=== PATIENT | female | born 1945 | race Caucasian/White ===

== ENCOUNTER 2022-08-30 12:07 | Outpatient (OUT) | payer MEDICARE, OTHER, SELFPAY ==
--- NOTE | 2022-08-30 12:18 | XR_ITS ---
The [address] [address] Patient Name: EDUARDO HOWARD MRN: [id number] date: 1945 Sex: F Assigned Patient Location: [facility] Current Patient Location: [facility] Accession/Order Number: [id number] Exam Date: 08/30/2022 12:24 Report Date: 08/30/2022 13:00 At the request of: ALLYSON SALEEM Procedure: XR abdomen 1V EXAMINATION: XR abdomen 1V HISTORY: Kidney Stones COMPARISON: XR KUB 12/04/2020 FINDINGS: KIDNEY/URETER - RIGHT: Several stones projecting over right kidney; large stone within inferior pole versus collection of smaller stones; unchanged. KIDNEY/URETER - LEFT: No visible renal or ureteral calcifications. PELVIS: No visible ureteral stones. BOWEL: No abnormal dilation or deviation. BONES: No acute abnormality. OTHER: Negative. No abnormal gaseous collections. XR/XR abdomen 1V IMPRESSION: 1. Grossly stable right nephrolithiasis. Electronically authenticated by: MARGARET ROMAN Date: 08/30/2022 13:00
== END 2022-08-30 12:08 | disposition home or self-care (01) ==
LOC: RAD 12:11
PROVIDERS: PCP Family Medicine; Visit Provider Urology
DX: N20.0 Calculus of kidney (principal)
CPT/HCPCS: 74018

== ENCOUNTER 2023-09-13 11:58 | Outpatient (OUT) | payer MEDICARE, OTHER, SELFPAY ==
--- NOTE | 2023-09-13 12:12 | XR_ITS ---
The [address] [address] Patient Name: EDUARDO HOWARD MRN: [id number] date: 1945 Sex: F Assigned Patient Location: [facility] Current Patient Location: Accession/Order Number: [id number] Exam Date: 09/13/2023 12:20 Report Date: 09/15/2023 05:43 At the request of: ALLYSON SALEEM Procedure: XR abdomen 1V EXAMINATION: XR abdomen 1V HISTORY: Kidney Stone N20.0 COMPARISON: XR abdomen 08/30/2022 FINDINGS: KIDNEY/URETER - RIGHT: Collection of several 3-4 mm stones within the lower pole of right kidney. KIDNEY/URETER - LEFT: No visible renal or ureteral calcifications. PELVIS: No visible ureteral stones. BOWEL: No abnormal dilation or deviation. BONES: No acute abnormality. OTHER: Negative. No abnormal gaseous collections. XR/XR abdomen 1V IMPRESSION: 1. Grossly stable right nephrolithiasis. Electronically authenticated by: MARGARET ROMAN Date: 09/15/2023 05:43
== END 2023-09-13 11:59 | disposition home or self-care (01) ==
LOC: RAD 12:01
PROVIDERS: PCP Family Medicine; Visit Provider Urology
DX: N20.0 Calculus of kidney (principal)
CPT/HCPCS: 74018

== ENCOUNTER 2024-09-17 11:33 | Outpatient (OUT) | payer MEDICARE, SELFPAY ==
--- NOTE | 2024-09-17 11:40 | XR_ITS ---
The [address] [address] Patient Name: EDUARDO HOWARD MRN: [id number] date: 1945 Sex: F Assigned Patient Location: [facility] Current Patient Location: [facility] Accession/Order Number: [id number] Exam Date: 09/17/2024 12:33 Report Date: 09/17/2024 12:35 At the request of: ALLYSON SALEEM MD Procedure: XR abdomen 1V KUB: CLINICAL INFORMATION: Kidney stone follow-up COMPARISON: KUB 09/13/2023 FINDINGS: Suspected right nephrolithiasis, largest stone measuring 7 mm. Findings are similar to the prior study. No bowel obstruction or free air. Phleboliths are seen within the pelvis. XR/XR abdomen 1V IMPRESSION: RIGHT NEPHROLITHIASIS, UNCHANGED FROM PRIOR STUDY. Impression dictated by: Betito Hollins Jr., D.O. 09/17/2024 12:35 PM Dictation Location: [place] [address] Electronically authenticated by: [id number] Y Date: 09/17/2024 12:35
== END 2024-09-17 11:34 | disposition home or self-care (01) ==
PROVIDERS: PCP Student in an Organized Health Care Education/Training Program; Visit Provider Urology
DX: N20.0 Calculus of kidney (principal)
CPT/HCPCS: 74018

== ENCOUNTER 2024-09-24 14:15 | Outpatient (OUT) | payer MEDICARE, SELFPAY ==
--- NOTE | 2024-09-24 14:21 | XR_ITS ---
[address] [address] Patient Name: EDUARDO HOWARD MRN: [id number] date: 1945 Sex: F Assigned Patient [facility]: [facility] Current Patient Location: [facility] Accession/Order Number: [id number] Exam Date: 09/24/2024 16:58 Report Date: 09/24/2024 17:04 At the request of: ALLYSON SALEEM MD Procedure: XR chest 2V Plain film chest Single view HISTORY: Preoperative assessment COMPARISON: None FINDINGS: SUPPORT DEVICES: None POSTSURGICAL CHANGES: None HEART: Mild cardiomegaly PULMONARY ALIREZA: Within normal limits MEDIASTINUM: Unremarkable LUNGS AND PLEURA: No acute lung process, pleural effusion or pneumothorax identified. BONY STRUCTURES: Degenerative change. Diffuse osteopenia ADDITIONAL FINDINGS None XR/XR chest 2V IMPRESSION: No acute process. Impression dictated by: Andre Álvarez M.D. 09/24/2024 5:04 PM [facility]ictation [facility] Electronically authenticated by: [id number] Y Date: 09/24/2024 17:04
--- NOTE | 2024-09-24 14:58 | PM.PRESUREVA ---
History of Present Illness History of Present Illness Chief complaint: right kidney stone, recurrent UTI, hesitance Narrative: Patient presents for presurgical testing. Please see HPI from Dr. Ding dated September 17, 2024. Review of Systems ROS Narrative Please see ROS from Dr. Ding dated September 17, 2024. [facility] Medical History (Updated 09/24/24 @ 14:45 by Raina Fine NP) Arthritis ?M19.90 - Unspecified osteoarthritis, unspecified site (ICD-10) Anemia ?D64.9 - Anemia, unspecified (ICD-10) Depression ?F32.A - Depression, unspecified (ICD-10) History of cardioversion ?Z92.89 - Personal history of other medical treatment (ICD-10) Pulmonary embolism ?I26.99 - Other pulmonary embolism without acute cor pulmonale (ICD-10) Peptic ulcer ?K27.9 - Peptic ulcer, site unspecified, unspecified as acute or chronic, without hemorrhage or perforation (ICD-10) GERD (gastroesophageal reflux disease) ?K21.9 - Gastro-esophageal reflux disease without esophagitis (ICD-10) Sick sinus syndrome ?I49.5 - Sick sinus syndrome (ICD-10) Chronic diastolic (congestive) heart failure ?I50.32 - Chronic diastolic (congestive) heart failure (ICD-10) CAD (coronary artery disease) ?I25.10 - Atherosclerotic heart disease of [place] coronary artery without angina pectoris (ICD-10) Cardiomyopathy ?I42.9 - Cardiomyopathy, unspecified (ICD-10) PVCs (premature ventricular contractions) ?I49.3 - Ventricular premature depolarization (ICD-10) Dyspnea on exertion ?R06.09 - Other forms of dyspnea (ICD-10) Left ventricular systolic dysfunction ?I51.89 - Other ill-defined heart diseases (ICD-10) Hypertension ?I10 - Essential (primary) hypertension (ICD-10) UTI (urinary tract infection) ?N39.0 - Urinary tract infection, site not specified (ICD-10) Atrial fibrillation ?I48.91 - Unspecified atrial fibrillation (ICD-10) Anticoagulated ?Z79.01 - assisted (current) use of anticoagulants (ICD-10) Kidney stones ?N20.0 - Calculus of kidney (ICD-10) Surgical History (Updated 09/24/24 @ 14:41 by Raina Fine, WE[employer] PAGE DEVELOPER) H/O breast biopsy ?Z98.890 - Other specified postprocedural states (ICD-10) H/O cataract extraction ?Z98.49 - Cataract extraction status, unspecified eye (ICD-10) Hx of tonsillectomy ?Z90.89 - Acquired absence of other organs (ICD-10) H/O tubal ligation ?Z98.51 - Tubal ligation status (ICD-10) H/O gastric bypass ?Z98.84 - Bariatric surgery status (ICD-10) S/P panniculectomy ?Z98.890 - Other specified postprocedural states (ICD-10) H/O colonoscopy ?Z98.890 - Other specified postprocedural states (ICD-10) History of cholecystectomy ?Z90.49 - Acquired absence of other specified parts of digestive tract (ICD-10) H/O lithotripsy ?Z98.890 - Other specified postprocedural states (ICD-10) Family History (Updated 09/24/24 @ 14:45 by Raina Fine NP) Other Family history of cancer Family history of diabetes mellitus Family history of heart disease Family history of hypertension Family history of myocardial infarction Family history of stroke Social History (Updated 09/24/24 @ 14:39 by Raina Fine NP) Within the past year, how often did you have a drink containing alcohol: never Score interpretation: A score less than 3 is consistent with normal alcohol consumption. Smoking status: Never smoker Non-prescribed substance use: denies use Previous occupational history: Retired Highest level of school completed/degree received: high school graduate Meds Home Medications and Allergies Home Medications ?Medication ?Instructions ?Recorded ?Confirmed ?Type amiodarone 200 mg tablet 200 mg PO Q24H 09/24/24 09/24/24 History dapagliflozin propanediol 10 mg 10 mg PO DAILY 09/24/24 09/24/24 History tablet (Farxiga) fluoxetine 20 mg capsule 20 mg PO DAILY 09/24/24 09/24/24 History losartan 100 mg tablet 100 mg PO DAILY 09/24/24 09/24/24 History magnesium 200 mg tablet 400 mg PO DAILY 09/24/24 09/24/24 History metoprolol tartrate 25 mg tablet 12.5 mg PO Q12H 09/24/24 09/24/24 History multivitamin (Daily Multi-Vitamin 1 tab PO DAILY 09/24/24 09/24/24 History tablet) pantoprazole 40 mg tablet,delayed 40 mg PO DAILY 09/24/24 09/24/24 History release potassium chloride 10 mEq 10 meq PO DAILY 09/24/24 09/24/24 History tablet,extended release(part/cryst) spironolactone 25 mg tablet 25 mg PO DAILY 09/24/24 09/24/24 History warfarin 2 mg tablet 2 mg PO QDAY 09/24/24 09/24/24 History Allergies Allergy/AdvReac Type Severity Reaction Status Date / Time hydrocodone AdvReac Vomiting Verified 09/24/24 14:35 Exam Narrative Exam Narrative: Constitutional: Awake, alert, comfortable, well-appearing, nontoxic, interactive, vital signs as charted Head: Normocephalic, atraumatic Neck: Supple, normal appearance, normal range of motion, no meningeal signs, no lymphadenopathy Respiratory: No respiratory distress, breath sounds clear Cardiovascular: Bradycardic rate, regular rhythm Abdomen: Nontender, normal bowel sounds, soft, no CVA tenderness Musculoskeletal: Normal gait, no swelling or edema Skin: No rashes or induration, no lesions, only visible skin inspected Neuro: No neurological deficits, normal sensation Psychiatric: Oriented ?3, normal affect Assessment and Plan Assessment and Plan (1) Kidney stones: Plan Cystoscopy, urethral dilation, right retrograde, right ureteroscopy, holmium laser, possible right stent placement scheduled with Dr. Ding October 04, 2024.
[2024-09-24 15:04] LABS: Hematocrit 43.0 % (36.0-48.0); Hemoglobin 13.9 g/dL (12.0-16.0); Immature Granulocytes Abs Auto 0.01 10^3/uL (0.00-0.03); Immature Granulocytes Pct Auto 0.2 % (0.0-0.5); Lymphocytes Absolute Auto 2.0 10^3/uL (1.2-3.8); Mean Corpuscular HGB Conc 32.3 g/dL (29.9-35.2); Mean Corpuscular Hemoglobin 28.7 pg (26.7-34.0); Mean Corpuscular Volume 88.8 fL (81.0-99.0); Platelet Count 192 10^3/uL (150-450); Red Blood Count 4.84 10^6/uL (4.20-5.40); White Blood Count 6.1 10^3/uL (4.0-11.0)
--- OUTSIDE RECORDS SUMMARY | 2024-09-24 15:10 | XMS_ITS | CCD ---
Author Organization [facility] Care Team Providers Care Financial Legal Assistant Name Role Phone IVONE, DR FORBES Primary Care Unavailable SALEEM, DR VALADEZ Consulting Unavailable SALEEM, DR VALADEZ Attending Unavailable SALEEM, DR VALADEZ Admitting Unavailable WEST, DR ANDREI Lawson Consulting Unavailable CHRISS, ALEX Consulting Unavailable DEFRANCE, DR FORBES Primary Care Unavailable SALEEM, DR VALADEZ Consulting Unavailable SALEEM, DR VALADEZ Attending Unavailable SALEEM, DR VALADEZ Admitting Unavailable ZIEBER, DR MARGARET [place]en[place] Consulting Unavailable SALEEM, DR VALADEZ Consulting Unavailable SALEEM, DR VALADEZ Attending Unavailable SALEEM, DR VALADEZ Admitting Unavailable DEFRANCE, DR FORBES Primary Care Unavailable DEFRANCE, DR FORBES Primary Care Unavailable SALEEM, DR VALADEZ Consulting Unavailable SALEEM, DR VALADEZ Attending Unavailable SALEEM, DR VALADEZ Admitting Unavailable DEFRANCE, DR FORBES Primary Care Unavailable SALEEM, DR VALADEZ Consulting Unavailable SALEEM, DR VALADEZ Attending Unavailable SALEEM, DR VALADEZ Admitting Unavailable SALEEM, DR VALADEZ Consulting Unavailable SALEEM, DR VALADEZ Attending Unavailable SALEEM, DR VALADEZ Admitting Unavailable DEFRANCE, DR FORBES Primary Care Unavailable ZIEBER, DR MARGARET [place] Consulting Unavailable LONGKAL Consulting Unavailable DefAndrei post Unavailable Unavailable Unavailable Unavailable Unavailable Ms. Delilah Turner Attending Unavailable Turner, Ms. Wong Referring Unavailable Defrance, Dr. Andrei Paul Primary Care Unava ilable Defrance, Dr. Andrei Paul Referring Unava ilable Defrance, Dr. Andrei Paul Primary Care Unava ilable MCGUINN II, Dr. JOSE MARTIN VALADEZ Attending Unavailable Defrance, Dr. Andrei Paul Primary Care Unava ilable MCGUINN II, Dr. JOSE MARTIN VALADEZ Referring Unavailable MCGUINN II, Dr. JOSE MARTIN VALADEZ Attending Unavailable MD Andrei Wiseman Primary Care Provider [phone] MD Jose Martin Jones Attending Provider Ivone, Andrei Paul Primary Care Unavailab le McGuinn II, Jose Martin Valadez Attending Unav ailable McGuinn II, Jose Martin Valadez Referring Unav ailable McGuinn II, Jose Martin Valadez Attending Unav ailable Defrance, Andrei Paul Primary Care Unavailab le McGuinn II, Jose Martin Valadez Referring Unav ailable McGuinn II, Jose Martin Valadez Attending Unav ailable McGuinn II, Jose Martin Valadez Referring Unav ailable Defrance, Andrei Paul Primary Care Unavailab le Turner, KM Norwoodna Attending Unavailable Turner, KM Norwoodna Referring Unavailable Defrance, Andrei Paul Primary Care Unavailab le Turner, KM Norwoodna Attending Unavailable Turner, KM Norwoodna Referring Unavailable Defrance, Andrei Paul Primary Care Unavailab le Defrance, Andrei Paul Primary Care Unavailab le Turner, KM Norwoodna Attending Unavailable Turner, KM Norwoodna Referring Unavailable McGuinn II, Jose Martin Valadez Attending Unav ailable Defrance, Andrei Paul Primary Care Unavailab le Defrance, Andrei Paul Referring Unavailab le MD Andrei Wiseman Primary Care Provider MD Jose Martin Jones Attending Provider MD Andrei Wiseman Primary Care Provider MD Jose Martin Jones Attending Provider ANDREI WISEMAN Primary Care Physician Andrei Wiseman MD Primary Care Provider MD Andrei Wiseman Primary Care Provider TRUNG Nassar Attending Provider TRUNG Turner Attending Provider [phone] MD Jose Martin Jones Attending Provider MD Andrei Wiseman Primary Care Provider DO Tami Cardoza Emergency Provider [phone] Andrei Wiseman MD Primary Care Provider Johnny NINO-Delilah BARBOUR Unavailable DELILAH TURNER Referring Unavailable DEFZE, ANDREI PAUL Primary Care Unavailab DELILAH Salcedo Referring Unavailable DEFRANCE, ANDREI PAUL Primary Care Unavailab le YVONNE HAAS Referring Unavailable DEFRANCE, ANDREI PAUL Primary Care Unavailab DELILAH Salcedo Referring Unavailable DEFRANCE, ANDREI PAUL Primary Care Unavailab le Ivone DE LA ROSA, Andrei Overton Primary Care Provider [phone] Ivone, Andrei Primary Care Unavailable HaasYvonne harrell Admitting Unavailable Haas, Yvonne Attending Unavailable Defrance, Andrei Primary Care Unavailable Delilah Turner Admitting Unavailable Johnny, Delilah Finley Attending Unavailable Jose Martin Jones Attending Unavail able Defrance, Andrei Primary Care Unavailable Jose Martin Jones Admitting Unavail able Tami Cardoza Admitting Unavailable Tami Cardoza Attending Unavailable Defrance, Andrei Primary Care Unavailable Dicksonrance , Andrei Overton Primary Care Provider Ivone DE LA ROSA, Andrei Overton Primary Care Provider [phone] Ngoc DE LA ROSA, Jerome Primary Care Provider Ivone DE LA ROSA, Andrei Paul Primary Care Provider IVONE, ANDREI Overton Attending Unavailable DEFRANCE, ANDREI Overton Referring Unavailable DEFRANCE, ANDREI Brooklynn Primary Care Unavailable JEROME QUICK Attending Unavailable NGOC, JEROME Referring Unavailable NGOC, JEROME Primary Care Unavailable JEROME QUICK Attending Unavailable DEFRANCE, ANDREI Overton Referring Unavailable NGOC, JEROME Primary Care Unavailable HARPER, Allyson R Attending Unavailable SALEEM, Allyson R Attending Unavailable SALEEM, Allyson R Attending Unavailable ASLEEM, Allyson R Admitting Unavailable SERVICE, JOBST Referring Unavailable DEFRANCE, ANDREI T Primary Care Unavailable SERVICE, JOBST Referring Unavailable DEFRANCE, ANDREI T Primary Care Unavailable SERVICE, JOBST Referring Unavailable DEFRANCE, ANDREI T Primary Care Unavailable SERVICE, JOBST Referring Unavailable DEFRANCE, ANDREI T Primary Care Unavailable SERVICE, JOBST Referring Unavailable DEFRANCE, ANDREI T Primary Care Unavailable SERVICE, JOBST Referring Unavailable DEFRANCE, ANDREI T Primary Care Unavailable SERVICE, JOBST Referring Unavailable DEFRANCE, ANDREI T Primary Care Unavailable SERVICE, JOBST Referring Unavailable DEFRANCE, ANDREI T Primary Care Unavailable YVONNE HAAS Referring Unavailable DEFRANCE, ANDREI T Primary Care Unavailable SERVICE, JOBST Referring Unavailable DEFRANCE, ANDREI T Primary Care Unavailable SERVICE, JOBST Referring Unavailable DEFRANCE, ANDREI T Primary Care Unavailable SERVICE, JOBST Referring Unavailable DEFRANCE, ANDREI T Primary Care Unavailable SERVICE, JOBST Referring Unavailable DEFRANCE, ANDREI T Primary Care Unavailable SERVICE, JOBST Referring Unavailable DEFRANCE, [facility] Primary Care Unavailable MEDICATION MANAGEMENT, [facility] Referr ing Unavailable DEFRANCE, [facility] Primary Care Unavailable MEDICATION MANAGEMENT, [facility] Referr ing Unavailable DEFRANCE, [facility] Primary Care Unavailable HAASYVONNE Referring Unavailable DEFRANCE, [facility] Primary Care Unavailable HAASYVONNE Referring Unavailable DEFRANCE, [facility] Primary Care Unavailable MEDICATION MANAGEMENT, [facility] Referr ing Unavailable DEFRANCE, [facility] Primary Care Unavailable MEDICATION MANAGEMENT, [facility] Referr ing Unavailable DEFRANCE, [facility] Primary Care Unavailable DEFRANCE, [facility] Primary Care Unavailable ROJELIO DYE Attending Unavailable MEDICATION MANAGEMENT, [facility] Referr ing Unavailable DEFRANCE, [facility] Primary Care Unavailable MEDICATION MANAGEMENT, [facility] Referr ing Unavailable DEFRANCE, [facility] Primary Care Unavailable MEDICATION MANAGEMENT, [facility] Referr ing Unavailable DEFRANCE, [facility] Primary Care Unavailable MARISOLMATTHEW Admitting Unavailable MARISOL, MATTHEW Sena Attending Unavailable MARISOLMATTHEW Referring Unavailable DEFRANCE, [facility] Primary Care Unavailable MEDICATION MANAGEMENT, [facility] Referr ing Unavailable DEFRANCE, [facility] Primary Care Unavailable MEDICATION MANAGEMENT, [facility] Referr ing Unavailable DEFRANCE, [facility] Primary Care Unavailable MEDICATION MANAGEMENT, [facility] Referr ing Unavailable DEFRANCE, [facility] Primary Care Unavailable MEDICATION MANAGEMENT, [facility] Referr ing Unavailable DEFRANCE, [facility] Primary Care Unavailable MEDICATION MANAGEMENT, [facility] Referr ing Unavailable NGOC, JEROME Primary Care Unavailable MEDICATION MANAGEMENT, [facility] Referr ing Unavailable NGOC, JEROME Primary Care Unavailable MEDICATION MANAGEMENT, [facility] Referr ing Unavailable NGOC, JEROME Primary Care Unavailable NGOC, JEROME Referring Unavailable NGOC, JEROME Primary Care Unavailable ALLYSON SALEEM Referring Unavailable NGOC, JEROME Primary Care Unavailable Allyson SALEEM Attending Unavailable YVONNE HAAS Attending Unavailable DEFRANCE, [facility] Primary Care Unavailab JOSE MARTIN Smith Referring Unavailable YVONNE HAAS Referring Unavailable DEFRANCE, ANDREI [place] Primary Care Unavailab le YVONNE HAAS Attending Unavailable YVONNE HAAS Referring Unavailable DEFRANCE, [facility] Primary Care Unavailab le YVONNE HAAS Referring Unavailable DEFRANCE, ANDREI PAUL Primary Care Unavailab le Allergies Allergy Classification Reported Allergen(s) Allergy Type Date of Onset Reaction(s) Facility (1 source) Acetaminophen / HYDROcodone Drug Allergy [facility] Repository (1 source) Misc-Drug Drug allergy (disorder) [facility] Repository (20 sources) Acetaminophen / oxyCODONE; Translations: [Percocet TABS] Drug Allergy 07-31-19 22 Hallucinations [facility] DO Work Phone: (17 sources) house dust Allergy to substance (finding) [facility] DO Work Phone: (17 sources) Animal dander - Cats Allergy to substance (finding) [facility] DO Work Phone: (17 sources) Animal dander - Dogs Allergy to substance (finding) [facility] DO Work Phone: (7 sources) narcotic analgesics; Translations: [narcotic analgesics] Drug allergy Moderate (severity modifier) (qualifier value) [facility] (20 sources) house dust allergenic extract; Translations: [HOUSE DUST] Drug Allergy 07-31-19 22 Unknown, Runny nose [facility] Work Phone: (20 sources) Cat Dander; Translations: [CAT DANDER] Allergy to substance 11-27-19 Unknown, Runny nose, Other (See Comments) [facility] (20 sources) Dog Dander; Translations: [DOG DANDER] Allergy to substance 11-27-19 Unknown, Runny nose, Other (See Comments) [facility] Work Phone: (4 sources) Acetaminophen / oxyCODONE; Translations: [OXYCODONE-ACETA MINOPHEN] Drug Allergy 07-31-19 [place] Repository (20 sources) Aspirin; Translations: [ASPIRIN] Drug Allergy 10-08-[address] [facility] (20 sources) Codeine; Translations: [CODEINE] Drug Allergy 08-26-[address] [facility] (20 sources) Ibuprofen; Translations: [IBUPROFEN] Drug Allergy 10-08-19 21 [facility] [employer] [facility] (20 sources) Morphine; Translations: [MORPHINE] Drug Allergy 08-26-19 [facility] (20 sources) Nitrofurantoin; Translations: [NITROFURANTOIN] Drug Allergy 07-31-19 [facility] [employer] Work Phone: (20 sources) Animal Dander; Translations: [ANIMAL DANDER] Propensity to adverse reactions to drug 07-31-[address] [facility] Medications Current Medications Medication Drug Class(es) Dates Sig (Normalized) Sig (Original) amiodarone hydrochloride 200 mg oral tablet (20 sources) Antiarrhythmic Start: 09-07-2021 End: 07-25-2024 take 1 mg by mouth once daily amiodarone 200 mg Tab mg tab(s), Oral, Daily, Refills(s) 0 Start Date: 09/13/22 Status: Ordered Repeat number: 1 amoxicillin 875 mg / clavulanate 125 mg oral tablet (2 sources) Penicillin-class Antibacterial Start: 07-26-2024 End: 07-31-2024 take 1 tablet by mouth once in the morning amoxicillin-pot clavulanate (AUGMENTIN) 875-125 mg per tablet Indications: Rhinopharyngitis Take 1 tablet by mouth in the morning and 1 tablet before bedtime. Do all this for 5 days. 10 tablet 07/26/2024 07/31/2024 Active apixaban 2.5 mg oral tablet (20 sources) Factor Xa Inhibitor Start: 07-22-2021 End: 12-13-2023 take 1 tablet by mouth in the morning, then take 1 tablet by mouth at bedtime apixaban (ELIQUIS) 2.5 mg tablet Take 1 tablet (2.5 mg total) by mouth in the morning and 1 tablet (2.5 mg total) before bedtime. 07/22/2021 Active Start: 07-23-2019 Eliquis Oral, BID, Refills(s) 0 Start Date: 07/23/19 Status: Ordered betamethasone 0.5 mg/ml / clotrimazole 10 mg/ml topical cream (3 sources) Azole Antifungal, Corticosteroid Start: 08-08-2024 End: 08-22-2024 clotrimazole-betamethasone (LOTRISONE) cream Indications: Yeast infection Apply 1 Application topically in the morning and 1 Application before bedtime. Do all this for 14 days. Apply to affected area 2 times daily. 15 g 1 08/08/2024 08/22/2024 Active Zyrtec (20 sources) Histamine-1 Receptor Antagonist Start: 07-23-2019 Zyrtec Daily, Refills(s) 0 Start Date: 07/23/19 Status: Ordered Start: 03-05-2019 End: 03-01-2023 take 1 tablet by mouth once daily cetirizine (ZyrTEC) 10 mg tablet Take 1 tablet (10 mg total) by mouth daily. 0 03/05/2019 02/01/2023 Discontinued (Alternate therapy) dapagliflozin 10 mg oral tablet (20 sources) Sodium-Glucose Cotransporter 2 Inhibitor Start: 12-29-2023 End: 12-28-2024 take 1 tablet by mouth in the morning dapagliflozin propanediol (FARXIGA) 10 mg tablet Take 1 tablet (10 mg total) by mouth in the morning. 12/29/2023 12/28/2024 Active doxycycline hyclate 100 mg oral capsule (1 source) Tetracycline-class Drug Start: 09-17-2024 take 1 capsule by mouth once daily doxycycline hyclate 100 mg Cap 100 mg = 1 cap(s), Oral, Daily, take one day before procedure and take one day after procedure, # 2 cap(s), Refills(s) 0, Pharmacy: [facility] [id number], 169, cm, 09/17/24 10:36:00 EDT, Height/Length Dosing, 93.1, kg, 09/17/24 10:36:00 EDT, Weight Dosing Start Date: 09/17/24 Status: Ordered Quantity: 2.0 Unit: cap(s) Repeat number: 1 empagliflozin 10 mg oral tablet (20 sources) Sodium-Glucose Cotransporter 2 Inhibitor Start: 02-10-2023 End: 02-10-2024 Jardiance 10 mg oral tablet Refills(s) 0 Start Date: 09/16/23 Status: Ordered Repeat number: 1 ferrous sulfate (20 sources) ferrous sulfate 324 mg (65 mg elemental iron) EC tablet (delayed release) Take 1 tablet (65 mg) by mouth. Active ferrous sulfate (IRON ORAL) Take by mouth. 1-2 times a week Active ferrous sulfate (IRON ORAL) Take by mouth. 1-2 times a week 0 Active fexofenadine hydrochloride 180 mg oral tablet (4 sources) Histamine-1 Receptor Antagonist Start: 02-01-2023 End: 08-04-2023 take 1 tablet by mouth in the morning fexofenadine (KRISTINA) 180 mg tablet Take 1 tablet (180 mg total) by mouth in the morning. 02/01/2023 08/04/2023 Discontinued (Alternate therapy) fluconazole 150 mg oral tablet (1 source) Azole Antifungal Start: 08-03-2024 End: 08-03-2024 take 1 tablet by mouth once fluconazole (DIFLUCAN) 150 mg tablet Indications: Yeast infection Take 1 tablet (150 mg total) by mouth once for 1 dose. 1 tablet 08/03/2024 08/03/2024 Active FLUoxetine 20 mg oral capsule (20 sources) Serotonin Reuptake Inhibitor Start: 09-17-2024 FLUoxetine 20 mg Cap 20 mg = 1 cap(s), Refills(s) 0 Start Date: 09/17/24 Status: Ordered Repeat number: 1 Start: 12-01-2023 take 20 mg by mouth once daily Fluoxetine Active 20 MG PO Daily December 01, 2023 12:00am Start: 02-01-2023 take 1 capsule [facility] FLUoxetine (PROzac) 20 mg capsule Take 1 capsule (20 mg total) by mouth in the morning. 90 capsule 3 01/25/2024 Active Start: 08-02-2022 End: 02-01-2023 take 1 mg by mouth once daily FLUoxetine 10 mg Cap mg cap(s), Oral, Daily, Refills(s) 0 Start Date: 09/13/22 Status: Ordered take 1 tablet by gabby once daily FLUoxetine (PROzac) 10 mg tablet Take 1 tablet (10 mg) by mouth once daily. 0 Active FLUoxetine HCl T ABS daily Quantity: 0 Refills: 0 Ordered: 07-Sep-2021 DO Active Losartan (20 sources) Angiotensin 2 Receptor Andres Start: 07-23-2019 losartan Oral, Daily , Refills(s) 0 Start Date: 07/23/19 Status: Ordered Repeat number: 1 Start: 07-23-2019 losartan Oral, Daily, Refills(s) 0 Start Date: 07/23/19 Status: Ordered Start: 10-02-2015 End: 07-25-2025 take 1 tablet by mouth in the morning losartan (COZAAR) 100 mg tablet Take 1 tablet (100 mg total) by mouth in the morning. 90 tablet 3 01/25/2024 Active magnesium oxide 400 mg oral tablet (20 sources) Start: 02-10-2023 End: 02-10-2024 take 1 tablet by mouth in the morning magnesium oxide (MAGOX) 400 mg tablet Take 1 tablet (400 mg total) by mouth in the morning. 02/10/2023 02/10/2024 Active metoprolol tartrate 25 mg oral tablet (20 sources) beta-Adrenergic Andres Start: 09-17-2024 take 1 tablet by mouth once daily Lopressor 25 mg oral tablet 25 mg = 1 tab(s), Oral, Daily, Refills(s) 0 Start Date: 09/17/24 Status: Ordered Repeat number: 1 Start: 07-25-2024 End: 07-25-2025 take 0.5 tablet by mouth in the morning, then take 0.5 tablet by mouth at bedtime metoprolol tartrate (LOPRESSOR) 25 mg tablet Take 0.5 tablets (12.5 mg total) by mouth in the morning and 0.5 tablets (12.5 mg total) before bedtime. 07/25/2024 07/25/2025 Active Start: 02-10-2023 End: 02-21-2023 take 1 tablet by mouth once daily metoprolol succinate XL (Toprol XL) 100 mg 24 hr tablet Indications: Cardiomyopathy, unspecified type (CMS/HCC) , Essential hypertension, benign Take 1 tablet (100 mg) by mouth once daily. Do not crush or chew. 90 tablet 3 02/10/2023 02/21/2023 Discontinued (Side effects) Start: 01-21-2022 End: 08-04-2023 take 1 tablet by mouth every twenty-four hours in the morning metoprolol succinate XL (TOPROL XL) 200 mg 24 hr tablet Take 1 tablet (200 mg total) by mouth in the morning. 01/21/2022 08/04/2023 Discontinued (Alternate therapy) Start: 01-21-2022 take 1 mg by mouth once daily metoprolol 200 mg ER Tab mg tab(s), Oral, Daily, Refills(s) 0 Start Date: 09/13/22 Status: Ordered Start: 11-26-2021 End: 02-01-2023 take 1 tablet by mouth twice daily metoprolol tartrate (LOPRESSOR) 100 mg tablet TAKE ONE TABLET BY MOUTH TWICE A DAY 180 tablet 1 11/26/2021 02/01/2023 Discontinued (Alternate therapy) Start: 07-19-2017 End: 07-21-2017 Metoprolol Tartrate Disconti nued SOLUTION July 19, 2017 12:00am July 21, 2017 2:37pm MULTIVITAMIN ORAL (20 sources) MULTIVITAMIN ORA L Take by mouth. Active MULTIVITAMIN ORA L Take by mouth. 0 Active pantoprazole 40 mg delayed release oral tablet (20 sources) Proton Pump Inhibitor Start: 09-13-2022 take 1 mg by mouth once daily Pantoprazole [address] Tab mg tab(s), Oral, Daily, Refills(s) 0 Start Date: 09/13/22 Status: Ordered Repeat number: 1 Start: 08-17-2022 End: 08-17-2024 take 1 tablet by mouth twice daily pantoprazole (PROTONIX) 40 mg EC tablet Indications: PUD (peptic ulcer disease) TAKE 1 TABLET BY MOUTH 2 TIMES A DAY 180 tablet 1 08/17/2024 Active potassium chloride 10 meq extended release oral tablet (15 sources) take 1 tablet by gabby th once daily potassium chloride CR 10 mEq ER tablet Take 1 tablet (10 mEq) by mouth once daily. Do not crush, chew, or split. Active take 1 tablet by mouth once cheikh y Potassium Chloride Lori ER 20 MEQ Oral Tablet Extended Release TAKE 1 TABLET DAILY. Quantity: 0 Refills: 0 Ordered: 22-Jul-2021 DO Active potassium citrate 10 meq extended release oral tablet (20 sources) Start: 09-17-2024 take 1 tablet by mouth twice daily potassium CITRATE 10 mEq ER Tab 10 mEq, 1 tab(s), Oral, BID, 180 tab(s), Refill(s) 3, [facility] [id number], 169, cm, 09/17/24 10:36:00 EDT, Height/Length Dosing, 93.1, kg, 09/17/24 10:36:00 EDT, Weight Dosing Start Date: 09/17/24 Status: Ordered Quantity: 180.0 Unit: tab(s) Repeat number: 4 Indications: Calculus of kidney; Start: 12-01-2023 take 25 mg by mouth once daily potassium citrate cr Active 25 MG PO Daily December 01, 2023 12:00am Start: 09-16-2023 take 1 tablet by gabby th twice daily potassium CITRATE 10 mEq ER Tab 10 mEq, 1 tab(s), Oral, BID, 180 tab(s), Refill(s) 3, [facility] [id number], 169, cm, 09/16/23 10:22:00 EDT, Height/Length Dosing, 94, kg, 09/16/23 10:22:00 EDT, Weight Dosing Start Date: 09/16/23 Status: Ordered Start: 09-13-2022 End: 09-08-2023 potassium citrate (UROCIT-K) 10 mEq (1,080 mg) CR tablet Take 2 tablets (20 mEq total) by mouth. 09/13/2022 08/04/2023 Discontinued Start: 09-13-2022 End: 09-08-2023 take 2 tablets by mouth once daily potassium CITRATE 10 mEq ER Tab 20 mEq, 2 tab(s), Oral, Daily for 30 day(s), 60 tab(s), Refill(s) 11, [facility] [id number], 169, cm, 09/13/22 10:29:00 EDT, Height/Length Dosing, 97, kg, 09/13/22 10:29:00 EDT, Weight Dosing Start Date: 09/13/22 Stop Date: 09/08/23 Status: Ordered take 25 mg by mouth in the morning POTASSIUM CITRATE ORAL Take 25 mg by mouth in the morning and 25 mg before bedtime. Active spironolactone 25 mg oral tablet (20 sources) Aldosterone Antagonist Start: 09-07-2021 End: 07-25-2025 take 1 mg by mouth once daily spironolactone 25 mg Tab mg tab(s), Oral, Daily, Refills(s) 0 Start Date: 09/13/22 Status: Ordered Repeat number: 1 warfarin sodium 2.5 mg oral tablet (20 sources) Vitamin K Antagonist Start: 09-17-2024 warfarin 2.5 mg Tab 2.5 mg = 1 tab(s), Refills(s) 0 Start Date: 09/17/24 Status: Ordered Repeat number: 1 Start: 04-30-2024 take 1.5-2.5 tablets by mouth in the evening warfarin (COUMADIN) 1 mg tablet Indications: Atrial fibrillation, unspecified type (CMS-HCC) Take 1.5-2.5 tablets (1.5-2.5 mg total) by mouth in the evening. 225 tablet 1 04/30/2024 Active Start: 12-01-2023 Warfarin Activ e 5 MG PO .2xweek December 01, 2023 12:00am Start: 11-04-2023 End: 04-30-2024 warfarin (Coumadin) 2.5 mg t ablet Take 1 tablet (2.5 mg) by mouth. 11/04/2023 Active Start: 10-25-2023 End: 11-04-2023 take 1 tablet by mouth in the evening warfarin (COUMADIN) 5 mg tablet Indications: Atrial fibrillation, unspecified type (CMS-HCC) Take 1 tablet (5 mg total) by mouth in the evening. As directed by [facility] Medication Therapy Management (MTM). 30 tablet 10/25/2023 11/04/2023 Discontinued (Dose adjustment) Completed/Discontinued Medications Medication Drug Class(es) Dates Sig (Normalized) Sig (Original) flecainide acetate 50 mg oral tablet (5 sources) Antiarrhythmic take 1 tablet by mouth twice daily Flecainide Acetate 50 MG Oral Tablet TAKE 1 TABLET TWICE DAILY. Quantity: 180 Refills: 3 Ordered: 22-Jul-2021 DO Active methylPREDNISolone 4 mg oral tablet (4 sources) Corticosteroid Start: 5 End: 5 take 1 tablet by mouth in the morning methylPREDNISolone (MEDROL, PRICE,) 4 mg tablet Indications: Rhinopharyngitis Take 1 tablet (4 mg total) by mouth in the morning. follow package directions. 21 tablet 07/26/2024 08/08/2024 Discontinued (Patient Stopped On Own) regadenoson (Lexiscan) injection 0.4 mg (1 source) Start: 4 End: 4 regadenoson (Lexiscan) injection 0.4 mg sacubitril 24 mg / valsartan 26 mg oral tablet (1 source) Angiotensin 2 Receptor Andres Start: 4 End: 4 take 1 tablet by mouth twice daily sacubitriL-valsartan (Entresto) 24-26 mg tablet Indications: Cardiomyopathy, unspecified type (CMS/HCC) , Essential hypertension, benign Take 1 tablet by mouth 2 times a day. 180 tablet 3 02/10/2023 02/21/2023 Discontinued (Cost of medication) Problems Active Problems Problem Classification Problem Date Documented Da te Episodic/Chronic Anxiety disorders (1 source) Anxiety; Translations: [Anxiety disorder, unspecified] 12-01-2023 Chronic Calculus of urinary tract (20 sources) Calculus of kidney; Translations: [History of calculus of kidney] Onset: 07-21-2017 Episodic Cardiac dysrhythmias (20 sources) Unspecified atrial fibrillation; Translations: [Paroxysmal atrial fibrillation] Onset: 02-01-2019 01-17-2023 Chronic Congestive heart failure; nonhypertensive (20 sources) Chronic diastolic heart failure; Translations: [Chronic diastolic (congestive) heart failure] Onset: 03-09-2019 02-21-2023 Chronic Coronary atherosclerosis and other heart disease (20 sources) Coronary atherosclerosis; Translations: [Coronary atherosclerosis of unspecified type of vessel, chilkoot or graft] Onset: 09-21-2021 01-17-2023 Chronic E Codes: Fall (1 source) Fall Onset: 04-09-2024 Essential hypertension (20 sources) Essential (primary) hypertension; Translations: [Benign essential hypertension] Onset: 03-03-2020 09-29-2020 Chronic Gastroduodenal ulcer (except hemorrhage) (20 sources) Peptic ulcer; Translations: [Peptic ulcer, site unspecified, unspecified as acute or chronic, without hemorrhage or perforation] Onset: 02-08-2019 02-08-2019 Chronic Genitourinary symptoms and ill-defined conditions (11 sources) Increased frequency of urination; Translations: [History of urinary tract infection] Onset: 09-16-2023 07-23-2019 Episodic Mycoses (3 sources) Mycosis; Translations: [Candidiasis, unspecified] Onset: 08-08-2024 08-03-2024 Episodic Other aftercare (20 sources) Drug therapy finding; Translations: [Long-term (current) use of anticoagulants] Episodic Other aftercare (20 sources) Long-term current use of anticoagulant; Translations: [prison (current) use of anticoagulants] Onset: 09-13-2022 Episodic Other aftercare (20 sources) Taking high risk medication; Translations: [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] Onset: 11-26-2022 01-17-2023 Episodic Other and unspecified benign neoplasm (20 sources) Acoustic neuroma; Translations: [Benign neoplasm of cranial nerves] Onset: 11-26-2022 Resolved: 02-21-2023 11-26-2022 Chronic Other and unspecified benign neoplasm (1 source) Benign neoplasm of cranial nerves; Translations: [Benign neoplasm of cranial nerves] Onset: 08-04-2023 Chronic Other circulatory disease (17 sources) H/O: hypertension; Translations: [Personal history of other diseases of circulatory system] Episodic Other circulatory disease (5 sources) H/O: atrial fibrillation 09-29-2020 Episodic Other connective tissue disease (17 sources) H/O: arthritis; Translations: [Personal history of arthritis] Episodic Other gastrointestinal disorders (1 source) Bariatric surgery status; Translations: [BARIATRIC SURGERY STATUS] Onset: 11-20-2020 Episodic Other lower respiratory disease (1 source) Dyspnea on exertion; Translations: [Other forms of dyspnea] 12-01-2023 Episodic Other lower respiratory disease (1 source) Shortness of breath; Translations: [Shortness of breath] Onset: 12-01-2023 Episodic Other lower respiratory disease (1 source) Cough Onset: 07-26-2024 Episodic Other nutritional; endocrine; and metabolic disorders (1 source) Morbid (severe) obesity due to excess calories; Translations: [MORBID SEVERE OBES D/T EXCESS EDWIN] Onset: 12-08-2020 Chronic Other nutritional; endocrine; and metabolic disorders (1 source) Body mass index (BMI) 40.0-44.9, adult; Translations: [BODY MASS INDEX BMI 40.0-44.9 ADULT] Onset: 12-08-2020 Chronic Other nutritional; endocrine; and metabolic disorders (17 sources) Obesity; Translations: [Obesity, unspecified] Chronic Other nutritional; endocrine; and metabolic disorders (20 sources) Body mass index 40+ - severely obese; Translations: [Body mass index (BMI) 40.0-44.9, adult] Onset: 03-09-2019 Resolved: 08-02-2022 09-29-2020 Chronic Other nutritional; endocrine; and metabolic disorders (18 sources) Body mass index 30+ - obesity; Translations: [Body mass index (BMI) 34.0-34.9, adult] Onset: 01-17-2023 01-17-2023 Chronic Other nutritional; endocrine; and metabolic disorders (2 sources) Obese class I; Translations: [Obesity, Class I, BMI 30-34.9] 12-13-2023 Chronic Other nutritional; endocrine; and metabolic disorders (2 sources) Body mass index (BMI) 32.0-32.9, adult; Translations: [Body mass index (BMI) 32.0-32.9, adult] Onset: 07-25-2024 Chronic Other nutritional; endocrine; and metabolic disorders (2 sources) Body mass index (BMI) 33.0-33.9, adult; Translations: [Body mass index (BMI) 33.0-33.9, adult] Onset: 12-13-2023 Chronic Other upper respiratory disease (1 source) Nasal congestion Onset: 07-26-2024 Episodic Other upper respiratory disease (1 source) Pain in throat Onset: 07-26-2024 Episodic Other upper respiratory infections (2 sources) Nasopharyngitis; Translations: [Acute nasopharyngitis [common cold]] Onset: 07-26-2024 07-26-2024 Episodic Sudha-; endo-; and myocarditis; cardiomyopathy (except that caused by tuberculosis or sexually transmitted disease) (20 sources) Cardiomyopathy; Translations: [Other primary cardiomyopathies] Onset: 09-21-2021 01-17-2023 Chronic Phlebitis; thrombophlebitis and thromboembolism (1 source) Personal history of other venous thrombosis and embolism; Translations: [PERS HX OTH VENOUS THROMBOSIS AND EMBO] Onset: 12-08-2020 Episodic Residual codes; unclassified (1 source) Acquired absence of other specified parts of digestive tract; Translations: [ACQ ABSENCE OTH PART DIGESTV TRACT] Onset: 11-20-2020 Episodic Thyroid disorders (2 sources) Acquired hypothyroidism; Translations: [Hypothyroidism, unspecified] Onset: 08-08-2024 08-08-2024 Chronic Unclassified (1 source) CONTACT W/AND (SUSP) EXPOS COVID-19; Translations: [CONTACT W/AND (SUSP) EXPOS COVID-19] Onset: 12-05-2020 Unclassified (1 source) Cardiomyopathy, unspecified; Translations: [Cardiomyopathy, unspecified] Onset: 02-21-2023 Unclassified (1 source) Annual Exam Onset: 08-08-2024 Unclassified (2 sources) Single subsegmental pulmonary embolism without acute cor pulmonale; Translations: [Single subsegmental thrombotic pulmonary embolism without acute cor pulmonale] Onset: 11-11-2020 Unclassified (1 source) Routine Check up Onset: 01-25-2024 Unclassified (1 source) ill Onset: 04-09-2024 Urinary tract infections (7 sources) Urinary tract infectious disease; Translations: [Urinary tract infection, site not specified] Onset: 09-13-2022 Episodic Past or Other Problems Problem Classification Problem Date Documented Da te Episodic/Chronic Fracture of upper limb (2 sources) Unspecified fracture of the lower end of right radius, initial encounter for closed fracture; Translations: [Nondisplaced fracture of right ulna styloid process, initial encounter for closed fracture] Onset: 04-09-2024 Episodic Mood disorders (20 sources) Mood disorders Onset: 01-25-2024 Resolved: 08-08-2024 01-25-2024 Other aftercare (3 sources) 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 animal 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; Translations: [CORRECTION CURRNT USE ANTICOAGULANTS] Onset: 12-08-2020 Episodic Other aftercare (4 sources) 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; Translations: [OTH CORRECTION CURRENT DRUG THERAPY] Onset: 12-08-2020 Episodic Other gastrointestinal disorders (20 sources) History of bypass of stomach; 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] Onset: 07-21-2017 07-21-2017 Episodic Other lower respiratory disease (20 sources) Dyspnea; Translations: [Shortness of breath] Onset: 02-16-2019 11-26-2022 Episodic Other screening for suspected conditions (not mental disorders or infectious disease) (20 sources) Echocardiogram abnormal; Translations: [Nonspecific (abnormal) findings on radiological and other examination of other intrathoracic organs] Onset: 03-14-2023 01-17-2023 Episodic Pulmonary heart disease (20 sources) Pulmonary embolism; Translations: [Other pulmonary embolism without acute cor pulmonale] Onset: 03-03-2019 11-11-2020 Episodic Residual codes; unclassified (6 sources) Never smoked tobacco; Translations: [Other specified health status] Onset: 05-24-2023 12-13-2023 Episodic Residual codes; unclassified (2 sources) Other specified health status; Translations: [Other specified health status] Onset: 05-24-2023 Episodic Unclassified (17 sources) Never smoked tobacco; Translations: [Never a smoker] Unclassified (20 sources) Onset: 07-29-2020 Resolved: 01-17-2023 01-17-2023 Results Test Name Value Interpretation Reference Range Facility C Urineon 09-19-2024 Bacteria identified Cx Nom (U) Microbiology PROCEDURE: Urine Culture [R1] SOURCE: U CleanCatch BODY SITE: COLLECTED DATE/TIME: 09/17/2024 11:12 EDT RECEIVED DATE/TIME: 09/17/2024 17:02 EDT START DATE/TIME: 09/17/2024 17:02 EDT FREE TEXT SOURCE: HARPER DE LA ROSA, Allyson SALEEM MD, Allyson Montenegro FINAL REPORTS Final Report [] Verified Date/Time: 09/19/2024 07:00 EDT >100,000 cfu/ml Escherichia coli SUSCEPTIBILITY RESULTS _ LEGEND: S=Susceptible, N/R=Not Reported, Blank=Data not available, or drug not advisable or tested, I=Intermediate, ESBL=Extended spectrum beta-lactamase, R=Resistant, TFG=Thymidine-dependent strain, TEQUILA=Beta-lactamase positive, LOUIE=mcg/m;(mg/L), S*=Predicted susceptible interp, R*=Predicted resistant interp EC Antibiotic OLUIE Dilutn LOUIE Interp Ampicillin <=8 S Ampicillin/ <=8/4 S Sulbactam Cefazolin <=2 S Cefepime <=2 S Ceftazidime/ <=8 S Avibactam Ceftriaxone <=1 S Cefuroxime <=4 S Ciprofloxacin <=0.25 S Ertapenem <=0.5 S Gentamicin <=2 S Levofloxacin <=0.5 S Meropenem <=1 S Nitrofurantoin <=32 S Piperacillin/ <=8 S Tazobactam Tetracycline <=4 S Tobramycin <=2 S Trimethoprim/ <=2/38 S Sulfa Performing Locations R1: This test was performed at: [facility], [address] [place] [address], [id number] , , [facility] Comment on above: Performed By: #### [id number] #### [facility] [address] [place] [id number] Ambulatory Visit Summaryon 0 09-17-2024 Ambulatory Visit Summary Ambulatory Visit Summary EDUARDO HOWARD :1945 Visit Date:09/17/2024 Ambulatory Visit Instructions Your Diagnosis Kidney stones History of UTI Urinary hesitancy Anticoagulant long-term use Tests Performed XR Abdomen 1 View -- Results Pending -- Please visit your patient portal for your results or contact your primary care physician. Your Care Team Attending Physician - HARPER DE LA ROSA, Allyson Montenegro Primary Care Physician - ANDREI WISEMAN MD This Is Your Medications List potassium citrate (potassium CITRATE 10 mEq ER Tab) Contact prescribing physician if questions or concerns amiodarone (amiodarone 200 mg Tab) empagliflozin (Jardiance 10 mg oral tablet) fluoxetine (FLUoxetine 20 mg Cap) losartan metoprolol (Lopressor 25 mg oral tablet) pantoprazole (Pantoprazole [address] Tab) spironolactone (spironolactone 25 mg Tab) warfarin (warfarin 2.5 mg Tab) Procedures Performed ESWL of kidney (12/04/2020), ESWL of kidney (11/13/2020), Cholecystectomy (2018), Cataract surgery (2016), Colonoscopy (2007), Panniculectomy (01/2005), Biopsy of uterine ligament (2002), Colonoscopy (2002), Arianne-en-y gastric bypass (2002), Tubal ligation (1977), Tonsillectomy (194). Discharge Vitals Temperature (Temporal Artery) 37 ???C Heart Rate (Peripheral) 62 Respiratory Rate 18 Blood Pressure 128/70 Height 169 cm Height 67 in Weight 93.1 kg Weight 205.25 lb BMI 32.6 What to do next You Need to Schedule the Following Appointments Follow Up with HARPER DE LA ROSA, JANAY Bowling When: Comments: sched cysto/UD Where: [facility] [facility] [place] [address] Medications What How Much When Instructions Unchanged potassium citrate (potassium CITRATE 10 mEq ER Tab) 1 Tablets By Mouth 2 times a day Unchanged amiodarone (amiodarone 200 mg Tab) By Mouth Every day Contact prescribing physician if questions or concerns Unchanged empagliflozin (Jardiance 10 mg oral tablet) Contact prescribing physician if questions or concerns Unchanged fluoxetine (FLUoxetine 20 mg Cap) 1 Capsules Contact prescribing physician if questions or concerns Unchanged losartan By Mouth Every day Contact prescribing physician if questions or concerns Unchanged metoprolol (Lopressor 25 mg oral tablet) 1 Tablets By Mouth Every day Contact prescribing physician if questions or concerns Unchanged pantoprazole (Pantoprazole [address] Tab) By Mouth Every day Contact prescribing physician if questions or concerns Unchanged spironolactone (spironolactone 25 mg Tab) By Mouth Every day Contact prescribing physician if questions or concerns Unchanged warfarin (warfarin 2.5 mg Tab) 1 Tablets Contact prescribing physician if questions or concerns Allergies narcotic analgesics (Moderate) Problems Ongoing - Any problem that you are currently receiving treatment for. Anticoagulant long-term use BMI 40.0-44.9, adult History of atrial fibrillation History of UTI Hypertension Kidney stones Urinary frequency Urinary hesitancy Urinary tract infection Patient Survey You may receive a survey via text or e-mail asking about your office visit. Please share your experience with us by completing your survey. We appreciate your feedback and thank you for choosing us for your care. Education Materials Cystoscopy Cystoscopy is a procedure that is used to help diagnose and sometimes treat conditions that affect the lower urinary tract. The lower urinary tract includes the bladder and the urethra. The urethra is the tube that drains urine from the bladder. Cystoscopy is done using a thin, tube-shaped instrument with a light and camera at the end (cystoscope). The cystoscope may be hard or flexible, depending on the goal of the procedure. The cystoscope is inserted through the urethra, into the bladder. Cystoscopy may be recommended if you have: ??? Urinary tract infections that keep coming back. ??? Blood in the urine (hematuria). ??? An inability to control when you urinate (urinary incontinence) or an overactive bladder. ??? Unusual cells found in a urine sample. ??? A blockage in the urethra, such as a urinary stone. ??? Painful urination. ??? An abnormality in the bladder found during an intravenous pyelogram (IVP) or CT scan. Cystoscopy may also be done to remove a sample of tissue to be examined under a microscope (biopsy). Tell a health care provider about: ??? Any allergies you have. ??? All medicines you are taking, including vitamins, herbs, eye drops, creams, and [id number] medicines. ??? Any problems you or family members have had with anesthetic medicines. ??? Any blood disorders you have. ??? Any surgeries you have had. ??? Any medical conditions you have. ??? Whether you are or may be . What are the risks? Generally, this is a safe procedure. However, problems may occur, including: ??? Infection (more content not included)... Normal [facility] Urology Office/Clinic Noteon 09-17-2024 Urology Office/Clinic Note Urology Office/Clinic Note Chief Complaint 1 year with KUB HPI Staff Pt is a 79 year old female here for 1 year follow up with KUB. KUB was done 09/14/24 @ [facility] Dx: kidney stones, UTI, AC. Pt denies all urinary complaints today but her UA is positive Nitrites and small Leuks. History of Present Illness Tests reviewed: reviewed UA, KUB I have reviewed the previous health record information and history for this patient from Dr. Saleem. I have reviewed and verified the staff HPI to be accurate for this encounter. Review of Systems PHQ Score Initial Depression Screen Score: 0 SCORE ROS - Provider Constitutional: denies weight loss, denies hot flashes. Eyes: denies eye problems. Gastrointestinal: denies nausea, denies vomiting. Cardiovascular: denies chest pain or angina. Integumentary: no dryness Musculoskeletal: denies musculoskeletal symptoms. ENMT: denies otolaryngeal symptoms. Respiratory: no shortness of breath. Heme/Lymph: denies easy bleeding tendency, denies easy bruising tendency. Psychiatric: no confusion, no anxiety. Genitourinary: See HPI. Physical Exam Vitals & Measurements T: 37 ???C(Temporal Artery) HR: 62(Peripheral) RR: 18 BP: 128/70 HT: 169 cm HT: 67 in WT: 93.1 kg WT: 205.25 lb BMI: 32.6 General Appearance: alert , no acute distress, well nourished, well developed female. Assessment/Plan 1. Kidney stones (N20.0: Calculus of kidney) S/p R ESWL 11/13/20 and 12/04/20. Shares she has had a stone every 4 years since she was 30 yo. [1] KUB 08/30/22 [facility] - several R renal stones, large stone within inferior pole vs collection of smaller stones, unchanged from KUB 12/04/20. KUB 09/13/23 [facility] - collection of several 3-4 mm stones within the lower pole of R kidney. Overall stable. KUB 09/14/24 [facility] - Multiple R renal calculi. Taking potassium citrate 10mg ER bid. Reviewed imaging results, unable to see film to determine size. Pt wishes to repeat KUB to re-evaluate. Drinks 2 cans of pop daily. Recommended pt to drastically increase fluid intake; preferably water, clear pop, and sugar free lemonade. -Cont potassium citrate wo changes. Refills sent. -Increase fluid intake -Repeat KUB. Will call pt with results. 2. History of UTI (Z87.440: Personal history of urinary (tract) infections) UCx 09/24/22 - >100k E Coli. Intermittently she will have foul smelling urine and it improves after she increases her water intake. UA today shows small leuks and positive nitrites. Asx. No current malodorous urine. -Urine sample to be sent for cx. Will call pt if pos and rx abx (pt states she always gets a yeast infection with abx). -Cont sx monitoring -scheduling cysto/UD per #3 3. Urinary hesitancy (R39.11: Hesitancy of micturition) Reports hesitancy in starting stream at times. Performs double void maneuvers to ensure she empties. Discussed urethral dilation to help with emptying and prevent UTIs. Risks/benefits discussed. Pt willing to proceed. -Will schedule Cysto with [facility]D. The procedure risks, benefits, details, and treatment alternatives have been discussed with the patient. These include bleeding, infection, recurrent scar in over 50%, need for repeat dilation or other procedures, no symptom relief with dilation, among others. Full informed consent has been obtained. Will order Local anesthesia. 4. 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 Elevated risk for periop complications. [2] Follow-up With When Contact Information HARPER DE LA ROSA, Allyson Montenegro, URL [address] [facility] [place] [address] Additional Instructions: sched cysto/UD Patient Education Cystoscopy Urethral Dilation Dietary Guidelines to Help Prevent Kidney Stones ILaney, personally scribed for Dr. Saleem on 09/17/2024 11:08:12. . Documentation recorded by the scribe, Laney Ruelas, accurately reflects the services(s) I performed and decisions made by me. Authenticated by Dr. Saleem on 09/17/2024 11:19:14. Problem List/Past Medical History Ongoing Anticoagulant long-term use BMI 40.0-44.9, adult History of atrial fibrillation History of UTI Hypertension Kidney stones Urinary frequency Urinary hesitancy Urinary tract infection Historical No qualifying data Procedure/Surgical History ESWL of kidney (12/04/2020), ESWL of kidney (11/13/2020), Cholecystectomy (2018), Cataract surgery (2016), Colonoscopy (2007), Panniculectomy (01/2005), Biopsy of uterine ligament (2002), Colonoscopy (2002), Arianne-en-y gastric bypass (2002), Tubal ligation (1977), Tonsillectomy (1949). Medications amiodarone 200 mg Tab, Oral, Daily FLUoxetine 20 mg Cap, 20 mg= 1 cap(s) Jardiance 10 mg oral tablet Lopressor 25 mg oral tablet, 25 mg= 1 tab(s), Oral, Daily losartan, Oral, Daily Pantoprazole [address] Tab, Oral, Daily potassium CITRATE 10 mEq ER Tab, 10 mEq= 1 tab(s), Oral, BID, 3 refills spironola (more content not included)... Normal [facility] Comment on above: Result Comment: Elec tronically Signed By: Allyson SALEEM MD\.br\Date and Time Signed: 09/17/24 11:19 EDT\.br\Electronically Co-Signed By: Laney Ruelas\.br\Date and Time Co-Signed: 09/17/24 11:16 EDT XR ABDOMEN AP 1 VWon 025 XR ABDOMEN AP 1 VW XR ABDOMEN AP 1 VW CLINICAL HISTORY: 4 renal calculus Comparison: 05/12/2021 Views: 2 view FINDINGS: * Multiple right-sided renal calculi. Bowel gas pattern nonobstructive. Prior cholecystectomy. Degenerative changes lower lumbar spine. IMPRESSION: * Multiple right-sided renal calculi Finalized by Willem Adhikari MD on 09/17/2024 10:25 AM Normal [facility] CBC WITH AUTO DIFFERENTIALon 09-13-2024 Band form neutrophils/100 WBC (Bld) 1 % Normal [facility] Comment on above: Result Comment: This is an appended report. These results have been appended to a previously preliminary verified report. Performed By: #### C BCA #### [facility]) [address] [place] [address] VIR CELLAVISION BASOPHILS ABSOLUTE COUNT (10*3/UL) BY MANUAL COUNT 0.2 10*3/uL Normal 0.0-0.2 [facility] Comment on above: Result Comment: This is an appended report. These results have been appended to a previously preliminary verified report. Performed By: #### C BCA #### [facility] ([facility]) [address] [place] [address] VIR CELLAVISION BASOPHILS RELATIVE PERCENT BY MANUAL COUNT 3 % Normal [facility] Comment on above: Result Comment: This is an appended report. These results have been appended to a previously preliminary verified report. Performed By: #### C BCA #### [facility] ([facility]) [address] [place] [address] VIR CELLAVISION DIFFERENTIAL TYPE MANUAL DIFFERENTIAL Normal [facility] Comment on above: Result Comment: This is an appended report. These results have been appended to a previously preliminary verified report. Performed By: #### C BCA #### [facility] ([facility]) [address] [place] [address] VIR CELLAVISION EOSINOPHILS ABSOLUTE COUNT (10*3/UL) BY MANUAL COUNT 0.3 10*3/uL Normal 0.0-0.4 [facility] Comment on above: Result Comment: This is an appended report. These results have been appended to a previously preliminary verified report. Performed By: #### C BCA #### [facility] ([facility]) [address] [place] [address] VIR CELLAVISION EOSINOPHILS PERCENT BY MANUAL COUNT 5 % Normal [facility] Comment on above: Result Comment: This is an appended report. These results have been appended to a previously preliminary verified report. Performed By: #### C BCA #### [facility] ([facility]) [address] [place] [address] VIR CELLAVISION LYMPHOCYTES ABSOLUTE COUNT (10*3/UL) BY MANUAL COUNT 2.5 10*3/uL Normal 1.0-3.5 [facility] Comment on above: Result Comment: This is an appended report. These results have been appended to a previously preliminary verified report. Performed By: #### C BCA #### [facility] ([facility]) [address] [place] [address] VIR CELLAVISION LYMPHOCYTES RELATIVE PERCENT BY MANUAL COUNT 36 % Normal [facility] Comment on above: Result Comment: This is an appended report. These results have been appended to a previously preliminary verified report. Performed By: #### C BCA #### [facility] ([facility]) [address] [place] [address] VIR CELLAVISION MONOCYTES ABSOLUTE COUNT (10*3/UL) IN BLOOD BY MANUAL COUNT 0.6 10*3/uL Normal 0.0-0.9 [facility] Comment on above: Result Comment: This is an appended report. These results have been appended to a previously preliminary verified report. Performed By: #### C BCA #### [facility] ([facility]) [address] [place] [address] VIR CELLAVISION MONOCYTES RELATIVE PERCENT BY MANUAL COUNT 9 % Normal [facility] Comment on above: Result Comment: This is an appended report. These results have been appended to a previously preliminary verified report. Performed By: #### C BCA #### [facility] ([facility]) [address] [place] [address] VIR CELLAVISION NEUTROPHILS ABSOLUTE COUNT BY MANUAL COUNT 3.3 10*3/uL Normal 1.5-6.6 [facility] Comment on above: Result Comment: This is an appended report. These results have been appended to a previously preliminary verified report. Performed By: #### C BCA #### [facility] ([facility]) [address] [place] [address] VIR CELLAVISION NEUTROPHILS RELATIVE PERCENT BY MANUAL COUNT 48 % Normal [facility] Comment on above: Result Comment: This is an appended report. These results have been appended to a previously preliminary verified report. Performed By: #### C BCA #### [facility] ([facility]) [address] [place] [address] VIR CELLAVISION RBC MORPHOLOGY Normal Normal [facility] Comment on above: Result Comment: This is an appended report. These results have been appended to a previously preliminary verified report. Performed By: #### C BCA #### [facility] ([facility]) [address] [place] [address] VIR Erythrocyte distribution width (RBC) [Ratio] 13.9 % Normal 11.5-15 [facility] Comment on above: Performed By: #### C BCA #### [facility] ([facility]) [address] [place] [address] VIR Hematocrit (Bld) [Volume fraction] 44.7 % Normal 35-47 [facility] Comment on above: Performed By: #### C BCA #### [facility] ([facility]) [address] [place] [address] VIR Hemoglobin (Bld) [Mass/Vol] 14.8 g/dL Normal 11.7-15.5 [facility] Comment on above: Performed By: #### C BCA #### [facility] ([facility]) [address] [place] [address] VIR MCH (RBC) [Entitic mass] 29.2 pg Normal 27-34 [facility] Comment on above: Performed By: #### C BCA #### [facility] ([facility]) [address] [place] [address] VIR MCHC (RBC) [Mass/Vol] 33.2 g/dL Normal 32-36 [facility] Comment on above: Performed By: #### C BCA #### [facility] ([facility]) [address] [place] [address] VIR MCV (RBC) [Entitic vol] 88 fL Normal 80-100 [facility] Comment on above: Performed By: #### C BCA #### [facility] ([facility]) [address] [place] [address] VIR Platelet mean volume (Bld) [Entitic vol] 8.8 fL Normal 7-12 [facility] Comment on above: Performed By: #### C BCA #### [facility] ([facility]) [address] [place] [address] VIR Platelets (Bld) [#/Vol] 198 10*3/uL Normal 150-450 [facility] Comment on above: Performed By: #### C BCA #### [facility] ([facility]) [address] [place] [address] VIR RBC COUNT 5.07 X10E12/L Normal 3.8-5.2 [facility] Comment on above: Performed By: #### C BCA #### [facility] ([facility]) [address] [place] [address] VIR WBC (Bld) [#/Vol] 7.0 10*3/uL Normal 4-11 [facility] Comment on above: Performed By: #### C BCA #### [facility] ([facility]) [address] [place] [address] VIR COMPREHENSIVE METABOLIC PANE Dionicio 09-13-2024 Albumin [Mass/Vol] 3.9 g/dL Normal 3.2-5.3 [facility] Comment on above: Performed By: #### C MP ####[facility] ([facility])[address], [place] [address] VIR ALP [Catalytic activity/Vol] 77 U/L Normal 39-130 [facility] Comment on above: Performed By: #### C MP ####[facility] ([facility])[address], [place] [address] VIR ALT [Catalytic activity/Vol] 22 U/L Normal <=31 [facility] Comment on above: Performed By: #### C MP ####[facility] ([facility])[address], [place] [address] VIR Anion gap [Moles/Vol] 9 mmol/L Normal 5-15 [facility] Comment on above: Performed By: #### C MP ####[facility] ([facility])[address], [place] [address] VIR AST [Catalytic activity/Vol] 28 U/L Normal <=41 [facility] Comment on above: Performed By: #### C MP ####[facility] ([facility])[address], [place] [address] VIR Bilirubin [Mass/Vol] 0.6 mg/dL Normal 0.3-1.2 [facility] Comment on above: Performed By: #### C MP ####[facility] ([facility])[address], [place] [address] VIR Calcium [Mass/Vol] 8.7 mg/dL Normal 8.5-10.5 [facility] Comment on above: Performed By: #### C MP ####[facility] ([facility])[address], [place] [address] VIR Chloride [Moles/Vol] 107 mmol/L Normal 98-109 [facility] Comment on above: Performed By: #### C MP ####[facility] ([facility])[address], [place] [address] VIR CO2 [Moles/Vol] 24 mmol/L Normal 22-32 [facility] Comment on above: Performed By: #### C MP ####[facility] ([facility])[address], [place] [address] VIR Creatinine [Mass/Vol] 1.38 mg/dL High 0.40-1.00 [facility] Comment on above: Result Comment: METH OD TRACEABLE TO IDMS STANDARD Performed By: #### C MP ####[facility] ([facility])[address], [place] [address] VIR GFR/1.73 sq M.predicted among non-blacks MDRD (S/P/Bld) [Vol rate/Area] 39 mL/min/{1.73_m2} Low >=60 [facility] Comment on above: Result Comment: Repo rted eGFR is based on the CKD-EPI 2020 equation that does not use a race coefficient. Performed By: #### C MP ####[facility] ([facility])[address], [place] [address] VIR Glucose [Mass/Vol] 87 mg/dL Normal 65-99 [facility] Comment on above: Performed By: #### C MP ####[facility] ([facility])[address], [place] [address] VIR Potassium [Moles/Vol] 4.8 mmol/L Normal 3.5-5.0 [facility] Comment on above: Performed By: #### C MP ####[facility] ([facility])[address], [place] [address] VIR Protein [Mass/Vol] 6.8 g/dL Normal 6.0-8.0 [facility] Comment on above: Performed By: #### C MP ####[facility] ([facility])[address], [place] [address] VIR Sodium [Moles/Vol] 140 mmol/L Normal 134-146 [facility] Comment on above: Performed By: #### C MP ####[facility] ([facility])[address], [place] [address] VIR Urea nitrogen [Mass/Vol] 23 mg/dL Normal 5-27 [facility] Comment on above: Performed By: #### C MP ####[facility] ([facility])[address], [place] [address] VIR LIPID PROFILEon 09-13-2024 Cholesterol [Mass/Vol] 204 mg/dL High 150-200 [facility] Comment on above: Performed By: #### L IPR #### [facility] ([facility]) [address] [place] [address] VIR Cholesterol in HDL [Mass/Vol] 55 mg/dL Normal >39 [facility] Comment on above: Result Comment: HDL <40 mg/dL - High Risk HDL > or = 40mg/dL- Desirable HDL >60 mg/dL - Negative Risk Performed By: #### L IPR #### [facility] ([facility]) [address] [place] [address] VIR Cholesterol in LDL [Mass/Vol] 120 mg/dL Normal <130 [facility] Comment on above: Result Comment: LDL <100 mg/dL - Desirable LDL >160 mg/dL - High Risk Performed By: #### L IPR #### [facility] ([facility]) [address] [place] [address] VIR CHOLESTEROL:HDL 3.7 Normal 1.0-5.0 [facility] Comment on above: Performed By: #### L IPR #### [facility] ([facility]) [address] [place] [address] VIR Triglyceride [Mass/Vol] 147 mg/dL Normal 27-150 [facility] Comment on above: Performed By: #### L IPR #### [facility] ([facility]) [address] [place] [address] VIR VERY LOW LIPOPROTEIN 29 mg/dL Normal 0-30 [facility] Comment on above: Performed By: #### L IPR #### [facility] ([facility]) [address] [place] [address] VIR TSHon 09-13-2024 TSH 1.59 uIU/mL Normal 0.49-4.67 [facility] Comment on above: Performed By: #### T SH #### [facility] ([facility]) [address] [place] [address] VIR POCT Protime / INRon 09-12- 025 INR Coag (PPP) [Relative time] 1.9 {INR} Abnormal 0.8 - 1.[address] [facility] Interpretation and review of laboratory results Abnormal [facility] POCT Protime / INRon 08-15- 025 INR Coag (PPP) [Relative time] 3.1 {INR} Abnormal 0.8 - 1.[address] [facility] Interpretation and review of laboratory results Abnormal [facility] ECG 12 Leadon 07-25-2024 ECG revealed normal sinus rhythm, right axis deviation, low voltage QRS complex, abnormal ECG. [facility] Work Phone: POCT Protime / INRon 07-18- 025 INR Coag (PPP) [Relative time] 2 {INR} Abnormal 0.8 - 1.2 [facility] Interpretation and review of laboratory results Abnormal [facility] POCT Protime / INRon 06-19-2 025 INR Coag (PPP) [Relative time] 1.4 {INR} Abnormal 0.8 - 1.2 [facility] Interpretation and review of laboratory results Abnormal [facility] POCT Protime / INRon 06-07- 025 INR Coag (PPP) [Relative time] 1.4 {INR} Abnormal 0.8 - 1.2 [facility] Interpretation and review of laboratory results Abnormal [facility] POCT Protime / INRon 05-18- 025 INR Coag (PPP) [Relative time] 1.9 {INR} Abnormal 0.8 - 1.2 [facility] Interpretation and review of laboratory results Abnormal [facility] POCT Protime / INRon 05-09- 025 INR Coag (PPP) [Relative time] 2.5 {INR} Abnormal 0.8 - 1.2 [facility] Interpretation and review of laboratory results Abnormal [facility] POCT Protime / INRon 04-30-2 025 INR Coag (PPP) [Relative time] 4.1 {INR} Abnormal 0.8 - 1.2 [facility] Interpretation and review of laboratory results Abnormal [facility] POCT Protime / INRon 04-16-2 025 INR Coag (PPP) [Relative time] 3.8 {INR} Abnormal 0.8 - 1.2 [facility] Interpretation and review of laboratory results Abnormal [facility] CT BRAIN WO CONTon CT BRAIN WO CONT CT BRAIN WO CONT CT OF THE HEAD WITHOUT CONTRAST INDICATION: Pain. Head trauma, minor (Age >= 65y) COMPARISON: None. TECHNIQUE: CT was obtained of the head without contrast. FINDINGS: INTRACRANIAL: Normal configuration of the ventricles and sulci. Without mass effect or midline shift. Maintained alvarez-white differentiation. No identified intracranial hemorrhage.mal configuration of the ventricles and sulci. without mass effect or midline shift. Maintained alvarez-white differentiation. No identified intracranial hemorrhage.. SOFT TISSUES and ORBITS: Orbits are unremarkable. Soft tissues within normal limits. CALVARIUM: No depressed calvarial fracture or suspicious lesion. SINUSES AND MASTOID AIR CELLS: Well aerated. IMPRESSION: No acute intracranial abnormality. All CT scans at this facility use dose modulation, iterative reconstruction, and/or weight based dosing when appropriate to reduce radiation dose to as low as reasonably achievable. Finalized by Lonnie Lizarraga MD on 04/09/2024 1:18 AM Normal [facility] XR KNEE RT 3 VWSon XR KNEE RT 3 VWS XR KNEE RT 3 VWS XR KNEE RT 3 VWS INDICATION: patella trauma , pain COMPARISON: None FINDINGS: Advanced degenerative changes of the medial and patellofemoral compartments in particular. Small effusion. Diffuse bony demineralization. Enthesopathy of the superior/inferior patella as well as tibial tubercle. Mild anterior soft tissue swelling. No definitive acute fracture or dislocation. IMPRESSION: No definitive acute fracture or dislocation. Advanced degenerative changes with small effusion. Finalized by Lonnie Lizarraga MD on 04/09/2024 1:22 AM Normal [facility] XR SHOULDER RT MIN 2 VWSon 0 04-09-2024 XR SHOULDER RT MIN 2 VWS XR SHOULDER RT MIN 2 VWS XR SHOULDER RT MIN 2 VWS INDICATION: fall , pain COMPARISON: None FINDINGS: No acute fracture or dislocation. 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 No right-sided pneumothorax. IMPRESSION: No acute osseous abnormality. Finalized by Lonnie Lizarraga MD on 04/09/2024 1:19 AM Normal [facility] XR WRIST RT MIN 3 VWSon 03-0 XR WRIST RT MIN 3 VWS XR WRIST RT MIN 3 VWS XR WRIST RT MIN 3 VWS INDICATION: foosh, pain COMPARISON: None FINDINGS: Mildly displaced/angulated fracture of the distal radius with equivocal extension to the articular surface. Nondisplaced fracture at the distalmost ulnar styloid. Diffuse bony demineralization with degenerative changes of the carpal/metacarpal joints. Circumferential soft tissue swelling. IMPRESSION: Acute fractures of the radius and ulnar styloid. Finalized by Lonnie Lizarraga MD on 04/09/2024 1:20 AM Normal [facility] POCT Protime / INRon 025 INR Coag (PPP) [Relative time] 2.7 {INR} Abnormal 0.8 - 1.[address] [facility] Interpretation and review of laboratory results Abnormal [facility] POCT Protime / INRon 025 INR Coag (PPP) [Relative time] 3.4 {INR} Abnormal 0.8 - 1.[address] [facility] Interpretation and review of laboratory results Abnormal [facility] Zoë 02-20-2024 AST [Catalytic activity/Vol] 25 U/L Normal 0-41 [facility] Comment on above: Performed By: #### 1 920-8, BMP #### [facility] ([id number]) [address] [place] [address] BASIC METABOLIC PANLon 02-19 Anion gap [Moles/Vol] 9 mmol/L Normal 5-15 [facility] Comment on above: Performed By: #### 1 920-8, BMP #### [facility] ([id number]) [address] [place] [address] Calcium [Mass/Vol] 9.2 mg/dL Normal 8.5-10.5 [facility] Comment on above: Performed By: #### 1 920-8, BMP #### [facility] ([id number]) [address] [place] [address] Chloride [Moles/Vol] 108 mmol/L Normal 98-109 [facility] Comment on above: Performed By: #### 1 920-8, BMP #### [facility] ([id number]) [address] [place] [address] CO2 [Moles/Vol] 23 mmol/L Normal 22-32 [facility] Comment on above: Performed By: #### 1 920-8, BMP #### [facility] ([id number]) [address] [place] [address] Creatinine [Mass/Vol] 1.35 mg/dL High 0.40-1.00 [facility] Comment on above: Result Comment: METH OD TRACEABLE TO IDMS STANDARD Performed By: #### 1 920-8, BMP #### [facility] ([id number]) [address] [place] [address] GFR/1.73 sq M.predicted among non-blacks MDRD (S/P/Bld) [Vol rate/Area] 40 mL/min/{1.73_m2} Low >59 [facility] Comment on above: Result Comment: Reported eGFR is based on the CKD-EPI 2020 equation that does not use a race coefficient. Performed By: #### 1 920-8, BMP #### [facility] ([id number]) [address] [place] [address] Glucose [Mass/Vol] 84 mg/dL Normal 65-99 [facility] Comment on above: Performed By: #### 1 920-8, BMP #### [facility] ([id number]) [address] [place] [address] Potassium [Moles/Vol] 4.6 mmol/L Normal 3.5-5.0 [facility] Comment on above: Performed By: #### 1 920-8, BMP #### [facility] ([id number]) [address] [place] [address] Sodium [Moles/Vol] 140 mmol/L Normal 134-146 [facility] Comment on above: Performed By: #### 1 920-8, BMP #### [facility] ([id number]) [address] [place] [address] Urea nitrogen [Mass/Vol] 30 mg/dL High 5-27 [facility] Comment on above: Performed By: #### 1 920-8, BMP #### [facility] ([id number]) [address] [place] [address] POCT Protime / INRon 025 INR Coag (PPP) [Relative time] 4.8 {INR} Abnormal 0.8 - 1.[address] [facility] Interpretation and review of laboratory results Abnormal [facility] POCT Protime / INRon 024 INR Coag (PPP) [Relative time] 3.6 {INR} Abnormal 0.8 - 1.2 [facility] Interpretation and review of laboratory results Abnormal [facility] POCT Protime / INRon 024 INR Coag (PPP) [Relative time] 3.7 {INR} Abnormal 0.8 - 1.2 [facility] Interpretation and review of laboratory results Abnormal [facility] POCT Protime / INRon 024 INR Coag (PPP) [Relative time] 2.5 {INR} Abnormal 0.8 - 1.2 [facility] Interpretation and review of laboratory results Abnormal [facility] POCT Protime / INRon 024 INR Coag (PPP) [Relative time] 2.4 {INR} Abnormal 0.8 - 1.2 [facility] Interpretation and review of laboratory results Abnormal [facility] POCT Protime / INRon 024 INR Coag (PPP) [Relative time] 1.6 {INR} Abnormal 0.8 - 1.2 [facility] Interpretation and review of laboratory results Abnormal [facility] TSH Qnon 12-16-2023 TSH 1.44 uIU/mL Normal 0.49-4.67 [facility] Comment on above: Performed By: #### 3 016-3 #### [facility] ([id number]) [address] [place] [address] TRANSTHORACIC ECHO (TTE) COM PLETEon 12-14-2023 TRANSTHORACIC ECHO (TTE) COMPLETE [facility] [address] [place] [address], [address], [place], [place] [address] TRANSTHORACIC ECHOCARDIOGRAM REPORT [facility] Physician: [id number] Yvonne Haas MD, [facility] Study Date: 12/14/2023 Ordering Provider: [id number] YVONNE HAAS MRN/PID: [id number] Fellow: Nurse: Date of /Age: 7 1945 / 78 years Front Office Java Developer: Taty Allen RD, T Gender Assigned at Additional Staff: : Height: 167.64 cm Admit Date: Weight: 94.80 kg Admission Status: BSA / BMI: 2.04 m2 / 33.73 Department Location: [facility] kg/m2 [facility] Blood Pressure: 130 /84 mmHg Study Type: TRANSTHORACIC ECHO (TTE) COMPLETE Diagnosis/ICD: Dilated cardiomyopathy-I42.0 Indication: Paroxysmal Atrial Fibrillation, PVC's, Sick Sinus Syndrome, Mild CAD, HTN, Obesity CPT Codes: Echo Complete w Full [id number] Study Detail: The following Echo studies were performed: 2D, M-Mode, Doppler and color flow. PHYSICIAN INTERPRETATION: Left Ventricle: Left ventricular ejection fraction is moderately decreased, by visual estimate at 35%. There is mild concentric left ventricular hypertrophy. There is global hypokinesis of the left ventricle with minor regional variations. The left ventricular cavity size is normal. There is moderately increased septal and mildly increased posterior left ventricular wall thickness. Spectral Doppler shows a Grade I (impaired relaxation pattern) of left ventricular diastolic filling with normal left atrial filling pressure. Mild concentric left ventricle hypertrophy. Left Atrium: The left atrium is normal in size. Right Ventricle: The right ventricle is normal in size. There is normal right ventricular global systolic function. Right Atrium: The right atrium is normal in size. Aortic Valve: The aortic valve is trileaflet. The aortic valve dimensionless index is 0.42. There is mild aortic valve regurgitation. The peak instantaneous gradient of the aortic valve is 13 mmHg. The mean gradient of the aortic valve is 7 mmHg. Mitral Valve: The mitral valve is mildly thickened. The peak instantaneous gradient of the mitral valve is 6 mmHg. There is mild mitral valve regurgitation. Tricuspid Valve: The tricuspid valve is structurally normal. There is trace tricuspid regurgitation. Pulmonic Valve: The pulmonic valve is structurally normal. There is trace pulmonic valve regurgitation. Pericardium: No pericardial effusion noted. Aorta: The aortic root is normal. Pulmonary Artery: The Doppler estimated pulmonary artery diastolic pressure is 19.8 mmHg. Systemic Veins: The inferior vena cava appears normal in size. In comparison to the previous echocardiogram(s): When compared to study from January 21, 2023, the ejection fraction remains unchanged, there is no aortic stenosis present compared to previous study, the amount of mitral and aortic regurgitation is less. CONCLUSIONS: 1. Left ventricular ejection fraction is moderately decreased, by visual estimate at 35%. 2. There is global hypokinesis of the left ventricle with minor regional variations. 3. Mild concentric left ventricle hypertrophy. 4. There is normal right ventricular global systolic function. 5. Mild aortic valve regurgitation. 6. When compared to study from January 21, 2023, the ejection fraction remains unchanged, there is no aortic stenosis present compared to previous study, the amount of mitral and aortic regurgitation is less. 7. There is moderately increased septal thickness. QUANTITATIVE DATA SUMMARY: 2D MEASUREMENTS: Normal Ranges: Ao Root d: 3.50 cm (2.0-3.7cm) LAs: 3.90 cm (2.7-4.0cm) RVIDd: 3.07 cm (0.9-3.6cm) IVSd: 1.34 cm (0.6-1.1cm) LVPWd: 1.13 cm (0.6-1.1cm) LVIDd: 4.48 cm (3.9-5.9cm) LVIDs: 3.87 cm LV Mass Index: 100.6 g/m2 LV % FS 13.6 % LV SYSTOLIC FUNCTION BY 2D PLANIMETRY (MOD): Normal Ranges: EF-A4C View: 60 % (>=55%) EF-Visual: 35 % LV EF Reported: 35 % LV DIASTOLIC FUNCTION: Normal Ranges: MV Peak E: 1.01 m/s (0.7-1.2 m/s) MV Peak A: 1.18 m/s (0.42-0.7 m/s) E/A Ratio: 0.86 (1.0-2.2) MV e' 0.084 m/s (>8.0) MV lateral e' 0.10 m/s MV medial e' 0.07 m/s E/e' Ratio: 12.05 (<8.0) MITRAL VALVE: Normal Ranges: MV Vmax: 1.27 m/s (<=1.3m/s) MV peak P.5 mmHg (<5mmHg) MV mean P.0 mmHg (<48mmHg) MITRAL INSUFFICIENCY: Normal Ranges: MR Vmax: 273.00 cm/s AORTIC VALVE: Normal Ranges: AoV Vmax: 1.77 m/s (<=1.7m/s) AoV Peak P.5 mmHg (<20mmHg) AoV Mean P.0 mmHg (1.7-11.5mmHg) LVOT Max Kristie: 0.79 m/s (<=1.1m/s) AoV VTI: 35.20 cm (18-25cm) LVOT VTI: 14.70 cm LVOT Diameter: 2.30 cm (1.8-2.4cm) AoV Area, VTI: 1.74 cm2 (2.5-5.5cm2) AoV Area,Vmax: 1.85 cm2 (2.5-4.5cm2) AoV Dimensionless Index: 0.42 AORTIC INSUFFICIENCY: AI Vmax: 4.07 m/s AI Half-time: 538 msec AI Decel Rate: 186.00 cm/s2 PULMONIC VALVE: Normal Ranges: PV Max Kristie: 0.6 m/s (0.6-0.9m/s) PV Ma (more content not included)... [facility] US Heart Transthoracicon Aortic Valve Area by Continuity of Peak Velocity 1.85 cm2 [facility] Work Phone: Aortic Valve Area by Continuity of VTI 1.74 cm2 [facility] Work Phone: AV mn grad 7 mmHg [facility] Work Phone: [phone] AV pk grad 13 mmHg [facility] Work Phone: AV pk kristie 1.77 m/s [facility] Work Phone: [phone] LV A4C EF 60.3 [facility] Work Phone: [phone] LV EF 35 % [facility] Work Phone: [phone] LVIDd 4.48 cm [facility] Work Phone: [phone] LVOT diam 2.3 cm [facility] Work Phone: [phone] MV avg E/e' ratio 10.5 [facility] Work Phone: [phone] MV E/A ratio 0.86 [facility] Work Phone: [address], [address] [place] [address] TRANSTHORACIC ECHOCARDIOGRAM REPORT Patient Name: [facility] Reading Physician: [id number] Haas MD, [facility] Study Date: 12/14/2023 Ordering Provider: Vinod HAAS MRN/PID: [id number] Fellow: Nurse: Date of /Age: 7 1945 / 78 years Front Office Java Developer: Taty Allen [facility], T Gender Assigned at F Additional Staff: : Height: 167.64 cm Admit Date: Weight: 94.80 kg Admission Status: BSA / BMI: 2.04 m2 / 33.73 Department Location: [facility] kg/m2 [facility] Blood Pressure: 130 /84 mmHg Study Type: TRANSTHORACIC ECHO (TTE) COMPLETE Diagnosis/ICD: Dilated cardiomyopathy-I42.0 Indication: Paroxysmal Atrial Fibrillation, PVC's, Sick Sinus Syndrome, Mild CAD, HTN, Obesity CPT Codes: Echo Complete w Full Doppler-[id number] Study Detail: The following Echo studies were performed: 2D, M-Mode, Doppler and color flow. PHYSICIAN INTERPRETATION: Left Ventricle: Left ventricular ejection fraction is moderately decreased, by visual estimate at 35%. There is mild concentric left ventricular hypertrophy. There is global hypokinesis of the left ventricle with minor regional variations. The left ventricular cavity size is normal. There is moderately increased septal and mildly increased posterior left ventricular wall thickness. Spectral Doppler shows a Grade I (impaired relaxation pattern) of left ventricular diastolic filling with normal left atrial filling pressure. Mild concentric left ventricle hypertrophy. Left Atrium: The left atrium is normal in size. Right Ventricle: The right ventricle is normal in size. There is normal right ventricular global systolic function. Right Atrium: The right atrium is normal in size. Aortic Valve: The aortic valve is trileaflet. The aortic valve dimensionless index is 0.42. There is mild aortic valve regurgitation. The peak instantaneous gradient of the aortic valve is 13 mmHg. The mean gradient of the aortic valve is 7 mmHg. Mitral Valve: The mitral valve is mildly thickened. The peak instantaneous gradient of the mitral valve is 6 mmHg. There is mild mitral valve regurgitation. Tricuspid Valve: The tricuspid valve is structurally normal. There is trace tricuspid regurgitation. Pulmonic Valve: The pulmonic valve is structurally normal. There is trace pulmonic valve regurgitation. Pericardium: No pericardial effusion noted. Aorta: The aortic root is normal. Pulmonary Artery: The Doppler estimated pulmonary artery diastolic pressure is 19.8 mmHg. Systemic Veins: The inferior vena cava appears normal in size. In comparison to the previous echocardiogram(s): When compared to study from January 21, 2023, the ejection fraction remains unchanged, there is no aortic stenosis present compared to previous study, the amount of mitral and aortic regurgitation is less. CONCLUSIONS: 1. Left ventricular ejection fraction is moderately decreased, by visual estimate at 35%. 2. There is global hypokinesis of the left ventricle with minor regional variations. 3. Mild concentric left ventricle hypertrophy. 4. There is normal right ventricular global systolic function. 5. Mild aortic valve regurgitation. 6. When compared to study from January 21, 2023, the ejection fraction remains unchanged, there is no aortic stenosis present compared to previous study, the amount of mitral and aortic regurgitation is less. 7. There is moderately increased septal thickness. QUANTITATIVE DATA SUMMARY: 2D MEASUREMENTS: Normal Ranges: Ao Root d: 3.50 cm (2.0-3.7cm) LAs: 3.90 cm (2.7-4.0cm) RVIDd: 3.07 cm (0.9-3.6cm) IVSd: 1.34 cm (0.6-1.1cm) LVPWd: 1.13 cm (0.6-1.1cm) LVIDd: 4.48 cm (3.9-5.9cm) LVIDs: 3.87 cm LV Mass Index: 100.6 g/m2 LV % FS 13.6 % LV SYSTOLIC FUNCTION BY 2D PLANIMETRY (MOD): Normal Ranges: EF-A4C View: 60 % (>=55%) EF-Visual: 35 % LV EF Reported: 35 % LV DIASTOLIC FUNCTION: Normal Ranges: MV Peak E: 1.01 m/s (0.7-1.2 m/s) MV Peak A: 1.18 m/s (0.42-0.7 m/s) E/A Ratio: 0.86 (1.0-2.2) MV e' 0.084 m/s (>8.0) MV lateral e' 0.10 m/s MV medial e' 0 (more content not included)... Yvonne Mak M D - 12/14/[address], [address] [place] [address] TRANSTHORACIC ECHOCARDIOGRAM REPORT Patient Name: [facility] Reading Physician: [id number] Haas MD, [facility] Study Date: 12/14/2023 Ordering Provider: [id number] YVONNE HAAS MRN/PID: [id number] Fellow: Nurse: Date of /Age: 7 1945 / 78 years Front Office Java Developer: Taty Allen RDCS, RVT Gender Assigned at F Additional Staff: : Height: 167.64 cm Admit Date: Weight: 94.80 kg Admission Status: BSA / BMI: 2.04 m2 / 33.73 Department Location: [facility] [address] Blood Pressure: 130 /84 mmHg Study Type: TRANSTHORACIC ECHO (TTE) COMPLETE Diagnosis/ICD: Dilated cardiomyopathy-I42.0 Indication: Paroxysmal Atrial Fibrillation, PVC's, Sick Sinus Syndrome, Mild CAD, HTN, Obesity CPT Codes: Echo Complete w Full Doppler-[id number] Study Detail: The following Echo studies were performed: 2D, M-Mode, Doppler and color flow. PHYSICIAN INTERPRETATION: Left Ventricle: Left ventricular ejection fraction is moderately decreased, by visual estimate at 35%. There is mild concentric left ventricular hypertrophy. There is global hypokinesis of the left ventricle with minor regional variations. The left ventricular cavity size is normal. There is moderately increased septal and mildly increased posterior left ventricular wall thickness. Spectral Doppler shows a Grade I (impaired relaxation pattern) of left ventricular diastolic filling with normal left atrial filling pressure. Mild concentric left ventricle hypertrophy. Left Atrium: The left atrium is normal in size. Right Ventricle: The right ventricle is normal in size. There is normal right ventricular global systolic function. Right Atrium: The right atrium is normal in size. Aortic Valve: The aortic valve is trileaflet. The aortic valve dimensionless index is 0.42. There is mild aortic valve regurgitation. The peak instantaneous gradient of the aortic valve is 13 mmHg. The mean gradient of the aortic valve is 7 mmHg. Mitral Valve: The mitral valve is mildly thickened. The peak instantaneous gradient of the mitral valve is 6 mmHg. There is mild mitral valve regurgitation. Tricuspid Valve: The tricuspid valve is structurally normal. There is trace tricuspid regurgitation. Pulmonic Valve: The pulmonic valve is structurally normal. There is trace pulmonic valve regurgitation. Pericardium: No pericardial effusion noted. Aorta: The aortic root is normal. Pulmonary Artery: The Doppler estimated pulmonary artery diastolic pressure is 19.8 mmHg. Systemic Veins: The inferior vena cava appears normal in size. In comparison to the previous echocardiogram(s): When compared to study from January 21, 2023, the ejection fraction remains unchanged, there is no aortic stenosis present compared to previous study, the amount of mitral and aortic regurgitation is less. CONCLUSIONS: 1. Left ventricular ejection fraction is moderately decreased, by visual estimate at 35%. 2. There is global hypokinesis of the left ventricle with minor regional variations. 3. Mild concentric left ventricle hypertrophy. 4. There is normal right ventricular global systolic function. 5. Mild aortic valve regurgitation. 6. When compared to study from January 21, 2023, the ejection fraction remains unchanged, there is no aortic stenosis present compared to previous study, the amount of mitral and aortic regurgitation is less. 7. There is moderately increased septal thickness. QUANTITATIVE DATA SUMMARY: 2D MEASUREMENTS: Normal Ranges: Ao Root d: 3.50 cm (2.0-3.7cm) LAs: 3.90 cm (2.7-4.0cm) RVIDd: 3.07 cm (0.9-3.6cm) IVSd: 1.34 cm (0.6-1.1cm) LVPWd: 1.13 cm (0.6-1.1cm) LVIDd: 4.48 cm (3.9-5.9cm) LVIDs: 3.87 cm LV Mass Index: 100.6 g/m2 LV % FS 13.6 % LV SYSTOLIC FUNCTION BY 2D PLANIMETRY (MOD): Normal Ranges: EF-A4C View: 60 % (>=55%) EF-Visual: 35 % LV EF Reported: 35 % LV DIASTOLIC FUNCTION: Normal Ranges: MV Peak E: 1.01 m/s (0.7-1.2 m/s) MV Peak A: 1.18 m/s (0.42-0.7 m/s) E/A Ratio: 0.86 (1.0-2.2) MV e' 0.084 m/s (>8.0) MV lateral e' 0.10 m/s MV medial e' 0.07 m/s E/e' Ratio: 12.05 (<8.0) MITRAL VALVE: Normal Ranges: MV Vmax: 1.27 m/s (<=1.3m/s) MV peak P.5 mmHg (<5mmHg) MV mean P.0 mmHg (<48mmHg) MITRAL INSUFFICIENCY: Normal Ranges: MR Vmax: 273.00 cm/s AORTIC VALVE: Normal Ranges: AoV Vmax: 1.77 m/s (<=1.7m/s) AoV Peak P.5 mmHg (<20mmHg) AoV Mean P.0 mmHg (1.7-11.5mmHg) LVOT Max Kristie: 0.79 m/s (<=1.1m/s) AoV VTI: 35.20 cm (18-25cm) LVOT VTI: 14.70 cm LVOT Diameter: 2.30 cm (1.8-2.4cm) AoV Area, VTI: 1.74 cm2 (2.5-5.5cm2) AoV Area,Vmax: 1.85 cm2 (2.5-4.5cm2) AoV Dimensionless Index: 0.42 AORTIC INSUFFICIENCY: AI Vmax: 4.07 m/s AI Half-time: 538 (more content not included)... [facility] Work Phone: [facility] Work Phone: ECG 12 Leadon 12-13-2023 ECG revealed normal sinus rhythm with first-degree AV block, low voltage QRS complex, abnormal ECG CPACS [facility] Work Phone: POCT Protime / INRon 024 INR Coag (PPP) [Relative time] 1.3 {INR} Abnormal 0.8 - 1.2 [facility] Interpretation and review of laboratory results Abnormal [facility] Automated basophil %Ordered By: Tatiana Galvez on 12-01-2023 Basophils/100 WBC (Bld) 1.4 % Normal . [facility] Comment on above: Performed By: #### C BC, BNP, HS TROP, PT, BMP #### [facility] [address] Automated basophil countOrde red By: Tatiana Galvez on 12-01-2023 Basophils (Bld) [#/Vol] 0.1 10*3/uL Normal 0.0-0.2 [facility] Comment on above: Result Comment: PERF ORMED BY: [place] [address] PATHOLOGIST [employer] SELECTOR ROWENA LIPSCOMB M.D. Performed By: #### C BC, BNP, HS TROP, PT, BMP #### [facility] [address] Automated blood monocyte cou ntOrdered By: Tatiana Galvez on 12-01-2023 Monocytes (Bld) [#/Vol] 0.5 10*3/uL Normal 0.0-0.8 [facility] Comment on above: Performed By: #### C BC, BNP, HS TROP, PT, BMP #### [facility] [address] [place] [address] Automated eosinophil %Ordere d By: Tatiana Gaytanhardik on 12-01-2023 Eosinophils/100 WBC (Bld) 3.5 % Normal . [facility] Comment on above: Performed By: #### C BC, BNP, HS TROP, PT, BMP #### [address] Automated eosinophil countOr dered By: Tatiana Gaytanhardik on 12-01-2023 Eosinophils (Bld) [#/Vol] 0.3 10*3/uL Normal 0.0-0.45 [facility] Comment on above: Performed By: #### C BC, BNP, HS TROP, PT, BMP #### [address] Automated monocyte %Ordered By: Tatiana Lukashardik on 12-01-2023 Monocytes/100 WBC (Bld) 6.3 % Normal . [facility] Comment on above: Performed By: #### C BC, BNP, HS TROP, PT, BMP #### [address] Automated neutrophil %Ordere d By: Tatiana Gaytanhardik on 12-01-2023 Neutrophils/100 WBC (Bld) 60.3 % Normal . [facility] Comment on above: Performed By: #### C BC, BNP, HS TROP, PT, BMP #### [address] BNP ser/plasOrdered By: Zachary Galvez on 12-01-2023 Natriuretic peptide B (Bld) [Mass/Vol] 216.0 pg/mL High 5-100 [facility] Comment on above: Result Comment: PERF ORMED BY: [place] [address] PATHOLOGIST [employer] SELECTOR ROWENA LIPSCOMB M.D. Performed By: #### C BC, BNP, HS TROP, PT, BMP #### [address] Basic Metabolic Panelon 10-2 Creatinine Clr Calc Pharmacy 37.72 Normal [facility] Comment on above: Result Comment: PERF ORMED BY: [place] [address] PATHOLOGIST [employer]OR ROWENA LIPSCOMB M.D. Performed By: #### C BC, BNP, HS TROP, PT, BMP #### [address] GFR/1.73 sq M.predicted MDRD (S/P/Bld) [Vol rate/Area] 37.858 mL/min/{1.73_m2} Normal [facility] Comment on above: Performed By: #### C BC, BNP, HS TROP, PT, BMP #### [address] angio chest PE protocolon 12-01-2023 CT angio chest PE protocol [facility] [place] [address] [place] [address] CT Scan Report Signed Patient: Eduardo Howard MR#: [id number] : 1945 Acct:[id number] Age/Sex: 78 / F ADM Date: 12/01/23 Loc: ER Room: Type: [facility] ER Attending Dr: Copies to: DO Sergio Key DO, DARLENE Ordering Provider: Sergio Root DO, RES Date of Service: 12/01/23 CT/CT angio chest PE protocol: SOB, hx of PE CT PULMONARY ANGIOGRAM WITH CONTRAST CLINICAL HISTORY: Shortness of breath on exertion and generalized weakness COMPARISON: 08/28/2013 TECHNIQUE: Spiral images were obtained through the chest following intravenous administration of 75 mL of Isovue-370. Images were reviewed using both narrow and wide window settings. Sagittal, coronal and 3 D volume-rendered reconstructions were performed and reviewed. This CT exam was performed using one or more following dose reduction techniques: Automated exposure control, adjustment of the mA and/or kV according to patient size, or use of iterative reconstruction technique. FINDINGS: The heart is enlarged. There is no pericardial effusion. Ascending aorta is ectatic. No dissection is seen. There is adequate opacification of the pulmonary arteries. No emboli are identified. No pathologic lymphadenopathy is seen. Dextroscoliotic curvature and endplate spurring are seen at the spine. There is continued subtle concavity at superior endplates of T10-11. Minor scarring or atelectasis is present at both lungs. There is no consolidation, effusion or discrete soft tissue nodules. No pneumothorax is seen. Limited cuts through the upper abdomen show left nephrolithiasis. CT/CT angio chest PE protocol IMPRESSION: NO CT EVIDENCE OF PULMONARY EMBOLISM. MILD CARDIOMEGALY AND AORTIC ECTASIA. MINOR SCARRING OR ATELECTASIS. Impression dictated by: Stephani Merchant M.D.12/01/2023 5:21 PM Dictation Location: [place] [address] Transcribed By: [facility] 12/01/231720 Dictated By: Stephani Merchant MD 12/01/231713 Signed By: 12/01/231720 Normal [facility] Calcium [Mass/volume] in Ser um or PlasmaOrdered By: Tatiana Galvez on 12-01-2023 Calcium [Mass/Vol] 8.9 mg/dL Normal 8.6-10.3 [facility] Comment on above: Performed By: #### C BC, BNP, HS TROP, PT, BMP #### [facility] [address] [place] [address] Carbon dioxide, total [Moles /volume] in Serum or PlasmaOrdered By: Tatiana Galvez on 12-01-2023 CO2 [Moles/Vol] 22.3 mmol/L Normal 21.0-31.0 [facility] Comment on above: Performed By: #### C BC, BNP, HS TROP, PT, BMP #### [facility] [address] [place] [address] [place] Chloride [Moles/volume] in S josesito or PlasmaOrdered By: Tatiana Galvez on 12-01-2023 Chloride [Moles/Vol] 107 mmol/L Normal 98-107 [facility] Comment on above: Performed By: #### C BC, BNP, HS TROP, PT, BMP #### [facility] [address] [place] [address] [place] Complete Blood Count Auto Di ffon 12-01-2023 Mean Corpuscular HGB Conc 34.1 g/dL Normal 32.0-35.0 [facility] Comment on above: Performed By: #### C BC, BNP, HS TROP, PT, BMP #### [address] Monocytes/100 WBC (Bld) 22.41 % High 0.00-20.00 [facility] Comment on above: Result Comment: For adults in ED, MDW > 20.0 may be associated with a higher risk of sepsis during the first 12 hrs of hospital admission Performed By: #### C BC, BNP, HS TROP, PT, BMP #### [facility] [address] NRBC% 0.1 /100{WBC} Normal 0-0.5 [facility] Comment on above: Performed By: #### C BC, BNP, HS TROP, PT, BMP #### [address] Creatinine [Mass/volume] in Serum or PlasmaOrdered By: Tatiana Galvez on 12-01-2023 Creatinine [Mass/Vol] 1.42 mg/dL High 0.60-1.20 [facility] Comment on above: Performed By: #### C BC, BNP, HS TROP, PT, BMP #### [place] [address] [place] ECG 12 lead ECGon 12-01-2023 ECG 12 lead ECG [facility] [place] [place] [address] Electrocardiograph Report Signed Patient: Eduardo Howard MR#: [id number] : 1945 Acct:[id number] Age/Sex: 78 / F ADM Date: 12/01/23 Loc: ER Room: Type: [facility] ER Attending Dr: Ordering Provider: Tami Cardoza DO Date of Service: 12/01/23 ECG/ECG 12 lead ECG: Shortness of Breath/Dyspnea Copies to: Test Reason : Blood Pressure : */* mmHG Vent. Rate : 66 BPM Atrial Rate : 66 BPM P-R Int : 192 ms QRS Dur : 94 ms QT Int : 448 ms P-R-T Axes : 53 -24 72 degrees QTcB Int : 469 ms Normal sinus rhythm Possible Anterior infarct (cited on or before 01-Dec-2023) Abnormal ECG When compared with ECG of 01-Dec-2023 13:06, (Unconfirmed) No significant change was found Confirmed by TAMI CARDOZA DO ([id number]) on 12/02/2023 12:57:39 AM Referred By: Electronically Signed By: TAMI CARDOZA DO Transcribed By: MUS Signed By Tami Cardoza DO 12/01 Normal [facility] ECG 12 lead ECG [facility] [place] [address] [place] [address] Electrocardiograph Report Signed Patient: Eduardo Howard MR#: [id number] : 1945 Acct:[id number] Age/Sex: 78 / F ADM Date: 12/01/23 Loc: ER Room: Type: [facility] ER Attending Dr: Ordering Provider: Tatiana Galvez APRN Date of Service: 12/01/23 ECG/ECG 12 lead ECG: Shortness of Breath/Dyspnea Copies to: Test Reason : Blood Pressure : 156/73 mmHG Vent. Rate : 66 BPM Atrial Rate : 66 BPM P-R Int : 192 ms QRS Dur : 94 ms QT Int : 436 ms P-R-T Axes : 69 -20 70 degrees QTcB Int : 457 ms Normal sinus rhythm Possible Anterior infarct , age undetermined Abnormal ECG When compared with ECG of 31-Aug-2013 06:58, QRS duration has decreased Borderline criteria for Anterior infarct are now present Confirmed by TAMI CARDOZA DO ([id number]) on 12/02/2023 12:57:39 AM Referred By: Electronically Signed By: TAMI CARDOZA DO Transcribed By: MUS Signed By Tami Cardoza DO 12/01 Normal [facility] Erythrocyte distribution wid th [Ratio] by Automated countOrdered By: Tatiana Galvez on 12-01-2023 Erythrocyte distribution width (RBC) [Ratio] 13.8 % Normal 11.9-15.3 [facility] Comment on above: Performed By: #### C BC, BNP, HS TROP, PT, BMP #### [facility] [address] [place] [address] [place] Erythrocytes [#/volume] in B lood by Automated countOrdered By: Tatiana Galvez on 12-01-2023 RBC (Bld) [#/Vol] 4.90 10*6/uL Normal 3.60-5.00 [place] Comment on above: Performed By: #### C BC, BNP, HS TROP, PT, BMP #### [facility] [address] [place] [address] [place] Glucose [Mass/volume] in Ser um or PlasmaOrdered By: Tatiana Galvez on 12-01-2023 Glucose [Mass/Vol] 89 mg/dL Normal 70-100 [facility] Comment on above: ADA recommended refe rence rangeRandom Glucose Reference Range is dependent on time and content of last meal. Glucose of more than 200 mg/dL in a nonstressed, ambulatory subject supports the diagnosis of Diabetes Mellitus. Result Comment: [place] om Glucose Reference Range is dependent on time and content of last meal. Glucose of more than 200 mg/dL in a nonstressed, ambulatory subject supports the diagnosis of Diabetes Mellitus. ADA recommended reference range Performed By: #### C BC, BNP, HS TROP, PT, BMP #### [place] [address] [place] Hematocrit [Volume Fraction] of Blood by Automated countOrdered By: Tatiana Galvez on 12-01-2023 Hematocrit (Bld) [Volume fraction] 42.8 % Normal 34.0-46.4 [facility] Comment on above: Performed By: #### C BC, BNP, HS TROP, PT, BMP #### [facility] [address] [place] [address] [place] Hemoglobin [Mass/volume] in BloodOrdered By: Tatiana Galvez on 12-01-2023 Hemoglobin (Bld) [Mass/Vol] 14.6 g/dL Normal 11.8-15.4 [facility] Comment on above: Performed By: #### C BC, BNP, HS TROP, PT, BMP #### [address] INR in Platelet poor plasma by Coagulation assayOrdered By: Tatiana Galvez on 12-01-2023 INR Coag (PPP) [Relative time] 1.6 {INR} Normal [facility] Comment on above: INR Therapeutic Rang e A) Pre- and Peroperative OAT started two weeks before surgery. NOT HIP SURGERY: 1.5 - 2.5 HIP SURGERY: 2 - 3B) Primary and secondary prevention of venous THROMBOSIS: 2 - 3C) Active venous thrombosis, pulmonary embolismand prevention of recurrent venous thrombosis: 2 - 3D) Prevention of arterial thromboembolismincluding patients with mechanical heart valves: 3 - 4.5 Result Comment: INR Therapeutic Range A) Pre- and Peroperative OAT started two weeks before surgery. NOT HIP SURGERY: 1.5 - 2.5 HIP SURGERY: 2 - 3 B) Primary and secondary prevention of venous THROMBOSIS: 2 - 3 C) Active venous thrombosis, pulmonary embolism and prevention of recurrent venous thrombosis: 2 - 3 D) Prevention of arterial thromboembolism including patients with mechanical heart valves: 3 - 4.5 PERFORMED BY: [place] [address] PATHOLOGIST [employer] SELECTOR ROWENA LIPSCOMB M.D. Performed By: #### C BC, BNP, HS TROP, PT, BMP #### [address] Leukocytes [#/volume] correc henry for nucleated erythrocytes in Blood by Automated counOrdered By: Tatiana Galvez on 12-01-2023 WBC corrected for nucl RBC Auto (Bld) [#/Vol] 7.5 10*3/uL 3.8-11.6 [facility] Leukocytes [#/volume] in Blo od by Automated countOrdered By: Tatiana Galvez on 12-01-2023 WBC (Bld) [#/Vol] 7.5 10*3/uL Normal 3.8-11.6 [facility] Comment on above: Performed By: #### C BC, BNP, HS TROP, PT, BMP #### [address] Lymphocytes [#/volume] in Bl ood by Automated countOrdered By: Tatiana Galvez on 12-01-2023 Lymphocytes (Bld) [#/Vol] 2.1 10*3/uL Normal 1.00-4.8 [facility] Comment on above: Performed By: #### C BC, BNP, HS TROP, PT, BMP #### [facility] [address] Lymphocytes/100 leukocytes i n Blood by Automated countOrdered By: Tatiana Glavez on 12-01-2023 Lymphocytes/100 WBC (Bld) 28.5 % Normal . [facility] Comment on above: Performed By: #### C BC, BNP, HS TROP, PT, BMP #### [facility] [address] [place] [address] MCH [Entitic mass] by Automa henry countOrdered By: Tatiana Galvez on 12-01-2023 MCH (RBC) [Entitic mass] 29.7 pg Normal 24.7-34.3 [facility] Comment on above: Performed By: #### C BC, BNP, HS TROP, PT, BMP #### [address] MCHC Auto (RBC) [Mass/Vol]Or dered By: Tatiana Galvez on 12-01-2023 MCHC (RBC) [Mass/Vol] 34.1 g/dL 32.0-35.0 [facility] MCV [Entitic volume] by Auto mated countOrdered By: Tatiana Galvez on 12-01-2023 MCV (RBC) [Entitic vol] 87.2 fL Normal 80-100 [facility] Comment on above: Performed By: #### C BC, BNP, HS TROP, PT, BMP #### [facility] [address] [place] [address] Monocyte distribution width [Entitic volume] in Blood by AutomatedOrdered By: Tatiana Galvez on 12-01-2023 Monocyte distribution width Auto (Bld) [Entitic vol] 22.41 % High 0.00-20.00 [facility] Comment on above: For adults in ED, MD W > 20.0 may be associated with a higher risk of sepsis during the first 12 hrs of hospital admission Neutrophils [#/volume] in Bl ood by Automated countOrdered By: Tatiana Galvez on 12-01-2023 Neutrophils (Bld) [#/Vol] 4.5 10*3/uL Normal 1.8-7.7 [facility] Comment on above: Performed By: #### C BC, BNP, HS TROP, PT, BMP #### [facility] [address] No Panel InformationOrdered By: Tatiana Galvez on 12-01-2023 Estimated GFR (CKD-EPI) 37.858 mL/Min [facility] Creatinine Clearance (Chem 37.72 [facility] Nucleated erythrocytes [Pres ence] in Blood by Automated countOrdered By: Tatiana Galvez on 12-01-2023 Nucleated RBC Auto Ql (Bld) 0.1 /100{WBC} 0-0.5 [facility] Platelet mean volume [Entiti c volume] in Blood by Automated countOrdered By: Tatiana Galvez on 12-01-2023 Platelet mean volume (Bld) [Entitic vol] 8.5 fL Normal 6.3-10.7 [facility] Comment on above: Performed By: #### C BC, BNP, HS TROP, PT, BMP #### [facility] [address] [place] [address] Platelets [#/volume] in Bloo d by Automated countOrdered By: Tatiana Galvez on 12-01-2023 Platelets (Bld) [#/Vol] 185 10*3/uL Normal 150-450 [facility] Comment on above: Performed By: #### C BC, BNP, HS TROP, PT, BMP #### [facility] [address] [place] [address] [place] Potassium [Moles/volume] in Serum or PlasmaOrdered By: Tatiana Galvez on 12-01-2023 Potassium [Moles/Vol] 4.8 mmol/L Normal 3.5-5.1 [facility] Comment on above: Performed By: #### C BC, BNP, HS TROP, PT, BMP #### [facility] [address] Prothrombin time (PT)Ordered By: Tatiana Gaytanhardik on 12-01-2023 PT Coag (PPP) [Time] 18.3 s High 9.0-12.9 [facility] Comment on above: A hematocrit value g reater than 55% may lead to inaccurate results in coagulation testing. Patients having hematocrit values >55% require a special collection tube for coagulation studies. Please contact the laboratory at [phone] for redraw instructions. Result Comment: A matocrit value greater than 55% may lead to inaccurate results in coagulation testing. Patients having hematocrit values >55% require a special collection tube for coagulation studies. Please contact the laboratory at [phone] for redraw instructions. Performed By: #### C BC, BNP, HS TROP, PT, BMP #### [address] Serum or plasma anion gap de terminationOrdered By: Tatiana Galvez on 12-01-2023 Anion gap [Moles/Vol] 13.5 mmol/L Normal 6.0-15.0 [facility] Comment on above: Performed By: #### C BC, BNP, HS TROP, PT, BMP #### [address] Sodium [Moles/volume] in Ser um or PlasmaOrdered By: Tatiana Galvez on 12-01-2023 Sodium [Moles/Vol] 138 mmol/L Normal 136-145 [facility] Comment on above: Performed By: #### C BC, BNP, HS TROP, PT, BMP #### [address] Troponin I High Sensitivityo n 12-01-2023 Troponin I High Sensitivity 7.2 pg/mL Normal 0.0-15.0 [facility] Comment on above: Result Comment: PERF ORMED BY: [place] [address] PATHOLOGIST [employer] SELECTOR ROWENA LIPSCOMB M.D. Performed By: #### H S TROP ####[facility] Troponin I High Sensitivity 7.7 pg/mL Normal 0.0-15.0 [facility] Comment on above: Result Comment: PERF ORMED BY: [place] [address] PATHOLOGIST [employer] SELECTOR ROWENA LIPSCOMB M.D. Performed By: #### C BC, BNP, HS TROP, PT, BMP #### [facility] [address] [place] [address] Troponin I.cardiac [Mass/vol ume] in Serum or Plasma by Detection limit <= 0.01 ng/Ordered By: Melia Reynaga on 12-01-2023 Troponin I.cardiac DL <= 0.01 ng/mL [Mass/Vol] 7.2 pg/mL 0.0-15.0 [facility] Urea nitrogen [Mass/volume] in Serum or PlasmaOrdered By: Tatiana Galvez on 12-01-2023 Urea nitrogen [Mass/Vol] 26 mg/dL High 08-31 [facility] Comment on above: Performed By: #### C BC, BNP, HS TROP, PT, BMP #### [facility] [address] [place] [address] XR chest 2V*on 12-01-2023 XR chest 2V* [facility] Main [place] [address] [place] [address] XRay Report Signed Patient: Eduardo Howard MR#: [id number] : 1945 Acct:[id number] Age/Sex: 78 / F ADM Date: 12/01/23 Loc: ER Room: Type: PRE ER Attending Dr: Copies to: Tatiana Galvez APRN TEMP, PROVIDER Ordering Provider: Tatiana Galvez APRN Date of Service: 12/01/23 XR/XR chest 2V*: Shortness of Breath/Dyspnea Plain film chest 2 view HISTORY: Shortness of breath. Dyspnea. COMPARISON: 03/25/2023 FINDINGS: SUPPORT DEVICES: None POSTSURGICAL CHANGES: None HEART: Within normal limits PULMONARY ALIREZA: Within normal limits MEDIASTINUM: Unremarkable LUNGS AND PLEURA: No acute lung process, pleural effusion or pneumothorax identified. BONY STRUCTURES: Intact ADDITIONAL FINDINGS None XR/XR chest 2V* IMPRESSION: No acute process. Impression dictated by: Andre Álvarez M.D.12/01/2023 2:08 PM Dictation Location: [place] [address] Transcribed By: [facility] 12/01/23 140 Dictated By: Andre Álvarez DO 12/01/23 1407 Signed By: 12/01/23 140 Normal [facility] POCT Protime / INRon 11-29-2 024 INR Coag (PPP) [Relative time] 1.4 {INR} Abnormal 0.8 - 1.2 [facility] Interpretation and review of laboratory results Abnormal [facility] POCT Protime / INRon 11-17-2 024 INR Coag (PPP) [Relative time] 1.6 {INR} Abnormal 0.8 - 1.2 [facility] Interpretation and review of laboratory results Abnormal [facility] POCT Protime / INRon 11-10-2 024 INR Coag (PPP) [Relative time] 2.3 {INR} Abnormal 0.8 - 1.2 [facility] Interpretation and review of laboratory results Abnormal [facility] POCT Protime / INRon 11-07-2 024 INR Coag (PPP) [Relative time] 3.1 {INR} Abnormal 0.8 - 1.2 [facility] Interpretation and review of laboratory results Abnormal [facility] POCT Protime / INRon 11-03-2 024 INR Coag (PPP) [Relative time] 4.7 {INR} Abnormal 0.8 - 1.2 [facility] Interpretation and review of laboratory results Abnormal [facility] POCT Protime / INRon 10-30-2 024 INR Coag (PPP) [Relative time] 4.1 {INR} Abnormal 0.8 - 1.2 [facility] Interpretation and review of laboratory results Abnormal [facility] POCT Protime / INRon 10-27-2 024 INR Coag (PPP) [Relative time] 1.4 {INR} Abnormal 0.8 - 1.[address] [facility] Interpretation and review of laboratory results Abnormal [facility] Aspartate aminotransferase [ Enzymatic activity/volume] in Serum or PlasmaOrdered By: Jose Martin Jones on 03-25-2023 AST [Catalytic activity/Vol] 21 U/L Normal 13-39 [facility] Comment on above: Performed By: #### T SH3, AST, BMP ####[place] [id number] [facility] Basic Metabolic Panelon 03-10 GFR/1.73 sq M.predicted MDRD (S/P/Bld) [Vol rate/Area] 38.094 mL/min/{1.73_m2} Normal [facility] Comment on above: Performed By: #### T SH3, AST, BMP ####[place] [id number] [facility] Calcium [Mass/volume] in Ser um or PlasmaOrdered By: Jose Martin Jones on 03-25-2023 Calcium [Mass/Vol] 9.2 mg/dL Normal 8.6-10.3 [facility] Comment on above: Performed By: #### T SH3, AST, BMP ####[place] [id number] [facility] Carbon dioxide, total [Moles /volume] in Serum or PlasmaOrdered By: Jose Martin Jones on 03-25-2023 CO2 [Moles/Vol] 27.7 mmol/L Normal 21.0-31.0 [facility] Comment on above: Performed By: #### T SH3, AST, BMP ####[place] [id number] [place] Chloride [Moles/volume] in S josesito or PlasmaOrdered By: Jose Martin Jones on 03-25-2023 Chloride [Moles/Vol] 108 mmol/L High 98-107 [facility] Comment on above: Performed By: #### T SH3, AST, BMP ####[place] [id number] [facility] Creatinine [Mass/volume] in Serum or PlasmaOrdered By: Jose Martin Jones on 03-25-2023 Creatinine [Mass/Vol] 1.42 mg/dL High 0.60-1.20 [facility] Comment on above: Performed By: #### T MALIK CARDOZA BMP ####[facility] Glucose [Mass/volume] in Ser um or PlasmaOrdered By: Jose Martin Jones on 03-25-2023 Glucose [Mass/Vol] 96 mg/dL Normal 70-100 [facility] Comment on above: ADA recommended refe rence rangeRandom Glucose Reference Range is dependent on time and content of last meal. Glucose of more than 200 mg/dL in a nonstressed, ambulatory subject supports the diagnosis of Diabetes Mellitus. Result Comment: [place] om Glucose Reference Range is dependent on time and content of last meal. Glucose of more than 200 mg/dL in a nonstressed, ambulatory subject supports the diagnosis of Diabetes Mellitus. ADA recommended reference range Performed By: #### T MALIK CARDOZA BMP ####[place] [address] [address] No Panel InformationOrdered By: Jose Martin Jones on 03-25-2023 Estimated GFR (CKD-EPI) 38.094 mL/Min [facility] Creatinine Clearance (Chem N/A [facility] Potassium [Moles/volume] in Serum or PlasmaOrdered By: Jose Martin Jones on 03-25-2023 Potassium [Moles/Vol] 4.1 mmol/L Normal 3.5-5.1 [facility] Comment on above: Performed By: #### T MALIK CARDOZA BMP ####[place] [address] [address] Serum or plasma anion gap de terminationOrdered By: Jose Martin Jones on 03-25-2023 Anion gap [Moles/Vol] 10.4 mmol/L Normal 6.0-15.0 [facility] Comment on above: Performed By: #### T NANI AST, BMP ####[place] [address] [address] Sodium [Moles/volume] in Ser um or PlasmaOrdered By: Jose Martin Jones on 03-25-2023 Sodium [Moles/Vol] 142 mmol/L Normal 136-145 [facility] Comment on above: Performed By: #### T SH3, AST, BMP ####[facility] [address] Thyrotropin [Units/volume] i n Serum or PlasmaOrdered By: Jose Martin Jones on 03-25-2023 TSH Qn 0.86 m[IU]/L Normal 0.45-5.33 [facility] Comment on above: Result Comment: PERF ORMED BY: [place] [address] PATHOLOGIST [employer]OR ROWENA LIPSCOMB M.D. Performed By: #### T SH3, AST, BMP ####[place] [address] [address] Urea nitrogen [Mass/volume] in Serum or PlasmaOrdered By: Jose Martin Jones on 03-25-2023 Urea nitrogen [Mass/Vol] 29 mg/dL High 7-25 [facility] Comment on above: Performed By: #### T SH3, AST, BMP ####[address] XR chest 2V*on 03-25-2023 XR chest 2V* [facility] [place] [address] XRay Report Signed Patient: Eduardo Howard MR#: [id number] : 1945 Acct:[id number] Age/Sex: 77 / F ADM Date: 03/25/23 Loc: RT Room: Type: [facility] Attending Dr: Jose Martin Jones MD Copies to: Jose Martin Jones MD Ordering Provider: Jose Martin Jnoes MD Date of Service: 03/25/23 XR/XR chest 2V*: I48.0,Z79.899 Chest 2 views CLINICAL HISTORY: Long-term medication use for A. fib. COMPARISON: Chest 08/05/2022 FINDINGS: Cardiomegaly is unchanged. Degree of interstitial changes are unchanged. No new consolidation pneumothorax pleural effusion or free air. XR/XR chest 2V* IMPRESSION: NO ACUTE CARDIOPULMONARY ABNORMALITY. Impression dictated by: Betito Hollins Jr., D.O.03/25/2023 3:20 PM Dictation Location: [place] [address] Transcribed By: [facility] 03/25/23 1520 Dictated By: Betito Hollins Jr, DO 03/25/23 1520 Signed By: 03/25/23 1520 Normal [facility] [place] Heart Perfusion W stress and W radionuclide Leslie 03-14-2023 Normal Lexiscan Myov iew cardiac perfusion stress test. No evidence of ischemia or myocardial infarction by perfusion imaging. Normal left ventricular systolic function, ejection fraction 57%. When compared to study from 09/23/2021, the previous study reported reduced ejection fraction at 48% in contrast to the present study showing 57% ejection fraction. Signed by: Yvonne Haas 03/14/2023 3:46 PM Dictation workstation: [id number] Interpreted By: Yvonne Dow, and Keith Fleming STUDY: MYOCARDIAL PERFUSION STRESS TEST WITH LEXISCAN Performing facility: [facility], [address] [place] [address], [address], [address] Provider: Delilah Turner RN, HOT HEADER OPERATOR PCP: Dr. Shelia Wiseman Supervising provider: Nathaly Velez MD INDICATION: Cardiomyopathy A-fib HTN Abnormal EKG; HISTORY: Gender: F; Age: 77 y/o ; Height: HT 167.6 cm cm; Weight: WT 94.802 kg kg. Abnormal EKG; HTN; Arrhythmias; Denies smoking. COMPARISON: Previous nuclear testing completed at [facility]. ACCESSION NUMBER(S): [id number] ORDERING CLINICIAN: DELILAH TURNER TECHNIQUE: ONE DAY protocol. Stress injection: Date:03-14-23, 34.2 mCi of Myoview IV 20 seconds after rapid injection of Lexiscan. Rest injection: Date: 03-14-23, 10.8 mCi of Myoview IV at rest. The patient had a rapid injection of 0.4 mg of Lexiscan IV over 10 seconds. Imaging was performed by gated tomographic technique. Reason for Lexiscan: dizziness/unsteady/fall risk STRESS TEST DATA: Resting heart rate was 67 BPM. Resting blood pressure was 124/82 mmHg. Peak blood pressure was 112/68 mmHg. Peak heart rate was 80 BPM. TEST TERMINATED DUE TO: Protocol completed FINDINGS: STRESS TEST RESULTS: Resting electrocardiogram revealed atrial fibrillation with controlled rate and isolated PVCs. There were no significant ischemic ECG changes or dysrhythmias. The patient did not have chest pains/symptoms during procedure. There was a normal recovery phase. IMAGING RESULTS: Image quality was good. Rest and stress tomographic images were reviewed and revealed normal perfusion without evidence of ischemia, myocardial infarction, or left ventricular dilatation with stress. Overall left ventricular systolic function appeared to be normal without regional wall motion abnormalities. Ejection fraction was 57%. TID is 0.8 and is normal. There was no evidence of attenuation artifact. MMODAL Yvonne Haas M D - 03/14/2023 Interpreted By: Yvonne Haas and Giannuzzi Michael STUDY: MYOCARDIAL PERFUSION STRESS TEST WITH LEXISCAN Performing facility: [facility], [address] [place] [address], [address] Provider: Delilah Turner RN, HOT HEADER OPERATOR PCP: Dr. Shelia Wiseman Supervising provider: Nathaly Velez MD INDICATION: Cardiomyopathy A-fib HTN Abnormal EKG; HISTORY: Gender: F; Age: 77 y/o ; Height: HT 167.6 cm cm; Weight: WT 94.802 kg kg. Abnormal EKG; HTN; Arrhythmias; Denies smoking. COMPARISON: Previous nuclear testing completed at [facility]. ACCESSION NUMBER(S): [id number] ORDERING CLINICIAN: DELILAH TURNER TECHNIQUE: ONE DAY protocol. Stress injection: Date:03-14-23, 34.2 mCi of Myoview IV 20 seconds after rapid injection of Lexiscan. Rest injection: Date: 03-14-23, 10.8 mCi of Myoview IV at rest. The patient had a rapid injection of 0.4 mg of Lexiscan IV over 10 seconds. Imaging was performed by gated tomographic technique. Reason for Lexiscan: dizziness/unsteady/fall risk STRESS TEST DATA: Resting heart rate was 67 BPM. Resting blood pressure was 124/82 mmHg. Peak blood pressure was 112/68 mmHg. Peak heart rate was 80 BPM. TEST TERMINATED DUE TO: Protocol completed FINDINGS: STRESS TEST RESULTS: Resting electrocardiogram revealed atrial fibrillation with controlled rate and isolated PVCs. There were no significant ischemic ECG changes or dysrhythmias. The patient did not have chest pains/symptoms during procedure. There was a normal recovery phase. IMAGING RESULTS: Image quality was good. Rest and stress tomographic images were reviewed and revealed normal perfusion without evidence of ischemia, myocardial infarction, or left ventricular dilatation with stress. Overall left ventricular systolic function appeared to be normal without regional wall motion abnormalities. Ejection fraction was 57%. TID is 0.8 and is normal. There was no evidence of attenuation artifact. IMPRESSION: Normal Lexiscan Myoview cardiac perfusion stress test. No evidence of ischemia or myocardial infarction by perfusion imaging. Normal left ventricular systolic function, ejection fraction 57%. When compared to study from 09/23/2021, the previous study reported reduced ejection fraction at 48% in contrast to the present study showing 57% ejection fraction. Signed by: Yvonne Haas 03/14/2023 3:46 PM Dictation workstation: [id number] [facility] Work Phone: Radiology Study observation (narrative) [facility] Work Phone: [place] Heart Perfusion W stress and W radionuclide IVOrdered By: Yvonne Haas on 03-14-2023 [facility] Work Phone: NUCLEAR STRESS TESTon 2023 NUCLEAR STRESS TEST Interpreted By: Yvonne Dow and Keith Fleming STUDY: MYOCARDIAL PERFUSION STRESS TEST WITH LEXISCAN Performing facility: [facility], [address] [place] [address], [address], [address] Provider: Delilah Turner RN, HOT HEADER OPERATOR PCP: Dr. Shelia Wiseman Supervising provider: Nathaly Velez MD INDICATION: Cardiomyopathy A-fib HTN Abnormal EKG; HISTORY: Gender: F; Age: 77 y/o ; Height: HT 167.6 cm cm; Weight: WT 94.802 kg kg. Abnormal EKG; HTN; Arrhythmias; Denies smoking. COMPARISON: Previous nuclear testing completed at [facility]. ACCESSION NUMBER(S): [id number] ORDERING CLINICIAN: DELILAH TURNER TECHNIQUE: ONE DAY protocol. Stress injection: Date:03-14-23, 34.2 mCi of Myoview IV 20 seconds after rapid injection of Lexiscan. Rest injection: Date: 03-14-23, 10.8 mCi of Myoview IV at rest. The patient had a rapid injection of 0.4 mg of Lexiscan IV over 10 seconds. Imaging was performed by gated tomographic technique. Reason for Lexiscan: dizziness/unsteady/fall risk STRESS TEST DATA: Resting heart rate was 67 BPM. Resting blood pressure was 124/82 mmHg. Peak blood pressure was 112/68 mmHg. Peak heart rate was 80 BPM. TEST TERMINATED DUE TO: Protocol completed FINDINGS: STRESS TEST RESULTS: Resting electrocardiogram revealed atrial fibrillation with controlled rate and isolated PVCs. There were no significant ischemic ECG changes or dysrhythmias. The patient did not have chest pains/symptoms during procedure. There was a normal recovery phase. IMAGING RESULTS: Image quality was good. Rest and stress tomographic images were reviewed and revealed normal perfusion without evidence of ischemia, myocardial infarction, or left ventricular dilatation with stress. Overall left ventricular systolic function appeared to be normal without regional wall motion abnormalities. Ejection fraction was 57%. TID is 0.8 and is normal. There was no evidence of attenuation artifact. IMPRESSION: Normal Lexiscan Myoview cardiac perfusion stress test. No evidence of ischemia or myocardial infarction by perfusion imaging. Normal left ventricular systolic function, ejection fraction 57%. When compared to study from 09/23/2021, the previous study reported reduced ejection fraction at 48% in contrast to the present study showing 57% ejection fraction. Signed by: Yvonne Haas 03/14/2023 3:46 PM Dictation workstation: [id number] Normal [facility] Basic Metabolic Panelon 02-07 GFR/1.73 sq M.predicted MDRD (S/P/Bld) [Vol rate/Area] 34.560 mL/min/{1.73_m2} Normal [facility] Comment on above: Performed By: #### T SH3, BMP ####[facility] [place] [address] [facility] Calcium [Mass/volume] in Ser um or PlasmaOrdered By: Delilah Turner on 02-21-2023 Calcium [Mass/Vol] 9.6 mg/dL Normal 8.6-10.3 [facility] Comment on above: Performed By: #### T SH3, BMP ####[place] [id number] [facility] Carbon dioxide, total [Moles /volume] in Serum or PlasmaOrdered By: Delilah Turner on 02-21-2023 CO2 [Moles/Vol] 29.9 mmol/L Normal 21.0-31.0 [facility] Comment on above: Performed By: #### T SH3, BMP ####[place] [id number] [facility] Chloride [Moles/volume] in S josesito or PlasmaOrdered By: Delilah Turner on 02-21-2023 Chloride [Moles/Vol] 106 mmol/L Normal 98-107 [facility] Comment on above: Performed By: #### T SH3, BMP ####[place] [id number] [facility] Creatinine [Mass/volume] in Serum or PlasmaOrdered By: Delilah Turner on 02-21-2023 Creatinine [Mass/Vol] 1.54 mg/dL High 0.60-1.20 [facility] Comment on above: Performed By: #### T SH3, BMP ####[place] [id number] [facility] Glucose [Mass/volume] in Ser um or PlasmaOrdered By: Delilah Turner on 02-21-2023 Glucose [Mass/Vol] 79 mg/dL Normal 70-100 [facility] Comment on above: ADA recommended refe rence rangeRandom Glucose Reference Range is dependent on time and content of last meal. Glucose of more than 200 mg/dL in a nonstressed, ambulatory subject supports the diagnosis of Diabetes Mellitus. Result Comment: [place] om Glucose Reference Range is dependent on time and content of last meal. Glucose of more than 200 mg/dL in a nonstressed, ambulatory subject supports the diagnosis of Diabetes Mellitus. ADA recommended reference range Performed By: #### T SH3, BMP ####[place] [id number] [facility] No Panel InformationOrdered By: Delilah Turner on 02-21-2023 Estimated GFR (CKD-EPI) 34.560 mL/Min [facility] Creatinine Clearance (Chem N/A [facility] Potassium [Moles/volume] in Serum or PlasmaOrdered By: Delilah Turner on 02-21-2023 Potassium [Moles/Vol] 4.9 mmol/L Normal 3.5-5.1 [facility] Comment on above: Performed By: #### T SH3, BMP ####[place] [id number] [place] [id number] [facility] Serum or plasma anion gap de terminationOrdered By: Delilah Turner on 02-21-2023 Anion gap [Moles/Vol] 10.0 mmol/L Normal 6.0-15.0 [facility] Comment on above: Performed By: #### T SH3, BMP ####[place] [id number] [facility] Sodium [Moles/volume] in Ser um or PlasmaOrdered By: Delilah Turner on 02-21-2023 Sodium [Moles/Vol] 141 mmol/L Normal 136-145 [facility] Comment on above: Performed By: #### T SH3, BMP ####[place] [id number] [facility] Thyrotropin [Units/volume] i n Serum or PlasmaOrdered By: Delilah Turner on 02-21-2023 TSH Qn 1.23 m[IU]/L Normal 0.45-5.33 [facility] Comment on above: Result Comment: PERF ORMED BY: [facility] [address] [place] [id number] PATHOLOGIST [employer] ROWENA LIPSCOMB M.D. Performed By: #### T SH3, BMP ####[place] [id number] [facility] Urea nitrogen [Mass/volume] in Serum or PlasmaOrdered By: Delilah Turner on 02-21-2023 Urea nitrogen [Mass/Vol] 33 mg/dL High 7-25 [facility] Comment on above: Performed By: #### T SH3, BMP ####[id number] [place] [id number] [facility] Heart TransthoracicOrdere d By: Jose Martin Jones on 01-22-2023 Aortic Valve Area by Continuity of Peak Velocity 2.34 [facility] Work Phone: Aortic Valve Area by Continuity of VTI 2.40 [facility] Work Phone: [phone] AV mn grad 4.0 [facility] Work Phone: [phone] AV pk grad 8.2 [facility] Work Phone: AV pk kristie 1.43 [facility] Work Phone: LV A4C EF 31.2 [facility] Work Phone: LVIDd 5.60 [facility] Work Phone: LVOT diam 2.30 [facility] Work Phone: MV avg E/e' ratio 7.90 [facility] Work Phone: [phone] MV E/A ratio 1.77 [facility] Work Phone: RVSP 29.8 [facility] Work Phone: [facility] Work Phone: Heart Transthoracicon [address], [address] [place] [address] TRANSTHORACIC ECHOCARDIOGRAM REPORT Patient Name: EDUARDO Desai Physician: [id number] Jose Martin Jones MD Study Date: 01/21/2023 Ordering Provider: [id number] DELILAH TURNER MRN/PID: [id number] Fellow: Nurse: Date of /Age: 7 1945 / 77 years Front Office Java Developer: KEENAN Gender: F Additional Staff: Height: 167.64 cm Admit Date: Weight: 97.07 kg Admission Status: BSA: 2.06 m2 Department Location: [facility] Blood Pressure: 140 /84 mmHg Study Type: TRANSTHORACIC ECHO (TTE) COMPLETE Diagnosis/ICD: Cardiomyopathy, unspecified-I42.9; Abnormal electrocardiogram [ECG] [EKG]-R94.31 Indication: Paroxysmal Atrial Fibrillation, Mild CAD, HTN, Shortness of Breath CPT Codes: Echo Complete w Full Doppler-[id number] Study Detail: The following Echo studies were performed: 2D, M-Mode, Doppler and color flow. PHYSICIAN INTERPRETATION: Left Ventricle: Left ventricular systolic function is moderately to severely decreased, with an estimated ejection fraction of 30-35%. There is global hypokinesis of the left ventricle with minor regional variations. The left ventricular cavity size is upper limits of normal. Spectral Doppler shows an impaired relaxation pattern of left ventricular diastolic filling. Left Atrium: The left atrium is mild to moderately dilated. Right Ventricle: The right ventricle is mildly enlarged. There is normal right ventricular global systolic function. Right Atrium: The right atrium is upper limits of normal in size. Aortic Valve: The aortic valve is trileaflet. There is evidence of mild aortic valve stenosis. There is mild aortic valve regurgitation. The peak instantaneous gradient of the aortic valve is 8.2 mmHg. The mean gradient of the aortic valve is 4.0 mmHg. Mitral Valve: The mitral valve is mildly thickened. There is moderate mitral valve regurgitation. Tricuspid Valve: The tricuspid valve is structurally normal. There is mild tricuspid regurgitation. Pulmonic Valve: The pulmonic valve is not well visualized. There is mild pulmonic valve regurgitation. Pericardium: There is no pericardial effusion noted. Aorta: The aortic root is normal. CONCLUSIONS: 1. Left ventricular systolic function is moderately to severely decreased with a 30-35% estimated ejection fraction. 2. Spectral Doppler shows an impaired relaxation pattern of left ventricular diastolic filling. 3. The left atrium is mild to moderately dilated. 4. Moderate mitral valve regurgitation. 5. Mild aortic valve stenosis. 6. Mild aortic valve regurgitation. 7. There is global hypokinesis of the left ventricle with minor regional variations. QUANTITATIVE DATA SUMMARY: 2D MEASUREMENTS: Normal Ranges: Ao Root d: 3.50 cm (2.0-3.7cm) LAs: 4.30 cm (2.7-4.0cm) RVIDd: 3.40 cm (0.9-3.6cm) IVSd: 1.10 cm (0.6-1.1cm) LVPWd: 0.90 cm (0.6-1.1cm) LVIDd: 5.60 cm (3.9-5.9cm) LVIDs: 4.70 cm LV Mass Index: 106.7 g/m2 LV % FS 16.1 % LV SYSTOLIC FUNCTION BY 2D PLANIMETRY (MOD): Normal Ranges: EF-A4C View: 31.2 % (>=55%) LV DIASTOLIC FUNCTION: Normal Ranges: MV Peak E: 0.83 m/s (0.7-1.2 m/s) MV Peak A: 0.47 m/s (0.42-0.7 m/s) E/A Ratio: 1.77 (1.0-2.2) MV lateral e' 0.10 m/s MV medial e' 0.03 m/s E/e' Ratio: 7.90 (<8.0) MITRAL VALVE: Normal Ranges: MV Vmax: 1.23 m/s (<=1.3m/s) MV peak P.1 mmHg (<5mmHg) MV mean P.0 mmHg (<48mmHg) MITRAL INSUFFICIENCY: Normal Ranges: MR Vmax: 551.50 cm/s dP/dt: 653 mmHg/s (>1200mmHg/sec) AORTIC VALVE: Normal Ranges: AoV Vmax: 1.43 m/s (<=1.7m/s) AoV Peak P.2 mmHg (<20mmHg) AoV Mean P.0 mmHg (1.7-11.5mmHg) LVOT Max Kristie: 0.80 m/s (<=1.1m/s) AoV VTI: 33.70 cm (18-25cm) LVOT VTI: 19.50 cm LVOT Diameter: 2.30 cm (1.8-2.4cm) AoV Area, VTI: 2.40 cm2 (2.5-5.5cm2) AoV Area,Vmax: 2.34 cm2 (2.5-4.5cm2) AoV Dimensionless Index: 0.58 AORTIC INSUFFICIENCY: AI Vmax: 2.72 m/s AI Half-time: 669 msec AI Decel Rate: 94.15 cm/s2 TRICUSPID VALVE/RVSP: Normal Ranges: Peak TR Kristie (more content not included)... DEMETRIUSO Jose Martin Jones MD - 01/22/2023 [facility] [address], [address], [place] [address] TRANSTHORACIC ECHOCARDIOGRAM REPORT Patient Name: EDUARDO HOWARD Reading Physician: [id number] Jose Martin Jones MD Study Date: 01/21/2023 Ordering Provider: [id number] DELILAH TURNER MRN/PID: [id number] Fellow: Nurse: Date of /Age: 7 1945 / years Front Office Java Developer: KEENAN Gender: F Additional Staff: Height: 167.64 cm Admit Date: Weight: 97.07 kg Admission Status: BSA: 2.06 m2 Department Location: [facility] Blood Pressure: 140 /84 mmHg Study Type: TRANSTHORACIC ECHO (TTE) COMPLETE Diagnosis/ICD: Cardiomyopathy, unspecified-I42.9; Abnormal electrocardiogram [ECG] [EKG]-R94.31 Indication: Paroxysmal Atrial Fibrillation, Mild CAD, HTN, Shortness of Breath CPT Codes: Echo Complete w Full Doppler-[id number] Study Detail: The following Echo studies were performed: 2D, M-Mode, Doppler and color flow. PHYSICIAN INTERPRETATION: Left Ventricle: Left ventricular systolic function is moderately to severely decreased, with an estimated ejection fraction of 30-35%. There is global hypokinesis of the left ventricle with minor regional variations. The left ventricular cavity size is upper limits of normal. Spectral Doppler shows an impaired relaxation pattern of left ventricular diastolic filling. Left Atrium: The left atrium is mild to moderately dilated. Right Ventricle: The right ventricle is mildly enlarged. There is normal right ventricular global systolic function. Right Atrium: The right atrium is upper limits of normal in size. Aortic Valve: The aortic valve is trileaflet. There is evidence of mild aortic valve stenosis. There is mild aortic valve regurgitation. The peak instantaneous gradient of the aortic valve is 8.2 mmHg. The mean gradient of the aortic valve is 4.0 mmHg. Mitral Valve: The mitral valve is mildly thickened. There is moderate mitral valve regurgitation. Tricuspid Valve: The tricuspid valve is structurally normal. There is mild tricuspid regurgitation. Pulmonic Valve: The pulmonic valve is not well visualized. There is mild pulmonic valve regurgitation. Pericardium: There is no pericardial effusion noted. Aorta: The aortic root is normal. CONCLUSIONS: 1. Left ventricular systolic function is moderately to severely decreased with a 30-35% estimated ejection fraction. 2. Spectral Doppler shows an impaired relaxation pattern of left ventricular diastolic filling. 3. The left atrium is mild to moderately dilated. 4. Moderate mitral valve regurgitation. 5. Mild aortic valve stenosis. 6. Mild aortic valve regurgitation. 7. There is global hypokinesis of the left ventricle with minor regional variations. QUANTITATIVE DATA SUMMARY: 2D MEASUREMENTS: Normal Ranges: Ao Root d: 3.50 cm (2.0-3.7cm) LAs: 4.30 cm (2.7-4.0cm) RVIDd: 3.40 cm (0.9-3.6cm) IVSd: 1.10 cm (0.6-1.1cm) LVPWd: 0.90 cm (0.6-1.1cm) LVIDd: 5.60 cm (3.9-5.9cm) LVIDs: 4.70 cm LV Mass Index: 106.7 g/m2 LV % FS 16.1 % LV SYSTOLIC FUNCTION BY 2D PLANIMETRY (MOD): Normal Ranges: EF-A4C View: 31.2 % (>=55%) LV DIASTOLIC FUNCTION: Normal Ranges: MV Peak E: 0.83 m/s (0.7-1.2 m/s) MV Peak A: 0.47 m/s (0.42-0.7 m/s) E/A Ratio: 1.77 (1.0-2.2) MV lateral e' 0.10 m/s MV medial e' 0.03 m/s E/e' Ratio: 7.90 (<8.0) MITRAL VALVE: Normal Ranges: MV Vmax: 1.23 m/s (<=1.3m/s) MV peak P.1 mmHg (<5mmHg) MV mean P.0 mmHg (<48mmHg) MITRAL INSUFFICIENCY: Normal Ranges: MR Vmax: 551.50 cm/s dP/dt: 653 mmHg/s (>1200mmHg/sec) AORTIC VALVE: Normal Ranges: AoV Vmax: 1.43 m/s (<=1.7m/s) AoV Peak P.2 mmHg (<20mmHg) AoV Mean P.0 mmHg (1.7-11.5mmHg) LVOT Max Kristie: 0.80 m/s (<=1.1m/s) AoV VTI: 33.70 cm (18-25cm) LVOT VTI: 19.50 cm LVOT Diameter: 2.30 cm (1.8-2.4cm) AoV Area, VTI: 2.40 cm2 (2.5-5.5cm2) AoV Area,Vmax: 2.34 cm2 (2.5-4.5cm2) AoV Dimensionless Index: 0.58 AORTIC INSUFFICIENCY: AI Vmax: 2.72 m/s AI Half-time: 669 msec AI Decel Rate: 94.15 cm/s2 TRICUSPID VALVE/RVSP: Normal Ranges: Peak TR Velocity: 2.59 m/s RV Syst Pressure: 29.8 mmHg (< 30mmHg) PULMONIC VALVE: Normal Ranges: PV Max Kristie: 0.5 m/s (0.6-0.9m/s) PV Max P.0 mmHg PIEDV: 1.92 m/s PADP: 17.7 mmHg [id number] Jones MD Electronically signed on 01/22/2023 at 4:07:35 PM Final [facility] Work Phone: TRANSTHORACIC ECHO (TTE) [facility] 01-21-2023 TRANSTHORACIC ECHO (TTE) COMPLETE [address], [place] [address] TRANSTHORACIC ECHOCARDIOGRAM REPORT Patient Name: EDUARDO Desai Physician: [id number] Jones MD Study Date: 01/21/2023 Ordering Provider: [id number] DELILAH TURNER MRN/PID: [id number] Fellow: Nurse: Date of /Age: 7 1945 / 77 years Front Office Java Developer: KEENAN Gender: F Additional Staff: Height: 167.64 cm Admit Date: Weight: 97.07 kg Admission Status: BSA: 2.06 m2 Department Location: [facility] Blood Pressure: 140 /84 mmHg Study Type: TRANSTHORACIC ECHO (TTE) COMPLETE Diagnosis/ICD: Cardiomyopathy, unspecified-I42.9; Abnormal electrocardiogram [ECG] [EKG]-R94.31 Indication: Paroxysmal Atrial Fibrillation, Mild CAD, HTN, Shortness of Breath CPT Codes: Echo Complete w Full Doppler-[id number] Study Detail: The following Echo studies were performed: 2D, M-Mode, Doppler and color flow. PHYSICIAN INTERPRETATION: Left Ventricle: Left ventricular systolic function is moderately to severely decreased, with an estimated ejection fraction of 30-35%. There is global hypokinesis of the left ventricle with minor regional variations. The left ventricular cavity size is upper limits of normal. Spectral Doppler shows an impaired relaxation pattern of left ventricular diastolic filling. Left Atrium: The left atrium is mild to moderately dilated. Right Ventricle: The right ventricle is mildly enlarged. There is normal right ventricular global systolic function. Right Atrium: The right atrium is upper limits of normal in size. Aortic Valve: The aortic valve is trileaflet. There is evidence of mild aortic valve stenosis. There is mild aortic valve regurgitation. The peak instantaneous gradient of the aortic valve is 8.2 mmHg. The mean gradient of the aortic valve is 4.0 mmHg. Mitral Valve: The mitral valve is mildly thickened. There is moderate mitral valve regurgitation. Tricuspid Valve: The tricuspid valve is structurally normal. There is mild tricuspid regurgitation. Pulmonic Valve: The pulmonic valve is not well visualized. There is mild pulmonic valve regurgitation. Pericardium: There is no pericardial effusion noted. Aorta: The aortic root is normal. CONCLUSIONS: 1. Left ventricular systolic function is moderately to severely decreased with a 30-35% estimated ejection fraction. 2. Spectral Doppler shows an impaired relaxation pattern of left ventricular diastolic filling. 3. The left atrium is mild to moderately dilated. 4. Moderate mitral valve regurgitation. 5. Mild aortic valve stenosis. 6. Mild aortic valve regurgitation. 7. There is global hypokinesis of the left ventricle with minor regional variations. QUANTITATIVE DATA SUMMARY: 2D MEASUREMENTS: Normal Ranges: Ao Root d: 3.50 cm (2.0-3.7cm) LAs: 4.30 cm (2.7-4.0cm) RVIDd: 3.40 cm (0.9-3.6cm) IVSd: 1.10 cm (0.6-1.1cm) LVPWd: 0.90 cm (0.6-1.1cm) LVIDd: 5.60 cm (3.9-5.9cm) LVIDs: 4.70 cm LV Mass Index: 106.7 g/m2 LV % FS 16.1 % LV SYSTOLIC FUNCTION BY 2D PLANIMETRY (MOD): Normal Ranges: EF-A4C View: 31.2 % (>=55%) LV DIASTOLIC FUNCTION: Normal Ranges: MV Peak E: 0.83 m/s (0.7-1.2 m/s) MV Peak A: 0.47 m/s (0.42-0.7 m/s) E/A Ratio: 1.77 (1.0-2.2) MV lateral e' 0.10 m/s MV medial e' 0.03 m/s E/e' Ratio: 7.90 (<8.0) MITRAL VALVE: Normal Ranges: MV Vmax: 1.23 m/s (<=1.3m/s) MV peak P.1 mmHg (<5mmHg) MV mean P.0 mmHg (<48mmHg) MITRAL INSUFFICIENCY: Normal Ranges: MR Vmax: 551.50 cm/s dP/dt: 653 mmHg/s (>1200mmHg/sec) AORTIC VALVE: Normal Ranges: AoV Vmax: 1.43 m/s (<=1.7m/s) AoV Peak P.2 mmHg (<20mmHg) AoV Mean P.0 mmHg (1.7-11.5mmHg) LVOT Max Kristie: 0.80 m/s (<=1.1m/s) AoV VTI: 33.70 cm (18-25cm) LVOT VTI: 19.50 cm LVOT Diameter: 2.30 cm (1.8-2.4cm) AoV Area, VTI: 2.40 cm2 (2.5-5.5cm2) AoV Area,Vmax: 2.34 cm2 (2.5-4.5cm2) AoV Dimensionless Index: 0.58 AORTIC INSUFFICIENCY: AI Vmax: 2.72 m/s AI Half-time: 669 msec AI Decel Rate: 94.15 cm/s2 TRICUSPID VALVE/RVSP: Normal Ranges: Peak TR Velocity: 2.59 m/s RV Syst Pressure: 29.8 mmHg (< 30mmHg) PULMONIC VALVE: Normal Ranges: PV Max Kristie: 0.5 m/s (0.6-0.9m/s) PV Max P.0 mmHg PIEDV: 1.92 m/s PADP: 17.7 mmHg [id number] Jose Martin Jones MD Electronically signed on 01/22/2023 at 4:07:35 PM Final [facility] Alanine aminotransferase [En zymatic activity/volume] in Serum or PlasmaOrdered By: Andrei Wiseman on 08-05-2022 ALT [Catalytic activity/Vol] 28 U/L 7-52 [facility] Albumin [Mass/volume] in Ser um or Plasma by Bromocresol green (BCG) dye binding methoOrdered By: Andrei Wiseman on 08-05-2022 Albumin BCG dye [Mass/Vol] 4.0 g/dL 3.5-5.7 [facility] Alkaline phosphatase [Enzyma tic activity/volume] in Serum or PlasmaOrdered By: Andrei Wiseman on 08-05-2022 ALP [Catalytic activity/Vol] 70 U/L 34-104 [facility] Aspartate aminotransferase [ Enzymatic activity/volume] in Serum or PlasmaOrdered By: Andrei Wiseman on 08-05-2022 AST [Catalytic activity/Vol] 29 U/L 13-39 [facility] Basophils Auto (Bld) [#/Vol] Ordered By: Andrei Wiseman on 08-05-2022 Basophils (Bld) [#/Vol] 0.1 10*3/uL 0.0-0.2 [facility] Basophils/100 WBC Auto (Bld) Ordered By: Andrei Wiseman on 08-05-2022 Basophils/100 WBC (Bld) 1.1 % . [facility] Bilirubin.total [Mass/volume ] in Serum or PlasmaOrdered By: Andrei Wiseman on 08-05-2022 Bilirubin [Mass/Vol] 0.8 mg/dL 0.3-1.0 [facility] Calcium [Mass/volume] in Ser um or PlasmaOrdered By: Andrei Wiseman on 08-05-2022 Calcium [Mass/Vol] 8.7 mg/dL 8.6-10.3 [facility] Carbon dioxide, total [Moles /volume] in Serum or PlasmaOrdered By: Andrei Wiseman on 08-05-2022 CO2 [Moles/Vol] 26.5 mmol/L 21.0-31.0 [facility] Chloride [Moles/volume] in S josesito or PlasmaOrdered By: Andrei Wiseman on 08-05-2022 Chloride [Moles/Vol] 109 mmol/L 98-107 [facility] Cholesterol [Mass/volume] in Serum or PlasmaOrdered By: Andrei Wiseman on 08-05-2022 Cholesterol [Mass/Vol] 159 mg/dL 140-200 [facility] Comment on above: Chol less than 200 m g/dl low riskChol 201-239 mg/dl borderline riskChol 240 mg/dl and greater high risk Cholesterol in LDL Calc [Mas s/Vol]Ordered By: Andrei Wiseman on 08-05-2022 Cholesterol in LDL [Mass/Vol] 87 mg/dL 0-100 [facility] Comment on above: LDL ATP III CLASSIFI CATIONLDL less than 100 mg/dL OptimalLDL 100-129 mg/dL Near or above optimalLDL 130-159 mg/dL Borderline highLDL 160-189 mg/dL HighLDL greater than 189 mg/dL Very high Cholesterol in VLDL Calc [Ma ss/Vol]Ordered By: Andrei Wiseman on 08-05-2022 Cholesterol in VLDL [Mass/Vol] 22 mg/dL [facility] Creatinine [Mass/volume] in Serum or PlasmaOrdered By: Andrei Wiseman on 08-05-2022 Creatinine [Mass/Vol] 1.55 mg/dL 0.60-1.20 [facility] Eosinophils Auto (Bld) [#/Vo l]Ordered By: Andrei Wiseman on 08-05-2022 Eosinophils (Bld) [#/Vol] 0.4 10*3/uL 0.0-0.45 [facility] Eosinophils/100 WBC Auto (Bl d)Ordered By: Andrei Wiseman on 08-05-2022 Eosinophils/100 WBC (Bld) 6.1 % . [facility] Erythrocyte distribution wid th Auto (RBC) [Ratio]Ordered By: Andrei Wiseman on 08-05-2022 Erythrocyte distribution width (RBC) [Ratio] 14.1 % 11.9-15.3 [facility] Globulin Calc (S) [Mass/Vol] Ordered By: Andrei Wiseman on 08-05-2022 Globulin (S) [Mass/Vol] 2.4 g/dL [facility] Glucose [Mass/volume] in Ser um or PlasmaOrdered By: Andrei Wiseman on 08-05-2022 Glucose [Mass/Vol] 79 mg/dL 70-100 [facility] Comment on above: ADA recommended refe rence rangeRandom Glucose Reference Range is dependent on time and content of last meal. Glucose of more than 200 mg/dL in a nonstressed, ambulatory subject supports the diagnosis of Diabetes Mellitus. Hematocrit Auto (Bld) [Volum e fraction]Ordered By: Andrei Wiseman on 08-05-2022 Hematocrit (Bld) [Volume fraction] 42.1 % 34.0-46.4 [facility] Hemoglobin [Mass/volume] in BloodOrdered By: Andrei Wiseman on 08-05-2022 Hemoglobin (Bld) [Mass/Vol] 13.9 g/dL 11.8-15.4 [facility] Leukocytes [#/volume] correc henry for nucleated erythrocytes in Blood by Automated counOrdered By: Andrei Wiseman on 08-05-2022 WBC corrected for nucl RBC Auto (Bld) [#/Vol] 5.9 10*3/uL 3.8-11.6 [facility] Lymphocytes Auto (Bld) [#/Vo l]Ordered By: Andrei Wiseman on 08-05-2022 Lymphocytes (Bld) [#/Vol] 1.7 10*3/uL 1.00-4.8 [facility] Lymphocytes/100 WBC Auto (Bl d)Ordered By: Andrie Wiseman on 08-05-2022 Lymphocytes/100 WBC (Bld) 28.9 % . [facility] MCH Auto (RBC) [Entitic mass ]Ordered By: Andrei Wiseman on 08-05-2022 MCH (RBC) [Entitic mass] 29.1 pg 24.7-34.3 [facility] MCHC Auto (RBC) [Mass/Vol]Or dered By: Andrei Wiseman on 08-05-2022 MCHC (RBC) [Mass/Vol] 33.1 g/dL 32.0-35.0 [facility] MCV Auto (RBC) [Entitic vol] Ordered By: Andrei Wiseman on 08-05-2022 MCV (RBC) [Entitic vol] 87.8 fL 80-100 [facility] Monocytes Auto (Bld) [#/Vol] Ordered By: Andrei Wiseman on 08-05-2022 Monocytes (Bld) [#/Vol] 0.6 10*3/uL 0.0-0.8 [facility] Monocytes/100 WBC Auto (Bld) Ordered By: Andrei Wiseman on 08-05-2022 Monocytes/100 WBC (Bld) 9.8 % . [facility] Neutrophils Auto (Bld) [#/Vo l]Ordered By: Andrei Wiseman on 08-05-2022 Neutrophils (Bld) [#/Vol] 3.2 10*3/uL 1.8-7.7 [facility] Neutrophils/100 WBC Auto (Bl d)Ordered By: Andrei Wiseman on 08-05-2022 Neutrophils/100 WBC (Bld) 54.1 % . [facility] No Panel InformationOrdered By: Andrei Wiseman on 08-05-2022 Estimated GFR (CKD-EPI) 34.508 mL/Min [facility] Creatinine Clearance (Chem N/A [facility] Nucleated erythrocytes [Pres ence] in Blood by Automated countOrdered By: Andrei Wiseman on 08-05-2022 Nucleated RBC Auto Ql (Bld) 0.1 /100{WBC} 0-0.5 [facility] Platelet mean volume Auto (B ld) [Entitic vol]Ordered By: Andrei Wiseman on 08-05-2022 Platelet mean volume (Bld) [Entitic vol] 8.5 fL 6.3-10.7 [facility] Platelets Auto (Bld) [#/Vol] Ordered By: Andrei Wiseman on 08-05-2022 Platelets (Bld) [#/Vol] 154 10*3/uL 150-450 [facility] Potassium [Moles/volume] in Serum or PlasmaOrdered By: Andrei Wiseman on 08-05-2022 Potassium [Moles/Vol] 4.5 mmol/L 3.5-5.1 [facility] Protein [Mass/volume] in Ser um or PlasmaOrdered By: Andrei Wiseman on 08-05-2022 Protein [Mass/Vol] 6.4 g/dL 6.4-8.9 [facility] RBC Auto (Bld) [#/Vol]Ordere d By: Andrei Wiseman on 08-05-2022 RBC (Bld) [#/Vol] 4.80 10*6/uL 3.60-5.00 [facility] XR Chest 2 Views Normal [facility] [facility] [address] DO Work Phone: Serum or plasma albumin/glob ulin mass ratioOrdered By: Andrei Wiseman on 08-05-2022 Albumin/Globulin [Mass ratio] 1.7 {ratio} [facility] Serum or plasma anion gap de terminationOrdered By: Andrei Wiseman on 08-05-2022 Anion gap [Moles/Vol] 11.0 mmol/L 6.0-15.0 [facility] Serum or plasma high density lipoprotein (HDL) cholesterol measurementOrdered By: Andrei Wiseman on 08-05-2022 Cholesterol in HDL [Mass/Vol] 49 mg/dL 23-92 [facility] Comment on above: HDL CHOL ATP-III CLA SSIFICATION Cardiovascular RiskHDL > or equal to 60 mg/dL LOWHDL < 40 mg/dL HIGH Serum or plasma total choles terol/high density lipoprotein (HDL) cholesterol mass ratOrdered By: Andrei Wiseman on 08-05-2022 Cholesterol.total/Chol esterol in HDL [Mass ratio] 3.2 {ratio} <5.0 [facility] Sodium [Moles/volume] in Ser um or PlasmaOrdered By: Andrei Wiseman on 08-05-2022 Sodium [Moles/Vol] 142 mmol/L 136-145 [facility] Thyrotropin [Units/volume] i n Serum or PlasmaOrdered By: Andrei Wiseman on 08-05-2022 TSH Qn 1.66 m[IU]/L 0.45-5.33 [facility] Thyroxine (T4) free [Mass/vo lume] in Serum or PlasmaOrdered By: Andrei Wiseman on 08-05-2022 Free T4 [Mass/Vol] 1.92 ng/dL 0.61-1.12 [facility] Triglyceride [Mass/volume] i n Serum or PlasmaOrdered By: Andrei Wiseman on 08-05-2022 Triglyceride [Mass/Vol] 113 mg/dL 0-149 [facility] Comment on above: TRIG ATP III CLASSIF ICATIONTRIG less than 150 mg/dL NormalTRIG 150-199 mg/dL Borderline highTRIG 200-500 mg/dL High TRIG greater than 500 mg/dL Very highStandard traceable to the Center for Disease Conrtrol and Prevention (CDC) test method. Urea nitrogen [Mass/volume] in Serum or PlasmaOrdered By: Andrei Wiseman on 08-05-2022 Urea nitrogen [Mass/Vol] 26 mg/dL 7- [facility] WBC Auto (Bld) [#/Vol]Ordere d By: Andrei Wiseman on 08-05-2022 WBC (Bld) [#/Vol] 5.9 10*3/uL 3.8-11.6 [facility] Tobacco Screening.on 023 Adult depression screening assessment No [facility] [employer] [employer] [facility] [address] DO Work Phone: Fall risk assessment a) No falls within the last year [facility] [address] DO Work Phone: Tobacco use status CPHS b) No [facility] [address] DO Work Phone: Aspartate aminotransferase [ Enzymatic activity/volume] in Serum or PlasmaOrdered By: Jose Martin Jones on 04-27-2022 AST [Catalytic activity/Vol] 30 U/L 13-39 [facility] Calcium [Mass/volume] in Ser um or PlasmaOrdered By: Jose Martin Jones on 04-27-2022 Calcium [Mass/Vol] 9.5 mg/dL 8.6-10.3 [facility] Carbon dioxide, total [Moles /volume] in Serum or PlasmaOrdered By: Jose Martin Jones on 04-27-2022 CO2 [Moles/Vol] 26.1 mmol/L 21.0-31.0 [facility] Chloride [Moles/volume] in S josesito or PlasmaOrdered By: Jose Martin Jones on 04-27-2022 Chloride [Moles/Vol] 105 mmol/L 98-107 [facility] Creatinine [Mass/volume] in Serum or PlasmaOrdered By: Jose Martin Jones on 04-27-2022 Creatinine [Mass/Vol] 1.68 mg/dL 0.60-1.20 [facility] Glucose [Mass/volume] in Ser um or PlasmaOrdered By: Jose Martin Jones on 04-27-2022 Glucose [Mass/Vol] 93 mg/dL 74-109 [facility] Comment on above: ADA recommended refe rence rangeRandom Glucose Reference Range is dependent on time and content of last meal. Glucose of more than 200 mg/dL in a nonstressed, ambulatory subject supports the diagnosis of Diabetes Mellitus. Laboratory - Chemistry and C hemistry - challengeOrdered By: Jose Martin Jones on 04-27-2022 GFR/1.73 sq M.predicted MDRD (S/P/Bld) [Vol rate/Area] 31.328 mL/min/{1.73_m2} [facility] No Panel InformationOrdered By: Jose Martin Jones on 04-27-2022 Pharmacy Creatinine Clearance (Chem N/A [facility] No Panel Informationon 04-27 30\S\30 Normal 13-39 [facility] [address] DO Work Phone: 31.328\S\31.328 Normal [facility] [address] DO Work Phone: 15.4\S\15.4 above high threshold 6.0-15.0 [facility] [address] DO Work Phone: [phone] 9.5\S\9.5 Normal 8.6-10.3 [facility] [address] DO Work Phone: 26.1\S\26.1 Normal 21.0-31.0 [facility] [address] DO Work Phone: 105\S\105 Normal 98-107 [facility] [address] DO Work Phone: 4.5\S\4.5 Normal 3.5-5.1 [facility] [address] DO Work Phone: 142\S\142 Normal 136-145 [facility] [address] c[address]allos 250 DO Work Phone: 1.68\S\1.68 above high threshold 0.60-1.20 [facility] [address] 250 DO Work Phone: 32\S\32 above high threshold 7-25 [facility] [address] [address] 250 DO Work Phone: 93\S\93 Normal 74-109 [facility] [address] DO Work Phone: Comment on above: Random Glucose Refer ence Range is dependent on time and content of last meal. Glucose of more than 200 mg/dL in a nonstressed, ambulatory subject supports the diagnosis of Diabetes Mellitus. ADA recommended reference range 1.23\S\1.23 Normal 0.45-5.33 [facility] Tonny Kaur DO Work Phone: Comment on above: PERFORMED BY:[facility] [place], [place] [phone] MEDICAL DIRECTORROWENA LIPSCOMB M.D. Potassium [Moles/volume] in Serum or PlasmaOrdered By: Jose Martin Jones on 04-27-2022 Potassium [Moles/Vol] 4.5 mmol/L 3.5-5.1 [facility] Radiologyon 04-27-2022 XR Chest 2 Views Normal [facility] Tonny Kaur DO Work Phone: Serum or plasma anion gap de terminationOrdered By: Jose Martin Jones on 04-27-2022 Anion gap [Moles/Vol] 15.4 mmol/L 6.0-15.0 [facility] Sodium [Moles/volume] in Ser um or PlasmaOrdered By: Jose Martin Jones on 04-27-2022 Sodium [Moles/Vol] 142 mmol/L 136-145 [facility] Thyrotropin [Units/volume] i n Serum or PlasmaOrdered By: Jose Martin Jones on 04-27-2022 TSH Qn 1.23 m[IU]/L 0.45-5.33 [facility] Urea nitrogen [Mass/volume] in Serum or PlasmaOrdered By: Jose Martin Jones on 04-27-2022 Urea nitrogen [Mass/Vol] 32 mg/dL 7 [facility] Creatinine and Glomerular fi ltration rate.predicted panel (S/P/Bld)Ordered By: Jose Martin Jones on 01-21-2022 Creatinine [Mass/Vol] 1.34 mg/dL 0.44-1.03 [facility] Estimated glomerular filtrat ion rate (GFR) non- AmericanOrdered By: Jose Martin Jones on 01-21-2022 GFR/1.73 sq M.predicted among non-blacks MDRD (S/P/Bld) [Vol rate/Area] 38 mL/Min [facility] No Panel InformationOrdered By: Jose Martin Jones on 01-21-2022 Estimated GFR () 47 mL/Min [facility] Comment on above: GFR estimated refere nce range: According to KDOQI guidelines, <60 ml/min/1.73m2 is sufficient to diagnose a patient with chronic kidney disease. Pharmacy Creatinine Clearance (Chem N/A [facility] No Panel Informationon 01-21 1.19\S\1.19 Normal 0.45-5.33 [facility] [address] DO Work Phone: Comment on above: PERFORMED BY:[place] [address] [place], [place] [phone] MEDICAL DIRECTORROWENA LIPSCOMB M.D. 22\S\22 Normal 10-42 [facility] [address] DO Work Phone: 10.7\S\10.7 Normal 6.0-15.0 [facility] [employer] [facility] [address] DO Work Phone: 8.7\S\8.7 Normal 8.2-10.2 [facility] [employer] [facility] [address] DO Work Phone: 25.5\S\25.5 Normal 22.0-30.0 [facility] [employer] DO Work Phone: 108\S\108 Normal 95-[facility] DO Work Phone: 4.2\S\4.2 Normal 3.5-5.1 [facility] DO Work Phone: [phone] 140\S\140 Normal 136-146 [facility] [employer] [facility] [address] DO Work Phone: 47\S\47 [facility] DO Work Phone: Comment on above: GFR estimated refere nce range: According to KDOQI guidelines, <60 ml/min/1.73m2 is sufficient to diagnose a patient with chronic kidney disease. 38\S\38 Normal [facility] [address] DO Work Phone: 1.34\S\1.34 above high threshold 0.44-1.03 [facility] [employer] [facility] [address] DO Work Phone: 16\S\16 Normal 9-23 [facility] DO Work Phone: [phone] 67\S\67 below low threshold 70-100 [facility] DO Work Phone: Comment on above: Random Glucose Refer ence Range is dependent on time and content of last meal. Glucose of more than 200 mg/dL in a nonstressed, ambulatory subject supports the diagnosis of Diabetes Mellitus. ADA recommended reference range Office Visit (Cardiology)on 01-21-2022 Follow-up visit Diagnoses/Problems Assessed Anticoagulated (V58.61) (Z79.01) Cardiomyopathy (425.4) (I42.9) Essential hypertension, benign (401.1) (I10) 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s (not anticoagulants) long-term use (V58.69) (Z79.899) Mild CAD (414.00) (I25.10) Paroxysmal atrial fibrillation (427.31) (I48.0) Class 2 obesity with body mass index (BMI) of 38.0 to 38.9 in adult (278.00,V85.38) (E66.9,Z68.38) Never a smoker Orders Cardiomyopathy, Essential hypertension, benign, Paroxysmal atrial fibrillation Start: Metoprolol Succinate ER 200 MG Oral Tablet Extended Release 24 Hour; TAKE 1 TABLET ONCE DAILY Class 2 obesity with body mass index (BMI) of 38.0 to 38.9 in adult Healthy Weight Tips; Status:Complete - Retrospective Authorization; Done: [id number] Some eating tips that can help you lose weight.; Status:Complete - Retrospective Authorization; Done: [id number] Paroxysmal atrial fibrillation IO EKG Electrocardiogram- 12 Lead; Status:Complete; Done: [id number] SocHx: Never a smoker Tobacco Use Screening; Status:Complete; Done: [id number] Unlinked Stop: Metoprolol Tartrate 100 MG Oral Tablet Patient Instructions Please bring all medicines, vitamins, and herbal supplements with you when you come to the office. Prescriptions will not be filled unless you are compliant with your follow up appointments or have a follow up appointment scheduled as per instruction of your physician. Refills should be requested at the time of your visit. Keep amio testing as scheduled. Follow up in 6-9 months Chief Complaint EDUARDO HOWARD is being seen for a 3 month follow-up of. History of Present Illness Patient returns for follow-up of problems as noted. She is done well. She has no manifestations of heart failure and she states that the recent adjustments to medical therapy significantly improved her feeling of edema retention and/or dyspnea. I believe is the spironolactone. We note she is on 200 mg of metoprolol tartrate and I believe succinate to be superior because of this that changes made. She is on afterload reduction and spironolactone with improvement in ejection fraction of 45%. I suggested if she had more symptoms we would add Jardiance but for the time being we will continue as is. We feel that her cardiomyopathy is adequately treated as is hypertension and paroxysmal atrial fibrillation. She has no manifestations of her mild coronary disease which was previously identified and evaluated and we doubt progression. In light of all the above we suggest the change to metoprolol succinate but otherwise continued therapy as is and follow-up in 6 to 9 months. We did advocate the merits of diet exercise and weight loss. Surgical History Problems History of Abdominal panniculectomy History of Biopsy History of Cardioversion History of Cataract surgery History of Cholecystectomy History of Colonoscopy Resolved Date: History of Gastric bypass surgery History of Gastric Surgery For Morbid Obesity Gastric Bypass History of Lithotripsy History of Oral surgery History of Tonsillectomy History of Tubal ligation Past Medical History Problems History of arthritis (V13.4) (Z87.39) History of hypertension (V12.59) (Z86.79) History of renal calculi (V13.01) (Z87.442) Current Meds Medication NameInstruction Amiodarone HCl - 200 MG Oral TabletTAKE 1 TABLET DAILY. Eliquis 2.5 MG Oral Tabletone twice daily FLUoxetine HCl - 10 MG Oral TabletTAKE 1 TABLET DAILY DIRECTED. Losartan Potassium 100 MG Oral TabletTAKE 1 TABLET DAILY. Metoprolol Tartrate 100 MG Oral TabletTAKE 1 TABLET TWICE DAILY. Pantoprazole Sodium 40 MG Oral Tablet Delayed ReleaseTAKE 1 TABLET DAILY. Spironolactone 25 MG Oral TabletTAKE 1 TABLET DAILY. Zyrtec 10 MG TABSTAKE 1 TABLET DAILY. 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 Eyes: no eyesight problems. ENT: no hearing loss and no nosebleeds. Cardiovascular: no intermittent leg claudication and as noted in HPI. Respiratory: no chronic cough and no shortness of breath. Gastrointestinal: no change in bowel habits and no blood in stools. Genitourinary: no urinary frequency. Skin: no skin rashes. Neurological: no seizures and no frequent falls. Psychiatric: no depression and not suicidal. All other systems have been reviewed and are negative for complaint. Vitals Vital Signs Recorded: [id number] 02:17PM Heart Rate47, Apical [id number], RUE, Sitting [id number], (more content not included)... Normal [facility] 01-21-2022 XR Chest 2 Views Normal -[facility] [address] DO Work Phone: Serum or plasma anion gap de terminationOrdered By: Jose Martin Jones on 01-21-2022 Anion gap [Moles/Vol] 10.7 mmol/L 6.0-15.0 [facility] Serum or plasma aspartate am inotransferase measurement (enzymatic activity/volume)Ordered By: Jose Martin Jones on 01-21-2022 AST [Catalytic activity/Vol] 22 U/L 10-42 [facility] Serum or plasma calcium michael urement (mass/volume)Ordered By: Jose Martin Jones on 01-21-2022 Calcium [Mass/Vol] 8.7 mg/dL 8.2-10.2 [facility] Serum or plasma chloride diane surement (moles/volume)Ordered By: Jose Martin Jones on 01-21-2022 Chloride [Moles/Vol] 108 mmol/L 95-114 [facility] Serum or plasma glucose michael urement (mass/volume)Ordered By: Jose Martin Jones on 01-21-2022 Glucose [Mass/Vol] 67 mg/dL 70-100 [facility] Comment on above: ADA recommended refe rence rangeRandom Glucose Reference Range is dependent on time and content of last meal. Glucose of more than 200 mg/dL in a nonstressed, ambulatory subject supports the diagnosis of Diabetes Mellitus. Serum or plasma potassium me asurement (moles/volume)Ordered By: Jose Martin Jones on 01-21-2022 Potassium [Moles/Vol] 4.2 mmol/L 3.5-5.1 [facility] Serum or plasma sodium measu rement (moles/volume)Ordered By: Jose Martin Jones on 01-21-2022 Sodium [Moles/Vol] 140 mmol/L 136-146 [facility] Serum or plasma total carbon dioxide measurement (moles/volume)Ordered By: Jose Martin Jones on 01-21-2022 CO2 [Moles/Vol] 25.5 mmol/L 22.0-30.0 [facility] Serum or plasma urea nitroge n measurement (mass/volume)Ordered By: Jose Martin Jones on 01-21-2022 Urea nitrogen [Mass/Vol] 16 mg/dL 10-30 [facility] TSH DL <= 0.005 mIU/L QnOrde red By: Jose Martin Jones on 01-21-2022 TSH Qn 1.19 m[IU]/L 0.45-5.33 [facility] Tobacco Screening.on 022 Fall risk assessment a) No falls within the last year -[facility] [address] DO Work Phone: Tobacco use status CPHS b) No -[facility] [address] DO Work Phone: Cardiovasc Arrhythmia Result son 11-10-2021 Cardiovasc Arrhythmia Results Reason For Visit Reason for Visit: Holter Monitor: [place] is here for the application of a 24 hour Holter monitor. Ordering Physician: Delilah Flores NP Diagnosis: PAF, SOB [facility] equipment agreement signed. EDUARDO understands monitor is to be returned on: 11/11/21 Monitor number [id number] applied. Procedure Holter monitor returned with diary and downloaded. Diagnosis/Problems Assessed Paroxysmal atrial fibrillation (427.31) (I48.0) Shortness of breath (786.05) (R06.02) Patient Discussion/Summary Patient underwent 24-hour Holter monitoring for history of paroxysmal atrial fibrillation and shortness of breath. The following observations are made: 1. Rhythm is sinus with heart rates ranging between 33 and 77 bpm. The average heart rate was 49 bpm. The longest pause was 2.1 seconds. 2. There were 532 isolated PVCs noted. 3. There were 471 supraventricular ectopic beats noted. They were predominantly isolated beats although there were 11 couplets. 4. The patient reported no symptoms in the diary. Signatures Electronically signed by : Jose Martin Jones MD; Nov 13 2021 5:17PM EST (Author) Normal [place] Office Visit (Cardiology)on 11-03-2021 Follow-up visit Diagnoses/Problems Assessed Paroxysmal atrial fibrillation (427.31) (I48.0) Flecainide d/c'd due to cardiomyopathy August 2021. Amiodarone initiated Sep 07, 2021 ECG in office SB/PAC, QTc 457 amiodarone 200mg daily Anticoagulated (V58.61) (Z79.01) CHADS VASc 5 low dose Eliquis Unable to tolerate full dose Eliquis due to persistant vaginal bleeding 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s (not anticoagulants) long-term use (V58.69) (Z79.899) Amiodarone start date Sep 07, 2021 Will arrange baseline testing Cardiomyopathy (425.4) (I42.9) HF improved EF 48% Sep 2021 MPI ( prior EF 30-35% August 2021 Echo AND 2013 45% - cath trivial disease) FC II Stage C GDMT: cozaar lopressor ( did not change to succinate d/t 90 day supply; EF improved) spironolactone Sep 07, 2021 Mild CAD (414.00) (I25.10) 2013 cardiac cath trivial CAD Sep 2021 MPI no ischemia Daily activity 4 METs without concerning symptoms Essential hypertension, benign (401.1) (I10) optimal in office Echocardiogram abnormal (793.2) (R93.1) August 2021 Echo LVEF 30-35% LA ULN peak 9 mean 5 Class 2 obesity with body mass index (BMI) of 39.0 to 39.9 in adult (278.00,V85.39) (E66.9,Z68.39) Reviewed the merits of healthy lifestyle choices on overall cardiovascular health. Orders Class 2 obesity with body mass index (BMI) of 39.0 to 39.9 in adult Healthy Weight Tips; Status:Complete; Done: [id number] Paroxysmal atrial fibrillation IO Holter Monitor up to 48 Hrs; Status:Complete; Done: [id number] Patient Instructions Please bring all medicines, vitamins, and herbal supplements with you when you come to the office. Prescriptions will not be filled unless you are compliant with your follow up appointments or have a follow up appointment scheduled as per instruction of your physician. Refills should be requested at the time of your visit. PLAN: Through informed decision making process incorporating patients unique circumstances, the following treatment plan will be initiated: 1. Prescription drug management of cardiovascular medication for efficacy, adherence to treatment, side effect assessment and polypharmacy. Current treatment clinically warranted and to continue without modifications. 2. 24 hour holter to verify daily heart rate 3. Return for follow-up; in the interim, contact the office if new symptoms arise. Dr. Jones Jan 2022 (patient request not to drive in snow) Chief Complaint Testing and medication changes: 'feeling better, breathing is better' EDUARDO HOWARD is being seen for cardiomyopathy, hypertension and a medication change. Last evaluated in clinic by myself Sep 2021. At that time started aldactone and amiodarone. Subsequent MPI no ischemia, LVEF 48%. Repeat K+ 4.3, Cr 1.27. She has been compliant with changes and presents today reporting 'one of the medicines are working, my breathing is much easier'. She ambulated in from [place] without complaints. Prior SANCHEZ with significant improvement Very rare POH No dizziness, near- syncope Recent testing reviewed. ECG in office SB/PAC. Denies fatigue, dizziness. BP borderline (138/86) and hesitant to reduce lopressor without more objective evidence. Will arrange baseline amiodarone surveillance Overall, she reports significant improvement in functional capacity with GDMT and maintenance of NSR. History of Present Illness The patient presents with non-ischemic heart failure with preserved ejection fraction. The patient's last LV ejection fraction was 30-48%%. The patient is NYHA functional Class II. This is stage C heart failure. Symptoms: denies lower extremity edema, improved dyspnea on exertion, stable fatigue, stable exercise intolerance, denies orthopnea and denies paroxysmal nocturnal dyspnea. Associated symptoms include recent 3 pounds weight loss. Medications: the patient is adherent with her medication regimen. She denies medication side effects. 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) Anticoagulated (V58.61) (Z79.01) Cardiomyopathy (425.4) (I42.9) Class 2 obesity with body mass index (BMI) of 39.0 to 39.9 in adult (278.00,V85.39) (E66.9,Z68.39) Echocardiogram abnormal (793.2) (R93.1) Essential hypertension, benign (401.1) (I10) 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s (not anticoagulants) long-term use (V58.69) (Z79.899) Mild CAD (414.00) (I25.10) Never a smoker Paroxysmal atrial fibrillation (427.31) (I48.0) Surgical History Problems History of Abdominal panniculectomy History of Biopsy History of Cardioversion History of Cataract surgery History of Cholecystectomy History of Colonoscopy Resolved Date: History of Gastric bypass surgery History of Gastric Surgery For Morbid Obesity Gastric Bypass History of Lithotripsy History of Oral surgery History of Tonsillectomy History of Tubal ligation Past Medical History Problems History of arthritis (V13.4) (Z87.39) History of hypertension (V12.59) (Z86.79) History (more content not included)... Normal [place] Tobacco Screening.on 022 Fall risk assessment a) No falls within the last year -[facility] 250 DO Work Phone: Tobacco use status CPHS b) No -[facility] [employer] [place] 250 DO Work Phone: [facility] CARDIAC STRESS/REST INJE CTIONon 09-21-2021 [facility] CARDIAC STRESS/REST INJECTION Patient Name: [place], [place] STUDY: MYOCARDIAL PERFUSION STRESS TEST WITH LEXISCAN Performing facility: [facility], [address] [place] [address], [address] Provider: Delilah Turner RN, HOT HEADER OPERATOR PCP: Dr. Shelia Wiseman Supervising provider: Delilah Turner RN, HOT HEADER OPERATOR INDICATION: A-fib Cardiomyopathy HISTORY: Gender: F; Age: 76 y/o ; Height: 0 cm; Weight: 0 kg. CAD; Family HX CAD; HTN; Arrhythmias; Denies smoking. COMPARISON: No comparison. ACCESSION NUMBER(S): [id number]; [id number]; [id number] ORDERING CLINICIAN: DELILAH TURNER TECHNIQUE: TWO DAY protocol. Stress injection: Date:09-21-21, 35.6 mCi of Myoview IV 20 seconds after rapid injection of Lexiscan. Rest injection: Date: 09-22-21, 34.7 mCi of Myoview IV at rest. The patient had a rapid injection of 0.4 mg of Lexiscan IV over 10 seconds. Imaging was performed by gated tomographic technique. Reason for Lexiscan: uses walker/cane STRESS TEST DATA: Resting heart rate was 68 BPM. Resting blood pressure was 122/80 mmHg. Peak blood pressure was 120/80 mmHg. Peak heart rate was 76 BPM. TEST TERMINATED DUE TO: Protocol completed FINDINGS: STRESS TEST RESULTS: Resting electrocardiogram revealed normal sinus rhythm. There were no significant ischemic ECG changes or dysrhythmias. The patient did not have chest pains/symptoms during procedure. There was a normal recovery phase. IMAGING RESULTS: Image quality was good. Rest and stress tomographic images were reviewed and revealed normal perfusion. There was no evidence of perfusion abnormality consistent with ischemia. There was no evidence of perfusion abnormality consistent with infarction. There was no left ventricular dilatation with stress. Overall left ventricular systolic function appeared to be abnormal. There was mild global hypokinesis . LVEF was 48%. TID is 0.86 and is normal. There was evidence of apical attenuation artifact. IMPRESSION: Abnormal Lexiscan Myoview cardiac perfusion stress test. No myocardial ischemia by perfusion imaging. No myocardial infarction by perfusion imaging. Abnormal left ventricular systolic function. Left ventricular ejection fraction 48 %. No previous studies are available for comparison. Electronically signed by: YVONNE HAAS MD Normal [facility] No Panel Informationon 09-21 Normal -[facility] [employer] [address] DO Work Phone: Office Visit (Cardiology)on 09-07-2021 Follow-up visit Diagnoses/Problems Assessed Cardiomyopathy (425.4) (I42.9) HFrEF 30-35% August 2021 Echo (2013 45% - cath trivial disease) FC IIb Stage C GDMT: cozaar lopressor add spironolactone today Paroxysmal atrial fibrillation (427.31) (I48.0) NSR in office Flecainide d/c'd due to cardiomyopathy Anticoagulated (V58.61) (Z79.01) CHADS VASc 5 low dose Eliquis Unable to tolerate full dose Eliquis due to persistant vaginal bleeding 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s (not anticoagulants) long-term use (V58.69) (Z79.899) Amiodarone to start today QTc 431 Discussed rationale behind amiodarone testing In agreement to start to mitigate atrial fib Essential hypertension, benign (401.1) (I10) optimal in office Mild CAD (414.00) (I25.10) 2013 cardiac cath trivial CAD Echocardiogram abnormal (793.2) (R93.1) August 2021 Echo LVEF 30-35% LA ULN peak 9 mean 5 Class 2 obesity with body mass index (BMI) of 39.0 to 39.9 in adult (278.00,V85.39) (E66.9,Z68.39) Reviewed the merits of healthy lifestyle choices on overall cardiovascular health. Orders Cardiomyopathy, Paroxysmal atrial fibrillation Start: Amiodarone HCl - 200 MG Oral Tablet; TAKE 1 TABLET DAILY Basic Metabolic Panel; Status:Active; Requested for:14Sep2021; Start: Spironolactone 25 MG Oral Tablet; TAKE 1 TABLET DAILY IO EKG Electrocardiogram- 12 Lead; Status:Active - Perform Order; Requested for:14Sep2021; NM Cardiac Stress/Rest Nuclear Med Order; Status:Hold For - Scheduling; Requested for:07Sep2021; Radiologist to Determine Optimal Study : Y What are the patient's signs and symptoms? : PAF, CM Class 2 obesity with body mass index (BMI) of 39.0 to 39.9 in adult Healthy Weight Tips; Status:Complete; Done: 07Sep2021 Unlinked Stop: Potassium Chloride Lori ER 20 MEQ Oral Tablet Extended Release Patient Instructions Please bring all medicines, vitamins, and herbal supplements with you when you come to the office. Prescriptions will not be filled unless you are compliant with your follow up appointments or have a follow up appointment scheduled as per instruction of your physician. Refills should be requested at the time of your visit. PLAN: Through informed decision making process incorporating patients unique circumstances, the following treatment plan will be initiated: 1. Prescription drug management of cardiovascular medication for efficacy, adherence to treatment, side effect assessment and polypharmacy. Current treatment clinically warranted and to continue with following modifications: - Begin amiodarone 200mg po daily (to keep heart normal rhythm) - Begin spironolactone 25mg daily (for weak heart muscle) - Stop potassium 2. ECG in one week 3. Chem6 in one week 4. Lexiscan MPI (CM) unable ambulate on treadmill due to SANCHEZ, knee pain and deconditioning 5. Return for follow-up; in the interim, contact the office if new symptoms arise. COLLECTIONS ATTORNEY after testing Chief Complaint No problems EDUARDO HOWARD is being seen for abnormal echo. Last evaluated in clinic Dr. Jones July 2021. F/U Echo LVEF 30-35%; presents today to optimize therapy. Her flecainide was stopped last week after Dr. Jones reviewed echo; she has been off flecainide 6 days. ECG in office today NSR, QTc 432. No pulmonary history (had PE Feb 1999) Overall 'feels fine' but does 'get winded easily' (years) Ambulating in from [place] (due to mask had difficulty) Uses 3 pillows (orthopnea 'difficult to breath' when flat). No PND No prior VINCENT testing ('its a made up disease') Daily activity: sedentary and likes to read HLD: PCP has annual labs, no prior treatment No diabetes PAF: Initial diagnosis in setting nephrolithiasis and additional occurrence with cholecystitis History of Present Illness The patient presents with non-ischemic heart failure with reduced ejection fraction. The patient's last LV ejection fraction was 30-35%. The patient is NYHA functional Class II. This is stage C heart failure. Symptoms: denies lower extremity edema, stable dyspnea on exertion, stable fatigue, stable exercise intolerance, stable orthopnea and denies paroxysmal nocturnal dyspnea. Associated symptoms include recent 4 pounds weight loss, but no chest pain. Home Monitoring: The patient is not checking weight at home. Medications: the patient is adherent with her medication regimen. She denies medication side effects. Surgical History Problems History of Abdominal panniculectomy History of Biopsy History of Cardioversion History of Cataract surgery History of Cholecystectomy History of Colonoscopy Resolved Date: History of Gastric bypass surgery History of Gastric Surgery For Morbid Obesity Gastric Bypass History of Lithotripsy History of Oral surgery History of Tonsillectomy History of Tubal ligation Past Medical History Problems History of arthritis (V13.4) (Z87.39) History of hypertension (V12.59) (Z86.79) History of renal calculi (V (more content not included)... Normal [place] Tobacco Screening.on 022 Adult depression screening assessment No [facility] [address] DO Work Phone: Fall risk assessment b) One or more fall s in the last year [facility] [address] DO Work Phone: Tobacco use status CPHS b) No [facility] [address] DO Work Phone: Echocardiogramon 07-25-2022 [facility] [address], [address], [place] [id number] TRANSTHORACIC ECHOCARDIOGRAM REPORT Patient Name: EDUARDO Desai Physician: [id number] Jose Martin HOWARD MD Study Date: 08/31/2021 Referring [id number] JOSE MARTIN JONES Physician: MRN/PID: [id number] PCP: Andrei Wiseman Accession/Order#: [id number] Department [facility] Location: [place] Date of : 1945 Fellow: Gender: F Nurse: Misti Lopez RN Admit Date: Front Office Java Developer: Taty Allen RDCS, RVT Height: 170.18 cm CC Report to: Weight: 112.95 kg Study Type: Echocardiogram BSA: 2.22 m2 Blood Pressure: 144 /88 mmHg Diagnosis/ICD: I42.9-Cardiomyopathy, unspecified; Y99-Bjmxzhber (primary) hypertension; I48.0-Paroxysmal atrial fibrillation Indication: Family History of CAD, Obesity Procedure/CPT: Echo Complete w Full Doppler-[id number] Study Detail: The following Echo studies were performed: 2D, M-Mode, Doppler and color flow. Optison used as a contrast agent for endocardial border definition. Total contrast used for this procedure was 0.7 mL via IV push. PHYSICIAN INTERPRETATION: Left Ventricle: The left ventricular systolic function is severely decreased, with an estimated ejection fraction of 30-35%. There is global hypokinesis of the left ventricle with minor regional variations. The left ventricular cavity size is normal. The left ventricular septal wall thickness is moderately increased. Spectral Doppler shows an impaired relaxation pattern of left ventricular diastolic filling. Left Atrium: The left atrium is upper limits of normal in size. Right Ventricle: The right ventricle is slightly enlarged. There is normal right ventricular global systolic function. Right Atrium: The right atrium is normal in size. Aortic Valve: The aortic valve is trileaflet. There is evidence of mildly elevated transaortic gradients consistent with sclerosis of the aortic valve. There is mild aortic valve regurgitation. The peak instantaneous gradient of the aortic valve is 9.0 mmHg. The mean gradient of the aortic valve is 5.0 mmHg. Mitral Valve: The mitral valve is mildly thickened. There is trace mitral valve regurgitation. Tricuspid Valve: The tricuspid valve is structurally normal. There is trace tricuspid regurgitation. Pulmonic Valve: The pulmonic valve is not well visualized. There is no indication of pulmonic valve regurgitation. Pericardium: There is no pericardial effusion noted. Aorta: The aortic root is normal. CONCLUSIONS: 1. The left ventricular systolic function is severely decreased with a 30-35% estimated ejection fraction. 2. Moderately increased left ventricular septal thickness. 3. Spectral Doppler shows an impaired relaxation pattern of left ventricular diastolic filling. 4. Aortic valve sclerosis. 5. There is mild aortic valve regurgitation. 6. There is global hypokinesis of the left ventricle with minor regional variations. QUANTITATIVE DATA SUMMARY: 2D MEASUREMENTS: Normal Ranges: Ao Root d: 3.60 cm (2.0-3.7cm) LAs: 3.60 cm (2.7-4.0cm) RVIDd: 3.40 cm (0.9-3.6cm) IVSd: 1.50 cm (0.6-1.1cm) LVPWd: 1.00 cm (0.6-1.1cm) LVIDd: 3.60 cm (3.9-5.9cm) LVIDs: 2.50 cm LV Mass Index: 67.9 g/m2 LV % FS 30.6 % LV SYSTOLIC FUNCTION BY 2D PLANIMETRY (MOD): Normal Ranges: EF-A4C View: 40.5 % (>55%) LV DIASTOLIC FUNCTION: Normal Ranges: MV Peak E: 0.82 m/s (0.7-1.2 m/s) MV Peak A: 1.06 m/s (0.42-0.7 m/s) E/A Ratio: 0.78 (1.0-2.2) MV lateral e' 0.07 m/s MV medial e' 0.04 m/s E/e' Ratio: 11.40 (<8.0) MITRAL VALVE: Normal Ranges: MV Vmax: 1.30 m/s (<1.3m/s) MV peak P.8 mmHg (<5mmHg) MV mean P.0 mmHg (<48mmHg) MITRAL INSUFFICIENCY: Normal Ranges: MR Vmax: 528.00 cm/s dP/dt: 628 mmHg/s (>1200mmHg/sec) AORTIC VALVE: Normal Ranges: AoV Vmax: 1.50 m/s (<1.7m/s) AoV Peak P.0 mmHg (<20mmHg) AoV Mean P.0 mmHg (1.7-11.5mmHg) LVOT Max Kristie: 0.71 m/s (<1.1m/s) AoV VTI: 27.70 cm (18-25cm) LVOT VTI: 15.70 cm LVOT Diameter: 2.20 cm (1.8-2.4cm) AoV Area, VTI: 2.15 cm2 (2.5-5.5cm2) AoV Area,Vmax: 1.81 cm2 (2.5-4.5cm2) AoV Dimensionless Index: 0.57 AORTIC INSUFFICIENCY: AI Vmax: 4.22 m/s AI Half-time: 438 msec AI Decel Rate: 282.00 cm/s2 TRICUSPID VALVE/RVSP: Normal Ranges: Peak TR Velocity: 2.52 m/s RV Syst Pressure: 28 mmHg (< 30mmHg) PULMONIC VALVE: Normal Ranges: PV Max Kristie: 0.5 m/s (0.6-0.9m/s) PV Max P.2 mmHg [id number] Jose Martin Jones MD Electronically signed on 08/31/2021 at 6:01:31 PM Final Normal [facility] Falls Screening (Age 18+)on 08-31-2021 Fall risk assessment a) No falls within the last year [facility] [email or web address] [address] [place] Work Phone: Office Visit (Cardiology)on 07-22-2021 Follow-up visit Diagnoses/Problems Assessed Cardiomyopathy (425.4) (I42.9) Paroxysmal atrial fibrillation (427.31) (I48.0) Essential hypertension, benign (401.1) (I10) Class 2 obesity with body mass index (BMI) of 39.0 to 39.9 in adult (278.00,V85.39) (E66.9,Z68.39) Never a smoker Orders Cardiomyopathy, Essential hypertension, benign, Paroxysmal atrial fibrillation Echocardiogram; Status:Hold For - Scheduling,Retrospective Authorization; Requested for:22Jul2021; Class 2 obesity with body mass index (BMI) of 39.0 to 39.9 in adult Healthy Weight Tips; Status:Complete - Retrospective Authorization; Done: 22Jul2021 Paroxysmal atrial fibrillation Stop: Sotalol HCl - 80 MG Oral Tablet IO EKG Electrocardiogram- 12 Lead; Status:Complete - Retrospective Authorization; Done: 22Jul2021 Start: Eliquis 2.5 MG Oral Tablet; one twice daily IO EKG Electrocardiogram- 12 Lead; Status:Complete - Retrospective Authorization; Done: 22Jul2021 SocHx: Never a smoker Tobacco Use Screening; Status:Complete; Done: 22Jul2021 Unlinked Stop: Eliquis 5 MG Oral Tablet Stop: Metoprolol Tartrate 100 MG Oral Tablet Patient Instructions By signing my name below, IMimi RN,Scribe Please bring all medicines, vitamins, and herbal supplements with you when you come to the office. Prescriptions will not be filled unless you are compliant with your follow up appointments or have a follow up appointment scheduled as per instruction of your physician. Refills should be requested at the time of your visit .FU AFTER TESTING Chief Complaint SELF REFERRAL RE-ESTABLISH ISSUE WITH MEDS. History of Present Illness Patient is referred for management after long absence. In the past she was found to have trivial coronary atherosclerosis and mild impairment of left ventricular systolic function. Subsequently, though, she was lost to follow-up and she has been getting her care in [facility] from the [place] [facility] group Recently, her inside parts sales became ill and she has not had any continuity of care ever since. She had been plagued by paroxysmal atrial fibrillation and it appears that the attending inside parts sales placed her on flecainide. This would lead me to suspect she had no manifestations of coronary disease or cardiomyopathy and it sounds like the arrhythmia control has been good. Interestingly they also placed her on Eliquis therapy and she has significant problems with recurrent vaginal bleeding on this agent. It was stopped and resumed at 50% with no problems but once again a different caregiver recommended full dose Eliquis and she bled again. She wishes my advice. I advised her that maintenance of sinus rhythm reduces her risk of stroke. I also suggested any antithrombotic therapy will further reduce risk of stroke. Not been on full dose antithrombotic therapy, does leave some residual risk for stroke albeit small I suggested to her we would probably have to find a compromise to her management because absolute implementation of aggressive therapy is obviously not tolerable. Along the lines of the vaginal bleeding she underwent extensive gynecologic evaluation with no findings and because of this it appears that any correctable cause has not been identified and there is nothing to intervene upon and because of this we will need to adjust her antithrombotic therapy downward. After discussing the concept of relative risk versus benefit she appears comfortable with our recommendation and because of this she will continue flecainide, continue Eliquis at a low dose, and we recommend an echocardiogram to make certain that her cardiomyopathy is gone and resolved because of the fact that she is on flecainide therapy. She will follow-up in the near future when the results of the echo are available. I did advocate the merits of diet and weight loss in the interim. Surgical History Problems History of Abdominal panniculectomy History of Biopsy History of Cardioversion History of Cataract surgery History of Cholecystectomy History of Colonoscopy Resolved Date: History of Gastric bypass surgery History of Gastric Surgery For Morbid Obesity Gastric Bypass History of Lithotripsy History of Oral surgery History of Tonsillectomy History of Tubal ligation Past Medical History Problems History of arthritis (V13.4) (Z87.39) History of hypertension (V12.59) (Z86.79) History of renal calculi (V13.01) (Z87.442) Current Meds Medication NameInstruction Eliquis 5 MG Oral TabletTake 1 tablet twice daily Flecainide Acetate 50 MG Oral TabletTAKE 1 TABLET TWICE DAILY. Losartan Potassium 100 MG Oral TabletTAKE 1 TABLET DAILY. Metoprolol Tartrate 100 MG Oral TabletTAKE 1 TABLET TWICE DAILY. Metoprolol Tartrate 100 MG Oral TabletTAKE 1 TABLET TWICE DAILY. Pantoprazole Sodium 40 MG Oral Tablet Delayed ReleaseTAKE 1 TABLET DAILY. Potassium Chloride Lori ER 20 MEQ Oral Tablet Extended ReleaseTAKE 1 TABLET DAILY. Zyrtec 10 MG TABSTAKE (more content not included)... Normal [place] Tobacco Screening.on 022 Adult depression screening assessment No [facility] [address] DO Work Phone: Fall risk assessment a) No falls within the last year [facility] [address] DO Work Phone: Tobacco use status CPHS b) No [facility] [employer] DO Work Phone: Adult depression screening assessment No [facility] [address] 250 DO Work Phone: Fall risk assessment a) No falls within the last year [facility] [employer] 250 DO Work Phone: Tobacco use status CPHS b) No [facility] [email or web address] [address] DO Work Phone: PROTIMEon 12-04-2020 INR Coag (PPP) [Relative time] 0.98 {INR} Normal [facility] Comment on above: Performed By: #### P TT, PT #### [facility] [address] [place] [address] Dr. Soniya Qureshi INR GUIDELINES SEE BELOW Normal [facility] Comment on above: Result Comment: JAVED RED INR: 2.0 - 3.0 CONDITIONS NOT LISTED BELOW 2.5 - 3.5 FOR PROSTHETIC HEART VALVE REPLACEMENT 2.5 - 3.5 RECURRENT THROMBOSIS Performed By: #### P TT, PT #### [facility] [address] [place] [address] Dr. Soniya Qureshi PT Coag (PPP) [Time] 10.6 s Normal 9.0-11.6 [facility] Comment on above: Performed By: #### P TT, PT #### [facility] [address] [place] [address] Dr. Soniya Qureshi PTTon 12-04-2020 aPTT Coag (Bld) [Time] 25.4 s Normal 22.3-36.2 [facility] Comment on above: Performed By: #### P TT, PT #### [facility] [address] [place] [address] Dr. Soniya Qureshi XR KUB 1 VIEWon 12-04-2020 XR KUB 1 VIEW EXAMINATION: XR KUB 1 VIEW HISTORY: Urolithiasis COMPARISON: XR KUB 11/13/2020 FINDINGS: KIDNEY/URETER - RIGHT: Calcifications within inferior pole of kidney which appear fragmented compared to prior study. Stable appearance of a few tiny calcifications projecting over the right sacrum; vascular calcifications are suspected; ureteral stones are less likely. KIDNEY/URETER - LEFT: No visible renal or ureteral calcifications. PELVIS: No visible ureteral calcifications. Any visible calcifications favor phleboliths. BOWEL: No abnormal dilation or deviation. BONES: No acute abnormality. OTHER: Negative. No abnormal gaseous collections. IMPRESSION: 1. Right nephrolithiasis with fragmentation appearance of previously seen stones. Electronically authenticated by: MARGARET ROMAN Date: 2020-12-04 07:13 Normal [facility] Covid-19 PCR ([facility])on 11-08 SARS-CoV-2 (COVID-19) RNA HÉCTOR+probe Ql (Unsp spec) Not detected Normal NOT DETECTED [facility] Comment on above: Result Comment: This test is not yet approved or cleared by the [place] FDA. When there are no FDA-approved or cleared tests available, and other criteria are met, FDA can make tests available under an emergency access mechanism called an Emergency Use Authorization (EUA). The EUA for this test is supported by the [place] of Health and Human Service's (HHS's) declaration that circumstances exist to justify the emergency use of in vitro diagnostics for the detection and/or diagnosis of the virus that causes COVID-19. This EUA will remain in effect (meaning this test can be used) for the duration of the COVID-19 declaration justifying emergency of IVDs, unless it is terminated or revoked by FDA (after which the test may no longer be used). When diagnostic testing is negative, the possibility of a false negative should be considered in the context of a patient's recent exposures and the presence of clinical signs and symptoms consistent with SARS-CoV-2. Performed By: #### [facility] #### [facility] [address] [place] [address] Dr. Soniya Qureshi XR KUB 1 VIEWon 11-13-2020 XR KUB 1 VIEW EXAMINATION: XR KUB 1 VIEW HISTORY: Kidney stone COMPARISON: 09/15/2020 FINDINGS: KIDNEY/URETER - RIGHT: Multiple nephroliths project over the lower pole of the right kidney KIDNEY/URETER - LEFT: No visible renal or ureteral calcifications. PELVIS: No visible ureteral calcifications. Any visible calcifications favor phleboliths. BOWEL: No abnormal dilation or deviation. BONES: No acute abnormality. Stable degenerative changes of the spine and hips OTHER: Right upper quadrant surgical clips from cholecystectomy IMPRESSION: Stable right nephrolithiasis Electronically authenticated by: ANDREI MERCADO Date: 2020-11-13 07:52 Normal [facility] Covid-19 PCR (CVDTB)on SARS-CoV-2 (COVID-19) RNA HÉCTOR+probe Ql (Unsp spec) Not detected Normal NOT DETECTED [facility] Comment on above: Result Comment: This test is not yet approved or cleared by the [place] FDA. When there are no FDA-approved or cleared tests available, and other criteria are met, FDA can make tests available under an emergency access mechanism called an Emergency Use Authorization (EUA). The EUA for this test is supported by the [place] of Health and Human Service's (HHS's) declaration that circumstances exist to justify the emergency use of in vitro diagnostics for the detection and/or diagnosis of the virus that causes COVID-19. This EUA will remain in effect (meaning this test can be used) for the duration of the COVID-19 declaration justifying emergency of IVDs, unless it is terminated or revoked by FDA (after which the test may no longer be used). When diagnostic testing is negative, the possibility of a false negative should be considered in the context of a patient's recent exposures and the presence of clinical signs and symptoms consistent with SARS-CoV-2. Performed By: #### C VDTBH #### [facility] [address] [place] [address] Dr. Soniya Qureshi PROTIMEon 11-06-2020 INR Coag (PPP) [Relative time] 1.07 {INR} Normal [facility] Comment on above: Performed By: #### P T, PTT #### [facility] [address] [place] [address] Dr. Soniya Qureshi INR GUIDELINES SEE BELOW Normal [facility] Comment on above: Result Comment: JAVED RED INR: 2.0 - 3.0 CONDITIONS NOT LISTED BELOW 2.5 - 3.5 FOR PROSTHETIC HEART VALVE REPLACEMENT 2.5 - 3.5 RECURRENT THROMBOSIS Performed By: #### P T, PTT #### [facility] [address] [place] [address] Dr. Soniya Qureshi PT Coag (PPP) [Time] 11.5 s Normal 9.0-11.6 [facility] Comment on above: Performed By: #### P T, PTT #### [facility] [address] [place] [address] [address] Soniya Qureshi PTTon 11-06-2020 aPTT Coag (Bld) [Time] 27.4 s Normal 22.3-36.2 Th e [facility] Comment on above: Performed By: #### P T, PTT #### [facility] [address] [place] [address] [address] Soniya Qureshi CNPNon 11-04-2020 CNPN Telephone ([place]) -- HERNANDO HOWARD ([id number]) 1945 F Date Time Provider Department 11/04/20 PHIL BROOKS During your visit today, we recorded the following information about you: Raina Diaz RN 11/04/2020 11:50 AM Signed Michelle from Dr Saleem called requesting notes from Dr Brooks visit as they are awaiting surgical clearance. Note was faxed to Dr Saleem office. Raina Diaz RN Allergies As of Date: 11/04/2020 Noted Allergy Reaction ASPIRIN 10/07/2020 14 - Other: See Comments Comments: Ulcers CODEINE 08/26/2011 14 - Other: See Comments Comments: nausea nausea IBUPROFEN 10/07/2020 14 - Other: See Comments Comments: Ulcers MORPHINE 08/26/2011 14 - Other: See Comments Comments: nausea nausea Narcotics (OPIOIDS - MORPHINE CHARLEE*10/07/2020 14 - Other: See Comments Date Reviewed: 10/07/2020 Reviewed by: Nani Ruth - Fully Assessed Reason for Visit: Request Outside Medical Records [[id number]] Prescriptions as of 11/04/2020 - metoprolol tartrate, short acting, (LOPRESSOR) 100 mg tablet TAKE 1 AND 1/2 TABLET BY MOUTH TWO TIMES A DAY - pantoprazole DR (PROTONIX) 40 mg tablet TAKE ONE TABLET BY MOUTH TWICE A DAY - potassium chloride ER (KLOR-CON M20) 20 mEq tablet TAKE ONE TABLET BY MOUTH DAILY - flecainide (TAMBOCOR) 50 mg tablet Take 50 mg by mouth. - apixaban (ELIQUIS) 5 mg tab(s) 1 tab BID - furosemide (LASIX) 40 mg tablet TAKE ONE TABLET BY MOUTH DAILY - losartan (COZAAR) 100 mg tablet TAKE ONE TABLET BY MOUTH DAILY - cetirizine (ZYRTEC) 10 mg tablet Take 10 mg by mouth. Problem List As Of Date: 11/04/2020 (None) Encounter Status:Closed by RAINA DIAZ on 11/04/20 [facility] CNOVSPon 10-07-2020 CNOVSP Visit () Office ( [facility]) -- HERNANDO HOWARD ([id number]) 1945 F Date Time Provider Department 10/07/20 11:15 AM PHIL BROOKS During your visit today, we recorded the following information about you: Temperature Pulse Respiration Blood pressure 96.7 degrees 75/minute 16/minute 160/87 Weight Height 115.6 kg 1.689 m Phil Brooks MD 10/07/2020 10:56 PM Signed PATIENT NAME: Hernando Howard CLINIC NO.: [id number] ATTENDING PHYSICIAN: Phil Brooks MD DATE OF SERVICE: October 07, [address] Allyson Saleem thank you for referring Mrs. Hernando Howard for an opinion regarding history of pulmonary embolism. CHIEF COMPLAINT: I had blood clots and now needs surgery HPI: Hernando Howard is a 75 year old year old female with past medical history significant for hypertension who in early January 2019 developed cholecystitis. During that episode patient subsequently also developed atrial fibrillation. Patient was placed on Eliquis. Subsequently underwent cholecystectomy. Shortly thereafter developed upper GI bleed. Readmitted to the hospital taken off anticoagulation. Upper endoscopy with some erosions which per patient were treated and he further did not have any additional GI bleeds. Few days after this episode patient developed increasing shortness of breath and imaging studies February 2019 demonstrated pulmonary emboli. Patient was restarted back on Eliquis which she continues on the state. Patient subsequent underwent cardioversion as well for atrial fibrillation and per cardiology has been continued on Eliquis for atrial fibrillation. Patient has a history of nephrolithiasis and has undergone multiple lithotripsies in the past and will require another procedure shortly and urology has referred patient here for management of her anticoagulation. She denies any previous history of thromboembolism. She also denies any family history of thromboembolism. Current Outpatient Medications Medication Sig - metoprolol tartrate, short acting, (LOPRESSOR) 100 mg tablet TAKE 1 AND 1/2 TABLET BY MOUTH TWO TIMES A DAY - pantoprazole DR (PROTONIX) 40 mg tablet TAKE ONE TABLET BY MOUTH TWICE A DAY - potassium chloride ER (KLOR-CON M20) 20 mEq tablet TAKE ONE TABLET BY MOUTH DAILY - flecainide (TAMBOCOR) 50 mg tablet Take 50 mg by mouth. - apixaban (ELIQUIS) 5 mg tab(s) 1 tab BID - furosemide (LASIX) 40 mg tablet TAKE ONE TABLET BY MOUTH DAILY - losartan (COZAAR) 100 mg tablet TAKE ONE TABLET BY MOUTH DAILY - cetirizine (ZYRTEC) 10 mg tablet Take 10 mg by mouth. No current facility-administered medications for this visit. ALLERGIES Allergen Reactions - Aspirin Other: See Comments Ulcers - Codeine Other: See Comments nausea nausea - Ibuprofen Other: See Comments Ulcers - Morphine Other: See Comments nausea nausea - Narcotics [Opioids * Other: See Comments PAST MEDICAL HISTORY Diagnosis Date - Anticoagulant long-term use - Atrial fibrillation (HCC) - DVT (deep venous thrombosis) (HCC) - Elevated d-dimer - Hypertension - Kidney stones - Pulmonary embolism (HCC) PAST SURGICAL HISTORY Procedure Laterality Date - LIGATE FALLOPIAN TUBE 1977 - PANNICULECTOMY 01/2005 - REMOVAL GALLBLADDER 2018 - REMV CATARACT EXTRACAP,INSERT LENS 2016 - ARIANNE-EN-Y GASTRIC BYPASS COLONIC CONDUIT - SCREENING COLONSCOPY NOT HIGH RISK 2002, 2007 - TONSILLECTOMY HX 1949 FAMILY HISTORY Problem Relation Age of Onset - Colon Cancer Mother - Diabetes Father - Heart disease Father Social History Tobacco Use - Smoking status: Never Smoker - Smokeless tobacco: Never Used Vaping Use - Vaping Use: Never used Substance Use Topics - Alcohol use: Not on file - Drug use: Never REVIEW OF SYSTEMS GENERAL: No weight loss, malaise or fevers. No night sweats. HEENT: Negative for headaches, No changes in hearing or vision, no nose bleeds or other nasal problems. RESPIRATORY: Negative for cough, wheezing and shortness of breath CARDIOVASCULAR: Negative for chest pain, leg swelling and palpitations GI: Negative for abdominal discomfort, blood in stools or black stools and change in bowel habits : Negative for dysuria, frequency and incontinence MUSCULOSKELETAL: Negative for joint pain or swelling, back pain, and muscle pain. SKIN: Negative for lesions, rash, and itching. HEMATOLOGY/LYMPHOLOGY Negative for prolonged bleeding, bruising easily, and swollen nodes. NEURO: Negative for numbness or tingling of hands/feet. No weakness. PHYSICAL EXAMINATION: BP 160/87 Pulse 75 Temp (!) 35.9 ?C (96.7 ?F) (Temporal) Resp 16 Ht 168.9 cm (5' 6.5 ) Wt 115.6 kg (254 lb 12.8 oz) SpO2 95% BMI 40.51 kg/m? Wt 115.6 kg (254 lb 12.8 oz) BMI 40.51 kg/m2 Last 3 Encounter Wt Readings: Date: Wt: 10/07/2020 115.6 kg (254 lb 12.8 oz) General a (more content not included)... Normal [facility] XR KUB 1 VIEWon 09-15-2020 XR KUB 1 VIEW EXAMINATION: XR KUB 1 VIEW HISTORY: Kidney stone COMPARISON: XR KUB 07/19/2019 FINDINGS: KIDNEY/URETER - RIGHT: 2 prominent stones within the right kidney, 7 mm and 5 mm respectively. A few tiny stones suspected. KIDNEY/URETER - LEFT: No visible renal or ureteral calcifications. PELVIS: 2 mm bone projecting over superior aspect of right sacrum which may represent a mid ureteral stone. Stable pelvic calcifications compatible with phleboliths and atherosclerotic disease. BOWEL: No abnormal dilation or deviation. BONES: No acute abnormality. OTHER: Bowel sutures within left abdomen. IMPRESSION: 1. Right nephrolithiasis and possible mid right ureteral stone. Electronically authenticated by: MARGARET ROMAN Date: 2020-09-15 14:42 Normal [facility] Vital Signs Date Time Vital Sign Value Performing Clinician Facility 08-08-2024 13:07-0400 Body height 163.8 cm Jerome Quick MD Work Phone: [facility] 08-08-2024 13:07-0400 Body mass index (BMI) [Ratio] 33.63 kg/m2 Jerome Quick MD Work Phone: [facility] 08-08-2024 13:07-0400 Body weight 90.27 kg Jerome Quick MD Work Phone: [facility] 08-08-2024 13:07-0400 Diastolic blood pressure 80 mm[Hg] Jerome Quick MD Work Phone: [facility] 08-08-2024 13:07-0400 Heart rate 72 /min Jerome Quick MD Work Phone: [facility] 08-08-2024 13:07-0400 Respiratory rate 18 /min Jerome Quick MD Work Phone: [facility] 08-08-2024 13:07-0400 SaO2% (BldA) [Mass fraction] 98 % Jerome Quick MD Work Phone: [facility] 08-08-2024 13:07-0400 Systolic blood pressure 108 mm[Hg] Jerome Quick MD Work Phone: [facility] 08-01-2024 11:06-0400 Body height 167.6 cm [facility] 08-01-2024 11:06-0400 Body mass index (BMI) [Ratio] 32.35 kg/m2 [facility] 08-01-2024 11:06-0400 Body weight 90.9 kg [facility] 08-01-2024 11:06-0400 Diastolic blood pressure 86 mm[Hg] [facility] 08-01-2024 11:06-0400 Heart rate 75 /min [facility] 08-01-2024 11:06-0400 Systolic blood pressure 142 mm[Hg] [facility] 07-26-2024 15:47-0400 Body mass index (BMI) [Ratio] 32.6 kg/m2 Jerome Quick MD Work Phone: [facility] 07-26-2024 15:47-0400 Body temperature 97.9 [degF] Jerome Quick MD Work Phone: [facility] 07-26-2024 15:47-0400 Body weight 91.63 kg Jerome Quick MD Work Phone: [facility] 07-26-2024 15:47-0400 Diastolic blood pressure 60 mm[Hg] Jerome Quick MD Work Phone: [facility] 07-26-2024 15:47-0400 Heart rate 70 /min Jerome Quick MD Work Phone: [facility] 07-26-2024 15:47-0400 Respiratory rate 20 /min Jerome Quick MD Work Phone: [facility] 07-26-2024 15:47-0400 SaO2% (BldA) [Mass fraction] 95 % Jerome Quick MD Work Phone: [facility] 07-26-2024 15:47-0400 Systolic blood pressure 110 mm[Hg] Jerome Quick MD Work Phone: [facility] 07-25-2024 10:24-0400 Body height 167.6 cm Yvonen Haas MD Work Phone: [facility] 07-25-2024 10:24-0400 Body mass index (BMI) [Ratio] 32.73 kg/m2 Yvonne Haas MD Work Phone: [facility] 07-25-2024 10:24-0400 Body weight 91.99 kg Yvonne Haas MD Work Phone: [facility] 07-25-2024 10:24-0400 Diastolic blood pressure 76 mm[Hg] Yvonne Haas MD Work Phone: [facility] 07-25-2024 10:24-0400 Heart rate 76 /min Yvonne Haas MD Work Phone: [facility] 07-25-2024 10:24-0400 Systolic blood pressure 122 mm[Hg] Yvonne Haas MD Work Phone: [facility] 12-14-2023 12:21-0500 Body height 167.[address] 12-14-2023 12:21-0500 Body mass index (BMI) [Ratio] 33.73 kg/m2 [address] 12-14-2023 12:21-0500 Body weight 94.[address] 12-14-2023 12:21-0500 Diastolic blood pressure 84 mm[Hg] [address] 12-14-2023 12:21-0500 Systolic blood pressure 130 mm[Hg] [address] 12-13-2023 10:37-0500 Diastolic blood pressure 75 mm[Hg] Yvonne Haas MD Work Phone: [facility] 12-13-2023 10:37-0500 Systolic blood pressure 130 mm[Hg] Yvonne Haas MD Work Phone: [facility] 12-13-2023 09:55-0500 Body height 167.6 cm Yvonne Haas MD Work Phone: [facility] 12-13-2023 09:55-0500 Body mass index (BMI) [Ratio] 33.73 kg/m2 Yvonne Haas MD Work Phone: [facility] 12-13-2023 09:55-0500 Body weight 94.8 kg Yvonne Haas MD Work Phone: [facility] 12-13-2023 09:55-0500 Heart rate 87 /min Yvonne Haas MD Work Phone: [facility] 12-01-2023 16:49-0400 Diastolic blood pressure 64 mm[Hg] MD Andrei Wiseman Work Phone: [facility] 12-01-2023 16:49-0400 Heart rate 62 /min MD Andrei Wiseman Work Phone: [facility] 12-01-2023 16:49-0400 Respiratory rate 22 /min MD Andrei Wiseman Work Phone: [facility] 12-01-2023 16:49-0400 SaO2% (BldA) [Mass fraction] 95 % MD Andrei Wiseman Work Phone: [facility] 12-01-2023 16:49-0400 Systolic blood pressure 139 mm[Hg] MD Andrei Wiseman Work Phone: [facility] 12-01-2023 13:02-0400 Body height 167.64 cm MD Andrei Wiseman Work Phone: [facility] 12-01-2023 13:02-0400 Body temperature 97.9 [degF] MD Andrei Wiseman Work Phone: [facility] 12-01-2023 13:02-0400 Body weight 94 kg MD Andrei Wiseman Work Phone: [facility] 09-16-2023 10:18-0400 Blood Pressure Location Allyson SALEEM [facility] 09-16-2023 10:18-0400 Diastolic blood pressure 78 mm[Hg] Allyson SALEEM [facility] 09-16-2023 10:18-0400 Heart rate 80 /min Allyson SALEEM [facility] 09-16-2023 10:18-0400 Respiratory rate 16 /min Allyson SALEEM [facility] 09-16-2023 10:18-0400 Systolic blood pressure 136 mm[Hg] Allyson SALEEM [facility] 08-04-2023 09:31-0400 Body height 167.6 cm Andrei Wiseman MD Work Phone: [facility] 08-04-2023 09:31-0400 Body mass index (BMI) [Ratio] 33.25 kg/m2 Andrei Wiseman MD Work Phone: [facility] 08-04-2023 09:31-0400 Body temperature 97.59 [degF] Andrei Wiseman MD Work Phone: [facility] 08-04-2023 09:31-0400 Body weight 93.44 kg Andrei Wiseman MD Work Phone: [facility] 08-04-2023 09:31-0400 Diastolic blood pressure 80 mm[Hg] Andrei Wiseman MD Work Phone: [facility] 08-04-2023 09:31-0400 Heart rate 68 /min Andrei Wiseman MD Work Phone: [facility] 08-04-2023 09:31-0400 Respiratory rate 16 /min Andrei Wiseman MD Work Phone: [facility] 08-04-2023 09:31-0400 Systolic blood pressure 128 mm[Hg] Andrei Wiseman MD Work Phone: [facility] 03-01-2023 12:13-0500 Body height 167.6 cm Delilah Turner APRN-HOT HEADER OPERATOR Work Phone: [facility] 03-01-2023 12:13-0500 Body mass index (BMI) [Ratio] 33.73 kg/m2 Delilah Turner APRN-HOT HEADER OPERATOR Work Phone: [facility] 03-01-2023 12:13-0500 Body weight 94.8 kg Delilah Turner 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 Work Phone: [facility] 03-01-2023 12:13-0500 Diastolic blood pressure 70 mm[Hg] Delilah Turner 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 Work Phone: [facility] 03-01-2023 12:13-0500 Heart rate 64 /min Delilah Turner 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 Work Phone: [facility] 03-01-2023 12:13-0500 Systolic blood pressure 108 mm[Hg] Delilah Turner 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 Work Phone: [facility] 02-21-2023 10:19-0500 Body height 167.6 cm Delilah Turner 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 Work Phone: [facility] 02-21-2023 10:19-0500 Body mass index (BMI) [Ratio] 33.89 kg/m2 Delilah Turner 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 Work Phone: [facility] 02-21-2023 10:19-0500 Body weight 95.25 kg Delilah Turner 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 Work Phone: [facility] 02-21-2023 10:19-0500 Diastolic blood pressure 84 mm[Hg] Delilah Turner 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 Work Phone: [facility] 02-21-2023 10:19-0500 Heart rate 31 /min Delilah Turner 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 Work Phone: [facility] 02-21-2023 10:19-0500 Systolic blood pressure 128 mm[Hg] Delilah Turner 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 Work Phone: [facility] 02-01-2023 09:40-0500 Body height 167.6 cm Andrei Wiseman MD Work Phone: [facility] 02-01-2023 09:40-0500 Body mass index (BMI) [Ratio] 34.3 kg/m2 Andrei Wiseman MD Work Phone: [facility] 02-01-2023 09:40-0500 Body weight 96.39 kg Andrei Wiseman MD Work Phone: [facility] 02-01-2023 09:40-0500 Diastolic blood pressure 84 mm[Hg] Andrei Wiseman MD Work Phone: [facility] 02-01-2023 09:40-0500 Heart rate 60 /min Andrei Wiseman MD Work Phone: [facility] 02-01-2023 09:40-0500 Respiratory rate 16 /min Andrei Wiseman MD Work Phone: [facility] 02-01-2023 09:40-0500 Systolic blood pressure 122 mm[Hg] Andrei Wiseman MD Work Phone: [facility] 01-21-2023 10:43-0500 Body height 167.[address] 01-21-2023 10:43-0500 Body mass index (BMI) [Ratio] 34.54 kg/m2 [address] 01-21-2023 10:43-0500 Body weight 97.[address] 01-21-2023 10:43-0500 Diastolic blood pressure 84 mm[Hg] [address] 01-21-2023 10:43-0500 Systolic blood pressure 140 mm[Hg] [address] 01-17-2023 09:27-0500 Body height 167.6 cm Delilah Turner 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 Work Phone: [facility] 01-17-2023 09:27-0500 Body mass index (BMI) [Ratio] 34.54 kg/m2 Delilah Turner APRN-HOT HEADER OPERATOR Work Phone: [facility] 01-17-2023 09:27-0500 Body weight 97.07 kg Delilah Turner APRN-HOT HEADER OPERATOR Work Phone: [facility] 01-17-2023 09:27-0500 Diastolic blood pressure 80 mm[Hg] Delilah Turner 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 Work Phone: [facility] 01-17-2023 09:27-0500 Heart rate 46 /min Delilah Turner 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 Work Phone: [facility] 01-17-2023 09:27-0500 Systolic blood pressure 142 mm[Hg] Delilah Turner 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 Work Phone: [facility] 09-13-2022 10:27-0400 Blood Pressure Location Allyson SALEEM [facility] 09-13-2022 10:27-0400 Diastolic blood pressure 80 mm[Hg] Allysonrula SALEEM [facility] 09-13-2022 10:27-0400 Heart rate 78 /min Allysonrula SALEEM [facility] 09-13-2022 10:27-0400 Respiratory rate 16 /min Allyson SALEEM [facility] 09-13-2022 10:27-0400 Systolic blood pressure 130 mm[Hg] Allyson SALEEM [facility] 07-19-2022 09:10-0400 Body height 167.64 cm Andrei Wiseman Work Phone: [facility] DO Work Phone: 07-19-2022 09:10-0400 Body mass index (BMI) [Ratio] 34.86 kg/m2 Andrei Wiseman Work Phone: [facility] DO Work Phone: 07-19-2022 09:10-0400 Body surface area Derived from formula 2.07 m2 Andrei Wiseman Work Phone: [facility] DO Work Phone: 07-19-2022 09:10-0400 Body weight 97.98 kg Andrei Overton [place] Work Phone: [facility] DO Work Phone: 07-19-2022 09:10-0400 Diastolic blood pressure 70 mm[Hg] Andrei Overton [place] Work Phone: [facility] DO Work Phone: 07-19-2022 09:10-0400 Heart rate 45 /min Andrei Overton [place] Work Phone: [facility] DO Work Phone: 07-19-2022 09:10-0400 Systolic blood pressure 128 mm[Hg] Andrei Overton [place] Work Phone: [facility] DO Work Phone: 01-21-2022 14:17-0500 Body height 167.64 cm Andrei Overton [place] Work Phone: [facility] DO Work Phone: 01-21-2022 14:17-0500 Body mass index (BMI) [Ratio] 38.41 kg/m2 Andrei Overton [place] Work Phone: [facility] DO Work Phone: 01-21-2022 14:17-0500 Body surface area Derived from formula 2.15 m2 Andrei Overton [place] Work Phone: [facility] DO Work Phone: 01-21-2022 14:17-0500 Body weight 107.96 kg Andrei Overton [place] Work Phone: [facility] DO Work Phone: 01-21-2022 14:17-0500 Diastolic blood pressure 72 mm[Hg] Andrei Overton [place] Work Phone: [facility] DO Work Phone: 01-21-2022 14:17-0500 Heart rate 47 /min Andrei Overton [place] Work Phone: [facility] DO Work Phone: 01-21-2022 14:17-0500 Systolic blood pressure 132 mm[Hg] Andrei T [place] Work Phone: [facility] DO Work Phone: 11-03-2021 10:36-0400 Heart rate 48 /min Andrei T Def[place] Work Phone: [facility] DO Work Phone: 11-03-2021 10:32-0400 Body height 167.64 cm Andrei T Def[place] Work Phone: [facility] DO Work Phone: 11-03-2021 10:32-0400 Body mass index (BMI) [Ratio] 39.38 kg/m2 Andrei Overton [place] Work Phone: [facility] DO Work Phone: 11-03-2021 10:32-0400 Body surface area Derived from formula 2.18 m2 Andrei T Defrance Work Phone: [facility] DO Work Phone: 11-03-2021 10:32-0400 Body weight 110.68 kg Andrei T Defrance Work Phone: [facility] DO Work Phone: 11-03-2021 10:32-0400 Diastolic blood pressure 86 mm[Hg] Andrei T Defrance Work Phone: [facility] DO Work Phone: 11-03-2021 10:32-0400 Systolic blood pressure 138 mm[Hg] Andrei T Defrance Work Phone: [facility] DO Work Phone: 09-21-2021 12:00-0400 48 1 Andrei Overton [place] Work Phone: [facility] [place] Work Phone: Comment on above: [id number] 09-14-2021 15:01-0400 Body height 167.64 cm Andrei Overton [place] Work Phone: [facility] DO Work Phone: 09-14-2021 15:01-0400 Body mass index (BMI) [Ratio] 39.87 kg/m2 Andrei Overton [place] Work Phone: [facility] DO Work Phone: 09-14-2021 15:01-0400 Body surface area Derived from formula 2.19 m2 Andrei Overton [place] Work Phone: [facility] DO Work Phone: 09-14-2021 15:01-0400 Body weight 112.04 kg Andrei Overton [place] Work Phone: [facility] DO Work Phone: 09-14-2021 15:01-0400 Diastolic blood pressure 86 mm[Hg] Andrei Overton [place] Work Phone: [facility] DO Work Phone: 09-14-2021 15:01-0400 Heart rate 77 /min Andrei Overton [place] Work Phone: [facility] DO Work Phone: 09-14-2021 15:01-0400 Systolic blood pressure 128 mm[Hg] Andrei Overton [place] Work Phone: [facility] DO Work Phone: 09-07-2021 11:37-0400 Body height 167.64 cm Andrei Overton [place] Work Phone: [facility] DO Work Phone: 09-07-2021 11:37-0400 Body mass index (BMI) [Ratio] 39.54 kg/m2 Andrei Overton [place] Work Phone: [facility] DO Work Phone: 09-07-2021 11:37-0400 Body surface area Derived from formula 2.18 m2 Andrei Overton [place] Work Phone: [facility] DO Work Phone: 09-07-2021 11:37-0400 Body weight 111.13 kg Andrei Overton [place] Work Phone: [facility] DO Work Phone: 09-07-2021 11:37-0400 Diastolic blood pressure 74 mm[Hg] Andrei Overton [place] Work Phone: [facility] DO Work Phone: 09-07-2021 11:37-0400 Heart rate 70 /min Andrei Overton [place] Work Phone: [facility] DO Work Phone: 09-07-2021 11:37-0400 Systolic blood pressure 122 mm[Hg] Andrei Overton [place] Work Phone: [facility] DO Work Phone: 08-31-2021 10:45-0400 35 1 Andrei Overton [place] Work Phone: [facility] [place] Work Phone: Comment on above: [id number] 07-22-2021 17:22-0400 Body height 170.18 cm Andrei Overton [place] Work Phone: [facility] DO Work Phone: 07-22-2021 17:22-0400 Body mass index (BMI) [Ratio] 39 kg/m2 Andrei Overton Def[place] Work Phone: [facility] DO Work Phone: 07-22-2021 17:22-0400 Body surface area Derived from formula 2.22 m2 Andrei Overton [place] Work Phone: [facility] DO Work Phone: 07-22-2021 17:22-0400 Body weight 112.95 kg Andrei Overton [place] Work Phone: [facility] DO Work Phone: 07-22-2021 17:22-0400 Diastolic blood pressure 88 mm[Hg] Andrei Overton [place] Work Phone: [facility] DO Work Phone: 07-22-2021 17:22-0400 Heart rate 74 /min Andrei Overton [place] Work Phone: [facility] DO Work Phone: 07-22-2021 17:22-0400 Systolic blood pressure 138 mm[Hg] Andrei Overton [place] Work Phone: [facility] DO Work Phone: 07-22-2021 12:50-0400 Body height 170.18 cm Andrei Overton Defrance Work Phone: [facility] 250 DO Work Phone: 07-22-2021 12:50-0400 Body mass index (BMI) [Ratio] 39 kg/m2 Andrei Overton Defrance Work Phone: [facility] 250 DO Work Phone: 07-22-2021 12:50-0400 Body surface area Derived from formula 2.22 m2 Andrei T Defrance Work Phone: [facility] 250 DO Work Phone: 07-22-2021 12:50-0400 Body weight 112.95 kg Andrei T Defrance Work Phone: [facility] 250 DO Work Phone: 07-22-2021 12:50-0400 Diastolic blood pressure 90 mm[Hg] Andrei T Defrance Work Phone: [facility] 250 DO Work Phone: 07-22-2021 12:50-0400 Heart rate 74 /min Andrei T Defrance Work Phone: [facility] 250 DO Work Phone: 07-22-2021 12:50-0400 Systolic blood pressure 142 mm[Hg] Andrei T Defrance Work Phone: [facility] 250 DO Work Phone: 07-22-2021 12:49-0400 Body height 170.18 cm Andrei T Defrance Work Phone: [facility] 250 DO Work Phone: 07-22-2021 12:49-0400 Body mass index (BMI) [Ratio] 39 kg/m2 Andrei T Defrance Work Phone: [facility] 250 DO Work Phone: 07-22-2021 12:49-0400 Body surface area Derived from formula 2.22 m2 Andrei T Defrance Work Phone: [facility] 250 DO Work Phone: 07-22-2021 12:49-0400 Body weight 112.95 kg Andrei T Defrance Work Phone: [facility] 250 DO Work Phone: 07-22-2021 12:49-0400 Diastolic blood pressure 98 mm[Hg] Andrei T Defrance Work Phone: [facility] 250 DO Work Phone: 07-22-2021 12:49-0400 Heart rate 74 /min Andrei Wiseman Work Phone: [facility] 250 DO Work Phone: 07-22-2021 12:49-0400 Systolic blood pressure 144 mm[Hg] Andrei Wiseman Work Phone: [facility] 250 DO Work Phone: Encounters Encounter Date Encounter Type Care Provider Facility Start: 10-23-2024 ambulatory Allyson Easley [facility] Start: 10-04-2024 ambulatory Allyson Easley ty:[id number] Start: 09-17-2024 End: 09-17-2024 ambulatory Allyson SALEEM Facility:[facility] [place] [place] Start: 09-17-2024 End: 09-17-2024 ambulatory Allyson SALEEM Facility:[facility] Start: 09-17-2024 End: 09-17-2024 Patient encounter procedure Allyson SALEEM [facility] Start: 09-14-2024 End: 09-14-2024 ambulatory ALLYSON SALEEM [facility] Start: 09-13-2024 ambulatory JEROME QUICK [facility] Start: 09-12-2024 End: 09-12-2024 Follow-up encounter [facility] 1 [facility] Medication Management Comment on above: Paroxysmal A-fib (CM S-HCC) (Primary Dx) Start: 09-12-2024 End: 09-12-2024 ambulatory [facility] Start: 08-16-2024 End: 08-17-2024 Refill Andrei Wiseman MD Work Phone: [facility] Comment on above: PUD (peptic ulcer di sease) Start: 08-15-2024 End: 08-15-2024 Follow-up encounter [facility] 1 [facility] Medication Management Comment on above: Paroxysmal A-fib (CM S-HCC) (Primary Dx) Start: 08-15-2024 End: 08-15-2024 ambulatory [facility] MEDICATION MANAGEMENT [facility] Start: 08-08-2024 End: 08-08-2024 ambulatory [facility] Start: 08-08-2024 Encounter for genera l adult medical examination without abnormal findings [facility] Start: 08-08-2024 End: 08-08-2024 Patient encounter procedure Jerome Quick MD Work Phone[facility] Comment on above: Encounter for Medica re annual wellness exam (Primary Dx); Paroxysmal A-fib (CMS-HCC); Single subsegmental pulmonary embolism without acute cor pulmonale (CMS-HCC); Chronic diastolic congestive heart failure (CMS-HCC); Essential hypertension; Acoustic neuroma (CMS-HCC); Yeast infection; PUD (peptic ulcer disease); Hypothyroidism (acquired) Start: 08-03-2024 End: 08-03-2024 [facility]phone [facility] Comment on above: Vaginitis Start: 08-01-2024 End: 08-01-2024 Professional / ancillary services management Raymundo [facility] Comment on above: 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 use; Paroxysmal atrial fibrillation (Multi) Start: 08-01-2024 End: 08-01-2024 ambulatory [facility] [address] Ambulatory Start: 07-26-2024 End: 07-26-2024 Office outpatient visit 25 minutes Jerome Quick MD Work Phone: [facility] Comment on above: Rhinopharyngitis (Pr imary Dx); Paroxysmal A-fib (CMS-HCC); Single subsegmental pulmonary embolism without acute cor pulmonale (CMS-HCC) Start: 07-26-2024 End: 07-26-2024 ambulatory [facility] Start: 07-26-2024 End: 07-26-2024 Documentation procedure Heriberto Par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; PVC (premature ventricular contraction); BMI 32.0-32.9,adult; Never smoked cigarettes; Obesity, Class I, BMI 30-34.9 Start: 07-25-2024 End: 07-25-2024 ambulatory YVONNE Marroquin [facility] Ambulatory Start: 07-18-2024 End: 07-18-2024 Follow-up encounter [facility] 1 [facility] Medication Management Comment on above: Paroxysmal A-fib (CM S-HCC) (Primary Dx) Start: 07-18-2024 End: 07-18-2024 ambulatory [facility] MEDICATION [facility]NAG[facility] Start: 06-29-2024 End: 06-29-2024 ambulatory [facility] MEDICATION MANAGEMENT [facility] Start: 06-19-2024 End: 06-19-2024 Follow-up encounter [facility] 1 [facility] Medication Management Comment on above: Paroxysmal A-fib (CM S-HCC) (Primary Dx); Single subsegmental pulmonary embolism without acute cor pulmonale (CMS-HCC) Start: 06-19-2024 End: 06-19-2024 ambulatory [facility] MEDICATION MANAGEMENT [facility] Start: 06-07-2024 End: 06-07-2024 Follow-up encounter [facility] 1 [facility] Medication Management Comment on above: Atrial fibrillation, unspecified type (CMS-HCC) (Primary Dx) Start: 06-07-2024 End: 06-07-2024 ambulatory [facility] Start: 05-18-2024 End: 05-18-2024 ambulatory [facility] Start: 05-18-2024 End: 05-18-2024 Follow-up encounter [facility] 2 [facility] Medication Management Comment on above: Atrial fibrillation, unspecified type (CMS-HCC) (Primary Dx) Start: 05-16-2024 End: 05-16-2024 Evaluation and management of inpatient MATTHWE DAMON [facility] Start: 05-09-2024 End: 05-09-2024 Follow-up encounter [facility] 1 [facility] Medication Management Comment on above: Atrial fibrillation, unspecified type (CMS-HCC) (Primary Dx) Start: 05-09-2024 End: 05-09-2024 ambulatory [facility] Start: 04-30-2024 End: 04-30-2024 [facility] Start: 04-30-2024 End: 04-30-2024 Follow-up encounter [facility] 1 [facility] Medication Management Comment on above: Atrial fibrillation, unspecified type (CMS-HCC) (Primary Dx) Start: 04-16-2024 End: 04-16-2024 [facility] Start: 04-16-2024 End: 04-16-2024 Follow-up encounter [facility] 1 [facility] Medication Management Comment on above: Paroxysmal A-fib (CM S-HCC) (Primary Dx) Start: 04-09-2024 End: 04-09-2024 Emergency department patient visit ANDREI WISEMAN [facility] Start: 03-26-2024 End: 03-26-2024 ambulatory [facility] MEDICATION MANAG[facility] Start: 03-26-2024 End: 03-26-2024 Follow-up encounter [facility] 1 [facility] Medication Management Comment on above: Paroxysmal A-fib (CM S-HCC) (Primary Dx) Start: 03-05-2024 End: 03-05-2024 ambulatory [facility] Start: 03-05-2024 End: 03-05-2024 Follow-up encounter [facility] 1 [facility] Medication Therapy Management Comment on above: Paroxysmal A-fib (CM S-HCC) (Primary Dx) Start: 02-20-2024 End: 02-20-2024 ambulatory YVONNE HAAS [facility] Start: 02-20-2024 End: 02-20-2024 Follow-up encounter [facility] 1 [facility] Medication Therapy Management Comment on above: Paroxysmal A-fib (CM S-HCC) (Primary Dx) Start: 02-02-2024 End: 02-02-2024 Follow-up encounter [facility] 1 [facility] Medication Therapy Management Comment on above: Paroxysmal A-fib (CM S-HCC) (Primary Dx) Start: 02-02-2024 End: 02-02-2024 ambulatory [facility] Start: 01-27-2024 End: 01-27-2024 ambulatory Andrei Defze Facility:[facility] Start: 01-25-2024 End: 01-25-2024 ambulatory ANDREI Overton DEFRANCE [facility] Start: 01-24-2024 End: 01-24-2024 ambulatory [facility] Start: 01-13-2024 End: 01-13-2024 ambulatory [facility] Start: 01-13-2024 End: 01-13-2024 Follow-up encounter [facility] 2 [facility] Medication Therapy Management Comment on above: Atrial fibrillation, unspecified type (CMS-HCC) (Primary Dx) Start: 01-04-2024 End: 01-04-2024 Refill Andrei Wiseman MD Work Phone: [facility] Start: 12-30-2023 End: 12-30-2023 Follow-up encounter [facility] 1 [facility] Medication Therapy Management Comment on above: Paroxysmal A-fib (CM S-HCC) (Primary Dx) Start: 12-30-2023 End: 12-30-2023 ambulatory [facility] Start: 12-23-2023 End: 12-23-2023 [facility] Medication Therapy Management Comment on above: Paroxysmal A-fib (CM S-HCC) (Primary Dx) Start: 12-23-2023 End: 12-23-2023 ambulatory [facility] Start: 12-19-2023 End: 12-19-2023 ambulatory [facility] [address] Ambulatory Start: 12-16-2023 End: 12-16-2023 Follow-up encounter [facility] 1 [facility] Medication Therapy Management Comment on above: Paroxysmal A-fib (CM S-HCC) (Primary Dx) Start: 12-16-2023 End: 12-16-2023 ambulatory [facility] Start: 12-14-2023 End: 12-14-2023 Subsequent hospital visit by physician Adenike Steen Echo/Vasc Room 2 [facility] Comment on above: Dilated cardiomyopat hy (Multi) Start: 12-14-2023 End: 12-14-2023 ambulatory [facility] Start: 12-13-2023 End: 12-13-2023 Office outpatient visit 25 minutes Yvonne Haas MD Work Phone: [facility] Comment on above: Paroxysmal atrial fi brillation (Multi) (Primary Dx); PVC (premature ventricular contraction); Mild CAD; Essential hypertension, benign; Dilated cardiomyopathy (Multi); Sick sinus syndrome (Multi); 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 Start: 12-09-2023 End: 12-09-2023 Follow-up encounter [facility] Job[facility] 2 [facility] Medication Therapy Management Comment on above: Atrial fibrillation, unspecified type (CMS-HCC) (Primary Dx) Start: 12-01-2023 End: 12-01-2023 Emergency department patient visit MD Andrei Wiseman Work Phone: [facility] Work Phone: Start: 11-30-2023 End: 11-30-2023 ambulatory JOBST SERVICE [facility] Start: 11-30-2023 End: 11-30-2023 Follow-up encounter [facility] 2 [facility] Medication Therapy Management Comment on above: Atrial fibrillation, unspecified type (CMS-HCC) (Primary Dx) Start: 11-18-2023 End: 11-18-2023 Follow-up encounter Pm [facility] 2 [facility] Medication Therapy Management Comment on above: Atrial fibrillation, unspecified type (CMS-HCC) (Primary Dx) Start: 11-18-2023 End: 11-18-2023 [facility] Start: 11-11-2023 End: 11-11-2023 Follow-up encounter Pm Jobst [facility] 2 [facility] Medication Therapy Management Comment on above: Atrial fibrillation, unspecified type (CMS-HCC) (Primary Dx) Start: 11-11-2023 End: 11-11-2023 [facility] Start: 11-08-2023 End: 11-08-2023 Follow-up encounter Pm [facility] 1 [facility] Medication Therapy Management Comment on above: Paroxysmal A-fib (CM S-HCC) (Primary Dx) Start: 11-08-2023 End: 11-08-2023 ambulatory [facility] Start: 11-04-2023 End: 11-04-2023 ambulatory [facility] SERV[facility] Start: 11-04-2023 End: 11-04-2023 Follow-up encounter [facility] 2 [facility] Medication Therapy Management Comment on above: Atrial fibrillation, unspecified type ([facility]-HCC) (Primary Dx) Start: 10-31-2023 End: 10-31-2023 ambulatory [facility] Start: 10-31-2023 End: 10-31-2023 Follow-up encounter [facility] 1 [facility] Medication Therapy Management Comment on above: Atrial fibrillation, unspecified type ([facility]-HCC) (Primary Dx) Start: 10-28-2023 End: 10-28-2023 ambulatory [facility] Start: 10-28-2023 End: 10-28-2023 Anticoagulant drug monitoring [facility] 2 [facility] Medication Therapy Management Comment on above: Atrial fibrillation, unspecified type (CMS-HCC) (Primary Dx) Start: 10-24-2023 End: 10-25-2023 Anticoagulant drug monitoring [facility] Work Phone: [facility] Medication Therapy Management Comment on above: Atrial fibrillation, unspecified type (CMS-HCC) (Primary Dx) Start: 09-16-2023 End: 09-16-2023 Patient encounter procedure Allyson SALEEM [facility] Start: 08-04-2023 End: 08-04-2023 Patient encounter procedure Andrei Wiseman MD Work Phone: [facility] Comment on above: Routine general medi edwin examination at a health care facility (Primary Dx); Essential hypertension; Paroxysmal A-fib (CMS-HCC); Chronic diastolic congestive heart failure ([facility]-HCC); H/O gastric bypass; Encounter for screening mammogram for malignant neoplasm of breast; Acoustic neuroma ([facility]-HCC); Single subsegmental pulmonary embolism without acute cor pulmonale ([facility]-HCC) Start: 08-04-2023 End: 08-04-2023 Patient encounter status Andrei Wiseman MD Work Phone[facility] Work Phone: Start: 05-11-2023 Refill Andrei martell MD Work Phone: [facility] Start: 03-25-2023 Non-patient / Non-visit MD Lui Wiseman Work Phone: [facility] Work Phone: Start: 03-25-2023 End: 03-25-2023 Patient encounter procedure MD Andrei Wiseman Work Phone: [facility]-Respiratory Therapy Work Phone: Start: 03-25-2023 End: 03-25-2023 ambulatory MD Andrei Wiseman Work Phone: [facility] Work Phone: Start: 03-14-2023 End: 03-14-2023 Subsequent hospital visit by physician Adenike Lockwood Wi Admin Room 1 [facility] Start: 03-14-2023 End: 03-14-2023 ambulatory DELILAH [facility] Start: 03-01-2023 End: 03-01-2023 Office outpatient visit 25 minutes Delilah [facility] 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 Work Phone: [facility] Comment on above: Other cardiomyopathy (CMS/HCC) (Primary Dx); Sick sinus syndrome (CMS/HCC); Paroxysmal atrial fibrillation (CMS/HCC); 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 use; 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; Mild CAD; Essential hypertension, benign; BMI 34.0-34.9,adult; Abnormal electrocardiogram (ECG) (EKG) Start: 02-21-2023 End: 02-21-2023 Patient encounter procedure MD Andrei Wiseman Work Phone: [facility]-Lab [facility] [place] Work Phone: Start: 02-21-2023 End: 02-21-2023 ambulatory MD Andrei Wiseman Work Phone: [facility] Work Phone: Start: 02-21-2023 End: 02-21-2023 Office outpatient visit 25 minutes Delilah Turner 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 Work Phone: [facility] Comment on above: Cardiomyopathy, unsp ecified type (CMS/HCC) (Primary Dx); Paroxysmal atrial fibrillation (CMS/HCC); 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 use; Mild CAD; Essential hypertension, benign; 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; BMI 34.0-34.9,adult; Sick sinus syndrome (CMS/HCC) Start: 02-13-2023 Refill Andrei martell MD Work Phone: [facility] Start: 02-01-2023 End: 02-01-2023 Office outpatient visit 25 minutes Andrei Wiseman MD Work Phone: [facility] Comment on above: Essential hypertensi on (Primary Dx); Paroxysmal A-fib (CMS-HCC); Chronic diastolic congestive heart failure (CMS-HCC); H/O gastric bypass; Nephrolithiasis Start: 01-21-2023 End: 01-21-2023 Subsequent hospital visit by physician Adenike Steen Echo/Vasc Room 2 [facility] Comment on above: Cardiomyopathy, unsp ecified type (CMS/HCC); Abnormal electrocardiogram (ECG) (EKG) Start: 01-21-2023 End: 01-21-2023 ambulatory DELILAH [facility]ley [facility] Start: 01-17-2023 End: 01-17-2023 Office outpatient visit 25 minutes Delilah Turner 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 Work Phone: [facility] Comment on above: Paroxysmal atrial fi brillation (CMS/HCC) (Primary Dx); 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 use; 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; Cardiomyopathy, unspecified type (CMS/HCC); Mild CAD; Essential hypertension, benign; BMI 34.0-34.9,adult; Abnormal electrocardiogram (ECG) (EKG) Start: 09-22-2022 End: 09-22-2022 Lab Drop off Allyson SALEEM [facility] Start: 09-22-2022 End: 09-22-2022 Patient encounter procedure [facility] Start: 09-13-2022 End: 09-13-2022 Patient encounter procedure [facility] SALEEM [facility] Start: 08-05-2022 Chart Update Andrei martell Work Phone: [facility] 250 DO Work Phone: Start: 08-05-2022 End: 08-05-2022 ambulatory MD Andrei Wiseman Work Phone: [facility] Work Phone: Start: 08-05-2022 End: 08-05-2022 Patient encounter procedure MD Andrei Wiseman Work Phone: [facility]-Respiratory Therapy Work Phone: Start: 05-01-2022 Chart Update Andrei martell Work Phone: [facility] 250 DO Work Phone: Start: 04-28-2022 Chart Update [facility]ell [facility] Work Phone: Start: 04-27-2022 End: 04-27-2022 ambulatory MD Andrei Wiseman Work Phone: [facility] Work Phone: Start: 04-27-2022 End: 04-27-2022 Patient encounter procedure MD Andrei Wiseman Work Phone: [facility]-Respiratory Therapy Work Phone: Start: 04-08-2022 Patient encounter procedure Da nessa Wiseman Work Phone: [facility] 600 DO Work Phone: Start: 01-21-2022 FUV, Provider: Jose Martin Jones, Status: Pen, Time: 2:10 PM Andrei Overton Defrance Work Phone: [facility] 250 DO Work Phone: Start: 01-21-2022 Office outpatient vi sit 25 minutes Andrei T Defrance Work Phone: [facility] 250 DO Work Phone: Start: 01-21-2022 ambulatory Jose Martin Jones II Facility: Start: 01-21-2022 End: 01-21-2022 ambulatory MD Andrei Wiseman Work Phone: [facility] Work Phone: Start: 01-21-2022 End: 01-21-2022 Patient encounter procedure MD Andrei Wiseman Work Phone: [facility]-Respiratory Therapy Start: 01-12-2022 Patient encounter procedure Da vid T Defrance Work Phone: [facility] 250 DO Work Phone: Start: 11-13-2021 ambulatory Jose Martin Jones II Facility: Start: 11-10-2021 ambulatory KM Turner Facilit y: Start: 11-03-2021 Office outpatient vi sit 15 minutes Andrei Overton Defrance Work Phone: [facility] 250 DO Work Phone: Start: 11-03-2021 Patient encounter procedure Da vid T Defrance Work Phone: [facility] 250 DO Work Phone: Start: 11-03-2021 ambulatory KM Turner Facilit y: Start: 09-23-2021 Chart Update Andrei Formanran ce Work Phone: [facility] 250 DO Work Phone: Start: 09-22-[address] Andrei Bowser as Defrance Facility:[id number] Start: 09-21-2021 Patient encounter procedure Da vid T Defrance Work Phone: [facility] [facility] [place] Work Phone: Start: 09-21-2021 ambulatory Ms. Delilah Turner Facilit y:[id number] Start: 09-14-2021 Patient encounter procedure Da vid T Defrance Work Phone: [facility] 250 DO Work Phone: Start: 09-14-2021 ambulatory Andrei Paul Def[place] Facility: Start: 09-07-2021 Office outpatient vi sit 25 minutes Andrei T Defrance Work Phone: [facility] [facility] [facility] DO Work Phone: Start: 09-07-2021 ambulatory Jose Martin Jones II Facility: Start: 08-31-2021 Patient encounter procedure Da vid T Defrance Work Phone: [facility] [address] [place] Work Phone: Start: 08-31-[address] Andrei Bowser as Defrance Facility:[id number] Start: 07-22-2021 Office consultation new/estab patient 80 min Andrei T Defrance Work Phone: [facility] 250 DO Work Phone: Start: 07-22-2021 Office outpatient ne w 60 minutes Andrei T Defrance Work Phone: [facility] 250 DO Work Phone: Start: 07-22-2021 ambulatory Andrei Formanrance Facility: Start: 12-05-2020 Encounter for prepro cedural laboratory examination DR ALLYSON SALEEM [facility] Start: 12-04-2020 End: 12-04-[address] ALLYSON SALEEM Facility:H1 Start: 12-01-2020 End: 12-02-[address] ALLYSON SALEEM Facility:H1 Start: 12-01-2020 End: 12-02-2020 Encounter for preprocedural laboratory examination DR ALLYSON SALEEM Facility:H1 Start: 11-13-2020 End: 11-13-[address] ANDREI WISEMAN Facility:H1 Start: 11-11-2020 Preoperative state Andrei brooks MD Work Phone: [facility] Start: 11-10-2020 End: 11-11-[address] ANDREI WISEMAN Facility:H1 Start: 11-06-2020 End: 11-07-[address] ANDREI WISEMAN Facility:H1 Start: 09-15-2020 End: 09-16-[address] ANDREI WISEMAN Facility:H1 Procedures Date Procedure Procedure Detail Performing Clinician Start: 09-12-2024 Prothrombin time [facility] Work Phone: Start: 08-15-2024 Prothrombin time [facility] Work Phone: Start: 08-08-2024 Adult depression scr eening assessment Jerome Quick MD Work Phone: Start: 07-26-2024 Adult depression scr eening assessment Jerome Quick MD Work Phone: Start: 07-25-2024 Ecg routine ecg w/le ast 12 lds w/i&r Yvonne Haas MD Work Phone: Start: 07-18-2024 Prothrombin time [facility] Work Phone: Start: 06-19-2024 Prothrombin time [facility] Work Phone: Start: 06-07-2024 Prothrombin time [facility] Work Phone: Start: 05-18-2024 Prothrombin time [facility] Work Phone: Start: 05-09-2024 Prothrombin time [facility] Work Phone: Start: 04-30-2024 Prothrombin time [facility] Work Phone: Start: 04-16-2024 Prothrombin time [facility] Work Phone: Start: 03-26-2024 Prothrombin time [facility] Work Phone: Start: 03-05-2024 Prothrombin time [employer] [facility] Work Phone: Start: 02-20-2024 Prothrombin time [employer] Work Phone: Start: 02-02-2024 Prothrombin time [employer] Work Phone: Start: 01-25-2024 Adult depression scr eening assessment P[facility] 1 Start: 01-13-2024 Prothrombin time [employer] Work Phone: Start: 12-30-2023 Prothrombin time [employer] Work Phone: Start: 12-23-2023 Prothrombin time [employer] Work Phone: Start: 12-16-2023 Prothrombin time [employer] Work Phone: Start: 12-16-2023 Thyrotropin [Units/v olume] in Serum or Plasma Yvonne Haas MD Work Phone: Start: 12-14-2023 Echo tthrc r-t 2d w/ wom-mode compl spec&colr d Yvonne Haas MD Work Phone: Start: 12-13-2023 Ecg routine ecg w/le ast 12 lds w/i&r Yvonne Haas MD Work Phone: Start: 12-09-2023 Prothrombin time [employer] Work Phone: Start: 12-01-2023 CT angiography of thorax MD Andrei Wiseman Work Phone: Start: 12-01-2023 Plain chest X-ray MD Leung Work Phone: Start: 11-30-2023 Prothrombin time [employer] Work Phone: Start: 11-18-2023 Prothrombin time [employer] Work Phone: Start: 11-11-2023 Prothrombin time [employer] Work Phone: Start: 11-08-2023 Prothrombin time [employer] Work Phone: Start: 11-04-2023 Prothrombin time [employer] Work Phone: Start: 10-31-2023 Prothrombin time [employer] Work Phone: Start: 10-28-2023 Prothrombin time [employer] Work Phone: Start: 08-04-2023 Adult depression scr eening assessment Andrei Wiseman MD Work Phone: Start: 03-25-2023 Plain chest X-ray MD Lueng Work Phone: Start: 03-14-2023 NUCLEAR STRESS TEST MARILU TURNER Start: 03-14-2023 Cv strs tst xers&/or rx cont ecg trcg only Delilah Turner 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 Work Phone: Start: 03-01-2023 Ecg routine ecg w/le ast 12 lds w/i&r Delilah Turner 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 Work Phone: Start: 02-21-2023 Ecg routine ecg w/le ast 12 lds w/i&r Delilah Turner 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 Work Phone: Start: 02-01-2023 Adult depression scr eening assessment Andrei Wiseman MD Work Phone: Start: 01-21-2023 TRANSTHORACIC ECHO ( TTE) SYLVAIN TURNER Start: 01-21-2023 Echo tthrc r-t 2d w/ wom-mode compl spec&colr d Delilah Turner 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 Work Phone: Start: 01-17-2023 Ecg routine ecg w/le ast 12 lds w/i&r Delilah Turner 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 Work Phone: Start: 08-05-2022 Plain chest X-ray MD Leung Work Phone: Start: 04-27-2022 Plain chest X-ray MD Leung Work Phone: Start: 01-21-2022 Plain chest X-ray MD Leung Work Phone: Start: 08-31-2021 Echocardiography Andrei Wiseman Work Phone: Start: 12-04-2020 Extracorporeal shock wave lithotripsy of calculus of kidney Allyson SALEEM Start: 11-13-2020 Extracorporeal shock wave lithotripsy of calculus of kidney Allyson SALEEM Start: 02-07-2018 Cholecystectomy Allyson SALEEM Start: 02-08-2016 Cataract surgery Baldomero SALEEM Start: 02-07-2007 Colonoscopy Allyson LOTTDarrin Start: 01-27-2007 Colonoscopy Andrei adkins MD Work Phone: Start: 01-07-2005 Panniculectomy Allyson SALEEM Start: 02-07-2002 Biopsy of uterine ligament Allyson SALEEM Start: 02-07-2002 Colonoscopy Allyson MCDANIEL Start: 02-07-2002 Arianne-en-Y gastrojejunostomy Allyson SALEEM Start: 02-07-1977 Ligation of fallopian tube Allyson SALEEM Start: 02-08-1948 Tonsillectomy Allyson CESPEDES Biopsy Andrei fonseca Work Phone: Cardioversion Andrei martell Work Phone: Cataract surgery Andrei post Work Phone: Cholecystectomy Andrei adkins Work Phone: Colonoscopy Andrei fonseca Work Phone: Esophagogastrostomy, antesternal or antethoracic Andrei Wiseman Work Phone: Comment on above: History of Gastric S urgery For Morbid Obesity Gastric Bypass; Ligation of fallopian tube D avibrittaney Wiseman Work Phone: Lithotripsy Andrei fonseca Work Phone: Operation on mouth Andrei Wahl efrance Work Phone: Panniculectomy Andrei Whitehead nce Work Phone: Tonsillectomy Andrei Peguero ce Work Phone: Plan of Treatment Date Care Activity Detail Author Start: 08-13-2025 End: 08-13-2025 Patient encounter procedure 08/13/2025 1:00 PM EDT Office Visit [facility] [address] [place] [address] Jerome Quick MD [address] [place] [address] [facility] Start: 08-08-2025 Depression Screening Depression Screening [facility] Start: 08-08-2025 Fall Risk Screening Fall Risk Screening [facility] Start: 08-08-2025 Medicare Annual Wellness Visit Medicare Annual Wellness Visit [facility] Start: 08-08-2025 Tobacco Screening Tobacco Screening [facility] Start: 07-26-2025 Depression Screening Depression Screening [facility] Start: 07-26-2025 Tobacco Screening Tobacco Screening [facility] Start: 05-16-2025 Tobacco Screening Tobacco Screening [facility] Start: 04-09-2025 Tobacco Screening Tobacco Screening [facility] Start: 02-24-2025 End: 07-25-2025 Aspartate aminotransferase [Enzymatic activity/volume] in Serum or Plasma by With P-5'-P Aspartate Aminotransferase Lab Routine 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 use Paroxysmal atrial fibrillation (Multi) Expected: 02/24/2025, Expires: 07/25/2025 [facility] Work Phone: Comment on above: Expected: 02/24/2025, Expires: Start: 02-24-2025 End: 07-25-2025 Basic metabolic 2000 panel - Serum or Plasma Basic Metabolic Panel Lab Routine 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 use Paroxysmal atrial fibrillation (Multi) Expected: 02/24/2025, Expires: 07/25/2025 [facility] Work Phone: Comment on above: Expected: 02/24/2025, Expires: Start: 02-24-2025 End: 07-25-2025 Thyrotropin [Units/volume] in Serum or Plasma Thyroid Stimulating Hormone Lab Routine 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 use Paroxysmal atrial fibrillation (Multi) Expected: 02/24/2025, Expires: 07/25/2025 [facility] Work Phone: Comment on above: Expected: 02/24/2025, Expires: Start: 02-14-2025 End: 02-14-2025 Patient encounter procedure 02/14/2025 1:15 PM EST [facility] [address] [place] [phone] Jerome Quick MD [address] [place] [address] [facility] Start: 01-24-2025 Depression Screening Depression Screening [facility] Start: 01-24-2025 Fall Risk Screening Fall Risk Screening [facility] Start: 01-24-2025 Tobacco Screening Tobacco Screening [facility] Start: 01-24-2025 End: 07-25-2025 XR Chest 2 Views XR chest 2 views Imaging Routine 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 use Paroxysmal atrial fibrillation (Multi) Expected: 01/24/2025, Expires: 07/25/2025 [facility] Work Phone: Comment on above: Expected: 01/24/2025, Expires: Start: 12-15-2024 Thyroid stimulating hormone measurement TSH Level [facility] Start: 12-13-2024 Echocardiography Echocardiogram [facility] Start: 11-29-2024 End: 11-29-2024 Patient encounter procedure 11/29/2024 10:50 AM EDT Office Visit [facility] [address] [place] [address] Yvonne Haas MD [address] [place] [address] [facility] Start: 10-10-2024 End: 10-10-2024 Follow-up encounter 10/10/2024 2:00 PM EDT Follow Up Anticoagulation [facility]ication Management [address] [place] [address] [facility] Start: 10-08-2024 Influenza vaccination Influenza Vaccine [facility] Start: 10-02-2024 End: 10-02-2024 Patient encounter procedure 10/02/2024 1:30 PM EDT Appointment [facility] [address] [facility] [address] [place] [address] [facility] Start: 09-24-2024 End: 07-25-2026 US Heart Transthoracic Transthoracic Echo Limited Echocardiography Routine Cardiomyopathy, unspecified type (Multi) Chronic diastolic congestive heart failure Expected: 09/24/2024 (Approximate), Expires: 07/25/2026 [facility] Work Phone: Comment on above: Expected: 09/24/2024 (Approximate), Expi res: 07/25/2026 Start: 09-12-2024 End: 09-12-2024 Follow-up encounter 09/12/2024 2:00 PM EDT Follow Up Anticoagulation [facility] Medication Management [address] [place] [phone] [facility] Start: 09-08-2024 End: 08-08-2025 CBC W Auto Differential panel - Blood CBC auto differential Lab Routine Essential hypertension Expected: 09/08/2024 (Approximate), Expires: 08/08/[address] [facility] Comment on above: Expected: 09/08/2024 (Approximate), Expi res: 08/08/2025 Start: 09-08-2024 End: 08-08-2025 Comprehensive metabolic 2000 panel - Serum or Plasma Comprehensive metabolic panel Lab Routine Essential hypertension Expected: 09/08/2024 (Approximate), Expires: 08/08/2025 [facility] [employer] [facility] Comment on above: Expected: 09/08/2024 (Approximate), Expi res: 08/08/2025 Start: 09-08-2024 End: 08-08-2025 Lipid 1996 panel - Serum or Plasma Lipid profile Lab Routine Chronic diastolic congestive heart failure ([facility]) Hypothyroidism (acquired) Expected: 09/08/2024 (Approximate), Expires: 08/08/2025 [facility] Work Phone: Comment on above: Expected: 09/08/2024 (Approximate), Expi res: 08/08/2025 Start: 09-08-2024 End: 08-08-2025 Thyrotropin [Units/volume] in Serum or Plasma TSH Lab Routine Essential hypertension Expected: 09/08/2024 (Approximate), Expires: 08/08/2025 [facility] [employer] Comment on above: Expected: 09/08/2024 (Approximate), Expi res: 08/08/2025 Start: 08-15-2024 End: 08-15-2024 Follow-up encounter 08/15/2024 1:45 PM EDT Follow Up Anticoagulation [facility] Medication Management [address] [place] [address] [facility] Start: 08-14-2024 Adult BMI Screening Adult BMI Screening [facility] [employer] [facility] Start: 08-08-2024 End: 08-08-2024 Patient encounter procedure 08/08/2024 1:00 PM EDT Office Visit [facility] [place] [phone] Jerome Quick MD [address] [place], [place] [id number] [facility] Start: 08-04-2024 Medicare Annual Wellness Visit Medicare Annual Wellness Visit (AWV) [facility] Start: 08-03-2024 Adult BMI Screening Adult BMI Screening [facility] Start: 08-03-2024 Depression Screening Depression Screening [facility] Start: 08-03-2024 Fall Risk Screening Fall Risk Screening [facility] Start: 08-03-2024 Medicare Annual Wellness Visit Medicare Annual Wellness Visit [facility] Start: 08-03-2024 Tobacco Screening Tobacco Screening [facility] Start: 08-01-2024 End: 07-25-2025 ECG 12 Lead [facility] Work Phone: Comment on above: Expected: 08/01/2024 (Approximate), Expi res: 07/25/2025 Start: 08-01-2024 End: 08-01-2024 Professional / ancillary services management 08/01/2024 11:00 AM EDT Ancillary Procedure [address] [phone] [facility] Start: 07-25-2024 End: 07-25-2025 Complete Pulmonary Function Test (Spirometry/DLCO/Lung Volumes) Complete Pulmonary Function Test (Spirometry/DLCO/Lung Volumes) PFT Routine 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 use Paroxysmal atrial fibrillation (Multi) Expected: 07/25/2024 (Approximate), Expires: 07/25/2025 [facility] Service Area Work Phone: Comment on above: Expected: 07/25/2024 (Approximate), Expi res: 07/25/2025 Start: 07-25-2024 End: 07-25-2024 Patient encounter procedure 07/25/2024 10:30 AM EDT Office Visit [address] [place] [phone] Yvonne Haas MD [address] [facility] [address] [place] [address] [facility] Start: 06-29-2024 End: 06-29-2024 Follow-up encounter 06/29/2024 3:15 PM EDT Follow Up Anticoagulation [facility]ication Management [address] [place] [address] [facility] Start: 06-18-2024 End: 06-18-2024 Follow-up encounter 06/18/2024 1:00 PM EDT Follow Up Anticoagulation [facility] Management [address] [place] [address] [facility] Start: 06-01-2024 End: 06-01-2024 Follow-up encounter 06/01/2024 1:30 PM EDT Follow Up Anticoagulation [facility]ication Management [address] [place] [address] [facility] Start: 05-27-2024 COVID-19 Vaccine () COVID-19 Vaccine () [facility] Start: 05-27-2024 COVID-19 Vaccine () COVID-19 Vaccine () [facility] Start: 05-16-2024 End: 05-16-2024 Follow-up encounter 05/16/2024 3:15 PM EDT Follow Up Anticoagulation [facility] [address] [place] [address] [facility] Start: 05-09-2024 End: 05-09-2024 Follow-up encounter 05/09/2024 1:45 PM EDT Follow Up Anticoagulation [facility] Medication Management [address] [place] [address] [facility] Start: 04-30-2024 End: 04-30-2024 Follow-up encounter 04/30/2024 11:45 AM EDT Follow Up Anticoagulation [facility]ication Management [address] [place] [address] [facility] Start: 04-16-2024 End: 04-16-2024 Follow-up encounter 04/16/2024 11:30 AM EDT Follow Up Anticoagulation [facility] Medication Management [address] [place] [address] [facility] Medication Management Start: 03-22-2024 End: 03-22-2024 Follow-up encounter 03/22/2024 11:45 AM EST Follow Up Anticoagulation [facility] Medication Therapy Management [address] [place] [address] [facility] Medication Therapy Management Start: 03-14-2024 End: 03-14-2024 Patient encounter procedure 03/14/2024 11:30 AM EST Appointment [facility] Pulmonary Function [address] [place] [address] [facility] Start: 03-05-2024 End: 03-05-2024 Follow-up encounter 03/05/2024 11:45 AM EST Follow Up Anticoagulation [facility] Medication Therapy Management [address] [place] [address] [facility] Therapy Management Start: 02-10-2024 End: 02-10-2024 Follow-up encounter 02/10/2024 10:45 AM EST Follow Up Anticoagulation [facility] Medication Therapy Management [address] [place] [address] [facility] Therapy Management Start: 02-02-2024 Adult BMI Screening Adult BMI Screening [facility] Start: 02-02-2024 Depression Screening Depression Screening [facility] Start: 02-02-2024 Fall Risk Screening Fall Risk Screening [facility] Start: 02-02-2024 Tobacco Screening Tobacco Screening [facility] Start: 01-25-2024 End: 01-25-2024 Patient encounter procedure 01/25/2024 9:15 AM EST Office Visit [facility] [address] [place] [phone] Andrei Wiseman MD [address] [place] [address] [facility] Start: 01-24-2024 End: 01-24-2024 Follow-up encounter 01/24/2024 11:45 AM EST Follow Up Anticoagulation [facility] Medication Therapy Management [address] [place] [address] [facility] Therapy Management Start: 01-22-2024 Echocardiography [facility] Start: 01-13-2024 End: 01-13-2024 Follow-up encounter 01/13/2024 11:45 AM EST Follow Up Anticoagulation [facility] Medication Therapy Management [address] [place] [address] [facility] Therapy Management Start: 12-30-2023 End: 12-30-2023 Follow-up encounter 12/30/2023 11:30 AM EST Follow Up Anticoagulation [facility] Medication Therapy Management [address] [place] [address] [facility] Therapy Management Start: 12-23-2023 End: 12-23-2023 Follow-up encounter 12/23/2023 11:30 AM EST Follow Up Anticoagulation [facility] Medication Therapy Management [address] [facility] [address] [facility] Medication Therapy Management Start: 12-19-2023 End: 12-19-2023 Professional / ancillary services management 12/19/2023 10:00 AM EST Ancillary Procedure [facility] [address] [address] [facility] Start: 12-16-2023 End: 12-16-2023 Follow-up encounter 12/16/2023 3:15 PM EST Follow Up Anticoagulation [facility] Medication Therapy Management [address] [place] [address] [facility] Med[facility] Therapy Management Start: 12-16-2023 Subsequent hospital visit by physician 12/16/2023 2:24 PM EST Hospital Encounter [facility] [address] [place] [phone] Paroxysmal atrial fibrillation (CMS-HCC) (Primary Dx) [facility] Comment on above: Paroxysmal atrial fibrillation (CMS-HCC) (Primary Dx) Start: 12-14-2023 End: 12-14-2023 Professional / ancillary services management 12/14/2023 2:00 PM EST Ancillary Procedure [facility] [address] [place] [phone] [facility] Start: 12-14-2023 End: 12-14-2023 Patient encounter procedure 12/14/2023 12:30 PM EST Appointment [facility] [address] [place] [phone] [facility] Start: 12-13-2023 End: 12-12-2024 Complete Pulmonary Function Test (Spirometry/DLCO/Lung Volumes) Complete Pulmonary Function Test (Spirometry/DLCO/Lung Volumes) PFT Routine Paroxysmal atrial fibrillation (Multi) 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 use Expected: 12/13/2023 (Approximate), Expires: 12/12/2024 [facility] Work Phone: Comment on above: Expected: 12/13/2023 (Approximate), Expi res: 12/12/2024 Start: 12-13-2023 End: 12-12-2024 Holter monitor study Holter Or Event [employer] [facility] Routine PVC (premature ventricular contraction) Expected: 12/13/2023 (Approximate), Expires: 12/12/2024 [facility] Work Phone: Comment on above: Expected: 12/13/2023 (Approximate), Expi res: 12/12/2024 Start: 12-13-2023 End: 12-12-2024 Thyrotropin [Units/volume] in Serum or Plasma Thyroid Stimulating Hormone Lab Routine Paroxysmal atrial fibrillation (Multi) 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 use Expected: 12/13/2023 (Approximate), Expires: 12/12/2024 [facility] Work Phone: Comment on above: Expected: 12/13/2023 (Approximate), Expi res: 12/12/2024 Start: 12-13-2023 End: 12-12-2025 Heart Transthoracic Transthoracic Echo Complete Echocardiography Routine Dilated cardiomyopathy (Multi) Expected: 12/13/2023 (Approximate), Expires: 12/12/2025 [facility] Service Area Work Phone: Comment on above: Expected: 12/13/2023 (Approximate), Expi res: 12/12/2025 Start: 12-09-2023 End: 12-09-2023 Follow-up encounter 12/09/2023 11:00 AM EDT Follow Up Anticoagulation [facility] Medication Therapy Management [address] [facility] [address] [facility] Medication Therapy Management Start: 11-30-2023 End: 11-30-2023 Follow-up encounter 11/30/2023 11:45 AM EDT Follow Up Anticoagulation [facility] Medication Therapy Management [address] [place] [address] [facility] Medication Therapy Management Start: 11-18-2023 End: 11-18-2023 Follow-up encounter 11/18/2023 11:30 AM EDT Follow Up Anticoagulation [facility] Medication Therapy Management [address] [place] [address] [facility] Medication Therapy Management Start: 11-11-2023 End: 11-11-2023 Follow-up encounter 11/11/2023 10:45 AM EDT Follow Up Anticoagulation [facility] Medication Therapy Management [address] [place] [address] [facility] Medication Therapy Management Start: 11-08-2023 End: 11-08-2023 Follow-up encounter 11/08/2023 9:00 AM EDT Follow Up Anticoagulation [facility] Medication Therapy Management [address] [place] [address] [facility] Start: 11-04-2023 End: 11-04-2023 Follow-up encounter 11/04/2023 1:00 PM EDT Follow Up Anticoagulation [facility] [address] [place] [address] [facility] Start: 10-31-2023 End: 10-31-2023 Clinical Support 10/31/2023 3:30 PM EDT Clinical Support [facility] [address] [place] [address] [facility] Start: 10-28-2023 End: 10-28-2023 Anticoagulant drug monitoring 10/28/2023 1:00 PM EDT New Anticoagulation [facility] [address] [place] [address] [facility] Start: 10-09-2023 COVID-19 Vaccine ( season) COVID-19 Vaccine ( season) [facility] Start: 10-09-2023 Influenza vaccination Influenza Vaccine [facility] Start: 08-04-2023 End: 08-03-2024 CBC W Auto Differential panel - Blood CBC auto differential Lab Routine Essential hypertension Paroxysmal A-fib ([facility]-HCC) Expected: 08/04/2023, Expires: 08/03/[address] [facility] Comment on above: Expected: 08/04/2023, Expires: Start: 08-04-2023 End: 08-03-2024 Comprehensive metabolic 2000 panel - Serum or Plasma Comprehensive metabolic panel Lab Routine Essential hypertension Paroxysmal A-fib (CMS-HCC) Expected: 08/04/2023, Expires: 08/03/[address] [facility] Comment on above: Expected: 08/04/2023, Expires: Start: 08-04-2023 End: 08-03-2024 Lipid 1996 panel - Serum or Plasma Lipid profile Lab Routine Essential hypertension Paroxysmal A-fib ([facility]-HCC) Expected: 08/04/2023, Expires: 08/03/[address] [facility] Comment on above: Expected: 08/04/2023, Expires: Start: 08-04-2023 End: 08-03-2024 Thyroid profile includes TSH FT4 Thyroid profile includes TSH FT4 Lab Routine Essential hypertension Paroxysmal A-fib ([facility]-HCC) Expected: 08/04/2023, Expires: 08/03/[address] [facility] Comment on above: Expected: 08/04/2023, Expires: Start: 08-04-2023 End: 08-04-2023 Patient encounter procedure 08/04/2023 9:30 AM EDT Office Visit [facility] [address] [place] [address] Andrei Wiseman MD [address] [place], [place] [phone] [facility] Start: 08-03-2023 Medicare Annual Wellness Visit Medicare Annual Wellness Visit [facility] Start: 05-24-2023 End: 05-24-2023 Patient encounter procedure 05/24/2023 9:10 AM EDT Office Visit [facility] [address] [place] [phone] Jose Martin Jones MD [address] [facility] [address] [place] [address] [facility] Start: 04-14-2023 COVID-19 Vaccine ( season) COVID-19 Vaccine () [facility] Start: 03-14-2023 End: 03-14-2023 Professional / ancillary services management 03/14/2023 3:00 PM EST Ancillary Procedure [facility] [address] [place] [phone] [facility] Start: 03-14-2023 End: 03-14-2023 Patient encounter procedure 03/14/2023 2:15 PM EST Appointment [facility] [address] [place] [phone] [facility] Start: 03-14-2023 End: 03-14-2023 Patient encounter procedure [facility] Start: 03-01-2023 End: 03-01-2024 Holter monitor study Holter Or Event [facility] [employer] [employer] [facility] Routine Sick sinus syndrome (CMS/HCC) Paroxysmal atrial fibrillation (CMS/HCC) Expected: 03/01/2023 (Approximate), Expires: 03/01/2024 [facility] Service Area Work Phone: Comment on above: Expected: 03/01/2023 (Approximate), Expi res: 03/01/2024 Start: 03-01-2023 End: 03-01-2025 NM Heart Perfusion W stress and W radionuclide IV Nuclear Stress Test Cardiac Nuclear Medicine Routine Other cardiomyopathy (CMS/HCC) Paroxysmal atrial fibrillation (CMS/HCC) Essential hypertension, benign Abnormal electrocardiogram (ECG) (EKG) Expected: 03/01/2023 (Approximate), Expires: 03/01/2025 [facility] Work Phone: Comment on above: Expected: 03/01/2023 (Approximate), Expi res: 03/01/2025 Start: 03-01-2023 End: 03-01-2023 Patient encounter procedure 03/01/2023 12:30 PM EST Office Visit [facility] [address] [place] [phone] Delilah Turner, 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 [address] [facility] [address] [place] [address] [facility] Start: 02-21-2023 End: 02-22-2024 Basic metabolic 2000 panel - Serum or Plasma Basic Metabolic Panel Lab Routine Cardiomyopathy, unspecified type (CMS/HCC) 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 use Sick sinus syndrome (CMS/HCC) Expected: 02/21/2023 (Approximate), Expires: 02/22/2024 [facility] Service Area Work Phone: Comment on above: Expected: 02/21/2023 (Approximate), Expi res: 02/22/2024 Start: 02-21-2023 End: 02-22-2024 Thyrotropin [Units/volume] in Serum or Plasma Thyroid Stimulating Hormone Lab Routine Cardiomyopathy, unspecified type (CMS/HCC) 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 use Sick sinus syndrome (CMS/HCC) Expected: 02/21/2023 (Approximate), Expires: 02/22/2024 [facility] Work Phone: Comment on above: Expected: 02/21/2023 (Approximate), Expi res: 02/22/2024 Start: 02-21-2023 End: 02-21-2023 Patient encounter procedure 02/21/2023 10:30 AM EST Office Visit [address] [place] [phone] Delilah Turner, 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 [address] [facility] [address] [place] [address] [facility] Start: 02-08-2023 COVID-19 Vaccine (4 - Pfizer series) COVID-19 Vaccine (4 - Pfizer series) [facility] Start: 01-21-2023 End: 01-21-2023 Patient encounter procedure 01/21/2023 10:45 AM EST Appointment [address] [place] [phone] [facility] Start: 01-17-2023 End: 01-18-2024 Basic metabolic 2000 panel - Serum or Plasma Basic Metabolic Panel Lab Routine Cardiomyopathy, unspecified type (CMS/HCC) Expected: 01/17/2023 (Approximate), Expires: 01/18/2024 [facility] Work Phone: Comment on above: Expected: 01/17/2023 (Approximate), Expi res: 01/18/2024 Start: 01-17-2023 End: 01-18-2024 Holter monitor study Holter Or Event [facility] [employer] [facility] Routine Paroxysmal atrial fibrillation (CMS/HCC) Expected: 01/17/2023 (Approximate), Expires: 01/18/2024 [facility] Work Phone: Comment on above: Expected: 01/17/2023 (Approximate), Expi res: 01/18/2024 Start: 01-17-2023 End: 01-18-2024 Natriuretic peptide B [Mass/volume] in Blood B-Type Natriuretic Peptide Lab Routine Cardiomyopathy, unspecified type (CMS/HCC) Expected: 01/17/2023 (Approximate), Expires: 01/18/2024 [facility] Work Phone: Comment on above: Expected: 01/17/2023 (Approximate), Expi res: 01/18/2024 Start: 01-17-2023 End: 01-17-2025 [facility] Transthoracic Transthoracic Echo (TTE) Complete Echocardiography Routine Cardiomyopathy, unspecified type (CMS/HCC) Abnormal electrocardiogram (ECG) (EKG) Expected: 01/17/2023 (Approximate), Expires: 01/17/2025 [facility] Service Area Work Phone: Comment on above: Expected: 01/17/2023 (Approximate), Expi res: 01/17/2025 Start: 01-17-2023 FUV, Provider: Delilah Nassar, Status: Pen, Time: 9:30 AM FUV, Provider: Delilah Nassar, Status: Pen, Time: 9:30 AM -[facility] [address] DO Work Phone: Start: 10-08-2022 Influenza vaccination Influenza Vaccine [facility] Start: 10-08-2022 Screening for osteoporosis Bone Density Scan [facility] Start: 08-31-2022 Echocardiography Echocardiogram [facility] Start: 08-06-2022 FUV, Provider: Jose Martin Jones, Status: Pen, Time: 2:00 PM FUV, Provider: Jose Martin Jones, Status: Pen, Time: 2:00 PM -[facility] [address] DO Work Phone: Start: 11-10-2021 HOLTER MON, Provider: PARKER DUGAN ROOM ATTENDANTS 1,[id number], Status: Pen, Time: 10:00 AM HOLTER MON, Provider: PARKER DUGAN ROOM ATTENDANTS 1,[id number], Status: Pen, Time: 10:00 AM [facility] 250 DO Work Phone: Start: 10-21-2021 FUV, Provider: Delilah Nassar, Status: Pen, Time: 9:00 AM FUV, Provider: Delilah Nassar, Status: Pen, Time: 9:00 AM [facility] 250 DO Work Phone: Start: 10-08-2021 Screening for osteoporosis Bone Density Scan [facility] Start: 09-21-2021 STRESS NUC, Provider: TANISHA HHVI NUCLEAR 01,[id number], Status: Pen, Time: 12:00 PM STRESS NUC, Provider: TANISHA HHVI NUCLEAR 01,[id number], Status: Pen, Time: 12:00 PM [facility] [address] DO Work Phone: Start: 09-14-2021 EKG, Provider: PARKER DUGAN ROOM ATTENDANTS 1,[id number], Status: Pen, Time: 11:00 AM EKG, Provider: PARKER DUGAN ROOM ATTENDANTS 1,[id number], Status: Pen, Time: 11:00 AM -[facility] [address] DO Work Phone: Start: 09-07-2021 FUV, Provider: Delilah Nassar, Status: Pen, Time: 11:30 AM FUV, Provider: Delilah Nasasr, Status: Pen, Time: 11:30 AM [facility] 250 DO Work Phone: Start: 08-31-2021 ECHO, Provider: TANISHA ZIA ULTRASOUND ,[id number], Status: Pen, Time: 10:45 AM ECHO, Provider: TANISHA MARLYSI ULTRASOUND ,[id number], Status: Pen, Time: 10:45 AM [facility] [address] DO Work Phone: Start: 2020 RSV High Risk: (Elderly (60+) or Population) (1 - 1-dose 75+ series) RSV High Risk: (Elderly (60+) or Population) (1 - 1-dose 75+ series) [facility] Start: 01-28-2012 Screening for malignant neoplasm of colon Colonoscopy [facility] [employer] Start: 09-05-1967 DTaP/Tdap/Td Vaccines (1 - Tdap) DTaP/Tdap/Td Vaccines (1 - Tdap) [facility] Start: 1964 DTaP,Tdap and Td Vaccines (1 - Tdap) DTaP,Tdap and Td Vaccines (1 - Tdap) [facility] Start: 09-05-1963 Adult BMI Follow Up Plan Adult BMI Follow Up Plan [facility] Start: 09-05-1963 Diabetes mellitus screening Diabetes Screening [facility] Start: 09-05-1963 Hepatitis C screening Hepatitis C Screening [facility] Start: 1945 Creatinine measurement Creatinine Level [facility] Start: 1945 Lipid panel Lipid Panel [facility] Start: 1945 Medicare Annual Wellness Visit Medicare Annual Wellness Visit (AWV) [facility] Start: 1945 Potassium measurement Potassium Level [facility] Start: 1945 Skin Cancer Screening Skin Cancer Screening [facility] Start: 1945 Thyroid stimulating hormone measurement TSH Level [facility] End: 08-03-2024 DBT Breast - bilateral screening Mammography screening bilateral with CAD Imaging Routine Encounter for screening mammogram for malignant neoplasm of breast 1 Occurrences starting 08/04/2023 until 08/03/2024 [facility] Work Phone: Comment on above: 1 Occurrences starting 08/04/2023 until 08/03/2024 ECG 12 Lead ECG 12 Lead ECG Routine Paroxysmal atrial fibrillation (CMS/HCC) 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 use 01/17/2023 10:04 AM [facility] Work Phone: ECG 12 Lead ECG 12 Lead ECG Routine Sick sinus syndrome (CMS/HCC) 02/21/2023 10:30 AM [facility] Work Phone: ECG 12 Lead ECG 12 Lead ECG Routine 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 use 03/01/2023 12:30 PM [facility] Work Phone: Patient Education Shortness of b reath International Normalized Ratio Anxiety, Adult ED [facility] Work Phone: Patient referral [facility] Work Phone: End: 01-21-2023 [facility] Service Area Work Phone: Comment on above: Once for 1 Occurrences starting 01/22/20 until 01/21/2023 Immunizations Immunization Date Immunization Notes Care Provider Lani jean 11-27-2023 influenza, high dose seasonal, preservative-free Pmh [address] [facility] 11-27-2023 influenza virus vacc ine, unspecified formulation Pmh [address] [facility] 12-14-2022 Influenza, High-dose , Quadrivalent Pmh [address] [facility] 08-20-2022 zoster vaccine recombinant Andrei Wiseman MD Work Phone: 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 Work Phone: 11-10-2021 influenza, seasonal, injectable Andrei Wiseman Work Phone: [facility] 250 DO Work Phone: Comment on above: Series: 11-10-2021 influenza virus vacc ine, unspecified formulation Andrei Wiseman MD Work Phone: 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 Work Phone: 10-23-2021 Moderna COVID-19 Biv al Booster 50 MCG/0.5ML Intramuscular Suspension Andrei Wiseman Work Phone: [facility] 250 DO Work Phone: 12-19-2020 Pfizer-BioNTech COVI D-19 Vacc 30 MCG/0.3ML Intramuscular Suspension Andrei Wiseman Work Phone: 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 04-22-2020 Pfizer-BioNTech COVI D-19 Vacc 30 MCG/0.3ML Intramuscular Suspension Andrei Wiseman Work Phone: [facility] 04-07-2020 SARS-CoV-2 (COVID-19 ) mRNA BNT-162b2 vax Allyson SALEEM [facility] 04-01-2020 Pfizer-BioNTech COVI D-19 Vacc 30 MCG/0.3ML Intramuscular Suspension Andrei Wiseman Work Phone: [facility] 03-10-2020 SARS-CoV-2 (COVID-19 ) mRNA BNT-162b2 vax Allyson SALEEM [facility] 11-11-2019 AS03 adjuvant Andrei Wiseman MD Work Phone: [facility] 11-11-2019 Fluad Quadrivalent 0 .5 ML Intramuscular Prefilled Syringe Andrei Wiseman Work Phone: [facility] 11-11-2019 Seasonal trivalent influenza vaccine, adjuvanted, preservative free Andrei Wiseman MD Work Phone: [facility] 12-11-2018 Influenza, injectabl e, Madin [place] Canine Kidney, quadrivalent with preservative Andrei Wiseman Work Phone: [facility] 12-11-2018 Influenza, injectabl e, Madin [place] Canine Kidney, preservative free, quadrivalent Andrei Wiseman MD Work Phone: [facility] 11-24-2017 AS03 adjuvant Andrei Wiseman MD Work Phone: [facility] 11-24-2017 influenza virus vacc ine, unspecified formulation Andrei Wiseman MD Work Phone: [facility] 11-24-2017 pneumococcal polysaccharide vaccine, 23 valent Andrei Wiseman Work Phone: [facility] 11-24-2017 Seasonal trivalent influenza vaccine, adjuvanted, preservative free Andrei Wiseman Work Phone: [facility] 11-16-2016 influenza virus vacc ine, unspecified formulation Andrei Wiseman MD Work Phone: [facility] 11-16-2016 influenza, high dose seasonal, preservative-free Andrei Wiseman Work Phone: [facility] 11-16-2016 pneumococcal conjuga te vaccine, 13 valent Andrei Wiseman Work Phone: [facility] 11-20-2014 influenza, injectabl e, quadrivalent, preservative free Andrei Overton Defrance Work Phone: [facility] 11-11-2014 influenza virus vacc ine, unspecified formulation Andrei Wiseman MD Work Phone: [facility] 11-11-2014 influenza, high dose seasonal, preservative-free Andrei Overton Defrance Work Phone: [facility] [employer] 250 DO Work Phone: 01-10-2014 influenza virus vacc ine, unspecified formulation Andrei Wiseman MD Work Phone: [facility] 01-10-2014 influenza, high dose seasonal, preservative-free Andrei Overton Defrance Work Phone: [facility] [place] DO Work Phone: 07-26-2012 pneumococcal polysaccharide vaccine, 23 valent Andrei Overton Defrance [facility] Work Phone: Payers Date Payer Category Payer Self-pay [id number] 2018 Commercial Managed C are - POS [employer] [id number] 2018 Medicare supplementa l policy (as second payer) [employer] SENIOR SUPPLEMENT [id number] 5 2018 Private Health Insurance [id number] .[id number] 2010 Medicare [id number] .[id number] 1959 Medicare [id number] 1959 Private Health Insurance [facility] [id number] 1945 Unknown [id number] 2.840.1.910118.3.579 .2.593 1945 Unknown [id number] 2.840.1.990365.3.579 .2.593 1945 Unknown [id number] 2.16840.1.254453.3.579 .2.593 1945 Unknown [id number] 2.840.1.773662.3.579 .2.593 1945 Unknown [id number] 2.840.1.914961.3.579 .2.593 1945 Unknown [id number] 2.16840.1.061133.3.579 .2.593 1945 Unknown [id number] 2.16840.1.174222.3.579 .2.1068 1945 Unknown [id number] 2.840.1.115999.3.579 .2.1068 1945 Unknown [id number] 2.16840.1.066421.3.579 .2.1068 1945 Unknown [id number] 2.16.840.1.818008.3.579 .2.356 1945 Unknown [id number] 2.16.840.1.212273.3.579 .2.356 1945 Unknown [id number] 2.16.840.1.534346.3.579 .2.356 1945 Unknown [id number] 2.16.840.1.127524.3.579 .2.356 1945 Unknown [id number] 2.16.840.1.146334.3.579 .2.356 1945 Unknown [id number] 2.16840.1.835933.3.579 .2.356 1945 Unknown [id number] 2.16.840.1.309879.3.579 .2.356 1945 Unknown [id number] 2.16840.1.960453.3.579 .2.1245 1945 Unknown [id number] 2.16.840.1.534890.3.579 .2.1245 1945 Unknown [id number] 2.16.840.1.114539.3.579 .2.1245 1945 Unknown [id number] 2.16.840.1.231487.3.579 .2.1245 1945 Unknown [id number] 2.16840.1.791212.3.579 .2.1245 1945 Unknown [id number] 2.16.840.1.324720.3.579 .2.124 1945 Unknown [id number] 2.16.840.1.260888.3.579 .2.1245 1945 Unknown [id number] 2.16.840.1.976624.3.579 .2.1286 1945 Unknown [id number] 2.16.840.1.426593.3.579 .2.128 1945 Unknown [id number] 2.16.840.1.869946.3.579 .2.128 1945 Unknown [id number] 2.16.840.1.868808.3.579 .2.72 1945 Unknown [id number] 2.16.840.1.121171.3.579 .2. 1945 Unknown [id number] 2.16.840.1.749713.3.579 .2.72 1945 Unknown [id number] 2.16.840.1.576000.3.579 .2.1285 1945 Unknown [id number] 2.16.840.1.808393.3.579 .2.1285 1945 Unknown [id number] 2.16.840.1.652838.3.579 .2.1285 1945 Unknown [id number] 2.16.840.1.218396.3.579 .2.1285 1945 Unknown [id number] 2.16.840.1.244984.3.579 .2.1285 1945 Unknown [id number] 2.16.840.1.019484.3.579 .2.1285 1945 Unknown [id number] 2.16.840.1.045305.3.579 .2.128 1945 Unknown [id number] 2.16.840.1.609230.3.579 .2.128 1945 Unknown [id number] 2.16.840.1.419242.3.579 .2.1285 1945 Unknown [id number] 2.16.840.1.555783.3.579 .2.1285 1945 Unknown [id number] 2.16.840.1.464863.3.579 .2.1286 Unknown [id number] 2.16840.1.543404.3.579 .2.1285 1945 Unknown [id number] 2.16840.1.281114.3.579 .2.1285 1945 Unknown [id number] 2.16840.1.272664.3.579 .2.1285 1945 Unknown [id number] 2.840.1.338750.3.579 .2.1285 1945 Unknown [id number] 2.840.1.367061.3.579 .2.1285 1945 Unknown [id number] 2.840.1.795381.3.579 .2.1285 1945 Unknown [id number] 2.0.1.008177.3.579 .2.1285 1945 Unknown [id number] 2.840.1.710265.3.579 .2.1285 1945 Unknown [id number] 2.0.1.357203.3.579 .2.1285 1945 Unknown [id number] 2.840.1.985384.3.579 .2.1285 1945 Unknown [id number] 2.840.1.918589.3.579 .2.1285 1945 Unknown [id number] 2.840.1.777378.3.579 .2.1285 1945 Unknown [id number] 2.840.1.900735.3.579 .2.1285 1945 Unknown [id number] 2.16840.1.955171.3.579 .2.1285 1945 Unknown [id number] 2.840.1.886976.3.579 .2.1285 1945 Unknown [id number] 2.840.1.863373.3.579 .2.1285 1945 Unknown [id number] 2.840.1.425206.3.579 .2.1285 1945 Unknown [id number] 2.840.1.456319.3.579 .2.1285 1945 Unknown [id number] 2.840.1.363767.3.579 .2.1285 1945 Unknown [id number] 2.840.1.366657.3.579 .2.1285 1945 Unknown [id number] 2.0.1.285745.3.579 .2.1285 1945 Unknown [id number] 2.0.1.782510.3.579 .2.1285 1945 Unknown [id number] 2.0.1.384024.3.579 .2.1285 1945 Unknown [id number] 2.0.1.699079.3.579 .2.727 1945 Unknown [id number] 2.0.1.738137.3.579 .2.1243 1945 Unknown [id number] 2.0.1.257267.3.579 .2.1243 1945 Unknown [id number] 2.840.1.468345.3.579 .2.1243 1945 Unknown [id number] 2.840.1.385460.3.579 .2.1244 Medicare [id number] Unknown Unknown HCAP/HFA/FAP Active [id number] Unknown [id number] 2.840.1.569047.3.579 .2.531 Unknown [id number] 2.840.1.135873.3.579 .2.531 Unknown [id number] 2.16.840.1.941186.3.579 .2.531 Unknown [id number] 2.16.840.1.303332.3.579 .2.531 Social History Date Type Detail Facility Start: 02-21-2020 End: 01-17-2023 Occasional alcohol use Occasional alcohol use [facility] 250 DO Work Phone: Comment on above: Occasional soda 3 A WEEK OCCASIONAL TEA; Start: 1945 Sex Assigned At Female [facility] Start: 09-13-2022 End: 09-16-2023 Tobacco smoking status Never smoked tobacco (finding) [facility] Tobacco smoking status Never [facility] Start: 02-21-2020 End: 01-17-2023 Sex Assigned At Female [facility] Start: 01-19-2022 End: 01-14-2023 Tobacco use and exposure Smokeless tobacco non-user [facility] Work Phone: Start: 01-17-2023 Alcohol intake Current drinke r of alcohol (finding) [facility] Work Phone: Start: 01-17-2023 Alcohol Comment almost none [facility] Work Phone: Start: 1945 Sex Assigned At Not on file [facility] Work Phone: Start: 01-07-2023 End: 12-13-2023 Exposure to SARS-CoV-2 (event) Not sure [facility] Start: 02-21-2023 End: 08-01-2024 Alcohol intake Lifetime non-drinker (finding) [facility] Work Phone: Start: 01-25-2024 End: 08-08-2024 Alcoholic beverage intake Current [facility]-drinker [facility] (finding[facility] Start: 09-12-2014 End: 11-13-2018 Sex Female (finding) [facility] Sexual Orientation [facility] Goals Date Patient Goal Desired Activity /State Personal health goal Comment on above: Formatting of this n ote might be different from the original. Evaluation of progress towards goal: return home independent like prior to admission Functional Status Date Assessment Result Facility 09-16-2023 Functional Status N/A [facility] 09-13-2022 Functional Status N/A [facility] Clinical Notes 10-08-2020 to 09-17-2024 Olinda Elena, [facility] - 09/12/2024 2:00 PM EDIraj Elena[facility] [facility] - 08/15/2024 1:45 PM ANDREWTJerome Quick MD - 08/08/2024 1:00 PM EDTTelephone Encounter - Ashley Keene CMA - 08/03/2024 10:01 AM EDT Note Date & Type Note Facility 09-17-2024 Hospital Discharge instructions Patient Education 09/17/2024 11:06:42 Cystoscopy Cystoscopy Cystoscopy is a procedure that is used to help diagnose and sometimes treat conditions that affect the lower urinary tract. The lower urinary tract includes the bladder and the urethra. The urethra is the tube that drains urine from the bladder. Cystoscopy is done using a thin, tube-shaped instrument with a light and camera at the end (cystoscope). The cystoscope may be hard or flexible, depending on the goal of the procedure. The cystoscope is inserted through the urethra, into the bladder. Cystoscopy may be recommended if you have: Urinary tract infections that keep coming back. Blood in the urine (hematuria). An inability to control when you urinate (urinary incontinence) or an overactive bladder. Unusual cells found in a urine sample. A blockage in the urethra, such as a urinary stone. Painful urination. An abnormality in the bladder found during an intravenous pyelogram (IVP) or CT scan. Cystoscopy may also be done to remove a sample of tissue to be examined under a microscope (biopsy). Tell a health care provider about: Any allergies you have. All medicines you are taking, including vitamins, herbs, eye drops, creams, and eizk-pch-bjnemqv medicines. Any problems you or family members have had with anesthetic medicines. Any blood disorders you have. Any surgeries you have had. Any medical conditions you have. Whether you are or may be . What are the risks? Generally, this is a safe procedure. However, problems may occur, including: Infection. Bleeding. Allergic reactions to medicines. Damage to other structures or organs. What happens before the procedure? Medicines Ask your health care provider about: Changing or stopping your regular medicines. This is especially important if you are taking diabetes medicines or blood thinners. Taking medicines such as aspirin and ibuprofen. These medicines can thin your blood. Do not take these medicines unless your health care provider tells you to take them. Taking tjpb-ltn-tueiuuo medicines, vitamins, herbs, and supplements. Tests You may have an exam or testing, such as: X-rays of the bladder, urethra, or kidneys. CT scan of the abdomen or pelvis. Urine tests to check for signs of infection. General instructions Follow instructions from your health care provider about eating or drinking restrictions. Ask your health care provider what steps will be taken to help prevent infection. These steps may include: ?Washing skin with a germ-killing soap. ?Taking antibiotic medicine. Plan to have a responsible adult take you home from the hospital or clinic. What happens during the procedure? You will be given one or more of the following: ?A medicine to help you relax (sedative). ?A medicine to numb the area (local anesthetic). The area around the opening of your urethra will be cleaned. The cystoscope will be passed through your urethra into your bladder. Germ-free (sterile) fluid will flow through the cystoscope to fill your bladder. The fluid will stretch your bladder so that your health care provider can clearly examine your bladder thomason. Your doctor will look at the urethra and bladder. Your doctor may take a biopsy or remove stones. The cystoscope will be removed, and your bladder will be emptied. The procedure may vary among health care providers and hospitals. What can I expect after the procedure? After the procedure, it is common to have: Some soreness or pain in your abdomen and urethra. Urinary symptoms. These include: ?Mild pain or burning when you urinate. Pain should stop within a few minutes after you urinate. This may last for up to 1 week. ?A small amount of blood in your urine for several days. ?Feeling like you need to urinate but producing only a small amount of urine. Follow these instructions at home: Medicines Take iipx-dpq-azqodlj and prescription medicines only as told by your health care provider. If you were prescribed an antibiotic medicine, take it as told by your health care provider. Do not stop taking the antibiotic even if you start to feel better. General instructions Return to your normal activities as told by your health care provider. Ask your health care provider what activities are safe for you. If you were given a sedative during the procedure, it can affect you for several hours. Do not drive or operate machinery until your health care provider says that it is safe. Watch for any blood in your urine. If the amount of blood in your urine increases, call your health care provider. Follow instructions from your health care provider about eating or drinking restrictions. If a tissue sample was removed for testing (biopsy) during your procedure, it is up to you to get your test results. Ask your health care provider, or the department that is doing the test, when your results will be ready. Drink enough fluid to keep your urine pale yellow. Keep all follow-up visits. This is important. Contact a health care provider if: You have pain that gets worse or does not get better with medicine, especially pain when you urinate. You have trouble urinating. You have more blood in your urine. Get help right away if: You have blood clots in your urine. You have abdominal pain. You have a fever or chills. You are unable to urinate. Summary Cystoscopy is a procedure that is used to help diagnose and sometimes treat conditions that affect the lower urinary tract. Cystoscopy is done using a thin, tube-shaped instrument with a light and camera at the end. After the procedure, it is common to have some soreness or pain in your abdomen and urethra. Watch for any blood in your urine. If the amount of blood in your urine increases, call your health care provider. If you were prescribed an antibiotic medicine, take it as told by your health care provider. Do not stop taking the antibiotic even if you start to feel better. This information is not intended to replace advice given to you by your health care provider. Make sure you discuss any questions you have with your health care provider. Document Revised: 10/07/2021 Document Reviewed: 09/05/2020 [employer] Patient Education 2023 [employer]. 09/17/2024 11:06:38 Urethral Dilation Urethral Dilation Urethral dilation is a procedure to stretch open (dilate) the urethra. The urethra is the tube that drains pee (urine) from the bladder out of the body. In females, the urethra opens above the vaginal opening. In males, the urethra opens at the tip of the penis. Urethral dilation is usually done to treat narrowing of the urethra (urethral stricture), which can make it difficult to pee (urinate). Urethral strictures can be caused by scar tissue, infection, injury, or surgery. Urethral dilation widens the urethra so that you can pee normally. Urethral dilation is done through the opening of the urethra. There are no incisions made during the procedure. Tell a health care provider about: Any allergies you have. All medicines you are taking, including vitamins, herbs, eye drops, creams, and kaxw-grk-csbnczw medicines. Any problems you or family members have had with anesthesia. Any bleeding problems you have. Any surgeries you have had. Any medical conditions you have. Whether you are or may be . What are the risks? Your health care provider will talk with you about risks. These may include: Bleeding. Infection. A return of urethral stricture, which requires repeating the dilation procedure or more surgery. Damage to the urethra, which may require reconstructive surgery. Allergic reactions to medicines. What happens before the procedure? Medicines Ask your provider about: Changing or stopping your regular medicines. These include any diabetes medicines or blood thinners you take. Taking medicines such as aspirin and ibuprofen. These medicines can thin your blood. Do not take them unless your provider tells you to. Taking jzmi-qqd-cvqsxqf medicines, vitamins, herbs, and supplements. General instructions Follow instructions from your provider about what you may eat and drink. If you will be going home right after the procedure, plan to have a responsible adult: ?Take you home from the hospital or clinic. You will not be allowed to drive. ?Care for you for the time you are told. Ask your provider: ?How your surgery site will be marked. ?What steps will be taken to help prevent infection. These steps may include: ?Removing hair at the surgery site. ?Washing skin with a soap that kills germs. ?Taking antibiotics. What happens during the procedure? An IV may be inserted into one of your veins. You may be given: ?A local anesthetic to numb your urethral opening. This will be applied as a gel that will also lubricate the opening of the urethra. ?A sedative. This helps you relax. ?Anesthesia. This keeps you from feeling pain. It will make you fall asleep for surgery. A thin tube with a light and camera on the end (cystoscope) will be inserted into your urethra. Your urethra will be rinsed (irrigated) with a germ-free (sterile) water solution. Narrow parts of your urethra will be stretched open using a dilator tool. Your surgeon will start with a very thin dilator, then use wider dilators as needed. A thin tube with an inflatable balloon on the tip may be inserted into your urethra. The balloon may be inflated to help stretch your urethra open. The balloon may be coated with a medicine to help the urethra stay open longer. Your urethra will be irrigated. A catheter will be inserted into your bladder at the end of the procedure. The procedure may vary among providers and hospitals. What happens after the procedure? After the procedure, it is common to have: ?Burning pain when peeing. ?Blood in your pee. ?A need to pee frequently. You will be asked to pee before you leave the hospital or clinic. Your pee flow should improve within a few days. You may have a catheter in your bladder for 2 3 days following your procedure. Follow these instructions at home: Medicines Take ifxw-opj-bhjscnq and prescription medicines only as told by your provider. If you were prescribed antibiotics, take them as told by your provider. Do not stop using the antibiotic even if you start to feel better. Ask your provider if the medicine prescribed to you: ?Requires you to avoid driving or using machinery. ?Can cause constipation. You may need to take these actions to prevent or treat constipation: ?Take hwid-iux-twljksh or prescription medicines. ?Eat foods that are high in fiber, such as beans, whole grains, and fresh fruits and vegetables. ?Limit foods that are high in fat and processed sugars, such as fried or sweet foods. General instructions If you were given a sedative during the procedure, it can affect you for several hours. Do not drive or operate machinery until your provider says that it is safe. If you were sent home with a soft tube (catheter) to help keep your urethra open, follow your provider's instructions about how and when to use it. Drink enough fluid to keep your pee pale yellow. Return to your normal activities as told by your provider. Ask your provider what activities are safe for you. Keep all follow-up visits. Your provider will check your healing and adjust your treatment plan as needed. Contact a health care provider if: Your pee is cloudy and smells bad. You develop new bleeding when you pee. You pass blood clots when you pee. You have pain that does not get better with medicine. You have a fever. Your genital area is swollen, bruised, or discolored. This includes: ?The penis, scrotum, and inner thighs for males. ?The outer genital organs (vulva) and inner thighs for females. Get help right away if: You develop new bleeding that does not stop. You cannot pee. Your catheter stops draining pee. You cannot pee after your catheter is removed. These symptoms may be an emergency. Get help right away. Call 911. Do not wait to see if the symptoms will go away. Do not drive yourself to the hospital. This information is not intended to replace advice given to you by your health care provider. Make sure you discuss any questions you have with your health care provider. Document Revised: 11/18/2022 Document Reviewed: 11/18/2022 [employer] Patient Education 2023 [employer]. 09/17/2024 11:02:54 Dietary Guidelines to Help Prevent Kidney Stones Dietary Guidelines to Help Prevent Kidney Stones Kidney stones are deposits of minerals and salts that form inside your kidneys. Your risk of developing kidney stones may be greater depending on your diet, your lifestyle, the medicines you take, and whether you have certain medical conditions. Most people can lower their risks of developing kidney stones by following these dietary guidelines. Your dietitian may give you more specific instructions depending on your overall health and the type of kidney stones you tend to develop. What are tips for following this plan? Reading food labels Choose foods with no salt added or low-salt labels. Limit your salt (sodium) intake to less than 1,500 mg a day. Choose foods with calcium for each meal and snack. Try to eat about 300 mg of calcium at each meal. Foods that contain 200 500 mg of calcium a serving include: ?8 oz (237 mL) of milk, ulyuhnb-eoccsagegfpe-mgbzx milk, and calcium-fortifiedfruit juice. Calcium-fortified means that calcium has been added to these drinks. ?8 oz (237 mL) of kefir, yogurt, and soy yogurt. ?4 oz (114 g) of tofu. ?1 oz (28 g) of cheese. ?1 cup (150 g) of dried figs. ?1 cup (91 g) of cooked broccoli. ?One 3 oz (85 g) can of sardines or mackerel. Most people need 1,000 1,500 mg of calcium a day. Talk to your dietitian about how much calcium is recommended for you. Shopping Buy plenty of fresh fruits and vegetables. Most people do not need to avoid fruits and vegetables, even if these foods contain nutrients that may contribute to kidney stones. When shopping for convenience foods, choose: ?Whole pieces of fruit. ?Pre-made salads with dressing on the side. ?Low-fat fruit and yogurt smoothies. Avoid buying frozen meals or prepared deli foods. These can be high in sodium. Look for foods with live cultures, such as yogurt and kefir. Choose high-fiber grains, such as whole-wheat breads, oat bran, and wheat cereals. Cooking Do not add salt to food when cooking. Place a salt shaker on the table and allow each person to add their own salt to taste. Use vegetable protein, such as beans, textured vegetable protein (TVP), or tofu, instead of meat in pasta, casseroles, and soups. Meal planning Eat less salt, if told by your dietitian. To do this: ?Avoid eating processed or pre-made food. ?Avoid eating fast food. Eat less animal protein, including cheese, meat, poultry, or fish, if told by your dietitian. To do this: ?Limit the number of times you have meat, poultry, fish, or cheese each week. Eat a diet free of meat at least 2 days a week. ?Eat only one serving each day of meat, poultry, fish, or seafood. ?When you prepare animal proteins, cut pieces into small portion sizes. For most meat and fish, one serving is about the size of the palm of your hand. Eat at least five servings of fresh fruits and vegetables each day. To do this: ?Keep fruits and vegetables on hand for snacks. ?Eat one piece of fruit or a handful of berries with breakfast. ?Have a salad and fruit at lunch. ?Have two kinds of vegetables at dinner. You may be told to limit foods that are high in a substance called oxalate. These include: ?Spinach (cooked), rhubarb, beets, sweet potatoes, and [place] chard. ?Peanuts. ?Potato chips, vincentian fries, and baked potatoes with skin on. ?Nuts and nut products. ?Chocolate. If you regularly take a diuretic medicine, make sure to eat at least 1 or 2 servings of fruits or vegetables that are high in potassium each day. These include: ?Avocado. ?Banana. ?[place], prune, carrot, or tomato juice. ?Baked potato. ?Cabbage. ?Beans and split peas. Lifestyle Drink enough fluid to keep your urine pale yellow. This is the most important thing you can do. Spread your fluid intake throughout the day. If you drink alcohol: ?Limit how much you have to: ?0 1 drink a day for women who are not . ?0 2 drinks a day for men. ?Know how much alcohol is in your drink. In the [place] one drink equals one 12 oz bottle of beer (355 mL), one 5 oz glass of wine (148 mL), or one 1 oz glass of hard liquor (44 mL). Lose weight if told by your health care provider. Work with your dietitian to find an eating plan and weight loss strategies that work best for you. General information Talk to your health care provider and dietitian about taking daily supplements. Depending on your health and the cause of your kidney stones, you may be told: ?Do not take high-dose supplements of vitamin C (1,000 mg a day or more). ?To take a calcium supplement. ?To take a daily probiotic supplement. ?To take other supplements such as magnesium, fish oil, or vitamin B6. Take aeni-bqy-ypmthhr and prescription medicines only as told by your health care provider. These include supplements. What foods should I limit? Limit your intake of the following foods, or eat them as told by your dietitian. Vegetables Spinach. Rhubarb. Beets. Canned vegetables. Pickles. Olives. Baked potatoes with skin. Grains Wheat bran. Baked goods. Salted crackers. Cereals high in sugar. Meats and other proteins Nuts. Nut butters. Large portions of meat, poultry, or fish. Salted, precooked, or cured meats, such as sausages, meat loaves, and hot dogs. Dairy Cheeses. Beverages Regular soft drinks. Regular vegetable juice. Seasonings and condiments Seasoning blends with salt. Salad dressings. Soy sauce. Ketchup. Barbecue sauce. Other foods Canned soups. Canned pasta sauce. Casseroles. Pizza. Lasagna. Frozen meals. Potato chips. Afghan fries. The items listed above may not be a complete list of foods and beverages you should limit. Contact a dietitian for more information. What foods should I avoid? Talk to your dietitian about specific foods you should avoid based on the type of kidney stones you have and your overall health. Fruits Grapefruit. The item listed above may not be a complete list of foods and beverages you should avoid. Contact a dietitian for more information. Summary Kidney stones are deposits of minerals and salts that form inside your kidneys. You can lower your risk of kidney stones by making changes to your diet. The most important thing you can do is drink enough fluid. Drink enough fluid to keep your urine pale yellow. Talk to your dietitian about how much calcium you should have each day, and eat less salt and animal protein as told by your dietitian. This information is not intended to replace advice given to you by your health care provider. Make sure you discuss any questions you have with your health care provider. Document Revised: 05/06/2022 Document Reviewed: 05/06/2022 [employer] Patient Education 2023 [employer]. Follow Up Care 09/16/2023 11:13:59 With:HARPER DE LA ROSA, Allyson Montenegro, URL Address: [address] [place], [place] [address], [place] [address] When: Unknown Comments:sched cysto/UD [facility] 09-17-2024 Note Patient Education Nephrology Dietary Guidelines to Help Prevent Kidney Stones Kidney stones are deposits of minerals and salts that form inside your kidneys. Your risk of developing kidney stones may be greater depending on your diet, your lifestyle, the medicines you take, and whether you have certain medical conditions. Most people can lower their risks of developing kidney stones by following these dietary guidelines. Your dietitian may give you more specific instructions depending on your overall health and the type of kidney stones you tend to develop. What are tips for following this plan? Reading food labels ??? Choose foods with no salt added or low-salt labels. Limit your salt (sodium) intake to less than 1,500 mg a day. ??? Choose foods with calcium for each meal and snack. Try to eat about 300 mg of calcium at each meal. Foods that contain 200?500 mg of calcium a serving include: ? 8 oz (237 mL) of milk, rxyzuyd-vqlxveywsyzl-amqjt milk, and calcium-fortifiedfruit juice. Calcium-fortified means that calcium has been added to these drinks. ? 8 oz (237 mL) of kefir, yogurt, and soy yogurt. ? 4 oz (114 g) of tofu. ? 1 oz (28 g) of cheese. ? 1 cup (150 g) of dried figs. ? 1 cup (91 g) of cooked broccoli. ? One 3 oz (85 g) can of sardines or mackerel. Most people need 1,000?1,500 mg of calcium a day. Talk to your dietitian about how much calcium is recommended for you. Shopping ??? Buy plenty of fresh fruits and vegetables. Most people do not need to avoid fruits and vegetables, even if these foods contain nutrients that may contribute to kidney stones. ??? When shopping for convenience foods, choose: ? Whole pieces of fruit. ? Pre-made salads with dressing on the side. ? Low-fat fruit and yogurt smoothies. ??? Avoid buying frozen meals or prepared deli foods. These can be high in sodium. ??? Look for foods with live cultures, such as yogurt and kefir. ??? Choose high-fiber grains, such as whole-wheat breads, oat bran, and wheat cereals. Cooking ??? Do not add salt to food when cooking. Place a salt shaker on the table and allow each person to add their own salt to taste. ??? Use vegetable protein, such as beans, textured vegetable protein (TVP), or tofu, instead of meat in pasta, casseroles, and soups. Meal planning ??? Eat less salt, if told by your dietitian. To do this: ? Avoid eating processed or pre-made food. ? Avoid eating fast food. ??? Eat less animal protein, including cheese, meat, poultry, or fish, if told by your dietitian. To do this: ? Limit the number of times you have meat, poultry, fish, or cheese each week. Eat a diet free of meat at least 2 days a week. ? Eat only one serving each day of meat, poultry, fish, or seafood. ? When you prepare animal proteins, cut pieces into small portion sizes. For most meat and fish, one serving is about the size of the palm of your hand. ??? Eat at least five servings of fresh fruits and vegetables each day. To do this: ? Keep fruits and vegetables on hand for snacks. ? Eat one piece of fruit or a handful of berries with breakfast. ? Have a salad and fruit at lunch. ? Have two kinds of vegetables at dinner. ??? You may be told to limit foods that are high in a substance called oxalate. These include: ? Spinach (cooked), rhubarb, beets, sweet potatoes, and [place] chard. ? Peanuts. ? Potato chips, vincentian fries, and baked potatoes with skin on. ? Nuts and nut products. ? Chocolate. ??? If you regularly take a diuretic medicine, make sure to eat at least 1 or 2 servings of fruits or vegetables that are high in potassium each day. These include: ? Avocado. ? Banana. ? [place], prune, carrot, or tomato juice. ? Baked potato. ? Cabbage. ? Beans and split peas. Lifestyle ??? Drink enough fluid to keep your urine pale yellow. This is the most important thing you can do. Spread your fluid intake throughout the day. ??? If you drink alcohol: ? Limit how much you have to: ? 0?1 drink a day for women who are not . ? 0?2 drinks a day for men. ? Know how much alcohol is in your drink. In the [place] one drink equals one 12 oz bottle of beer (355 mL), one 5 oz glass of wine (148 mL), or one 1? oz glass of hard liquor (44 mL). ??? Lose weight if told by your health care provider. Work with your dietitian to find an eating plan and weight loss strategies that work best for you. General information ??? Talk to your health care provider and dietitian about taking daily supplements. Depending on your health and the cause of your kidney stones, you may be told: ? Do not take high-dose supplements of vitamin C (1,000 mg a day or more). ? To take a calcium supplement. ? To take a daily probiotic supplement. ? To take other supplements such as magnesium, fish oil, or vitamin B6. ??? Take [id number] and prescription medicines only as told by your health (more content not included)... [facility] 09-12-2024 History of Present illness Narrative 15 minute [id number] follow-up anticoagulation appointment. INR performed in office per protocol. INR 1.9 (goal range: 2.0-3.0). Patient reports: Taking warfarin dosing as documented. Missed or extra doses of warfarin: No Changes to medications: No Changes to lifestyle (diet / alcohol / smoking / activity): No Recent emergency department visit / hospitalization / health changes / new contraindication to current anticoagulant: No Signs/symptoms of bruising/bleeding or clotting or any intolerable adverse events: YES Bruise on morin Upcoming procedures: No Anticoagulant prescription needed: No Seen referring provider in the last year Duration of therapy reviewed Assessment: INR is slightly low, but stable overall. Last INR of 3.1, therefore no changes Plan: Patient instructed to continue warfarin 2 mg daily. Check INR in 4 week(s). Patient verbalizes understanding of anticoagulant dosing instructions and information discussed. Dosing regimen, counseling, and follow-up appointment were provided to the patient. Patient reminded to call with questions or any medication changes. Patient instructed to seek medical attention if any major bleeding/bleeding that persists or worsens. Olinda Elena RPH 09/12/24 1404 documented in this encounter [facility] 08-15-2024 History of Present illness Narrative 15 minute [id number] follow-up anticoagulation appointment. INR performed in office per protocol. INR 3.1 (goal range: 2.0-3.0). Patient reports: Taking warfarin dosing as documented. Missed or extra doses of warfarin: No Changes to medications: No Changes to lifestyle (diet / alcohol / smoking / activity): No Recent emergency department visit / hospitalization / health changes / new contraindication to current anticoagulant: YES URI a few weeks ago- completed ABX and steroid Signs/symptoms of bruising/bleeding or clotting or any intolerable adverse events: No Upcoming procedures: No Anticoagulant prescription needed: No Seen referring provider in the last year Duration of therapy reviewed Assessment: INR is slightly elevated likely due to recent infection, but stable overall. Maintain current dosing. Plan: Patient instructed to continue warfarin 2 mg daily. Check INR in 4 week(s). Patient verbalizes understanding of anticoagulant dosing instructions and information discussed. Dosing regimen, counseling, and follow-up appointment were provided to the patient. Patient reminded to call with questions or any medication changes. Patient instructed to seek medical attention if any major bleeding/bleeding that persists or worsens. Olinda Elena RPH 08/15/24 1343 documented in this encounter [facility] 08-08-2024 History of Present illness Narrative Subjective SUBJECTIVE: Patient ID: Eduardo Howard is a 78 y.o. female who presents for a Medicare Annual Wellness exam. HPI The following portions of the patient's history were reviewed and updated as appropriate: allergies, current medications, past family history, past medical history, past social history, past surgical history and problem list. AWV FLOWSHEET : Lifestyle Assessment Do you smoke or use smokeless tobacco?: No If you smoke or use smokeless tobacco, are you ready to quit?: NA Are you exposed to secondhand smoke?: No On average, how many drinks of alcohol do you consume in a week?: None Do you exercise for 30 or more minutes on average at least 3 days a week?: (!) Never Do you have any tooth, denture, or oral problems?: No Do you snore or has anyone told you that you snore?: (!) Yes Do you try to eat a balanced diet?: (!) No Do you experience leakage of urine, also known as urinary incontinence?: (!) Sometimes Fall Risk Fall Risk Assessment Completed?: Yes Have you fallen in the past year?: (!) Yes How many times?: 1 Were you injured?: (!) Yes Are you worried about falling?: No Do you feel unsteady when standing or walking?: (!) Yes Risk Stratification: High Risk Depression Screening Little interest or pleasure in doing things: (!) Several days Feeling down, depressed, or hopeless: Not at all Trouble falling or staying asleep, or sleeping too much: (!) Several days Feeling tired or having little energy: (!) More than half the days Poor appetite or overeating: Not at all Feeling bad about yourself - or that you are a failure or have let yourself or your family down: (!) Several days Trouble concentrating on things, such as reading the newspaper or watching television: Not at all Moving or speaking so slowly that other people could have noticed. Or the opposite - being so fidgety or restless that you have been moving around a lot more than usual: Not at all Thoughts that you would be better off , or of hurting yourself in some way: Not at all PEG Scale What number best describes your pain on average in the past week?: 1 What number best describes how, during the past week, pain has interfered with your enjoyment of life?: 0 - Does not interfere What number best describes how, during the past week, pain has interfered with your general activity?: 0 - Does not interfere PEG Pain Total Score: 0.33 Safety Assessment Do you have throw rugs on the floor?: (!) Yes Do you feel safe at your home?: Yes Do you feel unsteady when walking?: No Are you having difficulty with driving?: No Do you have trouble seeing?: (!) Yes Hearing Assessment Do you strain or struggle to hear/understand conversations?: (!) Yes Do you have trouble hearing the television or radio when others do not?: No Does your family ever voice concerns about your hearing?: (!) Yes Do you wear hearing aid/s?: (!) Yes Personal Health During the past 4 weeks, how would you rate your overall health?: Good Do you understand how to take all of your medications?: Yes How confident are you that you can control and manage most of your health problems?: Very confident In the past 12 months, how many times have you been hospitalized?: None End of Life Planning Do you have a living will?: (!) No Do you have a durable power of claims attorney?: (!) No Cognitive Screening Do you have trouble remembering or recalling facts or events?: No Do family members or caregivers report that you have difficulty remembering things?: No Clock Drawing Test: Abnormal Mini-Mental Status Exam Score one point for each correct answer. Orientation to Time: What is today's date? 1 What is the month? 1 What is the year? 1 What is the day of the week today? 1 What season is it? [address]: Whose's home is this? 1 What room is this? 1 What city are we in? 1 What county are we in? 1 What state are we in? 1 Immediate Recall: Say ball , flag , tree clearly and slowly, about 1 second for each. After you have said all 3 words, ask the individual to repeat them. The first repetition determines the score. Ball 1 Flag 1 Tree 1 Attention: Ask the individual to spell the word WORLD backwards. The score is the number of letters in correct position D 1 L 1 R 1 O 1 W 1 Delayed Verbal Recall: Ask the individual to recall the 3 words you previously asked him/her to remember Ball 1 Flag 1 Tree 1 Naming: Show the individual a wristwatch and ask him/her what it is. Repeat for pencil. Watch 1 Pencil 1 Repetition: Ask the individual to repeat the following: No ifs, ands or buts 1 3-Stage Command: Give the individual a plain piece of paper and say, Take the paper in your hand, fold it in half, and put it on the floor. Takes 1 Folds 1 Puts 1 Reading: Hold up the card reading: Close your eyes so the individual can see it clearly. Ask him/her to read it and do what it says. Score correctly only if the individual actually closes his/her eyes. Reading 11 Writing: Give the individual a piece of paper and ask him/her to write a sentence. It is to be written spontaneously. It must contain a subject and verb and be sensible. Writing 1 Copying: Give the individual a piece of paper ans ask him/her to copy a design of two intersecting shapes. One point is awarded for correctly copying the shapes. All angles on both figures must be present, and the figures must have one overlapping angle. Copying 1 Total Score 30 The maximum score is 30 points. A score below 20 usually indicates cognitive impairment. REVIEW OF SYSTEMS: Review of Systems Constitutional: Negative for chills and fever. HENT: Negative for ear pain and sore throat. Eyes: Negative for pain and visual disturbance. Respiratory: Negative for cough and shortness of breath. Cardiovascular: Negative for chest pain and palpitations. Gastrointestinal: Negative for abdominal pain and vomiting. Genitourinary: Negative for dysuria and hematuria. Musculoskeletal: Negative for arthralgias and back pain. Skin: Negative for color change and rash. Neurological: Negative for seizures and syncope. All other systems reviewed and are negative. Objective PHYSICAL EXAMINATION: Vitals: 08/08/24 1307 BP: 108/80 Pulse: 72 Resp: 18 SpO2: 98% Weight: 90.3 kg (199 lb) Height: 163.8 cm (5' 4.5 ) Physical Exam Constitutional: Appearance: She is well-developed. She is obese. HENT: Head: Normocephalic and atraumatic. Nose: Nose normal. Eyes: Pupils: Pupils are equal, round, and reactive to light. Cardiovascular: Rate and Rhythm: Normal rate and regular rhythm. Heart sounds: Normal heart sounds. No murmur heard. Pulmonary: Effort: Pulmonary effort is normal. No respiratory distress. Breath sounds: Normal breath sounds. No wheezing. Abdominal: General: Bowel sounds are normal. Palpations: Abdomen is soft. Tenderness: There is no abdominal tenderness. Musculoskeletal: General: Normal range of motion. Cervical back: Neck supple. Lymphadenopathy: Cervical: No cervical adenopathy. Skin: General: Skin is warm and dry. Findings: No rash. Neurological: Mental Status: She is alert and oriented to person, place, and time. Cranial Nerves: No cranial nerve deficit. Psychiatric: Mood and Affect: Mood normal. Behavior: Behavior normal. Assessment/Plan ASSESSMENT/PLAN Eduardo was seen today for annual exam. Diagnoses and all orders for this visit: Encounter for Medicare annual wellness exam Paroxysmal A-fib ([facility]) Rhythm controlled. 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 Yeast infection - clotrimazole-betamethasone (LOTRISONE) cream; Apply 1 Application topically in the morning and 1 Application before bedtime. Do all this for 14 days. Apply to affected area 2 times daily. PUD (peptic ulcer disease) - pantoprazole (PROTONIX) 40 mg EC tablet; Take 1 tablet (40 mg total) by mouth in the morning and at bedtime. Hypothyroidism (acquired) - Lipid profile; Future Follow up after 6 mo documented in this encounter [facility] 08-03-2024 Miscellaneous Notes Patient was on an antibiotic last week. She now believes she has a yeast infection. Patient asking if medication can be sent to [facility]. 1 dose of diflucan ordered. documented in this encounter [facility] 08-03-2024 Telephone encounter Note Patient was on an antibiotic last week. She now believes she has a yeast infection. Patient asking if medication can be sent to [email or web address]. [facility] 08-03-2024 Telephone encounter Note 1 dose of diflucan ordered. [facility] 08-01-2024 History of Present illness Narrative Patient is here for an EKG visit ordered by Dr. Haas due to atrial fibrillation. Dr. Haas is in suite to review EKG prior to discharge. Patient is here due to medication changes. Medication list was Updated verbally with patient in office. Denies any cardiac complaints at this time. To Dr. Haas to read. Vitals: 08/01/24 1106 BP: 142/86 BP Location: Left arm Patient Position: Sitting Pulse: 75 Weight: 90.9 kg (200 lb 6.4 oz) Height: 1.676 m (5' 6 ) EKG done in office today documented in this encounter [facility] Work Phone: 07-26-2024 History of Present illness Narrative Received BPA for DDI between warfarin and Medrol Dosepack. Dose and duration not expected to significantly impact INR, no warfarin dose adjustments at this time. Also prescribed Augmentin which does not interact with warfarin. Heriberto Parra RPH 07/26/24 1614 documented in this encounter [facility] 07-26-2024 History of Present illness Narrative [id number] [facility] [id number] Patient: Eduardo Howard Date of : 1945 Encounter Date: 07/26/2024 History of Present Illness: The patient is a 78 y.o. female, an established patient, and is here for Chief Complaint Patient presents with Nasal Congestion Sore Throat Cough . Patient started having runny nose postnasal drip and productive cough for the last 3 days. She also has hoarse voice and scratchy throat. Fever or chills. denies sick contacts Nasal Congestion Associated symptoms include congestion, coughing and a sore throat. Pertinent negatives include no chills, ear pain or shortness of breath. Sore Throat Associated symptoms include congestion and coughing. Pertinent negatives include no abdominal pain, ear pain, shortness of breath or vomiting. Cough Associated symptoms include a sore throat. Pertinent negatives include no chest pain, chills, ear pain, fever, rash or shortness of breath. Problem List Items Addressed This Visit Paroxysmal A-fib ([facility]) (Chronic) Relevant Medications metoprolol tartrate (LOPRESSOR) 25 mg tablet Pulmonary emboli ([facility]) (Chronic) Other Visit Diagnoses Rhinopharyngitis - Primary Relevant Medications amoxicillin-pot clavulanate (AUGMENTIN) 875-125 mg per tablet methylPREDNISolone (MEDROL, PRICE,) 4 mg tablet Past Medical, Family, and Social History Update: The following portions of the patient's history were reviewed and updated as appropriate: allergies, current medications, past family history, past medical history, past social history, past surgical history and problem list. Past Medical History: Diagnosis Date Arthritis Atrial fibrillation Bowel obstruction ([facility]) Chronic diastolic congestive heart failure ([facility]) 03/09/2019 Chronic kidney disease H/O gastric bypass HL (hearing loss) left hearing aid Hypertension Pulmonary embolism ([facility]) Shortness of breath Visual impairment glasses Past Surgical History: Procedure Laterality Date BREAST BIOPSY Right 2006 STEREOTACTIC BX BENIGN CARDIAC CATHETERIZATION CATARACT EXTRACTION COLONOSCOPY EGD N/A 03/05/2019 Performed by Lonnie Fields DO at [facility] EGD N/A 02/08/2019 Performed by Lonnie Fields DO at [facility] GASTRIC BYPASS INJECTION STEROID INTERMEDIATE JOINT UPPER Right 05/16/2024 Performed by Matthew Damon MD at [facility] LAPAROSCOPIC CHOLECYSTECTOMY N/A 02/02/2019 Performed by Lonnie Fields DO at [facility] LITHOTRIPSY PANNICULECTOMY TONSILLECTOMY TOOTH EXTRACTION TUBAL LIGATION Current Outpatient Medications Medication Sig Dispense Refill amiodarone (PACERONE) 200 mg tablet Take 1 tablet (200 mg total) by mouth in the morning. dapagliflozin propanediol (FARXIGA) 10 mg tablet Take 1 tablet (10 mg total) by mouth in the morning. ferrous sulfate (IRON ORAL) Take by mouth. 1-2 times a week FLUoxetine (PROzac) 20 mg capsule Take 1 capsule (20 mg total) by mouth in the morning. 90 capsule 3 losartan (COZAAR) 100 mg tablet Take 1 tablet (100 mg total) by mouth in the morning. 90 tablet 3 metoprolol tartrate (LOPRESSOR) 25 mg tablet Take 0.5 tablets (12.5 mg total) by mouth in the morning and 0.5 tablets (12.5 mg total) before bedtime. MULTIVITAMIN ORAL Take by mouth. pantoprazole (PROTONIX) 40 mg EC tablet TAKE 1 TABLET BY MOUTH 2 TIMES A DAY 180 tablet 1 POTASSIUM CITRATE ORAL Take 25 mg by mouth in the morning and 25 mg before bedtime. spironolactone (ALDACTONE) 25 mg tablet Take 1 tablet (25 mg total) by mouth in the morning. 90 tablet 3 warfarin (COUMADIN) 1 mg tablet Take 1.5-2.5 tablets (1.5-2.5 mg total) by mouth in the evening. 225 tablet 1 amoxicillin-pot clavulanate (AUGMENTIN) 875-125 mg per tablet Take 1 tablet by mouth in the morning and 1 tablet before bedtime. Do all this for 5 days. 10 tablet 0 methylPREDNISolone (MEDROL, PRICE,) 4 mg tablet Take 1 tablet (4 mg total) by mouth in the morning. follow package directions. 21 tablet 0 No current facility-administered medications for this visit. (All medications reviewed and updated by provider since last office visit or hospitalization) Allergies: Animal dander, Aspirin, Codeine, House dust, Ibuprofen, Morphine, Nitrofurantoin, Oxycodone-acetaminophen, Cat dander, and Dog dander Tobacco History: Social History Tobacco Use Smoking Status Never Smokeless Tobacco Never (If patient a smoker, smoking cessation counseling offered) Social History: Social History Substance and Sexual Activity Alcohol Use No Review of Systems: Review of Systems Constitutional: Negative for chills and fever. HENT: Positive for congestion and sore throat. Negative for ear pain. Eyes: Negative for pain and visual disturbance. Respiratory: Positive for cough. Negative for shortness of breath. Cardiovascular: Negative for chest pain and palpitations. Gastrointestinal: Negative for abdominal pain and vomiting. Genitourinary: Negative for dysuria and hematuria. Musculoskeletal: Negative for arthralgias and back pain. Skin: Negative for color change and rash. Neurological: Negative for seizures and syncope. All other systems reviewed and are negative. Physical Exam: BP 110/60 Pulse 70 Temp 36.6 C (97.9 F) (Tympanic) Resp 20 Wt 91.6 kg (202 lb) LMP (LMP Unknown) SpO2 95% BMI 32.60 kg/m Physical Exam Constitutional: Appearance: She is well-developed. HENT: Head: Normocephalic and atraumatic. Right Ear: Tympanic membrane normal. Left Ear: Tympanic membrane normal. Nose: Congestion present. Mouth/Throat: Pharynx: Oropharynx is clear. Eyes: Pupils: Pupils are equal, round, and reactive to light. Cardiovascular: Rate and Rhythm: Normal rate and regular rhythm. Heart sounds: Normal heart sounds. No murmur heard. Pulmonary: Effort: Pulmonary effort is normal. No respiratory distress. Breath sounds: Normal breath sounds. No wheezing. Abdominal: General: Bowel sounds are normal. Palpations: Abdomen is soft. Tenderness: There is no abdominal tenderness. Musculoskeletal: General: Normal range of motion. Cervical back: Neck supple. No tenderness. Lymphadenopathy: Cervical: No cervical adenopathy. Skin: General: Skin is warm and dry. Findings: No rash. Neurological: Mental Status: She is alert and oriented to person, place, and time. Cranial Nerves: No cranial nerve deficit. Lab Results Component Value Date GLU 84 02/20/2024 CALCIUM 9.2 02/20/2024 SODIUM 140 02/20/2024 K 4.6 02/20/2024 CO2 23 02/20/2024 BUN 30 (H) 02/20/2024 CREATININE 1.35 (H) 02/20/2024 Lab Results Component Value Date WBC 5.4 08/10/2023 HGB 14.5 08/10/2023 HCT 44.0 08/10/2023 MCV 89 08/10/2023 PLT 178 08/10/2023 No results found for: HGBA1C Assessment and Plan: Eduardo was seen today for nasal congestion, sore throat and cough. Diagnoses and all orders for this visit: Rhinopharyngitis - amoxicillin-pot clavulanate (AUGMENTIN) 875-125 mg per tablet; Take 1 tablet by mouth in the morning and 1 tablet before bedtime. Do all this for 5 days. - methylPREDNISolone (MEDROL, PRICE,) 4 mg tablet; Take 1 tablet (4 mg total) by mouth in the morning. follow package directions. Paroxysmal A-fib (CMS-HCC) Continue amiodarone. Augmentin chosen instead of macrolide as it does not prolong the QT interval. Single subsegmental pulmonary embolism without acute cor pulmonale (CMS-HCC) Continue coumadin. No interaction of augmentin with coumadin. Follow-up: Return for Next scheduled follow up. JEROME QUICK MD documented in this encounter [facility] 07-25-2024 History of Present illness Narrative HPI Patient is in the office for follow-up for severe left ventricular systolic dysfunction confirmed by echocardiogram done last December 2023. She has had nuclear stress test earlier that year which revealed no perfusion abnormalities. She was found to have no evidence for significant aortic stenosis on her last echocardiogram. She remains compensated on medical therapy with her medical therapy for heart failure does not include beta-andres therapy due to reported intolerance with bradycardia. She has been treated successfully with amiodarone which eliminated her ventricular arrhythmias and prevented recurrent atrial fibrillation. EKG today revealed normal sinus rhythm with a heart rate of 76 bpm and normal QTc interval. The patient received regular testing for amiodarone for toxicity. Her last testing was in February 2024 we found no abnormalities. Her physical examination today was remarkable for class I obesity. Her weight is down 7 pounds from last visit. She reports no palpitations orthopnea PND lower extremity edema, she has dyspnea on exertion. A Holter monitor ordered since her last visit demonstrated near resolution of the PVCs. This was shared with the patient. Assessment/recommendations: 1-paroxysmal atrial fibrillation. The patient is currently in sinus rhythm on amiodarone with no significant breakthrough events currently anticoagulated with warfarin which has been well-tolerated.. Continue amiodarone and warfarin. 2-very large volume of PVCs accounting for 20% of total QRS complexes based on the last Holter monitor in February 2023. Repeat Holter monitor December 2023 revealed resolution of PVCs to less than 0.3% of total QRS complexes. Will continue amiodarone therapy 3-severe left ventricular systolic dysfunction, ejection fraction 35% by echo December 2023. Currently not on beta-andres therapy due to reported history of intolerance in the past. The patient was advised that we need to try again beta-andres therapy at low-dose and increase if tolerated to improve heart function. Metoprolol tartrate 12.5 mg twice daily will be added to present therapy with losartan and spironolactone along with farxiga, limited echocardiogram is scheduled in couple of months. Presently seems to be compensated. Nuclear stress test 2023 revealed no ischemia or myocardial infarction 4-essential hypertension, currently under control on losartan and spironolactone, the patient has no sleep apnea, advocated low-salt diet with DASH diet, weight loss and exercise program. 5- high risk medication with amiodarone and warfarin to be monitored closely. Potential toxicity of amiodarone including hepatal toxicity, pulmonary toxicity and neurotoxicity were discussed and we have been monitoring that closely. 6- class I obesity, lifestyle modification to lose weight were discussed with the patient. That includes regular exercise and reducing calorie consumption. If necessary cardiac rehab could be advocated if the ejection fraction remains low. If the ejection fraction remains below 35% we will discuss AICD option Review of Systems All other systems reviewed and are negative. Vitals: 07/25/24 1024 BP: 122/76 BP Location: Left arm Patient Position: Sitting Pulse: 76 Weight: 92 kg (202 lb 12.8 oz) Height: 1.676 m (5' 6 ) Objective Physical Exam Constitutional: Appearance: Normal appearance. HENT: Nose: Nose normal. Neck: Vascular: No carotid bruit. Cardiovascular: Rate and Rhythm: Normal rate. Pulses: Normal pulses. Heart sounds: Normal heart sounds. Pulmonary: Effort: Pulmonary effort is normal. Abdominal: General: Bowel sounds are normal. Palpations: Abdomen is soft. Musculoskeletal: General: Normal range of motion. Cervical back: Normal range of motion. Right lower leg: No edema. Left lower leg: No edema. Skin: General: Skin is warm and dry. Neurological: General: No focal deficit present. Mental Status: She is alert. Psychiatric: Mood and Affect: Mood normal. Behavior: Behavior normal. Thought Content: Thought content normal. Judgment: Judgment normal. Allergies Oxycodone-acetaminophen, Cat dander, Dog dander, and House dust Current Medications Current Outpatient Medications Medication Instructions amiodarone (PACERONE) 200 mg, oral, Daily dapagliflozin propanediol (FARXIGA) 10 mg, oral, Daily ferrous sulfate 65 mg FLUoxetine (PROzac) 20 mg capsule 1 tablet, Daily losartan (COZAAR) 100 mg, oral, Daily metoprolol tartrate (LOPRESSOR) 12.5 mg, oral, 2 times daily MULTIVITAMIN ORAL Take by mouth. pantoprazole (ProtoNix) 40 mg EC tablet 1 tablet, Daily potassium chloride CR 10 mEq ER tablet 10 mEq, Daily spironolactone (ALDACTONE) 25 mg, oral, Daily warfarin (COUMADIN) 2.5 mg Assessment/Plan 1. Essential hypertension, benign Follow Up In Cardiology metoprolol tartrate (Lopressor) 25 mg tablet losartan (Cozaar) 100 mg tablet spironolactone (Aldactone) 25 mg tablet 2. 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 use Complete Pulmonary Function Test (Spirometry/DLCO/Lung Volumes) Aspartate Aminotransferase Basic Metabolic Panel Thyroid Stimulating Hormone ECG 12 Lead Aspartate Aminotransferase Basic Metabolic Panel Thyroid Stimulating Hormone XR chest 2 views 3. Paroxysmal atrial fibrillation (Multi) ECG 12 Lead Complete Pulmonary Function Test (Spirometry/DLCO/Lung Volumes) Aspartate Aminotransferase Basic Metabolic Panel Thyroid Stimulating Hormone metoprolol tartrate (Lopressor) 25 mg tablet ECG 12 Lead amiodarone (Pacerone) 200 mg tablet Aspartate Aminotransferase Basic Metabolic Panel Thyroid Stimulating Hormone XR chest 2 views 4. Other cardiomyopathy Transthoracic Echo Limited losartan (Cozaar) 100 mg tablet 5. Mild CAD 6. Chronic diastolic congestive heart failure Follow Up In Cardiology Transthoracic Echo Limited 7. 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 PVC (premature ventricular contraction) 10. BMI 32.0-32.9,adult 11. Never smoked cigarettes Scribe Attestation By signing my name below, IDiane LPN, Scribe attest that this documentation has been prepared under the direction and in the presence of Yvonne Haas MD. Provider Attestation - Scribe documentation All medical record entries made by the Scribe were at my direction and personally dictated by me. I have reviewed the chart and agree that the record accurately reflects my personal performance of the history, physical exam, discussion and plan. documented in this encounter [facility] Work Phone: 07-25-2024 Instructions Diane Hwang LPN - 07/25/2024 10:30 AM EDT Please bring all medicines, vitamins, and herbal supplements with you when you come to the office. Prescriptions will not be filled unless you are compliant with your follow up appointments or have a follow up appointment scheduled as per instruction of your physician. Refills should be requested at the time of your visit. Fall Prevention Education Given Amiodarone follow up per routine BMI was above normal measurement. Current weight: 92 kg (202 lb 12.8 oz) Weight change since last visit (-) denotes wt loss -6.2 lbs Weight loss needed to achieve BMI 25: 48.2 Lbs Weight loss needed to achieve BMI 30: 17.3 Lbs Provided instructions on dietary changes. The following attachments cannot be sent through Care Everywhere.Heart Healthy Diet ([place])documented in this encounter [facility] Work Phone: 07-18-2024 History of Present illness Narrative 15 minute gtug-jx-vyal follow-up anticoagulation appointment. INR performed in office per protocol. INR 2.0 (goal range: 2.0-3.0). Patient reports: Taking warfarin dosing as documented. Missed or extra doses of warfarin: No Changes to medications: No Changes to lifestyle (diet / alcohol / smoking / activity): No Recent emergency department visit / hospitalization / health changes / new contraindication to current anticoagulant: No Signs/symptoms of bruising/bleeding or clotting or any intolerable adverse events: No Upcoming procedures: No Anticoagulant prescription needed: No Seen referring provider in the last year Duration of therapy reviewed Assessment: INR is remaining stable in therapeutic range on current warfarin regimen. Plan: Patient instructed to continue warfarin 2 mg daily. Check INR in 4 week(s). Patient verbalizes understanding of anticoagulant dosing instructions and information discussed. Dosing regimen, counseling, and follow-up appointment were provided to the patient. Patient reminded to call with questions or any medication changes. Patient instructed to seek medical attention if any major bleeding/bleeding that persists or worsens. Olinda Elena RPH 07/18/24 [id number] documented in this encounter [facility] 06-19-2024 History of Present illness Narrative 15 minute ooiy-wi-bqyj follow-up anticoagulation appointment. INR performed in office per protocol. INR 1.4 (goal range: 2.0-3.0). Patient reports: Taking warfarin dosing as documented. Missed or extra doses of warfarin: No Changes to medications: No Changes to lifestyle (diet / alcohol / smoking / activity): No Recent emergency department visit / hospitalization / health changes / new contraindication to current anticoagulant: No Signs/symptoms of bruising/bleeding or clotting or any intolerable adverse events: No Upcoming procedures: No Anticoagulant prescription needed: No Seen referring provider in the last year Duration of therapy reviewed Assessment: INR remains low. Patient dose was heavily reduced due to elevated INRs secondary to pain/low appetite. These have resolved. We will continue to increase dosing. Change to 1 mg tabs today. Increase weekly dose 12% Plan: Patient instructed to increase to warfarin 2.5 mg 06/19, then increase weekly dose to 2 mg daily. Check INR in 10 day(s). Patient verbalizes understanding of anticoagulant dosing instructions and information discussed. Dosing regimen, counseling, and follow-up appointment were provided to the patient. Patient reminded to call with questions or any medication changes. Patient instructed to seek medical attention if any major bleeding/bleeding that persists or worsens. Olinda Elena RPH 06/19/24 0913 documented in this encounter [facility] 06-07-2024 History of Present illness Narrative 15 minute huwi-gw-aqei follow-up anticoagulation appointment. INR performed in office per protocol. INR 1.4 (goal range: 2.0-3.0). Patient reports: Taking warfarin dosing as documented. Missed or extra doses of warfarin: No Changes to medications: No Changes to lifestyle (diet / alcohol / smoking / activity): YES Appetite has improved back to baseline Recent emergency department visit / hospitalization / health changes / new contraindication to current anticoagulant: YES Pain has improved significantly Signs/symptoms of bruising/bleeding or clotting or any intolerable adverse events: No Upcoming procedures: No Anticoagulant prescription needed: No Seen referring provider in the last year Duration of therapy reviewed Assessment: INR is subtherapeutic as patient pain and appetite have greatly improved. WE will increase weekly dose 10% Plan: Patient instructed to increase to warfarin 2.5 mg MWF and 1.25 mg AOD. Check INR in 10 days(s). Patient verbalizes understanding of anticoagulant dosing instructions and information discussed. Dosing regimen, counseling, and follow-up appointment were provided to the patient. Patient reminded to call with questions or any medication changes. Patient instructed to seek medical attention if any major bleeding/bleeding that persists or worsens. [facility] 06/07/24 1428 documented in this encounter [facility] 05-18-2024 History of Present illness Narrative 15 minute fgji-qx-nxhp follow-up anticoagulation appointment. INR performed in office per protocol. INR 1.9 (goal range: 2.0-3.0). Patient reports: Taking warfarin dosing as documented. Missed or extra doses of warfarin: No Changes to medications: No Changes to lifestyle (diet / alcohol / smoking / activity): No Recent emergency department visit / hospitalization / health changes / new contraindication to current anticoagulant: YES Pain continues to improve and is now much better Signs/symptoms of bruising/bleeding or clotting or any intolerable adverse events: No Upcoming procedures: No Anticoagulant prescription needed: No Seen referring provider in the last year Duration of therapy reviewed Assessment: INR is slightly low today. Will give just a 1mg boost today then will check INR in 2 weeks - if INR is low again at that point, we may need to increase pt's weekly dose due to patient no longer has active pain increasing her INR Of note, 1 mg tabs sent to [facility] at last appt due to anticipated need to change tab strength with dosing decreasing. Pt reports she does have the 1mg tabs at home in addition to the 2.5mg tabs. Since INR not therapeutic today did not make an office change in tabs today for weekly dose - So Still need to provide instruction for changing this at next OV. Anticipate 2-3 days of 1 mg and 4-5 days of 2 mg based on next INR. Plan: Patient instructed to increase to 3.5mg today 05/18, then continue warfarin 2.5 mg MF and 1.25 mg AOD. Check INR in 2 week(s). Patient verbalizes understanding of anticoagulant dosing instructions and information discussed. Dosing regimen, counseling, and follow-up appointment were provided to the patient. Patient reminded to call with questions or any medication changes. Patient instructed to seek medical attention if any major bleeding/bleeding that persists or worsens. Adi Watters RPH 05/18/24 1430 documented in this encounter [facility] 05-09-2024 History of Present illness Narrative 15 minute tkos-kr-hlel follow-up anticoagulation appointment. INR performed in office per protocol. INR 2.5 (goal range: 2.0-3.0). Patient reports: Taking warfarin dosing as documented. Missed or extra doses of warfarin: No Changes to medications: No Changes to lifestyle (diet / alcohol / smoking / activity): No Recent emergency department visit / hospitalization / health changes / new contraindication to current anticoagulant: YES Pain is improving Signs/symptoms of bruising/bleeding or clotting or any intolerable adverse events: No Upcoming procedures: No Anticoagulant prescription needed: No Seen referring provider in the last year Duration of therapy reviewed Assessment: INR is remaining stable in therapeutic range on current warfarin regimen. However, patient has historically had labile INRs. With the pain improving significantly and patient starting to resume previous activities, we will safety check in 1 week. Of note, 1 mg tabs sent to [facility] at last appt due to anticipated need to change tab strength with dosing decreasing. Will need to provide instruction for changing to this at next OV. Anticipate 2-3 days of 1 mg and 4-5 days of 2 mg based on next INR. Plan: Patient instructed to continue warfarin 2.5 mg MF and 1.25 mg AOD. Check INR in 1 week(s). Patient verbalizes understanding of anticoagulant dosing instructions and information discussed. Dosing regimen, counseling, and follow-up appointment were provided to the patient. Patient reminded to call with questions or any medication changes. Patient instructed to seek medical attention if any major bleeding/bleeding that persists or worsens. [facility] 05/09/24 1343 Electronically signed by [facility] at 05/09/2024 1:43 PM EDT documented in this encounter [facility] 04-30-2024 History of Present illness Narrative 15 minute rozj-ze-ymnc follow-up anticoagulation appointment. INR performed in office per protocol. INR 4.1 (goal range: 2.0-3.0). Patient reports: Taking warfarin dosing as documented. Missed or extra doses of warfarin: No Changes to medications: No Changes to lifestyle (diet / alcohol / smoking / activity): No Recent emergency department visit / hospitalization / health changes / new contraindication to current anticoagulant: YES Significant amount of pain with broken wrist Signs/symptoms of bruising/bleeding or clotting or any intolerable adverse events: No Upcoming procedures: No Anticoagulant prescription needed: YES- [facility] Seen referring provider in the last year Duration of therapy reviewed Assessment: INR remains elevated. Will hold x1 and reduce weekly dose additional 10%. We will also change tablet size to 1 mg for more precise dosing. Plan: Patient instructed to hold warfarin 04/30, then decrease to 2.5 mg MF and 1.25 mg AOD . Check INR in 10 day(s). Patient verbalizes understanding of anticoagulant dosing instructions and information discussed. Dosing regimen, counseling, and follow-up appointment were provided to the patient. Patient reminded to call with questions or any medication changes. Patient instructed to seek medical attention if any major bleeding/bleeding that persists or worsens. [facility] 04/30/24 1309 Electronically signed by [facility] at 04/30/2024 1:09 PM EDT documented in this encounter [facility] 04-16-2024 History of Present illness Narrative 15 minute zklh-yx-yghg follow-up anticoagulation appointment. INR performed in office per protocol. INR 3.8 (goal range: 2.0-3.0). Patient reports: Taking warfarin dosing as documented. Missed or extra doses of warfarin: No Changes to medications: YES PRN Vicodin-- 1/2 tab PRN. Using sparingly Changes to lifestyle (diet / alcohol / smoking / activity): No Recent emergency department visit / hospitalization / health changes / new contraindication to current anticoagulant: YES Patient broke right hand Signs/symptoms of bruising/bleeding or clotting or any intolerable adverse events: No Upcoming procedures: No Anticoagulant prescription needed: No Seen referring provider in the last year Duration of therapy reviewed Assessment: INR is elevated likely due to injury and pain. We will hold x1, then decrease weekly dose 9%. Patient to call if any surgical intervention is planned after MRI. Plan: Patient instructed to hold warfarin 04/16, then decrease weekly dose to 2.5 mg MWF and 1.25 mg AOD. Check INR in 2 week(s). Patient verbalizes understanding of anticoagulant dosing instructions and information discussed. Dosing regimen, counseling, and follow-up appointment were provided to the patient. Patient reminded to call with questions or any medication changes. Patient instructed to seek medical attention if any major bleeding/bleeding that persists or worsens. Olinda Elena RP 04/16/24 1140 documented in this encounter [facility] 03-26-2024 History of Present illness Narrative 15 minute zrgs-ck-kqyg follow-up anticoagulation appointment. INR performed in office per protocol. INR 2.7 (goal range: 2.0-3.0). Patient reports: Taking warfarin dosing as documented. Missed or extra doses of warfarin: No Changes to medications: No Changes to lifestyle (diet / alcohol / smoking / activity): No Recent emergency department visit / hospitalization / health changes / new contraindication to current anticoagulant: No Signs/symptoms of bruising/bleeding or clotting or any intolerable adverse events: No Upcoming procedures: No Anticoagulant prescription needed: No Seen referring provider in the last year Duration of therapy reviewed Assessment: INR is remaining stable in therapeutic range on current warfarin regimen. Plan: Patient instructed to continue warfarin 1.25 mg Tue/Thurs/Sat and 2.5 mg AOD. Check INR in 3 week(s). Patient verbalizes understanding of anticoagulant dosing instructions and information discussed. Dosing regimen, counseling, and follow-up appointment were provided to the patient. Patient reminded to call with questions or any medication changes. Patient instructed to seek medical attention if any major bleeding/bleeding that persists or worsens. [facility] 03/26/24 1338 Electronically signed by [facility] at 03/26/2024 1:38 PM EST documented in this encounter [facility] 03-05-2024 History of Present illness Narrative 15 minute ktnu-le-zhsu follow-up anticoagulation appointment. INR performed in office per protocol. INR 3.4 (goal range: 2.0-3.0). Patient reports: Taking warfarin dosing as documented. Missed or extra doses of warfarin: No Changes to medications: No Changes to lifestyle (diet / alcohol / smoking / activity): No Recent emergency department visit / hospitalization / health changes / new contraindication to current anticoagulant: No Signs/symptoms of bruising/bleeding or clotting or any intolerable adverse events: YES Bruise on leg-- it is healing Upcoming procedures: No Anticoagulant prescription needed: No Seen referring provider in the last year Duration of therapy reviewed Assessment: INR remains elevated, but improved with 13% dose reduction. We will reduce additional 8% Plan: Patient instructed to decrease to warfarin 1.25 mg 03/05, then decrease to 1.25 mg Tue/Thurs/Sat and 2.5 mg AOD. Check INR in 2.5 week(s). Patient verbalizes understanding of anticoagulant dosing instructions and information discussed. Dosing regimen, counseling, and follow-up appointment were provided to the patient. Patient reminded to call with questions or any medication changes. Patient instructed to seek medical attention if any major bleeding/bleeding that persists or worsens. [facility] 03/05/24 1152 Electronically signed by [facility] at 03/05/2024 11:52 AM EST documented in this encounter [facility] 02-20-2024 Note XR CHEST 2 VWS PROCEDURE: CHEST, TWO VIEWS (PA and Lateral), 02/20/2024 12:27 PM CLINICAL INDICATION: 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 use; Paroxysmal atrial fibrillation (CMS-HCC) COMPARISON: Chest 2 views 10/23/2020 IMPRESSION: 1. No acute cardiopulmonary disease. 2. Cardiac silhouette is mildly enlarged, stable. No pulmonary vascular congestion. Finalized by Osbaldo Oconnor MD on 02/20/2024 1:42 PM [facility] 02-20-2024 History of Present illness Narrative 15 minute vrsa-mc-ychf follow-up anticoagulation appointment. INR performed in office per protocol. INR 4.8 (goal range: 2.0-3.0). Patient reports: Taking warfarin dosing as documented. Missed or extra doses of warfarin: YES Patient has been taking 2.5 mg every day Changes to medications: No Changes to lifestyle (diet / alcohol / smoking / activity): No Recent emergency department visit / hospitalization / health changes / new contraindication to current anticoagulant: No Signs/symptoms of bruising/bleeding or clotting or any intolerable adverse events: No Upcoming procedures: No Anticoagulant prescription needed: No Seen referring provider in the last year Duration of therapy reviewed Assessment: INR remains elevated d/t not reducing weekly dose as instructed. We will hold x1 and reduce weekly dose by 13% given INR is running close to 5 x2 checks with current dosing. Plan: Patient instructed to hold warfarin 02/19, then decrease weekly dose to 1.25 mg Tue/Sat and 2.5 mg AOD. Check INR in 2 week(s). Patient verbalizes understanding of anticoagulant dosing instructions and information discussed. Dosing regimen, counseling, and follow-up appointment were provided to the patient. Patient reminded to call with questions or any medication changes. Patient instructed to seek medical attention if any major bleeding/bleeding that persists or worsens. Olinda Elena RPH 02/20/24 1215 documented in this encounter [facility] 02-02-2024 History of Present illness Narrative 15 minute rjkh-cr-ahzr follow-up anticoagulation appointment. INR performed in office per protocol. INR 3.6 (goal range: 2.0-3.0). Patient reports: Taking warfarin dosing as documented. Missed or extra doses of warfarin: No Changes to medications: YES Completed cipro Changes to lifestyle (diet / alcohol / smoking / activity): No Recent emergency department visit / hospitalization / health changes / new contraindication to current anticoagulant: YES UTI- treated with cipro. Some GI side effects Signs/symptoms of bruising/bleeding or clotting or any intolerable adverse events: No Upcoming procedures: No Anticoagulant prescription needed: No Seen referring provider in the last year Duration of therapy reviewed Assessment: INR remains elevated. This may be due to infection or GI symptoms with antibiotics. However, given recent trends, favor additional 7% dose reduction Plan: Patient instructed to decrease to warfarin 1.25 mg Fina and 2.5 mg AOD. Check INR in 1 week(s). Patient verbalizes understanding of anticoagulant dosing instructions and information discussed. Dosing regimen, counseling, and follow-up appointment were provided to the patient. Patient reminded to call with questions or any medication changes. Patient instructed to seek medical attention if any major bleeding/bleeding that persists or worsens. Olinda Elena RPH 02/02/24 1121 documented in this encounter [facility] 01-13-2024 History of Present illness Narrative 15 minute ekxt-wb-bfpg follow-up anticoagulation appointment. INR performed in office per protocol. INR 3.7 (goal range: 2.0-3.0). Patient reports: Taking warfarin dosing as documented. Missed or extra doses of warfarin: No Changes to medications: No Changes to lifestyle (diet / alcohol / smoking / activity): No Recent emergency department visit / hospitalization / health changes / new contraindication to current anticoagulant: No Signs/symptoms of bruising/bleeding or clotting or any intolerable adverse events: No Upcoming procedures: No Anticoagulant prescription needed: No Seen referring provider in the last year Duration of therapy reviewed Assessment: INR is supra-therapeutic range this time, after it appeared we finally found a weekly dose of 20mg that lead to 2x INRs in a row being at goal. Pt unable to determine any reason why INR would have increased this time. We will decrease x1, then recheck INR in 10 days to determine if today was isolated, or if we have to decrease weekly dose back down Plan: Patient instructed to decrease x1 today to 2.5mg, then continue warfarin 3.75 mg Mon/Fri and 2.5 mg AOD. Check INR in 10 days(s). Patient verbalizes understanding of anticoagulant dosing instructions and information discussed. Dosing regimen, counseling, and follow-up appointment were provided to the patient. Patient reminded to call with questions or any medication changes. Patient instructed to seek medical attention if any major bleeding/bleeding that persists or worsens. Adi Watters RPH 01/13/24 1159 documented in this encounter [facility] 12-30-2023 History of Present illness Narrative 15 minute tgex-hd-kgvn follow-up anticoagulation appointment. INR performed in office per protocol. INR 2.5 (goal range: 2.0-3.0). Patient reports: Taking warfarin dosing as documented. Missed or extra doses of warfarin: No Changes to medications: No Changes to lifestyle (diet / alcohol / smoking / activity): No Recent emergency department visit / hospitalization / health changes / new contraindication to current anticoagulant: No Signs/symptoms of bruising/bleeding or clotting or any intolerable adverse events: No Upcoming procedures: No Anticoagulant prescription needed: No Seen referring provider in the last year Duration of therapy reviewed Assessment: INR is remaining stable in therapeutic range on current warfarin regimen. Plan: Patient instructed to continue warfarin 3.75 mg Mon/Fri and 2.5 mg AOD. Check INR in 2.5 week(s). Patient verbalizes understanding of anticoagulant dosing instructions and information discussed. Dosing regimen, counseling, and follow-up appointment were provided to the patient. Patient reminded to call with questions or any medication changes. Patient instructed to seek medical attention if any major bleeding/bleeding that persists or worsens. Olinda Elena RPH 12/30/23 1132 documented in this encounter [facility] 12-23-2023 History of Present illness Narrative 15 minute redm-pg-blab follow-up anticoagulation appointment. INR performed in office per protocol. INR 2.4 (goal range: 2.0-3.0). Patient reports: Taking warfarin dosing as documented. Missed or extra doses of warfarin: No Changes to medications: No Changes to lifestyle (diet / alcohol / smoking / activity): No Recent emergency department visit / hospitalization / health changes / new contraindication to current anticoagulant: No Signs/symptoms of bruising/bleeding or clotting or any intolerable adverse events: No Upcoming procedures: No Anticoagulant prescription needed: No Seen referring provider in the last year Duration of therapy reviewed Assessment: INR is remaining stable in therapeutic range on current warfarin regimen. Plan: Patient instructed to continue warfarin 3.75 mg Mon/Fri and 2.5 mg AOD. Check INR in 1 week(s). Patient verbalizes understanding of anticoagulant dosing instructions and information discussed. Dosing regimen, counseling, and follow-up appointment were provided to the patient. Patient reminded to call with questions or any medication changes. Patient instructed to seek medical attention if any major bleeding/bleeding that persists or worsens. Olinda Elena RPH 12/23/23 1123 documented in this encounter [facility] 12-13-2023 History of Present illness Narrative Subjective Eduardo Howard is a 78 y.o. female Chief Complaint Follow-up HPI 78-year-old white female who has previously followed with Dr. Jones for paroxysmal atrial fibrillation. She is currently on amiodarone and warfarin and remains in normal sinus rhythm. Patient has no history of underlying coronary disease she had 2 nuclear stress test in the last 3 years the last study was in March 2023 which was read as normal with EF of 57%. The echocardiogram in January 2023 revealed ejection fraction of 30-35%. She has no symptoms of heart failure. She has hypertension on medical therapy under control using losartan and spironolactone. She has had no recent breakthrough atrial fibrillation, no orthopnea PND or palpitations. No bleeding complications on warfarin. Her weight remains above target and class I obesity. She has no history of diabetes or hyperlipidemia. She has tendency for kidney stones for which she claims that the potassium supplement has helped and the potassium reading have been just under 5 mmol/L. Reviewing her Holter monitor from couple years back she had 20% PVCs that had not been followed to assess response to present medical therapy. This should be investigated further Assessment/recommendations: 1-paroxysmal atrial fibrillation. The patient is currently in sinus rhythm on amiodarone with no significant breakthrough events. Continue amiodarone with amiodarone testing in place and warfarin. 2-very large volume of PVCs accounting for 20% of total QRS complexes based on the last Holter monitor in February 2023. Patient has poor tolerance to beta-andres therapy in the past leading severe bradycardia. She is not symptomatic with PVCs but this volume is worrisome. Will repeat the Holter monitor and determine based on the result would need to be done next. 3-echocardiogram January 2023 revealed ejection fraction of 30-35%. She has no symptoms of heart failure. Repeat echocardiogram is scheduled since nuclear study in March 2023 revealed normal ejection fraction at 57%. 4-essential hypertension, currently under control on losartan and spironolactone 6-vdfp-bvsdejj intolerance leading to significant bradycardia. Will avoid beta-andres if possible 6-high risk medication with amiodarone and warfarin to be monitored closely. 7-class I obesity, lifestyle modification to lose weight were discussed with the patient. Review of Systems Respiratory: Positive for shortness of breath. All other systems reviewed and are negative. Vitals: 12/13/23 0955 12/13/23 1037 BP: (!) 154/92 130/75 BP Location: Left arm Left arm Patient Position: Sitting Pulse: 87 Weight: 94.8 kg (209 lb) Height: 1.676 m (5' 6 ) EKG done in office today Objective Physical Exam Constitutional: Appearance: Normal appearance. HENT: Nose: Nose normal. Neck: Vascular: No carotid bruit. Cardiovascular: Rate and Rhythm: Normal rate. Pulses: Normal pulses. Heart sounds: Normal heart sounds. Pulmonary: Effort: Pulmonary effort is normal. Abdominal: General: Bowel sounds are normal. Palpations: Abdomen is soft. Musculoskeletal: General: Normal range of motion. Cervical back: Normal range of motion. Right lower leg: No edema. Left lower leg: No edema. Skin: General: Skin is warm and dry. Neurological: General: No focal deficit present. Mental Status: She is alert. Psychiatric: Mood and Affect: Mood normal. Behavior: Behavior normal. Thought Content: Thought content normal. Judgment: Judgment normal. Allergies Oxycodone-acetaminophen, Cat dander, Dog dander, and House dust Current Medications Current Outpatient Medications: amiodarone (Pacerone) 200 mg tablet, Take 1 tablet (200 mg) by mouth once daily., Disp: 90 tablet, Rfl: 1 FLUoxetine (PROzac) 20 mg capsule, Take 1 tablet by mouth once daily., Disp: , Rfl: losartan (Cozaar) 100 mg tablet, Take 1 tablet (100 mg) by mouth once daily., Disp: , Rfl: magnesium oxide (Mag-Ox) 400 mg (241.3 mg magnesium) tablet, Take 1 tablet (400 mg) by mouth once daily., Disp: 90 tablet, Rfl: 3 pantoprazole (ProtoNix) 40 mg EC tablet, Take 1 tablet (40 mg) by mouth once daily., Disp: , Rfl: potassium chloride CR 10 mEq ER tablet, Take 1 tablet (10 mEq) by mouth once daily. Do not crush, chew, or split., Disp: , Rfl: spironolactone (Aldactone) 25 mg tablet, Take 1 tablet (25 mg) by mouth once daily., Disp: 90 tablet, Rfl: 3 warfarin (Coumadin) 2.5 mg tablet, Take 1 tablet (2.5 mg) by mouth., Disp: , Rfl: Assessment/Plan 1. Dilated cardiomyopathy (Multi) Follow Up In Cardiology 2. Paroxysmal atrial fibrillation (Multi) 3. PVC (premature ventricular contraction) 4. Mild CAD 5. Essential hypertension, benign 6. 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 use 9. Never smoked cigarettes 10. BMI 33.0-33.9,adult Scribe Attestation By signing my name below, ISilvia LPN, Scribe attest that this documentation has been prepared under the direction and in the presence of Yvonne Haas MD. Provider Attestation - Scribe documentation All medical record entries made by the Scribe were at my direction and personally dictated by me. I have reviewed the chart and agree that the record accurately reflects my personal performance of the history, physical exam, discussion and plan. documented in this encounter [facility] Work Phone: 12-13-2023 Instructions Silvia Fowler LPN - 12/13/2023 10:00 AM EST Please bring all medicines, vitamins, and herbal supplements with you when you come to the office. Prescriptions will not be filled unless you are compliant with your follow up appointments or have a follow up appointment scheduled as per instruction of your physician. Refills should be requested at the time of your visit. Echo Monitor-48 hr Pft Tsh BMI was above normal measurement. Current weight: 94.8 kg (209 lb) Weight change since last visit (-) denotes wt loss 1 lbs Weight loss needed to achieve BMI 25: 54.4 Lbs Weight loss needed to achieve BMI 30: 23.5 Lbs Provided instructions on dietary changes Provided instructions on exercise. Amiodarone follow up per routine documented in this encounter [facility] Work Phone: 12-09-2023 History of Present illness Narrative 15 minute nqaz-vd-lpvj follow-up anticoagulation appointment. INR performed in office per protocol. INR 1.3 (goal range: 2.0-3.0). Patient reports: Taking warfarin dosing as documented. Missed or extra doses of warfarin: No Changes to medications: Changes to lifestyle (diet / alcohol / smoking / activity): No Recent emergency department visit / hospitalization / health changes / new contraindication to current anticoagulant: Yes Last week pt was getting SOB/Winded, went to ER - feared a clot d/t INRs running low, but all checked out ok, all became resolved later that day Signs/symptoms of bruising/bleeding or clotting or any intolerable adverse events: No Upcoming procedures: No Anticoagulant prescription needed: No Seen referring provider in the last year Duration of therapy reviewed Assessment: INR is still sub-therapeutic, and continues to gradually decrease, despite boosting x1 each time along with a series of weekly dose increases, including an increase by 20% last time on 11/29. There is no identified reason other that pt's dosing requirements are simply higher than current. Today we are boosting x1 again, and increasing weekly dose by another 16.7%. INR in 1 week Plan: Patient instructed to boost today 12/08 with 5mg, and increase weekly warfarin dose to 2.5mg QD. Check INR in 1 week(s). Patient verbalizes understanding of anticoagulant dosing instructions and information discussed. Dosing regimen, counseling, and follow-up appointment were provided to the patient. Patient reminded to call with questions or any medication changes. Patient instructed to seek medical attention if any major bleeding/bleeding that persists or worsens. Adi Watters RPH 12/09/23 1125 documented in this encounter [facility] 12-01-2023 Hospital Discharge instructions Additional Instructions Please follow-up at the Coumadin clinic and discussed that your INR here was subtherapeutic at 1.6. [facility] Work Phone: 11-30-2023 History of Present illness Narrative 15 minute metp-mw-fbwt follow-up anticoagulation appointment. INR performed in office per protocol. INR 1.4 (goal range: 2.0-3.0). Patient reports: Taking warfarin dosing as documented. Missed or extra doses of warfarin: No Changes to medications: Changes to lifestyle (diet / alcohol / smoking / activity): No Recent emergency department visit / hospitalization / health changes / new contraindication to current anticoagulant: No Signs/symptoms of bruising/bleeding or clotting or any intolerable adverse events: No Upcoming procedures: No Anticoagulant prescription needed: No Seen referring provider in the last year Duration of therapy reviewed Assessment: INR is still sub-therapeutic, and actually a little lower than last time, despite a boost x1 and increase weekly dose by 11%. Pt has had 12.5mg the last 7 days. Back on 11/07, pt's INR was 3.1 and pt had 16.25mg in the 7 days prior to that INR - this was a little high, but much closer to goal range than currently. Today, we will boost x1 again, and will also increase by 20% today, as this will put pt in a 15mg/7 day range, much closer to the 16.25mg/7 days that got pt's INR to 3.1, but not quite as much since the 3.1 at that time was a little high Plan: Patient instructed to boost today 11/29 with 3.75mg and increase weekly warfarin dose to 1.25mg Sat/Sun, 2.5mg AODs. Check INR in 9 day(s). Patient verbalizes understanding of anticoagulant dosing instructions and information discussed. Dosing regimen, counseling, and follow-up appointment were provided to the patient. Patient reminded to call with questions or any medication changes. Patient instructed to seek medical attention if any major bleeding/bleeding that persists or worsens. Adi Watters RPH 11/30/23 1552 documented in this encounter [facility] 11-18-2023 History of Present illness Narrative 15 minute case-dv-efry follow-up anticoagulation appointment. INR performed in office per protocol. INR 1.6 (goal range: 2.0-3.0). Patient reports: Taking warfarin dosing as documented. Missed or extra doses of warfarin: No Changes to medications: Changes to lifestyle (diet / alcohol / smoking / activity): No Recent emergency department visit / hospitalization / health changes / new contraindication to current anticoagulant: No Signs/symptoms of bruising/bleeding or clotting or any intolerable adverse events: No Upcoming procedures: No Anticoagulant prescription needed: No Seen referring provider in the last year Duration of therapy reviewed Assessment: INR is now in a sub-therapeutic range after getting INR to goal for the first time at last appt. No identified reason for the change, as pt reports I'm a creature of habit . We will boost x1 today and increase weekly dose by 11%, will see pt in 12 days Plan: Patient instructed to boost today 11/17 with 3.75mg and increase weekly warfarin dose to 2.5mg Mon/Wed/Fri, 1.25 mg AODs. Check INR in 12 day(s). Patient verbalizes understanding of anticoagulant dosing instructions and information discussed. Dosing regimen, counseling, and follow-up appointment were provided to the patient. Patient reminded to call with questions or any medication changes. Patient instructed to seek medical attention if any major bleeding/bleeding that persists or worsens. Adi Watters RPH 11/18/23 1138 documented in this encounter [facility] 11-11-2023 History of Present illness Narrative 15 minute cbpp-wn-pzwa follow-up anticoagulation appointment. INR performed in office per protocol. INR 2.3 (goal range: 2.0-3.0). Patient reports: Taking warfarin dosing as documented. Missed or extra doses of warfarin: No Changes to medications: Changes to lifestyle (diet / alcohol / smoking / activity): No Recent emergency department visit / hospitalization / health changes / new contraindication to current anticoagulant: No Signs/symptoms of bruising/bleeding or clotting or any intolerable adverse events: No Upcoming procedures: No Anticoagulant prescription needed: No Seen referring provider in the last year Duration of therapy reviewed Assessment: INR is in therapeutic range for this first after a series of dose decreases that got pt down to 11.25 mg over the last 7 days - so we set up a weekly dose plan today that attains 11.25mg per 7 days. Next INR check in 1 week to determine if this dosing plan keeps pt in stable therapeutic range, OR if INR continues to decrease and we therefore will need to bring in more 1 tab (2.5mg) days Plan: Patient instructed to start weekly warfarin dose of 2.5mg Mon/Fri, 1.25 mg AODs. Check INR in 1 week(s). Patient verbalizes understanding of anticoagulant dosing instructions and information discussed. Dosing regimen, counseling, and follow-up appointment were provided to the patient. Patient reminded to call with questions or any medication changes. Patient instructed to seek medical attention if any major bleeding/bleeding that persists or worsens. Adi Watters RPH 11/11/23 1059 documented in this encounter [facility] 11-08-2023 History of Present illness Narrative 15 minute lwod-zb-xtcq follow-up anticoagulation appointment. INR performed in office per protocol. INR 3.1 (goal range: 2.0-3.0). Patient reports: Taking warfarin dosing as documented. Missed or extra doses of warfarin: YES Held x1 as instructed Changes to medications: YES Jardiance stopped Changes to lifestyle (diet / alcohol / smoking / activity): No Recent emergency department visit / hospitalization / health changes / new contraindication to current anticoagulant: No Signs/symptoms of bruising/bleeding or clotting or any intolerable adverse events: No Upcoming procedures: No Anticoagulant prescription needed: No Seen referring provider in the last year Duration of therapy reviewed Assessment: INR is trending down, but remains elevated. Patient has had 16.25 mg in 7 days. She will be picking up the new 2.5 mg tabs today. Discussed switching to these for more exact dosing as quartering tablets is not recommended. Anticipate mix of 1.25 mg and 2.5 mg to be needed. Patient will have 11.25 mg/7 days at next check with 1 of those days being held. Plan: Patient instructed to decrease to warfarin 1.25 mg 10/1, 2.5 mg 10/2 and 1.25 mg 10/3. Check INR in 3 day(s). Patient verbalizes understanding of anticoagulant dosing instructions and information discussed. Dosing regimen, counseling, and follow-up appointment were provided to the patient. Patient reminded to call with questions or any medication changes. Patient instructed to seek medical attention if any major bleeding/bleeding that persists or worsens. Olinda Elena RPH 11/08/23 0934 documented in this encounter [facility] 11-04-2023 History of Present illness Narrative 15 minute pcrn-ck-vhwz follow-up anticoagulation appointment. INR performed in office per protocol. INR 4.7 (goal range: 2.0-3.0). Patient reports: Taking warfarin dosing as documented. Missed or extra doses of warfarin: No Changes to medications: No Changes to lifestyle (diet / alcohol / smoking / activity): No Recent emergency department visit / hospitalization / health changes / new contraindication to current anticoagulant: No Signs/symptoms of bruising/bleeding or clotting or any intolerable adverse events: No Upcoming procedures: No Anticoagulant prescription needed: No Seen referring provider in the last year Duration of therapy reviewed Assessment: INR is elevated despite a Hold and decreases on 10/30. We will hold x1 again today, have pt come back in with just 1.25mg on 11/04, 2.5mg 11/05, 5mg 11/06. Anticipate patient is going to need primarily 2.5 mg doses with a few 5 mg doses, and will likely need a smaller tablet for more exact dosing based on initial response. So today I sent an rx for 2.5mg tablet (*Change the dosing calendar to reflect this at next OV once confirm that pt picks up and starts using 2.5mg tabs) Plan: Patient instructed to hold warfarin 11/03, take 1.25 mg 11/04, 2.5mg 11/05, 5mg 11/06. Check INR in 4 day(s). Patient verbalizes understanding of anticoagulant dosing instructions and information discussed. Dosing regimen, counseling, and follow-up appointment were provided to the patient. Patient reminded to call with questions or any medication changes. Patient instructed to seek medical attention if any major bleeding/bleeding that persists or worsens. Adi Watters RPH 11/04/23 1322 documented in this encounter [facility] 10-31-2023 History of Present illness Narrative 15 minute cptr-ll-vylm follow-up anticoagulation appointment. INR performed in office per protocol. INR 4.1 (goal range: 2.0-3.0). Patient reports: Taking warfarin dosing as documented. Missed or extra doses of warfarin: No Changes to medications: No Changes to lifestyle (diet / alcohol / smoking / activity): No Recent emergency department visit / hospitalization / health changes / new contraindication to current anticoagulant: No Signs/symptoms of bruising/bleeding or clotting or any intolerable adverse events: No Upcoming procedures: No Anticoagulant prescription needed: No Seen referring provider in the last year Duration of therapy reviewed Assessment: INR is elevated following 25 mg in 5 days. We will hold x1. Patient instructed to take 2.5 mg x2 days, then additional 5 mg dose. Anticipate patient is going to need primarily 2.5 mg doses with a few 5 mg doses. (5 mg Sun/Thurs, 2.5 mg AOD would be 22.5 mg/week). Anticipate will need to change to smaller tablet for more exact dosing based on initial response. Plan: Patient instructed to hold warfarin 10/30, take 2.5 mg 10/31 and 11/01, then 5 mg 11/02. Check INR in 4 day(s). Patient verbalizes understanding of anticoagulant dosing instructions and information discussed. Dosing regimen, counseling, and follow-up appointment were provided to the patient. Patient reminded to call with questions or any medication changes. Patient instructed to seek medical attention if any major bleeding/bleeding that persists or worsens. Olinda Elena RPH 10/31/23 1619 documented in this encounter [facility] 10-28-2023 History of Present illness Narrative 30 minute gqqx-ld-nrjv new anticoagulation appointment. INR performed in office per protocol. INR 1.4 (goal range: 2.0-3.0). Patient reports: Taking warfarin dosing as documented. Missed or extra doses of warfarin: No Changes to medications: No Changes to lifestyle (diet / alcohol / smoking / activity): No Recent emergency department visit / hospitalization / health changes / new contraindication to current anticoagulant: No Signs/symptoms of bruising/bleeding or clotting or any intolerable adverse events: No Upcoming procedures: No Anticoagulant prescription needed: No Assessment: INR 1.4 after 2 days of 5mg, so up slightly from baseline. Will have pt take 5mg for next 3 doses, then check INR in 3 days to determine impact Plan: Patient instructed to continue warfarin 5mg QD. Check INR in 3 day(s). Patient verbalizes understanding of anticoagulant dosing instructions and information discussed. Dosing regimen, counseling, and follow-up appointment were provided to the patient. Patient reminded to call with questions or any medication changes. Patient instructed to seek medical attention if any major bleeding/bleeding that persists or worsens. Patient Education Checklist (Warfarin) (check below if assessed / education provided) Fall risk assessment [x] History of falls [] Yes [x] No [x] Use assist device, such as walker, cane, wheelchair [] Yes [x] No [x] Fall risk education Warfarin medication information [x] Indications for use [x] Mechanism of action [x] Dose and frequency [x] Duration of therapy Warfarin side effects [x] Risk of bleeding [x] Risk of clotting - missed doses [x] Teratogenicity Warfarin monitoring [x] INR - definition and use [x] Therapeutic ranges [x] Compliance [x] Outpatient anticoagulation provider [x] First outpatient INR appointment date Warfarin drug interactions [x] Reporting medication changes [x] Medication list up-to-date Communication [x] Notifying [facility] of any major changes with health, diet, medications, recent hospitalizations or upcoming procedures and having patient notify other providers that they are on warfarin Warfarin and diet concerns [x] Vitamin K effects Lifestyle [x] Alcohol consumption affect on INR [x] Tobacco use affect on INR Adi Watters RPH 10/28/23 1428 documented in this encounter [facility] 10-24-2023 History of Present illness Narrative [facility] Management received a new referral from Dr. Jacquelin Haas on 10/24/2023 at 1:33 pm. The information below is outlined from the referral: Demographics Eduardo Howard 1945 female [facility] clinic location / home health agency: [facility] Anticoagulation Details Indication: Paroxysmal Atrial Fibrillation Severe thrombophilia: No Active cancer: No INR Target Range: 2.0 - 3.0 Bridging Preference for procedure/surgery: Follow JAMAAL bridging guidelines Date warfarin started: Not yet prescribed Date of next INR required: TBD Anticipated duration of therapy: Indefinite Warfarin tablet strength prescribed: Not yet prescribed Current dosing instructions: Not yet started The dosing calendar is up-to-date to reflect warfarin tablet strength prescribed and current dosing instructions. The patient education checklist will be discussed in depth during the initial vwcf-jy-[id number] visit with a [facility] clinical pharmacist and/or during the initial phone call during home health. Pertinent information: Patient is a 78 yof with PMH atrial fibrillation (on Eliquis), CKD, chronic diastolic CHF, h/o gastric bypass, hearing loss, HTN, and PE. Per [facility], on 10/10 it was noted that patient sent in the wrong paperwork for Eliquis patient assistance and would run out before she gets approved. She was provided samples at that time. Later that same day note states that she was not approved from [facility]. Note on 10/16 states that patient is ok with switching to warfarin and would like to use [facility]. No dosing nor tablet strength is provided on fax. Her predicted CHADS-VASc score is 7 (age-2, sex-1, CHF-1, HTN-1, hx VTE-2) so bridging would be recommended for any procedures. Called Dr. Haas's office (P: [phone]) at [facility]. Left VM on nurse's line requesting a call back to confirm that warfarin has not yet been prescribed and if patient can get more Eliquis samples for bridging to warfarin. Noted that ticket writer calculated a high CHADS-VASc score and that bridging would likely be preferred. Called patient at [phone] (home) 10/25/23 11:50 AM and she reports that she does not qualify for assistance. Cost was >$400 per month. She reports that she may have been on warfarin about 4 years ago, but cannot recall. She reports that she has about a week's of worth of Eliquis. Instructed patient to continue Eliquis 2.5 mg BID for bridging and to start warfarin 5 mg daily tonight. Script sent to [facility] in [place] with request for it to be filled today. Patient scheduled for initial INR appt at [facility] on Tue10/28/23. Alisa Hamilton RPH 10/25/23 1208 Mamta from [facility] (P: [phone], option 4). She is returning a call to Christina with regards to clarification of orders. Please return her call. Returned call and spoke with nurse Vega. She reviewed notes in patient chart and advised that Dr. Haas recommended starting at warfarin 4 mg daily and that no bridging is needed. He recommended checking INR in 5-7 days. Noted that warfarin 5 mg tablet was sent in today and that patient was advised to bridge with Eliquis. Nurse advised that she will let Dr. Haas know plan. Informed her that ticket writer will return a call to patient and advise her that bridging with Eliquis is not needed. Called patient 1:26 PM and advised her to stop Eliquis when she starts taking warfarin. She v/u. Alisa Hamilton RPH 10/25/23 1327 documented in this [facility] Discharge instructions Patient Education 09/16/2023 11:01:52 Dietary Guidelines to Help Prevent Kidney Stones Dietary Guidelines to Help Prevent Kidney Stones Kidney stones are deposits of minerals and salts that form inside your kidneys. Your risk of developing kidney stones may be greater depending on your diet, your lifestyle, the medicines you take, and whether you have certain medical conditions. Most people can lower their risks of developing kidney stones by following these dietary guidelines. Your dietitian may give you more specific instructions depending on your overall health and the type of kidney stones you tend to develop. What are tips for following this plan? Reading food labels Choose foods with no salt added or low-salt labels. Limit your salt (sodium) intake to less than 1,500 mg a day. Choose foods with calcium for each meal and snack. Try to eat about 300 mg of calcium at each meal. Foods that contain 200 500 mg of calcium a serving include: ?8 oz (237 mL) of milk, tvcdpsj-oauryziiwuly-jypzu milk, and calcium-fortifiedfruit juice. Calcium-fortified means that calcium has been added to these drinks. ?8 oz (237 mL) of kefir, yogurt, and soy yogurt. ?4 oz (114 g) of tofu. ?1 oz (28 g) of cheese. ?1 cup (150 g) of dried figs. ?1 cup (91 g) of cooked broccoli. ?One 3 oz (85 g) can of sardines or mackerel. Most people need 1,000 1,500 mg of calcium a day. Talk to your dietitian about how much calcium is recommended for you. Shopping Buy plenty of fresh fruits and vegetables. Most people do not need to avoid fruits and vegetables, even if these foods contain nutrients that may contribute to kidney stones. When shopping for convenience foods, choose: ?Whole pieces of fruit. ?Pre-made salads with dressing on the side. ?Low-fat fruit and yogurt smoothies. Avoid buying frozen meals or prepared deli foods. These can be high in sodium. Look for foods with live cultures, such as yogurt and kefir. Choose high-fiber grains, such as whole-wheat breads, oat bran, and wheat cereals. Cooking Do not add salt to food when cooking. Place a salt shaker on the table and allow each person to add their own salt to taste. Use vegetable protein, such as beans, textured vegetable protein (TVP), or tofu, instead of meat in pasta, casseroles, and soups. Meal planning Eat less salt, if told by your dietitian. To do this: ?Avoid eating processed or pre-made food. ?Avoid eating fast food. Eat less animal protein, including cheese, meat, poultry, or fish, if told by your dietitian. To do this: ?Limit the number of times you have meat, poultry, fish, or cheese each week. Eat a diet free of meat at least 2 days a week. ?Eat only one serving each day of meat, poultry, fish, or seafood. ?When you prepare animal proteins, cut pieces into small portion sizes. For most meat and fish, one serving is about the size of the palm of your hand. Eat at least five servings of fresh fruits and vegetables each day. To do this: ?Keep fruits and vegetables on hand for snacks. ?Eat one piece of fruit or a handful of berries with breakfast. ?Have a salad and fruit at lunch. ?Have two kinds of vegetables at dinner. You may be told to limit foods that are high in a substance called oxalate. These include: ?Spinach (cooked), rhubarb, beets, sweet potatoes, and Venezuelan chard. ?Peanuts. ?Potato chips, vincentian fries, and baked potatoes with skin on. ?Nuts and nut products. ?Chocolate. If you regularly take a diuretic medicine, make sure to eat at least 1 or 2 servings of fruits or vegetables that are high in potassium each day. These include: ?Avocado. ?Banana. ?[place], prune, carrot, or tomato juice. ?Baked potato. ?Cabbage. ?Beans and split peas. Lifestyle Drink enough fluid to keep your urine pale yellow. This is the most important thing you can do. Spread your fluid intake throughout the day. If you drink alcohol: ?Limit how much you have to: ?0 1 drink a day for women who are not . ?0 2 drinks a day for men. ?Know how much alcohol is in your drink. In the [place] one drink equals one 12 oz bottle of beer (355 mL), one 5 oz glass of wine (148 mL), or one 1 oz glass of hard liquor (44 mL). Lose weight if told by your health care provider. Work with your dietitian to find an eating plan and weight loss strategies that work best for you. General information Talk to your health care provider and dietitian about taking daily supplements. Depending on your health and the cause of your kidney stones, you may be told: ?Do not take high-dose supplements of vitamin C (1,000 mg a day or more). ?To take a calcium supplement. ?To take a daily probiotic supplement. ?To take other supplements such as magnesium, fish oil, or vitamin B6. Take orxa-hgk-xnfhppv and prescription medicines only as told by your health care provider. These include supplements. What foods should I limit? Limit your intake of the following foods, or eat them as told by your dietitian. Vegetables Spinach. Rhubarb. Beets. Canned vegetables. Pickles. Olives. Baked potatoes with skin. Grains Wheat bran. Baked goods. Salted crackers. Cereals high in sugar. Meats and other proteins Nuts. Nut butters. Large portions of meat, poultry, or fish. Salted, precooked, or cured meats, such as sausages, meat loaves, and hot dogs. Dairy Cheeses. Beverages Regular soft drinks. Regular vegetable juice. Seasonings and condiments Seasoning blends with salt. Salad dressings. Soy sauce. Ketchup. Barbecue sauce. Other foods Canned soups. Canned pasta sauce. Casseroles. Pizza. Lasagna. Frozen meals. Potato chips. Afghan fries. The items listed above may not be a complete list of foods and beverages you should limit. Contact a dietitian for more information. What foods should I avoid? Talk to your dietitian about specific foods you should avoid based on the type of kidney stones you have and your overall health. Fruits Grapefruit. The item listed above may not be a complete list of foods and beverages you should avoid. Contact a dietitian for more information. Summary Kidney stones are deposits of minerals and salts that form inside your kidneys. You can lower your risk of kidney stones by making changes to your diet. The most important thing you can do is drink enough fluid. Drink enough fluid to keep your urine pale yellow. Talk to your dietitian about how much calcium you should have each day, and eat less salt and animal protein as told by your dietitian. This information is not intended to replace advice given to you by your health care provider. Make sure you discuss any questions you have with your health care provider. Document Revised: 05/06/2022 Document Reviewed: 05/06/2022 [employer] Patient Education 2022 [employer]. Follow Up Care 09/13/2022 11:22:10 With:HARPER DE LA ROSA, Allyson Montenegro, URL Address: [address] [place] [phone] When: Unknown [facility] 08-04-2023 History of Present illness Narrative Images from the original note were not included. [id number] [facility] [id number] Subjective: Eduardo Howard is a 77 y.o. female who presents for a Medicare Annual Wellness exam. The following portions of the patient's history were reviewed and updated as appropriate: Health Risk Assessment, allergies, past medical history, past surgical history, social history, family history, and immunization history Accompanied by: self History Provided By: self Language and Other Communication Barriers: Primary Language Spoken: [place] Highest Level of Education Completed: high school diploma/GED Are You Happy With How Well You Read? yes Diet and Physical Activity: Current Prescribed Diet: Other: bypass diet How would you describe the condition of your mouth and teeth, including false teeth and dentures? Good Exercise Frequency: Sedentary Types of Exercise: Walking Health Risk Assessment: Cognitive Screening Do you have trouble remembering or recalling facts or events?: No Do family members or caregivers report that you have difficulty remembering things?: No Depression Screening Feeling down, depressed, or hopeless: (!) Several days Trouble falling or staying asleep, or sleeping too much: (!) Several days Feeling tired or having little energy: (!) Several days Poor appetite or overeating: Not at all Feeling bad about yourself - or that you are a failure or have let yourself or your family down: (!) Several days Trouble concentrating on things, such as reading the newspaper or watching television: Not at all Moving or speaking so slowly that other people could have noticed. Or the opposite - being so fidgety or restless that you have been moving around a lot more than usual: Not at all Thoughts that you would be better off , or of hurting yourself in some way: Not at all End of Life Planning Do you have a living will?: (!) No Do you have a durable power of claims attorney?: (!) No Fall Risk Fall Risk Assessment Completed?: Yes Hearing Assessment Do you strain or struggle to hear/understand conversations?: (!) Yes Do you have trouble hearing the television or radio when others do not?: No Does your family ever voice concerns about your hearing?: (!) Yes Do you wear hearing aid/s?: (!) Yes Lifestyle Assessment Do you smoke or use smokeless tobacco?: No If you smoke or use smokeless tobacco, are you ready to quit?: (!) No Are you exposed to secondhand smoke?: No On average, how many drinks of alcohol do you consume in a week?: None Do you exercise for 30 or more minutes on average at least 3 days a week?: (!) Never Do you have any tooth, denture, or oral problems?: (!) Yes Do you snore or has anyone told you that you snore?: (!) Yes Do you try to eat a balanced diet?: (!) No Do you experience leakage of urine, also known as urinary incontinence?: (!) Sometimes Do you have difficulty performing any of these activities? (check all that apply): None Do you have difficulty performing any of these activities? (check all that apply): (!) Laundry, Housekeeping, Shopping Personal Health During the past 4 weeks, how would you rate your overall health?: Good Do you understand how to take all of your medications?: Yes How confident are you that you can control and manage most of your health problems?: Very confident In the past 12 months, how many times have you been hospitalized?: None Safety Assessment Do you have throw rugs on the floor?: (!) Yes Do you feel safe at your home?: Yes Do you feel unsteady when walking?: No Are you having difficulty with driving?: No Do you have trouble seeing?: No What assistive device do you use? (check all that apply): (!) Bath bar/seat Vitals: Vitals: 08/04/23 0931 BP: 128/80 Pulse: 68 Resp: 16 Temp: 36.4 C (97.6 F) Body mass index is 33.25 kg/m . 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) 03/09/2019 Pulmonary emboli ([facility]) 03/03/2019 Shortness of breath 02/16/2019 PUD (peptic ulcer disease) 02/08/2019 Paroxysmal A-fib ([facility]) 02/01/2019 Nephrolithiasis 07/21/2017 H/O gastric bypass 07/21/2017 Past Medical History: Diagnosis Date Arthritis Atrial fibrillation Bowel obstruction ([facility]) Chronic diastolic congestive heart failure ([facility]) 03/09/2019 Chronic kidney disease H/O gastric bypass HL (hearing loss) left hearing aid Hypertension Pulmonary embolism ([facility]) Shortness of breath Visual impairment glasses Past Surgical History: Procedure Laterality Date BREAST BIOPSY Right 2007 STEREOTACTIC BX BENIGN CARDIAC CATHETERIZATION CATARACT EXTRACTION COLONOSCOPY EGD N/A 03/05/2019 Performed by Lonnie Fields DO at [facility] EGD N/A 02/08/2019 Performed by Lonnie Fields DO at [facility] GASTRIC BYPASS LAPAROSCOPIC CHOLECYSTECTOMY N/A 02/02/2019 Performed by Lonnie Fields DO at [facility] LITHOTRIPSY PANNICULECTOMY TONSILLECTOMY TOOTH EXTRACTION TUBAL LIGATION Family History Problem Relation Age of Onset Stroke Mother Hypertension Mother Colon cancer Mother Heart failure Mother Heart disease Mother Diabetes Father Hypertension Father Ovarian cancer Sister Hypertension Sister Hypertension Brother Hyperlipidemia Brother Breast cancer Neg Hx Social History Tobacco Use Smoking status: Never Smokeless tobacco: Never Substance Use Topics Alcohol use: No Allergies: Allergies Allergen Reactions Animal Dander Aspirin Other reaction(s): Other: See Comments Ulcers Codeine nausea House Dust Ibuprofen Other reaction(s): Other: See Comments Ulcers Morphine nausea Nitrofurantoin Oxycodone-Acetaminophen Hallucinations Cat Dander Other (See Comments) Dog Dander Other (See Comments) Current Outpatient Medications Medication Sig Dispense Refill amiodarone (PACERONE) 200 mg tablet Take 1 tablet (200 mg total) by mouth in the morning. apixaban (ELIQUIS) 2.5 mg tablet Take 1 tablet (2.5 mg total) by mouth in the morning and 1 tablet (2.5 mg total) before bedtime. empagliflozin (JARDIANCE) 10 mg tablet tablet Take 1 tablet (10 mg total) by mouth in the morning. ferrous sulfate (IRON ORAL) Take by mouth. 1-2 times a week FLUoxetine (PROzac) 20 mg capsule Take 1 capsule (20 mg total) by mouth in the morning. 90 capsule 3 losartan (COZAAR) 100 mg tablet TAKE ONE TABLET BY MOUTH EVERY MORNING 90 tablet 3 magnesium oxide (MAGOX) 400 mg tablet Take 1 tablet (400 mg total) by mouth in the morning. MULTIVITAMIN ORAL Take by mouth. pantoprazole (PROTONIX) 40 mg EC tablet take 1 tablet by mouth twice a day 180 tablet 2 POTASSIUM CITRATE ORAL Take 25 mg by mouth in the morning and 25 mg before bedtime. spironolactone (ALDACTONE) 25 mg tablet Take 1 tablet (25 mg total) by mouth in the morning. 90 tablet 1 No current facility-administered medications for this visit. Immunization History Administered Date(s) Administered AS03 Adjuvant 11/24/2017, 11/11/2019 COVID-19, mRNA, LNP-S, PF, 30mcg/0.3mL Dose 04/01/2020, 04/22/2020, 12/19/2020 Covid-19, Mrna, Lnp-s, Bivalent, Pf, 50mcg/0.5ml or 25mcg/0.25ml 10/23/2021 Covid-19, Mrna, Lnp-s, Pf,artie-sucrose,30 Mcg/0.3ml Fall23 12/14/2022 Influenza High Dose Preservative Free IM 01/10/2014, 11/11/2014, 11/16/2016, 12/10/2020 Influenza Vaccine, Quadrivalent, Adjuvanted 11/11/2019 Influenza, High-dose, Quadrivalent 12/10/2020, 10/23/2021 Influenza, Im Trivalent Preservative 11/10/2021 Influenza, Injectable, MDCK, Quadrivalent 12/11/2018 Influenza, Injectable, Mdck, Preservative Free, Quad 12/11/2018 Influenza, Injectable, quadrivalent (PF) 11/20/2014 Influenza, Trivalent, Adjuvanted 11/24/2017, 11/11/2019 Influenza, Unspecified 01/10/2014, 11/11/2014, 11/16/2016, 11/24/2017 Pneumococcal Conjugate 13-Valent 11/16/2016 Pneumococcal Polysaccharide 07/26/2012, 11/24/2017 Zoster Vaccine Recombinant 04/01/2022, 08/20/2022 Medication Adherence: Original 4-item [place] Scale Do you ever forget to take your medicine? no Are you careless at times about taking your medicine? no When you feel better, do you sometimes stop taking your medicine? no Sometimes if you feel worse when you take your medicine, do you stop taking it? no Score: 4 Scoring: high-low; yes=0 no=1. Range 0-4. By reversing the wording of four questions about the way patients might experience drug omissions, the sum of yes answers would provide a composite measure of non-adherence. Higher scores indicate higher adherence. Cognitive Screening: Clock Drawing Test: Normal Mini-Cog: Patient Concerns for Cognitive Function: no Family Concerns for Cognitive Function: no Sensory Screening: Hearing right ear: decreased Hearing left ear: decreased Can you hear what a person says without seeing his/her face, if spoken in a normal voice from across the room? Yes Can you hear what a person says without seeing his/her face, if that person whispers to you from across a room? Yes Do you use a hearing aid: yes Review of Systems: Review of Systems HENT: Positive for hearing loss. Respiratory: Negative. Cardiovascular: Negative. Gastrointestinal: Negative. Genitourinary: Negative. Musculoskeletal: Positive for arthralgias. Neurological: Negative. Psychiatric/Behavioral: Negative. Objective: Physical Exam Vitals and nursing note reviewed. Constitutional: Appearance: Normal appearance. HENT: Head: Normocephalic and atraumatic. Eyes: Extraocular Movements: Extraocular movements intact. Pupils: Pupils are equal, round, and reactive to light. Cardiovascular: Rate and Rhythm: Normal rate and regular rhythm. Pulses: Normal pulses. Heart sounds: Normal heart sounds. Pulmonary: Effort: Pulmonary effort is normal. Breath sounds: Normal breath sounds. Skin: General: Skin is warm and dry. Neurological: General: No focal deficit present. Mental Status: She is alert and oriented to person, place, and time. Psychiatric: Mood and Affect: Mood normal. Behavior: Behavior normal. Hospital Outpatient Visit on 01/18/2023 Component Date Value Ref Range Status Sodium 01/18/2023 140 134 - 146 mmol/L Final Potassium, Bld 01/18/2023 4.5 3.5 - 5.0 mmol/L Final Chloride 01/18/2023 105 98 - 109 mmol/L Final CO2 01/18/2023 27 22 - 32 mmol/L Final Anion gap 01/18/2023 8 5 - 15 mmol/L Final BUN 01/18/2023 28 (H) 5 - 27 mg/dL Final Creatinine 01/18/2023 1.59 (H) 0.40 - 1.00 mg/dL Final METHOD TRACEABLE TO IDMS STANDARD Glucose 01/18/2023 73 65 - 99 mg/dL Final Calcium 01/18/2023 9.1 8.5 - 10.5 mg/dL Final eGFR (CKD-EPI)non-race dependent 01/18/2023 33 (L) >59 ml/min/1.73sq.m Final Comment: Reported eGFR is based on the CKD-EPI 2020 equation that does not use a race coefficient. BNP 01/18/2023 405 (H) <100.0 pg/mL Final Advanced Directives: Living Will: no DPA for Health Care: No Discussion and Summary: Risk findings: none Personalized Prevention Plan Services: Specialty Evaluation Advised:N/A Preventative Programs Recommended: N/A Prevention Counseling and Education Materials:N/A Diseases: N/A Immunizations: N/A Nutrition: N/A Activity/Exercise/Safety/Misc: N/A The above recommendations were discussed with the patient. Medicare Available Services: Medicare Available Services Admin of Pneumococcal Vaccine: Completed Admin of influenza vaccine: Completed Admin of Hep B vaccine: Not applicable AAA ultrasound screening: Not applicable Screening mammography: Recommended Screening pap and pelvic exam: Not applicable Prostate cancer screening: Not applicable Colorectal cancer screening tests: Not applicable DM outpatient self management training services: Not applicable Bone mass measurements: Not applicable Screening for glaucoma: Recommended Cardiovascular screening blood tests: Completed DM screening blood tests: Completed Smoking cessation counseling: Completed Counseling to prevent tobacco use: Completed Screening/counseling to reduce alcohol misuse: Completed Behavioral therapy for obesity: Not applicable STI infection screening and behavioral counseling: Not applicable Medical nutrition therapy services for DM: Not applicable Medical nutrition therapy services: Not applicable Copy to patient and copy in patient's medical record. Assessment/Plan: Eduardo Howard has been seen for a well visit today. Preventative recommendations were reviewed. Any chronic conditions that have been addressed include those listed below. Eduardo was seen today for annual exam. Diagnoses and all orders for this visit: Routine general medical examination at a health care facility Essential hypertension - CBC auto differential; Future - Comprehensive metabolic panel; Future - Lipid profile; Future - Thyroid profile includes TSH FT4; Future Paroxysmal A-fib ([facility]) - CBC auto differential; Future - Comprehensive metabolic panel; Future - Lipid profile; Future - Thyroid profile includes TSH FT4; Future Chronic diastolic congestive heart failure (CMS-HCC) H/O gastric bypass Encounter for screening mammogram for malignant neoplasm of breast - Mammography screening bilateral with CAD; Future Acoustic neuroma (CMS-HCC) Single subsegmental pulmonary embolism without acute cor pulmonale (CMS-HCC) Follow Up: Fasting labs and mammogram ordered recheck in 6m Pt is trying lose weight documented in this encounter [facility] 08-04-2023 Instructions Andrei Wiseman MD - 08/04/2023 9:30 AM EDT Medicare Available Services Admin of Pneumococcal Vaccine: Completed Admin of influenza vaccine: Completed Admin of Hep B vaccine: Not applicable AAA ultrasound screening: Not applicable Screening mammography: Recommended Screening pap and pelvic exam: Not applicable Prostate cancer screening: Not applicable Colorectal cancer screening tests: Not applicable DM outpatient self management training services: Not applicable Bone mass measurements: Not applicable Screening for glaucoma: Recommended Cardiovascular screening blood tests: Completed DM screening blood tests: Completed Smoking cessation counseling: Completed Counseling to prevent tobacco use: Completed Screening/counseling to reduce alcohol misuse: Completed Behavioral therapy for obesity: Not applicable STI infection screening and behavioral counseling: Not applicable Medical nutrition therapy services for DM: Not applicable Medical nutrition therapy services: Not applicable documented in this encounter [facility] 05-11-2023 Miscellaneous Notes [facility] requesting refill of Pantoprazole documented in this encounter [facility] 05-11-2023 Telephone encounter Note [facility] requesting refill of Pantoprazole [facility] [facility] 03-01-2023 Evaluation + Plan note Associated Problem(s): BMI 34.0-34.9,adult Reviewed the merits of healthy lifestyle choices on overall cardiovascular health. 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 Previously maintained on Toprol 200 mg daily; following Holter, dose was weaned down to 150 mg x 1 week, was on Toprol 100mg at time of OV. Toprol discontinued. Mar 01 2022: EKG bigeminy unifocal PVCs Denies any dizziness, lightheadedness. No prior syncopal episodes. Maintained on magnesium, Most recent potassium 4.9 Associated Problem(s): Paroxysmal atrial fibrillation (CMS/HCC) EKG in office bigeminy, underlying sinus rhythm January 2023 Holter no recurrent PAF Associated Problem(s): Mild CAD 2013 cardiac cath trivial coronary artery disease September 2021 MPI no ischemia FC III fatigue and shortness of breath Daily activity less than 4 METS due to symptoms Associated Problem(s): Essential hypertension, benign optimal off high-dose Toprol Associated Problem(s): Cardiomyopathy (CMS/HCC) HFrEF 30-35% Jan 2023 TTE ( September 2021 MPI EF 48%: August 2021 TTE 30 to 35%, 2013 cath EF 45%) Functional class III stage C Fatigue and dyspnea on exertion GDMT: High-dose Toprol - needs stopped due to profound bradycardia Losartan Aldactone Entersto: no insurance coverage, unable to afford Jardiance: Jan 2023 QRS 104 Associated Problem(s): 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 use Amiodarone start date September 07, 2021 EKG in office bigeminy, QTc 474 Surveillance testing has been scheduled towards the end of the month documented in this encounter [facility] Work Phone: 03-01-2023 Evaluation + Plan note Associated Problem(s): Sick sinus syndrome (CMS/HCC) January 2023 Holter average heart rate 46 17.9% PVC burden Feb 21 2023: EKG sinus bradycardia with first-degree AV block at 31 bpm. Previously maintained on Toprol 200 mg daily; following Holter, dose was weaned down to 150 mg x 1 week, was on Toprol 100mg at time of OV. Toprol discontinued. Mar 01 2022: EKG bigeminy unifocal PVCs Denies any dizziness, lightheadedness. No prior syncopal episodes. Maintained on magnesium, Most recent potassium 4.9 [facility] Work Phone: 03-01-2023 Evaluation + Plan note Associated Problem(s): Paroxysmal atrial fibrillation (CMS/HCC) EKG in office bigeminy, underlying sinus rhythm January 2023 Holter no recurrent PAF [facility] Work Phone: 03-01-2023 Evaluation + Plan note Associated Problem(s): Mild CAD 2013 cardiac cath trivial coronary artery disease September 2021 MPI no ischemia FC III fatigue and shortness of breath Daily activity less than 4 METS due to symptoms [facility] Work Phone: 03-01-2023 Evaluation + Plan note Associated Problem(s): Essential hypertension, benign optimal off high-dose Toprol [facility] Work Phone: 03-01-2023 Evaluation + Plan note Associated Problem(s): Cardiomyopathy (CMS/HCC) HFrEF 30-35% Jan 2023 TTE ( September 2021 MPI EF 48%: August 2021 TTE 30 to 35%, 2013 cath EF 45%) Functional class III stage C Fatigue and dyspnea on exertion GDMT: High-dose Toprol - needs stopped due to profound bradycardia Losartan Aldactone Entersto: no insurance coverage, unable to afford Jardiance: Jan 2023 QRS 104 [facility] Work Phone: 03-01-2023 Evaluation + Plan note Associated Problem(s): 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 use Amiodarone start date September 07, 2021 EKG in office bigeminy, QTc 474 Surveillance testing has been scheduled towards the end of the month [facility] Work Phone: 03-01-2023 History of Present illness Narrative Chief Complaint 'my whole body has been shaking' Reason for Visit 1 week follow-up. Patient presents to the office today for outpatient follow-up for bradycardia, discontinuation of Toprol. Last evaluated in clinic by myself last week. At that time heart rate 31, sinus rhythm. Dose of Toprol 100 mg daily was discontinued. Presents today ambulatory with steady gait. Accompanied by patient Patient denies any hospitalizations or significant changes to interval medical history since last office follow-up. History of Present Illness Patient is a pleasant 77-year-old female who presents to the office today complaining of my whole body shaking . She reports that this occurred approximately 48 hours after stopping her metoprolol and then seems to be getting better every day . Symptoms are not consistent with her atrial fibrillation, no evidence of hypoglycemia. Question if due to withdrawal of Toprol (had been on 200 mg for a number of years) Symptoms are starting to tiffany, she will continue to monitor. Not consistent with tremors from amiodarone dosage. Otherwise she continues to report shortness of breath with exertion and fatigability. This has been going on for a number of months. She denies any orthopnea or PND. No prior obstructive sleep apnea testing. She also reports occasionally waking up from sleep over this week feeling my heart rate beating fast . Denies any symptoms during waking hours. EKG in office bigeminy with unifocal PVCs. January 2023 Holter had greater than 17% PVC burden and at that time she was on Toprol 200 mg daily. She has also been compliant with amiodarone 200 mg daily. Her Toprol was weaned down and then ultimately discontinued due to significant asymptomatic sinus bradycardia with heart rate at 31. She denies any dizziness or lightheadedness, no prior syncopal episodes. She denies any rlzc-lex-amlatrx medications, no energy drinks, no diet pills. Electrolytes optimal, treated with magnesium. PVC burden 17% on Toprol 200 mg daily. Will start with ischemic workup and Lexiscan, will repeat 24-hour Holter now that she is off of beta-andres to reassess PVC burden. She is to seek emergent medical attention for any dizziness, lightheadedness. She will follow-up with Dr. Batres after testing. In regards to guideline directed medical therapy: Currently on highest tolerated dose. Patient reports that overall has no complaint(s) of chest pain, chest pressure/discomfort, lower extremity edema, and near-syncope Review of Systems Constitutional: Positive for malaise/fatigue. Cardiovascular: Positive for dyspnea on exertion and irregular heartbeat. Negative for chest pain, leg swelling, near-syncope, orthopnea, palpitations, paroxysmal nocturnal dyspnea and syncope. Respiratory: Positive for shortness of breath. Visit Vitals BP 108/70 (BP Location: Left arm, Patient Position: Sitting) Pulse 64 Ht 1.676 m (5' 6 ) Wt 94.8 kg (209 lb) BMI 33.73 kg/m Smoking Status Never BSA 2.1 m Physical Exam Vitals and nursing note reviewed. HENT: Head: Normocephalic. Cardiovascular: Rate and Rhythm: Normal rate and regular rhythm. Extrasystoles are present. Heart sounds: Normal heart sounds. Pulmonary: Effort: Pulmonary effort is normal. Breath sounds: Normal breath sounds. Abdominal: Palpations: Abdomen is soft. Musculoskeletal: Right lower leg: No edema. Left lower leg: No edema. Skin: General: Skin is warm and dry. Neurological: General: No focal deficit present. Mental Status: She is alert. Psychiatric: Mood and Affect: Mood normal. Behavior: Behavior normal. Allergies Allergen Reactions Oxycodone-Acetaminophen Hallucinations Cat Dander Runny nose Dog Dander Runny nose House Dust Runny nose Current Outpatient Medications Medication Instructions amiodarone (PACERONE) 200 mg, oral, Daily apixaban (ELIQUIS) 2.5 mg, oral, 2 times daily empagliflozin (JARDIANCE) 10 mg, oral, Daily FLUoxetine (PROzac) 20 mg capsule 1 tablet, oral, Daily losartan (Cozaar) 100 mg tablet 1 tablet, oral, Daily magnesium oxide (MAG-OX) 400 mg, oral, Daily pantoprazole (ProtoNix) 40 mg EC tablet 1 tablet, oral, Daily potassium chloride CR 10 mEq ER tablet 10 mEq, oral, Daily, Do not crush, chew, or split. spironolactone (Aldactone) 25 mg tablet 1 tablet, oral, Daily Assessment: 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 use Amiodarone start date September 07, 2021 EKG in office edilma, QTc 474 Surveillance testing has been scheduled towards the end of the month Cardiomyopathy (CMS/HCC) HFrEF 30-35% Jan 2023 TTE ( September 2021 MPI EF 48%: August 2021 TTE 30 to 35%, 2013 cath EF 45%) Functional class III stage C Fatigue and dyspnea on exertion GDMT: High-dose Toprol - needs stopped due to profound bradycardia Losartan Aldactone Entersto: no insurance coverage, unable to afford Jardiance: Jan 2023 QRS 104 Essential hypertension, benign optimal off high-dose Toprol Mild CAD 2014 cardiac cath trivial coronary artery disease September 2021 MPI no ischemia FC III fatigue and shortness of breath Daily activity less than 4 METS due to symptoms Paroxysmal atrial fibrillation (CMS/HCC) EKG in office bigeminy, underlying sinus rhythm January 2023 Holter no recurrent PAF Sick sinus syndrome (CMS/HCC) January 2023 Holter average heart rate 46 17.9% PVC burden Feb 21 2023: EKG sinus bradycardia with first-degree AV block at 31 bpm. Previously maintained on Toprol 200 mg daily; following Holter, dose was weaned down to 150 mg x 1 week, was on Toprol 100mg at time of OV. Toprol discontinued. Mar 01 2022: EKG bigeminy unifocal PVCs Denies any dizziness, lightheadedness. No prior syncopal episodes. Maintained on magnesium, Most recent potassium 4.9 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 CHADS VASc 5 low-dose Eliquis Unable to tolerate full dose Eliquis due to persistent vaginal bleeding BMI 34.0-34.9,adult Reviewed the merits of healthy lifestyle choices on overall cardiovascular health. Plan: Through informed decision making process incorporating patients unique circumstances, the following treatment plan will be initiated: 1. Prescription drug management of cardiovascular medication for efficacy, adherence to treatment, side effect assessment and polypharmacy. Current treatment clinically warranted and to continue without modifications. 2. 24 hour holter (PVC burden) 3. Lexiscan MPI (cardiomyopathy, shortness of breath, PVC burden). No treadmill due to fatigue 4. Return for follow-up; in the interim, contact the office if new symptoms arise. Dr. Jones after testing Delilah Turner MSN, 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, PMHNP-[facility] Please excuse any errors in grammar or translation related to this dictation. Voice recognition software was utilized to prepare this document. documented in this encounter [facility] Work Phone: 03-01-2023 Instructions LUCI Guido - 03/01/2023 12:30 PM EST Please bring all medicines, vitamins, and herbal supplements with you when you come to the office. Prescriptions will not be filled unless you are compliant with your follow up appointments or have a follow up appointment scheduled as per instruction of your physician. Refills should be requested at the time of your visit. EKG done in office today PLAN: Through informed decision making process incorporating patients unique circumstances, the following treatment plan will be initiated: 1. Prescription drug management of cardiovascular medication for efficacy, adherence to treatment, side effect assessment and polypharmacy. Current treatment clinically warranted and to continue without modifications. 2. 24 hour holter (PVC burden) 3. Lexiscan MPI (cardiomyopathy, shortness of breath, PVC burden). No treadmill due to fatigue 4. Return for follow-up; in the interim, contact the office if new symptoms arise. Dr. Jones after testing documented in this encounter [facility] Work Phone: 02-22-2023 Evaluation + Plan note Associated Problem(s): BMI 34.0-34.9,adult Reviewed the merits of healthy lifestyle choices on overall cardiovascular health. 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 Work Phone: 02-22-2023 Miscellaneous Notes Associated Problem(s): BMI 34.0-34.9,adult Reviewed the merits of healthy lifestyle choices on overall cardiovascular health. 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 Previously maintained on Toprol 200 mg daily; following Holter, dose was weaned down to 150 mg x 1 week, currently on 100 mg daily. She is asymptomatic with heart rate 31 bpm in the office today. Blood pressure is stable. Clinical scenario reviewed in detail with Dr. Batres, will discontinue Toprol. Will be seen in the office in 1 week. Associated Problem(s): Paroxysmal atrial fibrillation (CMS/HCC) EKG in office sinus bradycardia January 2023 Holter no recurrent PAF Associated Problem(s): Mild CAD 2014 cardiac cath trivial coronary artery disease September 2021 MPI no ischemia Associated Problem(s): Essential hypertension, benign Optimal in office Associated Problem(s): Cardiomyopathy (CMS/HCC) HFrEF 30-35% Jan 2023 TTE ( September 2021 MPI EF 48%: August 2021 TTE 30 to 35%, 2014 cath EF 45%) Functional class II-3 stage C GDMT: High-dose Toprol - needs stopped due to profound bradycardia Losartan Aldactone Entersto: no insurance coverage, unable to afford Jardiance: Jan 2023 QRS 104 Associated Problem(s): 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 use Amiodarone start date September 07, 2021 EKG in office sinus bradycardia, QTc 383 Surveillance testing has been scheduled towards the end of the month documented in this encounter [facility] Work Phone: 02-22-2023 Evaluation + Plan note Associated Problem(s): Sick sinus syndrome (CMS/HCC) January 2023 Holter average heart rate 46 17.9% PVC burden EKG in office today sinus bradycardia with first-degree AV block at 31 bpm. Previously maintained on Toprol 200 mg daily; following Holter, dose was weaned down to 150 mg x 1 week, currently on 100 mg daily. She is asymptomatic with heart rate 31 bpm in the office today. Blood pressure is stable. Clinical scenario reviewed in detail with Dr. Batres, will discontinue Toprol. Will be seen in the office in 1 week. [facility] Work Phone: 02-22-2023 Evaluation + Plan note Associated Problem(s): Paroxysmal atrial fibrillation (CMS/HCC) EKG in office sinus bradycardia January 2023 Holter no recurrent PAF [facility] Work Phone: 02-22-2023 Evaluation + Plan note Associated Problem(s): Mild CAD 2014 cardiac cath trivial coronary artery disease September 2021 MPI no ischemia [facility] Work Phone: 02-22-2023 Evaluation + Plan note Associated Problem(s): Essential hypertension, benign Optimal in office [facility] Work Phone: 02-22-2023 Evaluation + Plan note Associated Problem(s): Cardiomyopathy (CMS/HCC) HFrEF 30-35% Jan 2023 TTE ( September 2021 MPI EF 48%: August 2021 TTE 30 to 35%, 2013 cath EF 45%) Functional class II-3 stage C GDMT: High-dose Toprol - needs stopped due to profound bradycardia Losartan Aldactone Entersto: no insurance coverage, unable to afford Jardiance: Jan 2023 QRS 104 [facility] Work Phone: 02-22-2023 Evaluation + Plan note Associated Problem(s): 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 use Amiodarone start date September 07, 2021 EKG in office sinus bradycardia, QTc 383 Surveillance testing has been scheduled towards the end of the month [facility] Work Phone: 02-21-2023 History of Present illness Narrative Chief Complaint No problems Reason for Visit Patient presents to the office today for outpatient follow-up for testing follow-up. Last evaluated in clinic by January 2023. At that time patient complained of profound fatigability. Subsequent echo EF 30 to 35%. Holter monitor showed average heart rate of 46. She was then instructed to reduce Toprol 200 mg down to 150 mg for one 1 week then 100 mg daily. She was initiated on Jardiance. Entresto was cost prohibitive. Presents today ambulatory with steady gait. Accompanied by patient Patient denies any hospitalizations or significant changes to interval medical history since last office follow-up. History of Present Illness Patient is a pleasant 77-year-old who presents to the office today in good spirits. She reports being always tired and having no energy. She denies any dizziness, lightheadedness. No episodes of syncope. In the office today has incidental finding of a heart rate of 31 bpm. EKG is sinus rhythm. Blood pressure stable. She is asymptomatic. Clinical scenario reviewed in detail with Dr. Batres, at this time we will discontinue Toprol 100 mg daily. She will follow back in the office in 1 week. She has been instructed to seek emergent medical attention for any dizziness, lightheadedness or weakness. Otherwise, recent echo showed decline in EF and Holter with 17% PVC burden. She remains on highest tolerated dose of guideline directed medical therapy at this time. Unable to initiate beta-andres due to bradycardia, no Entresto due to cost. Her primary complaint is fatigability. Question if this is multifactorial due to bradycardia. Patient reports that overall has no complaint(s) of dyspnea, exertional chest pressure/discomfort, near-syncope, orthopnea, and palpitations Review of Systems Constitutional: Positive for malaise/fatigue. Cardiovascular: Negative for chest pain, dyspnea on exertion, irregular heartbeat, leg swelling, near-syncope, orthopnea, palpitations, paroxysmal nocturnal dyspnea and syncope. Visit Vitals BP 128/84 (BP Location: Left arm, Patient Position: Sitting) Pulse (!) 31 Ht 1.676 m (5' 6 ) Wt 95.3 kg (210 lb) BMI 33.89 kg/m Smoking Status Never BSA 2.11 m Physical Exam Vitals and nursing note reviewed. HENT: Head: Normocephalic. Cardiovascular: Rate and Rhythm: Regular rhythm. Bradycardia present. Heart sounds: Murmur heard. Systolic murmur is present. Pulmonary: Effort: Pulmonary effort is normal. Breath sounds: Normal breath sounds. Abdominal: Palpations: Abdomen is soft. Musculoskeletal: Right lower leg: No edema. Left lower leg: No edema. Skin: General: Skin is warm and dry. Neurological: General: No focal deficit present. Mental Status: She is alert. Psychiatric: Mood and Affect: Mood normal. Behavior: Behavior normal. Allergies Allergen Reactions Oxycodone-Acetaminophen Hallucinations Cat Dander Runny nose Dog Dander Runny nose House Dust Runny nose Current Outpatient Medications Medication Instructions amiodarone (PACERONE) 200 mg, oral, Daily apixaban (ELIQUIS) 2.5 mg, oral, 2 times daily cetirizine (ZyrTEC) 10 mg tablet 1 tablet, oral, Daily empagliflozin (JARDIANCE) 10 mg, oral, Daily FLUoxetine (PROzac) 20 mg capsule 1 tablet, oral, Daily losartan (Cozaar) 100 mg tablet 1 tablet, oral, Daily magnesium oxide (MAG-OX) 400 mg, oral, Daily pantoprazole (ProtoNix) 40 mg EC tablet 1 tablet, oral, Daily potassium chloride CR 10 mEq ER tablet 10 mEq, oral, Daily, Do not crush, chew, or split. spironolactone (Aldactone) 25 mg tablet 1 tablet, oral, Daily Assessment: 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 use Amiodarone start date September 07, 2021 EKG in office sinus bradycardia, QTc 383 Surveillance testing has been scheduled towards the end of the month Cardiomyopathy (CMS/HCC) HFrEF 30-35% Jan 2023 TTE ( September 2021 MPI EF 48%: August 2021 TTE 30 to 35%, 2014 cath EF 45%) Functional class II-3 stage C GDMT: High-dose Toprol - needs stopped due to profound bradycardia Losartan Aldactone Entersto: no insurance coverage, unable to afford Jardiance: Jan 2023 QRS 104 Essential hypertension, benign Optimal in office Mild CAD 2013 cardiac cath trivial coronary artery disease September 2021 MPI no ischemia Paroxysmal atrial fibrillation (CMS/HCC) EKG in office sinus bradycardia January 2023 Holter no recurrent PAF Sick sinus syndrome (CMS/HCC) January 2023 Holter average heart rate 46 17.9% PVC burden EKG in office today sinus bradycardia with first-degree AV block at 31 bpm. Previously maintained on Toprol 200 mg daily; following Holter, dose was weaned down to 150 mg x 1 week, currently on 100 mg daily. She is asymptomatic with heart rate 31 bpm in the office today. Blood pressure is stable. Clinical scenario reviewed in detail with Dr. Batres, will discontinue Toprol. Will be seen in the office in 1 week. 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 Plan: Through informed decision making process incorporating patients unique circumstances, the following treatment plan will be initiated: 1. Prescription drug management of cardiovascular medication for efficacy, adherence to treatment, side effect assessment and polypharmacy. Current treatment clinically warranted and to continue with following modifications: - Stop metoprolol 2. Return for follow-up; in the interim, contact the office if new symptoms arise. COLLECTIONS ATTORNEY one week 3. Labs (chem6, TSH) Delilah Turner MSN, 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, PMHNP-[facility] Please excuse any errors in grammar or translation related to this dictation. Voice recognition software was utilized to prepare this document. documented in this encounter [facility] Work Phone: 02-21-2023 Instructions LUCI Guido - 02/21/2023 10:30 AM EST Please bring all medicines, vitamins, and herbal supplements with you when you come to the office. Prescriptions will not be filled unless you are compliant with your follow up appointments or have a follow up appointment scheduled as per instruction of your physician. Refills should be requested at the time of your visit. EKG done in office today PLAN: Through informed decision making process incorporating patients unique circumstances, the following treatment plan will be initiated: 1. Prescription drug management of cardiovascular medication for efficacy, adherence to treatment, side effect assessment and polypharmacy. Current treatment clinically warranted and to continue with following modifications: - Stop metoprolol 2. Return for follow-up; in the interim, contact the office if new symptoms arise. COLLECTIONS ATTORNEY one week 3. Labs (chem6, TSH) documented in this encounter [facility] Work Phone: 02-13-2023 Miscellaneous Notes Hazel requesting refill of Losartan documented in this encounter [facility] 02-13-2023 Telephone encounter Note Hazel requesting refill of Losartan [facility] 02-01-2023 History of Present illness Narrative Images from the original note were not included. [id number] [facility] [id number] SUBJECTIVE: Patient ID: Eduardo Howard is a 77 y.o. female. 77 o WF with depression worse lately and found that 20mg fluoxetine helpled better x 2 d, also zyrtec no longer working, working with cardiology for heart issues, using 3 pillows at night and cariology is aware The following portions of the patient's history were reviewed and updated as appropriate: allergies, current medications, past family history, past medical history, past social history, past surgical history and problem list. REVIEW OF SYSTEMS: Review of Systems Constitutional: Positive for fatigue. Respiratory: Negative. Cardiovascular: Negative. Gastrointestinal: Negative. Genitourinary: Negative. Psychiatric/Behavioral: Positive for dysphoric mood. PHYSICAL EXAMINATION: Vitals: 02/01/23 0940 BP: 122/84 BP Site: Left Arm BP Postition: Sitting BP CUFF SIZE: M (9-13 inches) Pulse: 60 Resp: 16 Weight: 96.4 kg (212 lb 8 oz) Height: 167.6 cm (5' 6 ) Physical Exam Vitals and nursing note reviewed. Constitutional: Appearance: Normal appearance. HENT: Head: Normocephalic and atraumatic. Eyes: Extraocular Movements: Extraocular movements intact. Pupils: Pupils are equal, round, and reactive to light. Cardiovascular: Rate and Rhythm: Normal rate and regular rhythm. Pulses: Normal pulses. Heart sounds: Normal heart sounds. Pulmonary: Effort: Pulmonary effort is normal. Breath sounds: Normal breath sounds. Neurological: General: No focal deficit present. Mental Status: She is alert and oriented to person, place, and time. Psychiatric: Mood and Affect: Mood normal. Behavior: Behavior normal. ASSESSMENT/PLAN: Eduardo was seen today for routine check up. Diagnoses and all orders for this visit: Essential hypertension Paroxysmal A-fib (CMS-HCC) Chronic diastolic congestive heart failure (CMS-HCC) H/O gastric bypass Nephrolithiasis Other orders - fexofenadine (KRISTINA) 180 mg tablet; Take 1 tablet (180 mg total) by mouth in the morning. - FLUoxetine (PROzac) 20 mg capsule; Take 1 capsule (20 mg total) by mouth in the morning. Follow-up: Recheck in6m Prozac 20mg 1 qd F/u cardiology Try kristina generic [facility] Evaluation + Plan note Associated Problem(s): BMI 34.0-34.9,adult Reviewed the merits of healthy lifestyle choices on overall cardiovascular health. 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 Work Phone: 01-17-2023 Miscellaneous Notes Associated Problem(s): BMI 34.0-34.9,adult Reviewed the merits of healthy lifestyle choices on overall cardiovascular health. 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 Return to clinic to transition to Entresto and initiate Jardiance if warranted. Associated Problem(s): 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 use Amiodarone start date September 07, 2021 EKG in office maintaining sinus bradycardia with PVCs, QTc 451 Surveillance testing completed July 2022 documented in this encounter [facility] Work Phone: 01-17-2023 Evaluation + Plan note Associated Problem(s): Mild CAD 2013 cardiac cath trivial coronary artery disease September 2021 MPI no ischemia [facility] Work Phone: 01-17-2023 Evaluation + Plan note Associated Problem(s): Essential hypertension, benign Optimal in office [facility] Work Phone: 01-17-2023 Evaluation + Plan note Associated Problem(s): Cardiomyopathy (CMS/HCC) Heart failure improved EF 48% September 2021 MPI (August 2021 TTE 30 to 35%, 2014 cath EF 45%) Functional class II-3 stage C GDMT: High-dose Toprol Losartan Aldactone No prior Jardiance, last creatinine 1.55 Will repeat echocardiogram to reassess EF. Return to clinic to transition to Entresto and initiate Jardiance if warranted. [facility] Work Phone: 01-17-2023 Evaluation + Plan note Associated Problem(s): 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 use Amiodarone start date September 07, 2021 EKG in office maintaining sinus bradycardia with PVCs, QTc 451 Surveillance testing completed July 2022 [facility] Work Phone: 01-17-2023 History of Present illness Narrative Chief Complaint I just have no energy Reason for Visit Routine 6-month follow-up. Patient presents to the office today for outpatient follow-up for atrial fibrillation, cardiomyopathy. Last evaluated in clinic by Dr. Batres July 2022. Presents today ambulatory with steady gait. Accompanied by patient Patient denies any hospitalizations or significant changes to interval medical history since last office follow-up. She follows routinely with PCP. History of Present Illness Patient is a pleasant 77-year-old female who presents to the office today reporting significant fatigability. She is sedentary by choice, does complete ADLs and has stairs at home. She ambulated in from the parking lot without complaints. She reports a change in her exercise capacity and just having no energy . She reports 3 pillow orthopnea, no PND. No fluid retention or weight gain. She had no shortness of breath ambulating from the parking lot. She is concerned regarding hair loss possibly related to amiodarone. July 2022 creatinine 1.55, potassium 4.5. September 2021 Holter average heart rate 49 with PVCs. EKG in the office sinus bradycardia with PVCs. She denies dizziness or lightheadedness. Her primary concern today is his continued fatigability. She has been on high-dose metoprolol for a number of years. Repeat echocardiogram and if LVEF remains 40% will return back to the clinic to initiate Entresto and Jardiance. Otherwise, will discuss with Dr. Batres if okay to reduce amiodarone due to concerns of hair loss. Patient reports that overall has no complaint(s) of chest pain, chest pressure/discomfort, dyspnea, exertional chest pressure/discomfort, irregular heart beat, lower extremity edema, and palpitations Review of Systems Constitutional: Positive for malaise/fatigue. Cardiovascular: Positive for orthopnea. Negative for chest pain, dyspnea on exertion, irregular heartbeat, leg swelling, near-syncope, palpitations, paroxysmal nocturnal dyspnea and syncope. Visit Vitals BP 142/80 (BP Location: Right leg, Patient Position: Sitting) Pulse (!) 46 Ht 1.676 m (5' 6 ) Wt 97.1 kg (214 lb) BMI 34.54 kg/m Smoking Status Never BSA 2.13 m Physical Exam Vitals and nursing note reviewed. HENT: Head: Normocephalic. Cardiovascular: Rate and Rhythm: Regular rhythm. Bradycardia present. Occasional Extrasystoles are present. Heart sounds: Normal heart sounds. Pulmonary: Effort: Pulmonary effort is normal. Breath sounds: Normal breath sounds. Abdominal: Palpations: Abdomen is soft. Musculoskeletal: Right lower leg: No edema. Left lower leg: No edema. Skin: General: Skin is warm and dry. Neurological: General: No focal deficit present. Mental Status: She is alert. Psychiatric: Mood and Affect: Mood normal. Behavior: Behavior normal. Allergies Allergen Reactions Cat Dander Unknown Dog Dander Unknown House Dust Unknown Oxycodone-Acetaminophen Hallucinations Current Outpatient Medications Medication Instructions amiodarone (PACERONE) 200 mg, oral, Daily apixaban (ELIQUIS) 2.5 mg, oral, 2 times daily cetirizine (ZyrTEC) 10 mg tablet 1 tablet, oral, Daily FLUoxetine (PROzac) 10 mg tablet 1 tablet, oral, Daily losartan (Cozaar) 100 mg tablet 1 tablet, oral, Daily metoprolol succinate XL (TOPROL-XL) 200 mg, oral, Daily, Do not crush or chew. pantoprazole (ProtoNix) 40 mg EC tablet 1 tablet, oral, Daily spironolactone (Aldactone) 25 mg tablet 1 tablet, oral, Daily Assessment: 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 use Amiodarone start date September 07, 2021 EKG in office maintaining sinus bradycardia with PVCs, QTc 451 Surveillance testing completed July 2022 Cardiomyopathy (CMS/HCC) Heart failure improved EF 48% September 2021 MPI (August 2021 TTE 30 to 35%, 2014 cath EF 45%) Functional class II-3 stage C GDMT: High-dose Toprol Losartan Aldactone No prior Jardiance, last creatinine 1.55 Will repeat echocardiogram to reassess EF. Return to clinic to transition to Entresto and initiate Jardiance if warranted. 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 Plan: Through informed decision making process incorporating patients unique circumstances, the following treatment plan will be initiated: 1. Prescription drug management of cardiovascular medication for efficacy, adherence to treatment, side effect assessment and polypharmacy. Current treatment clinically warranted and to continue without modifications. 2. Labs (chem6, BTNP) 3. Echo (cardiomyopathy) 4. Return for follow-up; in the interim, contact the office if new symptoms arise. COLLECTIONS ATTORNEY one month 5. 24 hour holter Delilah Turner MSN, ELECTROSTATIC POWDER COATING TECHNICIAN-KM, P[facility] Please excuse any errors in grammar or translation related to this dictation. Voice recognition software was utilized to prepare this document. documented in this encounter [facility] Work Phone: 01-17-2023 Instructions LUCI Guido - 01/17/2023 9:30 AM EST Please bring all medicines, vitamins, and herbal supplements with you when you come to the office. Prescriptions will not be filled unless you are compliant with your follow up appointments or have a follow up appointment scheduled as per instruction of your physician. Refills should be requested at the time of your visit. Fall Prevention Education Given EKG done in office today PLAN: Through informed decision making process incorporating patients unique circumstances, the following treatment plan will be initiated: 1. Prescription drug management of cardiovascular medication for efficacy, adherence to treatment, side effect assessment and polypharmacy. Current treatment clinically warranted and to continue without modifications. 2. Labs (chem6, BTNP) 3. Echo (cardiomyopathy) 4. Return for follow-up; in the interim, contact the office if new symptoms arise. COLLECTIONS ATTORNEY one month documented in this encounter [facility] Work Phone: 09-13-2022 Hospital Discharge instructions Patient Education 09/13/2022 11:04:19 Kidney Stones, [id number]-fp-[id number] Kidney Stones Kidney stones are rock-like masses that form inside of the kidneys. Kidneys are organs that make pee (urine). A kidney stone may move into other parts of the urinary tract, including: The tubes that connect the kidneys to the bladder (ureters). The bladder. The tube that carries urine out of the body (urethra). Kidney stones can cause very bad pain and can block the flow of pee. The stone usually leaves your body (passes) through your pee. You may need to have a doctor take out the stone. What are the causes? Kidney stones may be caused by: A condition in which certain glands make too much parathyroid hormone (primary hyperparathyroidism). A buildup of a type of crystals in the bladder made of a chemical called uric acid. The body makes uric acid when you eat certain foods. Narrowing (stricture) of one or both of the ureters. A kidney blockage that you were born with. Past surgery on the kidney or the ureters, such as gastric bypass surgery. What increases the risk? You are more likely to develop this condition if: You have had a kidney stone in the past. You have a family history of kidney stones. You do not drink enough water. You eat a diet that is high in protein, salt (sodium), or sugar. You are overweight or very overweight (obese). What are the signs or symptoms? Symptoms of a kidney stone may include: Pain in the side of the belly, right below the ribs (flank pain). Pain usually spreads (radiates) to the groin. Needing to pee often or right away (urgently). Pain when going pee (urinating). Blood in your pee (hematuria). Feeling like you may vomit (nauseous). Vomiting. Fever and chills. How is this treated? Treatment depends on the size, location, and makeup of the kidney stones. The stones will often pass out of the body through peeing. You may need to: Drink more fluid to help pass the stone. In some cases, you may be given fluids through an IV tube put into one of your veins at the hospital. Take medicine for pain. Make changes in your diet to help keep kidney stones from coming back. Sometimes, medical procedures are needed to remove a kidney stone. This may involve: A procedure to break up kidney stones using a beam of light (laser) or shock waves. Surgery to remove the kidney stones. Follow these instructions at home: Medicines Take misy-bdi-qootwqu and prescription medicines only as told by your doctor. Ask your doctor if the medicine prescribed to you requires you to avoid driving or using heavy machinery. Eating and drinking Drink enough fluid to keep your pee pale yellow. You may be told to drink at least 8 10 glasses of water each day. This will help you pass the stone. If told by your doctor, change your diet. This may include: ?Limiting how much salt you eat. ?Eating more fruits and vegetables. ?Limiting how much meat, poultry, fish, and eggs you eat. Follow instructions from your doctor about eating or drinking restrictions. General instructions Collect pee samples as told by your doctor. You may need to collect a pee sample: ?24 hours after a stone comes out. ?8 12 weeks after a stone comes out, and every 6 12 months after that. Strain your pee every time you pee (urinate), for as long as told. Use the strainer that your doctor recommends. Do not throw out the stone. Keep it so that it can be tested by your doctor. Keep all follow-up visits as told by your doctor. This is important. You may need follow-up tests. How is this prevented? To prevent another kidney stone: Drink enough fluid to keep your pee pale yellow. This is the best way to prevent kidney stones. Eat healthy foods. Avoid certain foods as told by your doctor. You may be told to eat less protein. Stay at a healthy weight. Where to find more information National Kidney Foundation (NKF): www.kidney.org [facility] (UCF): www.urologyhealth.org Contact a doctor if: You have pain that gets worse or does not get better with medicine. Get help right away if: You have a fever or chills. You get very bad pain. You get new pain in your belly (abdomen). You pass out (faint). You cannot pee. Summary Kidney stones are rock-like masses that form inside of the kidneys. Kidney stones can cause very bad pain and can block the flow of pee. The stones will often pass out of the body through peeing. Drink enough fluid to keep your pee pale yellow. This information is not intended to replace advice given to you by your health care provider. Make sure you discuss any questions you have with your health care provider. Document Revised: 09/28/2021 Document Reviewed: 09/28/2021 [employer] Patient Education 2022 [employer]. Follow Up Care 06/09/2022 09:35:46 With:HARPER DE LA ROSA, Allyson Montenegro, URL Address: [facility] [address] [place] [address] [phone] When: Unknown [facility] 10-08-2020 Note HNO ID: [id number] Author: Phil Brooks MD Service: ? Author Type: Physician Type: Progress Notes Filed: 10/07/2020 10:56 PM Note Text: PATIENT NAME: Hernando Howard CLINIC NO.: [id number] ATTENDING PHYSICIAN: Phil Brooks MD DATE OF SERVICE: October 07, [address] Allyson Saleem thank you for referring Mrs. Hernando Howard for an opinion regarding history of pulmonary embolism. CHIEF COMPLAINT: I had blood clots and now needs surgery HPI: Hernando Howard is a 75 year old year old female with past medical history significant for hypertension who in early January 2019 developed cholecystitis. During that episode patient subsequently also developed atrial fibrillation. Patient was placed on Eliquis. Subsequently underwent cholecystectomy. Shortly thereafter developed upper GI bleed. Readmitted to the hospital taken off anticoagulation. Upper endoscopy with some erosions which per patient were treated and he further did not have any additional GI bleeds. Few days after this episode patient developed increasing shortness of breath and imaging studies February 2019 demonstrated pulmonary emboli. Patient was restarted back on Eliquis which she continues on the state. Patient subsequent underwent cardioversion as well for atrial fibrillation and per cardiology has been continued on Eliquis for atrial fibrillation. Patient has a history of nephrolithiasis and has undergone multiple lithotripsies in the past and will require another procedure shortly and urology has referred patient here for management of her anticoagulation. She denies any previous history of thromboembolism. She also denies any family history of thromboembolism. Current Outpatient Medications Medication Sig - metoprolol tartrate, short acting, (LOPRESSOR) 100 mg tablet TAKE 1 AND 1/2 TABLET BY MOUTH TWO TIMES A DAY - pantoprazole DR (PROTONIX) 40 mg tablet TAKE ONE TABLET BY MOUTH TWICE A DAY - potassium chloride ER (KLOR-CON M20) 20 mEq tablet TAKE ONE TABLET BY MOUTH DAILY - flecainide (TAMBOCOR) 50 mg tablet Take 50 mg by mouth. - apixaban (ELIQUIS) 5 mg tab(s) 1 tab BID - furosemide (LASIX) 40 mg tablet TAKE ONE TABLET BY MOUTH DAILY - losartan (COZAAR) 100 mg tablet TAKE ONE TABLET BY MOUTH DAILY - cetirizine (ZYRTEC) 10 mg tablet Take 10 mg by mouth. No current facility-administered medications for this visit. ALLERGIES Allergen Reactions - Aspirin Other: See Comments Ulcers - Codeine Other: See Comments nausea nausea - Ibuprofen Other: See Comments Ulcers - Morphine Other: See Comments nausea nausea - Narcotics [Opioids * Other: See Comments PAST MEDICAL HISTORY Diagnosis Date - Anticoagulant long-term use - Atrial fibrillation (HCC) - DVT (deep venous thrombosis) (HCC) - Elevated d-dimer - Hypertension - Kidney stones - Pulmonary embolism (HCC) PAST SURGICAL HISTORY Procedure Laterality Date - LIGATE FALLOPIAN TUBE 1977 - PANNICULECTOMY 01/2005 - REMOVAL GALLBLADDER 2018 - REMV CATARACT EXTRACAP,INSERT LENS 2016 - ARIANNE-EN-Y GASTRIC BYPASS COLONIC CONDUIT - SCREENING COLONSCOPY NOT HIGH RISK 2002, 2007 - TONSILLECTOMY HX 1949 FAMILY HISTORY Problem Relation Age of Onset - Colon Cancer Mother - Diabetes Father - Heart disease Father Social History Tobacco Use - Smoking status: Never Smoker - Smokeless tobacco: Never Used Vaping Use - Vaping Use: Never used Substance Use Topics - Alcohol use: Not on file - Drug use: Never REVIEW OF SYSTEMS GENERAL: No weight loss, malaise or fevers. No night sweats. HEENT: Negative for headaches, No changes in hearing or vision, no nose bleeds or other nasal problems. RESPIRATORY: Negative for cough, wheezing and shortness of breath CARDIOVASCULAR: Negative for chest pain, leg swelling and palpitations GI: Negative for abdominal discomfort, blood in stools or black stools and change in bowel habits : Negative for dysuria, frequency and incontinence MUSCULOSKELETAL: Negative for joint pain or swelling, back pain, and muscle pain. SKIN: Negative for lesions, rash, and itching. HEMATOLOGY/LYMPHOLOGY Negative for prolonged bleeding, bruising easily, and swollen nodes. NEURO: Negative for numbness or tingling of hands/feet. No weakness. PHYSICAL EXAMINATION: BP 160/87 Pulse 75 Temp (!) 35.9 ?C (96.7 ?F) (Temporal) Resp 16 Ht 168.9 cm (5' 6.5 ) Wt 115.6 kg (254 lb 12.8 oz) SpO2 95% BMI 40.51 kg/m? Wt 115.6 kg (254 lb 12.8 oz) BMI 40.51 kg/m2 Last 3 Encounter Wt Readings: Date: Wt: 10/07/2020 115.6 kg (254 lb 12.8 oz) General appearance:ECOG PERFORMANCE STATUS: 0- Fully active, able to carry on all pre-disease performance w/o restriction. Patient in NAD. Skin: Skin color, texture, turgor normal. No rashes or lesions. Eyes: Anicteric sclera. Pupils are equally round and reactive to light. Extraocular movements are intact. Breast: No palpa (more content not included)... [facility] Chief complaint Narrative - Reported SELF REFERRAL RE-ESTABLISH ISSUE WITH MEDS. [facility] [address] DO Work Phone: Chief complaint Narrative - Reported SELF REFERRAL RE-ESTABLISH ISSUE WITH MEDS. [facility] Work Phone: Evaluation + Plan note Future Appointments Appointment Date:09/16/2023 10:15:00 AM Scheduled Provider:Allyson SALEEM MD Location:[facility] Appointment Type:URO Office Visit [facility] Evaluation + Plan note Future Appointments Appointment Date:09/16/2023 10:15:00 AM Scheduled Provider:Allyson SALEEM MD Location:[facility] Appointment Type:URO Office Visit Diagnostic Tests PendingUrine Culture 09/22/22 [facility] Evaluation + Plan note Future Appointments Appointment Date:09/17/2024 10:15:00 AM Scheduled Provider:Allyson SALEEM MD Location:[facility] Appointment Type:URO Office Visit [facility] Evaluation + Plan note Future Appointments Appointment Date:10/23/2024 02:30:00 PM Scheduled Provider:Allyson SALEEM MD Location:[facility] Appointment Type:URO Procedure 15 min [facility] Evaluation note No assessment inform ation available [facility] Work Phone: Evaluation note Diagnosis Paroxysmal atrial fibrillation (CMS/HCC)- Primary Atrial fibrillation 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 use 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 Cardiomyopathy, unspecified type (CMS/HCC) Mild CAD Essential hypertension, benign BMI 34.0-34.9,adult Abnormal electrocardiogram (ECG) (EKG) documented in this encounter [facility] Work Phone: Evaluation note* Diagnosis Cardiomyopathy, unspecified type (CMS/HCC) Abnormal electrocardiogram (ECG) (EKG) documented in this encounter [facility] Work Phone: Evaluation note* Diagnosis Cardiomyopathy, unspecified type (CMS/HCC) Abnormal electrocardiogram (ECG) (EKG) documented in this encounter 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 Work Phone: Evaluation note* Diagnosis Other cardiomyopathy (CMS/HCC)- Primary Sick sinus syndrome (CMS/HCC) Sinoatrial node dysfunction Paroxysmal atrial fibrillation (CMS/HCC) Atrial fibrillation 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 use 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 Mild CAD Essential hypertension, benign BMI 34.0-34.9,adult Abnormal electrocardiogram (ECG) (EKG) documented in this encounter [facility] Work Phone: Evaluation note* Diagnosis Paroxysmal atrial fibrillation (Multi)- Primary Atrial fibrillation 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 use 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 Cardiomyopathy, unspecified type (Multi) Mild CAD Essential hypertension, benign BMI 34.0-34.9,adult Abnormal electrocardiogram (ECG) (EKG) Cardiomyopathy, unspecified type (Multi)- Primary Paroxysmal atrial fibrillation (Multi) Atrial fibrillation 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 use Mild CAD Essential hypertension, benign 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 BMI 34.0-34.9,adult Sick sinus syndrome (Multi) Sinoatrial node dysfunction Other cardiomyopathy- Primary Sick sinus syndrome (Multi) Sinoatrial node dysfunction Paroxysmal atrial fibrillation (Multi) Atrial fibrillation 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 use 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 Mild CAD Essential hypertension, benign BMI 34.0-34.9,adult Abnormal electrocardiogram (ECG) (EKG) Paroxysmal atrial fibrillation (Multi)- Primary Atrial fibrillation PVC (premature ventricular contraction) Other premature beats Mild CAD Essential hypertension, benign Dilated cardiomyopathy (Multi) Other primary cardiomyopathies Sick sinus syndrome (Multi) Sinoatrial node dysfunction 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 use Never smoked cigarettes BMI 33.0-33.9,adult Obesity, Class I, BMI 30-34.9 documented in this encounter 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 Cardiomyopathy, unspecified type (Multi) Mild CAD Essential hypertension, benign BMI 34.0-34.9,adult Abnormal electrocardiogram (ECG) (EKG) Cardiomyopathy, unspecified type (Multi)- Primary Paroxysmal atrial fibrillation (Multi) Atrial fibrillation 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 use Mild CAD Essential hypertension, benign 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 BMI 34.0-34.9,adult Sick sinus syndrome (Multi) Sinoatrial node dysfunction Other cardiomyopathy- Primary Sick sinus syndrome (Multi) Sinoatrial node dysfunction Paroxysmal atrial fibrillation (Multi) Atrial fibrillation 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 use 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 Mild CAD Essential hypertension, benign BMI 34.0-34.9,adult Abnormal electrocardiogram (ECG) (EKG) Dilated cardiomyopathy (Multi) Other primary cardiomyopathies documented in this encounter [facility] Work Phone: Evaluation note* Diagnosis Paroxysmal A-fib (CMS-HCC)- Primary [facility] Diagnosis Paroxysmal A-fib (CMS-HCC)- Primary [facility]* Diagnosis Essential hypertension- Primary Unspecified essential hypertension Paroxysmal A-fib (CMS-HCC) Chronic diastolic congestive heart failure (CMS-HCC) H/O gastric bypass Nephrolithiasis Calculus of kidney documented [facility]* Diagnosis Routine general medical examination at a health care facility- Primary Essential hypertension Unspecified essential hypertension Paroxysmal A-fib (CMS-HCC) Chronic diastolic congestive heart failure (CMS-HCC) H/O gastric bypass Encounter for screening mammogram for malignant neoplasm of breast 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 Single subsegmental pulmonary embolism without acute cor pulmonale (CMS-HCC) documented [facility]* Diagnosis Atrial fibrillation, unspecified type (CMS-HCC)- Primary documented in [facility]* Diagnosis Atrial fibrillation, unspecified type (CMS-HCC)- Primary documented in [facility]* Diagnosis Atrial fibrillation, unspecified type (CMS-HCC)- Primary documented in [facility]* Diagnosis Atrial fibrillation, unspecified type (CMS-HCC)- Primary documented in [facility]* Diagnosis Paroxysmal A-fib (CMS-HCC)- Primary Paroxysmal atrial fibrillation (CMS-HCC)- Primary Atrial fibrillation documented in [facility]* Diagnosis Paroxysmal A-fib (CMS-HCC)- Primary documented in [facility]* Diagnosis Atrial fibrillation, unspecified type (CMS-HCC)- Primary documented in [facility]* Diagnosis Paroxysmal A-fib (CMS-HCC)- Primary Single subsegmental pulmonary embolism without acute cor pulmonale (CMS-HCC) documented in this encounter [facility]* Diagnosis Paroxysmal atrial fibrillation (Multi)- Primary Atrial fibrillation 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 use 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 Cardiomyopathy, unspecified type (Multi) Mild CAD Essential hypertension, benign BMI 34.0-34.9,adult Abnormal electrocardiogram (ECG) (EKG) Cardiomyopathy, unspecified type (Multi)- Primary Paroxysmal atrial fibrillation (Multi) Atrial fibrillation 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 use Mild CAD Essential hypertension, benign 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 BMI 34.0-34.9,adult Sick sinus syndrome (Multi) Sinoatrial node dysfunction Other cardiomyopathy- Primary Sick sinus syndrome (Multi) Sinoatrial node dysfunction Paroxysmal atrial fibrillation (Multi) Atrial fibrillation 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 use 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 Mild CAD Essential hypertension, benign BMI 34.0-34.9,adult Abnormal electrocardiogram (ECG) (EKG) Chronic systolic heart failure- Primary Essential hypertension, benign Cardiomyopathy, unspecified type (Multi) 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 use Paroxysmal atrial fibrillation (Multi) Atrial fibrillation Chronic diastolic congestive heart failure 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 Cardiomyopathy, unspecified type (Multi) Mild CAD Essential hypertension, benign BMI 34.0-34.9,adult Abnormal electrocardiogram (ECG) (EKG) Cardiomyopathy, unspecified type (Multi)- Primary Paroxysmal atrial fibrillation (Multi) Atrial fibrillation 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 use Mild CAD Essential hypertension, benign 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 Work Phone: Evaluation note* Diagnosis Yeast infection- Primary documented in this [facility]* Diagnosis Encounter for Medicare annual wellness exam- Primary Paroxysmal A-fib (CMS-HCC) Single subsegmental pulmonary embolism without acute cor pulmonale ([facility]-HCC) Chronic diastolic congestive heart failure (CMS-HCC) Essential hypertension Unspecified essential hypertension Acoustic neuroma ([facility]-HCC) Benign neoplasm of cranial nerves Yeast infection PUD (peptic ulcer disease) Peptic ulcer, unspecified site, unspecified as acute or chronic, without mention of hemorrhage, perforation, or obstruction Hypothyroidism (acquired) Unspecified hypothyroidism documented in this [facility]* Diagnosis Paroxysmal A-fib (CMS-HCC)- Primary documented in this [facility]* Diagnosis PUD (peptic ulcer disease) Peptic ulcer, unspecified site, unspecified as acute or chronic, without mention of hemorrhage, perforation, or obstruction documented in this [facility] SystemHistory [facility] Present illness Narrative* Patient is referred for management after long absence. In the past she was found to have trivial coronary atherosclerosis and mild impairment of left ventricular systolic function. Subsequently, though, she was lost to follow-up and she has been getting her care in [facility] from the [place] [facility] * Recently, her inside parts sales became ill and she has not had any continuity of care ever since. She had been plagued by paroxysmal atrial fibrillation and it appears that the attending inside parts sales placed her on flecainide. This would lead me to suspect she had no manifestations of coronary disease or cardiomyopathy and it sounds like the arrhythmia control has been good. Interestingly they also placed her on Eliquis therapy and she has significant problems with recurrent vaginal bleeding on this agent. It was stopped and resumed at 50% with no problems but once again a different caregiver recomm ended full dose Eliquis and she bled again. * She wishes my advice. I advised her that maintenance of sinus rhythm reduces her risk of stroke. I also suggested any antithrombotic therapy will further reduce risk of stroke. Not been on full dose antithrombotic therapy, does leave some residual risk for stroke albeit small I suggested to her we would probably have to find a compromise to her management because absolute implementation of aggressive therapy is obviously not tolerable. * Along the lines of the vaginal bleeding she underwent extensive gynecologic evaluation with no findings and because of this it appears that any correctable cause has not been identified and there is nothing to intervene upon and because of this we will need to adjust her antithrombotic therapy downward. After discussing the concept of relative risk versus benefit she appears comfortable with our recommendation and because of this she will continue flecainide, continue Eliquis at a low dose, andwe recommend an echocardiogram to make certain that her cardiomyopathy is gone and resolved becauseof the fact that she is on flecainide therapy. * She will follow-up in the near future when the results of the echo are available. I did advocate the merits of diet and weight loss in the interim. [facility] [address] DO Work Phone: History of Present illness Narrative* Patient is referred for management after long absence. In the past she was found to have trivial coronary atherosclerosis and mild impairment of left ventricular systolic function. Subsequently, though, she was lost to follow-up and she has been getting her care in [facility] from the [place] [facility] * Recently, her inside parts sales became ill and she has not had any continuity of care ever since. She had been plagued by paroxysmal atrial fibrillation and it appears that the attending inside parts sales placed her on flecainide. This would lead me to suspect she had no manifestations of coronary disease or cardiomyopathy and it sounds like the arrhythmia control has been good. Interestingly they also placed her on Eliquis therapy and she has significant problems with recurrent vaginal bleeding on this agent. It was stopped and resumed at 50% with no problems but once again a different caregiver recomm ended full dose Eliquis and she bled again. * She wishes my advice. I advised her that maintenance of sinus rhythm reduces her risk of stroke. I also suggested any antithrombotic therapy will further reduce risk of stroke. Not been on full dose antithrombotic therapy, does leave some residual risk for stroke albeit small I suggested to her we would probably have to find a compromise to her management because absolute implementation of aggressive therapy is obviously not tolerable. * Along the lines of the vaginal bleeding she underwent extensive gynecologic evaluation with no findings and because of this it appears that any correctable cause has not been identified and there is nothing to intervene upon and because of this we will need to adjust her antithrombotic therapy downward. After discussing the concept of relative risk versus benefit she appears comfortable with our recommendation and because of this she will continue flecainide, continue Eliquis at a low dose, andwe recommend an echocardiogram to make certain that her cardiomyopathy is gone and resolved becauseof the fact that she is on flecainide therapy. * She will follow-up in the near future when the results of the echo are available. I did advocate the merits of diet and weight loss in the interim. [facility] Work Phone: History of Present illness Narrative* The patient presents with non-ischemic heart failure with reduced ejection fraction. The patient's last LV ejection fraction was 30-35%. The patient is NYHA functional Class II. This is stage C heartfailure. * Symptoms: denies lower extremity edema, stable dyspnea on exertion, stable fatigue, stable exerciseintolerance, stable orthopnea and denies paroxysmal nocturnal dyspnea. Associated symptoms include recent 4 pounds weight loss, but no chest pain. * Home Monitoring: The patient is not checking weight at home. * Medications: the patient is adherent with her medication regimen. She denies medication side effects. [facility] [employer] Work Phone: History of Present illness Narrative* The patient presents with non-ischemic heart failure with preserved ejection fraction. The patient's last LV ejection fraction was 30-48%%. The patient is NYHA functional Class II. This is stage C heart failure. * Symptoms: denies lower extremity edema, improved dyspnea on exertion, stable fatigue, stable exercise intolerance, denies orthopnea and denies paroxysmal nocturnal dyspnea. Associated symptoms include recent 3 pounds weight loss. * Medications: the patient is adherent with her medication regimen. She denies medication side effects. [facility] Work Phone: History of Present illness Narrative* The patient presents with non-ischemic heart failure with preserved ejection fraction. The patient's last LV ejection fraction was 30-48%%. The patient is NYHA functional Class II. This is stage C heart failure. * Symptoms: denies lower extremity edema, improved dyspnea on exertion, stable fatigue, stable exercise intolerance, denies orthopnea and denies paroxysmal nocturnal dyspnea. Associated symptoms include recent 3 pounds weight loss. * Medications: the patient is adherent with her medication regimen. She denies medication side effects. [facility] Work Phone: History of Present illness Narrative* Patient returns for follow-up of problems as noted. She is done well. She has no manifestations of heart failure and she states that the recent adjustments to medical therapy significantly improved her feeling of edema retention and/or dyspnea. I believe is the spironolactone. * We note she is on 200 mg of metoprolol tartrate and I believe succinate to be superior because of this that changes made. She is on afterload reduction and spironolactone with improvement in ejectionfraction of 45%. I suggested if she had more symptoms we would add Jardiance but for the time beingwe will continue as is. We feel that her cardiomyopathy is adequately treated as is hypertension and paroxysmal atrial fibrillation. She has no manifestations of her mild coronary disease which was previously identified and evaluated and we doubt progression. In light of all the above we suggest the change to metoprolol succinate but otherwise continued therapy as is and follow-up in 6 to 9 months. We did advocate the merits of diet exercise and weight loss. [facility] Work Phone: History of Present illness Narrative* Olinda Elena, [facility] - 12/16/2023 3:15 PM EST 15 minute [id number] follow-up anticoagulation appointment. INR performed in office per protocol. INR 1.6 (goal range: 2.0-3.0). Patient reports: Taking warfarin dosing as documented. Missed or extra doses of warfarin: No Changes to medications: No Changes to lifestyle (diet / alcohol / smoking / activity): No Recent emergency department visit / hospitalization / health changes / new contraindication to current anticoagulant: No Signs/symptoms of bruising/bleeding or clotting or any intolerable adverse events: No Upcoming procedures: No Anticoagulant prescription needed: No Seen referring provider in the last year Duration of therapy reviewed Assessment: INR remains subtherapeutic. We will increase weekly dose 15%. Patient reports she can no longer afford Jardiance and inquires about alternatives for HF. Discussed her income and she would qualify for Farxiga PAP. Application printed and encouraged patient to speak with her inside parts sales about changing to Farxiga. Plan: Patient instructed to increase to warfarin 3.75 mg MF and 2.5 mg AOD. Check INR in 1 week(s). Patient verbalizes understanding of anticoagulant dosing instructions and information discussed. Dosing regimen, counseling, and follow-up appointment were provided to the patient. Patient reminded to call with questions or any medication changes. Patient instructed to seek medical attention if anymajor bleeding/bleeding that persists or worsens. Olinda Elena RPH 12/16/23 1449 documented [facility] Narrative No data available for this section [facility] Discharge instructions No data available for this section [facility] InstructionsNot on filedocumented in this encounter [facility] SystemInstructionsNot on filedocumented in this encounter [facility]* Attachments The following attachments cannot be sent through Care Everywhere. * Heart Failure, Adult ([place]) documented in this encounterProMedi[facility] SystemInstructionsNot on file documented in this encounterProMedi[facility] Health SystemInstructionsNot on file documented in this encounterProMedica Health SystemInstructionsNot on file documented in this encounterProMedica Health SystemInstructionsNot on file documented in this encounterProMedica Health SystemInstructionsNot on file documented in this encounterProMedica Health SystemInstructionsNot on file documented in this encounterProMediBooodl Health SystemInstructionsNot on file documented in this encounterProMediBooodl Health SystemInstructionsNot on file documented in this encounterProMarion HospitalBooodl Health SystemProgress note No data available for this section [facility] reason for referral (narrative)* Consultation (Routine) - Authorized Specialty Diagnoses / Procedures Referred By Contac t Referred To Contact Cardiology Diagnoses Sick sinus syndrome (CMS/HCC) Procedures Follow Up In Cardiology [facility]il[facility] [address] [facility] [address], [address] [address] Referral ID Status Reason Start Date Expiration Date V isits Requested Visits Authorized [id number] Authorized 02/21/2023 02/21/2024 1 1 * Cardiovascular (Routine) - Authorized Specialty Diagnoses / Procedures Referred By Jenny t Referred To Contact Diagnoses Sick sinus syndrome (CMS/HCC) Procedures ECG 12 Lead Delilah [facility] [address] [facility] [address], [address] [address] Referral ID Status Reason Start Date Expiration Date V isits Requested Visits Authorized [id number] Authorized 02/21/2023 02/21/2024 1 1 [facility] Work Phone: Reason for visit Narrative* CV Imaging (Routine) - Authorized Specialty Diagnoses / Procedures Referred By Jenny t Referred To Contact Cardiology Diagnoses Dilated cardiomyopathy (Multi) Procedures Transthoracic Echo Complete OR ECHO TTHRC R-T 2D W/WOM-MODE COMPL SPEC&COLR D Yvonne Haas MD [address] [facility] [address], [address] [address] Phone: tel: fax: Referral ID Status Reason Start Date Expiration Date Visits Requested Visits Authorized [id number] Authorized Perform Procedure 12/13/2023 12/12/2024 1 1 [facility] Work Phone: Summary Purpose Family History No Family History Records FoundUnknown Family Member Name Dates Details Family history of diabetes m ellitus: Father(V18.0, Z83.3) Status:Active Family history of myocardial infarction: Father(V17.3, Z82.49) Status:Active Family history of congenital heart disease: Mother(V19.5, Z82.79) Status:Active Family history of depression : Sister(V17.0, Z81.8) Status:Active Family history of hypertensi on: Father, Brother, Sister, Mother(V17.49, Z82.49) Status:Active Family history of coronary a rtery disease: Mother(V17.3, Z82.49) Status:Active Family history of malignant neoplasm of colon: Mother(V16.0, Z80.0) Status:Active TIA (transient ischemic shelton ck): Mother Status:Active Family history of malignant neoplasm of uterus: Sister(V16.49, Z80.49) Status:Active Unknown Family Member Name Dates Details Family history of diabetes m ellitus: Father(V18.0, Z83.3) Status:Active Family history of myocardial infarction: Father(V17.3, Z82.49) Status:Active Family history of congenital heart disease: Mother(V19.5, Z82.79) Status:Active Family history of depression : Sister(V17.0, Z81.8) Status:Active Family history of hypertensi on: Father, Brother, Sister, Mother(V17.49, Z82.49) Status:Active Family history of coronary a rtery disease: Mother(V17.3, Z82.49) Status:Active Family history of malignant neoplasm of colon: Mother(V16.0, Z80.0) Status:Active TIA (transient ischemic shelton ck): Mother Status:Active Family history of malignant neoplasm of uterus: Sister(V16.49, Z80.49) Status:Active Unknown Family Member Name Dates Details Family history of diabetes m ellitus: Father(V18.0, Z83.3) Status:Active Family history of myocardial infarction: Father(V17.3, Z82.49) Status:Active Family history of congenital heart disease: Mother(V19.5, Z82.79) Status:Active Family history of depression : Sister(V17.0, Z81.8) Status:Active Family history of hypertensi on: Father, Brother, Sister, Mother(V17.49, Z82.49) Status:Active Family history of coronary a rtery disease: Mother(V17.3, Z82.49) Status:Active Family history of malignant neoplasm of colon: Mother(V16.0, Z80.0) Status:Active TIA (transient ischemic shelton ck): Mother Status:Active Family history of malignant neoplasm of uterus: Sister(V16.49, Z80.49) Status:Active Unknown Family Member Name Dates Details Family history of diabetes m ellitus: Father(V18.0, Z83.3) Status:Active Family history of myocardial infarction: Father(V17.3, Z82.49) Status:Active Family history of congenital heart disease: Mother(V19.5, Z82.79) Status:Active Family history of depression : Sister(V17.0, Z81.8) Status:Active Family history of hypertensi on: Father, Brother, Sister, Mother(V17.49, Z82.49) Status:Active Family history of coronary a rtery disease: Mother(V17.3, Z82.49) Status:Active Family history of malignant neoplasm of colon: Mother(V16.0, Z80.0) Status:Active TIA (transient ischemic shelton ck): Mother Status:Active Family history of malignant neoplasm of uterus: Sister(V16.49, Z80.49) Status:Active Unknown Family Member Name Dates Details Family history of diabetes m ellitus: Father(V18.0, Z83.3) Status:Active Family history of myocardial infarction: Father(V17.3, Z82.49) Status:Active Family history of congenital heart disease: Mother(V19.5, Z82.79) Status:Active Family history of depression : Sister(V17.0, Z81.8) Status:Active Family history of hypertensi on: Father, Brother, Sister, Mother(V17.49, Z82.49) Status:Active Family history of coronary a rtery disease: Mother(V17.3, Z82.49) Status:Active Family history of malignant neoplasm of colon: Mother(V16.0, Z80.0) Status:Active TIA (transient ischemic shelton ck): Mother Status:Active Family history of malignant neoplasm of uterus: Sister(V16.49, Z80.49) Status:Active Unknown Family Member Name Dates Details Family history of diabetes m ellitus: Father(V18.0, Z83.3) Status:Active Family history of myocardial infarction: Father(V17.3, Z82.49) Status:Active Family history of congenital heart disease: Mother(V19.5, Z82.79) Status:Active Family history of depression : Sister(V17.0, Z81.8) Status:Active Family history of hypertensi on: Father, Brother, Sister, Mother(V17.49, Z82.49) Status:Active Family history of coronary a rtery disease: Mother(V17.3, Z82.49) Status:Active Family history of malignant neoplasm of colon: Mother(V16.0, Z80.0) Status:Active TIA (transient ischemic shelton ck): Mother Status:Active Family history of malignant neoplasm of uterus: Sister(V16.49, Z80.49) Status:Active Unknown Family Member Name Dates Details Family history of diabetes m ellitus: Father(V18.0, Z83.3) Status:Active Family history of myocardial infarction: Father(V17.3, Z82.49) Status:Active Family history of congenital heart disease: Mother(V19.5, Z82.79) Status:Active Family history of depression : Sister(V17.0, Z81.8) Status:Active Family history of hypertensi on: Father, Brother, Sister, Mother(V17.49, Z82.49) Status:Active Family history of coronary a rtery disease: Mother(V17.3, Z82.49) Status:Active Family history of malignant neoplasm of colon: Mother(V16.0, Z80.0) Status:Active TIA (transient ischemic shelton ck): Mother Status:Active Family history of malignant neoplasm of uterus: Sister(V16.49, Z80.49) Status:Active Unknown Family Member Name Dates Details Family history of diabetes m ellitus: Father(V18.0, Z83.3) Status:Active Family history of myocardial infarction: Father(V17.3, Z82.49) Status:Active Family history of congenital heart disease: Mother(V19.5, Z82.79) Status:Active Family history of depression : Sister(V17.0, Z81.8) Status:Active Family history of hypertensi on: Father, Brother, Sister, Mother(V17.49, Z82.49) Status:Active Family history of coronary a rtery disease: Mother(V17.3, Z82.49) Status:Active Family history of malignant neoplasm of colon: Mother(V16.0, Z80.0) Status:Active TIA (transient ischemic shelton ck): Mother Status:Active Family history of malignant neoplasm of uterus: Sister(V16.49, Z80.49) Status:Active Unknown Family Member Name Dates Details Family history of diabetes m ellitus: Father(V18.0, Z83.3) Status:Active Family history of myocardial infarction: Father(V17.3, Z82.49) Status:Active Family history of congenital heart disease: Mother(V19.5, Z82.79) Status:Active Family history of depression : Sister(V17.0, Z81.8) Status:Active Family history of hypertensi on: Father, Brother, Sister, Mother(V17.49, Z82.49) Status:Active Family history of coronary a rtery disease: Mother(V17.3, Z82.49) Status:Active Family history of malignant neoplasm of colon: Mother(V16.0, Z80.0) Status:Active TIA (transient ischemic shleton ck): Mother Status:Active Family history of malignant neoplasm of uterus: Sister(V16.49, Z80.49) Status:Active Unknown Family Member Name Dates Details Family history of diabetes m ellitus: Father(V18.0, Z83.3) Status:Active Family history of myocardial infarction: Father(V17.3, Z82.49) Status:Active Family history of congenital heart disease: Mother(V19.5, Z82.79) Status:Active Family history of depression : Sister(V17.0, Z81.8) Status:Active Family history of hypertensi on: Father, Brother, Sister, Mother(V17.49, Z82.49) Status:Active Family history of coronary a rtery disease: Mother(V17.3, Z82.49) Status:Active Family history of malignant neoplasm of colon: Mother(V16.0, Z80.0) Status:Active TIA (transient ischemic shelton ck): Mother Status:Active Family history of malignant neoplasm of uterus: Sister(V16.49, Z80.49) Status:Active Unknown Family Member Name Dates Details Family history of diabetes m ellitus: Father(V18.0, Z83.3) Status:Active Family history of myocardial infarction: Father(V17.3, Z82.49) Status:Active Family history of congenital heart disease: Mother(V19.5, Z82.79) Status:Active Family history of depression : Sister(V17.0, Z81.8) Status:Active Family history of hypertensi on: Father, Brother, Sister, Mother(V17.49, Z82.49) Status:Active Family history of coronary a rtery disease: Mother(V17.3, Z82.49) Status:Active Family history of malignant neoplasm of colon: Mother(V16.0, Z80.0) Status:Active TIA (transient ischemic shelton ck): Mother Status:Active Family history of malignant neoplasm of uterus: Sister(V16.49, Z80.49) Status:Active Unknown Family Member Name Dates Details Family history of diabetes m ellitus: Father(V18.0, Z83.3) Status:Active Family history of myocardial infarction: Father(V17.3, Z82.49) Status:Active Family history of congenital heart disease: Mother(V19.5, Z82.79) Status:Active Family history of depression : Sister(V17.0, Z81.8) Status:Active Family history of hypertensi on: Father, Brother, Sister, Mother(V17.49, Z82.49) Status:Active Family history of coronary a rtery disease: Mother(V17.3, Z82.49) Status:Active Family history of malignant neoplasm of colon: Mother(V16.0, Z80.0) Status:Active TIA (transient ischemic shelton ck): Mother Status:Active Family history of malignant neoplasm of uterus: Sister(V16.49, Z80.49) Status:Active Unknown Family Member Name Dates Details Family history of diabetes m ellitus: Father(V18.0, Z83.3) Status:Active Family history of myocardial infarction: Father(V17.3, Z82.49) Status:Active Family history of congenital heart disease: Mother(V19.5, Z82.79) Status:Active Family history of depression : Sister(V17.0, Z81.8) Status:Active Family history of hypertensi on: Father, Brother, Sister, Mother(V17.49, Z82.49) Status:Active Family history of coronary a rtery disease: Mother(V17.3, Z82.49) Status:Active Family history of malignant neoplasm of colon: Mother(V16.0, Z80.0) Status:Active TIA (transient ischemic shelton ck): Mother Status:Active Family history of malignant neoplasm of uterus: Sister(V16.49, Z80.49) Status:Active Unknown Family Member Name Dates Details Family history of diabetes m ellitus: Father(V18.0, Z83.3) Status:Active Family history of myocardial infarction: Father(V17.3, Z82.49) Status:Active Family history of congenital heart disease: Mother(V19.5, Z82.79) Status:Active Family history of depression : Sister(V17.0, Z81.8) Status:Active Family history of hypertensi on: Father, Brother, Sister, Mother(V17.49, Z82.49) Status:Active Family history of coronary a rtery disease: Mother(V17.3, Z82.49) Status:Active Family history of malignant neoplasm of colon: Mother(V16.0, Z80.0) Status:Active TIA (transient ischemic shelton ck): Mother Status:Active Family history of malignant neoplasm of uterus: Sister(V16.49, Z80.49) Status:Active Unknown Family Member Name Dates Details Family history of coronary a rtery disease: Mother(V17.3, Z82.49) Status:Active Family history of diabetes m ellitus: Father(V18.0, Z83.3) Status:Active Family history of myocardial infarction: Father(V17.3, Z82.49) Status:Active Family history of congenital heart disease: Mother(V19.5, Z82.79) Status:Active Family history of depression : Sister(V17.0, Z81.8) Status:Active Family history of hypertensi on: Father, Brother, Sister, Mother(V17.49, Z82.49) Status:Active Family history of malignant neoplasm of colon: Mother(V16.0, Z80.0) Status:Active TIA (transient ischemic shelton ck): Mother Status:Active Family history of malignant neoplasm of uterus: Sister(V16.49, Z80.49) Status:Active Unknown Family Member Name Dates Details Family history of diabetes m ellitus: Father(V18.0, Z83.3) Status:Active Family history of myocardial infarction: Father(V17.3, Z82.49) Status:Active Family history of congenital heart disease: Mother(V19.5, Z82.79) Status:Active Family history of depression : Sister(V17.0, Z81.8) Status:Active Family history of hypertensi on: Father, Brother, Sister, Mother(V17.49, Z82.49) Status:Active Family history of coronary a rtery disease: Mother(V17.3, Z82.49) Status:Active Family history of malignant neoplasm of colon: Mother(V16.0, Z80.0) Status:Active TIA (transient ischemic shelton ck): Mother Status:Active Family history of malignant neoplasm of uterus: Sister(V16.49, Z80.49) Status:Active Unknown Family Member Name Dates Details Family history of diabetes m ellitus: Father(V18.0, Z83.3) Status:Active Family history of myocardial infarction: Father(V17.3, Z82.49) Status:Active Family history of congenital heart disease: Mother(V19.5, Z82.79) Status:Active Family history of depression : Sister(V17.0, Z81.8) Status:Active Family history of hypertensi on: Father, Brother, Sister, Mother(V17.49, Z82.49) Status:Active Family history of coronary a rtery disease: Mother(V17.3, Z82.49) Status:Active Family history of malignant neoplasm of uterus: Sister(V16.49, Z80.49) Status:Active TIA (transient ischemic shelton ck): Mother Status:Active Family history of malignant neoplasm of colon: Mother(V16.0, Z80.0) Status:Active Advance Directives No Advanced Directives Records Found Advance Directive Response Recorded Date/ Time Advance Directives No July 19 8:17am Advance Directive Response Recorded Date/ Time Advance Directives No July 19 9:17am Date Activated Date Inactivated Comments 03/03/2019 4:41 PM 03/05/2019 6:45 PM Date Activated Date Inactivated Comments 02/08/2019 1:57 PM 02/11/2019 4:49 PM Date Activated Date Inactivated Comments 02/02/2019 12:57 PM 02/03/2019 7:23 PM Date Activated Date Inactivated Comments 02/01/2019 3:40 PM 02/02/2019 12:57 PM Latest Code Status on File Code Status Date Activated Date Inactivated Comments Full Code 03/03/2019 4:41 PM 03/05/2019 6:45 PM Code Status History Code Status Date Activated Date Inactivated Comments Full Code 02/08/2019 1:57 PM 02/11/2019 4:49 PM Full Code 02/02/2019 12:57 PM 02/03/2019 7:23 PM Full Code 02/01/2019 3:40 PM 02/02/2019 12:57 PM Chief Complaint * No problems * EDUARDO HOWARD is being seen for abnormal echo. * Last evaluated in clinic Dr. Jones July 2021. * F/U Echo LVEF 30-35%; presents today to optimize therapy. * Her flecainide was stopped last week after Dr. Jones reviewed echo; she has been off flecainide 6days. * ECG in office today NSR, QTc 432. * No pulmonary history (had PE Feb 1999) * Overall 'feels fine' but does 'get winded easily' (years) * Ambulating in from [place] (due to mask had difficulty) * Uses 3 pillows (orthopnea 'difficult to breath' when flat). No PND * No prior VINCENT testing ('its a made up disease') * Daily activity: sedentary and likes to read * HLD: PCP has annual labs, no prior treatment * No diabetes * PAF: Initial diagnosis in setting nephrolithiasis and additional occurrence with cholecystitis Patient here for EKG ordered by Delilah Flores NP due to Paroxysmal atrial fibrillation. Delilah Flores NP in suite.At last OV, Amiodarone start, flecainide stop. Medications updated by list. No cardiac complaints. EKG reviewed by Lashay Delarosa RN prior to discharge. To Dr. Jose Martin Jones MD for review.* Testing and medication changes: 'feeling better, breathing is better' * EDUARDO HOWARD is being seen for cardiomyopathy, hypertension and a medication change. * Last evaluated in clinic by myself Sep 2021. At that time started aldactone and amiodarone. * Subsequent MPI no ischemia, LVEF 48%. * Repeat K+ 4.3, Cr 1.27. * She has been compliant with changes and presents today reporting 'one of the medicines are working,my breathing is much easier'. * She ambulated in from [place] without complaints. * Prior SANCHEZ with significant improvement * Very rare POH * No dizziness, near- syncope * Recent testing reviewed. * ECG in office SB/PAC. Denies fatigue, dizziness. * BP borderline and hesitant to reduce lopressor without more objective evidence. * Will arrange baseline amiodarone surveillance * Testing and medication changes: 'feeling better, breathing is better' * EDUARDO HOWARD is being seen for cardiomyopathy, hypertension and a medication change. * Last evaluated in clinic by myself Sep 2021. At that time started aldactone and amiodarone. * Subsequent MPI no ischemia, LVEF 48%. * Repeat K+ 4.3, Cr 1.27. * She has been compliant with changes and presents today reporting 'one of the medicines are working,my breathing is much easier'. * She ambulated in from [place] without complaints. * Prior SANCHEZ with significant improvement * Very rare POH * No dizziness, near- syncope * Recent testing reviewed. * ECG in office SB/PAC. Denies fatigue, dizziness. * BP borderline (138/86) and hesitant to reduce lopressor without more objective evidence. * Will arrange baseline amiodarone surveillance * Overall, she reports significant improvement in functional capacity with GDMT and maintenance of NSR. Amiodarone Order sent to [facility] for testing due ARIEL - NicADRIANNA HOWARD is being seen for a 3 month follow-up of.Amiodarone Order sent to [facility] for testing due in April Chief Complaint and Reason for Visit Chief Complaint i48.0 z79.899 Chief Complaint I42.9;Z79.899;I49.5 Chief Complaint I42.9;Z79.899;I49.5 i48.0 z79.899 i48.0 z79.899 Chief Complaint weakness,trouble fabricio athing Reason for Referral Specialty Diagnoses / Procedures Referred By Jenny t Referred To Contact Diagnoses 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 use Procedures ECG 12 Lead Delilah Turner APRNHOT HEADER OPERATOR [address] [facility] 2, Alex [address] [place] [address] Referral ID Status Reason Start Date Expiration Date V isits Requested Visits Authorized [id number] Authorized 03/01/2023 02/29/2024 1 1 Specialty Diagnoses / Procedures Referred By Contac t Referred To Contact Radiology Diagnoses Other cardiomyopathy (CMS/HCC) Paroxysmal atrial fibrillation (CMS/HCC) Essential hypertension, benign Abnormal electrocardiogram (ECG) (EKG) Procedures Nuclear Stress Test CHG MYOCARDIAL SPECT MULTIPLE STUDIES CHG MYOCARDIAL SPECT SINGLE STUDY AT REST OR STRESS Delilah Turner ELECTROSTATIC POWDER COATING TECHNICIANNASHO[facility] [address] [facility] 2, Alex [address] [place] [id number] Referral ID Status Reason Start Date Expiration Date V isits Requested Visits Authorized [id number] Pending Review 03/01/2023 02/29/2024 5 5 Specialty Diagnoses / Procedures Referred By Contac t Referred To Contact Cardiology Diagnoses Sick sinus syndrome (CMS/HCC) Paroxysmal atrial fibrillation (CMS/HCC) Procedures Holter Or Event Community Coordinator [employer] Delilah Turner, ELECTROSTATIC POWDER COATING TECHNICIANHOT HEADER OPERATOR [address], Alex [address] [place] [id number] Referral ID Status Reason Start Date Expiration Date V isits Requested Visits Authorized [id number] Pending Review 03/01/2023 02/29/2024 1 1 Specialty Diagnoses / Procedures Referred By Contac t Referred To Contact Cardiology Diagnoses Paroxysmal atrial fibrillation (CMS/HCC) Procedures Holter Or Event Community Coordinator [employer] Delilah Turner ELECTROSTATIC POWDER COATING TECHNICIANHOT HEADER OPERATOR [address], Alex [address] [place] [id number] Referral ID Status Reason Start Date Expiration Date V isits Requested Visits Authorized [id number] Pending Review 01/17/2023 01/17/2024 1 1 Specialty Diagnoses / Procedures Referred By Contac t Referred To Contact Cardiology Diagnoses Cardiomyopathy, unspecified type (CMS/HCC) Procedures Follow Up In Cardiology Delilah Turner ELECTROSTATIC POWDER COATING TECHNICIANHOT HEADER OPERATOR [address], [address] [place] [address] Referral ID Status Reason Start Date Expiration Date V isits Requested Visits Authorized [id number] Authorized 01/17/2023 01/17/2024 1 1 Specialty Diagnoses / Procedures Referred By Contac t Referred To Contact Diagnoses Paroxysmal atrial fibrillation (CMS/HCC) 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 use Procedures ECG 12 Lead Marilu Turnerfabiola Finley, 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 [address] [facility] 2, [place] [id number] Referral ID Status Reason Start Date Expiration Date V isits Requested Visits Authorized [id number] Pending Review 01/17/2023 01/17/2024 1 1 Specialty Diagnoses / Procedures Referred By Contac t Referred To Contact Cardiology Diagnoses Cardiomyopathy, unspecified type (CMS/HCC) Abnormal electrocardiogram (ECG) (EKG) Procedures Transthoracic Echo (TTE) Complete OR ECHO TRANSTHORC R-T 2D W/WO M-MODE REC F-UP/LMTD OR DOP ECHOCARD COLOR FLOW VELOCITY MAPPING OR DOP ECHOCARD PULSE WAVE W/SPECTRAL F-UP/LMTD STD Marilu Turnerfabiola Finley, 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 [address] [facility] 2, [place] [id number] Referral ID Status Reason Start Date Expiration Date Visits Requested Visits Authorized [id number] Pending Review Perform Procedure 01/17/2024 1 1 Additional Source Comments INFORMATION SOURCE (unrecogn ized section and content) DATE CREATED AUTHOR 12/08/2020 [facility] DATE CREATED AUTHOR AUTHOR'S ORGANIZ ATION 03/13/2021 [facility] DATE CREATED AUTHOR AUTHOR'S ORGANIZ ATION 10/20/2021 [facility] DATE CREATED AUTHOR AUTHOR'S ORGANIZ ATION 01/28/2022 [facility] DATE CREATED AUTHOR AUTHOR'S ORGANIZ ATION 01/28/2022 [employer] DATE CREATED AUTHOR AUTHOR'S ORGANIZ ATION 12/19/2023 [facility] DATE CREATED AUTHOR AUTHOR'S ORGANIZ ATION 02/03/2024 [facility] DATE CREATED AUTHOR AUTHOR'S ORGANIZ ATION 08/10/2024 [facility] DATE CREATED AUTHOR AUTHOR'S ORGANIZ ATION 09/18/2024 [facility] DATE CREATED AUTHOR AUTHOR'S ORGANIZ ATION 09/18/2024 [facility] DATE CREATED AUTHOR AUTHOR'S ORGANIZ ATION 09/21/2024 [facility] DATE CREATED AUTHOR AUTHOR'S ORGANIZ ATION 09/22/2024 [facility] Care Management Specialist Teams (unrecognized sec tion and content) Team Status: Active Member Role Status Dates Andrei Wiseman MD Primary Care Provider Active Team Status: Inactive Member Role Status Dates Andrei Wiseman MD Primary Care Provider Active Jose Martin Jones MD Attending Provider Active Financial Legal Assistant Relationship Specialty Start Date End Date Andrei Wiseman MD [address] [place] [address] PCP - General 02/07/99 Financial Legal Assistant Relationship Specialty Start Date End Date Andrei Wiseman MD [address] [place] [address] PCP - General 02/07/99 Financial Legal Assistant Relationship Specialty Start Date End Date Andrei Wiseman MD [address] [place] [address] PCP - General 02/07/99 Team Status: Inactive Member Role Status Dates Andrei Wiseman MD Primary Care Provider Active Delilah Turner APRN Attending Provider Active Financial Legal Assistant Relationship Specialty Start Date End Date Andrei Wiseman MD [address] [place] [address] PCP - General 02/07/99 Financial Legal Assistant Relationship Specialty Start Date End Date Andrei Wiseman MD [address] [place] [address] PCP - General 02/07/99 Financial Legal Assistant Relationship Specialty Start Date End Date Andrei Wiseman MD [address] [place] [address] PCP General 02/07/99 Financial Legal Assistant Relationship Specialty Start Date End Date Andrei Wiseman MD [address] [place] [address] PCP - General 02/07/99 Team Status: Inactive Member Role Status Dates Andrei Wiseman MD Primary Care Provider Active Start: February 21, 2023 End: February 21, 2023 Delilah Turner APRN Attending Provider Active S tart: February 21, 2023 End: February 21, 2023 Team Status: Inactive Member Role Status Dates Andrei Wiseman MD Primary Care Provider Active Start: March 25, 2023 End: March 25, 2023 Jose Martin Jones MD Attending Provider Active Start: March 25, 2023 End: March 25, 2023 Team Status: Active Member Role Status Dates Andrei Wiseman MD Primary Care Provider Active Start: March 25, 2023 Jose Martin Jones MD Other Provider Active Start: March 25, 2023 Lino Gibbons MD Attending Provider Active Start: March 25, 2023 Team Status: Inactive Member Role Status Dates Andrei Wiseman MD Primary Care Provider Active Start: December 01, 2023 End: December 01, 2023 Tami Cardoza DO Emergency Provider Active Sta rt: December 01, 2023 End: December 01, 2023 Sergio Root DO RES Active Sta rt: December 01, 2023 End: December 01, 2023 Financial Legal Assistant Relationship Specialty Start Date End Date Andrei Wiseman MD PCP - General 02/07/99 Delilah Turner APRN-HOT HEADER OPERATOR [address] [facility] 2, Alex [address] [place] [id number] PCP - MSSP ACO Attributed Provider 02/07/23 Financial Legal Assistant Relationship Specialty Start Date End Date Andrei Wiseman MD PCP - General 02/07/99 Delilah Turner, 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 [address] [facility] 2, [address] [address] PCP - MSSP ACO Attributed Provider 02/07/23 Financial Legal Assistant Relationship Specialty Start Date End Date Andrei Wiseman MD [address] [place] [address] PCP - General Family Medicine 07/27/16 Financial Legal Assistant Relationship Specialty Start Date End Date Andrei Wiseman MD [address] [place] [address] PCP - General Family Medicine 07/27/16 Financial Legal Assistant Relationship Specialty Start Date End Date Andrei Wiseman MD [address] [place] [address] PCP - General Family Medicine 07/27/16 Financial Legal Assistant Relationship Specialty Start Date End Date Andrei Wiseman MD [address] [place] [address] PCP - General Family Medicine 07/27/16 Financial Legal Assistant Relationship Specialty Start Date End Date Andrei Wiseman MD [address] [place] [address] PCP - General Family Medicine 07/27/16 Financial Legal Assistant Relationship Specialty Start Date End Date Andrei Wiseman MD [address] [place] [address] PCP - General Family Medicine 07/27/16 Financial Legal Assistant Relationship Specialty Start Date End Date Andrei Wiseman MD [address] [place] [address] PCP - General Family Medicine 07/27/16 Financial Legal Assistant Relationship Specialty Start Date End Date Andrei Wiseman MD [address] Provider retired 05/08/24 [place] [address] PCP - General Family Medicine 07/27/16 Financial Legal Assistant Relationship Specialty Start Date End Date Andrei Wiseman MD [address] Provider retired 05/08/24 [place] [address] PCP - General Family Medicine 07/27/16 Financial Legal Assistant Relationship Specialty Start Date End Date Jerome Quick MD [address] [place] [address] PCP - General Internal Medicine 07/16/24 Financial Legal Assistant Relationship Specialty Start Date End Date Andrei Wiseman MD [address] [place] [address] PCP - General Family Medicine 07/25/24 Financial Legal Assistant Relationship Specialty Start Date End Date Jerome Quick MD [facility] [place] [address] PCP - General Internal Medicine 07/16/24 Financial Legal Assistant Relationship Specialty Start Date End Date Jerome Quick MD [facility] [place] [address] PCP - General Internal Medicine 07/16/24 Financial Legal Assistant Relationship Specialty Start Date End Date Andrei Wiseman MD [address] [place] [id number] PCP - General Family Medicine 07/25/24 Financial Legal Assistant Relationship Specialty Start Date End Date Jerome Quick MD [address] [place] [address] PCP - General Internal Medicine 07/16/24 Financial Legal Assistant Relationship Specialty Start Date End Date Jerome Quick MD [address] [place] [address] PCP - General Internal Medicine 07/16/24 Financial Legal Assistant Relationship Specialty Start Date End Date Jerome Quick MD [address] [place] [address] PCP - General Internal Medicine 07/16/24 Financial Legal Assistant Relationship Specialty Start Date End Date Jerome Quick MD [address] [place] [address] [id number] PCP - General Internal Medicine 07/16/24 Goals (unrecognized section and content) Goals may be documented in a n alternate sectionGoals may be documented in an alternate sectionGoals may be documented in an alternate section No data available for this section No data available for this section No data available for this sectionGoals may be documented in an alternate sectionGoals may be documented in an alternate section No data available for this sectionGoals may be documented in an alternate section No data available for this section Reason for Visit (unrecogniz ed section and content) Reason Comments Follow-up 6 months Specialty Diagnoses / Procedures Referred By Contac t Referred To Contact Diagnoses Paroxysmal atrial fibrillation (CMS/HCC) 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 use Procedures ECG 12 Lead Delilah Turner, 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 [address] [facility] [address], [address] [place] [address] Referral ID Status Reason Start Date Expiration Date V isits Requested Visits Authorized [id number] Pending Review 01/17/2023 01/17/2024 1 1 Specialty Diagnoses / Procedures Referred By Contac t Referred To Contact Cardiology Diagnoses Cardiomyopathy, unspecified type (CMS/HCC) Abnormal electrocardiogram (ECG) (EKG) Procedures Transthoracic Echo (TTE) Complete OR ECHO TRANSTHORC R-T 2D W/WO M-MODE REC F-UP/LMTD OR DOP ECHOCARD COLOR FLOW VELOCITY MAPPING OR DOP ECHOCARD PULSE WAVE W/SPECTRAL F-UP/LMTD STD Delilah Turner Tushar, ELECTROSTATIC POWDER COATING TECHNICIANHOT HEADER OPERATOR [address] [facility] [address], [address] [place] [id number] Referral ID Status Reason Start Date Expiration Date Visits Requested Visits Authorized [id number] Pending Review Perform Procedure 01/17/2024 1 1 Reason Comments Results ECHO Specialty Diagnoses / Procedures Referred By Contac t Referred To Contact Cardiology Diagnoses Cardiomyopathy, unspecified type (CMS/HCC) Procedures Follow Up In Cardiology Marilu Turnerfabiola Finley, 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 [address] [facility] [address], [address] [address] Referral ID Status Reason Start Date Expiration Date V isits Requested Visits Authorized [id number] Authorized 01/17/2023 01/17/2024 1 1 Reason Comments Follow-up Week per Mimi Specialty Diagnoses / Procedures Referred By Contac t Referred To Contact Cardiology Diagnoses Sick sinus syndrome (CMS/HCC) Procedures Follow Up In Cardiology TurnerMarilufabiola Finley, 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 [address] [facility] [address], [address] [place] [id number] Referral ID Status Reason Start Date Expiration Date V isits Requested Visits Authorized [id number] Authorized 02/21/2023 02/21/2024 1 1 Specialty Diagnoses / Procedures Referred By Contac t Referred To Contact Radiology Diagnoses Other cardiomyopathy (CMS/HCC) Paroxysmal atrial fibrillation (CMS/HCC) Essential hypertension, benign Abnormal electrocardiogram (ECG) (EKG) Procedures Nuclear Stress Test CHG MYOCARDIAL SPECT MULTIPLE STUDIES CHG MYOCARDIAL SPECT SINGLE STUDY AT REST OR STRESS Delilah Turner, 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 [address] [facility] [address], [address] [address] Referral ID Status Reason Start Date Expiration Date V isits Requested Visits Authorized [id number] Pending Review 03/01/2023 02/29/2024 5 5 Reason Comments Follow-up 6m Specialty Diagnoses / Procedures Referred By Contac t Referred To Contact Cardiology Diagnoses Dilated cardiomyopathy (Multi) Procedures Follow Up In Cardiology Jose Martin Jones MD McGuinn, William P, MD Retired From Practice Referral ID Status Reason Start Date Expiration Date V isits Requested Visits Authorized [id number] Authorized 05/24/2023 05/23/2024 1 1 Reason Comments Routine Check up Antidepressants and allergy pills not working anymore Reason Comments Med Refill Reason Comments Annual Exam Medicare Wellness Reason Comments Follow-up 6 month bParoxysmal atrial fibrillation (Multi) Specialty Diagnoses / Procedures Referred By Contac t Referred To Contact Cardiology Diagnoses Essential hypertension, benign Procedures Follow Up In Cardiology Yvonne Haas MD [address] [facility] [address], [address] [address] Phone: tel: fax: Yvonne Haas MD [address] [facility] [address], [address] [address] Phone: tel: fax: Referral ID Status Reason Start Date Expiration Date V isits Requested Visits Authorized [id number] Authorized 12/13/2023 12/12/2024 1 1 Reason Comments Nasal Congestion Sore Throat Cough Reason Comments EKG visit Specialty Diagnoses / Procedures Referred By Contac t Referred To Contact Diagnoses 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 use Paroxysmal atrial fibrillation (Multi) Procedures ECG 12 Lead Yvonne Haas MD [address] [place] [address] [address], [address] [address] Phone: tel: fax: Referral ID Status Reason Start Date Expiration Date V isits Requested Visits Authorized [id number] Authorized 07/25/2024 07/25/2025 1 1 Reason Onset Date Comments Vaginitis 08/03/2024 Reason Comments Annual Exam Medicare wellness FOR RECORDS PERTAINING TO PATIENTS WHO ARE OR HAVE BEEN ENROLLED IN A CHEMICAL DEPENDENCY/SUBSTANCEABUSE PROGRAM, SOME INFORMATION MAY BE OMITTED. This clinical summary was aggregated from multiple sources. Caution should be exercised in using it in the provision of clinical care. This summary normalizes information from multiple sources, and as a consequence, information in this document may materially change the coding, format and clinical context of patient data. In addition, data may be omitted in some cases. CLINICAL DECISIONS SHOULD BE BASED ON THE PRIMARY CLINICAL RECORDS. [facility]. provides no warranty or guarantee of the accuracy or completeness of information in this document.
[2024-09-24 15:19] LABS: Anion Gap 10.2; Blood Urea Nitrogen 22.0 mg/dL (7.0-18.0); Calcium 9.0 mg/dL (8.5-10.1); Carbon Dioxide 26.8 mmol/L (21.0-32.0); Chloride 109 mmol/L (98-107); Estimated GFR (African America 44 (>=60 mL/min/1.73m^2); Estimated GFR (Non-African Ame 36 (>=60 mL/min/1.73m^2); Glucose 85 mg/dL (74-106); Potassium 5.0 mmol/L (3.5-5.1); Sodium 141 mmol/L (136-145)
[2024-09-24 15:20] LABS: INR 2.15; Partial Thromboplastin Time 35.0 sec (22.3-36.2); Prothrombin Time 21.1 sec (9.0-11.6)
== END 2024-09-24 14:16 | disposition home or self-care (01) ==
PROVIDERS: PCP Student in an Organized Health Care Education/Training Program; Visit Provider Urology
DX: Z01.810 Encounter for preprocedural cardiovascular examination (principal); Z01.812 Encounter for preprocedural laboratory examination; Z01.818 Encounter for other preprocedural examination; N20.0 Calculus of kidney
CPT/HCPCS: 36415; 71046; 80048; 85025; 85610; 85730; G0463

== ENCOUNTER 2024-10-04 09:28 | Day surgery (SDC) | payer MEDICARE, SELFPAY ==
[2024-09-24 14:54] VITALS: BP 148/89; PULSE 49; TEMP 36.3; O2SAT 95; BMI 34.0
--- OUTSIDE RECORDS SUMMARY | 2024-10-04 09:36 | XMS_ITS | CCD ---
Author Organization [facility] Care Team Providers Care Ash Pit Worker Name Role Phone IVONE, DR FORBES Primary Care Unavailable SALEEM, DR VALADEZ Consulting Unavailable SALEEM, DR VALADEZ Attending Unavailable SALEEM, DR VALADEZ Admitting Unavailable WEST, DR ANDREI Lawson Consulting Unavailable CHRISSALEX Consulting Unavailable DEFRANCE, DR FORBES Primary Care [...] Ms. Wong Referring Unavailable Defrance, Dr. Andrei Bangura Primary Care Unava ilable Defrance, Dr. Andrei Bangura Referring Unava ilable Defrance, Dr. Andrei Bangura Primary Care Unava ilable MCGUINN II, Dr. JOSE MARTIN VALADEZ Attending Unavailable Defrance, Dr. Andrei Bangura Primary Care Unava ilable MCGUINN II, Dr. JOSE MARTIN VALADEZ Referring Unavailable MCGUINN II, Dr. JOSE MARTIN VALADEZ Attending Unavailable MD Andrei Wiseman Primary Care Provider MD Jose Martin Jones Attending Provider Andrei Wiseman Primary Care Unavailab le McGuinn II, Jose Martin Valadez Attending Unav ailable McGuinn II, Jose Martin Valadez Referring Unav ailable McGuinn II, Jose Martin Valadez Attending Unav ailable Defrance, Andrei Bangura Primary Care Unavailab le McGuinn II, Jose Martin Valadez Referring Unav ailable McGuinn II, Jose Martin Valadez Attending Unav ailable McGuinn II, Jose Martin Valadez Referring Unav ailable Defrance, Andrei Bangura Primary Care Unavailab le Turner, KM Norwoodna Attending Unavailable Turner, KM Norwoodna Referring Unavailable Defrance, Andrei Bangura Primary Care Unavailab le Turner, KM Norwoodna Attending Unavailable Turner, KM Norwoodna Referring Unavailable Defrance, Andrei Bangura Primary Care Unavailab le Defrance, Andrei Bangura Primary Care Unavailab le Turner, KM Norwoodna Attending Unavailable Turner, KM Norwoodna Referring Unavailable McGuinn II, Jose Martin Valadez Attending Unav ailable Defsejal, Andrei Bangura Primary Care Unavailab le Defrance, Andrei Bangura Referring Unavailab le MD Andrei Wiseman Primary Care Provider MD Jose Martin Jones Attending Provider MD Andrei Wiseman Primary Care Provider MD Jose Martin Jones Attending Provider ANDREI WISEMAN Primary Care Physician Andrei Wiseman MD Primary Care Provider MD Andrei Wiseman Primary Care Provider [phone] TRUNG Nassar Attending Provider TRUNG Turner Attending Provider MD Jose Martin Jones Attending Provider MD Andrei Wiseman Primary Care Provider [phone] DO Tami Cardoza Emergency Provider Andrei Wiseman MD Primary Care Provider Johnny NINO-Delilah BARBOUR Unavailable Andrei Wiseman MD Primary Care Provider Andrei Wiseman Primary Care Unavailable Yvonne Haas Admitting Unavailable Yvonne aHas Attending Unavailable Ivone, Andrei Primary Care Unavailable Delilah Turner Admitting Unavailable Delilah Turner Attending Unavailable Karen, Jose Martin Valadez Attending Unavail able Defrance, Andrei Primary Care Unavailable Jose Martin Jones Admitting Unavail able Tami Cardoza Admitting Unavailable Tami Cardoza Attending Unavailable Defrance, Andrei Primary Care Unavailable Defrance , Andrei Walker Primary Care Provider Ivone DE LA ROSA, Andrei Walker Primary Care Provider [phone] Jerome Quick MD Primary Care Provider [phone] Andrei Wiseman MD Primary Care Provider IVONE, ANDREI Walker Attending Unavailable DEFRANCE, ANDREI T Referring Unavailable DEFRANCE, ANDREI Aaron Primary Care Unavailable NGOC, JEROME Attending Unavailable NGOC, JEROME Referring Unavailable NGOC, JEROME Primary Care Unavailable NGOC, JEROME Attending Unavailable DEFRANCE, ANDREI Walker Referring Unavailable NGOC, JEROME Primary Care Unavailable Allyson SALEEM Attending Unavailable HARPER, Allyson Montenegro Attending Unavailable Allyson SALEEM Attending Unavailable Allyson SALEEM Admitting Unavailable SERVICE, JOBST Referring Unavailable DEFRANCE, [...] Unavailable DEFRANCE, ANDREI T Primary Care Unavailable MEDICATION MANAGEMENT, [facility] Referr ing Unavailable DEFRANCE, ANDREI T Primary Care Unavailable MEDICATION MANAGEMENT, [facility] Referr ing Unavailable DEFRANCE, ANDREI T Primary Care Unavailable YVONNE HAAS Referring Unavailable DEFRANCE, ANDREI T Primary Care Unavailable YVONNE HAAS Referring Unavailable DEFRANCE, [facility] Primary Care Unavailable MEDICATION MANAGEMENT, [facility] Referr ing Unavailable DEFRANCE, [facility] Primary Care Unavailable MEDICATION MANAGEMENT, [facility] Referr ing Unavailable DEFRANCE, [facility] Primary Care Unavailable DEFRANCE, [facility] Primary Care Unavailable ROJELIO DYE Attending Unavailable MEDICATION MANAGEMENT, [facility] Referr ing Unavailable DEFRANCE, [facility] Primary Care Unavailable MEDICATION MANAGEMENT, [facility] Referr ing Unavailable DEFRANCE, [facility] Primary Care Unavailable MEDICATION MANAGEMENT, [facility] Referr ing Unavailable DEFRANCE, [facility] Primary Care Unavailable MARISOL, MATTHEW P Admitting Unavailable MARISOL, MATTHEW P Attending Unavailable MARISOL, MATTHEW Sena Referring Unavailable DEFRANCE, ANDREI Aaron Primary Care Unavailable MEDICATION MANAGEMENT, [facility] Referr ing Unavailable DEFRANCE, [facility] Primary Care Unavailable MEDICATION MANAGEMENT, [facility] Referr ing Unavailable DEFRANCE, [facility] Primary Care Unavailable MEDICATION MANAGEMENT, [facility] Referr ing Unavailable DEFRANCE, ANDREI Aaron Primary Care Unavailable MEDICATION MANAGEMENT, [facility] Referr ing Unavailable DEFRANCE, [facility] Primary Care Unavailable MEDICATION MANAGEMENT, [facility] Referr ing Unavailable NGOC, JEROME Primary Care Unavailable MEDICATION MANAGEMENT, [facility] Referr ing Unavailable NGOC, JEROME Primary Care Unavailable MEDICATION MANAGEMENT, [facility] Referr ing Unavailable NGOC, JEROME Primary Care Unavailable NGOC, JEROME Referring Unavailable NGOC, JEROME Primary Care Unavailable ALLYSON SALEEM Referring Unavailable NGOC, JEROME Primary Care Unavailable YVONNE HAAS Attending Unavailable DEFRANCE, [facility] Primary [facility] Unavailab JOSE MARTIN Smith Referring Unavailable HAASYVONNE Referring Unavailable DEFRANCE, [facility] Primary [facility] Unavailab le HAASYVONNE Attending Unavailable HAASYVONNE Referring Unavailable DEFRANCE, [facility] Primary [facility] Unavailab le YVONNE HAAS Referring Unavailable DEFRANCE, [facility] Unavailab Allyson Wall Attending Unavailable Defrance Andrei DE LA ROSA Willem Primary [facility] Provider Unavailable YVONNE HAAS Referring Unavailable DEFRANCE, [facility] Unavailab le HAASYVONNE Referring Unavailable DEFRANCE, [facility] Primary [facility] Unavailab le Allergies Allergy Classification Reported Allergen(s) Allergy Type Date of Onset Reaction(s) Facility (1 source) Acetaminophen / HYDROcodone Drug Allergy [facility] Repository (1 source) Misc-Drug Drug allergy (disorder) [facility] (20 sources) Acetaminophen / oxyCODONE; Translations: [Percocet TABS] Drug Allergy 07-31-19 22 Hallucinations [facility] DO Work Phone: (17 sources) house dust Allergy to substance (finding) [facility] DO Work Phone: (17 sources) Animal dander - Cats Allergy to substance (finding) [facility] DO Work Phone: (17 sources) Animal dander - Dogs [facility] to substance (finding) [facility] Work [facility]: (7 sources) narcotic analgesics; Translations: [narcotic analgesics] Drug allergy Moderate (severity modifier) (qualifier value) [facility] (20 sources) house dust allergenic extract; Translations: [HOUSE DUST] Drug Allergy 07-31-19 22 Unknown, Runny nose [facility] Work Phone: (20 sources) Cat Dander; Translations: [CAT DANDER] Allergy to substance 11-27-19 Unknown, Runny nose, Other (See Comments) [facility] (20 sources) Dog Dander; Translations: [DOG DANDER] Allergy to substance 11-27-19 Unknown, Runny nose, Other (See Comments) [facility] Work Phone: (20 sources) Aspirin; Translations: [ASPIRIN] Drug Allergy 10-08-19 [facility] (20 sources) Codeine; Translations: [CODEINE] Drug Allergy 08-26-[address] [facility] (20 sources) Ibuprofen; Translations: [IBUPROFEN] Drug Allergy 10-08-19 [facility] (20 sources) Morphine; Translations: [MORPHINE] Drug Allergy 08-26-19 [facility] (20 sources) Nitrofurantoin; Translations: [NITROFURANTOIN] Drug Allergy 07-31-19 [facility] Work Phone: (20 sources) Animal Dander; Translations: [ANIMAL DANDER] Propensity to adverse reactions to drug 07-31-19 [facility] [employer] [facility] (4 sources) Acetaminophen / oxyCODONE; Translations: [OXYCODONE-ACETA MINOPHEN] Drug Allergy 07-31-19 [facility] Repository Medications Current Medications Medication Drug Class(es) Dates Sig (Normalized) Sig (Original) amiodarone hydrochloride 200 mg oral tablet (20 sources) Antiarrhythmic Start: 09-07-2021 End: 07-25-2024 take 1 tablet by mouth once daily amiodarone (Pacerone) 200 mg tablet Indications: Paroxysmal atrial fibrillation (Multi) Take 1 tablet (200 mg) by mouth once daily. 90 tablet 1 07/25/2024 Active amoxicillin 875 mg / clavulanate 125 mg [...] End: 12-28-2024 take 1 tablet by mouth once daily dapagliflozin propanediol (Farxiga) 10 mg Indications: Other cardiomyopathy Take 1 tablet (10 mg) by mouth once daily. 90 tablet 3 12/29/2023 12/28/2024 Active doxycycline hyclate 100 mg oral capsule (1 source) Tetracycline-class Drug Start: 09-17-2024 take 1 capsule by mouth once daily doxycycline hyclate 100 mg Cap 100 mg = 1 cap(s), Oral, Daily, take one day before procedure and take one day after procedure, # 2 cap(s), Refills(s) 0, Pharmacy: [facility] [id number], 169, cm, 09/17/24 10:36:00 EDT, Height/Length Dosing, 93.1, kg, 09/17/24 10:36:00 EDT, Weight Dosing Start Date: 09/17/24 Status: Ordered Quantity: 2.0 Unit: cap(s) Repeat number: 1 empagliflozin 10 mg oral tablet (20 sources) Sodium-Glucose Cotransporter 2 Inhibitor Start: 02-10-2023 End: 02-10-2024 Jardiance 10 mg oral tablet Refills(s) 0 Start Date: 09/16/23 Status: Ordered Repeat number: 1 ferrous sulfate 324 mg delayed release oral tablet (20 sources) ferrous sulfate 324 mg (65 [...] Start: 02-01-2023 take 1 capsule by mo [facility] in the morning FLUoxetine (PROzac) 20 mg [...] 0 Refills: 0 Ordered: 07-Sep-2021 DO Active losartan potassium 100 mg oral tablet (20 sources) Angiotensin 2 Receptor Andres Start: 07-23-2019 losartan Oral, Daily , Refills(s) 0 Start Date: 07/23/19 Status: Ordered Repeat number: 1 Start: 07-23-2019 losartan Oral, Daily, Refills(s) 0 Start Date: 07/23/19 Status: Ordered Start: 10-02-2015 End: 07-25-2025 take 1 tablet by mouth once daily losartan (Cozaar) 100 mg tablet Indications: Essential hypertension, benign , Cardiomyopathy, unspecified type (Multi) Take 1 tablet (100 mg) by mouth once daily. 90 tablet 3 07/25/2024 07/25/2025 Active magnesium oxide 400 mg oral tablet [...] End: 07-25-2025 take 0.5 tablet by mouth twice daily metoprolol tartrate (Lopressor) 25 mg tablet Indications: Essential hypertension, benign , Paroxysmal atrial fibrillation (Multi) Take 0.5 tablets (12.5 mg) by mouth 2 times a day. 90 tablet 3 07/25/2024 07/25/2025 Active Start: 02-10-2023 End: 02-21-2023 [...] chloride 10 meq extended release oral tablet (16 sources) take 1 tablet by gabby th [...] tab(s), Oral, BID, 180 tab(s), Refill(s) 3, [facility] [id number], 169, cm, 09/17/24 10:36:00 EDT, Height/Length Dosing, [...] tab(s), Oral, BID, 180 tab(s), Refill(s) 3, [facility] [id number], 169, cm, 09/16/23 10:22:00 EDT, Height/Length Dosing, [...] for 30 day(s), 60 tab(s), Refill(s) 11, [facility] [id number], 169, cm, 09/13/22 10:29:00 EDT, Height/Length Dosing, 97, kg, 09/13/22 10:29:00 EDT, Weight Dosing Start Date: 09/13/22 Stop Date: 09/08/23 Status: Ordered take 25 mg by mouth in the morning POTASSIUM CITRATE ORAL Take 25 mg by mouth in the morning and 25 mg before bedtime. Active spironolactone 25 mg oral tablet (20 sources) Aldosterone Antagonist Start: 09-07-2021 End: 07-25-2025 take 1 tablet by mouth once daily spironolactone (Aldactone) 25 mg tablet Indications: Essential hypertension, benign Take 1 tablet (25 mg) by mouth once daily. 90 tablet 3 07/25/2024 07/25/2025 Active warfarin sodium 2.5 mg oral tablet (20 sources) Vitamin K Antagonist Start: 04-30-2024 take 1.5-2.5 tablets by mouth in the evening warfarin (COUMADIN) 1 mg tablet Indications: Atrial fibrillation, unspecified type (CMS-HCC) Take 1.5-2.5 tablets (1.5-2.5 mg total) by mouth in the evening. 225 tablet 1 04/30/2024 Active Start: 12-01-2023 Warfarin Activ e 5 MG PO .2xweek December 01, 2023 12:00am Start: 11-04-2023 End: 04-30-2024 warfarin 2.5 mg Tab 2.5 mg = 1 tab(s), Refills(s) 0 Start Date: 09/17/24 Status: Ordered Repeat number: 1 Start: 10-25-2023 End: 11-04-2023 take 1 tablet by mouth in the evening warfarin (COUMADIN) 5 mg tablet Indications: Atrial fibrillation, unspecified type (CMS-HCC) Take 1 tablet (5 mg total) by mouth in the evening. [facility] 30 tablet 10/25/2023 [...] [Coronary atherosclerosis of unspecified type of vessel, koi or graft] Onset: 09-21-2021 01-17-2023 Chronic E [...] [Long-term (current) use of anticoagulants] Episodic Other and unspecified benign neoplasm (1 source) [...] Chronic Other nutritional; endocrine; and metabolic disorders (19 sources) Body mass index 30+ - obesity; [...] (BMI) 33.0-33.9, adult] Onset: 12-13-2023 Chronic Other screening for suspected conditions (not mental disorders or infectious disease) (18 sources) Echocardiogram abnormal; Translations: [Nonspecific (abnormal) findings on radiological and other examination of other intrathoracic organs] 01-17-2023 Episodic Other upper respiratory disease (1 source) Nasal [...] Resolved: 08-08-2024 01-25-2024 Other aftercare (3 sources) USP (current) use of anticoagulants; 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] Onset: 12-08-2020 Episodic Other aftercare (4 sources) Other prison (current) drug therapy; Translations: [OTH LONG-TERM CURRENT DRUG THERAPY] Onset: 12-08-2020 Episodic Other aftercare (20 sources) Long-term current use of anticoagulant; Translations: [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] Onset: 09-13-2022 Episodic Other aftercare (20 sources) Taking high risk medication; Translations: [Other prison (current) drug therapy] Onset: 11-26-2022 01-17-2023 Episodic Other and unspecified benign neoplasm (20 sources) Acoustic neuroma; Translations: [Benign neoplasm of cranial nerves] Onset: 11-26-2022 Resolved: 02-21-2023 11-26-2022 Chronic Other gastrointestinal disorders (20 sources) History of bypass of stomach; 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] Onset: 07-21-2017 07-21-2017 Episodic Other lower respiratory disease (20 sources) Dyspnea; Translations: [Shortness of breath] Onset: 02-16-2019 11-26-2022 Episodic Pulmonary heart disease (20 sources) Pulmonary embolism; Translations: [Other pulmonary embolism without acute cor pulmonale] Onset: 03-03-2019 11-11-2020 Episodic Residual codes; unclassified (7 sources) Never smoked tobacco; Translations: [Other specified health status] Onset: 05-24-2023 12-13-2023 Episodic Residual codes; unclassified (2 sources) Other specified health status; Translations: [Other specified health status] Onset: 05-24-2023 Episodic Unclassified (17 sources) Never smoked tobacco; Translations: [Never a smoker] Unclassified (20 sources) Onset: 01-17-2023 Resolved: 07-25-2024 01-17-2023 Results Test Name Value Interpretation Reference [...] susceptible interp, R*=Predicted resistant interp EC Antibiotic LOUIE Dilutn LOUIE Interp Ampicillin <=8 S Ampicillin/ [...] Locations R1: This test was performed at: [facility], [address] [place] [address], [id number]- , [place], Normal [facility] Comment on above: Performed By: #### 2 [id number] #### [facility] [address] [place] [id number] Ambulatory Visit Summaryon 0 09-17-2024 Ambulatory Visit Summary Ambulatory Visit Summary EDUARDO HOWARD :1945 Visit Date:09/17/2024 Ambulatory Visit Instructions Your Diagnosis Kidney stones History of UTI Urinary hesitancy Anticoagulant long-term use Tests Performed XR Abdomen 1 View -- Results Pending -- Please visit your patient portal for your results or contact your primary care physician. Your Care Team Attending Physician - Allyson SALEEM MD Primary Care Physician - ANDREI WISEMAN MD [...] gastric bypass (2002), Tubal ligation (1977), Tonsillectomy (1948). Discharge Vitals Temperature (Temporal Artery) 37 ???C Heart Rate (Peripheral) 62 Respiratory Rate 18 Blood Pressure 128/70 Height 169 cm Height 67 in Weight 93.1 kg Weight 205.25 lb BMI 32.6 What to do next You Need to Schedule the Following Appointments Follow Up with HARPER DE LA ROSA, Allyson Montenegro, URL When: Comments: sched cysto/UD Where: [address] [place] [address] [place] [address] Medications What How Much When Instructions Unchanged [...] including vitamins, herbs, eye drops, creams, and vixa-kzt-[id number] medicines. ??? Any problems you or family members have had with anesthetic medicines. ??? Any blood disorders you have. ??? Any surgeries you have had. ??? Any medical conditions you have. ??? Whether you are or may be . What are the risks? Generally, this is a safe procedure. However, problems may occur, including: ??? Infection (more content not included)... Normal [facility] Urology Office/Clinic Noteon 09-17-2024 Urology Office/Clinic Note [...] Local anesthesia. 4. 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 Elevated risk for periop complications. [2] Follow-up With When Contact Information HARPER DE LA ROSA, Allyson Montenegro, URL [address] [place] [address] [place] [address] Additional Instructions: sched cysto/UD Patient Education Cystoscopy Urethral Dilation Dietary Guidelines to Help Prevent Kidney Stones I, Laney Ruelas, personally scribed for Dr. Saleem on 09/17/2024 [...] of kidney (11/13/2020), Cholecystectomy (2018), Cataract surgery (2017), Colonoscopy (2007), Panniculectomy (01/2005), Biopsy of uterine ligament (2002), Colonoscopy (2002), Arianne-en-y gastric bypass (2002), Tubal ligation (1977), Tonsillectomy (1948). Medications amiodarone 200 mg Tab, Oral, Daily FLUoxetine 20 mg Cap, 20 mg= 1 cap(s) Jardiance 10 mg oral tablet Lopressor 25 mg oral tablet, 25 mg= 1 tab(s), Oral, Daily losartan, Oral, Daily Pantoprazole [address] Tab, Oral, Daily potassium CITRATE 10 mEq ER Tab, 10 mEq= 1 tab(s), Oral, BID, 3 refills spironola (more content not included)... Normal [facility] Comment on above: Result Comment: Elec tronically [...] Adhikari MD on 09/17/2024 10:25 AM Normal [facility] CBC WITH AUTO DIFFERENTIALon 09-13-2024 Band form neutrophils/100 WBC (Bld) 1 % Normal [facility] Comment on above: Result Comment: This is an appended report. These results have been appended to a previously preliminary verified report. Performed By: #### C BCA #### [facility] ([facility]) [address] [place] [address] VIR CELLAVISION BASOPHILS ABSOLUTE COUNT (10*3/UL) BY MANUAL COUNT 0.2 10*3/uL Normal 0.0-0.2 [facility] Comment on above: Result Comment: This is an appended report. These results have been appended to a previously preliminary verified report. Performed By: #### C BCA #### [facility] ([facility]) [address] [place] [address] VIR CELLAVISION BASOPHILS RELATIVE PERCENT BY MANUAL COUNT 3 % Normal [facility] Comment on above: Result Comment: This is an appended report. These results have been appended to a previously preliminary verified report. Performed By: #### C BCA #### [facility] ([facility]) [address] [place] [address] VIR CELLAVISION DIFFERENTIAL TYPE MANUAL DIFFERENTIAL Normal [facility] Comment on above: Result Comment: This is an appended report. These results have been appended to a previously preliminary verified report. Performed By: #### C BCA #### [facility] ([facility]) [address] [place] [address] VIR CELLAVISION EOSINOPHILS ABSOLUTE COUNT (10*3/UL) BY MANUAL COUNT 0.3 10*3/uL Normal 0.0-0.4 [facility] Comment on above: Result Comment: This is an appended report. These results have been appended to a previously preliminary verified report. Performed By: #### C BCA #### [facility] ([facility]) [address] [place] [address] VIR CELLAVISION EOSINOPHILS PERCENT BY MANUAL COUNT 5 % Normal [facility] Comment on above: Result Comment: This is an appended report. These results have been appended to a previously preliminary verified report. Performed By: #### C BCA #### [facility] ([facility]) [address] [place] [address] VIR CELLAVISION LYMPHOCYTES ABSOLUTE COUNT (10*3/UL) BY MANUAL COUNT 2.5 10*3/uL Normal 1.0-3.5 [facility] Comment on above: Result Comment: This is an appended report. These results have been appended to a previously preliminary verified report. Performed By: #### C BCA #### [facility] ([facility]) [address] [place] [address] VIR CELLAVISION LYMPHOCYTES RELATIVE PERCENT BY MANUAL COUNT 36 % Normal [facility] Comment on above: Result Comment: This is an appended report. These results have been appended to a previously preliminary verified report. Performed By: #### C BCA #### [facility] ([facility]) [address] [place] [address] VIR CELLAVISION MONOCYTES ABSOLUTE COUNT (10*3/UL) IN BLOOD BY MANUAL COUNT 0.6 10*3/uL Normal 0.0-0.9 [facility] Comment on above: Result Comment: This is an appended report. These results have been appended to a previously preliminary verified report. Performed By: #### C BCA #### [facility] ([facility]) [address] [place] [address] VIR CELLAVISION MONOCYTES RELATIVE PERCENT BY MANUAL COUNT 9 % Normal [facility] Comment on above: Result Comment: This is an appended report. These results have been appended to a previously preliminary verified report. Performed By: #### C BCA #### [facility] ([facility]) [address] [place] [address] VIR CELLAVISION NEUTROPHILS ABSOLUTE COUNT BY MANUAL COUNT 3.3 10*3/uL Normal 1.5-6.6 [facility] Comment on above: Result Comment: This is an appended report. These results have been appended to a previously preliminary verified report. Performed By: #### C BCA #### [facility] ([facility]) [address] [place] [address] VIR CELLAVISION NEUTROPHILS RELATIVE PERCENT BY MANUAL COUNT 48 % Normal [facility] Comment on above: Result Comment: This is an appended report. These results have been appended to a previously preliminary verified report. Performed By: #### C BCA #### [facility] ([facility]) [address] [place] [address] VIR CELLAVISION RBC MORPHOLOGY Normal Normal [facility] Comment on above: Result Comment: This is an appended report. These results have been appended to a previously preliminary verified report. Performed By: #### C BCA #### [facility] ([facility]) [address] [place] [address] VIR Erythrocyte distribution width (RBC) [Ratio] 13.9 % Normal 11.5-15 [facility] Comment on above: Performed By: #### C BCA #### [facility] ([facility]) [address] [place] [address] VIR Hematocrit (Bld) [Volume fraction] 44.7 % Normal 35-47 [facility] Comment on above: Performed By: #### C BCA #### [facility] ([facility]) [address] [place] [address] VIR Hemoglobin (Bld) [Mass/Vol] 14.8 g/dL Normal 11.7-15.5 [facility] Comment on above: Performed By: #### C BCA #### [facility] ([facility]) [address] [place] [address] VIR MCH (RBC) [Entitic mass] 29.2 pg Normal 27-34 [facility] Comment on above: Performed By: #### C BCA #### [facility] ([facility]) [address] [place] [address] VIR MCHC (RBC) [Mass/Vol] 33.2 g/dL Normal 32-36 [facility] Comment on above: Performed By: #### C BCA #### [facility] ([facility]) [address] [place] [address] VIR MCV (RBC) [Entitic vol] 88 fL Normal 80-100 [facility] Comment on above: Performed By: #### C BCA #### [facility] ([facility]) [address] [place] [address] VIR Platelet mean volume (Bld) [Entitic vol] 8.8 fL Normal 7-12 [facility] Comment on above: Performed By: #### C BCA #### [facility] ([facility]) [address] [place] [address] VIR Platelets (Bld) [#/Vol] 198 10*3/uL Normal 150-450 [facility] Comment on above: Performed By: #### C BCA #### [facility] ([facility]) [address] [place] [address] VIR RBC COUNT 5.07 X10E12/L Normal 3.8-5.2 [facility] Comment on above: Performed By: #### C BCA #### [facility] ([facility]) [address] [place] [address] VIR WBC (Bld) [#/Vol] 7.0 10*3/uL Normal 4-11 [facility] Comment on above: Performed By: #### C BCA #### [facility] ([facility]) [address] [place] [address] VIR COMPREHENSIVE METABOLIC PANE Dionicio 09-13-2024 Albumin [Mass/Vol] 3.9 g/dL Normal 3.2-5.3 [facility] Comment on above: Performed By: #### C MP ####[facility] ([facility])[address], [place] [address] VIR ALP [Catalytic activity/Vol] 77 U/L Normal 39-130 [facility] Comment on above: Performed By: #### C MP ####[facility] ([facility])[address], [place] [address] VIR ALT [Catalytic activity/Vol] 22 U/L Normal <=31 [facility] Comment on above: Performed By: #### C MP ####[facility] ([facility])[address], [place] [address] VIR Anion gap [Moles/Vol] 9 mmol/L Normal 5-15 [facility] Comment on above: Performed By: #### C MP ####[facility] ([facility])[address], [place] [address] VIR AST [Catalytic activity/Vol] 28 U/L Normal <=41 [facility] Comment on above: Performed By: #### C MP ####[facility] ([facility])[address], [place] [address] VIR Bilirubin [Mass/Vol] 0.6 mg/dL Normal 0.3-1.2 [facility] Comment on above: Performed By: #### C MP ####[facility] ([facility])[address], [place] [address] VIR Calcium [Mass/Vol] 8.7 mg/dL Normal 8.5-10.5 [facility] Comment on above: Performed By: #### C MP ####[facility] ([facility])[address], [place] [address] VIR Chloride [Moles/Vol] 107 mmol/L Normal 98-109 [facility] Comment on above: Performed By: #### C MP ####[facility] ([facility])[address], [place] [address] VIR CO2 [Moles/Vol] 24 mmol/L Normal 22-32 [facility] Comment on above: Performed By: #### C MP ####[facility] ([facility])[address], [place] [address] VIR Creatinine [Mass/Vol] 1.38 mg/dL High 0.40-1.00 [facility] Comment on above: Result Comment: METH OD TRACEABLE TO IDMS STANDARD Performed By: #### C MP ####[facility] ([facility])[address], [place] [address] VIR GFR/1.73 sq M.predicted among non-blacks MDRD (S/P/Bld) [Vol rate/Area] 39 mL/min/{1.73_m2} Low >=60 [facility] Comment on above: Result Comment: Repo rted eGFR is based on the CKD-EPI 2020 equation that does not use a race coefficient. Performed By: #### C MP ####[facility] ([facility])[address], [place] [address] VIR Glucose [Mass/Vol] 87 mg/dL Normal 65-99 [facility] Comment on above: Performed By: #### C MP ####[facility] ([facility])[address], [place] [address] VIR Potassium [Moles/Vol] 4.8 mmol/L Normal 3.5-5.0 [facility] Comment on above: Performed By: #### C MP ####[facility] ([facility])[address], [place] [address] VIR Protein [Mass/Vol] 6.8 g/dL Normal 6.0-8.0 [facility] Comment on above: Performed By: #### C MP ####[facility] ([facility])[address], [place] [address] VIR Sodium [Moles/Vol] 140 mmol/L Normal 134-146 [facility] Comment on above: Performed By: #### C MP ####[facility] ([facility])[address], [place] [address] VIR Urea nitrogen [Mass/Vol] 23 mg/dL Normal 5-27 [facility] Comment on above: Performed By: #### C MP ####[facility] ([facility])[address], [place] [address] VIR LIPID PROFILEon 09-13-2024 Cholesterol [Mass/Vol] 204 mg/dL High 150-200 [facility] Comment on above: Performed By: #### L IPR #### [facility] ([facility]) [address] [place] [address] VIR Cholesterol in HDL [Mass/Vol] 55 mg/dL Normal >39 [facility] Comment on above: Result Comment: HDL <40 mg/dL - High Risk HDL > or = 40mg/dL- Desirable HDL >60 mg/dL - Negative Risk Performed By: #### L IPR #### [facility] ([facility]) [address] [place] [address] VIR Cholesterol in LDL [Mass/Vol] 120 mg/dL Normal <130 [facility] Comment on above: Result Comment: LDL <100 mg/dL - Desirable LDL >160 mg/dL - High Risk Performed By: #### L IPR #### [facility] ([facility]) [address] [place] [address] VIR CHOLESTEROL:HDL 3.7 Normal 1.0-5.0 [facility] Comment on above: Performed By: #### L IPR #### [facility] ([facility]) [address] [place] [address] VIR Triglyceride [Mass/Vol] 147 mg/dL Normal 27-150 [facility] Comment on above: Performed By: #### L IPR #### [facility] ([facility]) [address] [place] [address] VIR VERY LOW LIPOPROTEIN 29 mg/dL Normal 0-30 [facility] Comment on above: Performed By: #### L IPR #### [facility] ([facility]) [address] [place] [address] VIR TSHon 09-13-2024 TSH 1.59 uIU/mL Normal 0.49-4.67 [facility] Comment on above: Performed By: #### T SH #### [facility] ([facility]) [address] [place] [address] VIR POCT Protime / INRon 09-12- 025 INR Coag (PPP) [Relative time] 1.9 {INR} Abnormal 0.8 - 1.2 [facility] Interpretation and review of laboratory results Abnormal [facility] POCT Protime / INRon 08-15- 025 INR Coag (PPP) [Relative time] 3.1 {INR} Abnormal 0.8 - 1.2 [facility] Interpretation and review of laboratory results Abnormal [facility] ECG 12 Leadon 07-25-2024 ECG revealed normal sinus rhythm, right axis deviation, low voltage QRS complex, abnormal ECG. [facility] Work Phone: POCT Protime / INRon 07-18-2 025 INR Coag (PPP) [Relative time] 2 {INR} Abnormal 0.8 - 1.2 [facility] Interpretation and review of laboratory results Abnormal [facility] POCT Protime / INRon 06-19-2 025 INR Coag (PPP) [Relative time] 1.4 {INR} Abnormal 0.8 - 1.2 [facility] Interpretation and review of laboratory results Abnormal [facility] POCT Protime / INRon 06-07-2 025 INR Coag (PPP) [Relative time] 1.4 {INR} Abnormal 0.8 - 1.2 [facility] Interpretation and review of laboratory results Abnormal [facility] POCT Protime / INRon 05-18-2 025 INR Coag (PPP) [Relative time] 1.9 {INR} Abnormal 0.8 - 1.2 [facility] Interpretation and review of laboratory results Abnormal [facility] POCT Protime / INRon 05-09-2 025 INR Coag (PPP) [Relative time] 2.5 {INR} Abnormal 0.8 - 1.2 [facility] Interpretation and review of laboratory results Abnormal [facility] POCT Protime / INRon 04-30-2 025 INR Coag (PPP) [Relative time] 4.1 {INR} Abnormal 0.8 - 1.2 [facility] Interpretation and review of laboratory results Abnormal [facility] POCT Protime / INRon 04-16- 025 INR Coag (PPP) [Relative time] 3.8 {INR} Abnormal 0.8 - 1.2 [facility] Interpretation and review of laboratory results Abnormal [facility] CT BRAIN WO CONTon 5 CT BRAIN WO CONT CT BRAIN WO [...] Lizarraga MD on 04/09/2024 1:18 AM Normal [facility] XR KNEE RT 3 VWSon XR [...] Lizarraga MD on 04/09/2024 1:22 AM Normal [facility] XR SHOULDER RT MIN 2 VWSon [...] Lizarraga MD on 04/09/2024 1:19 AM Normal [facility] XR WRIST RT MIN 3 VWSon [...] Lizarraga MD on 04/09/2024 1:20 AM Normal [facility] POCT Protime / INRon 03-26- 025 INR Coag (PPP) [Relative time] 2.7 {INR} Abnormal 0.8 - 1.2 [facility] Interpretation and review of laboratory results Abnormal [facility] POCT Protime / INRon 025 INR Coag (PPP) [Relative time] 3.4 {INR} Abnormal 0.8 - 1.2 [facility] Interpretation and review of laboratory results Abnormal [facility] Zoë 02-20-2024 AST [Catalytic activity/Vol] 25 U/L Normal 0-41 [facility] Comment on above: Performed By: #### 1 920-8, BMP #### [facility] ([id number]) [address] [place] [address] BASIC METABOLIC PANLon 02-19 Anion gap [Moles/Vol] 9 mmol/L Normal 5-15 [facility] Comment on above: Performed By: #### 1 920-8, BMP #### [facility] ([id number]) [address] [place] [address] Calcium [Mass/Vol] 9.2 mg/dL Normal 8.5-10.5 [facility] Comment on above: Performed By: #### 1 920-8, BMP #### [facility] ([id number]) [address] [place] [address] Chloride [Moles/Vol] 108 mmol/L Normal 98-109 [facility] Comment on above: Performed By: #### 1 920-8, BMP #### [facility] ([id number]) [address] [place] [address] CO2 [Moles/Vol] 23 mmol/L Normal 22-32 [facility] Comment on above: Performed By: #### 1 920-8, BMP #### [facility] ([id number]) [address] [place] [address] Creatinine [Mass/Vol] 1.35 mg/dL High 0.40-1.00 [facility] Comment on above: Result Comment: METH OD TRACEABLE TO IDMS STANDARD Performed By: #### 1 920-8, BMP #### [facility] ([id number]) [address] [place] [address] GFR/1.73 sq M.predicted among non-blacks MDRD (S/P/Bld) [Vol rate/Area] 40 mL/min/{1.73_m2} Low >59 [facility] Comment on above: Result Comment: Reported eGFR is based on the CKD-EPI 2020 equation that does not use a race coefficient. Performed By: #### 1 920-8, BMP #### [facility] ([id number]) [address] [place] [address] Glucose [Mass/Vol] 84 mg/dL Normal 65-99 [facility] Comment on above: Performed By: #### 1 920-8, BMP #### [facility] ([id number]) [address] [place] [address] Potassium [Moles/Vol] 4.6 mmol/L Normal 3.5-5.0 [facility] Comment on above: Performed By: #### 1 920-8, BMP #### [facility] ([id number]) [address] [place] [address] Sodium [Moles/Vol] 140 mmol/L Normal 134-146 [facility] Comment on above: Performed By: #### 1 920-8, BMP #### [facility] ([id number]) [address] [place] [address] Urea nitrogen [Mass/Vol] 30 mg/dL High 5-27 [facility] Comment on above: Performed By: #### 1 920-8, BMP #### [facility] ([id number]) [address] [place] [address] POCT Protime / INRon 025 INR Coag (PPP) [Relative time] 4.8 {INR} Abnormal 0.8 - 1.2 [facility] Interpretation and review of laboratory results Abnormal [facility] POCT Protime / INRon 02-01- 024 INR Coag (PPP) [Relative time] 3.6 {INR} Abnormal 0.8 - 1.2 [facility] Interpretation and review of laboratory results Abnormal [facility] POCT Protime / INRon 024 INR Coag (PPP) [Relative time] 3.7 {INR} Abnormal 0.8 - 1.2 [facility] Interpretation and review of laboratory results Abnormal [facility] POCT Protime / INRon 024 INR Coag (PPP) [Relative time] 2.5 {INR} Abnormal 0.8 - 1.2 [facility] Interpretation and review of laboratory results Abnormal [facility] POCT Protime / INRon 024 INR Coag (PPP) [Relative time] 2.4 {INR} Abnormal 0.8 - 1.2 [facility] Interpretation and review of laboratory results Abnormal [facility] POCT Protime / INRon 024 INR Coag (PPP) [Relative time] 1.6 {INR} Abnormal 0.8 - 1.2 [facility] Interpretation and review of laboratory results Abnormal [facility] TSH Qnon 12-16-2023 TSH 1.44 uIU/mL Normal 0.49-4.67 [facility] Comment on above: Performed By: #### 3 016-3 #### [facility] ([id number]) [address] [place] [address] TRANSTHORACIC ECHO (TTE) COM PLETEon 12-14-2023 TRANSTHORACIC ECHO (TTE) COMPLETE [facility] [place] [address], [address], [place], [place] [address] TRANSTHORACIC ECHOCARDIOGRAM REPORT Patient Name: [place]UARDO [place] Reading Physician: [id number] Yvonne Haas MD, [facility] Study Date: 12/14/2023 Ordering Provider: [id number] YVONNE HAAS MRN/PID: [id number] Fellow: Nurse: Date of /Age: 7 1945 / 78 years Bond Trader: Taty Allen RDCS, RVT Gender Assigned at F Additional Staff: : Height: 167.64 cm Admit Date: Weight: 94.80 kg Admission Status: BSA / BMI: 2.04 m2 / 33.73 Department Location: [facility] kg/m2 [facility] [place] Blood Pressure: 130 /84 mmHg Study Type: TRANSTHORACIC ECHO (TTE) COMPLETE Diagnosis/ICD: Dilated cardiomyopathy-I42.0 Indication: Paroxysmal Atrial Fibrillation, PVC's, Sick Sinus Syndrome, Mild CAD, HTN, Obesity CPT Codes: Echo Complete w Full Doppler-56448 Study Detail: The following Echo studies were [...] (0.6-0.9m/s) PV Ma (more content not included)... Normal [facility] US Heart Transthoracicon Aortic Valve Area by Continuity of Peak Velocity 1.85 cm2 [facility] Work Phone: Aortic Valve Area by Continuity of VTI 1.74 cm2 [facility] Work Phone: AV mn grad 7 mmHg [facility] Work Phone: AV pk grad 13 mmHg [facility] Work Phone: AV pk kristie 1.77 m/s [facility] Work Phone: LV A4C EF 60.3 [facility] Work Phone: LV EF 35 % [facility] Work Phone: LVIDd 4.48 cm [facility] Work Phone: LVOT diam 2.3 cm [facility] Work Phone: MV avg E/e' ratio 10.5 [facility] Work Phone: MV E/A ratio 0.86 [facility] Work Phone: [address], [address] [place] [address] TRANSTHORACIC ECHOCARDIOGRAM REPORT Patient Name: [facility]UARDO [place] Reading Physician: [id number] Haas MD, [facility] Study Date: 12/14/2023 Ordering Provider: [id number] YVONNE HAAS MRN/PID: [id number] Fellow: Nurse: Date of /Age: 7 1945 / 78 years Bond Trader: Taty Allen RDCS, T Gender Assigned at F Additional Staff: : Height: 167.64 cm Admit Date: Weight: 94.80 kg Admission Status: BSA / BMI: 2.04 m2 / 33.73 Department Location: [facility] kg/m2 [facility] [place] Blood Pressure: 130 /84 mmHg Study Type: TRANSTHORACIC ECHO (TTE) COMPLETE Diagnosis/ICD: Dilated cardiomyopathy-I42.0 Indication: Paroxysmal Atrial Fibrillation, PVC's, Sick Sinus Syndrome, Mild CAD, HTN, Obesity CPT Codes: Echo Complete w Full Doppler-[id number] Study Detail: The following Echo studies were [...] included)... Yvonne Mak M D - 12/14/[address], [address] [place] [address] TRANSTHORACIC ECHOCARDIOGRAM REPORT [facility] [place]elle Physician: [id number] Yvonne Haas MD, [facility] Study Date: 12/14/2023 Ordering Provider: [id number] YVONNE HAAS MRN/PID: [id number] Fellow: Nurse: Date of /Age: 7 1945 / 78 years Bond Trader: Taty Allen RD, T Gender Assigned at F Additional Staff: : Height: 167.64 cm Admit Date: Weight: 94.80 kg Admission Status: BSA / BMI: 2.04 m2 / 33.73 Department Location: [address] Blood Pressure: 130 /84 mmHg Study Type: TRANSTHORACIC ECHO (TTE) COMPLETE Diagnosis/ICD: Dilated cardiomyopathy-I42.0 Indication: Paroxysmal Atrial Fibrillation, PVC's, Sick Sinus Syndrome, Mild CAD, HTN, Obesity CPT Codes: Echo Complete w Full Doppler-[id number] Study Detail: The following Echo studies were [...] AI Half-time: 538 (more content not included)... [facility] Work Phone: [facility] Work Phone: ECG 12 Leadon 12-13-2023 ECG revealed normal sinus rhythm with first-degree AV block, low voltage QRS complex, abnormal ECG CPACS [facility] Work Phone: POCT Protime / INRon 024 INR Coag (PPP) [Relative time] 1.3 {INR} Abnormal 0.8 - 1.2 [facility] Interpretation and review of laboratory results Abnormal [facility] Automated basophil %Ordered By: Tatiana Galvez on 12-01-2023 Basophils/100 WBC (Bld) 1.4 % Normal . [facility] Comment on above: Performed By: #### C BC, BNP, HS TROP, PT, BMP #### [address] Automated basophil countOrde red By: Tatiana Galvez on 12-01-2023 Basophils (Bld) [#/Vol] 0.1 10*3/uL Normal 0.0-0.2 [facility] Comment on above: Result Comment: PERF ORMED BY: [address] [place] [address] PATHOLOGIST JEWELRY CONSULTANT ROWENA LIPSCOMB M.D. Performed By: #### C BC, BNP, HS TROP, PT, BMP #### [address] Automated blood monocyte cou ntOrdered By: Tatiana Galvez on 12-01-2023 Monocytes (Bld) [#/Vol] 0.5 10*3/uL Normal 0.0-0.8 [facility] Comment on above: Performed By: #### C BC, BNP, HS TROP, PT, BMP #### [address] Automated eosinophil %Ordere d By: Tatiana Galvez on 12-01-2023 Eosinophils/100 WBC (Bld) 3.5 % Normal . [facility] Comment on above: Performed By: #### C BC, BNP, HS TROP, PT, BMP #### [facility] [address] [place] [address] Automated eosinophil countOr dered By: Tatiana Galvez on 12-01-2023 Eosinophils (Bld) [#/Vol] 0.3 10*3/uL Normal 0.0-0.45 [facility] Comment on above: Performed By: #### C BC, BNP, HS TROP, PT, BMP #### [address] Automated monocyte %Ordered By: Tatiana Lukashardik on 12-01-2023 Monocytes/100 WBC (Bld) 6.3 % Normal . [facility] Comment on above: Performed By: #### C BC, BNP, HS TROP, PT, BMP #### [address] Automated neutrophil %Ordere d By: Tatiana Galvez on 12-01-2023 Neutrophils/100 WBC (Bld) 60.3 % Normal . [facility] Comment on above: Performed By: #### C BC, BNP, HS TROP, PT, BMP #### [address] BNP ser/plasOrdered By: Zachary Galvez on 12-01-2023 Natriuretic peptide B (Bld) [Mass/Vol] 216.0 pg/mL High 5-100 [facility] Comment on above: Result Comment: PERF ORMED BY: [place] [address] PATHOLOGIST JEWELRY CONSULTANT ROWENA LIPSCOMB M.D. Performed By: #### C BC, BNP, HS TROP, PT, BMP #### [address] Basic Metabolic Panelon 10-2 Creatinine Clr Calc Pharmacy 37.72 Normal [facility] Comment on above: Result Comment: PERF ORMED BY: [place] [address] PATHOLOGIST JEWELRY CONSULTANT ROWENA LIPSCOMB M.D. Performed By: #### C BC, BNP, HS TROP, PT, BMP #### [facility] [address] GFR/1.73 sq M.predicted MDRD (S/P/Bld) [Vol rate/Area] 37.858 mL/min/{1.73_m2} Normal [facility] Comment on above: Performed By: #### C BC, BNP, HS TROP, PT, BMP #### [facility] [address] angio chest PE protocolon 12-01-2023 CT angio chest PE protocol [facility] [place] [address] [place] [address] CT Scan Report Signed Patient: Eduardo Howard MR#: [id number] : 1945 Acct:[id number] Age/Sex: 78 / F ADM Date: 12/01/23 Loc: ER Room: Type: [facility] ER Attending Dr: Copies to: DO Sergio [...] Stephani Merchant M.D.12/01/2023 5:21 PM Dictation Location: [place] [address] Transcribed By: [facility] 12/01/23 172 Dictated By: Stephani Merhcant MD 12/01/231713 Signed By: 12/01/23 172 Normal [facility] Calcium [Mass/volume] in Ser um or PlasmaOrdered By: Tatiana Galvez on 12-01-2023 Calcium [Mass/Vol] 8.9 mg/dL Normal 8.6-10.3 [facility] Comment on above: Performed By: #### C BC, BNP, HS TROP, PT, BMP #### [address] Carbon dioxide, total [Moles /volume] in Serum or PlasmaOrdered By: Tatiana Galvez on 12-01-2023 CO2 [Moles/Vol] 22.3 mmol/L Normal 21.0-31.0 [facility] Comment on above: Performed By: #### C BC, BNP, HS TROP, PT, BMP #### [facility] [address] [place] [address] [place] Chloride [Moles/volume] in S josesito or PlasmaOrdered By: Tatiana Galvez on 12-01-2023 Chloride [Moles/Vol] 107 mmol/L Normal 98-107 [facility] Comment on above: Performed By: #### C BC, BNP, HS TROP, PT, BMP #### [place] [address] [place] Complete Blood Count Auto Di ffon 12-01-2023 Mean Corpuscular HGB Conc 34.1 g/dL Normal 32.0-35.0 [facility] Comment on above: Performed By: #### C BC, BNP, HS TROP, PT, BMP #### [facility] [address] [place] [address] [place] Monocytes/100 WBC (Bld) 22.41 % High 0.00-20.00 [facility] Comment on above: Result Comment: For adults in ED, MDW > 20.0 may be associated with a higher risk of sepsis during the first 12 hrs of hospital admission Performed By: #### C BC, BNP, HS TROP, PT, BMP #### [facility] [address] NRBC% 0.1 /100{WBC} Normal 0-0.5 [facility] Comment on above: Performed By: #### C BC, BNP, HS TROP, PT, BMP #### [address] Creatinine [Mass/volume] in Serum or PlasmaOrdered By: Tatiana Galvez on 12-01-2023 Creatinine [Mass/Vol] 1.42 mg/dL High 0.60-1.20 [facility] Comment on above: Performed By: #### C BC, BNP, HS TROP, PT, BMP #### [address] ECG 12 lead ECGon 12-01-2023 ECG 12 lead ECG [facility] Main [place] [address] [place] [address] Electrocardiograph Report Signed Patient: Eduardo Howard MR#: [id number] : 1945 Acct:[id number] Age/Sex: 78 / F ADM Date: 12/01/23 Loc: ER Room: Type: [facility] ER Attending Dr: Ordering Provider: Tami Cadroza DO Date of Service: 12/01/23 ECG/ECG 12 [...] was found Confirmed by TAMI CARDOZA DO ([id number]) on 12/02/2023 12:57:39 AM Referred By: Electronically Signed By: TAMI CARDOZA DO Transcribed By: MUS Signed By Tami Cardoza DO 12/01 Normal [facility] ECG 12 lead ECG [facility] [place] [address] [place] [address] Electrocardiograph Report Signed Patient: Eduardo Howard MR#: [id number] : 1945 Acct:[id number] Age/Sex: 78 / F ADM Date: 12/01/23 Loc: ER Room: Type: [facility] ER Attending Dr: Ordering Provider: Tatiana Galvez [...] now present Confirmed by TAMI CARDOZA DO ([id number]) on 12/02/2023 12:57:39 AM Referred By: Electronically Signed By: TAMI CARDOZA DO Transcribed By: MUS Signed By Tami Cardoza DO 12/01 Normal [facility] Erythrocyte distribution wid th [Ratio] by Automated countOrdered By: Tatiana Galvez on 12-01-2023 Erythrocyte distribution width (RBC) [Ratio] 13.8 % Normal 11.9-15.3 [facility] Comment on above: Performed By: #### C BC, BNP, HS TROP, PT, BMP #### [facility] [address] [place] [address] [place] Erythrocytes [#/volume] in B lood by Automated countOrdered By: Tatiana Galvez on 12-01-2023 RBC (Bld) [#/Vol] 4.90 10*6/uL Normal 3.60-5.00 [facility] Comment on above: Performed By: #### C BC, BNP, HS TROP, PT, BMP #### [facility] [address] [place] [address] [place] Glucose [Mass/volume] in Ser um or PlasmaOrdered By: Tatiana Galvez on 12-01-2023 Glucose [Mass/Vol] 89 mg/dL Normal 70-100 [facility] Comment on above: ADA recommended refe rence rangeRandom Glucose Reference Range is dependent on time and content of last meal. Glucose of more than 200 mg/dL in a nonstressed, ambulatory subject supports the diagnosis of Diabetes Mellitus. Result Comment: [place] om Glucose Reference Range is dependent on time and content of last meal. Glucose of more than 200 mg/dL in a nonstressed, ambulatory subject supports the diagnosis of Diabetes Mellitus. ADA recommended reference range Performed By: #### C BC, BNP, HS TROP, PT, BMP #### [facility] [address] [place] [address] [place] Hematocrit [Volume Fraction] of Blood by Automated countOrdered By: Tatiana Galvez on 12-01-2023 Hematocrit (Bld) [Volume fraction] 42.8 % Normal 34.0-46.4 [facility] Comment on above: Performed By: #### C BC, BNP, HS TROP, PT, BMP #### [facility] [address] [place] [address] [place] Hemoglobin [Mass/volume] in BloodOrdered By: Tatiana Galvez on 12-01-2023 Hemoglobin (Bld) [Mass/Vol] 14.6 g/dL Normal 11.8-15.4 [facility] Comment on above: Performed By: #### C BC, BNP, HS TROP, PT, BMP #### [facility] [address] [place] [id number] [place] INR in Platelet poor plasma by Coagulation assayOrdered By: Tatiana Galvez on 10-24-2024 INR Coag (PPP) [Relative time] 1.6 {INR} Normal [facility] Comment on above: INR Therapeutic Rang e [...] heart valves: 3 - 4.5 PERFORMED BY: [place] [address] PATHOLOGIST JEWELRY CONSULTANT ROWENA LIPSCOMB M.D. Performed By: #### C BC, BNP, HS TROP, PT, BMP #### [facility] [address] [place] [address] Leukocytes [#/volume] correc henry for nucleated erythrocytes in Blood by Automated counOrdered By: Tatiana Galvez on 12-01-2023 WBC corrected for nucl RBC Auto (Bld) [#/Vol] 7.5 10*3/uL 3.8-11.6 [facility] Leukocytes [#/volume] in Blo od by Automated countOrdered By: Tatiana Galvez on 12-01-2023 WBC (Bld) [#/Vol] 7.5 10*3/uL Normal 3.8-11.6 [facility] Comment on above: Performed By: #### C BC, BNP, HS TROP, PT, BMP #### [facility] [address] [place] [address] [place] Lymphocytes [#/volume] in Bl ood by Automated countOrdered By: Tatiana Galvez on 12-01-2023 Lymphocytes (Bld) [#/Vol] 2.1 10*3/uL Normal 1.00-4.8 [facility] Comment on above: Performed By: #### C BC, BNP, HS TROP, PT, BMP #### [facility] [address] [place] [address] Lymphocytes/100 leukocytes i n Blood by Automated countOrdered By: Tatiana Galvez on 12-01-2023 Lymphocytes/100 WBC (Bld) 28.5 % Normal . [facility] Comment on above: Performed By: #### C BC, BNP, HS TROP, PT, BMP #### [facility] [address] [place] [address] MCH [Entitic mass] by Automa henry countOrdered By: Tatiana Galvez on 12-01-2023 MCH (RBC) [Entitic mass] 29.7 pg Normal 24.7-34.3 [facility] Comment on above: Performed By: #### C BC, BNP, HS TROP, PT, BMP #### [facility] [address] [place] [address] MCHC Auto (RBC) [Mass/Vol]Or dered By: Tatiana Galvez on 12-01-2023 MCHC (RBC) [Mass/Vol] 34.1 g/dL 32.0-35.0 [facility] MCV [Entitic volume] by Auto mated countOrdered By: Tatiana Galvez on 12-01-2023 MCV (RBC) [Entitic vol] 87.2 fL Normal 80-100 [facility] Comment on above: Performed By: #### C BC, BNP, HS TROP, PT, BMP #### [facility] [address] [place] [address] Monocyte distribution width [Entitic volume] in Blood by AutomatedOrdered By: Tatiana Galvez on 12-01-2023 Monocyte distribution width Auto (Bld) [Entitic vol] 22.41 % High 0.00-20.00 [facility] Comment on above: For adults in ED, MD W > 20.0 may be associated with a higher risk of sepsis during the first 12 hrs of hospital admission Neutrophils [#/volume] in Bl ood by Automated countOrdered By: Tatiana Galvez on 10-24-2024 Neutrophils (Bld) [#/Vol] 4.5 10*3/uL Normal 1.8-7.7 [facility] Comment on above: Performed By: #### C BC, BNP, HS TROP, PT, BMP #### [address] No Panel InformationOrdered By: Tatiana Galvez on 12-01-2023 Estimated GFR (CKD-EPI) 37.858 mL/Min [facility] Creatinine Clearance (Chem 37.72 [facility] Nucleated erythrocytes [Pres ence] in Blood by Automated countOrdered By: Tatiana Galvez on 12-01-2023 Nucleated RBC Auto Ql (Bld) 0.1 /100{WBC} 0-0.5 [facility] Platelet mean volume [Entiti c volume] in Blood by Automated countOrdered By: Tatiana Galvez on 12-01-2023 Platelet mean volume (Bld) [Entitic vol] 8.5 fL Normal 6.3-10.7 [facility] Comment on above: Performed By: #### C BC, BNP, HS TROP, PT, BMP #### [address] Platelets [#/volume] in Bloo d by Automated countOrdered By: Tatiana Galvez on 12-01-2023 Platelets (Bld) [#/Vol] 185 10*3/uL Normal 150-450 [facility] Comment on above: Performed By: #### C BC, BNP, HS TROP, PT, BMP #### [facility] [address] [place] [address] Potassium [Moles/volume] in Serum or PlasmaOrdered By: Tatiana Galvez on 12-01-2023 Potassium [Moles/Vol] 4.8 mmol/L Normal 3.5-5.1 [facility] Comment on above: Performed By: #### C BC, BNP, HS TROP, PT, BMP #### [address] Prothrombin time (PT)Ordered By: Tatiana Galvez on 12-01-2023 PT Coag (PPP) [Time] 18.3 s High 9.0-12.9 [facility] Comment on above: A hematocrit value g reater than 55% may lead to inaccurate results in coagulation testing. Patients having hematocrit values >55% require a special collection tube for coagulation studies. Please contact the laboratory at [phone] for redraw instructions. Result Comment: A he matocrit value greater than 55% may lead to inaccurate results in coagulation testing. Patients having hematocrit values >55% require a special collection tube for coagulation studies. Please contact the laboratory at [phone] for redraw instructions. Performed By: #### C BC, BNP, HS TROP, PT, BMP #### [facility] [address] Serum or plasma anion gap de terminationOrdered By: Tatiana Galvez on 12-01-2023 Anion gap [Moles/Vol] 13.5 mmol/L Normal 6.0-15.0 [facility] Comment on above: Performed By: #### C BC, BNP, HS TROP, PT, BMP #### [address] Sodium [Moles/volume] in Ser um or PlasmaOrdered By: Tatiana Galvez on 12-01-2023 Sodium [Moles/Vol] 138 mmol/L Normal 136-145 [facility] Comment on above: Performed By: #### C BC, BNP, HS TROP, PT, BMP #### [address] Troponin I High Sensitivityo n 12-01-2023 Troponin I High Sensitivity 7.2 pg/mL Normal 0.0-15.0 [facility] Comment on above: Result Comment: PERF ORMED BY: [facility] [address] [place] [address] PATHOLOGIST JEWELRY CONSULTANT ROWENA LIPSCOMB M.D. Performed By: #### H S TROP ####[facility] Troponin I High Sensitivity 7.7 pg/mL Normal 0.0-15.0 [facility] Comment on above: Result Comment: PERF ORMED BY: [place] [address] PATHOLOGIST JEWELRY CONSULTANT ROWENA LIPSCOMB M.D. Performed By: #### C BC, BNP, HS TROP, PT, BMP #### [address] Troponin I.cardiac [Mass/vol ume] in Serum or Plasma by Detection limit <= 0.01 ng/Ordered By: Melia Reynaga on 12-01-2023 Troponin I.cardiac DL <= 0.01 ng/mL [Mass/Vol] 7.2 pg/mL 0.0-15.0 [facility] Urea nitrogen [Mass/volume] in Serum or PlasmaOrdered By: Tatiana Galvez on 12-01-2023 Urea nitrogen [Mass/Vol] 26 mg/dL High 08-31 [facility] Comment on above: Performed By: #### C BC, BNP, HS TROP, PT, BMP #### [facility] [address] [place] [address] XR chest 2V*on 12-01-2023 XR chest 2V* [facility] [place] [address] [place] [address] XRay Report Signed Patient: Eduardo Howard MR#: [id number] : 1945 Acct:[id number] Age/Sex: 78 / F ADM Date: 12/01/23 Loc: ER Room: Type: PRE ER Attending Dr: Copies to: Tatiana Galvez APRN TEM, PROVIDER Ordering Provider: Tatiana Galvez APRN Date [...] Andre Álvarez M.D.12/01/2023 2:08 PM Dictation Location: [place] [address] Transcribed By: [facility] 12/01/23 1408 Dictated By: Andre Álvarez DO 12/01/23 1407 Signed By: 12/01/23 1408 Normal [facility] POCT Protime / INRon 11-29-2 024 INR Coag (PPP) [Relative time] 1.4 {INR} Abnormal 0.8 - 1.2 [facility] Interpretation and review of laboratory results Abnormal [facility] POCT Protime / INRon 11-17-2 024 INR Coag (PPP) [Relative time] 1.6 {INR} Abnormal 0.8 - 1.2 [facility] Interpretation and review of laboratory results Abnormal [facility] POCT Protime / INRon 11-10-2 024 INR Coag (PPP) [Relative time] 2.3 {INR} Abnormal 0.8 - 1.2 [facility] Interpretation and review of laboratory results Abnormal [facility] POCT Protime / INRon 11-07-2 024 INR Coag (PPP) [Relative time] 3.1 {INR} Abnormal 0.8 - 1.2 [facility] Interpretation and review of laboratory results Abnormal [facility] POCT Protime / INRon 11-03-2 024 INR Coag (PPP) [Relative time] 4.7 {INR} Abnormal 0.8 - 1.2 [facility] Interpretation and review of laboratory results Abnormal [facility] POCT Protime / INRon 10-30-2 024 INR Coag (PPP) [Relative time] 4.1 {INR} Abnormal 0.8 - 1.2 [facility] Interpretation and review of laboratory results Abnormal [facility] POCT Protime / INRon 10-27-2 024 INR Coag (PPP) [Relative time] 1.4 {INR} Abnormal 0.8 - 1.2 [facility] Interpretation and review of laboratory results Abnormal [facility] Aspartate aminotransferase [ Enzymatic activity/volume] in Serum or PlasmaOrdered By: Jose Martin Jones on 03-25-2023 AST [Catalytic activity/Vol] 21 U/L Normal 13-39 [facility] Comment on above: Performed By: #### T SH3, AST, BMP ####[place] [id number] [facility] Basic Metabolic Panelon 03-10 GFR/1.73 sq M.predicted MDRD (S/P/Bld) [Vol rate/Area] 38.094 mL/min/{1.73_m2} Normal [facility] Comment on above: Performed By: #### T SH3, AST, BMP ####[address] Calcium [Mass/volume] in Ser um or PlasmaOrdered By: Jose Martin Jones on 03-25-2023 Calcium [Mass/Vol] 9.2 mg/dL Normal 8.6-10.3 [facility] Comment on above: Performed By: #### T SH3, AST, BMP ####[place] [id number] [facility] Carbon dioxide, total [Moles /volume] in Serum or PlasmaOrdered By: Jose Martin Jones on 03-25-2023 CO2 [Moles/Vol] 27.7 mmol/L Normal 21.0-31.0 [facility] Comment on above: Performed By: #### T SH3, AST, BMP ####[place] [id number] [place] Chloride [Moles/volume] in S josesito or PlasmaOrdered By: Jose Martin Jones on 03-25-2023 Chloride [Moles/Vol] 108 mmol/L High 98-107 [facility] Comment on above: Performed By: #### T SH3, AST, BMP ####[place] [id number] [facility] Creatinine [Mass/volume] in Serum or PlasmaOrdered By: Jose Martin Jones on 03-25-2023 Creatinine [Mass/Vol] 1.42 mg/dL High 0.60-1.20 [facility] Comment on above: Performed By: #### T NANI AST, BMP ####[place] [address] [address] Glucose [Mass/volume] in Ser um or PlasmaOrdered By: Jose Martin Jones on 03-25-2023 Glucose [Mass/Vol] 96 mg/dL Normal 70-100 [facility] Comment on above: ADA recommended refe rence rangeRandom Glucose Reference Range is dependent on time and content of last meal. Glucose of more than 200 mg/dL in a nonstressed, ambulatory subject supports the diagnosis of Diabetes Mellitus. Result Comment: [place] om Glucose Reference Range is dependent on time and content of last meal. Glucose of more than 200 mg/dL in a nonstressed, ambulatory subject supports the diagnosis of Diabetes Mellitus. ADA recommended reference range Performed By: #### T MALIK CARDOZA BMP ####[address] No Panel InformationOrdered By: Jose Martin Jones on 03-25-2023 Estimated GFR (CKD-EPI) 38.094 mL/Min [facility] Creatinine Clearance (Chem N/A [facility] Potassium [Moles/volume] in Serum or PlasmaOrdered By: Jose Martin Jones on 03-25-2023 Potassium [Moles/Vol] 4.1 mmol/L Normal 3.5-5.1 [facility] Comment on above: Performed By: #### T MALIK CARDOZA BMP ####[address] Serum or plasma anion gap de terminationOrdered By: Jose Martin Jones on 03-25-2023 Anion gap [Moles/Vol] 10.4 mmol/L Normal 6.0-15.0 [facility] Comment on above: Performed By: #### T NANI AST BMP ####[address] Sodium [Moles/volume] in Ser um or PlasmaOrdered By: Jose Martin Jones on 03-25-2023 Sodium [Moles/Vol] 142 mmol/L Normal 136-145 [facility] Comment on above: Performed By: #### T SH3, AST, BMP ####[place] [address] [place] [id number] [facility] Thyrotropin [Units/volume] i n Serum or PlasmaOrdered By: Jose Martin Jones on 03-25-2023 TSH Qn 0.86 m[IU]/L Normal 0.45-5.33 [facility] Comment on above: Result Comment: PERF ORMED BY: [place] [address] PATHOLOGIST JEWELRY CONSULTANT ROWENA LIPSCOMB M.D. Performed By: #### T SH3, AST, BMP ####[place] [address] [address] Urea nitrogen [Mass/volume] in Serum or PlasmaOrdered By: Jose Martin Jones on 03-25-2023 Urea nitrogen [Mass/Vol] 29 mg/dL High 7-25 [facility] Comment on above: Performed By: #### T SH3, AST, BMP ####[place] [address] [address] XR chest 2V*on 03-25-2023 XR chest 2V* [facility] [place] [address] [place] [address] XRay Report Signed Patient: Eduardo Howard MR#: [id number] : 1945 Acct:[id number] Age/Sex: 77 / F ADM Date: 03/25/23 Loc: RT Room: Type: [facility] Attending Dr: Jose Martin Jones MD Copies to: Jose Martin Jones MD Ordering Provider: Jose Martin Jones MD Date of Service: 03/25/23 XR/XR chest 2V*: I48.0,Z79.899 Chest 2 views CLINICAL HISTORY: Long-term medication use for A. fib. COMPARISON: Chest 08/05/2022 FINDINGS: Cardiomegaly is unchanged. Degree of interstitial changes are unchanged. No new consolidation pneumothorax pleural effusion or free air. XR/XR chest 2V* IMPRESSION: NO ACUTE CARDIOPULMONARY ABNORMALITY. Impression dictated by: Betito Hollins Jr., D.O.03/25/2023 3:20 PM Dictation Location: [facility]--12 Transcribed By: [facility] 03/25/23 1520 Dictated By: Betito Hollins Jr, DO 03/25/23 1520 Signed By: 03/25/23 1520 Normal [facility] [place] Heart Perfusion W stress [...] Yvonne Haas 03/14/2023 3:46 PM Dictation workstation: [id number] Interpreted By: Yvonne Dow and Keith Fleming STUDY: MYOCARDIAL PERFUSION STRESS TEST WITH LEXISCAN Performing facility: [facility], [address] [place] [address], [address], [address] Provider: Delilah Turner RN, PHYSIOLOGICAL CHEMIST PCP: Dr. Shelia Wsieman Supervising provider: Nathaly Velez MD INDICATION: Cardiomyopathy A-fib HTN Abnormal EKG; HISTORY: Gender: F; Age: 77 y/o ; Height: HT 167.6 cm cm; Weight: WT 94.802 kg kg. Abnormal EKG; HTN; Arrhythmias; Denies smoking. COMPARISON: Previous nuclear testing completed at [facility]. ACCESSION NUMBER(S): [id number] ORDERING CLINICIAN: DELILAH TURNER TECHNIQUE: ONE DAY [...] PERFUSION STRESS TEST WITH LEXISCAN Performing facility: [facility], [address] [place] [address], [address], [address] Provider: Delilah Turner RN, PHYSIOLOGICAL CHEMIST PCP: Dr. Shelia Wiseman Supervising provider: Nathaly Velez MD INDICATION: Cardiomyopathy A-fib HTN Abnormal EKG; HISTORY: Gender: F; Age: 77 y/o ; Height: HT 167.6 cm cm; Weight: WT 94.802 kg kg. Abnormal EKG; HTN; Arrhythmias; Denies smoking. COMPARISON: Previous nuclear testing completed at [facility]. ACCESSION NUMBER(S): [id number] ORDERING CLINICIAN: DELILAH TURNER TECHNIQUE: ONE DAY [...] Yvonne Haas 03/14/2023 3:46 PM Dictation workstation: [id number] [facility] Work Phone: Radiology Study observation (narrative) [facility] Work Phone: [place] Heart Perfusion W stress and W radionuclide IVOrdered By: Yvonne Haas on 03-14-2023 [facility] Work Phone: Basic Metabolic Panelon 02-07 GFR/1.73 sq M.predicted MDRD (S/P/Bld) [Vol rate/Area] 34.560 mL/min/{1.73_m2} Normal [facility] Comment on above: Performed By: #### T SH3, BMP ####[facility] [place] [id number] [facility] Calcium [Mass/volume] in Ser um or PlasmaOrdered By: Delilah Turner on 02-21-2023 Calcium [Mass/Vol] 9.6 mg/dL Normal 8.6-10.3 [facility] Comment on above: Performed By: #### T SH3, BMP ####[facility] [place] [id number] [facility] Carbon dioxide, total [Moles /volume] in Serum or PlasmaOrdered By: Delilah Turner on 02-21-2023 CO2 [Moles/Vol] 29.9 mmol/L Normal 21.0-31.0 [facility] Comment on above: Performed By: #### T SH3, BMP ####[place] [address] [place] [address] [facility] Chloride [Moles/volume] in S josesito or PlasmaOrdered By: Delilah Turner on 02-21-2023 Chloride [Moles/Vol] 106 mmol/L Normal 98-107 [facility] Comment on above: Performed By: #### T SH3, BMP ####[place] [address] [place] [address] [facility] Creatinine [Mass/volume] in Serum or PlasmaOrdered By: Delilah Turner on 02-21-2023 Creatinine [Mass/Vol] 1.54 mg/dL High 0.60-1.20 [facility] Comment on above: Performed By: #### T SH3, BMP ####[place] [address] [place] [address] [facility] Glucose [Mass/volume] in Ser um or PlasmaOrdered By: Delilah Turner on 02-21-2023 Glucose [Mass/Vol] 79 mg/dL Normal 70-100 [facility] Comment on above: ADA recommended refe rence rangeRandom Glucose Reference Range is dependent on time and content of last meal. Glucose of more than 200 mg/dL in a nonstressed, ambulatory subject supports the diagnosis of Diabetes Mellitus. Result Comment: [place] om Glucose Reference Range is dependent on time and content of last meal. Glucose of more than 200 mg/dL in a nonstressed, ambulatory subject supports the diagnosis of Diabetes Mellitus. ADA recommended reference range Performed By: #### T SH3, BMP ####[facility] [place] [address] [facility] [facility] No Panel InformationOrdered By: Delilah Turner on 02-21-2023 Estimated GFR (CKD-EPI) 34.560 mL/Min [facility] Creatinine Clearance (Chem N/A [facility] Potassium [Moles/volume] in Serum or PlasmaOrdered By: Delilah Turner on 02-21-2023 Potassium [Moles/Vol] 4.9 mmol/L Normal 3.5-5.1 [facility] Comment on above: Performed By: #### T SH3, BMP ####[place] [id number] [place] [id number] [facility] Serum or plasma anion gap de terminationOrdered By: Delilah Turner on 02-21-2023 Anion gap [Moles/Vol] 10.0 mmol/L Normal 6.0-15.0 [facility] [place] Comment on above: Performed By: #### T SH3, BMP ####[place] [id number] [facility] Sodium [Moles/volume] in Ser um or PlasmaOrdered By: Delilah Turner on 02-21-2023 Sodium [Moles/Vol] 141 mmol/L Normal 136-145 [facility] Comment on above: Performed By: #### T SH3, BMP ####[place] [id number] [place] [id number] [facility] Thyrotropin [Units/volume] i n Serum or PlasmaOrdered By: Delilah Turner on 02-21-2023 TSH Qn 1.23 m[IU]/L Normal 0.45-5.33 [facility] Comment on above: Result Comment: PERF ORMED BY: [facility] [address] [place] [id number] PATHOLOGIST JEWELRY CONSULTANT ROWENA LIPSCOMB M.D. Performed By: #### T SH3, BMP ####[place] [id number] [place] [id number] [facility] Urea nitrogen [Mass/volume] in Serum or PlasmaOrdered By: Delilah Turner on 02-21-2023 Urea nitrogen [Mass/Vol] 33 mg/dL High 7-25 [facility] Comment on above: Performed By: #### T SH3, BMP ####[place] [id number] [place] [id number] [facility] Heart TransthoracicOrdere d By: Jose Martin Jones on 01-22-2023 Aortic Valve Area by Continuity of Peak Velocity 2.34 [facility] Work Phone: Aortic Valve Area by Continuity of VTI 2.40 [facility] Work Phone: AV mn grad 4.0 [facility] Work Phone: AV pk grad 8.2 [facility] Work Phone: AV pk kristie 1.43 [facility] Work Phone: LV A4C EF 31.2 [facility] Work Phone: [phone] LVIDd 5.60 [facility] Work Phone: LVOT diam 2.30 [facility] Work Phone: MV avg E/e' ratio 7.90 [facility] Work Phone: MV E/A ratio 1.77 [facility] Work Phone: RVSP 29.8 [facility] Work Phone: [facility] Work Phone: Heart Transthoracicon [address], [place] [address] TRANSTHORACIC ECHOCARDIOGRAM REPORT Patient Name: EDUARDO HOWARD Reading Physician: [id number] Jones MD Study Date: 01/21/2023 Ordering Provider: [id number] DELILAH TURNER MRN/PID: [id number] Fellow: Nurse: Date of /Age: 7 1945 / 77 years Bond Trader: KEENAN Gender: F Additional Staff: Height: 167.64 cm Admit Date: Weight: 97.07 kg Admission Status: BSA: 2.06 m2 Department Location: [facility] Blood Pressure: 140 /84 mmHg Study Type: TRANSTHORACIC ECHO (TTE) COMPLETE Diagnosis/ICD: Cardiomyopathy, unspecified-I42.9; Abnormal electrocardiogram [ECG] [EKG]-R94.31 Indication: Paroxysmal Atrial Fibrillation, Mild CAD, HTN, Shortness of Breath CPT Codes: Echo Complete w Full [id number] Study Detail: The following Echo studies were [...] DEMETRIUSO Jose Martin Jones MD - 01/22/[address], [address], [place] [address] TRANSTHORACIC ECHOCARDIOGRAM REPORT [facility] Physician: [id number] Jose Martin Jones MD Study Date: 01/21/2023 Ordering Provider: [id number] DELILAH TURNER MRN/PID: [id number] Fellow: Nurse: Date of /Age: 7 1945 / 77 years Bond Trader: KEENAN Gender: F Additional Staff: Height: 167.64 cm Admit Date: Weight: 97.07 kg Admission Status: BSA: 2.06 m2 Department Location: [facility] Blood Pressure: 140 /84 mmHg Study Type: TRANSTHORACIC ECHO (TTE) COMPLETE Diagnosis/ICD: Cardiomyopathy, unspecified-I42.9; Abnormal electrocardiogram [ECG] [EKG]-R94.31 Indication: Paroxysmal Atrial Fibrillation, Mild CAD, HTN, Shortness of Breath CPT Codes: Echo Complete w Full [id number] Study Detail: The following Echo studies were [...] mmHg PIEDV: 1.92 m/s PADP: 17.7 mmHg [id number] Jose Martin Jones MD Electronically signed on 01/22/2023 at 4:07:35 PM Final [facility] Work Phone: Alanine aminotransferase [En zymatic activity/volume] in Serum or PlasmaOrdered By: Andrei Wiseman on 08-05-2022 ALT [Catalytic activity/Vol] 28 U/L 7-52 [facility] Albumin [Mass/volume] in Ser um or Plasma by Bromocresol green (BCG) dye binding methoOrdered By: Andrei Wiseman on 08-05-2022 Albumin BCG dye [Mass/Vol] 4.0 g/dL 3.5-5.7 [facility] Alkaline phosphatase [Enzyma tic activity/volume] in Serum or PlasmaOrdered By: Andrei Wiseman on 08-05-2022 ALP [Catalytic activity/Vol] 70 U/L 34-104 [facility] Aspartate aminotransferase [ Enzymatic activity/volume] in Serum or PlasmaOrdered By: Andrei Wiseman on 08-05-2022 AST [Catalytic activity/Vol] 29 U/L 13-39 [facility] Basophils Auto (Bld) [#/Vol] Ordered By: Andrei Wiseman on 08-05-2022 Basophils (Bld) [#/Vol] 0.1 10*3/uL 0.0-0.2 [facility] Basophils/100 WBC Auto (Bld) Ordered By: Andrei Wiseman on 08-05-2022 Basophils/100 WBC (Bld) 1.1 % . [facility] Bilirubin.total [Mass/volume ] in Serum or PlasmaOrdered By: Andrei Wiseman on 08-05-2022 Bilirubin [Mass/Vol] 0.8 mg/dL 0.3-1.0 [facility] Calcium [Mass/volume] in Ser um or PlasmaOrdered By: Andrei Wiseman on 08-05-2022 Calcium [Mass/Vol] 8.7 mg/dL 8.6-10.3 [facility] Carbon dioxide, total [Moles /volume] in Serum or PlasmaOrdered By: Andrei Wiseman on 08-05-2022 CO2 [Moles/Vol] 26.5 mmol/L 21.0-31.0 [facility] Chloride [Moles/volume] in S josesito or PlasmaOrdered By: Andrei Wiseman on 08-05-2022 Chloride [Moles/Vol] 109 mmol/L 98-107 [facility] Cholesterol [Mass/volume] in Serum or PlasmaOrdered By: Andrei Wiseman on 08-05-2022 Cholesterol [Mass/Vol] 159 mg/dL 140-200 [facility] [place] Comment on above: Chol less than 200 m g/dl low riskChol 201-239 mg/dl borderline riskChol 240 mg/dl and greater high risk Cholesterol in LDL Calc [Mas s/Vol]Ordered By: Andrei Wiseman on 08-05-2022 Cholesterol in LDL [Mass/Vol] 87 mg/dL 0-100 [facility] Comment on above: LDL ATP III CLASSIFI CATIONLDL less than 100 mg/dL OptimalLDL 100-129 mg/dL Near or above optimalLDL 130-159 mg/dL Borderline highLDL 160-189 mg/dL HighLDL greater than 189 mg/dL Very high Cholesterol in VLDL Calc [Ma ss/Vol]Ordered By: Andrei Wiseman on 08-05-2022 Cholesterol in VLDL [Mass/Vol] 22 mg/dL [facility] Creatinine [Mass/volume] in Serum or PlasmaOrdered By: Andrei Wiseman on 08-05-2022 Creatinine [Mass/Vol] 1.55 mg/dL 0.60-1.20 [facility] Eosinophils Auto (Bld) [#/Vo l]Ordered By: Andrei Wiseman on 08-05-2022 Eosinophils (Bld) [#/Vol] 0.4 10*3/uL 0.0-0.45 [facility] Eosinophils/100 WBC Auto (Bl d)Ordered By: Andrei Wiseman on 08-05-2022 Eosinophils/100 WBC (Bld) 6.1 % . [facility] Erythrocyte distribution wid th Auto (RBC) [Ratio]Ordered By: Andrei Wiseman on 08-05-2022 Erythrocyte distribution width (RBC) [Ratio] 14.1 % 11.9-15.3 [facility] Globulin Calc (S) [Mass/Vol] Ordered By: Andrei Wiseman on 08-05-2022 Globulin (S) [Mass/Vol] 2.4 g/dL [facility] Glucose [Mass/volume] in Ser um or PlasmaOrdered By: Andrei Wiseman on 08-05-2022 Glucose [Mass/Vol] 79 mg/dL 70-100 [facility] Comment on above: ADA recommended refe rence rangeRandom Glucose Reference Range is dependent on time and content of last meal. Glucose of more than 200 mg/dL in a nonstressed, ambulatory subject supports the diagnosis of Diabetes Mellitus. Hematocrit Auto (Bld) [Volum e fraction]Ordered By: Andrei Wiseman on 08-05-2022 Hematocrit (Bld) [Volume fraction] 42.1 % 34.0-46.4 [facility] Hemoglobin [Mass/volume] in BloodOrdered By: Andrei Wiseman on 08-05-2022 Hemoglobin (Bld) [Mass/Vol] 13.9 g/dL 11.8-15.4 [facility] Leukocytes [#/volume] correc henry for nucleated erythrocytes in Blood by Automated counOrdered By: Andrei Wiseman on 08-05-2022 WBC corrected for nucl RBC Auto (Bld) [#/Vol] 5.9 10*3/uL 3.8-11.6 [facility] Lymphocytes Auto (Bld) [#/Vo l]Ordered By: Andrei Wiseman on 08-05-2022 Lymphocytes (Bld) [#/Vol] 1.7 10*3/uL 1.00-4.8 [facility] Lymphocytes/100 WBC Auto (Bl d)Ordered By: Andrei Wiseman on 08-05-2022 Lymphocytes/100 WBC (Bld) 28.9 % . [facility] MCH Auto (RBC) [Entitic mass ]Ordered By: Andrei Wiseman on 08-05-2022 MCH (RBC) [Entitic mass] 29.1 pg 24.7-34.3 [facility] MCHC Auto (RBC) [Mass/Vol]Or dered By: Andrei Wiseman on 08-05-2022 MCHC (RBC) [Mass/Vol] 33.1 g/dL 32.0-35.0 [facility] MCV Auto (RBC) [Entitic vol] Ordered By: Andrei Wiseman on 08-05-2022 MCV (RBC) [Entitic vol] 87.8 fL 80-100 [facility] Monocytes Auto (Bld) [#/Vol] Ordered By: Andrei Wiseman on 08-05-2022 Monocytes (Bld) [#/Vol] 0.6 10*3/uL 0.0-0.8 [facility] Monocytes/100 WBC Auto (Bld) Ordered By: Andrei Wiseman on 08-05-2022 Monocytes/100 WBC (Bld) 9.8 % . [facility] Neutrophils Auto (Bld) [#/Vo l]Ordered By: Andrei Wiseman on 08-05-2022 Neutrophils (Bld) [#/Vol] 3.2 10*3/uL 1.8-7.7 [facility] Neutrophils/100 WBC Auto (Bl d)Ordered By: Andrei Wiseman on 08-05-2022 Neutrophils/100 WBC (Bld) 54.1 % . [facility] No Panel InformationOrdered By: Andrei Wiseman on 08-05-2022 Estimated GFR (CKD-EPI) 34.508 mL/Min [facility] Creatinine Clearance (Chem N/A [facility] Nucleated erythrocytes [Pres ence] in Blood by Automated countOrdered By: Andrei Wiseman on 08-05-2022 Nucleated RBC Auto Ql (Bld) 0.1 /100{WBC} 0-0.5 [facility] Platelet mean volume Auto (B ld) [Entitic vol]Ordered By: Andrei Wiseman on 08-05-2022 Platelet mean volume (Bld) [Entitic vol] 8.5 fL 6.3-10.7 [facility] Platelets Auto (Bld) [#/Vol] Ordered By: Andrei Wiseman on 08-05-2022 Platelets (Bld) [#/Vol] 154 10*3/uL 150-450 [facility] Potassium [Moles/volume] in Serum or PlasmaOrdered By: Andrei Wiseman on 08-05-2022 Potassium [Moles/Vol] 4.5 mmol/L 3.5-5.1 [facility] Protein [Mass/volume] in Ser um or PlasmaOrdered By: Andrei Wiseman on 08-05-2022 Protein [Mass/Vol] 6.4 g/dL 6.4-8.9 [facility] RBC Auto (Bld) [#/Vol]Ordere d By: Andrei Wiseman on 08-05-2022 RBC (Bld) [#/Vol] 4.80 10*6/uL 3.60-5.00 [facility] Radiologyon 08-05-2022 XR Chest 2 Views Normal -[facility] DO Work Phone: Serum or plasma albumin/glob ulin mass ratioOrdered By: Andrei Wiseman on 08-05-2022 Albumin/Globulin [Mass ratio] 1.7 {ratio} [facility] Serum or plasma anion gap de terminationOrdered By: Andrei Wiseman on 08-05-2022 Anion gap [Moles/Vol] 11.0 mmol/L 6.0-15.0 [facility] [place] Serum or plasma high density lipoprotein (HDL) cholesterol measurementOrdered By: Andrei Wiseman on 08-05-2022 Cholesterol in HDL [Mass/Vol] 49 mg/dL 23-92 [facility] Comment on above: HDL CHOL ATP-III CLA SSIFICATION Cardiovascular RiskHDL > or equal to 60 mg/dL LOWHDL < 40 mg/dL HIGH Serum or plasma total choles terol/high density lipoprotein (HDL) cholesterol mass ratOrdered By: Andrei Wiseman on 08-05-2022 Cholesterol.total/Chol esterol in HDL [Mass ratio] 3.2 {ratio} <5.0 [facility] Sodium [Moles/volume] in Ser um or PlasmaOrdered By: Andrei Wiseman on 08-05-2022 Sodium [Moles/Vol] 142 mmol/L 136-145 [facility] Thyrotropin [Units/volume] i n Serum or PlasmaOrdered By: Andrei Wiseman on 08-05-2022 TSH Qn 1.66 m[IU]/L 0.45-5.33 [facility] Thyroxine (T4) free [Mass/vo lume] in Serum or PlasmaOrdered By: Andrei Wiseman on 08-05-2022 Free T4 [Mass/Vol] 1.92 ng/dL 0.61-1.12 [facility] Triglyceride [Mass/volume] i n Serum or PlasmaOrdered By: Andrei Wiseman on 08-05-2022 Triglyceride [Mass/Vol] 113 mg/dL 0-149 [facility] Comment on above: TRIG ATP III CLASSIF ICATIONTRIG less than 150 mg/dL NormalTRIG 150-199 mg/dL Borderline highTRIG 200-500 mg/dL High TRIG greater than 500 mg/dL Very highStandard traceable to the Center for Disease Conrtrol and Prevention (CDC) test method. Urea nitrogen [Mass/volume] in Serum or PlasmaOrdered By: Andrei Wiseman on 08-05-2022 Urea nitrogen [Mass/Vol] 26 mg/dL 7- [facility] WBC Auto (Bld) [#/Vol]Ordere d By: Andrei Wiseman on 08-05-2022 WBC (Bld) [#/Vol] 5.9 10*3/uL 3.8-11.6 [facility] Tobacco Screening.on 023 Adult depression screening assessment No [facility] [address] DO Work Phone: Fall risk assessment a) No falls within the last year [facility] 250 DO Work Phone: Tobacco use status CPHS b) No [facility] DO Work Phone: Aspartate aminotransferase [ Enzymatic activity/volume] in Serum or PlasmaOrdered By: Jose Martin Jones on 04-27-2022 AST [Catalytic activity/Vol] 30 U/L 13-39 [facility] Calcium [Mass/volume] in Ser um or PlasmaOrdered By: Jose Martin Jones on 04-27-2022 Calcium [Mass/Vol] 9.5 mg/dL 8.6-10.3 [facility] Carbon dioxide, total [Moles /volume] in Serum or PlasmaOrdered By: Jose Martin Jones on 04-27-2022 CO2 [Moles/Vol] 26.1 mmol/L 21.0-31.0 [facility] Chloride [Moles/volume] in S josesito or PlasmaOrdered By: Jose Martin Jones on 04-27-2022 Chloride [Moles/Vol] 105 mmol/L 98-107 [facility] Creatinine [Mass/volume] in Serum or PlasmaOrdered By: Jose Martin Jones on 04-27-2022 Creatinine [Mass/Vol] 1.68 mg/dL 0.60-1.20 [facility] Glucose [Mass/volume] in Ser um or PlasmaOrdered By: Jose Martin Jones on 04-27-2022 Glucose [Mass/Vol] 93 mg/dL 74-109 [facility] Comment on above: ADA recommended refe rence rangeRandom Glucose Reference Range is dependent on time and content of last meal. Glucose of more than 200 mg/dL in a nonstressed, ambulatory subject supports the diagnosis of Diabetes Mellitus. Laboratory - Chemistry and C hemistry - challengeOrdered By: Jose Martin Jones on 04-27-2022 GFR/1.73 sq M.predicted MDRD (S/P/Bld) [Vol rate/Area] 31.328 mL/min/{1.73_m2} [facility] No Panel InformationOrdered By: Jose Martin Jones on 04-27-2022 Pharmacy Creatinine Clearance (Chem N/A [facility] No Panel Informationon 04-27 30\S\30 Normal 13-39 [facility] [address] DO Work Phone: 31.328\S\31.328 Normal [facility] 250 DO Work Phone: 15.4\S\15.4 above high threshold 6.0-15.0 [facility] 250 DO Work Phone: 9.5\S\9.5 Normal 8.6-10.3 [facility] 250 DO Work Phone: 26.1\S\26.1 Normal 21.0-31.0 [facility] 250 DO Work Phone: 105\S\105 Normal 98-107 [facility] 250 DO Work Phone: 4.5\S\4.5 Normal 3.5-5.1 [facility] 250 DO Work Phone: 142\S\142 Normal 136-145 [facility] 250 DO Work Phone: [phone] 1.68\S\1.68 above high threshold 0.60-1.20 [facility] [address] DO Work Phone: 32\S\32 above high threshold 7-25 [facility] 250 DO Work Phone: [phone] 93\S\93 Normal 74-109 [facility] [address] DO Work Phone: Comment on above: Random Glucose Refer ence Range is dependent on time and content of last meal. Glucose of more than 200 mg/dL in a nonstressed, ambulatory subject supports the diagnosis of Diabetes Mellitus. ADA recommended reference range 1.23\S\1.23 Normal 0.45-5.33 [facility] 250 DO Work Phone: Comment on above: PERFORMED BY:[facility] [place], [place] [id number] MEDICAL DIRECTORROWENA LIPSCOMB M.D. Potassium [Moles/volume] in Serum or PlasmaOrdered By: Jose Martin Jones on 04-27-2022 Potassium [Moles/Vol] 4.5 mmol/L 3.5-5.1 [facility] Radiologyon 04-27-2022 XR Chest 2 Views Normal [facility] 250 DO Work Phone: Serum or plasma anion gap de terminationOrdered By: Jose Martin Jones on 04-27-2022 Anion gap [Moles/Vol] 15.4 mmol/L 6.0-15.0 [facility] [place] Sodium [Moles/volume] in Ser um or PlasmaOrdered By: Jose Martin Jones on 04-27-2022 Sodium [Moles/Vol] 142 mmol/L 136-145 [facility] Thyrotropin [Units/volume] i n Serum or PlasmaOrdered By: Jose Martin Jones on 04-27-2022 TSH Qn 1.23 m[IU]/L 0.45-5.33 [facility] Urea nitrogen [Mass/volume] in Serum or PlasmaOrdered By: Jose Martin Jones on 04-27-2022 Urea nitrogen [Mass/Vol] 32 mg/dL 7-25 [facility] Creatinine and Glomerular fi ltration rate.predicted panel (S/P/Bld)Ordered By: Jose Martin Jones on 01-21-2022 Creatinine [Mass/Vol] 1.34 mg/dL 0.44-1.03 [facility] Estimated glomerular filtrat ion rate (GFR) non- AmericanOrdered By: Jose Martin Jones on 01-21-2022 GFR/1.73 sq M.predicted among non-blacks MDRD (S/P/Bld) [Vol rate/Area] 38 mL/Min [facility] No Panel InformationOrdered By: Jose Martin Jones on 01-21-2022 Estimated GFR () 47 mL/Min [facility] Comment on above: GFR estimated refere nce range: According to KDOQI guidelines, <60 ml/min/1.73m2 is sufficient to diagnose a patient with chronic kidney disease. Pharmacy Creatinine Clearance (Chem N/A [facility] No Panel Informationon 01-21 1.19\S\1.19 Normal 0.45-5.33 -[facility] [address] DO Work Phone: Comment on above: PERFORMED BY:[place] [address] [address] [place], [place] [id number] MEDICAL DIRECTORJIANLAN SUN M.D. 22\S\22 Normal 10-42 [facility] [facility] 250 DO Work Phone: 10.7\S\10.7 Normal 6.0-15.0 [facility] [employer] [facility] [address] DO Work Phone: 8.7\S\8.7 Normal 8.2-10.2 [facility] [employer] [facility] [address] DO Work Phone: 25.5\S\25.5 Normal 22.0-30.0 [facility] [facility] [address] DO Work Phone: 108\S\108 Normal 95-114 [facility] [facility] [address] DO Work Phone: 4.2\S\4.2 Normal 3.5-5.1 [facility] [employer] [facility] [address] DO Work Phone: 140\S\140 Normal 136-146 [facility] [employer] [facility] [address] DO Work Phone: 47\S\47 Normal [facility] [employer] [facility] [address] DO Work Phone: Comment on above: GFR estimated refere nce range: According to KDOQI guidelines, <60 ml/min/1.73m2 is sufficient to diagnose a patient with chronic kidney disease. 38\S\38 Normal [facility] [facility] [address] DO Work Phone: 1.34\S\1.34 above high threshold 0.44-1.03 [facility] [facility] [address] DO Work Phone: 16\S\16 Normal 9-23 [facility] [employer] [facility] [address] DO Work Phone: 67\S\67 below low threshold 70-100 [facility] [employer] [facility] [address] DO Work Phone: [phone] Comment on above: Random Glucose Refer ence [...] Weight Tips; Status:Complete - Retrospective Authorization; Done: [id number] Some eating tips that can help you lose weight.; Status:Complete - Retrospective Authorization; Done: [id number] Paroxysmal atrial fibrillation IO EKG Electrocardiogram- 12 Lead; Status:Complete; Done: [id number] SocHx: Never a smoker Tobacco Use Screening; Status:Complete; Done: [id number] Unlinked Stop: Metoprolol Tartrate 100 MG Oral [...] negative for complaint. Vitals Vital Signs Recorded: 21Jan2022 02:17PM Heart Rate47, Apical [id number], RUE, Sitting [id number], (more content not included)... Normal [facility] Radiologyon 01-21-2022 XR Chest 2 Views Normal -[facility] [address] DO Work Phone: Serum or plasma anion gap de terminationOrdered By: Jose Martin Jones on 01-21-2022 Anion gap [Moles/Vol] 10.7 mmol/L 6.0-15.0 [facility] Serum or plasma aspartate am inotransferase measurement (enzymatic activity/volume)Ordered By: Jose Martin Jones on 01-21-2022 AST [Catalytic activity/Vol] 22 U/L 10-42 [facility] Serum or plasma calcium michael urement (mass/volume)Ordered By: Jose Martin Jones on 01-21-2022 Calcium [Mass/Vol] 8.7 mg/dL 8.2-10.2 [facility] Serum or plasma chloride diane surement (moles/volume)Ordered By: Jose Martin Jones on 01-21-2022 Chloride [Moles/Vol] 108 mmol/L 95-114 [facility] Serum or plasma glucose michael urement (mass/volume)Ordered By: Jose Martin Jones on 01-21-2022 Glucose [Mass/Vol] 67 mg/dL 70-100 [facility] Comment on above: ADA recommended refe rence rangeRandom Glucose Reference Range is dependent on time and content of last meal. Glucose of more than 200 mg/dL in a nonstressed, ambulatory subject supports the diagnosis of Diabetes Mellitus. Serum or plasma potassium me asurement (moles/volume)Ordered By: Jose Martin Jones on 01-21-2022 Potassium [Moles/Vol] 4.2 mmol/L 3.5-5.1 [facility] Serum or plasma sodium measu rement (moles/volume)Ordered By: Jose Martin Jones on 01-21-2022 Sodium [Moles/Vol] 140 mmol/L 136-146 [facility] Serum or plasma total carbon dioxide measurement (moles/volume)Ordered By: Jose Martin Jones on 01-21-2022 CO2 [Moles/Vol] 25.5 mmol/L 22.0-30.0 [facility] Serum or plasma urea nitroge n measurement (mass/volume)Ordered By: Jose Martin Jones on 01-21-2022 Urea nitrogen [Mass/Vol] 16 mg/dL 9- [facility] TSH DL <= 0.005 mIU/L QnOrde red By: Jose Martin Jones on 01-21-2022 TSH Qn 1.19 m[IU]/L 0.45-5.33 [facility] Tobacco Screening.on 022 Fall risk assessment a) No falls within the last year -[facility] [address] DO Work Phone: Tobacco use status CPHS b) No -[facility] [address] DO Work Phone: Cardiovasc Arrhythmia Result son 11-10-2021 Cardiovasc Arrhythmia Results Reason For Visit Reason for Visit: Holter Monitor: [place] is here for the application of a 24 hour Holter monitor. Ordering Physician: Delilah Flores NP Diagnosis: PAF, SOB [facility] equipment agreement signed. [place] understands monitor is to be returned on: 11/11/21 Monitor number [id number] applied. 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 Normal [employer] Tobacco Screening.on 022 Fall risk assessment a) No falls within the last year [facility] 250 DO Work Phone: Tobacco use status HS b) No [facility] DO Work Phone: [facility] CARDIAC STRESS/REST INJE CTIONon 09-21-2021 [facility] CARDIAC STRESS/REST INJECTION Patient Name: [place], [place] STUDY: MYOCARDIAL PERFUSION STRESS TEST WITH LEXISCAN Performing facility: [facility], [address] [place] [address] Provider: Delilah Turner RN, PHYSIOLOGICAL CHEMIST PCP: Dr. Shelia Wiseman Supervising provider: Delilah Turner RN, PHYSIOLOGICAL CHEMIST INDICATION: A-fib Cardiomyopathy HISTORY: Gender: F; Age: 76 y/o ; Height: 0 cm; Weight: 0 kg. CAD; Family HX CAD; HTN; Arrhythmias; Denies smoking. COMPARISON: No comparison. ACCESSION NUMBER(S): [id number]; [id number]; [id number] ORDERING CLINICIAN: DELILAH TURNER TECHNIQUE: TWO DAY [...] Electronically signed by: YVONNE HAAS MD Normal [facility] No Panel Informationon 09-21 Normal -[facility] mart 250 DO Work Phone: Office Visit (Cardiology)on [...] TABLET DAILY Basic Metabolic Panel; Status:Active; Requested for:[id number]; Start: Spironolactone 25 MG Oral Tablet; TAKE 1 TABLET DAILY IO EKG Electrocardiogram- 12 Lead; Status:Active - Perform Order; Requested for:[id number]; NM Cardiac Stress/Rest Nuclear Med Order; Status:Hold For - Scheduling; Requested for:[id number]; Radiologist to Determine Optimal Study : Y What are the patient's signs and symptoms? : PAF, CM Class 2 obesity with body mass index (BMI) of 39.0 to 39.9 in adult Healthy Weight Tips; Status:Complete; Done: [id number] Unlinked Stop: Potassium Chloride Lori ER 20 [...] contact the office if new symptoms arise. 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 Normal [employer] Tobacco Screening.on 022 Adult depression screening assessment No [facility] 250 DO Work Phone: Fall risk assessment b) One or more fall s in the last year [facility] 250 DO Work Phone: Tobacco use status CPH[facility] b) No [facility] 250 DO Work Phone: Echocardiogramon 08-31-2021 [facility]ography [facility] [address] [place] [address], [address] [place] [address] TRANSTHORACIC ECHOCARDIOGRAM REPORT Patient Name: EDUARDO Desai Physician: [id number] Jose Martin HOWARD MD Study Date: 08/31/2021 Referring [id number] JOSE MARTIN JONES Physician: MRN/PID: [id number] PCP: Andrei Wiseman Accession/Order#: [id number] [facility] Location: [place] Date of : 1945 Fellow: Gender: F Nurse: Misti Lopez RN Admit Date: Bond Trader: Taty Allen RDCS, T Height: 170.18 cm CC Report to: Weight: 112.95 kg Study Type: Echocardiogram BSA: 2.22 m2 Blood Pressure: 144 /88 mmHg Diagnosis/ICD: I42.9-Cardiomyopathy, unspecified; M98-Enbyuzlqc (primary) hypertension; I48.0-Paroxysmal atrial fibrillation Indication: Family History of CAD, Obesity Procedure/CPT: Echo Complete w Full Doppler-20220 Study Detail: The following Echo studies were [...] 0.5 m/s (0.6-0.9m/s) PV Max P.2 mmHg [id number] Jose Martin Jones MD Electronically signed on 08/31/2021 at 6:01:[address] [facility] Falls Screening (Age 18+)on 08-31-2021 Fall risk assessment a) No falls within the last year -[facility] [address] [place] Work Phone: Office Visit [...] Patient Instructions By signing my name below, Mimi Esparza RN,Scribe Please bring all medicines, vitamins, and [...] she has been getting her care in [facility] from the [place] [facility] group Recently, her lead electrical controls engineer became ill and she has not had any continuity of care ever since. She had been plagued by paroxysmal atrial fibrillation and it appears that the attending lead electrical controls engineer placed her on flecainide. This would lead [...] MG TABSTAKE (more content not included)... Normal [employer] Tobacco Screening.on 022 Adult depression screening assessment No [facility] 250 DO Work Phone: Fall risk assessment a) No falls within the last year [facility] 250 DO Work Phone: Tobacco use status [facility] b) No -[facility] 250 DO Work Phone: Adult depression screening assessment No [facility] 250 DO Work Phone: Fall risk assessment a) No falls within the last year [facility] 250 DO Work Phone: Tobacco use status [facility] b) No [facility] 250 DO Work Phone: PROTIMEon 12-04-2020 INR Coag (PPP) [Relative time] 0.98 {INR} Normal [facility] Comment on above: Performed By: #### P TT, PT #### [facility] [address] [place] [address] Dr. Soniya Qureshi INR GUIDELINES SEE BELOW Normal [facility] Comment on above: Result Comment: JAVED RED INR: 2.0 - 3.0 CONDITIONS NOT LISTED BELOW 2.5 - 3.5 FOR PROSTHETIC HEART VALVE REPLACEMENT 2.5 - 3.5 RECURRENT THROMBOSIS Performed By: #### P TT, PT #### [facility] [address] [place] [address] Dr. Soniya Qureshi PT Coag (PPP) [Time] 10.6 s Normal 9.0-11.6 [facility] Comment on above: Performed By: #### P TT, PT #### [facility] [address] [place] [address] Dr. Soniya Qureshi PTTon 12-04-2020 aPTT Coag (Bld) [Time] 25.4 s Normal 22.3-36.2 [facility] Comment on above: Performed By: #### P TT, PT #### [facility] [address] [place] [address] Dr. Soniya Qureshi XR KUB 1 VIEWon [...] MARGARET ROMAN Date: 2020-12-04 07:13 Normal [facility]-08 SARS-CoV-2 (COVID-19) RNA HÉCTOR+probe Ql (Unsp spec) Not detected Normal NOT DETECTED [facility] Comment on above: Result Comment: This test is not yet approved or cleared by the [place] FDA. When there are no FDA-approved or cleared tests available, and other criteria are met, FDA can make tests available under an emergency access mechanism called an Emergency Use Authorization (EUA). The EUA for this test is supported by the [place] of Health and Human Service's (HHS's) declaration [...] consistent with SARS-CoV-2. Performed By: #### C VDTB #### [facility] [address] [place] [address] Dr. Soniya Qureshi XR KUB 1 VIEWon [...] ANDREI MERCADO Date: 2020-11-13 07:52 Normal [facility]on SARS-CoV-2 (COVID-19) RNA HÉCTOR+probe Ql (Unsp spec) Not detected Normal NOT DETECTED [facility] Comment on above: Result Comment: This test is not yet approved or cleared by the [place] FDA. When there are no FDA-approved or cleared tests available, and other criteria are met, FDA can make tests available under an emergency access mechanism called an Emergency Use Authorization (EUA). The EUA for this test is supported by the [place] of Health and Human Service's (HHS's) declaration [...] SARS-CoV-2. Performed By: #### C VDTBH #### [facility] [address] [address] [address] Soniya Qureshi PROTIMEon 11-06-2020 INR Coag (PPP) [Relative time] 1.07 {INR} Normal [facility] Comment on above: Performed By: #### P T, PTT #### [facility] [address] [address] [address] Soniya Qureshi INR GUIDELINES SEE BELOW Normal [facility] Comment on above: Result Comment: JAVED RED INR: 2.0 - 3.0 CONDITIONS NOT LISTED BELOW 2.5 - 3.5 FOR PROSTHETIC HEART VALVE REPLACEMENT 2.5 - 3.5 RECURRENT THROMBOSIS Performed By: #### P T, PTT #### [facility] [address] [place] [address] Dr. Soniya Qureshi PT Coag (PPP) [Time] 11.5 s Normal 9.0-11.6 [facility] Comment on above: Performed By: #### P T, PTT #### [facility] [address] [place] [address] Dr. Soniya Qureshi PTTon 11-06-2020 aPTT Coag (Bld) [Time] 27.4 s Normal 22.3-36.2 [facility] Comment on above: Performed By: #### P T, PTT #### [facility] [address] [place] [address] Dr. Soniya Qureshi CNPNon 11-04-2020 CNPN Telephone ([facility]) -- HERNANDO HOWARD ([id number]) 1945 F Date Time Provider Department 11/04/20 [...] Reason for Visit: Request Outside Medical Records [[id number]] Prescriptions as of 11/04/2020 - metoprolol tartrate, [...] Encounter Status:Closed by RAINA DIAZ on 11/04/20 [facility] CNOVSPon 10-07-2020 OVS Visit (SP) Office ([facility]) -- HERNANDO HOWARD ([id number]) 1945 F Date Time Provider Department 10/07/20 11:15 AM PHIL BROOKS During your visit today, we recorded the following information about you: Temperature Pulse Respiration Blood pressure 96.7 degrees 75/minute 16/minute 160/87 Weight Height 115.6 kg 1.689 m Phil Brooks MD 10/07/2020 10:56 PM Signed [id number] ATTENDING PHYSICIAN: Phil Brooks MD DATE OF SERVICE: October 07, [address] Allyson Saleem thank you for referring . Hernando Howard for an opinion regarding history [...] General a (more content not included)... Normal [facility] XR KUB 1 VIEWon 09-15-2020 XR [...] by: MARGARET ROMAN Date: 2020-09-15 14:42 Normal [facility] Vital Signs Date Time Vital Sign Value Performing Clinician Facility 10-02-2024 13:28-0400 Body height 167.[address] 10-02-2024 13:28-0400 Body mass index (BMI) [Ratio] 32.28 kg/m2 [address] 10-02-2024 13:28-0400 Body weight 90.[address] 10-02-2024 13:28-0400 Diastolic blood pressure 82 mm[Hg] [address] 10-02-2024 13:28-0400 Systolic blood pressure 136 mm[Hg] [address] 08-08-2024 13:07-0400 Body height 163.8 cm Jerome Quick MD Work Phone: [facility] 08-08-2024 13:07-0400 Body mass index (BMI) [Ratio] 33.63 kg/m2 Jerome Quick MD Work Phone: [facility] 08-08-2024 13:07-0400 Body weight 90.27 kg Jerome Quick MD Work Phone: [facility] 08-08-2024 13:07-0400 Diastolic blood pressure 80 mm[Hg] Jerome Quick MD Work Phone: [facility] 08-08-2024 13:07-0400 Heart rate 72 /min Jerome Quick MD Work Phone: [facility] 08-08-2024 13:07-0400 Respiratory rate 18 /min Jerome Quick MD Work Phone: [facility] 08-08-2024 13:07-0400 SaO2% (BldA) [Mass fraction] 98 % Jerome Quick MD Work Phone: [facility] 08-08-2024 13:07-0400 Systolic blood pressure 108 mm[Hg] Jerome Quick MD Work Phone: [facility] 08-01-2024 11:06-0400 Body height 167.6 cm [facility] 08-01-2024 11:06-0400 Body mass index (BMI) [Ratio] 32.35 kg/m2 [facility] 08-01-2024 11:06-0400 Body weight 90.9 kg [facility] 08-01-2024 11:06-0400 Diastolic blood pressure 86 mm[Hg] [facility] 08-01-2024 11:06-0400 Heart rate 75 /min [facility] 08-01-2024 11:06-0400 Systolic blood pressure 142 mm[Hg] [facility] 07-26-2024 15:47-0400 Body mass index (BMI) [Ratio] 32.6 kg/m2 Jerome Quick MD Work Phone: [facility] 07-26-2024 15:47-0400 Body temperature 97.9 [degF] Jerome Quick MD Work Phone: [facility] 07-26-2024 15:47-0400 Body weight 91.63 kg Jerome Quick MD Work Phone: [facility] 07-26-2024 15:47-0400 Diastolic blood pressure 60 mm[Hg] Jerome Quick MD Work Phone: [facility] 07-26-2024 15:47-0400 Heart rate 70 /min Jerome Quick MD Work Phone: [facility] 07-26-2024 15:47-0400 Respiratory rate 20 /min Jerome Quick MD Work Phone: [facility] 07-26-2024 15:47-0400 SaO2% (BldA) [Mass fraction] 95 % Jerome Quick MD Work Phone: [facility] 07-26-2024 15:47-0400 Systolic blood pressure 110 mm[Hg] Jerome Quick MD Work Phone: [facility] 07-25-2024 10:24-0400 Body height 167.6 cm Yvonne Haas MD Work Phone: [facility] 07-25-2024 10:24-0400 Body mass index (BMI) [Ratio] 32.73 kg/m2 Yvonne Haas MD Work Phone: [facility] 07-25-2024 10:24-0400 Body weight 91.99 kg Yvonne Haas MD Work Phone: [facility] 07-25-2024 10:24-0400 Diastolic blood pressure 76 mm[Hg] Yvonne Haas MD Work Phone: [facility] 07-25-2024 10:24-0400 Heart rate 76 /min Yvonne Haas MD Work Phone: [facility] 07-25-2024 10:24-0400 Systolic blood pressure 122 mm[Hg] Yvonne Haas MD Work Phone: [facility] 12-14-2023 12:21-0500 Body height 167.[address] 12-14-2023 12:21-0500 Body mass index (BMI) [Ratio] 33.73 kg/m2 [address] 12-14-2023 12:21-0500 Body weight 94.[address] 12-14-2023 12:21-0500 Diastolic blood pressure 84 mm[Hg] [address] 12-14-2023 12:21-0500 Systolic blood pressure 130 mm[Hg] [address] 12-13-2023 10:37-0500 Diastolic blood pressure 75 mm[Hg] Yvonne Haas MD Work Phone: [facility] 12-13-2023 10:37-0500 Systolic blood pressure 130 mm[Hg] Yvonne Haas MD Work Phone: [facility] 12-13-2023 09:55-0500 Body height 167.6 cm Yvonne Haas MD Work Phone: [facility] 12-13-2023 09:55-0500 Body mass index (BMI) [Ratio] 33.73 kg/m2 Yvonne Haas MD Work Phone: [facility] 12-13-2023 09:55-0500 Body weight 94.8 kg Yvonne Haas MD Work Phone: [facility] 12-13-2023 09:55-0500 Heart rate 87 /min Yvonne Haas MD Work Phone: [facility] 12-01-2023 16:49-0400 Diastolic blood pressure 64 mm[Hg] MD Andrei Wiseman Work Phone: [facility] 12-01-2023 16:49-0400 Heart rate 62 /min MD Andrei Wiseman Work Phone: [facility] 12-01-2023 16:49-0400 Respiratory rate 22 /min MD Andrei Wiseman Work Phone: [facility] 12-01-2023 16:49-0400 SaO2% (BldA) [Mass fraction] 95 % MD Andrei Wiseman Work Phone: [facility] 12-01-2023 16:49-0400 Systolic blood pressure 139 mm[Hg] MD Andrei Wiseman Work Phone: [facility] 12-01-2023 13:02-0400 Body height 167.64 cm MD Andrei Wiseman Work Phone: [facility] 12-01-2023 13:02-0400 Body temperature 97.9 [degF] MD Andrei Wiseman Work Phone: [facility] 12-01-2023 13:02-0400 Body weight 94 kg MD Andrei Wiseman Work Phone: [facility] 09-16-2023 10:18-0400 Blood Pressure Location Allyson SALEEM [facility] 09-16-2023 10:18-0400 Diastolic blood pressure 78 mm[Hg] Allyson SALEEM [facility] 09-16-2023 10:18-0400 Heart rate 80 /min Allyson SALEEM [facility] 09-16-2023 10:18-0400 Respiratory rate 16 /min Allyson SALEEM [facility] 09-16-2023 10:18-0400 Systolic blood pressure 136 mm[Hg] Allyson SALEEM [facility] 08-04-2023 09:31-0400 Body height 167.6 cm Andrei Wiseman MD Work Phone: [facility] 08-04-2023 09:31-0400 Body mass index (BMI) [Ratio] 33.25 kg/m2 Andrei Wiseman MD Work Phone: [facility] 08-04-2023 09:31-0400 Body temperature 97.59 [degF] Andrei Wiseman MD Work Phone: [facility] 08-04-2023 09:31-0400 Body weight 93.44 kg Andrei Wiseman MD Work Phone: [facility] 08-04-2023 09:31-0400 Diastolic blood pressure 80 mm[Hg] Andrei Wiseman MD Work Phone: [facility] 08-04-2023 09:31-0400 Heart rate 68 /min Andrei Wiseman MD Work Phone: [facility] 08-04-2023 09:31-0400 Respiratory rate 16 /min Andrei Wiseman MD Work Phone: [facility] 08-04-2023 09:31-0400 Systolic blood pressure 128 mm[Hg] Andrei Wiseman MD Work Phone: [facility] 03-01-2023 12:13-0500 Body height 167.6 cm Delilah Turner CALL CENTER RECRUITER-PHYSIOLOGICAL CHEMIST Work Phone: [facility] 03-01-2023 12:13-0500 Body mass index (BMI) [Ratio] 33.73 kg/m2 Delilah Turner CALL CENTER RECRUITER-PHYSIOLOGICAL CHEMIST Work Phone: [facility] 03-01-2023 12:13-0500 Body weight 94.8 kg Delilah Turner CALL CENTER RECRUITER-PHYSIOLOGICAL CHEMIST Work Phone: [facility] 03-01-2023 12:13-0500 Diastolic blood pressure 70 mm[Hg] Delilah Turner CALL CENTER RECRUITER-PHYSIOLOGICAL CHEMIST Work Phone: [facility] 03-01-2023 12:13-0500 Heart rate 64 /min Delilah Turner CALL CENTER RECRUITER-PHYSIOLOGICAL CHEMIST Work Phone: [facility] 03-01-2023 12:13-0500 Systolic blood pressure 108 mm[Hg] Delilah Turner CALL CENTER RECRUITER-PHYSIOLOGICAL CHEMIST Work Phone: [facility] 02-21-2023 10:19-0500 Body height 167.6 cm Delilah Turner CALL CENTER RECRUITER-PHYSIOLOGICAL CHEMIST Work Phone: [facility] 02-21-2023 10:19-0500 Body mass index (BMI) [Ratio] 33.89 kg/m2 Delilah Turner CALL CENTER RECRUITER-PHYSIOLOGICAL CHEMIST Work Phone: [facility] 02-21-2023 10:19-0500 Body weight 95.25 kg Delilah Turner CALL CENTER RECRUITER-PHYSIOLOGICAL CHEMIST Work Phone: [facility] 02-21-2023 10:19-0500 Diastolic blood pressure 84 mm[Hg] Delilah Turner CALL CENTER RECRUITER-PHYSIOLOGICAL CHEMIST Work Phone: [facility] 02-21-2023 10:19-0500 Heart rate 31 /min Delilah Turner CALL CENTER RECRUITER-PHYSIOLOGICAL CHEMIST Work Phone: [facility] 02-21-2023 10:19-0500 Systolic blood pressure 128 mm[Hg] Delilah Turner CALL CENTER RECRUITER-PHYSIOLOGICAL CHEMIST Work Phone: [facility] 02-01-2023 09:40-0500 Body height 167.6 cm Andrei Wiseman MD Work Phone: [facility] 02-01-2023 09:40-0500 Body mass index (BMI) [Ratio] 34.3 kg/m2 Andrei Wiseman MD Work Phone: [facility] 02-01-2023 09:40-0500 Body weight 96.39 kg Andrei Wiseman MD Work Phone: [facility] 02-01-2023 09:40-0500 Diastolic blood pressure 84 mm[Hg] Andrei Wiseman MD Work Phone: [facility] 02-01-2023 09:40-0500 Heart rate 60 /min Andrei Wiseman MD Work Phone: [facility] 02-01-2023 09:40-0500 Respiratory rate 16 /min Andrei Wiseman MD Work Phone: [facility] 02-01-2023 09:40-0500 Systolic blood pressure 122 mm[Hg] Andrei Wiseman MD Work Phone: [facility] 01-21-2023 10:43-0500 Body height 167.[address] 01-21-2023 10:43-0500 Body mass index (BMI) [Ratio] 34.54 kg/m2 [address] 01-21-2023 10:43-0500 Body weight 97.[address] 01-21-2023 10:43-0500 Diastolic blood pressure 84 mm[Hg] [address] 01-21-2023 10:43-0500 Systolic blood pressure 140 mm[Hg] [address] 01-17-2023 09:27-0500 Body height 167.6 cm Delilah Turner CALL CENTER RECRUITER-PHYSIOLOGICAL CHEMIST Work Phone: [facility] 01-17-2023 09:27-0500 Body mass index (BMI) [Ratio] 34.54 kg/m2 Delilah Turner CALL CENTER RECRUITER-PHYSIOLOGICAL CHEMIST Work Phone: [facility] 01-17-2023 09:27-0500 Body weight 97.07 kg Delilah Turner CALL CENTER RECRUITER-PHYSIOLOGICAL CHEMIST Work Phone: [facility] 01-17-2023 09:27-0500 Diastolic blood pressure 80 mm[Hg] Delilah Turner CALL CENTER RECRUITER-PHYSIOLOGICAL CHEMIST Work Phone: [facility] 01-17-2023 09:27-0500 Heart rate 46 /min Delilah Turner CALL CENTER RECRUITER-PHYSIOLOGICAL CHEMIST Work Phone: [facility] 01-17-2023 09:27-0500 Systolic blood pressure 142 mm[Hg] Delilah Turner CALL CENTER RECRUITER-PHYSIOLOGICAL CHEMIST Work Phone: [facility] 09-13-2022 10:27-0400 Blood Pressure Location Allyson SALEEM [facility] 09-13-2022 10:27-0400 Diastolic blood pressure 80 mm[Hg] Allyson SALEEM [facility] 09-13-2022 10:27-0400 Heart rate 78 /min Allyson SALEEM [facility] 09-13-2022 10:27-0400 Respiratory rate 16 /min Allyson SALEEM [facility] 09-13-2022 10:27-0400 Systolic blood pressure 130 mm[Hg] Allyson SALEEM [facility] 07-19-2022 09:10-0400 Body height 167.64 cm Andrei Aaron Def[place] Work Phone: [facility] 250 DO Work Phone: 07-19-2022 09:10-0400 Body mass index (BMI) [Ratio] 34.86 kg/m2 Andrei T Defrance Work Phone: [facility] DO Work Phone: 07-19-2022 09:10-0400 Body surface area Derived from formula 2.07 m2 Andrei T Defrance Work Phone: [facility] 250 DO Work Phone: 07-19-2022 09:10-0400 Body weight 97.98 kg Andrei T Defrance Work Phone: [facility] 250 DO Work Phone: 07-19-2022 09:10-0400 Diastolic blood pressure 70 mm[Hg] Andrei Walker Defrance Work Phone: [facility] [address] DO Work Phone: 07-19-2022 09:10-0400 Heart rate 45 /min Andrei T Defrance Work Phone: [facility] 250 DO Work Phone: 07-19-2022 09:10-0400 Systolic blood pressure 128 mm[Hg] Andrei T Defrance Work Phone: [facility] 250 DO Work Phone: 01-21-2022 14:17-0500 Body height 167.64 cm Andrei Walker Defrance Work Phone: [facility] 250 DO Work Phone: 01-21-2022 14:17-0500 Body mass index (BMI) [Ratio] 38.41 kg/m2 Andrei T Defrance Work Phone: [facility] 250 DO Work Phone: 01-21-2022 14:17-0500 Body surface area Derived from formula 2.15 m2 Andrei T Defrance Work Phone: [facility] 250 DO Work Phone: 01-21-2022 14:17-0500 Body weight 107.96 kg Andrei T Defrance Work Phone: [facility] DO Work Phone: 01-21-2022 14:17-0500 Diastolic blood pressure 72 mm[Hg] Andrei Walker Defrance Work Phone: [facility] 250 DO Work Phone: 01-21-2022 14:17-0500 Heart rate 47 /min Andrei Walker Defrance Work Phone: [facility] 250 DO Work Phone: 01-21-2022 14:17-0500 Systolic blood pressure 132 mm[Hg] Andrei Walker Defrance Work Phone: [facility] 250 DO Work Phone: 11-03-2021 10:36-0400 Heart rate 48 /min Andrei T Defrance Work Phone: [facility] 250 DO Work Phone: 11-03-2021 10:32-0400 Body height 167.64 cm Andrei T Defrance Work Phone: [facility] 250 DO Work Phone: 11-03-2021 10:32-0400 Body mass index (BMI) [Ratio] 39.38 kg/m2 Andrei Walker Defrance Work Phone: [facility] 250 DO Work Phone: 11-03-2021 10:32-0400 Body surface area Derived from formula 2.18 m2 Andrei Walker Defrance Work Phone: [facility] 250 DO Work Phone: 11-03-2021 10:32-0400 Body weight 110.68 kg Andrei Walker Defrance Work Phone: [facility] DO Work Phone: 11-03-2021 10:32-0400 Diastolic blood pressure 86 mm[Hg] Andrei Walker Defrance Work Phone: [facility] 250 DO Work Phone: 11-03-2021 10:32-0400 Systolic blood pressure 138 mm[Hg] Andrei Walker Defrance Work Phone: [facility] DO Work Phone: 09-21-2021 12:00-0400 48 1 Andrei Walker Defrance Work Phone: [facility] [address] [place] Work Phone: Comment on above: [id number] 09-14-2021 15:01-0400 Body height 167.64 cm Andrei Walker Defrance Work Phone: [facility] DO Work Phone: 09-14-2021 15:01-0400 Body mass index (BMI) [Ratio] 39.87 kg/m2 Andrei Walker Defrance Work Phone: [facility] 250 DO Work Phone: 09-14-2021 15:01-0400 Body surface area Derived from formula 2.19 m2 Andrei Walker Defrance Work Phone: [facility] 250 DO Work Phone: 09-14-2021 15:01-0400 Body weight 112.04 kg Andrei Aaron Defrance Work Phone: [facility] DO Work Phone: 09-14-2021 15:01-0400 Diastolic blood pressure 86 mm[Hg] Andrei Walker Defrance Work Phone: [facility] DO Work Phone: 09-14-2021 15:01-0400 Heart rate 77 /min Andrei Walker Defrance Work Phone: [facility] DO Work Phone: 09-14-2021 15:01-0400 Systolic blood pressure 128 mm[Hg] Andrei Walker Defrance Work Phone: [facility] DO Work Phone: 09-07-2021 11:37-0400 Body height 167.64 cm Andrei Aaron Defrance Work Phone: [facility] DO Work Phone: 09-07-2021 11:37-0400 Body mass index (BMI) [Ratio] 39.54 kg/m2 Andrei Walker Defrance Work Phone: [facility] DO Work Phone: 09-07-2021 11:37-0400 Body surface area Derived from formula 2.18 m2 Andrei Walekr Def[place] Work Phone: [facility] DO Work Phone: 09-07-2021 11:37-0400 Body weight 111.13 kg Andrei Walker [place] Work Phone: [facility] DO Work Phone: 09-07-2021 11:37-0400 Diastolic blood pressure 74 mm[Hg] Andrei Walker [place] Work Phone: [facility] DO Work Phone: 09-07-2021 11:37-0400 Heart rate 70 /min Andrei Walker [place] Work Phone: [facility] DO Work Phone: 09-07-2021 11:37-0400 Systolic blood pressure 122 mm[Hg] Andrei Walker [place] Work Phone: [facility] DO Work Phone: 08-31-2021 10:45-0400 35 1 Andrei Walker [place] Work Phone: [facility] [place] Work Phone: Comment on above: [id number] 07-22-2021 17:22-0400 Body height 170.18 cm Andrei Walker [place] Work Phone: [facility] DO Work Phone: 07-22-2021 17:22-0400 Body mass index (BMI) [Ratio] 39 kg/m2 Andrei Walker [place] Work Phone: [facility] DO Work Phone: 07-22-2021 17:22-0400 Body surface area Derived from formula 2.22 m2 Andrei Walker [place] Work Phone: [facility] DO Work Phone: 07-22-2021 17:22-0400 Body weight 112.95 kg Andrei Walker [place] Work Phone: [facility] DO Work Phone: 07-22-2021 17:22-0400 Diastolic blood pressure 88 mm[Hg] Andrei Walker [place] Work Phone: [facility] DO Work Phone: 07-22-2021 17:22-0400 Heart rate 74 /min Andrei Walker [place] Work Phone: [facility] DO Work Phone: 07-22-2021 17:22-0400 Systolic blood pressure 138 mm[Hg] Andrei Walker [place] Work Phone: [facility] DO Work Phone: 07-22-2021 12:50-0400 Body height 170.18 cm Andrei Walker [place] Work Phone: [facility] DO Work Phone: 07-22-2021 12:50-0400 Body mass index (BMI) [Ratio] 39 kg/m2 Andrei Walker [place] Work Phone: [facility] DO Work Phone: 07-22-2021 12:50-0400 Body surface area Derived from formula 2.22 m2 Andrei Walker [place] Work Phone: [facility] DO Work Phone: 07-22-2021 12:50-0400 Body weight 112.95 kg Andrei Walker [place] Work Phone: [facility] DO Work Phone: 07-22-2021 12:50-0400 Diastolic blood pressure 90 mm[Hg] Andrei Walker [place] Work Phone: [facility] DO Work Phone: 07-22-2021 12:50-0400 Heart rate 74 /min Andrei T [place] Work Phone: [facility] DO Work Phone: 07-22-2021 12:50-0400 Systolic blood pressure 142 mm[Hg] Andrei Walker [place] Work Phone: [facility] DO Work Phone: 07-22-2021 12:49-0400 Body height 170.18 cm Andrei Aaron [place] Work Phone: [facility] DO Work Phone: 07-22-2021 12:49-0400 Body mass index (BMI) [Ratio] 39 kg/m2 Andrei T [place] Work Phone: [facility] DO Work Phone: 07-22-2021 12:49-0400 Body surface area Derived from formula 2.22 m2 Andrei T [place] Work Phone: [facility] DO Work Phone: 07-22-2021 12:49-0400 Body weight 112.95 kg Andrei T [place] Work Phone: [facility] DO Work Phone: 07-22-2021 12:49-0400 Diastolic blood pressure 98 mm[Hg] Andrei Walker [place] Work Phone: [facility] DO Work Phone: 07-22-2021 12:49-0400 Heart rate 74 /min Andrei T [place] Work Phone: [facility] DO Work Phone: 07-22-2021 12:49-0400 Systolic blood pressure 144 mm[Hg] Andrei T Def[place] Work Phone: [facility] DO Work Phone: Encounters Encounter Date Encounter Type Care Provider Facility Start: 10-23-2024 ambulatory Allyson Easley ty:MELBA Steen Start: 10-04-2024 ambulatory Allyson Easley ty:[id number] Start: 10-02-2024 End: 10-02-2024 Subsequent hospital visit by physician Adenike Steen Echo/Vasc Room 2 [facility] Comment on above: Cardiomyopathy, unsp ecified type (Multi); Chronic diastolic congestive heart failure Start: 10-02-2024 End: 10-02-2024 ambulatory [place] [facility] Start: 09-17-2024 End: 09-17-2024 ambulatory Allyson SALEEM Facility:[facility] Start: 09-17-2024 End: 09-17-2024 ambulatory Allyson SALEEM Facility:[facility] Start: 09-17-2024 End: 09-17-2024 Patient encounter procedure Allyson SALEEM [facility] Start: 09-14-2024 End: 09-14-2024 ambulatory ALLYSON SALEEM [facility] Start: 09-13-2024 ambulatory [facility] Start: 09-12-2024 End: 09-12-2024 Follow[facility] encounter [facility] Medication Management Comment on above: Paroxysmal A-fib (CM S-HCC) (Primary Dx) Start: 09-12-2024 End: 09-12-2024 ambulatory [facility] MEDICATION [facility]NAGEMENT [facility] Start: 08-16-2024 End: 08-17-2024 Refill Andrei Wiseman MD Work Phone: [facility] Comment on above: PUD (peptic ulcer di sease) Start: 08-15-2024 End: 08-15-2024 Follow-up encounter [facility] 1 [facility] Medication Management Comment on above: Paroxysmal A-fib (CM S-HCC) (Primary Dx) Start: 08-15-2024 End: 08-15-2024 ambulatory [facility] MEDICATION MANAGEMENT [facility] Start: 08-08-2024 End: 08-08-2024 ambulatory [facility] Start: 08-08-2024 Encounter for genera l adult medical examination without abnormal findings [facility] Start: 08-08-2024 End: 08-08-2024 Patient encounter procedure Jerome Quick MD [facility] Comment on above: Encounter for Medica re annual wellness exam (Primary Dx); Paroxysmal A-fib (CMS-HCC); Single subsegmental pulmonary embolism without acute cor pulmonale (CMS-HCC); Chronic diastolic congestive heart failure (CMS-HCC); Essential hypertension; Acoustic neuroma (CMS-HCC); Yeast infection; PUD (peptic ulcer disease); Hypothyroidism (acquired) Start: 08-03-2024 End: 08-03-2024 Telephone encounter Ashley Keene [facility] Comment on above: Vaginitis Start: 08-01-2024 End: 08-01-2024 Professional / ancillary services management Raymundo [facility] Comment on above: 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 use; Paroxysmal atrial fibrillation (Multi) Start: 08-01-2024 End: 08-01-2024 ambulatory YVONNE Marroquin [facility] Amb[facility] Start: 07-26-2024 End: 07-26-2024 Office outpatient visit 25 minutes Jerome Quick MD Work Phone: [facility] Comment on above: Rhinopharyngitis (Pr imary Dx); Paroxysmal A-fib (CMS-HCC); Single subsegmental pulmonary embolism without acute cor pulmonale ([facility]-HCC) Start: 07-26-2024 End: 07-26-2024 ambulatory [facility] Start: 07-26-2024 End: 07-26-2024 Documentation procedure Heriberto Parra [facility] Work Phone: [facility] Medication Management Start: 07-25-2024 End: 07-25-2024 Office outpatient visit 25 minutes Yvonne Haas MD Work Phone: [facility] Comment on above: Chronic systolic hea rt failure (Primary Dx); Essential hypertension, benign; Cardiomyopathy, unspecified type (Multi); 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 use; Paroxysmal atrial fibrillation (Multi); Chronic diastolic congestive heart failure; 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; PVC (premature ventricular contraction); BMI 32.0-32.9,adult; Never smoked cigarettes; Obesity, Class I, BMI 30-34.9 Start: 07-25-2024 End: 07-25-2024 ambulatory [facility] Start: 07-18-2024 End: 07-18-2024 Follow-up encounter [facility] 1 [facility] Medication Management Comment on above: Paroxysmal A-fib (CM S-HCC) (Primary Dx) Start: 07-18-2024 End: 07-18-2024 ambulatory [facility] Start: 06-29-2024 End: 06-29-2024 ambulatory [facility] MEDICATION MANAGEMENT [facility] Start: 06-19-2024 End: 06-19-2024 [facility] Medication Management Comment on above: Paroxysmal A-fib (CM S-HCC) (Primary Dx); Single subsegmental pulmonary embolism without acute cor pulmonale (CMS-HCC) Start: 06-19-2024 End: 06-19-2024 ambulatory [facility] MEDICATION MANAGEMENT [facility] Start: 06-07-2024 End: 06-07-2024 Follow-up encounter [facility] Medication Management Comment on above: Atrial fibrillation, unspecified type (CMS-HCC) (Primary Dx) Start: 06-07-2024 End: 06-07-2024 [facility] Start: 05-18-2024 End: 05-18-2024 ambulatory [facility] MEDICATION MANAGEMENT [facility] Start: 05-18-2024 End: 05-18-2024 Follow-up encounter [facility] 2 [facility] Medication Management Comment on above: Atrial fibrillation, unspecified type (CMS-HCC) (Primary Dx) Start: 05-16-2024 End: 05-16-2024 Evaluation and management of inpatient MATTHEW DAMON [facility] Start: 05-09-2024 End: 05-09-2024 Follow-up encounter [facility] 1 [facility] Medication Management Comment on above: Atrial fibrillation, unspecified type (CMS-HCC) (Primary Dx) Start: 05-09-2024 End: 05-09-2024 ambulatory [facility] Start: 04-30-2024 End: 04-30-2024 ambulatory [facility] MEDICATION MANAGEMENT [facility] Start: 04-30-2024 End: 04-30-2024 Follow-up encounter [facility] 1 [facility] Medication Management Comment on above: Atrial fibrillation, unspecified type (CMS-HCC) (Primary Dx) Start: 04-16-2024 End: 04-16-2024 [facility]ulatory [facility] Start: 04-16-2024 End: 04-16-2024 Follow-up encounter [facility] 1 [facility] Medication Management Comment on above: Paroxysmal A-fib (CM S-HCC) (Primary Dx) Start: 04-09-2024 End: 04-09-2024 Emergency department patient visit ANDREI WISEMAN [facility] Start: 03-26-2024 End: 03-26-2024 ambulatory [facility] MEDICATION MANAGEMENT [facility] Start: 03-26-2024 End: 03-26-2024 Follow-up encounter [facility] 1 [facility] Medication Management Comment on above: Paroxysmal A-fib (CM S-HCC) (Primary Dx) Start: 03-05-2024 End: 03-05-2024 [facility] Start: 03-05-2024 End: 03-05-2024 Follow-up encounter [facility] Medication Therapy Management Comment on above: Paroxysmal A-fib (CM S-HCC) (Primary Dx) Start: 02-20-2024 End: 02-20-20[facility] Start: 02-20-2024 End: 02-20-2024 Follow-up encounter [facility] Medication Therapy Management Comment on above: Paroxysmal A-fib (CM S-HCC) (Primary Dx) Start: 02-02-2024 End: 02-02-2024 [facility] Med[facility] Therapy Management Comment on above: Paroxysmal A-fib (CM S-HCC) (Primary Dx) Start: 02-02-2024 End: 02-02-2024 ambulatory [facility] MEDICATION MANAGEMENT [facility] Start: 01-27-2024 End: 01-27-2024 ambulatory Andrei Wiseman Facility:[facility] Start: 01-25-2024 End: 01-25-2024 ambulatory ANDREI WISEMAN [facility] Start: 01-24-2024 End: 01-24-2024 ambulatory [facility] Start: 01-13-2024 End: 01-13-2024 ambulatory [facility] Start: 01-13-2024 End: 01-13-2024 [facility] Med[facility] Therapy Management Comment on above: Atrial fibrillation, unspecified type (CMS-HCC) (Primary Dx) Start: 01-04-2024 End: 01-04-2024 Refill Andrei Wiseman MD Work Phone: [facility] Start: 12-30-2023 End: 12-30-2023 [facility] Med[facility] Management Comment on above: Paroxysmal A-fib (CM S-HCC) (Primary Dx) Start: 12-30-2023 End: 12-30-2023 ambulatory [facility] Start: 12-23-2023 End: 12-23-2023 [facility] Med[facility] Therapy Management Comment on above: Paroxysmal A-fib (CM S-HCC) (Primary Dx) Start: 12-23-2023 End: 12-23-2023 ambulatory [facility] Start: 12-19-2023 End: 12-19-2023 ambulatory [facility] Amb[facility] Start: 12-16-2023 End: 12-16-2023 Follow-up encounter [facility] Medication Therapy Management Comment on above: Paroxysmal A-fib (CM S-HCC) (Primary Dx) Start: 12-16-2023 End: 12-16-2023 ambulatory [facility] Start: 12-14-2023 End: 12-14-2023 Subsequent hospital visit by physician Adenike Steen Echo/Vasc Room 2 [facility] Comment on above: Dilated cardiomyopat hy (Multi) Start: 12-14-2023 End: 12-14-2023 ambulatory [facility] Start: 12-13-2023 End: 12-13-2023 Office outpatient visit 25 minutes Yvonne Haas MD Work Phone: [facility] Comment on above: Paroxysmal atrial fi brillation (Multi) (Primary Dx); PVC (premature ventricular contraction); Mild CAD; Essential hypertension, benign; Dilated cardiomyopathy (Multi); Sick sinus syndrome (Multi); USP current use of anticoagulant therapy; 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 use; Never smoked cigarettes; BMI 33.0-33.9,adult; Obesity, Class I, BMI 30-34.9 Start: 12-13-2023 End: 12-13-2023 ambulatory [facility] Start: 12-09-2023 End: 12-09-2023 ambulatory [facility] Start: 12-09-2023 End: 12-09-2023 Follow-up encounter [facility] Medication Therapy Management Comment on above: Atrial fibrillation, unspecified type (CMS-HCC) (Primary Dx) Start: 12-01-2023 End: 12-01-2023 Emergency department patient visit MD Andrei Wiseman Work Phone: [facility] Work Phone: Start: 11-30-2023 End: 11-30-2023 ambulatory [facility] Start: 11-30-2023 End: 11-30-2023 Follow-up encounter [facility] Medication Therapy Management Comment on above: Atrial fibrillation, unspecified type (CMS-HCC) (Primary Dx) Start: 11-18-2023 End: 11-18-2023 Follow-up encounter [facility] Medication Therapy Management Comment on above: Atrial fibrillation, unspecified type (CMS-HCC) (Primary Dx) Start: 11-18-2023 End: 11-18-2023 ambulatory [facility] Start: 11-11-2023 End: 11-11-2023 Follow-up encounter [facility] Medication Therapy Management Comment on above: Atrial fibrillation, unspecified type (CMS-HCC) (Primary Dx) Start: 11-11-2023 End: 11-11-2023 ambulatory [facility] Start: 11-08-2023 End: 11-08-2023 Follow-up encounter [facility] Medication Therapy Management Comment on above: Paroxysmal A-fib (CM S-HCC) (Primary Dx) Start: 11-08-2023 End: 11-08-2023 [facility] Start: 11-04-2023 End: 11-04-2023 ambulatory [facility] Start: 11-04-2023 End: 11-04-2023 Follow-up encounter [facility] Medication Therapy Management Comment on above: Atrial fibrillation, unspecified type (CMS-HCC) (Primary Dx) Start: 10-31-2023 End: 10-31-2023 ambulatory [facility] Start: 10-31-2023 End: 10-31-2023 Follow-up encounter [facility] Medication Therapy Management Comment on above: Atrial fibrillation, unspecified type (CMS-HCC) (Primary Dx) Start: 10-28-2023 End: 10-28-2023 ambulatory [facility]OB[facility] SERVICE [facility] Start: 10-28-2023 End: 10-28-2023 Anticoagulant drug monitoring [facility] Medication Therapy Management Comment on above: Atrial fibrillation, unspecified type (CMS-HCC) (Primary Dx) Start: 10-24-2023 End: 10-25-2023 Anticoagulant drug monitoring Alisa Thompsonto [facility] Work Phone: [facility] Medication Therapy Management Comment on above: Atrial fibrillation, unspecified type (CMS-HCC) (Primary Dx) Start: 09-16-2023 End: 09-16-2023 Patient encounter procedure Allyson SALEEM [facility] Start: 08-04-2023 End: 08-04-2023 Patient encounter procedure Andrei Wiseman MD Work Phone: [facility] Comment on above: Routine general medi edwin examination at a health care facility (Primary Dx); Essential hypertension; Paroxysmal A-fib (CMS-HCC); Chronic diastolic congestive heart failure (CMS-HCC); H/O gastric bypass; Encounter for screening mammogram for malignant neoplasm of breast; Acoustic neuroma (CMS-HCC); Single subsegmental pulmonary embolism without acute cor pulmonale ([facility]-HCC) Start: 08-04-2023 End: 08-04-2023 Patient encounter status Andrei Wiseman MD Work Phone: [facility] [employer] [facility] Work Phone: Start: 05-11-2023 Refill Andrei martell MD Work Phone: [facility] Start: 03-25-2023 Non-patient / Non-visit MD Lui Wiseman Work Phone: [facility] Work Phone: Start: 03-25-2023 End: 03-25-2023 Patient encounter procedure MD Andrei Wiseman Work Phone: [facility]Res[facility] Therapy Work Phone: Start: 03-25-2023 End: 03-25-2023 ambulatory MD Andrei Wiseman Work Phone: [facility] Work Phone: Start: 03-14-2023 End: 03-14-2023 Subsequent hospital visit by physician Adenike Lockwood [place] Admin Room 1 [facility] Start: 03-01-2023 End: 03-01-2023 Office outpatient visit 25 minutes Delilah Turner CALL CENTER RECRUITER-PHYSIOLOGICAL CHEMIST Work Phone: [facility] Comment on above: Other cardiomyopathy (CMS/HCC) (Primary Dx); Sick sinus syndrome (CMS/HCC); Paroxysmal atrial fibrillation (CMS/HCC); 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 use; USP current use of anticoagulant therapy; Mild CAD; Essential hypertension, benign; BMI 34.0-34.9,adult; Abnormal electrocardiogram (ECG) (EKG) Start: 02-21-2023 End: 02-21-2023 Patient encounter procedure MD Andrei Wiseman Work Phone: [facility]-Lab Main [place] Work Phone: Start: 02-21-2023 End: 02-21-2023 ambulatory MD Andrei Wiseman Work Phone: [facility] Work Phone: Start: 02-21-2023 End: 02-21-2023 Office outpatient visit 25 minutes Delilah Turner CALL CENTER RECRUITER-PHYSIOLOGICAL CHEMIST Work Phone: [facility] Comment on above: Cardiomyopathy, unsp ecified type (CMS/HCC) (Primary Dx); Paroxysmal atrial fibrillation (CMS/HCC); 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 use; Mild CAD; Essential hypertension, benign; USP current use of anticoagulant therapy; BMI 34.0-34.9,adult; [...] by physician Adenike Steen Echo/Vasc Room 2 [facility] Comment on above: Cardiomyopathy, unsp ecified type (CMS/HCC); Abnormal electrocardiogram (ECG) (EKG) Start: 01-17-2023 End: 01-17-2023 Office outpatient visit 25 minutes Delilah Turner APRN-PHYSIOLOGICAL CHEMIST Work Phone: [facility] Comment on above: Paroxysmal atrial fi brillation (CMS/HCC) (Primary Dx); 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 use; 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; Cardiomyopathy, unspecified type (CMS/HCC); Mild CAD; Essential hypertension, benign; BMI 34.0-34.9,adult; Abnormal electrocardiogram (ECG) (EKG) Start: 09-22-2022 End: 09-22-2022 Lab Drop off Allyson SALEEM [facility] Start: 09-22-2022 End: 09-22-2022 Patient encounter procedure Allyson SALEEM [facility] Start: 09-13-2022 End: 09-13-2022 Patient encounter procedure Allyson SALEEM [facility] Start: 08-05-2022 Chart Update Andrei martell Work Phone: [facility] DO Work Phone: Start: 08-05-2022 End: 08-05-2022 ambulatory MD Andrei Wiseman Work Phone: [facility] Work Phone: Start: 08-05-2022 End: 08-05-2022 Patient encounter procedure MD Andrei Wiseman Work Phone: [facility] Work Phone: Start: 05-01-2022 Chart Update Andrei Peguero ce Work Phone: [facility] DO Work Phone: Start: 04-28-2022 Chart Update Andrei Peguero ce Work Phone: [facility] DO Work Phone: Start: 04-27-2022 End: 04-27-2022 ambulatory MD Andrei Wiseman Work Phone: [facility] Work Phone: Start: 04-27-2022 End: 04-27-2022 Patient encounter procedure MD Andrei Wiseman Work Phone: [facility] Work Phone: Start: 04-08-2022 Patient encounter procedure Da vid T [place] Work Phone: [facility] DO Work Phone: Start: 01-21-2022 FUV, Provider: Jose Martin Jones, Status: Pen, Time: 2:10 PM Andrei Wiseman Work Phone: [facility] DO Work Phone: Start: 01-21-2022 Office outpatient vi sit 25 minutes Andrei Formanrance Work Phone: [facility] DO Work Phone: Start: 01-21-2022 ambulatory Jose Martin Jones II Facility: Start: 01-21-2022 End: 01-21-2022 ambulatory MD Andrei Wiseman Work Phone: [facility] Work Phone: Start: 01-21-2022 End: 01-21-2022 Patient encounter procedure MD Andrei Wiseman Work Phone: [facility] Therapy Start: 01-12-2022 Patient encounter procedure Da vid T Def[place] Work Phone: [facility] DO Work Phone: Start: 11-13-2021 ambulatory Jose Martin Jones II Facility: Start: 11-10-2021 ambulatory KM Turner Facilit y: Start: 11-03-2021 Office outpatient vi sit 15 minutes Andrei Formanrance Work Phone: [facility] DO Work Phone: Start: 11-03-2021 Patient encounter procedure Da vid T [place] Work Phone: [facility] DO Work Phone: Start: 11-03-2021 ambulatory KM Turner Facilit y: Start: 09-23-2021 Chart Update Andrei Peguero ce Work Phone: [facility] DO Work Phone: Start: 09-22-[address] Andrei portillo [place] Facility:[id number] Start: 09-21-2021 Patient encounter procedure Da vid T [place] Work Phone: [facility] [place] Work Phone: Start: 09-21-2021 ambulatory Ms. Delilah Turner Facilit y:[id number] Start: 09-14-2021 Patient encounter procedure Da vid T [place] Work Phone: [facility] DO Work Phone: Start: 09-14-2021 ambulatory Andrei Wiseman Facility: Start: 09-07-2021 Office outpatient vi sit 25 minutes Andrei Wiseman Work Phone: [facility] DO Work Phone: Start: 09-07-2021 ambulatory Jose Martin Wolfeadelastacy TERRELL Facility: Start: 08-31-2021 Patient encounter procedure Da vid Aaron [place] Work Phone: [facility] [place] Work Phone: Start: 08-31-[address] Andrei portillo [place] Facility:[id number] Start: 07-22-2021 Office consultation new/estab patient 80 min Andrei Walker [place] Work Phone: [facility] DO Work Phone: Start: 07-22-2021 Office outpatient ne w 60 minutes Andrei Walker [place] Work Phone: [facility] DO Work Phone: Start: 07-22-2021 ambulatory Andrei Wiseman Facility: Start: 12-05-2020 Encounter for prepro cedural laboratory examination DR ALLYSON SALEEM [facility] Start: 12-04-2020 End: 12-04-[address] ALLYSON SALEEM Facility:H1 Start: 12-01-2020 End: 12-02-[address] ALLYSON SALEEM Facility:H1 Start: 12-01-2020 End: 12-02-2020 Encounter for preprocedural laboratory examination DR ALLYSON SALEEM Facility:H1 Start: 11-13-2020 End: 11-13-[address] ANDREI WISEMAN Facility:[facility]1 Start: 11-11-2020 Preoperative state Andrei brooks MD Work Phone: [facility] Start: 11-10-2020 End: 11-11-[address] ANDREI WISEMAN Facility:[facility]1 Start: 11-06-2020 End: 11-07-[address] ANDREI WISEMAN Facility:[facility]1 Start: 09-15-2020 End: 09-16-[address] ANDREI WISEMAN Facility:H1 Procedures Date Procedure Procedure Detail Performing Clinician Start: 09-13-2024 Thyrotropin [Units/v olume] in Serum or Plasma Adenike 2 Start: 09-12-2024 Prothrombin time [facility] [...] Phone: Start: 03-25-2023 Plain chest X-ray MD Leung Work Phone: Start: 03-14-2023 Cv strs tst xers&/or rx cont ecg trcg only Delilah Turner [employer] CENTER RECRUITER-PHYSIOLOGICAL CHEMIST Work Phone: Start: 03-01-2023 Ecg routine ecg w/le ast 12 lds w/i&r Delilah Turner [employer] CENTER RECRUITER-PHYSIOLOGICAL CHEMIST Work Phone: Start: 02-21-2023 Ecg routine ecg w/le ast 12 lds w/i&r Delilahfabiola Turner CALL CENTER RECRUITER-PHYSIOLOGICAL CHEMIST Work Phone: Start: 02-01-2023 Adult depression scr eening assessment Andrei Wiseman MD Work Phone: Start: 01-21-2023 Echo tthrc r-t 2d w/ wom-mode compl spec&colr d Delilah Turner CALL CENTER RECRUITER-PHYSIOLOGICAL CHEMIST Work Phone: Start: 01-17-2023 Ecg routine ecg w/le ast 12 lds w/i&r Delilah Tushar Turner CALL CENTER RECRUITER-PHYSIOLOGICAL CHEMIST Work Phone: Start: 08-05-2022 Plain chest X-ray [...] surgery Baldomero SALEEM Start: 02-07-2007 Colonoscopy Allyson MCDANIEL Start: 01-27-2007 Colonoscopy Andrei adkins MD Work Phone: Start: 01-07-2005 Panniculectomy Allyson SALEEM Start: 02-07-2002 Biopsy of uterine ligament Allyson SALEEM Start: 02-07-2002 Colonoscopy Allyson MCDANIEL Start: 02-07-2002 Arianne-en-Y gastrojejunostomy Allyson SALEEM Start: 02-07-1977 Ligation of fallopian tube Allyson SALEEM Start: 02-08-1948 Tonsillectomy Allyson CESPEDES Biopsy Andrei Walker Defranc e Work Phone: Cardioversion Andrei Walker Defran ce Work Phone: Cataract surgery Andrei Walker Def sejal Work Phone: Cholecystectomy Andrei Formanr ance Work Phone: Colonoscopy Andrei Walker Defranc e Work Phone: Esophagogastrostomy, antesternal or antethoracic Andrei Walker [place] Work Phone: Comment on above: History of Gastric S urgery For Morbid Obesity Gastric Bypass; Ligation of fallopian tube D avid T [place] Work Phone: Lithotripsy Andrei Walker Defranc e Work Phone: Operation on mouth Andrei Wahl efrance Work Phone: Panniculectomy Andrei Walker Defra nce Work Phone: Tonsillectomy Andrei Walker Defran ce Work Phone: Plan of Treatment Date Care Activity Detail Author Start: 09-13-2025 Thyroid stimulating hormone measurement TSH Level [facility] Start: 08-13-2025 End: 08-13-2025 Patient encounter procedure 08/13/2025 1:00 PM EDT Office Visit [facility] [address] [place] [phone] Jerome Quick MD [address] [place] [address] [facility] Start: 08-08-2025 Depression Screening Depression Screening [facility] Start: 08-08-2025 Fall Risk Screening Fall Risk Screening [facility] Start: 08-08-2025 Medicare Annual Wellness Visit Medicare Annual Wellness Visit [facility] Start: 08-08-2025 Tobacco Screening Tobacco Screening [facility] Start: 07-26-2025 Depression Screening Depression Screening [facility] Start: 07-26-2025 Tobacco Screening Tobacco Screening [facility] Start: 05-16-2025 Tobacco Screening Tobacco Screening [facility] Start: 04-09-2025 Tobacco Screening Tobacco Screening [facility] Start: 02-24-2025 End: 07-25-2025 Aspartate aminotransferase [Enzymatic activity/volume] in Serum or Plasma by With P-5'-P Aspartate Aminotransferase Lab Routine 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 use Paroxysmal atrial fibrillation (Multi) Expected: 02/24/2025, Expires: 07/25/2025 [facility] Work Phone: Comment on above: Expected: 02/24/2025, Expires: Start: 02-24-2025 End: 07-25-2025 Basic metabolic 2000 panel - Serum or Plasma Basic Metabolic Panel Lab Routine 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 use Paroxysmal atrial fibrillation (Multi) Expected: 02/24/2025, Expires: 07/25/2025 [facility] Work Phone: Comment on above: Expected: 02/24/2025, Expires: Start: 02-24-2025 End: 07-25-2025 Thyrotropin [Units/volume] in Serum or Plasma Thyroid Stimulating Hormone Lab Routine 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 use Paroxysmal atrial fibrillation (Multi) Expected: 02/24/2025, Expires: 07/25/2025 [facility] Work Phone: Comment on above: Expected: 02/24/2025, Expires: Start: 02-14-2025 End: 02-14-2025 Patient encounter procedure 02/14/2025 1:15 PM EST Office Visit [facility] [place] [address] Jerome Quick MD [address] [place] [address] [facility] Start: 01-24-2025 Depression Screening Depression Screening [facility] Start: 01-24-2025 Fall Risk Screening Fall Risk Screening [facility] Start: 01-24-2025 Tobacco Screening Tobacco Screening [facility] Start: 01-24-2025 End: 07-25-2025 XR Chest 2 Views XR chest 2 views Imaging Routine 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 use Paroxysmal atrial fibrillation (Multi) Expected: 01/24/2025, Expires: 07/25/2025 [facility] Work Phone: Comment on above: Expected: 01/24/2025, Expires: Start: 12-15-2024 Thyroid stimulating hormone measurement TSH Level [facility] Start: 12-13-2024 Echocardiography Echocardiogram [facility] Start: 11-29-2024 End: 11-29-2024 Patient encounter procedure 11/29/2024 10:50 AM EDT Office Visit [place] [id number] [facility] [address] [place] [phone] Yvonne Haas MD [address] [facility] [place] [address] [facility] Start: 10-10-2024 End: 10-10-2024 Follow-up encounter 10/10/2024 2:00 PM EDT Follow Up Anticoagulation [facility] Medication Management [address] [place] [address] [facility] Start: 10-08-[address] [facility] Start: 10-02-2024 End: 10-02-2024 Patient encounter procedure 10/02/2024 1:30 PM EDT Appointment [facility] [address] [facility] [address] [place] [address] [facility] Start: 09-24-2024 End: 07-25-2026 US Heart Transthoracic Transthoracic Echo Limited Echocardiography Routine Cardiomyopathy, unspecified type (Multi) Chronic diastolic congestive heart failure Expected: 09/24/2024 (Approximate), Expires: 07/25/2026 [facility] Work Phone: Comment on above: Expected: 09/24/2024 (Approximate), Expi res: 07/25/2026 Start: 09-12-2024 End: 09-12-2024 Follow-up encounter 09/12/2024 2:00 PM EDT Follow Up Anticoagulation [facility] Medication Management [address] [place] [address] [facility] Start: 09-08-2024 End: 08-08-2025 CBC W Auto Differential panel - Blood CBC auto differential Lab Routine Essential hypertension Expected: 09/08/2024 (Approximate), Expires: 08/08/2025 [facility] [employer] [facility] Comment on above: Expected: 09/08/2024 (Approximate), Expi res: 08/08/2025 Start: 09-08-2024 End: 08-08-2025 Comprehensive metabolic 2000 panel - Serum or Plasma Comprehensive metabolic panel Lab Routine Essential hypertension Expected: 09/08/2024 (Approximate), Expires: 08/08/2025 [facility] [employer] Comment on above: Expected: 09/08/2024 (Approximate), Expi res: 08/08/2025 Start: 09-08-2024 End: 08-08-2025 Lipid 1996 panel - Serum or Plasma Lipid profile Lab Routine Chronic diastolic congestive heart failure (CMS-HCC) Hypothyroidism (acquired) Expected: 09/08/2024 (Approximate), Expires: 08/08/2025 [employer] Work Phone: Comment on above: Expected: 09/08/2024 (Approximate), Expi res: 08/08/2025 Start: 09-08-2024 End: 08-08-2025 Thyrotropin [Units/volume] in Serum or Plasma TSH Lab Routine Essential hypertension Expected: 09/08/2024 (Approximate), Expires: 08/08/2025 [facility] Comment on above: Expected: 09/08/2024 (Approximate), Expi res: 08/08/2025 Start: 08-15-2024 End: 08-15-2024 Follow-up encounter 08/15/2024 1:45 PM EDT Follow Up Anticoagulation [facility] Medication Management [address] [place] [address] [facility] Start: 08-14-2024 Adult BMI Screening Adult BMI Screening [facility] Start: 08-08-2024 End: 08-08-2024 Patient encounter procedure 08/08/2024 1:00 PM EDT Office Visit [facility] [address] [place], [place] [address] [phone] Jerome Quick MD [facility] [place] [address] [facility] Start: 08-04-2024 Medicare Annual Wellness Visit Medicare Annual Wellness Visit (AWV) [facility] Start: 08-03-2024 Adult BMI Screening Adult BMI Screening [facility] Start: 08-03-2024 Depression Screening Depression Screening [facility] Start: 08-03-2024 Fall Risk Screening Fall Risk Screening [facility] Start: 08-03-2024 Medicare Annual Wellness Visit Medicare Annual Wellness Visit [facility] Start: 08-03-2024 Tobacco Screening Tobacco Screening [facility] Start: 08-01-2024 End: 07-25-2025 ECG 12 Lead [facility] Work Phone: Comment on above: Expected: 08/01/2024 (Approximate), Expi res: 07/25/2025 Start: 08-01-2024 End: 08-01-2024 Professional / ancillary services management 08/01/2024 11:00 AM EDT Ancillary Procedure [facility] [address] [address] [facility] Start: 07-25-2024 End: 07-25-2025 Complete Pulmonary Function Test (Spirometry/DLCO/Lung Volumes) Complete Pulmonary Function Test (Spirometry/DLCO/Lung Volumes) PFT Routine 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 use Paroxysmal atrial fibrillation (Multi) Expected: 07/25/2024 (Approximate), Expires: 07/25/2025 [facility] Service Area Work Phone: Comment on above: Expected: 07/25/2024 (Approximate), Expi res: 07/25/2025 Start: 07-25-2024 End: 07-25-2024 Patient encounter procedure 07/25/2024 10:30 AM EDT Office Visit [facility] [address] [facility] [address] [place] [address] Yvonne Haas MD [address] [facility] [place] [address] [facility] Start: 06-29-2024 End: 06-29-2024 Follow-up encounter 06/29/2024 3:15 PM EDT Follow Up Anticoagulation [facility] Medication Management [address] [place] [address] [facility] Start: 06-18-2024 End: 06-18-2024 Follow-up encounter 06/18/2024 1:00 PM EDT Follow Up Anticoagulation [facility] Medication Management [address] [facility] [place] [address] [facility] Start: 06-01-2024 End: 06-01-2024 Follow-up encounter 06/01/2024 1:30 PM EDT Follow Up Anticoagulation [facility] Medication Management [address] [place] [address] [facility] Start: 05-27-2024 COVID-19 Vaccine ( season) COVID-19 Vaccine () [facility] Start: 05-27-2024 COVID-19 Vaccine ( season) COVID-19 Vaccine () [facility] Start: 05-16-2024 End: 05-16-2024 Follow-up encounter 05/16/2024 3:15 PM EDT Follow Up Anticoagulation [facility] Medication Management [address] [place] [address] [facility] Start: 05-09-2024 End: 05-09-2024 Follow-up encounter 05/09/2024 1:45 PM EDT Follow Up Anticoagulation [facility] Medication Management [address] [place] [address] [facility] Start: 04-30-2024 End: 04-30-2024 Follow-up encounter 04/30/2024 11:45 AM EDT Follow Up Anticoagulation [facility] Medication Management [address] [place] [address] [facility] Start: 04-16-2024 End: 04-16-2024 Follow-up encounter 04/16/2024 11:30 AM EDT Follow Up Anticoagulation [facility] Medication Management [address] [place] [address] [facility] Start: 03-22-2024 End: 03-22-2024 Follow-up encounter 03/22/2024 11:45 AM EST Follow Up Anticoagulation [facility] Medication Therapy Management [address] [place] [address] [facility] Start: 03-14-2024 End: 03-14-2024 Patient encounter procedure 03/14/2024 11:30 AM EST Appointment [facility] Pul[facility] Function [address] [place] [address] [facility] Start: 03-05-2024 End: 03-05-2024 Follow-up encounter 03/05/2024 11:45 AM EST Follow Up Anticoagulation [facility] Medication Therapy Management [address] [place] [address] [facility] Therapy [facility] Start: 02-10-2024 End: 02-10-2024 Follow-up encounter 02/10/2024 10:45 AM EST Follow Up Anticoagulation [facility] Medication Therapy Management [address] [place] [address] [facility] Start: 02-02-2024 Adult BMI Screening Adult BMI Screening [facility] Start: 02-02-2024 Depression Screening Depression Screening [facility] Start: 02-02-2024 Fall Risk Screening Fall Risk Screening [facility] Start: 02-02-2024 Tobacco Screening Tobacco Screening [facility] Start: 01-25-2024 End: 01-25-2024 Patient encounter procedure 01/25/2024 9:15 AM EST Office Visit [facility] [address] [place] [phone] Andrei Wiseman MD [address] [place] [address] [facility] Start: 01-24-2024 End: 01-24-2024 Follow-up encounter 01/24/2024 11:45 AM EST Follow Up Anticoagulation [facility] Medication Therapy Management [address] [place] [address] [facility] Start: 01-22-2024 Echocardiography Echocardiogram [facility] Start: 01-13-2024 End: 01-13-2024 Follow-up encounter 01/13/2024 11:45 AM EST Follow Up Anticoagulation [facility] Medication Therapy Management [address] [place] [address] [facility] Therapy [facility] Start: 12-30-2023 End: 12-30-2023 Follow-up encounter 12/30/2023 11:30 AM EST Follow Up Anticoagulation [facility] Medication Therapy Management [address] [place] [address] [facility] Start: 12-23-2023 End: 12-23-2023 Follow-up encounter 12/23/2023 11:30 AM EST Follow Up Anticoagulation [facility] Medication Therapy Management [address] [place] [address] [facility] Start: 12-19-2023 End: 12-19-2023 Professional / ancillary services management 12/19/2023 10:00 AM EST Ancillary Procedure [facility] [address] [place] [address] [facility] Start: 12-16-2023 End: 12-16-2023 Follow-up encounter 12/16/2023 3:15 PM EST Follow Up Anticoagulation [facility] Medication Therapy Management [address] [place] [address] [facility] Therapy [facility] Start: 12-16-2023 Subsequent hospital visit by physician 12/16/2023 2:24 PM EST Hospital Encounter [facility] [address] [place] [address] Paroxysmal atrial fibrillation (CMS-HCC) (Primary Dx) [facility] Comment on above: Paroxysmal atrial fibrillation (CMS-HCC) (Primary Dx) Start: 12-14-2023 End: 12-14-2023 Professional / ancillary services management 12/14/2023 2:00 PM EST Ancillary Procedure [facility] [address] [place] [phone] [facility] Start: 12-14-2023 End: 12-14-2023 Patient encounter procedure 12/14/2023 12:30 PM EST [facility] [address] [facility] [address] [place] [address] Dan[facility] Start: 12-13-2023 End: 12-12-2024 Complete Pulmonary Function Test (Spirometry/DLCO/Lung Volumes) Complete Pulmonary Function Test (Spirometry/DLCO/Lung Volumes) PFT Routine Paroxysmal atrial fibrillation (Multi) 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 use Expected: 12/13/2023 (Approximate), Expires: 12/12/2024 [facility] Work Phone: Comment on above: Expected: 12/13/2023 (Approximate), Expi res: 12/12/2024 Start: 12-13-2023 End: 12-12-2024 Holter monitor study Holter Or Event Child Care Education Coordinator Cardiac Services Routine PVC (premature ventricular contraction) Expected: 12/13/2023 (Approximate), Expires: 12/12/2024 [facility] Work Phone: Comment on above: Expected: 12/13/2023 (Approximate), Expi res: 12/12/2024 Start: 12-13-2023 End: 12-12-2024 Thyrotropin [Units/volume] in Serum or Plasma Thyroid Stimulating Hormone Lab Routine Paroxysmal atrial fibrillation (Multi) 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 use Expected: 12/13/2023 (Approximate), Expires: 12/12/2024 [facility] Work Phone: Comment on above: Expected: 12/13/2023 (Approximate), Expi res: 12/12/2024 Start: 12-13-2023 End: 12-12-2025 US Heart Transthoracic Transthoracic Echo Complete Echocardiography Routine Dilated cardiomyopathy (Multi) Expected: 12/13/2023 (Approximate), Expires: 12/12/2025 [facility] Service Area Work Phone: Comment on above: Expected: 12/13/2023 (Approximate), Expi res: 12/12/2025 Start: 12-09-2023 End: 12-09-2023 Follow-up encounter 12/09/2023 11:00 AM EDT Follow Up Anticoagulation [facility] Medication Therapy Management [address] [place] [address] [facility] Start: 11-30-2023 End: 11-30-2023 Follow-up encounter 11/30/2023 11:45 AM EDT Follow Up Anticoagulation [facility] Medication Therapy Management [address] [place] [address] [facility] Start: 11-18-2023 End: 11-18-2023 Follow-up encounter 11/18/2023 11:30 AM EDT Follow Up Anticoagulation [facility] Medication Therapy Management [address] [place] [address] [facility] Start: 11-11-2023 End: 11-11-2023 Follow-up encounter 11/11/2023 10:45 AM EDT Follow Up Anticoagulation [facility] Medication Therapy Management [address] [place] [address] [facility] Start: 11-08-2023 End: 11-08-2023 Follow-up encounter 11/08/2023 9:00 AM EDT Follow Up Anticoagulation [facility] Medication Therapy Management [address] [place] [address] [facility] Start: 11-04-2023 End: 11-04-2023 Follow-up encounter 11/04/2023 1:00 PM EDT Follow Up Anticoagulation [facility] Medication Therapy Management [address] [place] [address] [facility] Start: 10-31-2023 End: 10-31-2023 Clinical Support 10/31/2023 3:30 PM EDT Clinical Support [facility] Therapy Management [address] [place] [address] [facility] Start: 10-28-2023 End: 10-28-2023 Anticoagulant drug monitoring 10/28/2023 1:00 PM EDT New Anticoagulation [facility]ication Therapy Management [address] [place] [address] [facility] Start: 10-09-2023 COVID-19 Vaccine ( season) COVID-19 Vaccine () [facility] Start: 10-09-2023 Influenza vaccination Influenza Vaccine [facility] Start: 08-04-2023 End: 08-03-2024 CBC W Auto Differential panel - Blood CBC auto differential Lab Routine Essential hypertension Paroxysmal A-fib ([facility]-HCC) Expected: 08/04/2023, Expires: 08/03/2024 [facility] Comment on above: Expected: 08/04/2023, Expires: Start: 08-04-2023 End: 08-03-2024 Comprehensive metabolic 2000 panel - Serum or Plasma Comprehensive metabolic panel Lab Routine Essential hypertension Paroxysmal A-fib ([facility]-HCC) Expected: 08/04/2023, Expires: 08/03/2024 [facility] Comment on above: Expected: 08/04/2023, Expires: Start: 08-04-2023 End: 08-03-2024 Lipid 1996 panel - Serum or Plasma Lipid profile Lab Routine Essential hypertension Paroxysmal A-fib ([facility]-HCC) Expected: 08/04/2023, Expires: 08/03/2024 [facility] Comment on above: Expected: 08/04/2023, Expires: Start: 08-04-2023 End: 08-03-2024 Thyroid profile includes TSH FT4 Thyroid profile includes TSH FT4 Lab Routine Essential hypertension Paroxysmal A-fib (CMS-HCC) Expected: 08/04/2023, Expires: 08/03/2024 [facility] Comment on above: Expected: 08/04/2023, Expires: Start: 08-04-2023 End: 08-04-2023 Patient encounter procedure 08/04/2023 9:30 AM EDT Office Visit [facility] [address] [place] [phone] Andrei Wiseman MD [address] [place] [address] [facility] Start: 08-03-2023 Medicare Annual Wellness Visit Medicare Annual Wellness Visit [facility] Start: 05-24-2023 End: 05-24-2023 Patient encounter procedure 05/24/2023 9:10 AM EDT Office Visit [place] [id number] [facility] [address] [place] [address] Jose Martin Jones MD [address] [facility] [address] [place] [address] [facility] Start: 04-14-2023 COVID-19 Vaccine ( season) COVID-19 Vaccine () [facility] Start: 03-14-2023 End: 03-14-2023 Professional / ancillary services management 03/14/2023 3:00 PM EST Ancillary Procedure [facility] [address] [place] [address] [facility] Start: 03-14-2023 End: 03-14-2023 Patient encounter procedure 03/14/2023 2:15 PM EST Appointment [facility] [address] [facility] [address] [place] [phone] [facility] Start: 03-14-2023 End: 03-14-2023 Patient encounter procedure [facility] Start: 03-01-2023 End: 03-01-2024 Holter monitor study Holter Or Event Child Care Education Coordinator Cardiac Services Routine Sick sinus syndrome (CMS/HCC) Paroxysmal atrial fibrillation (CMS/HCC) Expected: 03/01/2023 (Approximate), Expires: 03/01/2024 [facility] Service Area Work Phone: Comment on above: Expected: 03/01/2023 (Approximate), Expi res: 03/01/2024 Start: 03-01-2023 End: 03-01-2025 NM Heart Perfusion W stress and W radionuclide IV Nuclear Stress Test Cardiac Nuclear Medicine Routine Other cardiomyopathy (CMS/HCC) Paroxysmal atrial fibrillation (CMS/HCC) Essential hypertension, benign Abnormal electrocardiogram (ECG) (EKG) Expected: 03/01/2023 (Approximate), Expires: 03/01/2025 [facility] Work Phone: Comment on above: Expected: 03/01/2023 (Approximate), Expi res: 03/01/2025 Start: 03-01-2023 End: 03-01-2023 Patient encounter procedure 03/01/2023 12:30 PM EST Office Visit [facility] [address] [place] [address] Delilah Turner, CALL CENTER RECRUITER-PHYSIOLOGICAL CHEMIST [address] [place] [address] [facility] Start: 02-21-2023 End: 02-22-2024 Basic metabolic 2000 panel - Serum or Plasma Basic Metabolic Panel Lab Routine Cardiomyopathy, unspecified type (CMS/HCC) 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 use Sick sinus syndrome (CMS/HCC) Expected: 02/21/2023 (Approximate), Expires: 02/22/2024 [facility] Work Phone: Comment on above: Expected: 02/21/2023 (Approximate), Expi res: 02/22/2024 Start: 02-21-2023 End: 02-22-2024 Thyrotropin [Units/volume] in Serum or Plasma Thyroid Stimulating Hormone Lab Routine Cardiomyopathy, unspecified type (CMS/HCC) 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 use Sick sinus syndrome (CMS/HCC) Expected: 02/21/2023 (Approximate), Expires: 02/22/2024 [facility] Work Phone: Comment on above: Expected: 02/21/2023 (Approximate), Expi res: 02/22/2024 Start: 02-21-2023 End: 02-21-2023 Patient encounter procedure 02/21/2023 10:30 AM EST Office Visit [facility] [address] [place] [address] Delilah Turner, CALL CENTER RECRUITER-PHYSIOLOGICAL CHEMIST [address] [place] [address] [facility] Start: 02-08-2023 COVID-19 Vaccine (4 - Pfizer series) COVID-19 Vaccine (4 - Pfizer series) [facility] Start: 01-21-2023 End: 01-21-2023 Patient encounter procedure 01/21/2023 10:45 AM EST Appointment [facility] [address] [place] [address] [facility] Start: 01-17-2023 End: 01-18-2024 Basic metabolic 2000 panel - Serum or Plasma Basic Metabolic Panel Lab Routine Cardiomyopathy, unspecified type (CMS/HCC) Expected: 01/17/2023 (Approximate), Expires: 01/18/2024 [facility] Work Phone: Comment on above: Expected: 01/17/2023 (Approximate), Expi res: 01/18/2024 Start: 01-17-2023 End: 01-18-2024 Holter monitor study Holter Or Event Child Care Education Coordinator Cardiac Services Routine Paroxysmal atrial fibrillation (CMS/HCC) Expected: 01/17/2023 (Approximate), Expires: 01/18/2024 [facility] Work Phone: Comment on above: Expected: 01/17/2023 (Approximate), Expi res: 01/18/2024 Start: 01-17-2023 End: 01-18-2024 Natriuretic peptide B [Mass/volume] in Blood B-Type Natriuretic Peptide Lab Routine Cardiomyopathy, unspecified type (CMS/HCC) Expected: 01/17/2023 (Approximate), Expires: 01/18/2024 [facility] Work Phone: Comment on above: Expected: 01/17/2023 (Approximate), Expi res: 01/18/2024 Start: 01-17-2023 End: 01-17-2025 [facility] Transthoracic Transthoracic Echo (TTE) Complete Echocardiography Routine Cardiomyopathy, unspecified type (CMS/HCC) Abnormal electrocardiogram (ECG) (EKG) Expected: 01/17/2023 (Approximate), Expires: 01/17/2025 [facility] Service Area Work Phone: Comment on above: Expected: 01/17/2023 (Approximate), Expi res: 01/17/2025 Start: 01-17-2023 FUV, Provider: Delilah Nassar, Status: Pen, Time: 9:30 AM FUV, Provider: Delilah Nassar, Status: Pen, Time: 9:30 AM [facility] [address] DO Work Phone: Start: 10-08-2022 Influenza [facility] Start: 10-08-2022 Screening for osteoporosis Bone Density Scan [facility] Start: 08-31-2022 Echocardiography Echocardiogram [facility] Start: 08-06-2022 FUV, Provider: Jose Martin Jones, Status: Pen, Time: 2:00 PM FUV, Provider: Jose Martin Jones, Status: Pen, Time: 2:00 PM [facility] 250 DO Work Phone: Start: 11-10-2021 HOLTER MON, Provider: PARKER DUGAN ART OBJECTS REPAIRER 1,[id number], Status: Pen, Time: 10:00 AM HOLTER MON, Provider: PARKER DUGAN ART OBJECTS REPAIRER 1,[id number], Status: Pen, Time: 10:00 AM [facility] [address] DO Work Phone: Start: 10-21-2021 FUV, Provider: Delilah Nassar, Status: Pen, Time: 9:00 AM FUV, Provider: Delilah Nassar, Status: Pen, Time: 9:00 AM -[facility] 250 DO Work Phone: Start: 10-08-2021 Screening for osteoporosis Bone Density Scan [facility] Start: 09-21-2021 STRESS NUC, Provider: TANISHA HHVI NUCLEAR 01,[id number], Status: Pen, Time: 12:00 PM STRESS NUC, Provider: TANISHA HHVI NUCLEAR 01,[id number], Status: Pen, Time: 12:00 PM -[facility] 250 DO Work Phone: Start: 09-14-2021 EKG, Provider: PARKER DUGAN ART OBJECTS REPAIRER 1,[id number], Status: Pen, Time: 11:00 AM EKG, Provider: PARKER DUGAN ART OBJECTS REPAIRER 1,[id number], Status: Pen, Time: 11:00 AM -[facility] 250 DO Work Phone: Start: 09-07-2021 FUV, Provider: Delilah Nassar, Status: Pen, Time: 11:30 AM FUV, Provider: Delilah Nassar, Status: Pen, Time: 11:30 AM -[facility] 250 DO Work Phone: Start: 08-31-2021 ECHO, Provider: TANISHA HHVI ULTRASOUND 01,[id number], Status: Pen, Time: 10:45 AM ECHO, Provider: TANISHA HHVI ULTRASOUND 01,[id number], Status: Pen, Time: 10:45 AM -[facility] [address] DO Work Phone: Start: 2020 RSV High Risk: (Elderly (60+) or Population) (1 - 1-dose 75+ series) RSV High Risk: (Elderly (60+) or Population) (1 - 1-dose 75+ series) [facility] Start: 01-28-2012 Screening for malignant neoplasm of colon Colonoscopy [employer] [facility] Start: 09-05-1967 DTaP/Tdap/Td Vaccines (1 - Tdap) DTaP/Tdap/Td Vaccines (1 - Tdap) [facility] Start: 1964 DTaP,Tdap and Td Vaccines (1 - Tdap) DTaP,Tdap and Td Vaccines (1 - Tdap) [facility] Start: 09-05-1963 Adult BMI Follow Up Plan Adult BMI Follow Up Plan [facility] Start: 09-05-1963 Diabetes mellitus screening Diabetes Screening [facility] Start: 09-05-1963 Hepatitis C screening Hepatitis C Screening [facility] Start: 1945 Creatinine measurement Creatinine Level [facility] Start: 1945 Lipid panel Lipid Panel [facility] Start: 1945 Medicare Annual Wellness Visit Medicare Annual Wellness Visit (AWV) [facility] Start: 1945 Potassium measurement Potassium Level [facility] Start: 1945 Skin Cancer Screening Skin Cancer Screening [facility] Start: 1945 Thyroid stimulating hormone measurement TSH Level [facility] End: 08-03-2024 DBT Breast - bilateral screening Mammography screening bilateral with CAD Imaging Routine Encounter for screening mammogram for malignant neoplasm of breast 1 Occurrences starting 08/04/2023 until 08/03/2024 [employer] Work Phone: Comment on above: 1 Occurrences starting 08/04/2023 until 08/03/2024 ECG 12 Lead ECG 12 Lead ECG Routine Paroxysmal atrial fibrillation (CMS/HCC) 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 use 01/17/2023 10:04 AM [email or web address] [facility] Work Phone: ECG 12 Lead ECG 12 Lead ECG Routine Sick sinus syndrome (CMS/HCC) 02/21/2023 10:30 AM [email or web address] [facility] Work Phone: ECG 12 Lead ECG 12 Lead ECG Routine 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 use 03/01/2023 12:30 PM [email or web address] [facility] Work Phone: Patient Education Shortness of b reath International Normalized Ratio Anxiety, Adult ED [facility] Work Phone: Patient referral [facility] Work Phone: End: 01-21-2023 Heart Transthoracic [facility] Service Area Work Phone: Comment on above: Once for 1 Occurrences starting 01/22/20 until 01/21/2023 End: 10-02-2024 Heart Transthoracic [facility] Service Area Work Phone: Comment on above: Once for 1 Occurrences starting 10/03/19 until 10/02/2024 Immunizations Immunization Date Immunization Notes Care Provider Fa [facility] 11-27-2023 influenza, high dose seasonal, preservative-free Pm 1 [facility] 11-27-2023 influenza virus vacc ine, unspecified formulation Pmh 1 [facility] 12-14-2022 Influenza, High-dose , Quadrivalent Pmh 1 [facility] 08-20-2022 zoster vaccine recombinant Andrei Wiseman MD Work Phone: [facility] 04-01-2022 zoster vaccine recombinant Andrei Wiseman Work Phone: [facility] 250 DO Work Phone: 11-10-2021 influenza, high dose seasonal, preservative-free Delilah Turner CALL CENTER RECRUITER-PHYSIOLOGICAL CHEMIST Work Phone: [facility] Work Phone: 11-10-2021 influenza, seasonal, injectable Andrei Wiseman Work Phone: [facility] 250 DO Work Phone: Comment on above: Series: 11-10-2021 influenza virus vacc ine, unspecified formulation Andrei Wiseman MD Work Phone: [facility] 10-23-2021 Fluzone High-Dose Quadrivalent 0.7 ML Intramuscular Suspension Prefilled Syringe Andrei Wiseman Work Phone: [facility] 250 DO Work Phone: 10-23-2021 influenza, high dose seasonal, preservative-free Delilah Turner CALL CENTER RECRUITER-PHYSIOLOGICAL CHEMIST Work Phone: [facility] Work Phone: 10-23-2021 Moderna COVID-19 Biv al Booster 50 MCG/0.5ML Intramuscular Suspension Andrei Wiseman Work Phone: [facility] 250 DO Work Phone: 12-19-2020 Pfizer-BioNTech COVI D-19 Vacc 30 MCG/0.3ML Intramuscular Suspension Andrei Wiseman Work Phone: [facility] 12-10-2020 Fluzone High-Dose Quadrivalent 0.7 ML Intramuscular Suspension Prefilled Syringe Andrei Wiseman Work Phone: [facility] 776 DO Work Phone: 12-10-2020 influenza, high dose seasonal, preservative-free Delilah Johnny CALL CENTER RECRUITER-PHYSIOLOGICAL CHEMIST Work Phone: [facility] 04-22-2020 Pfizer-BioNTech COVI D-19 Vacc 30 MCG/0.3ML Intramuscular Suspension Andrei Wiseman Work Phone: [facility] 04-07-2020 SARS-CoV-2 (COVID-19 ) mRNA BNT-162b2 vax Allyson SALEEM [facility] 04-01-2020 Pfizer-BioNTech COVI D-19 Vacc 30 MCG/0.3ML Intramuscular Suspension Andrei Wiseman Work Phone: [facility] 03-10-2020 SARS-CoV-2 (COVID-19 ) mRNA BNT-162b2 vax Allyson SALEEM [facility] 11-11-2019 AS03 adjuvant Andrei Wiseman MD Work Phone: [facility] 11-11-2019 Fluad Quadrivalent 0 .5 ML Intramuscular Prefilled Syringe Andrei Wiseman Work Phone: [facility] 11-11-2019 Seasonal trivalent influenza vaccine, adjuvanted, preservative free Andrei Wiseman MD Work Phone: [facility] 12-11-2018 Influenza, injectabl e, Madin Mita Canine Kidney, quadrivalent with preservative Anderi Walker Defrance Work Phone: [facility] 12-11-2018 Influenza, injectabl e, Madin Mita Canine Kidney, preservative free, quadrivalent Andrei Wiseman MD Work Phone: [facility] 11-24-2017 AS03 adjuvant Andrei Wiseman MD Work Phone: [facility] 11-24-2017 influenza virus vacc ine, unspecified formulation Andrei Wiseman MD Work Phone: [facility] 11-24-2017 pneumococcal polysaccharide vaccine, 23 valent Andrei Wiseman Work Phone: [facility] 11-24-2017 Seasonal trivalent influenza vaccine, adjuvanted, preservative free Andrei Walker Defrance Work Phone: [facility] 11-16-2016 influenza virus vacc ine, unspecified formulation Andrei Wiseman MD Work Phone: [facility] 11-16-2016 influenza, high dose seasonal, preservative-free Andrie Walker Defrance Work Phone: [facility] 11-16-2016 pneumococcal conjuga te vaccine, 13 valent Andrei Walker Defrance Work Phone: [facility] 11-20-2014 influenza, injectabl e, quadrivalent, preservative free Andrei Walker Defrance Work Phone: [facility] 11-11-2014 influenza virus vacc ine, unspecified formulation Andrei Wiseman MD Work Phone: [facility] 11-11-2014 influenza, high dose seasonal, preservative-free Andrei Walker Defrance Work Phone: [facility] 250 DO Work Phone: 01-10-2014 influenza virus vacc ine, unspecified formulation Andrei Wiseman MD Work Phone: [facility] 01-10-2014 influenza, high dose seasonal, preservative-free Andrei Wiseman Work Phone: [facility] 250 DO Work Phone: 07-26-2012 pneumococcal polysaccharide vaccine, 23 valent Andrei Wiseman Work Phone: [facility] 250 DO Work Phone: Payers Date Payer Category Payer Self-pay [id number] 2018 Commercial Managed C are - POS [employer] [id number] 2018 Medicare supplementa l policy (as second payer) [employer] SENIOR SUPPLEMENT [id number] 5 2018 Private Health Insurance [id number] .[id number] .[id number] 2010 Medicare [id number] 1.13.647 .[id number] 1959 Medicare [id number] 1959 Private Health Insurance [facility] [id number] 1945 Unknown [id number] 2.16.840.1.980738.3.579 .2.593 1945 Unknown [id number] 2.16.840.1.825966.3.579 .2.593 1945 Unknown [id number] 2.16.840.1.996894.3.579 .2.593 1945 Unknown [id number] 2.16.840.1.645707.3.579 .2.593 1945 Unknown [id number] 2.16.840.1.562072.3.579 .2.593 1945 Unknown [id number] 2.16840.1.993194.3.579 .2.593 1945 Unknown [id number] 2.16.840.1.548843.3.579 .2.1068 1945 Unknown [id number] 2.16840.1.173710.3.579 .2.1068 1945 Unknown [id number] 2.16.840.1.966042.3.579 .2.1068 1945 Unknown [id number] 2.16840.1.352445.3.579 .2.356 1945 Unknown [id number] 2.16.840.1.920778.3.579 .2.356 1945 Unknown [id number] 2.16.840.1.294264.3.579 .2.356 1945 Unknown [id number] 2.16.840.1.919840.3.579 .2.356 1945 Unknown [id number] 2.16.840.1.393462.3.579 .2.356 1945 Unknown [id number] 2.16.840.1.002130.3.579 .2.356 1945 Unknown [id number] 2.16.840.1.880935.3.579 .2.356 1945 Unknown [id number] 2.16.840.1.951680.3.579 .2.128 1945 Unknown [id number] 2.16.840.1.587086.3.579 .2.128 1945 Unknown [id number] 2.16.840.1.122620.3.579 .2.1285 1945 Unknown [id number] 2.16.840.1.218044.3.579 .2.727 1945 Unknown [id number] 2.16.840.1.697677.3.579 .2.72 1945 Unknown [id number] 2.16.840.1.144331.3.579 .2.727 1945 Unknown [id number] 2.16.840.1.359466.3.579 .2.1285 1945 Unknown [id number] 2.16.840.1.882529.3.579 .2.128 1945 Unknown [id number] 2.16.840.1.681179.3.579 .2.128 1945 Unknown [id number] 2.16.840.1.245193.3.579 .2.128 1945 Unknown [id number] 2.16.840.1.438000.3.579 .2.1285 1945 Unknown [id number] 2.16.840.1.159387.3.579 .2.128 1945 Unknown [id number] 2.16.840.1.184318.3.579 .2.1285 1945 Unknown [id number] 2.16840.1.346743.3.579 .2.1285 1945 Unknown [id number] 2.840.1.639131.3.579 .2.1285 1945 Unknown [id number] 2.840.1.099291.3.579 .2.1285 1945 Unknown [id number] 2.840.1.768997.3.579 .2.1285 1945 Unknown [id number] 2.840.1.980626.3.579 .2.1285 1945 Unknown [id number] 2.840.1.989988.3.579 .2.1285 1945 Unknown [id number] 2.0.1.593417.3.579 .2.1285 1945 Unknown [id number] 2.840.1.346941.3.579 .2.1285 1945 Unknown [id number] 2.840.1.134584.3.579 .2.1285 1945 Unknown [id number] 2.840.1.531920.3.579 .2.1285 1945 Unknown [id number] 2.0.1.620001.3.579 .2.1285 1945 Unknown [id number] 2.840.1.917372.3.579 .2.1285 1945 Unknown [id number] 2.840.1.676889.3.579 .2.1285 1945 Unknown [id number] 2.840.1.818579.3.579 .2.1285 1945 Unknown [id number] 2.840.1.955082.3.579 .2.1285 1945 Unknown [id number] 2.16840.1.302867.3.579 .2.1285 1945 Unknown [id number] 2.16.840.1.900960.3.579 .2.1285 1945 Unknown [id number] 2.16.840.1.148342.3.579 .2.1285 1945 Unknown [id number] 2.16840.1.454572.3.579 .2.1285 1945 Unknown [id number] 2.16.840.1.283588.3.579 .2.1285 1945 Unknown [id number] 2.840.1.401717.3.579 .2.1285 1945 Unknown [id number] 2.840.1.955064.3.579 .2.1285 1945 Unknown [id number] 2.840.1.005729.3.579 .2.1285 1945 Unknown [id number] 2.840.1.974411.3.579 .2.1285 1945 Unknown [id number] 2.840.1.393142.3.579 .2.1285 1945 Unknown [id number] 2.840.1.604747.3.579 .2.1285 1945 Unknown [id number] 2.840.1.314805.3.579 .2.1285 1945 Unknown [id number] 2.16840.1.193544.3.579 .2.1243 1945 Unknown [id number] 2.16.840.1.592267.3.579 .2.1243 1945 Unknown [id number] 2.16840.1.257751.3.579 .2.1243 1945 Unknown [id number] 2.16.840.1.918691.3.579 .2.1244 1945 Unknown [id number] 2.16.840.1.403337.3.579 .2.727 1945 Unknown [id number] 2.16.840.1.652989.3.579 .2.1246 1945 Unknown [id number] 2.16.840.1.862917.3.579 .2.1246 Medicare [id number] Unknown Unknown HCAP/HFA/FAP Active [id number] Unknown [id number] 2.16.840.1.765986.3.579 .2.531 Unknown [id number] 2.16.840.1.142944.3.579 .2.531 Unknown [id number] 2.16.840.1.573640.3.579 .2.531 Unknown [id number] 2.16.840.1.114384.3.579 .2.531 Social History Date Type Detail Facility Start: 01-17-2023 End: 08-01-2024 Occasional alcohol use Occasional alcohol use [facility] 250 DO Work Phone: Comment on above: Occasional soda 3 A WEEK OCCASIONAL TEA; Start: 1945 Sex Assigned At Female [facility] Start: 09-13-2022 End: 01-14-2023 Tobacco smoking status Never smoked tobacco (finding) [facility] Start: 01-01-2022 Tobacco smoking status Never [facility] Start: 01-17-2023 End: 08-01-2024 Sex Assigned At Female [facility] Start: 01-19-2022 End: 01-14-2023 Tobacco use and exposure Smokeless tobacco non-user [facility] Work Phone: Start: 01-17-2023 Alcohol intake Current drinke r of alcohol (finding) [facility] Work Phone: Start: 01-17-2023 Alcohol Comment almost none [facility] Work Phone: Start: 1945 Sex Assigned At Not on file U [facility] Work Phone: Start: 01-07-2023 End: 12-13-2023 Exposure to SARS-CoV-2 (event) Not sure [facility] Start: 02-21-2023 End: 08-01-2024 Alcohol intake Lifetime non-drinker (finding) [facility] Work Phone: Start: 01-25-2024 End: 08-08-2024 Alcoholic beverage intake Current non-drinker of alcohol (finding) Novavax Start: 09-12-2014 End: 11-13-2018 Sex Female (finding) Novavax Sexual Orientation [facility] Goals Date Patient Goal Desired Activity /State Personal health goal Comment on above: Formatting of this n ote might be different from the original. Evaluation of progress towards goal: return home independent like prior to admission Functional Status Date Assessment Result Facility 09-16-2023 Functional Status N/A [facility] 09-13-2022 Functional Status N/A [facility] Clinical Notes 10-08-2020 to 09-17-2024 Olinda Elena, [facility] - 09/12/2024 2:00 PM Payton Elena, [facility] - 08/15/2024 1:45 PM David Quick MD - 08/08/2024 1:00 PM EDTTelephone [...] including vitamins, herbs, eye drops, creams, and nqka-fku-aertkfn medicines. Any problems you or family members [...] provider tells you to take them. Taking laqz-rkk-zytzcwj medicines, vitamins, herbs, and supplements. Tests You [...] Follow these instructions at home: Medicines Take qoxi-hat-cnqravl and prescription medicines only as told by [...] provider. Document Revised: 10/07/2021 Document Reviewed: 09/05/2020 [employer] Patient Education 2023 [employer]. 09/17/2024 11:06:38 Urethral Dilation Urethral Dilation Urethral [...] including vitamins, herbs, eye drops, creams, and njyy-dbr-rafpisx medicines. Any problems you or family members [...] unless your provider tells you to. Taking fpvr-lio-usieqdr medicines, vitamins, herbs, and supplements. General instructions [...] Follow these instructions at home: Medicines Take qlka-bte-kdfrtjo and prescription medicines only as told by [...] actions to prevent or treat constipation: ?Take pbmc-zep-hxovuvr or prescription medicines. ?Eat foods that are [...] provider. Document Revised: 11/18/2022 Document Reviewed: 11/18/2022 [employer] Patient Education 2023 [employer]. 09/17/2024 11:02:54 Dietary Guidelines to Help Prevent [...] include: ?8 oz (237 mL) of milk, lgsouds-uwuzwfisxwvu-ysrre milk, and calcium-fortifiedfruit juice. Calcium-fortified means that [...] ?Spinach (cooked), rhubarb, beets, sweet potatoes, and Bangladeshi chard. ?Peanuts. ?Potato chips, palestinian fries, and baked potatoes with skin on. ?Nuts and nut products. ?Chocolate. If you regularly take a diuretic medicine, make sure to eat at least 1 or 2 servings of fruits or vegetables that are high in potassium each day. These include: ?Avocado. ?Banana. ?[place], prune, carrot, or tomato juice. ?Baked potato. [...] magnesium, fish oil, or vitamin B6. Take ldvu-avf-wscneoi and prescription medicines only as told by [...] Casseroles. Pizza. Lasagna. Frozen meals. Potato chips. Macedonian fries. The items listed above may not [...] provider. Document Revised: 05/06/2022 Document Reviewed: 05/06/2022 [employer] Patient Education 2023 [employer]. Follow Up Care 09/16/2023 11:13:59 With:HARPER DE LA ROSA, Allyson Montenegro, URL Address: [address] [place] [address] [place] [address] When: Unknown Comments:sched cysto/UD [facility] 09-17-2024 Note Patient Education Nephrology Dietary Guidelines [...] ? 8 oz (237 mL) of milk, yinqwdp-rnwlxwmcupie-sevhx milk, and calcium-fortifiedfruit juice. Calcium-fortified means that [...] Spinach (cooked), rhubarb, beets, sweet potatoes, and Bangladeshi chard. ? Peanuts. ? Potato chips, palestinian fries, and baked potatoes with skin on. ? Nuts and nut products. ? Chocolate. ??? If you regularly take a diuretic medicine, make sure to eat at least 1 or 2 servings of fruits or vegetables that are high in potassium each day. These include: ? Avocado. ? Banana. ? [place], prune, carrot, or tomato juice. ? Baked [...] fish oil, or vitamin B6. ??? Take gtnw-nwx-vwegzlv and prescription medicines only as told by your health (more content not included)... [facility] 09-12-2024 History of Present illness Narrative 15 minute macw-mw-gtgm follow-up anticoagulation appointment. INR performed in office [...] [facility] 09/12/24 1404 documented in this encounter [facility] [employer] 08-15-2024 History of Present illness Narrative 15 minute ozdh-ny-rusp follow-up anticoagulation appointment. INR performed in office [...] RPH 08/15/24 1343 documented in this encounter [facility] 08-08-2024 History of Present illness Narrative [...] Do you have a durable power of contracts attorney?: (!) No Cognitive Screening Do you [...] for Medicare annual wellness exam Paroxysmal A-fib ([facility]) Rhythm controlled. 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 Yeast infection - clotrimazole-betamethasone (LOTRISONE) cream; [...] after 6 mo documented in this encounter Novavax 08-03-2024 Miscellaneous Notes Patient was on an antibiotic last week. She now believes she has a yeast infection. Patient asking if medication can be sent to [facility]. 1 dose of diflucan ordered. documented in this encounter [facility] 08-03-2024 Telephone encounter Note Patient was on an antibiotic last week. She now believes she has a yeast infection. Patient asking if medication can be sent to [facility]. [facility] 08-03-2024 Telephone encounter Note 1 dose of diflucan ordered. [facility] 08-01-2024 History of Present illness Narrative [...] in office today documented in this encounter [facility] Work Phone: 07-26-2024 History of Present illness Narrative Received BPA for DDI between warfarin and Medrol Dosepack. Dose and duration not expected to significantly impact INR, no warfarin dose adjustments at this time. Also prescribed Augmentin which does not interact with warfarin. Heriberto Parra RPH 07/26/24 9882 documented in this encounter [facility] 07-26-2024 History of Present illness Narrative [address] [facility] [id number] Patient: Eduardo Howard Date of : 1945 [...] List Items Addressed This Visit Paroxysmal A-fib ([facility]) (Chronic) Relevant Medications metoprolol tartrate (LOPRESSOR) 25 mg tablet Pulmonary emboli ([facility]) (Chronic) Other Visit Diagnoses Rhinopharyngitis - Primary [...] Diagnosis Date Arthritis Atrial fibrillation Bowel obstruction ([facility]) Chronic diastolic congestive heart failure (CMS-HCC) 03/09/2019 Chronic kidney disease H/O gastric bypass HL (hearing loss) left hearing aid Hypertension Pulmonary embolism ([facility]) Shortness of breath Visual impairment glasses Past Surgical History: Procedure Laterality Date BREAST BIOPSY Right 2007 STEREOTACTIC BX BENIGN CARDIAC CATHETERIZATION CATARACT EXTRACTION COLONOSCOPY EGD N/A 03/05/2019 Performed by Lonnie Fields DO at [facility] EGD N/A 02/08/2019 Performed by Lonnie Fields DO at [facility] GASTRIC BYPASS INJECTION STEROID INTERMEDIATE JOINT UPPER Right 05/16/2024 Performed by Matthew Damon MD at [facility] LAPAROSCOPIC CHOLECYSTECTOMY N/A 02/02/2019 Performed by Lonnie Fields DO at [facility] LITHOTRIPSY PANNICULECTOMY TONSILLECTOMY TOOTH EXTRACTION TUBAL LIGATION [...] JEROME QUICK MD documented in this encounter [facility] 07-25-2024 History of Present illness Narrative HPI [...] Limited 7. Sick sinus syndrome (Multi) 8. USP current use of anticoagulant therapy 9. PVC (premature ventricular contraction) 10. BMI 32.0-32.9,adult 11. Never smoked cigarettes Scribe Attestation By signing my name below, Isaias Diane Wahl LPN , Mananibe attest that this documentation has been prepared [...] discussion and plan. documented in this encounter [facility] Work Phone: 07-25-2024 Instructions Diane Hwang LPN [...] be sent through Care Everywhere.Heart Healthy Diet (Gibraltarian)documented in this encounter [facility] Work Phone: 07-18-2024 History of Present illness Narrative 15 minute bbxk-um-mdla follow-up anticoagulation appointment. INR performed in office [...] persists or worsens. Olinda Elena RPH 07/18/24 1345 documented in this encounter [facility] 06-19-2024 History of Present illness Narrative 15 minute ponw-jx-giwb follow-up anticoagulation appointment. INR performed in office [...] RPH 06/19/24 0913 documented in this encounter [facility] 06-07-2024 History of Present illness Narrative 15 minute fuub-oc-stfe follow-up anticoagulation appointment. INR performed in office [...] bleeding/bleeding that persists or worsens. Olinda Elena [facility] 06/07/24 1428 documented in this encounter [facility] 05-18-2024 History of Present illness Narrative 15 minute ccrz-hz-dzym follow-up anticoagulation appointment. INR performed in office [...] RPH 05/18/24 1430 documented in this encounter [facility] 05-09-2024 History of Present illness Narrative 15 minute uvjg-mf-dapo follow-up anticoagulation appointment. INR performed in office [...] that persists or worsens. Olinda Elena RPH 05/09/24 1343 documented in this encounter [facility] 04-30-2024 History of Present illness Narrative 15 minute ntgj-xk-ojpb follow-up anticoagulation appointment. INR performed in office [...] that persists or worsens. Olinda Elena RPH 04/30/24 1309 documented in this encounter [facility] 04-16-2024 History of Present illness Narrative 15 minute uqhz-sm-hbbt follow-up anticoagulation appointment. INR performed in office [...] that persists or worsens. Olinda Elena RPH 04/16/24 1140 documented in this encounter [facility] 03-26-2024 History of Present illness Narrative 15 minute zvyy-oz-nppu follow-up anticoagulation appointment. INR performed in office [...] that persists or worsens. Olinda Elena RPH 03/26/24 1338 documented in this encounter [facility] [employer] [facility] 03-05-2024 History of Present illness Narrative 15 minute uxeb-yd-dwcc follow-up anticoagulation appointment. INR performed in office [...] that persists or worsens. Olinda Elena RPH 03/05/24 1152 documented in this encounter [facility] 02-20-2024 Note XR CHEST 2 VWS PROCEDURE: CHEST, TWO VIEWS (PA and Lateral), 02/20/2024 12:27 PM CLINICAL INDICATION: 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 use; Paroxysmal atrial fibrillation (CMS-HCC) COMPARISON: Chest 2 views 10/23/2020 IMPRESSION: 1. No acute cardiopulmonary disease. 2. Cardiac silhouette is mildly enlarged, stable. No pulmonary vascular congestion. Finalized by Osbaldo Oconnor MD on 02/20/2024 1:42 PM [facility] 02-20-2024 History of Present illness Narrative 15 minute islm-on-xhme follow-up anticoagulation appointment. INR performed in office [...] bleeding/bleeding that persists or worsens. Olinda Elena [facility] 02/20/24 1215 documented in this encounter [facility] 02-02-2024 History of Present illness Narrative 15 minute zgzj-ni-uvnm follow-up anticoagulation appointment. INR performed in office [...] bleeding/bleeding that persists or worsens. Olinda Elena [facility] 02/02/24 1121 documented in this encounter [facility] 01-13-2024 History of Present illness Narrative 15 minute jyab-oa-foen follow-up anticoagulation appointment. INR performed in office [...] RPH 01/13/24 1159 documented in this encounter [facility] 12-30-2023 History of Present illness Narrative 15 minute hwfg-hm-qewk follow-up anticoagulation appointment. INR performed in office [...] bleeding/bleeding that persists or worsens. Olinda Elena [facility] 12/30/23 1132 documented in this encounter [facility] 12-23-2023 History of Present illness Narrative 15 minute menh-xa-hhdh follow-up anticoagulation appointment. INR performed in office [...] bleeding/bleeding that persists or worsens. Olinda Elena [facility] 12/23/23 1123 documented in this encounter [facility] 12-13-2023 History of Present illness Narrative Subjective [...] currently under control on losartan and spironolactone 7-ygxw-tbycnwb intolerance leading to significant bradycardia. Will avoid [...] benign 6. Sick sinus syndrome (Multi) 7. USP current use of anticoagulant therapy 8. 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 use 9. Never smoked cigarettes 10. BMI 33.0-33.9,adult Scribe Attestation By signing my name below, Silvia Esparza LPN , Scribe attest that this documentation has been [...] discussion and plan. documented in this encounter [facility] Work Phone: 12-13-2023 Instructions Silvia Fowler LPN [...] up per routine documented in this encounter [facility] Work Phone: 12-09-2023 History of Present illness Narrative 15 minute gclb-do-jzqw follow-up anticoagulation appointment. INR performed in office [...] RPH 12/09/23 1125 documented in this encounter [facility] 12-01-2023 Hospital Discharge instructions Additional Instructions Please follow-up at the Coumadin clinic and discussed that your INR here was subtherapeutic at 1.6. [facility] Work Phone: 11-30-2023 History of Present illness Narrative 15 minute orbc-om-fpzg follow-up anticoagulation appointment. INR performed in office [...] RPH 11/30/23 1552 documented in this encounter [facility] 11-18-2023 History of Present illness Narrative 15 minute iimg-pc-dvuz follow-up anticoagulation appointment. INR performed in office [...] and increase weekly warfarin dose to 2.5mg Mon/Tue/Fri, 1.25 mg AODs. Check INR in 12 day(s). Patient verbalizes understanding of anticoagulant dosing instructions and information discussed. Dosing regimen, counseling, and follow-up appointment were provided to the patient. Patient reminded to call with questions or any medication changes. Patient instructed to seek medical attention if any major bleeding/bleeding that persists or worsens. Adi Watters RPH 11/18/23 1138 documented in this encounter [facility] 11-11-2023 History of Present illness Narrative 15 minute owuq-ki-wbdd follow-up anticoagulation appointment. INR performed in office [...] RPH 11/11/23 1059 documented in this encounter [facility] 11-08-2023 History of Present illness Narrative 15 minute zrcf-fy-sixn follow-up anticoagulation appointment. INR performed in office [...] bleeding/bleeding that persists or worsens. Olinda Elena [facility] 11/08/23 0934 documented in this encounter [facility] 11-04-2023 History of Present illness Narrative 15 minute wlpx-ha-vzdx follow-up anticoagulation appointment. INR performed in office [...] RPH 11/04/23 1322 documented in this encounter [facility] 10-31-2023 History of Present illness Narrative 15 minute bdfe-db-uqia follow-up anticoagulation appointment. INR performed in office [...] a few 5 mg doses. (5 mg Sun/, 2.5 mg AOD would be 22.5 mg/week). [...] RPH 10/31/23 1619 documented in this encounter [facility] [employer] [facility] 10-28-2023 History of Present illness Narrative 30 minute jqkh-kv-sadj new anticoagulation appointment. INR performed in office [...] [x] Medication list up-to-date Communication [x] Notifying [facility]TM of any major changes with health, diet, medications, recent hospitalizations or upcoming procedures and having patient notify other providers that they are on warfarin Warfarin and diet concerns [x] Vitamin K effects Lifestyle [x] Alcohol consumption affect on INR [x] Tobacco use affect on INR Adi Watters RPH 10/28/23 1428 documented [facility] History of Present illness Narrative [facility] Medication Therapy Management received a new referral from Dr. Jacquelin Haas on 10/24/2023 at 1:33 pm. The information below is outlined from the referral: Demographics [facility] 1945 female [facility] clinic location / home health agency: [facility] Anticoagulation Details Indication: Paroxysmal Atrial [...] be discussed in depth during the initial wptw-fi-koet visit with a [facility] clinical pharmacist and/or during the initial phone [...] states that she was not approved from [facility]. Note on 10/16 states that patient is ok with switching to warfarin and would like to use [place] [facility]. No dosing nor tablet strength is provided on fax. Her predicted CHADS-VASc score is 7 (age-2, sex-1, CHF-1, HTN-1, hx VTE-2) so bridging would be recommended for any procedures. Called Dr. Haas's office (P: [phone]) at [facility]. Left VM on nurse's line requesting a call back to confirm that warfarin has not yet been prescribed and if patient can get more Eliquis samples for bridging to warfarin. Noted that aligner typewriter calculated a high CHADS-VASc score and that bridging would likely be preferred. Called patient at [phone] (home) 10/25/23 11:50 AM and she reports [...] 5 mg daily tonight. Script sent to [facility] in [place] with request for it to be filled today. Patient scheduled for initial INR appt at [facility] on Tue10/28/23. Alisa Hamilton RPH 10/25/23 1208 Mam[facility] from [facility] (P: [phone], option 4). She is returning a call [...] Dr. Haas know plan. Informed her that aligner typewriter will return a call to patient and advise her that bridging with Eliquis is not needed. Called patient 1:26 PM and advised her to stop Eliquis when she starts taking warfarin. She v/u. Alisa Hamilton RPH 10/25/23 1327 documented in this encounter [facility] 09-16-2023 Hospital Discharge instructions Patient Education 09/16/2023 [...] include: ?8 oz (237 mL) of milk, pwteorl-miegnxyotfti-nilly milk, and calcium-fortifiedfruit juice. Calcium-fortified means that [...] ?Spinach (cooked), rhubarb, beets, sweet potatoes, and Bangladeshi chard. ?Peanuts. ?Potato chips, palestinian fries, and baked potatoes with skin on. ?Nuts and nut products. ?Chocolate. If you regularly take a diuretic medicine, make sure to eat at least 1 or 2 servings of fruits or vegetables that are high in potassium each day. These include: ?Avocado. ?Banana. ?[place], prune, carrot, or tomato juice. ?Baked potato. [...] magnesium, fish oil, or vitamin B6. Take wqqv-tdr-rlnwhep and prescription medicines only as told by [...] Casseroles. Pizza. Lasagna. Frozen meals. Potato chips. Macedonian fries. The items listed above may not [...] provider. Document Revised: 05/06/2022 Document Reviewed: 05/06/2022 [employer] Patient Education 2022 [employer]. Follow Up Care 09/13/2022 11:22:10 With:HARPER DE LA ROSA, Allyson Montenegro, URL Address: [address] [place] [id number] When: Unknown [facility] 08-04-2023 History of Present illness Narrative Images from the original note were not included. [id number] [place] [id number] Subjective: Eduardo Howard is a 77 y.o. female who presents for a Medicare Annual Wellness exam. 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 Preoperative clearance 11/11/2020 Essential hypertension 03/03/2020 Chronic diastolic congestive heart failure ([facility]) 03/09/2019 Pulmonary emboli ([facility]) 03/03/2019 Shortness of breath 02/16/2019 PUD (peptic ulcer disease) 02/08/2019 Paroxysmal A-fib ([facility]) 02/01/2019 Nephrolithiasis 07/21/2017 H/O gastric bypass 07/21/2017 Past Medical History: Diagnosis Date Arthritis Atrial fibrillation Bowel obstruction ([facility]) Chronic diastolic congestive heart failure ([facility]) 03/09/2019 Chronic kidney disease H/O gastric bypass HL (hearing loss) left hearing aid Hypertension Pulmonary embolism ([facility]) Shortness of breath Visual impairment glasses Past Surgical History: Procedure Laterality Date BREAST BIOPSY Right 2007 STEREOTACTIC BX BENIGN CARDIAC CATHETERIZATION CATARACT EXTRACTION COLONOSCOPY EGD N/A 03/05/2019 Performed by Lonnie Fields DO at [facility] EGD N/A 02/08/2019 Performed by Lonnie Fields DO at [facility] GASTRIC BYPASS LAPAROSCOPIC CHOLECYSTECTOMY N/A 02/02/2019 Performed by Lonnie Fields DO at [facility] LITHOTRIPSY PANNICULECTOMY TONSILLECTOMY TOOTH EXTRACTION TUBAL LIGATION [...] profile includes TSH FT4; Future Paroxysmal A-fib (CMS-HCC) - CBC auto differential; Future - Comprehensive metabolic panel; Future - Lipid profile; Future - Thyroid profile includes TSH FT4; Future Chronic diastolic congestive heart failure ([facility]) H/O gastric bypass Encounter for screening mammogram for malignant neoplasm of breast - Mammography screening bilateral with CAD; Future Acoustic neuroma ([facility] Single subsegmental pulmonary embolism without acute cor pulmonale ([facility]) Follow Up: Fasting labs and mammogram ordered recheck in 6m Pt is trying lose weight documented in this encounter [facility] 08-04-2023 Instructions Andrei Wiseman MD - 08/04/2023 [...] services: Not applicable documented in this encounter [facility] 05-11-2023 Miscellaneous Notes Molinaoger requesting refill of Pantoprazole documented in this encounter [facility] 05-11-2023 Telephone encounter Note Molinaoger requesting refill of Pantoprazole [facility] 03-01-2023 Evaluation + Plan note Associated Problem(s): BMI 34.0-34.9,adult Reviewed the merits of healthy lifestyle choices on overall cardiovascular health. [facility] Work Phone: 03-01-2023 Evaluation + Plan note Associated Problem(s): USP current use of anticoagulant therapy CHADS VASc 5 low-dose Eliquis Unable to tolerate full dose Eliquis due to persistent vaginal bleeding [facility] Work Phone: 03-01-2023 Miscellaneous Notes Associated Problem(s): BMI 34.0-34.9,adult Reviewed the merits of healthy lifestyle choices on overall cardiovascular health. 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 CHADS VASc [...] 35%, 2014 cath EF 45%) Functional class III stage [...] of the month documented in this encounter [facility] Work Phone: 03-01-2023 Evaluation + Plan note [...] Maintained on magnesium, Most recent potassium 4.9 [facility] Work Phone: 03-01-2023 Evaluation + Plan note Associated Problem(s): Paroxysmal atrial fibrillation (CMS/HCC) EKG in office bigeminy, underlying sinus rhythm January 2023 Holter no recurrent PAF [facility] Work Phone: 03-01-2023 Evaluation + Plan note Associated Problem(s): Mild CAD 2013 cardiac cath trivial coronary artery disease September 2021 MPI no ischemia FC III fatigue and shortness of breath Daily activity less than 4 METS due to symptoms [facility] Work Phone: 03-01-2023 Evaluation + Plan note Associated Problem(s): Essential hypertension, benign optimal off high-dose Toprol [facility] Work Phone: 03-01-2023 Evaluation + Plan note [...] to afford Jardiance: Jan 2023 QRS 104 [facility] Work Phone: 03-01-2023 Evaluation + Plan note Associated Problem(s): 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 use Amiodarone start date September 07, 2021 EKG in office bigeminy, QTc 474 Surveillance testing has been scheduled towards the end of the month [facility] Work Phone: 03-01-2023 History of Present illness [...] no prior syncopal episodes. She denies any wlhc-tud-crkyaxl medications, no energy drinks, no diet pills. [...] towards the end of the month Cardiomyopathy (CMS/[facility]) HFrEF 30-35% Jan 2023 TTE ( September [...] benign optimal off high-dose Toprol Mild CAD 2013 cardiac cath trivial coronary artery disease September 2021 MPI no ischemia FC III fatigue and shortness of breath Daily activity less than 4 METS due to symptoms Paroxysmal atrial fibrillation ([facility]) EKG in office bigin, underlying sinus rhythm January 2023 Holter no recurrent PAF Sick sinus syndrome ([facility]) January 2023 Holter average heart rate 46 17.9% PVC burden Feb 21 2023: EKG sinus bradycardia with first-degree AV block at 31 bpm. Previously maintained on Toprol 200 mg daily; following Holter, dose was weaned down to 150 mg x 1 week, was on Toprol 100mg at time of OV. Toprol discontinued. Mar 01 2022[facility] Denies any dizziness, lightheadedness. No prior syncopal episodes. 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 Jones after testing Delilah Turner MSN, CALL CENTER RECRUITER-PHYSIOLOGICAL CHEMIST, PMHNP-[facility] Please excuse any errors in grammar or translation related to this dictation. Voice recognition software was utilized to prepare this document. documented in this encounter [facility] Work Phone: 03-01-2023 Instructions LUCI Guido - [...] Jones after testing documented in this encounter [facility] Work Phone: 02-22-2023 Evaluation + Plan note Associated Problem(s): BMI 34.0-34.9,adult Reviewed the merits of healthy lifestyle choices on overall cardiovascular health. 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 [facility] Work Phone: 02-22-2023 Evaluation + Plan note Associated Problem(s): Paroxysmal atrial fibrillation (CMS/HCC) EKG in office sinus bradycardia January 2023 Holter no recurrent PAF [facility] Work Phone: 02-22-2023 Evaluation + Plan note Associated Problem(s): Mild CAD 2014 cardiac cath trivial coronary artery disease September 2021 MPI no ischemia [facility] Work Phone: 02-22-2023 Evaluation + Plan note Associated Problem(s): Essential hypertension, benign Optimal in office [facility] Work Phone: 02-22-2023 Evaluation + Plan note Associated Problem(s): Cardiomyopathy (CMS/HCC) HFrEF 30-35% Jan 2023 TTE ( September 2021 MPI EF 48%: August 2021 TTE 30 to 35%, 2014 cath EF 45%) Functional class II-3 stage C GDMT: High-dose Toprol - needs stopped due to profound bradycardia Losartan Aldactone Entersto: no insurance coverage, unable to afford Jardiance: Jan 2023 QRS 104 [facility] Work Phone: 02-22-2023 Evaluation + Plan note Associated Problem(s): 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 use Amiodarone start date September 07, 2021 EKG in office sinus bradycardia, QTc 383 Surveillance testing has been scheduled towards the end of the month [facility] Work Phone: 02-21-2023 History of Present illness [...] seen in the office in 1 week. 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 ASTRONOMY TEACHER one week 3. Labs (chem6, TSH) Delilah Turner MSN, LUCI, PMHNP-[facility] Please excuse any errors in grammar or translation related to this dictation. Voice recognition software was utilized to prepare this document. documented in this encounter [facility] Work Phone: 02-21-2023 Instructions LUCI Guido - [...] contact the office if new symptoms arise. ASTRONOMY TEACHER one week 3. Labs (chem6, TSH) documented in this encounter [facility] Work Phone: 02-13-2023 Miscellaneous Notes Hal[place] requesting refill of Losartan documented in this encounter [facility] 02-13-2023 Telephone encounter Note Halimar requesting refill of Losartan [facility] 02-01-2023 History of Present illness Narrative Images from the original note were not included. [id number] [facility] [id number] SUBJECTIVE: Patient ID: Eduardo Howard is a 77 y.o. female. 77 o WF with depression worse lately and found that 20mg fluoxetine helpled better x 2 d, also yrte no longer working, working with cardiology for [...] Try kristina generic documented in this encounter Novavax 01-17-2023 Evaluation + Plan note Associated Problem(s): BMI 34.0-34.9,adult Reviewed the merits of healthy lifestyle choices on overall cardiovascular health. 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 Associated Problem(s): USP current use of anticoagulant therapy CHADS VASc 5 low-dose Eliquis Unable to tolerate full dose Eliquis due to persistent vaginal bleeding Associated Problem(s): Mild CAD 2014 cardiac cath [...] completed July 2022 documented in this encounter [facility] Work Phone: 01-17-2023 Evaluation + Plan note Associated Problem(s): Mild CAD 2014 cardiac cath trivial coronary artery disease September 2021 MPI no ischemia [email or web address] [facility] Work Phone: 01-17-2023 Evaluation + Plan note Associated Problem(s): Essential hypertension, benign Optimal in office [facility] Work Phone: 01-17-2023 Evaluation + Plan note Associated Problem(s): Cardiomyopathy (CMS/HCC) Heart failure improved EF 48% September 2021 MPI (August 2021 TTE 30 to 35%, 2013 cath EF 45%) Functional class II-3 stage C GDMT: High-dose Toprol Losartan Aldactone No prior Jardiance, last creatinine 1.55 Will repeat echocardiogram to reassess EF. Return to clinic to transition to Entresto and initiate Jardiance if warranted. [facility] Work Phone: 01-17-2023 Evaluation + Plan note Associated Problem(s): 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 use Amiodarone start date September 07, 2021 EKG in office maintaining sinus bradycardia with PVCs, QTc 451 Surveillance testing completed July 2022 [facility] Work Phone: 01-17-2023 History of Present illness [...] MPI (August 2021 TTE 30 to 35%, 2013 cath EF 45%) Functional class II-3 stage C GDMT: High-dose Toprol Losartan Aldactone No prior Jardiance, last creatinine 1.55 Will repeat echocardiogram to reassess EF. [facility] and initiate Jardiance if warranted. 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 ASTRONOMY TEACHER one month 5. 24 hour holter Delilah Turner MSN, TRUNG-PHYSIOLOGICAL CHEMIST, PMHNP-BC [facility] Please excuse any errors in grammar or translation related to this dictation. Voice recognition software was utilized to prepare this document. documented in this encounter [facility] Work Phone: 01-17-2023 Instructions LUCI Guido - [...] contact the office if new symptoms arise. ASTRONOMY TEACHER one month documented in this encounter [facility] Work Phone: 09-13-2022 Hospital Discharge instructions Patient Education 09/13/2022 11:04:19 Kidney Stones, Carz-sz-[id number] Kidney Stones Kidney stones are rock-like masses [...] Follow these instructions at home: Medicines Take [id number] and prescription medicines only as told by [...] provider. Document Revised: 09/28/2021 Document Reviewed: 09/28/2021 [employer] Patient Education 2022 [employer]. Follow Up Care 06/09/2022 09:35:46 With:HARPER DE LA ROSA, Allyson Montenegro, URL Address: [facility] [address] , [place] [address]- [phone] When: Unknown [facility] Rema 10-08-2020 Note HNO ID: [id number] Author: Phil Brooks MD Service: ? Author Type: Physician Type: Progress Notes Filed: 10/07/2020 10:56 PM Note Text: PATIENT NAME: Hernando Howard CLINIC NO.: [id number] ATTENDING PHYSICIAN: Phil Brooks MD DATE OF [...] Breast: No palpa (more content not included)... [facility] Chief complaint Narrative - Reported SELF REFERRAL RE-ESTABLISH ISSUE WITH MEDS. [facility] [address] DO Work Phone: Chief complaint Narrative - Reported SELF REFERRAL RE-ESTABLISH ISSUE WITH MEDS. [facility] Work Phone: Evaluation + Plan note Future Appointments Appointment Date:09/16/2023 10:15:00 AM Scheduled Provider:Allyson SALEEM MD Location:[facility] Appointment Type:URO Office Visit [facility] Evaluation + Plan note Future Appointments Appointment Date:09/16/2023 10:15:00 AM Scheduled Provider:Allyson SALEEM MD Location:[facility] Appointment Type:URO Office Visit Diagnostic Tests PendingUrine Culture 09/22/22 [facility] Evaluation + Plan note Future Appointments Appointment Date:09/17/2024 10:15:00 AM Scheduled Provider:Allyson SALEEM MD Location:[facility] Appointment Type:URO Office Visit [facility] Evaluation + Plan note Future Appointments Appointment Date:10/23/2024 02:30:00 PM Scheduled Provider:Allyson SALEEM MD Location[facility] Appointment Type:URO Procedure 15 min [facility] Evaluation note No assessment inform ation available [facility] Work Phone: Evaluation note Diagnosis Paroxysmal atrial fibrillation (CMS/HCC)- Primary Atrial fibrillation 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 use USP current use of anticoagulant therapy Cardiomyopathy, unspecified type (CMS/HCC) Mild CAD Essential hypertension, benign BMI 34.0-34.9,adult Abnormal electrocardiogram (ECG) (EKG) documented in this encounter [facility] Work Phone: Evaluation note* Diagnosis Cardiomyopathy, unspecified type (CMS/HCC) Abnormal electrocardiogram (ECG) (EKG) documented in this encounter [facility] Work Phone: Evaluation note* Diagnosis Cardiomyopathy, unspecified type (CMS/HCC) Abnormal electrocardiogram (ECG) (EKG) documented in this encounter [facility] Work Phone: Evaluation note* Diagnosis Cardiomyopathy, unspecified type (CMS/HCC)- Primary Paroxysmal atrial fibrillation (CMS/HCC) Atrial fibrillation 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 use Mild CAD Essential hypertension, benign USP current use of anticoagulant therapy BMI 34.0-34.9,adult Sick sinus syndrome (CMS/HCC) Sinoatrial node dysfunction documented in this encounter [facility] Work Phone: Evaluation note* Diagnosis Other cardiomyopathy (CMS/HCC)- Primary Sick sinus syndrome (CMS/HCC) Sinoatrial node dysfunction Paroxysmal atrial fibrillation (CMS/HCC) Atrial fibrillation 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 use 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 Mild CAD Essential hypertension, benign BMI 34.0-34.9,adult Abnormal electrocardiogram (ECG) (EKG) documented in this encounter [facility] Work Phone: Evaluation note* Diagnosis Paroxysmal atrial fibrillation (Multi)- Primary Atrial fibrillation 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 use USP current use of anticoagulant therapy Cardiomyopathy, unspecified type (Multi) Mild CAD Essential hypertension, benign BMI 34.0-34.9,adult Abnormal electrocardiogram (ECG) (EKG) Cardiomyopathy, unspecified type (Multi)- Primary Paroxysmal atrial fibrillation (Multi) Atrial fibrillation 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 use Mild CAD Essential hypertension, benign USP current use of anticoagulant therapy BMI 34.0-34.9,adult Sick sinus syndrome (Multi) Sinoatrial node dysfunction Other cardiomyopathy- Primary Sick sinus syndrome (Multi) Sinoatrial node dysfunction Paroxysmal atrial fibrillation (Multi) Atrial fibrillation 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 use 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 Mild CAD Essential hypertension, benign BMI 34.0-34.9,adult Abnormal electrocardiogram (ECG) (EKG) Paroxysmal atrial fibrillation (Multi)- Primary Atrial fibrillation PVC (premature ventricular contraction) Other premature beats Mild CAD Essential hypertension, benign Dilated cardiomyopathy (Multi) Other primary cardiomyopathies Sick sinus syndrome (Multi) Sinoatrial node dysfunction USP current use of anticoagulant therapy 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 use Never smoked cigarettes BMI 33.0-33.9,adult Obesity, Class I, BMI 30-34.9 documented in this encounter [facility] Work Phone: Evaluation note* Diagnosis Paroxysmal atrial fibrillation (Multi)- Primary Atrial fibrillation 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 use USP current use of anticoagulant therapy Cardiomyopathy, unspecified type (Multi) Mild CAD Essential hypertension, benign BMI 34.0-34.9,adult Abnormal electrocardiogram (ECG) (EKG) Cardiomyopathy, unspecified type (Multi)- Primary Paroxysmal atrial fibrillation (Multi) Atrial fibrillation 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 use Mild CAD Essential hypertension, benign USP current use of anticoagulant therapy BMI 34.0-34.9,adult Sick sinus syndrome (Multi) Sinoatrial node dysfunction Other cardiomyopathy- Primary Sick sinus syndrome (Multi) Sinoatrial node dysfunction Paroxysmal atrial fibrillation (Multi) Atrial fibrillation 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 use USP current use of anticoagulant therapy Mild CAD Essential hypertension, benign BMI 34.0-34.9,adult Abnormal electrocardiogram (ECG) (EKG) Dilated cardiomyopathy (Multi) Other primary cardiomyopathies documented in this encounter [facility] Work Phone: Evaluation note* Diagnosis Paroxysmal A-fib (CMS-HCC)- Primary [facility] Diagnosis Paroxysmal A-fib (CMS-HCC)- Primary [facility]* Diagnosis Essential hypertension- Primary Unspecified essential hypertension Paroxysmal A-fib (CMS-HCC) Chronic diastolic congestive heart failure (CMS-HCC) H/O gastric bypass Nephrolithiasis Calculus of kidney documented [facility]* Diagnosis Routine general medical examination at a health care facility- Primary Essential hypertension Unspecified essential hypertension Paroxysmal A-fib (CMS-HCC) Chronic diastolic congestive heart failure (CMS-HCC) H/O gastric bypass Encounter for screening mammogram for malignant neoplasm of breast 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 Single subsegmental pulmonary embolism without acute cor pulmonale (CMS-HCC) documented [facility] encounter [facility]* Diagnosis Atrial fibrillation, unspecified type (CMS-HCC)- Primary documented in [facility] encounter [facility]* Diagnosis Atrial fibrillation, unspecified type (CMS-HCC)- Primary documented in [facility] encounter [facility]* Diagnosis Atrial fibrillation, unspecified type (CMS-HCC)- Primary documented in [facility] encounter [facility]* Diagnosis Atrial fibrillation, unspecified type (CMS-HCC)- Primary documented in [facility] encounter [facility]* Diagnosis Paroxysmal A-fib (CMS-HCC)- Primary Paroxysmal atrial fibrillation (CMS-HCC)- Primary Atrial fibrillation documented in this encounter [facility]* Diagnosis Paroxysmal A-fib (CMS-HCC)- Primary documented in [facility] encounter [facility]* Diagnosis Atrial fibrillation, unspecified type (CMS-HCC)- Primary documented in [facility] encounter [facility]* Diagnosis Paroxysmal A-fib (CMS-HCC)- Primary Single subsegmental pulmonary embolism without acute cor pulmonale (CMS-HCC) documented in this encounter [facility]* Diagnosis Paroxysmal atrial fibrillation (Multi)- Primary Atrial fibrillation 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 use USP current use of anticoagulant therapy Cardiomyopathy, unspecified type (Multi) Mild CAD Essential hypertension, benign BMI 34.0-34.9,adult Abnormal electrocardiogram (ECG) (EKG) Cardiomyopathy, unspecified type (Multi)- Primary Paroxysmal atrial fibrillation (Multi) Atrial fibrillation 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 use Mild CAD Essential hypertension, benign 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 BMI 34.0-34.9,adult Sick sinus syndrome (Multi) Sinoatrial node dysfunction Other cardiomyopathy- Primary Sick sinus syndrome (Multi) Sinoatrial node dysfunction Paroxysmal atrial fibrillation (Multi) Atrial fibrillation 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 use 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 Mild CAD Essential hypertension, benign BMI 34.0-34.9,adult Abnormal electrocardiogram (ECG) (EKG) Chronic systolic heart failure- Primary Essential hypertension, benign Cardiomyopathy, unspecified type (Multi) 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 use Paroxysmal atrial fibrillation (Multi) Atrial fibrillation Chronic diastolic congestive heart failure 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 PVC (premature ventricular contraction) Other premature beats BMI 32.0-32.9,adult Never smoked cigarettes Obesity, Class I, BMI 30-34.9 documented in this encounter [facility] Work Phone: Evaluation note* Diagnosis Rhinopharyngitis- Primary Acute nasopharyngitis (common cold) Paroxysmal A-fib (CMS-HCC) Single subsegmental pulmonary embolism without acute cor pulmonale (CMS-HCC) [facility] [employer] [facility]* Diagnosis Paroxysmal atrial fibrillation (Multi)- Primary Atrial fibrillation 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 use 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 Cardiomyopathy, unspecified type (Multi) Mild CAD Essential hypertension, benign BMI 34.0-34.9,adult Abnormal electrocardiogram (ECG) (EKG) Cardiomyopathy, unspecified type (Multi)- Primary Paroxysmal atrial fibrillation (Multi) Atrial fibrillation 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 use Mild CAD Essential hypertension, benign USP current use of anticoagulant therapy BMI 34.0-34.9,adult Sick sinus syndrome (Multi) Sinoatrial node dysfunction Other cardiomyopathy- Primary Sick sinus syndrome (Multi) Sinoatrial node dysfunction Paroxysmal atrial fibrillation (Multi) Atrial fibrillation 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 use 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 Mild CAD Essential hypertension, benign BMI 34.0-34.9,adult Abnormal electrocardiogram (ECG) (EKG) 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 use Paroxysmal atrial fibrillation (Multi) Atrial fibrillation documented in this encounter [facility] Work Phone: Evaluation note* Diagnosis Yeast infection- Primary documented in this encounter [facility] [employer] SystemEvaluation note* Diagnosis Encounter for Medicare annual wellness exam- Primary Paroxysmal A-fib ([facility]-HCC) Single subsegmental pulmonary embolism without acute cor pulmonale ([facility]-HCC) Chronic diastolic congestive heart failure ([facility]) Essential hypertension Unspecified essential hypertension Acoustic neuroma ([facility]-HCC) Benign neoplasm of cranial nerves Yeast infection PUD (peptic ulcer disease) Peptic ulcer, unspecified site, unspecified as acute or chronic, without mention of hemorrhage, perforation, or obstruction Hypothyroidism (acquired) Unspecified hypothyroidism documented in this encounter [facility] [employer] [facility]* Diagnosis Paroxysmal A-fib (CMS-HCC)- Primary documented in this encounter [facility] [employer] SystemEvaluation note* Diagnosis PUD (peptic ulcer disease) Peptic ulcer, unspecified site, unspecified as acute or chronic, without mention of hemorrhage, perforation, or obstruction documented in this encounter [facility] [employer] SystemEvaluation note* Diagnosis Paroxysmal atrial fibrillation (Multi)- Primary Atrial fibrillation 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 use USP current use of anticoagulant therapy Cardiomyopathy, unspecified type (Multi) Mild CAD Essential hypertension, benign BMI 34.0-34.9,adult Abnormal electrocardiogram (ECG) (EKG) Cardiomyopathy, unspecified type (Multi)- Primary Paroxysmal atrial fibrillation (Multi) Atrial fibrillation 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 use Mild CAD Essential hypertension, benign USP current use of anticoagulant therapy BMI 34.0-34.9,adult Sick sinus syndrome (Multi) Sinoatrial node dysfunction Other cardiomyopathy- Primary Sick sinus syndrome (Multi) Sinoatrial node dysfunction Paroxysmal atrial fibrillation (Multi) Atrial fibrillation 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 use USP current use of anticoagulant therapy Mild CAD Essential hypertension, benign BMI 34.0-34.9,adult Abnormal electrocardiogram (ECG) (EKG) Cardiomyopathy, unspecified type (Multi) Chronic diastolic congestive heart failure documented in this encounter [facility] Work Phone: History of Present illness Narrative* Patient is referred for management after long absence. In the past she was found to have trivial coronary atherosclerosis and mild impairment of left ventricular systolic function. Subsequently, though, she was lost to follow-up and she has been getting her care in [facility] from the [place] [facility] group * Recently, her lead electrical controls engineer became ill and she has not had any continuity of care ever since. She had been plagued by paroxysmal atrial fibrillation and it appears that the attending lead electrical controls engineer placed her on flecainide. This would lead [...] diet and weight loss in the interim. -[facility] [address] DO Work Phone: History of Present illness Narrative* Patient is referred for management after long absence. In the past she was found to have trivial coronary atherosclerosis and mild impairment of left ventricular systolic function. Subsequently, though, she was lost to follow-up and she has been getting her care in [facility] from the [place] cardiology group * Recently, her lead electrical controls engineer became ill and she has not had any continuity of care ever since. She had been plagued by paroxysmal atrial fibrillation and it appears that the attending lead electrical controls engineer placed her on flecainide. This would lead [...] diet and weight loss in the interim. [facility] Work Phone: History of Present illness Narrative* [...] medication regimen. She denies medication side effects. [email or web address] [employer] Work Phone: History of Present illness Narrative* [...] medication regimen. She denies medication side effects. [employer] [employer] Work Phone: History of Present illness Narrative* [...] medication regimen. She denies medication side effects. [employer] [employer] Work Phone: History of Present illness Narrative* [...] merits of diet exercise and weight loss. [place] [address] DO Work Phone: History of Present illness Narrative* Olinda Montenegro Eakin, [facility] - 12/16/2023 3:15 PM EST 15 minute [id number] follow-up anticoagulation appointment. INR performed in office [...] and encouraged patient to speak with her lead electrical controls engineer about changing to Farxiga. Plan: Patient instructed [...] bleeding/bleeding that persists or worsens. Olinda Elena Felipa 12/16/23 1449 [facility] Narrative No data available for this section [facility] Hospital Discharge instructions No data available for this section [facility] InstructionsNot on filedocumented in this encounter [facility] on filedocumented in this encounter [facility]* Attachments The following attachments cannot be sent through Care Everywhere. * Heart Failure, Adult (Gibraltarian) documented in this encounterPro[facility]ica [facility] SystemInstructionsNot on file documented in this encounterProMedica Health SystemInstructionsNot on file documented in this encounterProMedica Health SystemInstructionsNot on file documented in this encounterProMedica Health SystemInstructionsNot on file documented in this encounterProMedica Health SystemInstructionsNot on file documented in this encounterProMediaz Health SystemInstructionsNot on file documented in this encounterProMediaz Health SystemInstructionsNot on file documented in this encounterProMediaz Health SystemInstructionsNot on file documented in this [facility]Pro[facility] SystemProgress note No data available for this section [facility] reason for referral (narrative)* Consultation (Routine) - Authorized Specialty Diagnoses / Procedures Referred By Jenyn walker Referred To Contact Cardiology Diagnoses Sick sinus syndrome (CMS/HCC) Procedures Follow Up In Cardiology Delilah Turner, CALL CENTER RECRUITER-PHYSIOLOGICAL CHEMIST [address] [facility] [address] [place] [address] Referral ID Status Reason Start Date Expiration Date V isits Requested Visits Authorized [id number] Authorized 02/21/2023 02/21/2024 1 1 * Cardiovascular (Routine) - Authorized Specialty Diagnoses / Procedures Referred By Contac t Referred To Contact Diagnoses Sick sinus syndrome (CMS/HCC) Procedures ECG 12 Lead Delilah Turner APRN-PHYSIOLOGICAL CHEMIST [address] [facility] [address], [place] [address] [place] [id number] Referral ID Status Reason Start Date Expiration Date V isits Requested Visits Authorized [id number] Authorized 02/21/2023 02/21/2024 1 1 [facility] Work Phone: reason for visit Narrative* CV Imaging (Routine) - Authorized Specialty Diagnoses / Procedures [facility] Referred To Contact Cardiology Diagnoses Dilated cardiomyopathy (Multi) Procedures Transthoracic Echo Complete NE ECHO TTHRC R-T 2D W/WOM-MODE COMPL SPEC&COLR D Yvonne Haas MD [address] [facility] [address], [address] [address] Phone: tel: fax: Referral ID Status Reason Start Date Expiration Date Visits Requested Visits Authorized [id number] Authorized Perform Procedure 12/13/2023 12/12/2024 1 1 [facility] Work Phone: reason for visit Narrative* CV Imaging (Routine) - Authorized Specialty Diagnoses / Procedures [facility] Referred To Contact Cardiology Diagnoses Other cardiomyopathy Chronic diastolic congestive heart failure Procedures Transthoracic Echo Limited NE ECHO TRANSTHORC R-T 2D W/WO M-MODE REC F-UP/LMTD NE DOPPLER ECHO COLOR FLOW VELOCITY MAPPING NE DOPPLER ECHO PULSE WAVE W/SPECTRAL F-UP/LMTD STD Yvonne Haas MD [address] [facility] [address], [place] [address] [place] [id number] Phone: tel: fax: Referral ID Status Reason Start Date Expiration Date Visits Requested Visits Authorized [id number] Authorized Perform Procedure 07/25/2024 07/25/2025 1 1 [facility] Work Phone: Summary Purpose Family History No [...] maintenance of NSR. Amiodarone Order sent to [facility] for testing due ARIEL - baselinesVIRBRITTANY HOWARD is being seen for a 3 month follow-up of.Amiodarone Order sent to [facility] for testing due in April Chief Complaint and Reason for Visit Chief Complaint i48.0 [id number] Chief Complaint I42.9;Z79.899;I49.5 Chief Complaint I42.9;Z79.899;I49.5 i48.0 z79.899 i48.0 z79.899 Chief Complaint weakness,trouble fabricio athing Reason for Referral Specialty Diagnoses / Procedures Referred By Contac t Referred To Contact Diagnoses 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 use Procedures ECG 12 Lead Delilah [facility] 2, Alex [address] [place] [address] Referral ID Status Reason Start Date Expiration Date V isits Requested Visits Authorized [id number] Authorized 03/01/2023 02/29/2024 1 1 Specialty Diagnoses / Procedures Referred By Contac t Referred To Contact Radiology Diagnoses Other cardiomyopathy (CMS/HCC) Paroxysmal atrial fibrillation (CMS/HCC) Essential hypertension, benign Abnormal electrocardiogram (ECG) (EKG) Procedures Nuclear Stress Test CHG MYOCARDIAL SPECT MULTIPLE STUDIES CHG MYOCARDIAL SPECT SINGLE STUDY AT REST OR STRESS [facility] 2, [address] [address] Referral ID Status Reason Start Date Expiration Date V isits Requested Visits Authorized [id number] Pending Review 03/01/2023 02/29/2024 5 5 Specialty Diagnoses / Procedures Referred By Contac t Referred To Contact Cardiology Diagnoses Sick sinus syndrome (CMS/HCC) Paroxysmal atrial fibrillation (CMS/HCC) Procedures Holter Or Event Child Care Education Coordinator Delilah [facility] 2, [address] [address] Referral ID Status Reason Start Date Expiration Date V isits Requested Visits Authorized [id number] Pending Review 03/01/2023 02/29/2024 1 1 Specialty Diagnoses / Procedures Referred By Contac t Referred To Contact Cardiology Diagnoses Paroxysmal atrial fibrillation (CMS/HCC) Procedures Holter Or Event Child Care Education Coordinator Delilah Turner [facility] 2, [address] [address] Referral ID Status Reason Start Date Expiration Date V isits Requested Visits Authorized [id number] Pending Review 01/17/2023 01/17/2024 1 1 Specialty Diagnoses / Procedures Referred By Contac t Referred To Contact Cardiology Diagnoses Cardiomyopathy, unspecified type (CMS/HCC) Procedures Follow Up In Cardiology Delilah Turner, CALL CENTER RECRUITERPHYSIOLOGICAL CHEMIST [facility] 2, [address] [address] Referral ID Status Reason Start Date Expiration Date V isits Requested Visits Authorized [id number] Authorized 01/17/2023 01/17/2024 1 1 Specialty Diagnoses / Procedures Referred By Contac t Referred To Contact Diagnoses Paroxysmal atrial fibrillation (CMS/HCC) 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 use Procedures ECG 12 Lead Delilah Turner, [facility] 2, [address] [address] Referral ID Status Reason Start Date Expiration Date V isits Requested Visits Authorized [id number] Pending Review 01/17/2023 01/17/2024 1 1 Specialty Diagnoses / Procedures Referred By Contac t Referred To Contact Cardiology Diagnoses Cardiomyopathy, unspecified type (CMS/HCC) Abnormal electrocardiogram (ECG) (EKG) Procedures Transthoracic Echo (TTE) Complete NE ECHO TRANSTHORC R-T 2D W/WO M-MODE REC F-UP/LMTD NE DOP ECHOCARD COLOR FLOW VELOCITY MAPPING NE DOP ECHOCARD PULSE WAVE W/SPECTRAL F-UP/LMTD STD Delilah Turner, CALL CENTER RECRUITERPHYSIOLOGICAL CHEMIST [facility] [facility] 2, [address] [address] Referral ID Status Reason Start Date Expiration Date Visits Requested Visits Authorized [id number] Pending Review Perform Procedure 3 01/17/2024 1 1 Additional Source Comments INFORMATION SOURCE (unrecogn ized section and content) DATE CREATED AUTHOR 12/08/2020 [facility] DATE CREATED AUTHOR AUTHOR'S ORGANIZ ATION 03/13/2021 [facility] DATE CREATED AUTHOR AUTHOR'S ORGANIZ ATION 10/20/2021 [facility] DATE CREATED AUTHOR AUTHOR'S ORGANIZ ATION 01/28/2022 [facility] DATE CREATED AUTHOR AUTHOR'S ORGANIZ ATION 01/28/2022 [facility] DATE CREATED AUTHOR AUTHOR'S ORGANIZ ATION 02/03/2024 [facility] DATE CREATED AUTHOR AUTHOR'S ORGANIZ ATION 08/10/2024 [facility] DATE CREATED AUTHOR AUTHOR'S ORGANIZ ATION 09/18/2024 [facility] DATE CREATED AUTHOR AUTHOR'S ORGANIZ ATION 09/18/2024 [facility] DATE CREATED AUTHOR AUTHOR'S ORGANIZ ATION 09/22/2024 [facility] DATE CREATED AUTHOR AUTHOR'S ORGANIZ ATION 09/25/2024 [place] [facility] DATE CREATED AUTHOR AUTHOR'S ORGANIZ ATION 10/04/2024 [facility] Care Teams (unrecognized sec tion and content) Team Status: Active Member Role Status Dates Andrei Wiseman MD Primary Care Provider Active Team Status: Inactive Member Role Status Dates Andrei Wiseman MD Primary Care Provider Active Jose Martin Jones MD Attending Provider Active Ash Pit Worker Relationship Specialty Start Date End Date Andrei Wiseman MD [address] [place] [address] PCP - General 02/07/99 [employer] Worker Relationship Specialty Start Date End Date Andrei Wiseman MD [address] [place] [address] PCP - General 02/07/99 Ash [employer] Worker Relationship Specialty Start Date End Date Andrei Wiseman MD [address] [place] [address] PCP - General 02/07/99 Team Status: Inactive Member Role Status Dates Andrei Wiseman MD Primary Care Provider Active Delilah Turner APRN Attending Provider Active Ash Pit Worker Relationship Specialty Start Date End Date Andrei Wiseman MD [address] [place] [address] PCP - General 02/07/99 Ash [employer] Worker Relationship Specialty Start Date End Date Andrei Wiseman MD [address] [place] [address] PCP - General 02/07/99 Ash Pit Worker Relationship Specialty Start Date End Date Andrei Wiseman MD [address] [place] [address] PCP - General 02/07/99 Ash Pit Worker Relationship Specialty Start Date End Date Andrei Wiseman MD [address] [place], [place] [id number] PCP - General 02/07/99 Team Status: Inactive Member Role Status Aj Wiseman MD Primary Care Provider Active Start: February 21, 2023 End: February 21, 2023 Delilah Turner APRN Attending Provider Active S tart: February 21, 2023 End: February 21, 2023 Team Status: Inactive Member Role Status Aj Wiseman MD Primary Care Provider Active Start: March 25, 2023 End: March 25, 2023 Jose Martin Jones MD Attending Provider Active Start: March 25, 2023 End: March 25, 2023 Team Status: Active Member Role Status Aj Wiseman MD Primary Care Provider Active Start: March 25, 2023 Jose Martin Jones MD Other Provider Active Start: March 25, 2023 Lino Gibbons MD Attending Provider Active Start: March 25, 2023 Team Status: Inactive Member Role Status Aj Wiseman MD Primary Care Provider Active Start: December 01, 2023 End: December 01, 2023 Tami Cardoza DO Emergency Provider Active Sta rt: December 01, 2023 End: December 01, 2023 Sergio Root DO RES Active Sta rt: December 01, 2023 End: December 01, 2023 Ash Pit Worker Relationship Specialty Start Date End Date Andrei Wiseman MD PCP - General 02/07/99 Delilah Turner, CALL CENTER RECRUITER-PHYSIOLOGICAL CHEMIST [facility] 2, [address] [place] [address] PCP - [facility] ACO Attributed Provider 02/07/23 Ash Pit Worker Relationship Specialty Start Date End Date Andrei Wiseman MD PCP - General 02/07/99 Delilah Turner, CALL CENTER RECRUITER-PHYSIOLOGICAL CHEMIST [facility] 2, [address] [place] [address] PCP - [facility] Attributed Provider 02/07/23 Ash Pit Worker Relationship Specialty Start Date End Date Andrei Wiseman MD [address] [place] [address] PCP - General Family Medicine 07/27/16 Ash Pit Worker Relationship Specialty Start Date End Date Andrei Wiseman MD [address] [place] [address] PCP - General Family Medicine 07/27/16 Ash Pit Worker Relationship Specialty Start Date End Date Andrei Wiseman MD [address] [place] [address] PCP - General Family Medicine 07/27/16 Ash Pit Worker Relationship Specialty Start Date End Date Andrei Wiseman MD [address] [place] [address] PCP - General Family Medicine 07/27/16 Ash Pit Worker Relationship Specialty Start Date End Date Andrei Wiseman MD [address] [place] [address] PCP - General Family Medicine 07/27/16 Ash Pit Worker Relationship Specialty Start Date End Date Andrei Wiseman MD [address] [place] [address] PCP - General Family Medicine 07/27/16 Ash Pit Worker Relationship Specialty Start Date End Date Andrei iWseman MD [address] [place] [address] PCP - General Family Medicine 07/27/16 Ash Pit Worker Relationship Specialty Start Date End Date Andrei Wiseman MD [address] Provider retired 05/08/24 [place] [address] PCP - General Family Medicine 07/27/16 Ash Pit Worker Relationship Specialty Start Date End Date Andrei Wiseman MD [address] Provider retired 05/08/24 [place] [address] PCP - General Family Medicine 07/27/16 Ash Pit Worker Relationship Specialty Start Date End Date Jerome Quick MD [address] [place] [address] PCP - General Internal Medicine 07/16/24 Ash Pit Worker Relationship Specialty Start Date End Date Andrei Wiseman MD [address] [place] [address] PCP - General Family Medicine 07/25/24 Ash Pit Worker Relationship Specialty [place] [address] [place] [address] PCP - General Internal Medicine 07/16/24 Ash Pit Worker Relationship Specialty Start Date End Date Jerome Quick MD [address] [place] [address] PCP - General Internal Medicine 07/16/24 Ash Pit Worker Relationship Specialty Start Date End Date Andrei Wiseman MD [address] [place] [address] PCP - General Family Medicine 07/25/24 Ash Pit Worker Relationship Specialty Start Date End Date Jerome Quick MD [address] [place] [address] PCP - General Internal Medicine 07/16/24 Ash Pit Worker Relationship Specialty Start Date End Date Jerome Quick MD [address] [place] [address] PCP - General Internal Medicine 07/16/24 Ash Pit Worker Relationship Specialty Start Date End Date Jerome Quick MD [address] [place] [address] PCP - General Internal Medicine 07/16/24 Ash Pit Worker Relationship Specialty Start Date End Date Jerome Quick MD [address] [place] [address] PCP - General Internal Medicine 07/16/24 Ash Pit Worker Relationship Specialty Start Date End Date Andrei Wiseman MD PCP - General Family Medicine 07/25/24 Goals (unrecognized section and content) Goals may [...] use Procedures ECG 12 Lead Delilah Turner CALL CENTER RECRUITERPHYSIOLOGICAL CHEMIST [address] [place] [address], [place] [phone] Referral ID Status Reason Start Date Expiration Date V isits Requested Visits Authorized [id number] Pending Review 01/17/2023 01/17/2024 1 1 Specialty Diagnoses / Procedures Referred By Contac t Referred To Contact Cardiology Diagnoses Cardiomyopathy, unspecified type (CMS/HCC) Abnormal electrocardiogram (ECG) (EKG) Procedures Transthoracic Echo (TTE) Complete NE ECHO TRANSTHORC R-T 2D W/WO M-MODE REC F-UP/LMTD NE DOP ECHOCARD COLOR FLOW VELOCITY MAPPING NE DOP ECHOCARD PULSE WAVE W/SPECTRAL F-UP/LMTD STD Delilah Turner [facility] [address] [place] [address], [place] [phone] Referral ID Status Reason Start Date Expiration Date Visits Requested Visits Authorized [id number] Pending Review Perform Procedure 01/17/2024 1 1 Reason Comments Results ECHO Specialty Diagnoses / Procedures Referred By Contac t Referred To Contact Cardiology Diagnoses Cardiomyopathy, unspecified type (CMS/HCC) Procedures Follow Up In Cardiology Delilah Turner CALL CENTER RECRUITER-PHYSIOLOGICAL CHEMIST [facility] [facility] 2, [address] [address] Referral ID Status Reason Start Date Expiration Date V isits Requested Visits Authorized [id number] Authorized 01/17/2023 01/17/2024 1 1 Reason Comments Follow-up Week per Mimi Specialty Diagnoses / Procedures Referred By Contac t Referred To Contact Cardiology Diagnoses Sick sinus syndrome (CMS/HCC) Procedures Follow Up In Cardiology Delilah Turner [facility] 2, [address] [address] Referral ID Status Reason Start Date Expiration Date V isits Requested Visits Authorized [id number] Authorized 02/21/2023 02/21/2024 1 1 Specialty Diagnoses / Procedures Referred By Contac t Referred To Contact Radiology Diagnoses Other cardiomyopathy (CMS/HCC) Paroxysmal atrial fibrillation (CMS/HCC) Essential hypertension, benign Abnormal electrocardiogram (ECG) (EKG) Procedures Nuclear Stress Test CHG MYOCARDIAL SPECT MULTIPLE STUDIES CHG MYOCARDIAL SPECT SINGLE STUDY AT REST OR STRESS Turner Delilah K, CALL CENTER RECRUITER-PHYSIOLOGICAL CHEMIST [facility] [facility] 2, [address] [address] Referral ID Status Reason Start Date Expiration Date V isits Requested Visits Authorized [id number] Pending Review 03/01/2023 02/29/2024 5 5 Reason Comments Follow-up 6m Specialty Diagnoses / Procedures Referred By Contac t Referred To Contact Cardiology Diagnoses Dilated cardiomyopathy (Multi) Procedures Follow Up In Cardiology Jose Martin Jones MD McGuinn, William P, MD Retired From Practice Referral ID Status Reason Start Date Expiration Date V isits Requested Visits Authorized [id number] Authorized 05/24/2023 05/23/2024 1 1 Reason Comments Routine Check up Antidepressants and allergy pills not working anymore Reason Comments Med Refill Reason Comments Annual Exam Medicare Wellness Reason Comments Follow-up 6 month bParoxysmal atrial fibrillation (Multi) Specialty Diagnoses / Procedures [facility] To Contact Cardiology Diagnoses Essential hypertension, benign Procedures Follow Up In Cardiology Yvonne Haas MD [address] [place] [address], [address] [address] Phone: tel: fax: Yvonne Haas MD [address] [place] [address], [address] [address] Phone: tel: fax: Referral ID Status Reason Start Date Expiration Date V isits Requested Visits Authorized [id number] Authorized 12/13/2023 12/12/2024 1 1 Reason Comments Nasal Congestion Sore Throat Cough Reason Comments EKG visit Specialty Diagnoses / Procedures Referred By Contac t Referred To Contact Diagnoses 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 use Paroxysmal atrial fibrillation (Multi) Procedures ECG 12 Lead Yvonne Haas MD [facility] [facility] 2, [address] [address] Phone: tel: fax: Referral ID Status Reason Start Date Expiration Date V isits Requested Visits Authorized [id number] Authorized 07/25/2024 07/25/2025 1 1 Reason Onset [...] BE BASED ON THE PRIMARY CLINICAL RECORDS. [facility]. provides no warranty or guarantee of the accuracy or completeness of information in this document.
--- NOTE | 2024-10-04 09:45 | XR_ITS ---
The [address] [address] Patient Name: EDUARDO HOWARD MRN: [id number] date: 1945 Sex: F [facility]igned [facility] Current Patient Location: [facility] Accession/Order Number: [id number] Exam Date: 10/04/2024 09:40 Report Date: 10/04/2024 12:07 At the request of: ALLYSON SALEEM MD Procedure: XR abdomen 1V SINGLE VIEW ABDOMEN COMPARISON: 09/17/2024 CLINICAL DATA: Follow-up right-sided kidney stone. Free retrograde urogram Supine view of the abdomen and pelvis was obtained. There is scattered air and stool within the colon. There is also small bowel air, without disproportionate distention. Both kidneys are partially obscured. Similar calcifications are again seen overlying the right abdomen suggesting kidney stones. There is linear calcific density at the left abdomen which is unchanged. There are no soft tissue masses. Degenerative changes are seen at the spine. There is prior cholecystectomy. XR/XR abdomen 1V IMPRESSION: CONTINUED SUSPECTED RIGHT NEPHROLITHIASIS, NOT SIGNIFICANT CHANGED Impression dictated by: Stephani Merchant M.D. 10/04/2024 12:07 PM Dictation Location: [place] [address] Electronically authenticated by: [id number] Y Date: 10/04/2024 12:07
[2024-10-04 10:07] LABS: INR 2.00; Prothrombin Time 19.8 sec (9.0-11.6)
[2024-10-04 10:09] LABS: Partial Thromboplastin Time 35.0 sec (22.3-36.2)
--- NOTE | 2024-10-05 10:17 | PC.NURSE ---
Patients procedure was cancelled on 10/04/2024 related to patients labs being elevated. Patient given re-education by Dr. Ding and staff regarding blood thinner medication and holding prior to procedure.
== END 2024-10-04 10:15 | disposition home or self-care (01) ==
LOC: SURGOUT 09:29
PROVIDERS: PCP Student in an Organized Health Care Education/Training Program; Visit Provider Urology
DX: N20.0 Calculus of kidney (principal); Z53.8 Procedure and treatment not carried out for other reasons; R79.89 Other specified abnormal findings of blood chemistry; I10 Essential (primary) hypertension; E11.9 Type 2 diabetes mellitus without complications; Z79.01 Long term (current) use of anticoagulants; I48.91 Unspecified atrial fibrillation; Z86.718 Personal history of other venous thrombosis and embolism; Z86.711 Personal history of pulmonary embolism
CPT/HCPCS: 52353; 36415; 74018; 85610; 85730

== ENCOUNTER 2024-11-02 10:50 | Outpatient (OUT) | payer MEDICARE, SELFPAY ==
--- OUTSIDE RECORDS SUMMARY | 2024-11-02 10:53 | XMS_ITS | Encounter Summary ---
Author Organization [facility] Address [address] [place] [address] Care Team Providers Care Head Cleaning Porter Name Role Phone Ricky Stearns Primary Care Provider [phone] Anand Bojorquez Primary Care Provider [phone] Source Comments In the event this information is protected by the Federal Confidentiality of Alcohol and Drug AbusePatient Records regulations: The Federal rules restrict any use of the information to criminally investigate or prosecute any alcohol or drug abuse patient.[facility] Encounter Details Date Type Department Care Team (Late st Contact Info) Description 10/06/2020 Abstract Hematology/Oncology [address] [place] [address] [place] [address] Eliu Brooks MD [address] [place] [address] Social History Tobacco Use Types Packs/Day Years Used Date Smoking Tobacco: Never Assessed Area Deprivation Index Answer Date Sony rded National Score (1-100), lower number is lower ri sk Not on file 10/07/2020 State Score (1-10), lower number is lower risk N ot on file 10/07/2020 Data from: https://www.neighborhoodatlas.medicine.[facility].edu/. Last address used for calculation Not on file 10/07/2020 Comments Unknown Sex and Gender Information Value Date Recorded Sex Assigned at Not on file Legal Sex Female 12:07 PM EDT Gender Identity Not on file Sexual Orientation Not on file COVID-19 Exposure Response Date Recorded In the last month, have you been in contact with someone who was confirmed or suspected to have Coronavirus / COVID-19? No / Unsure 10/07/2020 10:51 AM EDT documented as of this encounter Plan of Treatment Not on file documented as of this encounter Visit Diagnoses Not on filedocumented in this encounter Care Teams Head Cleaning Porter Relationship Specialty Start Date End Date Ricky Stearns PCP - General Emergency Medicine 11/08/13 10/06/20 Anand Bojorquez [address] [place] [address] PCP - General Family Medicine 10/07/20 documented as of this encounter
--- OUTSIDE RECORDS SUMMARY | 2024-11-02 10:53 | XMS_ITS | Encounter Summary ---
Author Organization [facility] Address [id number] [address] [place] [address] Care Team Providers Care Flower Shop Manager Name Role Phone Jerome Quick MD Primary Care Provider [phone] Encounter Details Date Type Department Care Team (Late st Contact Info) Description 09/16/2023 Orders Only [facility] [address] [place] [phone] External, Scanning Provider Social History Tobacco Use Types Packs/Day Years Used Date Smoking Tobacco: Never Smokeless Tobacco: Never Alcohol Use Standard Drinks/Week Comments No 0 (1 standard drink = 0.6 oz pur e alcohol) PHQ-2 Answer Date Recorded Total Score 4 08/04/2023 Childcare Answer Date Recorded Childcare Unknown 07/07/2018 Employment Answer Date Recorded Employment Unknown 07/07/2018 Hunger Screening Answer Date Recorded Within the past 12 months we worried whether our food would run out before we got money to buy more. Never True 08/04/2023 Within the past 12 months th e food we bought just didn't last and we didn't have money to get more. Never True 08/04/2023 Purpose - Life Answer Date Recorded Purpose and direction in life Unknown Comments No Sex and Gender Information Value Date Recorded Sex Assigned at Not on file Legal Sex Female 11:50 AM EDT Gender Identity Not on file Sexual Orientation Not on file documented as of this encounter Plan of Treatment Upcoming Encounters Date Type Department Care Team (Latest Contact Info) Description 11/07/2024 2:00 PM EDT Follow Up Anticoagulation [facility] Medication Management [address] [place] [address] 02/14/2025 1:15 PM EST Office Visit [facility] [address] [place] [phone] Jerome Quick MD [address] [place] [phone] 08/13/2025 1:00 PM EDT Office Visit [facility] [address] [place] [phone] Jerome Quick MD [address] [place] [phone] documented as of this encounter Goals Goal Patient Goal Type Associated Problems Recent Progress Patient-Stated? Author <enter goal here> General Yes Kristel Mclaughlin LSW Note: Evaluation of progress towards goal: return home independent like prior to admission documented as of this encounter Procedures Procedure Name Priority Date/Time Associated Diagnosis Comments XR ABDOMEN AP 1 VW Routine 09/13/2023 documented in this encounter Results * X-ray abdomen ap 1 view (09/13/2023) Anatomical Region Laterality Modality Body, Abdomen N/A Computed Radiogr aphy 09/13/2023 us Scanning Provider External IMG DIAGNOSTIC IMAGIN G ORDERABLES Final Result documented in this encounter Visit Diagnoses Not on filedocumented in this encounter Additional Health Concerns Assessment Noted Time PHQ-9 Depression Total Score: 4 08/04/19 24 9:00 AM EDT A Body Mass Index follow-up plan has been documented for the patient 07/29/2020 11:32 AM EDT documented as of this encounter Care Teams Flower Shop Manager Relationship Specialty Start Date End Date Jerome Quick MD [address] [place] [address] PCP - General Internal Medicine 07/16/24 documented as of this encounter
--- OUTSIDE RECORDS SUMMARY | 2024-11-02 10:53 | XMS_ITS | Encounter Summary ---
Author Organization [facility] [employer] Sys tem Address [id number] [address] [place] [address] Care Team Providers Care Electrical Instrument Repairer Name Role Phone Jerome Quick MD Primary Care Provider [phone] Reason for Visit * Reason Comments Med Refill Encounter Details Date Type Department Care Team (Late st Contact Info) Description 03/25/2019 Refill [facility] [address] [place] [phone] Lonnie Fields DO [address], [place] [phone] Social History Tobacco Use Types Packs/Day Years Used Date Smoking Tobacco: Never Smokeless Tobacco: Never Alcohol Use Standard Drinks/Week Comments No 0 (1 standard drink = 0.6 oz pur e alcohol) PHQ-2 Answer Date Recorded PHQ-2 Score 0 01/24/2019 Childcare Answer Date Recorded Childcare Unknown 07/07/2018 Employment Answer Date Recorded Employment Unknown 07/07/2018 Comments No Sex and Gender Information Value Date Recorded Sex Assigned at Not on file Legal Sex Female 11:50 AM EDT Gender Identity Not on file Sexual Orientation Not on file documented as of this encounter Miscellaneous Notes * Telephone Encounter - Mimi Sandoval LPN - 03/25/2019 11:09 AM EST [facility] sent a Pantoprazole Rx to Dr. Fields office and he refused the refill, do you wantthe patient to continue this medication? Mimi Sandoval LPN 03/27/19 1501 documented in this encounter Plan of Treatment Upcoming Encounters Date Type Department Care Team (Latest Contact Info) Description 11/07/2024 2:00 PM EDT Follow Up Anticoagulation [facility] - Pharmacy Medication Management [address] [place] [address] 02/14/2025 1:15 PM EST Office Visit [facility] Family Medicine [address] [place] [phone] Jerome Quick MD [address] [place] [address] [phone] 08/13/2025 1:00 PM EDT Office Visit [facility] Family [facility] [address] [place] [phone] Jerome Quick MD [address] [place] [address] [phone] documented as of this encounter Goals Goal Patient Goal Type Associated Problems Recent Progress Patient-Stated? Author <enter goal here> General Yes Kristel Mclaughlin LSW Note: Evaluation of progress towards goal: return home independent like prior to admission documented as of this encounter Visit Diagnoses Not on filedocumented in this encounter Additional Health Concerns Assessment Noted Time PHQ-9 Depression Total Score: 0 03/09/19 20 1:00 PM EST A Body Mass Index follow-up plan has been documented for the patient 02/14/2019 3:14 PM EST documented as of this encounter Care Teams Electrical Instrument Repairer Relationship Specialty Start Date End Date Jerome Quick MD [address] [place] [address] [phone] PCP - General Internal Medicine 07/16/24 documented as of this encounter
--- OUTSIDE RECORDS SUMMARY | 2024-11-02 10:53 | XMS_ITS | Encounter Summary ---
Author Organization [facility] [employer] Address [id number] [address] [place] [address] Care Team Providers Care Sponge Maker Name Role Phone Jerome Quick MD Primary Care Provider [phone] Encounter Details Date Type Department Care Team (Late st Contact Info) Description 09/01/2022 Orders Only [facility] [address] [place] [phone] Ashley Keene CMA Chronic diastolic congestive heart failure (CMS-HCC); Paroxysmal A-fib (CMS-HCC); Essential hypertension Social History Tobacco Use Types Packs/Day Years Used Date Smoking Tobacco: Never Smokeless Tobacco: Never Alcohol Use Standard Drinks/Week Comments No 0 (1 standard drink = 0.6 oz pur e alcohol) PHQ-2 Answer Date Recorded Total Score 8 08/02/2022 Childcare Answer Date Recorded Childcare Unknown 07/07/2018 Employment Answer Date Recorded Employment Unknown 07/07/2018 Hunger Screening Answer Date Recorded Within the past 12 months we worried whether our food would run out before we got money to buy more. Never True 08/02/2022 Within the past 12 months th e food we bought just didn't last and we didn't have money to get more. Never True 08/02/2022 Purpose - Life Answer Date Recorded Purpose [...] 2:00 PM EDT Follow Up Anticoagulation [facility] - Pharmacy Medication Management [address] [place] [address] 02/14/2025 1:15 PM EST Office Visit [facility] Family Medicine [address] [place] [phone] Jerome Quick MD [address] [place] [address] [phone] 08/13/2025 1:00 PM EDT Office Visit [facility] Family Medicine [address] [place] [phone] Jerome Quick MD [address] [place] [address] [phone] documented as of this encounter Goals Goal Patient Goal Type Associated Problems Recent Progress Patient-Stated? Author <enter goal here> General Yes Kristel Mclaughlin LSW Note: Evaluation of progress towards goal: return home independent like prior to admission documented as of this encounter Procedures Procedure Name Priority Date/Time Associated Diagnosis Comments THYROID PROFILE INCLUDES TSH FT4 Routine 08/05/2022 Chronic diastolic congestive heart failure ([facility]) Paroxysmal A-fib ([facility]-HCC) Essential hypertension CBC WITH AUTO DIFFERENTIAL Routine 08/05/2022 Chronic diastolic congestive heart failure ([facility]) Paroxysmal A-fib ([facility]) Essential hypertension LIPID PROFILE Routine 08/05/2022 Chronic diastolic congestive heart failure ([facility]-HCC) Paroxysmal A-fib ([facility]-H[facility]) Essential hypertension COMPREHENSIVE METABOLIC PANEL Routine 08/05/2022 Chronic diastolic congestive heart failure ([facility]) Paroxysmal A-fib ([facility]) Essential hypertension documented in this encounter Results * Thyroid profile includes TSH FT4 (08/05/2022) 08/05/2022 Anand iWseman MD LAB BLOOD ORDERABLES Final R esult Performing Organization Address [facility] Co de Phone Number [employer]QUEST * CBC auto differential (08/05/2022) 08/05/2022 Anand Wiseman MD LAB BLOOD ORDERABLES Final R esult Performing Organization Address [facility] Co de Phone Number SUNQUEST * Comprehensive metabolic panel (08/05/2022) 08/05/2022 Result [facility] Anand Wiseman MD LAB BLOOD ORDERABLES Final R esult Performing Organization Address [facility] de Phone Number SUNQUEST * Lipid profile (08/05/2022) External Cholesterol 159 <=200 [employer] External Cholesterol:Hdl 3.2 <=5 [employer] External Hdl Cholesterol 49 >=40 [employer] External Ldl (Calc) 87 <=100 [employer] External Triglycerides 113 [employer]QUEST External Very Low Lipoprotein 22 [employer] 08/05/2022 Result [facility] Anand Wiseman MD LAB BLOOD ORDERABLES Final R esult Performing Organization Address [facility] de Phone Number SUNQUEST documented in this encounter Visit Diagnoses Diagnosis Chronic diastolic congestive heart failure (CMS-HCC) Paroxysmal A-fib (CMS-HCC) Essential hypertension Unspecified essential hypertension documented in this encounter Additional Health Concerns Assessment Noted Time PHQ-9 Depression Total Score: 8 08/03/19 23 10:00 AM EDT A Body Mass Index follow-up plan has been documented for the patient 07/29/2020 11:32 AM EDT documented as of this encounter Care Teams Sponge Maker Relationship Specialty Start Date End Date Jerome Quick MD [address] [place] [phone] PCP - General Internal Medicine 07/16/24 documented as of this encounter
--- OUTSIDE RECORDS SUMMARY | 2024-11-02 10:53 | XMS_ITS | Encounter Summary ---
Author Organization [facility] tem Address [id number] [address] [place] [address] Care Team Providers Care Pug Mill Operator Helper Name Role Phone Jerome Quick MD Primary Care Provider [phone] Encounter Details Date Type Department Care Team (Late st Contact Info) Description 12/25/2020 Orders Only [facility] Family Medicine [address] [place] [phone] External, Scanning Provider Social History Tobacco Use Types Packs/Day Years Used Date Smoking Tobacco: Never Smokeless Tobacco: Never Alcohol Use Standard Drinks/Week Comments No 0 (1 standard drink = 0.6 oz pur e alcohol) PHQ-2 Answer Date Recorded Total Score 1 10/29/2020 Childcare Answer Date Recorded Childcare Unknown 07/07/2018 Employment Answer Date Recorded Employment Unknown 07/07/2018 Purpose - Life Answer Date Recorded Purpose [...] 11/07/2024 2:00 PM EDT Follow Up Anticoagulation [facility] - Pharmacy Medication Management [address] [place] [address] 02/14/2025 1:15 PM EST Office Visit [facility] [address] [place], [place] [address] [place] [phone] Jerome Quick MD [address] [place] [address] [phone] 08/13/2025 1:00 PM EDT Office [facility] [place] [phone] Jerome Quick MD [address] [place] [phone] documented as of this encounter Goals Goal Patient Goal Type Associated Problems Recent Progress Patient-Stated? Author <enter goal here> General Yes Kristel Mclaughlin LSW Note: Evaluation of progress towards goal: return home independent like prior to admission documented as of this encounter Procedures Procedure Name Priority Date/Time Associated Diagnosis Comments SARS COV 2 (COVID-19) STAT 11/10/2020 documented in this encounter Results * SARS COV 2 (COVID-19) (11/10/2020) EXTERNAL SARS COV 2 Negative Negative MANUALLY TRANSCRIBED RESULTS NASOPHARYNGEAL 11/10/2020 us Scanning Provider External MICROBIOLOGY - GENERA L ORDERABLES Final Result MANUALLY TRANSCRIBED RESULTS documented in this encounter Visit Diagnoses Not on filedocumented in this encounter Additional Health Concerns Assessment Noted Time PHQ-9 Depression Total Score: 1 10/30/19 21 10:00 AM EDT A Body Mass Index follow-up plan has been documented for the patient 07/29/2020 11:32 AM EDT documented as of this encounter Care Teams Pug Mill Operator Helper Relationship Specialty Start Date End Date Jerome Quick MD [address] [place] [phone] PCP - General Internal Medicine 07/16/24 documented as of this encounter
--- OUTSIDE RECORDS SUMMARY | 2024-11-02 10:53 | XMS_ITS | Encounter Summary ---
Author Organization [facility] [employer] [facility] Address [id number] [address] [place] [address] Care Team Providers Care Shift Production Supervisor Name Role Phone Jerome Quick MD Primary Care Provider [phone] Reason for Visit * Reason Comments Med Refill Encounter Details Date Type Department Care Team ( Contact Info) Description 04/20/2019 Refill [facility] [address] [place] [phone] Anand Wiseman MD [address]. Provider retired 05/08/24 [place], [place] [phone] Social History Tobacco Use Types Packs/Day Years [...] 11/07/2024 2:00 PM EDT Follow Up Anticoagulation [facility] - Pharmacy Medication Management [address] [place] [address] 02/14/2025 1:15 PM EST Office Visit [facility] Family Medicine [address] [place] [phone] Jerome Quick MD [address] [place] [address] [phone] 08/13/2025 1:00 PM EDT Office Visit [facility] Family Medicine [address] [place] [phone] Jerome Quick MD [address] [place] [address] [phone] documented as of this encounter Goals Goal [...] documented as of this encounter Care Teams Shift Production Supervisor Relationship Specialty Start Date End Date Jerome Quick MD [address] [place] [address] [phone] PCP - General Internal Medicine 07/16/24 documented as of this encounter
--- OUTSIDE RECORDS SUMMARY | 2024-11-02 10:53 | XMS_ITS | Clinical Summary ---
Author Organization vushaper s tem Address [id number] [address] [place] [address] Care Team Providers Care Still Operator Name Role Phone Jerome Quick MD Primary Care Provider [phone] Allergies Active Allergy Reactions Criticality Noted Date Comments Animal Dander 07/30/2021 Aspirin 10/07/2020 Other reaction(s): Other: See Comments Ulcers Cat Dander Other (See Comments) Low 11/26/2022 Codeine 08/26/2011 nausea Dog Dander Other (See Comments) Low 11/26/2022 House Dust 07/30/2021 Ibuprofen 10/07/2020 Other reaction(s): Other: See Comments Ulcers Morphine 08/26/2011 nausea Nitrofurantoin 07/30/2021 Oxycodone-Acetaminophen Hallucinations 07/31/19 22 Medications MULTIVITAMIN ORAL Take by mouth. Active amiodarone (PACERONE) 200 mg tablet Take 1 tablet (200 mg total) by mouth in the morning. 09/08/19 22 Active ferrous sulfate (IRON ORAL) Take by mouth. 1-2 times a week Active POTASSIUM CITRATE ORAL Take 25 mg by mouth in the morning and 25 mg before bedtime. Active dapagliflozin propanediol (FARXIGA) 10 mg tablet Take 1 tablet (10 mg total) by mouth in the morning. 12/29/19 24 025 Active FLUoxetine (PROzac) 20 mg capsule Take 1 capsule (20 mg total) by mouth in the morning. 90 capsule 3 01/25/20 24 Active losartan (COZAAR) 100 mg tablet Take 1 tablet (100 mg total) by mouth in the morning. 90 tablet 3 01/25/20 24 Active spironolactone (ALDACTONE) 25 mg tablet Take 1 tablet (25 mg total) by mouth in the morning. 90 tablet 3 01/25/20 24 Active metoprolol tartrate (LOPRESSOR) 25 mg tablet Take 0.5 tablets (12.5 mg total) by mouth in the morning and 0.5 tablets (12.5 mg total) before bedtime. 07/26/19 25 026 Active pantoprazole (PROTONIX) 40 mg EC tabletIndicatio ns:PUD (peptic ulcer disease) TAKE 1 TABLET BY MOUTH 2 TIMES A DAY 180 tablet 1 08/18/19 25 Active warfarin (COUMADIN) 1 mg tabletIndicatio ns:Atrial fibrillation, unspecified type (CMS-HCC) Take 2-3 tablets (2-3 mg total) by mouth in the evening. As directed by [facility]. 270 tablet 1 11/03/19 25 Active warfarin (COUMADIN) 1 mg tabletIndicatio ns:Atrial fibrillation, unspecified type (CMS-HCC) Take 1.5-2.5 tablets (1.5-2.5 mg total) by mouth in the evening. 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 Preoperative clearance 11/11/2020 Essential hypertension 03/03/2020 Chronic diastolic congestive heart failure 03/09 Pulmonary emboli 03/03/2019 Shortness of breath 02/16/2019 PUD (peptic ulcer disease) 02/08/2019 Paroxysmal A-fib 02/01/2019 Nephrolithiasis 07/21/2017 H/O gastric bypass 07/21/2017 Resolved Problems Problem Noted Date Diagnosed Date Resolved Date BMI 40.0-44.9, adult 03/09/2019 023 Encounters Date Type Department Care Team Description 11/02/2024 Refill [facility] - Pharmacy Medication Management [address] [place] [address] Olinda Elena, [facility] Atrial fibrillation, unspecified type ([facility]) 10/10/2024 2:00 PM EDT Follow Up Anticoagulation [facility] - Pharmacy Medication Management [address] [place] [address] Paroxysmal A-fib ([facility]) (Primary Dx) 10/10/2024 Travel 10/04/2024 Orders Only [facility] [address] [place] [address] [place] [phone] External, Scanning Provider 09/25/2024 [facility] [address] [place] [address] [place] [address] External, Scanning Provider 09/19/2024 [facility] [address] [place] [address] [place] [address] External, Scanning Provider 09/14/2024 2:05 PM EDT - 09/14/2024 11:59 PM EDT Hospital Encounter [facility] - Radiology [address] [place] [address] Calculus of kidney Discharge Disposition: Home 09/14/2024 Results Follow-Up [facility] [address] [place], [place] [address] [address] Jerome Quick MD Lipid profile, Comprehensive metabolic panel, TSH, CBC auto differential 09/12/2024 2:00 PM EDT Follow Up Anticoagulation [facility] - Pharmacy Medication Management [address] [place] [address] Paroxysmal A-fib ([facility]) (Primary Dx) 09/12/2024 Travel 08/16/2024 Refill [facility] [place] [phone] Anand Wiseman MD PUD (peptic ulcer disease) 08/15/2024 1:45 PM EDT Follow Up Anticoagulation [facility] - Pharmacy Medication Management [address] [place] [address] Paroxysmal A-fib (CMS-HCC) (Primary Dx) 08/15/2024 Travel 08/08/2024 1:00 PM EDT Office Visit [facility] [address] [place] [phone] Jerome Quick MD Encounter for Medicare annual wellness exam (Primary Dx); Paroxysmal A-fib (CMS-HCC); Single subsegmental pulmonary embolism without acute cor pulmonale (CMS-HCC); Chronic diastolic congestive heart failure (CMS-HCC); Essential hypertension; Acoustic neuroma (CMS-HCC); Yeast infection; PUD (peptic ulcer disease); Hypothyroidism (acquired) 08/08/2024 Travel 08/03/2024 Telephone [facility] [address] [place] [phone] Ashley Keene CMA Vaginitis from Last 3 Months Immunizations Immunization Administration Dates Next Due AS03 Adjuvant 11/11/2019,11/24/2017 COVID-19, mRNA, LNP-S, PF, 3 0mcg/0.3mL Dose 12/19/2020,04/22/2020,04/01/2020 Covid-19, Mrna, Lnp-s, Bival ent, Pf, 50mcg/0.5ml or 25mcg/0.25ml 10/23/2021 Influenza High Dose Preserva tive Free IM 11/27/2023,12/10/2020,11/16/2016,11/11,01/10/2014 Influenza Vaccine, Quadrival ent, Adjuvanted 11/11/2019 Influenza, High-dose, Quadrivalent 12/14/2022,,12/10/2020 Influenza, Im Trivalent Preservative 11/10/2021 Influenza, Injectable, MDCK, Quadrivalent 12/11/2018 Influenza, Injectable, Mdck, Preservative Free, Quad 12/11/2018 Influenza, Injectable, quadr ivalent (PF) 11/20/2014 Influenza, Trivalent, Adjuvanted 11/11/2019,11/07 Influenza, Unspecified 11/24/2017,2016,11/11/2014,01/10 Pneumococcal Conjugate 13-Valent 11/16/2016 Pneumococcal Polysaccharide 11/24/2017, 3 Zoster Vaccine Recombinant 08/20/2022,04/01/2022 Family History Medical History Relation Name Comments Hyperlipidemia Brother Hypertension Brother Diabetes Father Hypertension Father Colon cancer Mother Heart disease Mother Heart failure Mother Hypertension Mother Stroke Mother Hypertension Sister Ovarian cancer Sister Breast cancer Neg Hx Relation Name Status Comments Brother Father Mother Sister Social History Tobacco Use Types Packs/Day Years Used Date Smoking Tobacco: Never Smokeless Tobacco: Never Tobacco Cessation:Counseling Given: Not Answered Alcohol Use Standard Drinks/Week Comments No 0 (1 standard drink = 0.6 oz pur e alcohol) PHQ-2 Answer Date Recorded Total Score 5 08/08/2024 Childcare Answer Date Recorded Childcare Unknown 07/07/2018 Employment Answer Date Recorded Employment Unknown 07/07/2018 Hunger Screening Answer Date Recorded Within the past 12 months we worried whether our food would run out before we got money to buy more. Never True 08/08/2024 Within the past 12 months th e food we bought just didn't last and we didn't have money to get more. Never True 08/08/2024 Purpose - Life Answer Date Recorded Purpose and direction in life Unknown Comments No Sex and Gender Information Value Date Recorded Sex Assigned at Not on file Legal Sex Female 11:50 AM EDT Gender Identity Not on file Sexual Orientation Not on file Last Filed Vital Signs Vital Sign Reading Time Taken Comments Blood Pressure 108/80 08/08/2024 1:07 PM EDT Pulse 72 08/08/2024 1:07 PM EDT Temperature 36.6 C (97.9 F) 07/26/2024 3:47 PM EDT Respiratory Rate 18 08/08/2024 1:07 PM EDT Oxygen Saturation 98% 08/08/2024 1:07 PM EDT Inhaled Oxygen Concentration - - Weight 90.3 kg (199 lb) 08/08/2024 1:07 PM EDT Height 163.8 cm (5' 4.5 ) 08/08/2024 1:07 PM EDT Body Mass Index 33.63 08/08/2024 1:07 PM EDT Plan of Treatment Upcoming Encounters Date Type Department Care Team (Latest Contact Info) Description 11/07/2024 2:00 PM EDT Follow Up Anticoagulation [facility] - Pharmacy Medication Management [address] [place] [address] 02/14/2025 1:15 PM EST Office Visit [facility] [address] [place] [phone] Jerome Quick MD [address] [place] [phone] 08/13/2025 1:00 PM EDT Office Visit [facility] [address] [place] [phone] Jerome Quick MD [address] [place] [address] [phone] Health Maintenance Due Date Last Done Comments DTaP,Tdap and Td Vaccines (1 - Tdap) 1964 Colonoscopy 01/28/2012 01/27/2007 COVID-19 Vaccine (2023-2 5 season) 2024 11/27/2023, 12/14/2022, 10/23/2021, Additional history exists Influenza Vaccine 10/08/2024 11/27/2023, , 11/10/2021, Additional history exists Depression Screening 08/08/2025 08/08/2024 Fall Risk Screening 08/08/2025 08/08/2024 Medicare Annual Wellness Visit 08/08/2025 0 08/08/2024, 08/04/2023, 08/02/2022, Additional history exists Tobacco Screening 08/08/2025 08/08/2024 Zoster (Shingles) Vaccine Completed 08/20/2022, Goals Goal Patient Goal Type Associated Problems Recent Progress Patient-Stated? Author <enter goal here> General Yes Kristel Mclaughlin LSW Note: Evaluation of progress towards goal: return home independent like prior to admission Medical Devices Implanted Type Area Regional Controller Device Identifier Shelf Expiration Date Model / Serial / Lot Other Implant Other Implant Right: Breast Procedures Procedure Name Priority Date/Time Associated Diagnosis Comments POCT PROTIME / INR Routine 10/10/2024 2: 04 PM EDT Paroxysmal A-fib (CMS-HCC) XR ABDOMEN AP 1 VW Routine 10/04/2024 12 :49 PM EDT XR CHEST 2 VWS Routine 09/25/2024 12:17 PM EDT URINE CULTURE Routine 09/19/2024 2:13 PM EDT XR ABDOMEN AP 1 VW Routine 09/14/2024 2: 26 PM EDT Calculus of kidney CBC WITH AUTO DIFFERENTIAL Routine 09/13/2024 12:16 PM EDT Essential hypertension TSH Routine 09/13/2024 12:16 PM EDT Essential hypertension COMPREHENSIVE METABOLIC PANEL Routine 09/13/2024 12:16 PM EDT Essential hypertension LIPID PROFILE Routine 09/13/2024 12:16 PM EDT Chronic diastolic congestive heart failure (CMS-HCC) Hypothyroidism (acquired) POCT PROTIME / INR Routine 09/12/2024 1: 59 PM EDT Paroxysmal A-fib (CMS-HCC) POCT PROTIME / INR Routine 08/15/2024 1: 36 PM EDT Paroxysmal A-fib (CMS-HCC) HM COLONOSCOPY Routine 01/27/2007 from Last 3 Months or Most Recently Relevant to Health Maintenance Results * (ABNORMAL) POCT Protime / INR (10/10/2024 2:04 PM EDT) Only the most recent of3 resultswithin the time period is included. INR 1.8(A) 0.8 - 1.2 MANUALLY TRANSCRIBED RESULTS 10/10/2024 2:04 PM EDT [facility] Med[facility] POINT O F CARE TEST ORDERABLES Final Result Performing Organization Address [facility] de Phone Number MANUALLY TRANSCRIBED RESULTS * X-ray abdomen ap 1 view (10/04/2024 12:49 PM EDT) Only the most recent of2 resultswithin the time period is included. Anatomical Region Laterality Modality Body, Abdomen N/A Computed Radiogr aphy us Scanning Provider External IMG DIAGNOSTIC IMAGIN G ORDERABLES Final Result * X-ray chest 2 views (09/25/2024 12:17 PM EDT) Anatomical Region Laterality Modality Body, Chest N/A Computed Radiogr aphy us Scanning Provider External IMG DIAGNOSTIC IMAGIN G ORDERABLES Final Result * Urine Culture (09/19/2024 2:13 PM EDT) Urine us Scanning Provider External MICROBIOLOGY - GENERA L ORDERABLES Final Result Performing Organization Address [facility] de Phone Number MANUALLY TRANSCRIBED RESULTS * CBC auto differential (09/13/2024 12:16 PM EDT) WBC 7.0 4 - 11 x10E9/L 09/13/2024 7:51 PM EDT [facility] RBC Count 5.07 3.8 - 5.2 X10E12/L 09/13/2024 7:51 PM EDT [facility] Hemoglobin 14.8 11.7 - 15.5 g/dL 09/13/2024 7:51 PM EDT [facility] Hematocrit 44.7 35 - 47 % 09/13/2024 7:51 PM EDT [facility] MCV 88 80 - 100 fL 09/13/2024 7:51 PM EDT [facility] MCH 29.2 27 - 34 pg 09/13/2024 7:51 PM EDT [facility] MCHC 33.2 32 - 36 g/dL 09/13/2024 7:51 PM EDT [facility] RDW 13.9 11.5 - 15 % 09/13/2024 7:51 PM EDT [facility] Platelet Count 198 150 - 450 X10E9/L 09/13/2024 7:51 PM EDT [facility] MPV 8.8 7 - 12 fL 09/13/2024 7:51 PM EDT [facility] Bands % 1 % 09/13/2024 7:51 PM EDT [facility] Comment:This is an appended report. These results have been appended to a previously preliminary verified report. Neutrophils % 48 % 09/13/2024 7:51 PM EDT [facility] Comment:This is an appended report. These results have been appended to a previously preliminary verified report. Lymphocytes % 36 % 09/13/2024 7:51 PM EDT [facility] Comment:This is an appended report. These results have been appended to a previously preliminary verified report. Monocytes % 9 % 09/13/2024 7:51 PM EDT [facility] Comment:This is an appended report. These results have been appended to a previously preliminary verified report. Eosinophils % 5 % 09/13/2024 7:51 PM EDT [facility] Comment:This is an appended report. These results have been appended to a previously preliminary verified report. Basophils % 3 % 09/13/2024 7:51 PM EDT [facility] Comment:This is an appended report. These results have been appended to a previously preliminary verified report. Neutrophils Absolute (M) 3.3 1.5 - 6.6 10*3/uL 09/13/2024 7:51 PM EDT [facility] Comment:This is an appended report. These results have been appended to a previously preliminary verified report. Lymphocytes Absolute 2.5 1.0 - 3.5 10*3/uL 09/13/2024 7:51 PM EDT [facility] Comment:This is an appended report. These results have been appended to a previously preliminary verified report. Monocytes Absolute 0.6 0.0 - 0.9 10*3/uL 09/13/2024 7:51 PM EDT [facility] Comment:This is an appended report. These results have been appended to a previously preliminary verified report. Eosinophils Absolute 0.3 0.0 - 0.4 10*3/uL 09/13/2024 7:51 PM EDT [facility] Comment:This is an appended report. These results have been appended to a previously preliminary verified report. Basophils Absolute 0.2 0.0 - 0.2 10*3/uL 09/13/2024 7:51 PM EDT [facility] Comment:This is an appended report. These results have been appended to a previously preliminary verified report. RBC Morphology Normal 09/13/2024 7:51 PM EDT [facility] Comment:This is an appended report. These results have been appended to a previously preliminary verified report. Differential Type MANUAL DIFFERENTIAL 09/13/2024 7:51 PM EDT [facility] Comment:This is an appended report. These results have been appended to a previously preliminary verified report. Blood Venous blood / Unknown Venipuncture / Unknown 09/13/2024 12:16 PM EDT 09/13/2024 12:16 PM EDT us Jerome Quick MD LAB BLOOD ORDERABLES Final Res ult [facility] [address] [place] [address], * TSH (09/13/2024 12:16 PM EDT) TSH 1.59 0.49 - 4.67 uIU/mL 09/13/2024 6:46 PM EDT [facility] Blood Venous blood / Unknown Venipuncture / Unknown 09/13/2024 12:16 PM EDT 09/13/2024 12:16 PM EDT us Jerome Quick MD LAB BLOOD ORDERABLES Final Res ult [facility] [address] [place] [address], * (ABNORMAL) Lipid profile (09/13/2024 12:16 PM EDT) CHOLESTEROL 204(H) 150 - 200 mg/dL 09/13/2024 6:46 PM EDT [facility] TRIGLYCERIDE 147 27 - 150 mg/dL 09/13/2024 6:46 PM EDT [facility] HDL CHOLESTEROL 55 >39 mg/dL 6:46 PM EDT [facility] Comment: HDL <40 mg/dL - High Risk HDL > or = 40mg/dL- Desirable HDL >60 mg/dL - Negative Risk LDL (CALC) 120 <130 mg/dL 09/13/2024 6:46 PM EDT [facility] Comment: LDL <100 mg/dL - Desirable LDL >160 mg/dL - High Risk CHOLESTEROL:HDL 3.7 1.0 - 5.0 6:46 PM EDT [facility] VERY LOW LIPOPROTEIN 29 0 - 30 mg/dL 09/13/2024 6:46 PM EDT [facility] Blood Venous blood / Unknown Venipuncture / Unknown 09/13/2024 12:16 PM EDT 09/13/2024 12:16 PM EDT Jerome Quick MD LAB BLOOD ORDERABLES Final Res ult [facility] [address] [place] [address], * (ABNORMAL) Comprehensive metabolic panel (09/13/2024 12:16 PM EDT) SODIUM 140 134 - 146 mmol/L 09/13/2024 6:46 PM EDT [facility] POTASSIUM 4.8 3.5 - 5.0 mmol/L 09/13/2024 6:46 PM EDT [facility] CHLORIDE 107 98 - 109 mmol/L 09/13/2024 6:46 PM [facility] CARBON DIOXIDE 24 22 - 32 mmol/L 09/13/2024 6:46 PM T [facility] ANION GAP 9 5 - 15 mmol/L 09/13/2024 6:46 PM [facility] BLOOD UREA NITROGEN 23 5 - 27 mg/dL 09/13/2024 6:46 PM [facility] CREATININE 1.38(H) 0.40 - 1.00 mg/dL 09/13/2024 6:46 PM [facility] Comment:METHOD TRACEABLE TO IDDC STANDARD GLUCOSE 87 65 - 99 mg/dL 09/13/2024 6:46 PM [facility] CALCIUM 8.7 8.5 - 10.5 mg/dL 09/13/2024 6:46 PM [facility] TOTAL PROTEIN 6.8 6.0 - 8.0 g/dL 09/13/2024 6:46 PM [facility] ALBUMIN 3.9 3.2 - 5.3 g/dL 09/13/2024 6:46 PM [facility] ALKALINE PHOSPHATASE 77 39 - 130 U/L 09/13/2024 6:46 PM [facility] AST 28 <=41 U/L 09/13/2024 6:46 PM [facility] ALT 22 <=31 U/L 09/13/2024 6:46 PM [facility] BILIRUBIN,TOTAL 0.6 0.3 - 1.2 mg/dL 09/13/2024 6:46 PM [facility] EGFR Non-Race Dependent 39(L) >=60 ml/min/1.7 3sq.m 09/13/2024 6:46 PM [facility] Comment: Reported eGFR is based on the CKD-EPI 2020 equation that does not use a race coefficient. Blood Venous blood / Unknown Venipuncture / Unknown 09/13/2024 12:16 PM EDT 09/13/2024 12:16 PM EDT us Jerome Quick MD LAB BLOOD ORDERABLES Final Res ult [facility] [address] [place] [address], * COLONOSCOPY (01/27/2007) Colonoscopy Colonoscopy EM LAB 01/27/2007 us Scanning Provider External HEALTH MAINTENANCE Ed ited Result - Final [facility] [address] [place] [address] from Last 3 Months or Most Recently Relevant to Health Maintenance Insurance MEDICARE AET[employer] Advance Directives * Full Code (Latest Code Status on File) Date Activated Date Inactivated Comments 03/03/2019 4:41 PM 03/05/2019 6:45 PM * Full Code Date Activated Date Inactivated Comments 02/08/2019 1:57 PM 02/11/2019 4:49 PM * Full Code Date Activated Date Inactivated Comments 02/02/2019 12:57 PM 02/03/2019 7:23 PM * Full Code Date Activated Date Inactivated Comments 02/01/2019 3:40 PM 02/02/2019 12:57 PM Care Teams Still Operator Relationship Specialty Start Date End Date Jerome Quick MD [address] [place] [address] PCP - General Internal Medicine 07/16/24
--- OUTSIDE RECORDS SUMMARY | 2024-11-02 10:53 | XMS_ITS | Encounter Summary ---
Author Organization [facility] tem Address [id number] [address] [place] [address] Care Team Providers Care Cottrell Operator Name Role Phone Jerome Quick MD Primary Care Provider [phone] Encounter Details Date Type Department Care Team (Late st Contact Info) Description 01/19/2021 Telephone [facility] [address] [place] [phone] Joseluis Joyce CNA Social History Tobacco Use Types Packs/Day Years Used Date Smoking Tobacco: Never Smokeless Tobacco: Never Alcohol Use Standard Drinks/Week Comments No 0 (1 standard drink = 0.6 oz pur e alcohol) PHQ-2 Answer Date Recorded Total Score 0 01/19/2021 Childcare Answer Date Recorded Childcare Unknown 07/07/2018 [...] have Coronavirus / COVID-19? No / Unsure 01/21/2021 9:46 AM EST documented as of this encounter Plan of Treatment Upcoming Encounters Date Type Department Care Team (Latest Contact Info) Description 11/07/2024 2:00 PM EDT Follow Up Anticoagulation [facility] - Pharmacy Medication Management [address] [place] [address] 02/14/2025 1:15 PM EST Office Visit [facility] [address] [place] [phone] Jerome Quick MD [address] [place] [address] [phone] 08/13/2025 1:00 PM EDT Office Visit [facility] [address] [place] [phone] Jerome Quick MD [address] [place] [address] [phone] documented as of this encounter Goals Goal Patient Goal Type Associated Problems Recent Progress Patient-Stated? Author <enter goal here> General Yes Kristel Mclaughlin LSW Note: Evaluation of progress towards goal: return home independent like prior to admission documented as of this encounter Visit Diagnoses Not on filedocumented in this encounter Additional Health Concerns Assessment Noted Time PHQ-9 Depression Total Score: 0 01/20/20 21 3:00 PM EST A Body Mass Index follow-up plan has been documented for the patient 07/29/2020 11:32 AM EDT documented as of this encounter Care Teams Cottrell Operator Relationship Specialty Start Date End Date Jerome Quick MD [address] [place] [address] [phone] PCP - General Internal Medicine 07/16/24 documented as of this encounter
--- OUTSIDE RECORDS SUMMARY | 2024-11-02 10:53 | XMS_ITS | Encounter Summary ---
Author Organization [facility] Shahab P. Tabatabai, Broker Sys tem Address [id number] [address] [place] [address] Care Team Providers Care Oil Processing Technician Name Role Phone Jerome Quick MD Primary Care Provider [phone] Reason for Visit * Reason Comments Med Refill Encounter Details Date Type Department Care Team (Late st Contact Info) Description 05/31/2021 Refill [facility] [address] [phone] Nani Tolbert, CLIENT SERVICES ACCOUNT MANAGER-OPERATION RESEARCH ANALYST [address] [place] [address] Med Refill Social History Tobacco Use Types Packs/Day Years Used Date Smoking Tobacco: Never Smokeless Tobacco: Never Alcohol Use Standard Drinks/Week Comments No 0 (1 standard drink = 0.6 oz pur e alcohol) PHQ-2 Answer Date Recorded Total Score 0 05/11/2021 Childcare Answer Date Recorded Childcare Unknown 07/07/2018 [...] Exposure Response Date Recorded In the last 10 days, have jaiden u been in contact with someone who was confirmed or suspected to have Coronavirus/COVID-19? No / Unsure 05/11/2021 8:41 AM EDT documented as of this encounter Miscellaneous Notes * Telephone Encounter - Melia Blue RN - 05/31/2021 11:52 AM EDT Spoke with pt and she states that she is only taking it about once a week and has more than enough right now documented in this encounter Plan of Treatment Upcoming Encounters Date Type Department Care Team (Latest Contact Info) Description 11/07/2024 2:00 PM EDT Follow Up Anticoagulation [facility] Medication Management [address] [place] [address] 02/14/2025 1:15 PM EST Office Visit [facility] [address] [place] [phone] Jerome Quick MD [address] [place] [address] 08/13/2025 1:00 PM EDT Office Visit [facility] [address] [place] [phone] Jerome Quick MD [address] [place] [address] documented as of this encounter Goals Goal Patient Goal Type Associated Problems Recent Progress Patient-Stated? Author <enter goal here> General Yes Kristel Mclaughlin LSW Note: Evaluation of progress towards goal: return home independent like prior to admission documented as of this encounter Visit Diagnoses Diagnosis Essential hypertension, benign documented in this encounter Additional Health Concerns Assessment Noted Time PHQ-9 Depression Total Score: 0 05/12/19 10:00 AM EDT A Body Mass Index follow-up plan has been documented for the patient 07/29/2020 11:32 AM EDT documented as of this encounter Care Teams Oil Processing Technician Relationship Specialty Start Date End Date Jerome Quick MD [address] [place] [address] PCP - General Internal Medicine 07/16/24 documented as of this encounter
--- OUTSIDE RECORDS SUMMARY | 2024-11-02 10:54 | XMS_ITS | Encounter Summary ---
Author Organization [facility] Address [address] [place] [phone] Phone Care Team Providers Care Coloring Room Worker Name Role Phone Anand Wiseman MD Primary Care Provider Unavailable Judith Turner APRN-AMMONIA BOX TENDER Unavailable [phone] Anand Wiseman MD Primary Care Provider Unavailable Encounter Details Date Type Department Care Team (Late st Contact Info) Description 12/04/2020 Orders Only [facility] [address] [place] [address] Conversion, Onbase Social History Tobacco Use Types Packs/Day Years Used Date Smoking Tobacco: Never Assessed Comments Unknown Sex and Gender Information Value Date Recorded Sex Assigned at Not on file Legal Sex Female 10:22 PM EST Gender Identity Not on file Sexual Orientation Not on file documented as of this encounter Plan of Treatment Upcoming Encounters Date Type Department Care Team (Late st Contact Info) Description 11/20/2024 11:20 AM EDT Office Visit [facility] [address] [address] Yvonne [place] MD 703 [facility] [address] [place] [address] Scheduled Orders Name Type Priority Associated Diagnoses Orde r Schedule OUTSIDE LAB SCAN Lab Ordered: 12/04/2020 documented as of this encounter Visit Diagnoses Not on filedocumented in this encounter Care Teams Coloring Room Worker Relationship Specialty Start Date End Date Anand Wiseman MD PCP - General 02/07/99 07/24/24 Judith Turner, PEOPLE MANAGER-AMMONIA BOX TENDER [address] [facility] 2, [address] [place] [address] PCP - MSSP ACO Attributed Provider 02/07/23 11/07/23 Anand Wiseman MD [address] [facility] 2, [address] [place] [address] PCP - General Family Medicine 07/25/24 documented as of this encounter
--- OUTSIDE RECORDS SUMMARY | 2024-11-02 10:54 | XMS_ITS | Encounter Summary ---
Author Organization [facility] Address [address] [place] [address] Phone Care Team Providers Care Gang Hemstitching Machine Operator Name Role Phone Anand Wiseman MD Primary Care Provider Unavailable Judith Turner WATER FITNESS INSTRUCTOR-SIX SIGMA BLACK TRAINER Unavailable [phone] Anand Wiseman MD Primary Care Provider Unavailable Encounter Details Date Type Department Care Team (Late st Contact Info) Description 10/12/2023 Patient Risk Score [facility] Care Management [address] [facility] [address] [place] [address] Social History Tobacco Use Types Packs/Day Years Used Date Smoking Tobacco: Never Smokeless Tobacco: Never Alcohol Use Standard Drinks/Week Comments Never 0 (1 standard drink = 0.6 oz pur e alcohol) Comments Unknown Sex and Gender Information Value Date Recorded Sex Assigned at Not on file Legal Sex Female 10:22 PM EST Gender Identity Not on file Sexual Orientation Not on file documented as of this encounter Plan of Treatment Upcoming Encounters Date Type Department Care Team (Late st Contact Info) Description 11/20/2024 11:20 AM EDT Office Visit [facility] 703 [facility] [address] [place] [address] Yvonne [place] MD 703 [facility] 2, [address] [place] [address] documented as of this encounter Visit Diagnoses Not on filedocumented in this encounter Additional Health Concerns Assessment Noted Time A fall risk assessment has been complete d for the patient 03/01/2023 12:21 PM EST documented as of this encounter Care Teams Gang Hemstitching Machine Operator Relationship Specialty Start Date End Date Anand Wiseman MD PCP - General 02/07/99 07/24/24 Judith Turner, WATER FITNESS INSTRUCTOR-SIX SIGMA BLACK TRAINER [address] [facility] 2, [address] [place] [address] PCP - MSSP ACO Attributed Provider 02/07/23 11/07/23 Anand Wiseman MD [address] [facility] 2, [address] [address] PCP - General Family Medicine 07/25/24 documented as of this encounter
--- OUTSIDE RECORDS SUMMARY | 2024-11-02 10:54 | XMS_ITS | Encounter Summary ---
Author Organization [facility] Address [address] [place] [address] Phone Care Team Providers Care Corrections Nurse Name Role Phone Anand Wiseman MD Primary Care Provider Unavailable Anand Wiseman MD Primary Care Provider Unavailable Encounter Details Date Type Department Care Team (Late st Contact Info) Description 05/11/2024 Patient Risk Score [facility] Care Management 75[address] [facility] [address] [place] [address] Social History Tobacco Use Types [...] Description 11/20/2024 11:20 AM EDT Office Visit [facility] 703 [facility] [address] [place] [address] Yvonne [place] MD 703 [facility] 2, [address] [place] [address] documented as of this encounter Visit Diagnoses Not on filedocumented in this encounter Additional Health Concerns Assessment Noted Time A fall risk assessment has been complete d for the patient 03/01/2023 12:21 PM EST documented as of this encounter Care Teams Corrections Nurse Relationship Specialty Start Date End Date Anand Wiseman MD PCP - General 02/07/99 07/24/24 Anand Wiseman MD PCP - General Family Medicine 07/25/24 documented as of this encounter
--- OUTSIDE RECORDS SUMMARY | 2024-11-02 10:54 | XMS_ITS | Encounter Summary ---
Author Organization [facility] Usound s tem Address [id number] [address] [place] [address] Care Team Providers Care Facial Operator Name Role Phone Jerome Quick MD Primary Care Provider [phone] Reason for Visit * Reason Comments Med Refill Encounter Details Date Type Department Care Team (Late st Contact Info) Description 11/02/2024 Refill [facility] Medication Management [address] [place] [address] Olinda Elena, [facility] [address] [place] [address] Atrial fibrillation, unspecified type ([facility]) Social History Tobacco Use Types Packs/Day Years [...] encounter Miscellaneous Notes * Telephone Encounter - Olinda Elena [facility] - 11/02/2024 6:24 AM EDT Electronic refill request received. Updated script sent to [facility] per request. Warfarin 1 mg tabs take 2-3 tabs PO daily as directed by PPMM #270 RF: 1 per CPA with Yvonne [place] MD. Olinda Elena, PharmD, BCPS November 02, 2024 8:24 AM documented in this encounter Plan of Treatment Upcoming Encounters Date Type Department Care Team (Latest Contact Info) Description 11/07/2024 2:00 PM EDT Follow Up Anticoagulation [facility] - Pharmacy Medication Management [address] [place] [address] 02/14/2025 1:15 PM EST Office Visit [facility] [address] [place] [phone] Jerome Quick MD [address] [place] [address] [phone] 08/13/2025 1:00 PM EDT Office Visit [facility] [address] [place] [phone] Jerome Quick MD [address] [place] [address] [phone] documented as of this encounter Goals Goal Patient Goal Type Associated Problems Recent Progress Patient-Stated? Author <enter goal here> General Yes Kristel Mclaughlin LSW Note: Evaluation of progress towards goal: return home independent like prior to admission documented as of this encounter Visit Diagnoses Diagnosis Atrial fibrillation, unspecified type (CMS-HCC) documented in this encounter Additional Health Concerns Assessment Noted Time PHQ-9 Depression Total Score: 5 08/09/19 25 1:00 PM EDT A Body Mass Index follow-up plan has been documented for the patient 07/29/2020 11:32 AM EDT documented as of this encounter Care Teams Facial Operator Relationship Specialty Start Date End Date Jerome Quick MD [address] [place] [address] PCP - General Internal Medicine 07/16/24 documented as of this encounter
--- OUTSIDE RECORDS SUMMARY | 2024-11-02 10:54 | XMS_ITS | Encounter Summary ---
Author Organization [facility] Address [address] [place] [address] Phone Care Team Providers Care Job Developer For Deaf Adults Name Role Phone Anand Wiseman MD Primary Care Provider Unavailable Anand Wiseman MD Primary Care Provider Unavailable Encounter Details Date Type Department Care Team (Late st Contact Info) Description 12/01/2023 Scanned Document [facility] [address] [place] [phone] Scanning, Generic Provider Social History Tobacco Use Types Packs/Day [...] Description 11/20/2024 11:20 AM EDT Office Visit [facility] 703 [facility] [address] [place] [address] Yvonne [place] MD 703 [facility] 2, [address] [place] [address] documented as of this encounter Procedures Procedure Name Priority Date/Time Associated Diagnosis Comments OUTSIDE IMAGING SCAN 12/01/2023 documented in this encounter Results * OUTSIDE IMAGING SCAN (12/01/2023) Anatomical Region Laterality Modality Other Narrative 12/01/2023 Ordered by an unspecified provider. us Generic Provider Scanning OUTSIDE SCAN Final Result documented in this encounter Visit Diagnoses Not on filedocumented in this encounter Additional Health Concerns Assessment Noted Time A fall risk assessment has been complete d for the patient 03/01/2023 12:21 PM EST documented as of this encounter Care Teams Job Developer For Deaf Adults Relationship Specialty Start Date End Date Anand Wiseman MD PCP - General 02/07/99 07/24/24 Anand Wiseman MD PCP - General Family Medicine 07/25/24 documented as of this encounter
--- OUTSIDE RECORDS SUMMARY | 2024-11-02 10:54 | XMS_ITS | Encounter Summary ---
Author Organization [facility] Address [address] [place] [address] Phone Care Team Providers Care Inside Account Executive Name Role Phone Anand Wiseman MD Primary Care Provider Unavailable Judith Turner STOKER INSTALLER-LEAD SOFTWARE ARCHITECT Unavailable [phone] Anand Wiseman MD Primary Care Provider Unavailable Encounter Details Date Type Department Care Team (Late st Contact Info) Description 03/25/2023 Scanned Document [facility] [address] [place] [phone] Scanning, Generic Provider Social History Tobacco Use [...] Recorded In the last 10 days, have yo u been in contact with someone who was confirmed or suspected to have Coronavirus/COVID-19? No / Unsure 03/14/2023 12:03 PM EST documented as of this encounter Plan of Treatment Upcoming Encounters Date Type Department Care Team (Late st Contact Info) Description 11/20/2024 11:20 AM EDT Office Visit [facility] 703 [facility] [address] [place] [address] Yvonne [place] MD [address] [facility] [address], [address] [place] [address] Scheduled Orders Name Type Priority Associated Diagnoses Orde r Schedule PULMONARY FUNCTION TESTING PFT Ordered: 03/25/2023 documented as of this encounter Procedures Procedure Name Priority Date/Time Associated Diagnosis Comments OUTSIDE IMAGING SCAN 03/25/2023 documented in this encounter Results * OUTSIDE IMAGING SCAN (03/25/2023) Anatomical Region Laterality Modality Other Narrative 03/25/2023 Ordered by an unspecified provider. Generic Provider Scanning OUTSIDE SCAN Final Result documented in this encounter Visit Diagnoses Not on filedocumented in this encounter Additional Health Concerns Assessment Noted Time A fall risk assessment has been complete d for the patient 03/01/2023 12:21 PM EST documented as of this encounter Care Teams Inside Account Executive Relationship Specialty Start Date End Date Anand Wiseman MD PCP - General 02/07/99 07/24/24 Judith Turner, STOKER INSTALLER-LEAD SOFTWARE ARCHITECT [address], [address] [place] [address] PCP - MSSP ACO Attributed Provider 02/07/23 11/07/23 Anand Wiseman MD [address], [address] [place] [address] PCP - General Family Medicine 07/25/24 documented as of this encounter
--- OUTSIDE RECORDS SUMMARY | 2024-11-02 10:54 | XMS_ITS | Encounter Summary ---
Author Organization [facility] Address [address] [place] [address] Phone Care Team Providers Care Lining Cutter Name Role Phone Anand Wiseman MD Primary Care Provider Unavailable Anand Wiseman MD Primary Care Provider Unavailable Encounter Details Date Type Department Care Team (Late st Contact Info) Description 01/11/2024 [facility] 7580 [facility] [address] [place] [address] Social History Tobacco Use Types [...] suspected to have Coronavirus/COVID-19? No / Unsure 12/19/2023 9:51 AM EST documented as of this encounter Plan of Treatment Upcoming Encounters Date Type Department Care Team (Late st Contact Info) Description 11/20/2024 11:20 AM EDT Office Visit [place] [address] [facility] [address] [place] [address] Yvonne [place] MD 703 [facility] 2, [address] [place] [address] documented as of this encounter Visit Diagnoses Not on filedocumented in this encounter Additional Health Concerns Assessment Noted Time A fall risk assessment has been complete d for the patient 03/01/2023 12:21 PM EST documented as of this encounter Care Teams Lining Cutter Relationship Specialty Start Date End Date Anand Wiseman MD PCP - General 02/07/99 07/24/24 Anand Wiseman MD PCP - General Family Medicine 07/25/24 documented as of this encounter
--- OUTSIDE RECORDS SUMMARY | 2024-11-02 10:54 | XMS_ITS | Encounter Summary ---
Author Organization [facility] Address [address] [place] [address] Phone Care Team Providers Care Test Preparation Tutor Name Role Phone Anand Wiseman MD Primary Care Provider Unavailable Judith Turner TC OPERATOR-URBAN PLANNING TEACHER Unavailable [phone] Anand Wiseman MD Primary Care Provider Unavailable Encounter Details Date Type Department Care Team (Late st Contact Info) Description 08/11/2023 Patient Risk Score [facility] Care Management 75[address] [facility] [address] [place] [address] Social History Tobacco Use Types [...] Description 11/20/2024 11:20 AM EDT Office Visit [facility] 703 [facility] [address] [place] [address] Yvonne [place] MD 703 [facility] 2, [address] [place] [address] documented as of this encounter Visit Diagnoses Not on filedocumented in this encounter Additional Health Concerns Assessment Noted Time A fall risk assessment has been complete d for the patient 03/01/2023 12:21 PM EST documented as of this encounter Care Teams Test Preparation Tutor Relationship Specialty Start Date End Date Anand Wiseman MD PCP - General 02/07/99 07/24/24 Judith Turner, TC OPERATOR-URBAN PLANNING TEACHER [address] [facility] 2, [address] [place] [address] PCP - MSSP ACO Attributed Provider 02/07/23 11/07/23 Anand Wiseman MD [address] [facility] 2, [address] [address] PCP - General Family Medicine 07/25/24 documented as of this encounter
--- OUTSIDE RECORDS SUMMARY | 2024-11-02 10:54 | XMS_ITS | Encounter Summary ---
Author Organization [facility] Address [address] [place] [address] Phone Care Team Providers Care Powder Room Attendant Name Role Phone Anand Wiseman MD Primary Care Provider Unavailable Anand Wiseman MD Primary Care Provider Unavailable Encounter Details Date Type Department Care Team (Late st Contact Info) Description 03/13/2024 Patient Risk Score [facility] Care Management 75[address] [facility] [address] [place] [address] Social History Tobacco Use Types [...] Description 11/20/2024 11:20 AM EDT Office Visit [facility] 703 [facility] [address] [place] [address] Yvonne [place] MD 703 [facility] [address], [address] [place] [address] documented as of this encounter Visit Diagnoses Not on filedocumented in this encounter Additional Health Concerns Assessment Noted Time A fall risk assessment has been complete d for the patient 03/01/2023 12:21 PM EST documented as of this encounter Care Teams Powder Room Attendant Relationship Specialty Start Date End Date Anand Wiseman MD PCP - General 02/07/99 07/24/24 Anand Wiseman MD PCP - General Family Medicine 07/25/24 documented as of this encounter
--- OUTSIDE RECORDS SUMMARY | 2024-11-02 10:54 | XMS_ITS | Encounter Summary ---
Author Organization [facility] Address [id number] [address] [place] [address] Care Team Providers Care Medical Records Specialist Name Role Phone Jerome Quick MD Primary Care Provider [phone] Encounter Details Date Type Department Care Team (Late st Contact Info) Description 08/31/2022 Orders Only [facility] [address] [place] [phone] External, Scanning Provider Social History Tobacco Use [...] 11/07/2024 2:00 PM EDT Follow Up Anticoagulation [facility] Medication Management [address] [place] [address] 02/14/2025 1:15 PM EST Office Visit [facility] [address] [place] [phone] Jerome Quick MD [address] [place] [phone] 08/13/2025 1:00 PM EDT Office Visit [facility] Family Medicine [address] [place] [phone] Jerome Quick MD [address] [place] [address] [phone] documented as of this encounter Goals Goal Patient Goal Type Associated Problems Recent Progress Patient-Stated? Author <enter goal here> General Yes Kristel Mclaughlin LSW Note: Evaluation of progress towards goal: return home independent like prior to admission documented as of this encounter Procedures Procedure Name Priority Date/Time Associated Diagnosis Comments XR ABDOMEN AP 1 VW Routine 08/31/2022 4:28 PM EDT MULTIPLE LABS Routine 08/05/2022 documented in this encounter Results * X-ray abdomen ap 1 view (08/31/2022 4:28 PM EDT) Anatomical Region Laterality Modality Body, Abdomen N/A Computed Radiogr aphy us Scanning Provider External IMG DIAGNOSTIC IMAGIN G ORDERABLES Final Result * Multiple labs (08/05/2022) 08/05/2022 us Scanning Provider External [place] IMAGING Final Result MANUALLY TRANSCRIBED RESULTS documented in this encounter Visit Diagnoses Not on filedocumented in this encounter Additional Health Concerns Assessment Noted Time PHQ-9 Depression Total Score: 8 08/03/19 10:00 AM EDT A Body Mass Index follow-up plan has been documented for the patient 07/29/2020 11:32 AM EDT documented as of this encounter Care Teams Medical Records Specialist Relationship Specialty Start Date End Date Jerome Quick MD [facility] [place] [address] PCP - General Internal Medicine 07/16/24 documented as of this encounter
--- OUTSIDE RECORDS SUMMARY | 2024-11-02 10:54 | XMS_ITS | Clinical Summary ---
Author Organization [facility] Address [address] [place] [address], [address] [place] [address] Care Team Providers Care Front Office Spec Name Role Phone Anand Wiseman MD Primary Care Provider [phone] Allergies Active Allergy Reactions Criticality Noted Date Comments Codeine 08/26/2011 nausea Morphine 08/26/2011 nausea Medications metoprolol (LOPRESSOR) 50 MG tablet Take 150 mg by mouth 2 times daily. Active therapeutic multivitamin-min erals (THERAGRAN-M) tablet Take 1 tablet by mouth daily. Active Ascorbic Acid (VITAMIN C) 500 MG tablet Take 500 mg by mouth daily. Active Family History Medical History Relation Name Comments Kidney Disease Brother stones Diabetes Father High Blood Pressure Father Cancer Mother colon High Blood Pressure Mother Kidney Disease Sister stones Relation Name Status Comments Brother Father Mother Sister Social History Tobacco Use Types Packs/Day Years Used Date Smoking Tobacco: Never Alcohol Use Standard Drinks/Week Comments No 0 (1 standard drink = 0.6 oz pur e alcohol) Comments Unknown Sex and Gender Information Value Date Recorded Sex Assigned at Not on file Legal Sex Female 9:30 PM EST Gender Identity Not on file Sexual Orientation Not on file Last Filed Vital Signs Vital Sign Reading Time Taken Comments Blood Pressure 146/84 09/02/2011 9:09 AM EDT Pulse 72 09/02/2011 9:09 AM EDT Temperature - - Respiratory Rate - - Oxygen Saturation - - Inhaled Oxygen Concentration - - Weight 97.5 kg (215 lb) 09/02/2011 9:09 AM EDT Height 170.2 cm (5' 7 ) 09/02/2011 9:09 AM EDT Body Mass Index 33.67 09/02/2011 9:09 AM EDT Plan of Treatment Not on file Care Teams Front Office Spec Relationship Specialty Start Date End Date Anand Wiseman MD [address] [place] [address] PCP - General 09/02/11
--- OUTSIDE RECORDS SUMMARY | 2024-11-02 10:54 | XMS_ITS | Encounter Summary ---
Author Organization [facility] [employer] Sys tem Address [id number] [address] [place] [address] Care Team Providers Care Stockroom Worker Name Role Phone Jerome Quick MD Primary Care Provider [phone] Encounter Details Date Type Department Care Team (Late st Contact Info) Description 10/09/2020 Orders Only [facility] [address] [place] [address] Anand Wiseman MD [address]. Provider retired 05/08/24 [place], [place] [id number] Social History Tobacco Use Types Packs/Day Years Used Date Smoking Tobacco: Never Smokeless Tobacco: Never Alcohol Use Standard Drinks/Week Comments No 0 (1 standard drink = 0.6 oz pur e alcohol) PHQ-2 Answer Date Recorded Total Score 5 07/29/2020 Childcare Answer Date Recorded Childcare Unknown 07/07/2018 [...] have Coronavirus / COVID-19? No / Unsure 10/08/2020 2:36 PM EDT documented as of this encounter Plan of Treatment Upcoming Encounters Date Type Department Care Team (Latest Contact Info) Description 11/07/2024 2:00 PM EDT Follow Up Anticoagulation [facility] - Pharmacy Medication Management [address] [place] [address] 02/14/2025 1:15 PM EST Office Visit [facility] [address] [place] [phone] Jerome Quick MD [address] [place] [address] [phone] 08/13/2025 1:00 PM EDT Office Visit [facility] [address] [place] [phone] Jerome Quick MD [address] [place] [address] [phone] documented as of this encounter Goals Goal Patient Goal Type Associated Problems Recent Progress Patient-Stated? Author <enter goal here> General Yes Kristel Mclaughlin LSW Note: Evaluation of progress towards goal: return home independent like prior to admission documented as of this encounter Visit Diagnoses Not on filedocumented in this encounter Additional Health Concerns Assessment Noted Time PHQ-9 Depression Total Score: 5 07/30/19 21 11:00 AM EDT A Body Mass Index follow-up plan has been documented for the patient 07/29/2020 11:32 AM EDT documented as of this encounter Care Teams Stockroom Worker Relationship Specialty Start Date End Date Jerome Quick MD [address] [place] [address] [phone] PCP - General Internal Medicine 07/16/24 documented as of this encounter
--- OUTSIDE RECORDS SUMMARY | 2024-11-02 10:54 | XMS_ITS | Encounter Summary ---
Author Organization [facility] Address [address] [place] [address] Phone Care Team Providers Care Body Former Name Role Phone Anand Wiseman MD Primary Care Provider Unavailable Anand Wiseman MD Primary Care Provider Unavailable Encounter Details Date Type Department Care Team (Late st Contact Info) Description 04/10/2024 Patient Risk Score [facility] Care Management [address] [facility] [address] [place] [address] Social History Tobacco Use Types [...] 11:20 AM EDT Office Visit [facility] 703 [facility] [address] [place] [address] Yvonne Smith MD 703 [facility] 2, [address] [place] [address] documented as of this encounter Visit Diagnoses Not on filedocumented in this encounter Additional Health Concerns Assessment Noted Time A fall risk assessment has been complete d for the patient 03/01/2023 12:21 PM EST documented as of this encounter Care Teams Body Former Relationship Specialty Start Date End Date Anand Wiseman MD PCP - General 02/07/99 07/24/24 Anand Wiseman MD PCP - General Family Medicine 07/25/24 documented as of this encounter
--- OUTSIDE RECORDS SUMMARY | 2024-11-02 10:54 | XMS_ITS | Clinical Summary ---
Author Organization [facility] Address [address] [place], [place] [id number] Care Team Providers Care Investigative Research Specialist Name Role Phone ramiro SaraAnand Primary Care Provider [phone] Allergies Active Allergy Reactions Criticality Noted Date Comments Aspirin Other: See Comments 10/07/2020 Ulcers Codeine Other: See Comments 08/26/2011 nausea nausea Ibuprofen Other: See Comments 10/07/2020 Ulcers Morphine Other: See Comments 08/26/2011 nausea nausea Opioids - Morphine Analogues Other: See Comments 10/07/2020 Medications apixaban (ELIQUIS) 5 mg tab(s) 1 tab BID 02/18/2020 Active furosemide (LASIX) 40 mg tablet TAKE ONE TABLET BY MOUTH DAILY 03/28/2020 Active losartan (COZAAR) 100 mg tablet TAKE ONE TABLET BY MOUTH DAILY 09/22/2020 Active cetirizine (ZYRTEC) 10 mg tablet Take 10 mg by mouth. 03/05/2019 Active metoprolol tartrate, short acting, (LOPRESSOR) 100 mg tablet TAKE 1 AND 1/2 TABLET BY MOUTH TWO TIMES A DAY 09/22/[address] (PROTONIX) 40 mg tablet TAKE ONE TABLET BY MOUTH TWICE A DAY 09/29/2020 Active potassium chloride ER (KLOR-CON M20) 20 mEq tablet TAKE ONE TABLET BY MOUTH DAILY 07/08/2020 Active flecainide (TAMBOCOR) 50 mg tablet Take 50 mg by mouth. 08/08/2020 Active Immunizations Immunization Administration Dates Next Due AS03 adjuvant 11/11/2019,11/24/2017 influenza (HD-IIV3) vaccine, age 65+ yr, high dose, trivalent, PF (FLUZONE HIGH-DOSE) 11/16/2016,11/11/2014,01/10/2014 influenza (ccIIV4) vaccine, age 6+ mo, quadrivalent (FLUCELVAX) 12/11/2018 pneumococcal conjugate (PCV1 3) vaccine, 13 valent (PREVNAR 13) 11/16/2016 pneumococcal polysaccharide (PPV23) vaccine, 23 valent (PNEUMOVAX 23) 11/24/2017,07/26/2012 Family History Medical History Relation Comments Diabetes Father Heart disease Father Colon Cancer Mother Relation Status Comments Father Mother Social History Tobacco Use Types Packs/Day Years Used Date Smoking Tobacco: Never Smokeless Tobacco: Never Area Deprivation Index Answer Date Sony rded National Score (1-100), lower number is lower ri sk Not on file 10/07/2020 State Score (1-10), lower number is lower risk N ot on file 10/07/2020 Data from: https://www.neighborhoodatlas.medicine.[facility]/. Last address used for calculation Not on file 10/07/2020 Comments No Sex and Gender Information Value Date Recorded Sex Assigned at Not on file Legal Sex Female 12:07 PM EDT Gender Identity Not on file Sexual Orientation Not on file Last Filed Vital Signs Vital Sign Reading Time Taken Comments Blood Pressure 160/87 10/07/2020 11:13 AM EDT Pulse 75 10/07/2020 11:13 AM EDT Temperature 35.9 C (96.7 F) 10/07/2020 11:13 AM EDT Respiratory Rate 16 10/07/2020 11:1 3 AM EDT Oxygen Saturation 95% 10/07/2020 11: 13 AM EDT Inhaled Oxygen Concentration - - Weight 115.6 kg (254 lb 12.8 oz) 2020 11:13 AM EDT Height 168.9 cm (5' 6.5 ) 10/07/2020 11 :13 AM EDT Body Mass Index 40.51 10/07/2020 11:13 AM EDT Plan of Treatment Health Maintenance Due Date Last Done Comments Anxiety Screening 09/05/1963 Depression Screening 09/05/1963 DTaP,Tdap,Td Vaccine (1 - Tdap) 1964 Shingrix Vaccine (1 of 2) 09/05/1995 Bone Density Screening 2010 RSV Vaccine (1 - 1-dose 75+ series) 2020 Diabetes Screening 01/25/2023 01/26/2020, 0 07/30/2019, 04/03/2019, Additional history exists Advance Directive Discussion 02/08/2024 Influenza Vaccine (#1) 2024 9, 11/16/2016, 11/11/2014, Additional history exists Pneumococcal Vaccine: 50+ Completed 2017, 11/16/2016, 07/26/2012 Insurance MEDICARE Care Teams Investigative Research Specialist Relationship Specialty Start Date End Date Anand Bojorquez [address] [place] [address] PCP - General Family Medicine 10/07/20
--- OUTSIDE RECORDS SUMMARY | 2024-11-02 10:54 | XMS_ITS | Clinical Summary ---
Author Organization [facility] Address [address] [place] [address] Care Team Providers Care Tank Hoop Bender Name Role Phone Unavailable Primary Care Provider Unavailabl e Social History Tobacco Use Types Packs/Day Years Used Date Smoking Tobacco: Never Assessed Comments Unknown Sex and Gender Information Value Date Recorded Sex Assigned at Not on file Legal Sex Female 7:33 PM EDT Gender Identity Not on file Sexual Orientation Not on file Plan of Treatment Health Maintenance Due Date Last Done Comments Influenza Vaccine (#1) 2024 4, 12/14/2022, 11/10/2021, Additional history exists Pneumococcal Vaccine: 65+ Years Completed 11/24/2017, 11/16/2016, 07/26/2012
--- OUTSIDE RECORDS SUMMARY | 2024-11-02 10:54 | XMS_ITS | Encounter Summary ---
Author Organization [facility] [employer] Sys tem Address [id number] [address] [place] [address] Care Team Providers Care Telephone Lineworker Name Role Phone Jerome Quick MD Primary Care Provider [phone] Encounter Details Date Type Department Care Team (Late st Contact Info) Description 08/06/2022 Telephone [facility] [address] [place] [address] Anadn Wiseman MD [address]. Provider retired 05/08/24 [place], [place] [phone] Social History Tobacco Use Types Packs/Day Years [...] encounter Miscellaneous Notes * Telephone Encounter - Anand Wiseman MD - 08/06/2022 7:45 AM EDT Creat 1.55 Free t4 1.92 documented in this encounter Plan of Treatment Upcoming Encounters Date Type Department Care Team (Latest Contact Info) Description 11/07/2024 2:00 PM EDT Follow Up Anticoagulation [facility] - Pharmacy Medication Management [address] [place] [address] 02/14/2025 1:15 PM EST Office Visit [facility] [address] [place] [phone] Jerome Quick MD [address] [place] [address] 08/13/2025 1:00 PM EDT Office Visit [facility] [address] [place] [phone] Jerome Quick MD [address] [place] [address] [phone] documented as of this encounter Goals Goal [...] documented as of this encounter Care Teams Telephone Lineworker Relationship Specialty Start Date End Date Jerome Quick MD [address] [place] [address] PCP - General Internal Medicine 07/16/24 documented as of this encounter
--- OUTSIDE RECORDS SUMMARY | 2024-11-02 10:54 | XMS_ITS | Encounter Summary ---
Author Organization [facility] Sys tem Address [id number] [address] [place] [address] Care Team Providers Care Graphic Design Professor Name Role Phone Jerome Quick MD Primary Care Provider [phone] Encounter Details Date Type Department Care Team (Late st Contact Info) Description 02/22/2024 Orders Only [facility] [address] [place] [phone] Kathya Dobbs CMA Social History Tobacco Use Types Packs/Day Years Used Date Smoking Tobacco: Never Smokeless Tobacco: Never Alcohol Use Standard Drinks/Week Comments No 0 (1 standard drink = 0.6 oz pur e alcohol) PHQ-2 Answer Date Recorded Total Score 5 01/25/2024 Childcare Answer Date Recorded Childcare Unknown 07/07/2018 Employment Answer Date Recorded Employment Unknown 07/07/2018 Hunger Screening Answer Date Recorded Within the past 12 months we worried whether our food would run out before we got money to buy more. Never True 01/25/2024 Within the past 12 months th e food we bought just didn't last and we didn't have money to get more. Never True 01/25/2024 Purpose - Life Answer Date Recorded Purpose [...] 11/07/2024 2:00 PM EDT Follow Up Anticoagulation [facility] - Pharmacy Medication Management [address] [place] [address] 02/14/2025 1:15 PM EST Office Visit [facility] [address] [place] [phone] Jerome Quick MD [address] [place] [address] [phone] 08/13/2025 1:00 PM EDT Office Visit [facility] [address] [place] [address] [phone] Jerome Quick MD [address] [place] [address] [phone] documented as of this encounter Goals Goal Patient Goal Type Associated Problems Recent Progress Patient-Stated? Author <enter goal here> General Yes Kristel Mclaughlin LSW Note: Evaluation of progress towards goal: return home independent like prior to admission documented as of this encounter Procedures Procedure Name Priority Date/Time Associated Diagnosis Comments PULMONARY FUNCTION TEST Routine 01/27/2024 documented in this encounter Results * Pulmonary function test (01/27/2024) 01/27/2024 us Scanning Provider External PFT ORDERABLES Final Result MANUALLY TRANSCRIBED RESULTS documented in this encounter Visit Diagnoses Not on filedocumented in this encounter Additional Health Concerns Assessment Noted Time PHQ-9 Depression Total Score: 5 01/25/20 24 7:00 AM EST A Body Mass Index follow-up plan has been documented for the patient 07/29/2020 11:32 AM EDT documented as of this encounter Care Teams Graphic Design Professor Relationship Specialty Start Date End Date Jerome Quick MD [facility] [place] [address] PCP - General Internal Medicine 07/16/24 documented as of this encounter
--- OUTSIDE RECORDS SUMMARY | 2024-11-02 10:54 | XMS_ITS | Encounter Summary ---
Author Organization [facility] [employer] Address [id number] [address] [place] [address] Care Team Providers Care Associate Application Developer Name Role Phone Jerome Quick MD Primary Care Provider [phone] Encounter Details Date Type Department Care Team (Late st Contact Info) Description 11/07/2020 Orders Only [facility] [address] [place] [phone] External, Scanning Provider Social History Tobacco Use [...] have Coronavirus / COVID-19? No / Unsure 10/29/2020 9:53 AM EDT documented as of this encounter Plan of Treatment Upcoming Encounters Date Type Department Care Team (Latest Contact Info) Description 11/07/2024 2:00 PM EDT Follow Up Anticoagulation [facility] - Pharmacy Medication Management [address] [place] [address] 02/14/2025 1:15 PM EST Office Visit [facility] Family Medicine [address] [place] [address] [phone] Jerome Quick MD [address] [place] [phone] 08/13/2025 1:00 PM EDT Office Visit [facility] Medicine [address] [place] [address] [phone] Jerome Quick MD [address] [place] [address] [phone] documented as of this encounter Goals Goal [...] documented as of this encounter Care Teams Associate Application Developer Relationship Specialty Start Date End Date Jerome Quick MD [address] [place] [address] [phone] PCP - General Internal Medicine 07/16/24 documented as of this encounter
--- OUTSIDE RECORDS SUMMARY | 2024-11-02 10:54 | XMS_ITS | Encounter Summary ---
Author Organization [facility] Sys tem Address [facility][id number] [address] [place] [address] Care Team Providers Care Diet Tech Name Role Phone Jerome Quick MD Primary Care Provider [phone] Encounter Details Date Type Department Care Team (Late st Contact Info) Description 09/19/2024 Orders Only [facility] [address] [place] [phone] External, Scanning Provider Social History Tobacco Use [...] 11/07/2024 2:00 PM EDT Follow Up Anticoagulation [facility] - Pharmacy Medication Management [address] [place] [address] 02/14/2025 1:15 PM EST Office Visit [facility] [address] [place] [phone] Jerome Quick MD [address] [place] [address] [phone] 08/13/2025 1:00 PM EDT Office Visit [facility] Family Medicine [address] [place] [address] [phone] Jerome Quick MD [address] [place] [address] [phone] documented as of this encounter Goals Goal Patient Goal Type Associated Problems Recent Progress Patient-Stated? Author <enter goal here> General Yes Kristel Mclaughlin LSW Note: Evaluation of progress towards goal: return home independent like prior to admission documented as of this encounter Procedures Procedure Name Priority Date/Time Associated Diagnosis Comments URINE CULTURE Routine 09/19/2024 2:13 PM EDT documented in this encounter Results * Urine Culture (09/19/2024 2:13 PM EDT) [...] documented as of this encounter Care Teams Diet Tech Relationship Specialty Start Date End Date Jerome Quick MD [facility] [place] [address] PCP - General Internal Medicine 07/16/24 documented as of this encounter
--- OUTSIDE RECORDS SUMMARY | 2024-11-02 10:54 | XMS_ITS | Encounter Summary ---
Author Organization [facility] Address [address] [place] [phone] Phone Care Team Providers Care Reference And Instruction Librarian Name Role Phone Anand Wiseman MD Primary Care Provider Unavailable Judith Turner APRN-INDEPENDENT CONTRACTOR Unavailable [phone] Anand Wiseman MD Primary Care Provider Unavailable Encounter Details Date Type Department Care Team (Late st Contact Info) Description 08/05/2022 Orders Only [facility] [address] [place] [address] Conversion, Onbase Social History Tobacco Use Types [...] Description 11/20/2024 11:20 AM EDT Office Visit [facility] [address] [address] Yvonne Smith MD 703 [facility] 2, [address] [place] [address] Scheduled Orders Name Type Priority Associated Diagnoses Orde r Schedule OUTSIDE LAB SCAN Lab Ordered: 08/05/2022 documented as of this encounter Visit Diagnoses Not on filedocumented in this encounter Care Teams Reference And Instruction Librarian Relationship Specialty Start Date End Date Anand Wiseman MD PCP - General 02/07/99 07/24/24 Judith Turner, BIOMEDICAL ANALYTICAL SCIENTIST-INDEPENDENT CONTRACTOR [address] [facility] 2, [address] [place] [address] PCP - MSSP ACO Attributed Provider 02/07/23 11/07/23 Anand Wiseman MD [address] [facility] 2, [address] [place] [address] PCP - General Family Medicine 07/25/24 documented as of this encounter
--- OUTSIDE RECORDS SUMMARY | 2024-11-02 10:54 | XMS_ITS | Encounter Summary ---
Author Organization [facility] Address [address] [place] [address] Phone Care Team Providers Care Liner Man Name Role Phone Anand Wiseman MD Primary Care Provider Unavailable Encounter Details Date Type Department Care Team (Late st Contact Info) Description 09/13/2024 Scanned Document [facility] [address] [place] [phone] Scanning, Generic Provider Social History Tobacco Use [...] Description 11/20/2024 11:20 AM EDT Office Visit [facility] [address] [address] Yvonne Smith MD 703 [facility] 2, [address] [place] [address] documented as of this encounter Procedures Procedure Name Priority Date/Time Associated Diagnosis Comments OUTSIDE LAB SCAN 09/13/2024 OUTSIDE LAB SCAN 09/13/2024 documented in this encounter Results * OUTSIDE LAB SCAN (09/13/2024) Narrative 09/13/2024 Ordered by an unspecified provider. us Generic Provider Scanning OUTSIDE SCAN Final Result * OUTSIDE LAB SCAN (09/13/2024) Narrative 09/13/2024 Ordered by an unspecified provider. us Generic Provider Scanning OUTSIDE SCAN Final Result documented in this encounter Visit Diagnoses Not on filedocumented in this encounter Additional Health Concerns Assessment Noted Time A fall risk assessment has been complete d for the patient 07/25/2024 10:23 AM EDT documented as of this encounter Care Teams Liner Man Relationship Specialty Start Date End Date Anand Wiseman MD PCP - General Family Medicine 07/25/24 documented as of this encounter
--- OUTSIDE RECORDS SUMMARY | 2024-11-02 10:54 | XMS_ITS | Encounter Summary ---
Author Organization [facility] Address [address] [place] [address] Phone Care Team Providers Care Macadam Raker Name Role Phone Anand Wiseman MD Primary Care Provider Unavailable Encounter Details Date Type Department Care Team (Late st Contact Info) Description 08/10/2024 Patient Risk Score [facility] Care Management [address] [facility] [address] [place] [address] Social History Tobacco Use Types [...] Description 11/20/2024 11:20 AM EDT Office Visit [facility] 703 [facility] [address] [place] [address] Yvonne Smith MD 703 [facility] 2, [address] [place] [address] documented as of this encounter Visit Diagnoses Not on filedocumented in this encounter Additional Health Concerns Assessment Noted Time A fall risk assessment has been complete d for the patient 07/25/2024 10:23 AM EDT documented as of this encounter Care Teams Macadam Raker Relationship Specialty Start Date End Date Anand Wiseman MD PCP - General Family Medicine 07/25/24 documented as of this encounter
--- OUTSIDE RECORDS SUMMARY | 2024-11-02 10:54 | XMS_ITS | Encounter Summary ---
Author Organization [facility] Address [address] [place] [address] Phone Care Team Providers Care Dice Table Operator Name Role Phone Anand Wiseman MD Primary Care Provider Unavailable Judith Turner RN FIELD CASE MANAGER-ROLL MACHINE OPERATOR Unavailable [phone] Anand Wiseman MD Primary Care Provider Unavailable Encounter Details Date Type Department Care Team (Late st Contact Info) Description 09/10/2023 Patient Risk Score [facility] Care Management 75[address] [facility] [address] [place] [address] Social History Tobacco Use Types [...] Description 11/20/2024 11:20 AM EDT Office Visit [facility] 703 [facility] [address] [place] [address] Yvonne Smith MD 703 [facility] 2, [address] [place] [address] documented as of this encounter Visit Diagnoses Not on filedocumented in this encounter Additional Health Concerns Assessment Noted Time A fall risk assessment has been complete d for the patient 03/01/2023 12:21 PM EST documented as of this encounter Care Teams Dice Table Operator Relationship Specialty Start Date End Date Anand Wiseman MD PCP - General 02/07/99 07/24/24 Judith Turner, RN FIELD CASE MANAGER-ROLL MACHINE OPERATOR [address] [facility] 2, [address] [place] [address] PCP - MSSP ACO Attributed Provider 02/07/23 11/07/23 Anand Wiseman MD [address] [facility] 2, [address] [address] PCP - General Family Medicine 07/25/24 documented as of this encounter
--- OUTSIDE RECORDS SUMMARY | 2024-11-02 10:54 | XMS_ITS | Encounter Summary ---
Author Organization [facility] Address [address] [place] [address] Phone Care Team Providers Care Assistant Activities Director Name Role Phone Anand Wiseman MD Primary Care Provider Unavailable Anand Wiseman MD Primary Care Provider Unavailable Encounter Details Date Type Department Care Team (Late st Contact Info) Description 02/10/2024 Patient Risk Score [facility] Care Management 75[address] [facility] [address] [place] [address] Social History Tobacco Use Types [...] Description 11/20/2024 11:20 AM EDT Office Visit [facility] 703 [facility] [address] [place] [address] Yvonne Smith MD 7[address] [facility] 2, [address] [place] [address] documented as of this encounter Visit Diagnoses Not on filedocumented in this encounter Additional Health Concerns Assessment Noted Time A fall risk assessment has been complete d for the patient 03/01/2023 12:21 PM EST documented as of this encounter Care Teams Assistant Activities Director Relationship Specialty Start Date End Date Anand Wiseman MD PCP - General 02/07/99 07/24/24 Anand Wiseman MD PCP - General Family Medicine 07/25/24 documented as of this encounter
--- OUTSIDE RECORDS SUMMARY | 2024-11-02 10:54 | XMS_ITS | Encounter Summary ---
Author Organization [facility] Sys [facility] Address [id number] [address] [place] [address] Care Team Providers Care Fishing Vessel Deckhand Name Role Phone Jerome Quick MD Primary Care Provider [phone] Encounter Details Date Type Department Care Team (Late st Contact Info) Description 09/24/2022 Orders Only [facility] [address] [place] [phone] External, Scanning Provider Social History Tobacco Use [...] 11/07/2024 2:00 PM EDT Follow Up Anticoagulation [facility] - Pharmacy Medication Management [address] [place] [address] 02/14/2025 1:15 PM EST Office Visit [facility] [address] [place] [phone] Jerome Quick MD [address] [place] [address] [phone] 08/13/2025 1:00 PM EDT Office Visit [facility] [address] [place] [address] [phone] Jerome Quick MD [address] [place] [address] [phone] documented as of this encounter Goals Goal [...] documented as of this encounter Care Teams Fishing Vessel Deckhand Relationship Specialty Start Date End Date Jerome Quick MD [address] [place] [address] [phone] PCP - General Internal Medicine 07/16/24 documented as of this encounter
--- OUTSIDE RECORDS SUMMARY | 2024-11-02 10:54 | XMS_ITS | Encounter Summary ---
Author Organization [facility] Address [address] [place] [address] Phone Care Team Providers Care Elevator Starter Name Role Phone Anand Wiseman MD Primary Care Provider Unavailable Anand Wiseman MD Primary Care Provider Unavailable Encounter Details Date Type Department Care Team (Late st Contact Info) Description 07/11/2024 Patient Risk Score [facility] Care Management [address] [facility] [address] [place] [address] Social History Tobacco Use Types [...] Description 11/20/2024 11:20 AM EDT Office Visit [facility] [address] [facility] [address] [place] [address] Yvonne Smith MD [address] [facility] [address] [place] [address] documented as of this encounter Visit Diagnoses Not on filedocumented in this encounter Additional Health Concerns Assessment Noted Time A fall risk assessment has been complete d for the patient 03/01/2023 12:21 PM EST documented as of this encounter Care Teams Elevator Starter Relationship Specialty Start Date End Date Anand Wiseman MD PCP - General 02/07/99 07/24/24 Anand Wiseman MD PCP - General Family Medicine 07/25/24 documented as of this encounter
--- OUTSIDE RECORDS SUMMARY | 2024-11-02 10:54 | XMS_ITS | Encounter Summary ---
Author Organization [employer] [facility] Address [id number] [address] [place] [address] Care Team Providers Care Melt Room Operator Name Role Phone Jerome Quick MD Primary Care Provider [phone] Reason for Referral * Cardiology (Routine) - Closed Specialty Diagnoses / Procedures Referred By Jenny walker Referred To Contact Diagnoses Other pulmonary embolism without acute cor pulmonale, unspecified chronicity ([facility]) Paroxysmal A-fib ([facility] [place]) Procedures ECG 12 lead Anand Wiseman MD Phone: tel: fax: Referral ID Status Reason Start Date Expiration Date Visits Re quested Visits Authorized [id number] Closed 10/03/2020 10/03/2021 1 1 Encounter Details Date Type Department Care Team (Late st Contact Info) Description 10/03/2020 Orders Only [facility] [address] [place] [address] Anand Wiseman MD [address]. Provider retired 05/08/24 [place], [place] [phone] Other pulmonary embolism without acute cor pulmonale, unspecified chronicity ([facility]) (Primary Dx); Paroxysmal A-fib ([facility]) Social History Tobacco Use Types Packs/Day Years [...] have Coronavirus / COVID-19? No / Unsure 10/02/2020 1:10 PM EDT documented as of this encounter Plan of Treatment Upcoming Encounters Date Type Department Care Team (Latest Contact Info) Description 11/07/2024 2:00 PM EDT Follow Up Anticoagulation [facility] - Pharmacy Medication Management [address] [place] [address] 02/14/2025 1:15 PM EST Office Visit [facility] [address] [place] [address] [phone] Jerome Quick MD [address] [place] [address] [phone] 08/13/2025 1:00 PM EDT Office Visit [facility] [address] [place] [phone] Jerome Quick MD [address] [place] [address] [phone] documented as of this encounter Goals Goal Patient Goal Type Associated Problems Recent Progress Patient-Stated? Author <enter goal here> General Yes Kristel Mclaughlin LSW Note: Evaluation of progress towards goal: return home independent like prior to admission documented as of this encounter Results * (ABNORMAL) Comprehensive metabolic panel (10/23/2020 10:27 AM EDT) Sodium 143 134 - 146 mmol/L 10/23/2020 1:59 PM EDT [facility] Potassium, Bld 4.7 3.5 - 5.0 mmol/L 10/23/2020 1:59 PM EDT [facility] Chloride 108 98 - 109 mmol/L 10/23/2020 1:59 PM EDT [facility] CO2 24 22 - 32 mmol/L 10/23/2020 1:59 PM EDT [facility] Anion gap 11 5 - 15 mmol/L 10/23/2020 1:59 PM EDT [facility] BUN 22 5 - 27 mg/dL 10/23/2020 1:59 PM EDT [facility] Creatinine 1.27(H) 0.40 - 1.00 mg/dL 10/23/2020 1:59 PM EDT [facility] Comment:METHOD TRACEABLE TO IDMS STANDARD Glucose 102(H) 65 - 99 mg/dL 10/23/2020 1:59 PM EDT [facility] Calcium 9.3 8.5 - 10.5 mg/dL 10/23/2020 1:59 PM EDT [facility] Total Protein 7.4 6.0 - 8.0 g/dL 10/23/2020 1:59 PM EDT [facility] Albumin 4.3 3.2 - 5.3 g/dL 10/23/2020 1:59 PM EDT [facility] Alkaline Phosphatase 87 39 - 130 U/L 10/23/2020 1:59 PM EDT [facility] AST 18 0 - 41 U/L 10/23/2020 1:59 PM EDT [facility] ALT 13 0 - 31 U/L 10/23/2020 1:59 PM EDT [facility] Total bilirubin 0.6 0.3 - 1.2 mg/dL 10/23/2020 1:59 PM EDT [facility] GFR MDRD Non Af Amer 41(L) >59 ml/min/1.7 3sq.m 10/23/2020 1:59 PM EDT [facility] GFR MDRD Af Amer 50(L) >59 ml/min/1.7 3sq.m 10/23/2020 1:59 PM EDT [facility] Serum / Unknown 10/23/2020 1 0:27 AM EDT 10/23/2020 10:29 AM EDT us Anand Wiseman MD LAB BLOOD ORDERABLES Final R esult [facility] [address], [address] [place] [address] * CBC auto differential (10/23/2020 10:27 AM EDT) White Blood Cells 5.4 4.0 - 11.0 X10E9/L 10/23/2020 1:30 PM EDT [facility] RBC count 4.71 3.80 - 5.20 X10E12/L 10/23/2020 1:30 PM EDT [facility] Hemoglobin 13.9 11.7 - 15.5 g/dL 10/23/2020 1:30 PM EDT [facility] Hematocrit 42.3 35 - 47 % 10/23/2020 1:30 PM EDT [facility] MCV 90 80 - 100 fL 10/23/2020 1:30 PM EDT [facility] MCH 29.6 27 - 34 pg 10/23/2020 1:30 PM EDT [facility] MCHC 32.9 32 - 36 g/dL 10/23/2020 1:30 PM EDT [facility] RDW 13.0 11.5 - 15.0 % 10/23/2020 1:30 PM EDT [facility] Platelets 208 150 - 450 X10E9/L 10/23/2020 1:30 PM EDT [facility] MPV 9.3 7 - 12 fL 10/23/2020 1:30 PM EDT [facility] % neutrophils 50.3 % 10/23/2020 1:30 PM EDT [facility] % lymphocytes 35.9 % 10/23/2020 1:30 PM EDT [facility] % monocytes 8.9 % 10/23/2020 1:30 PM EDT [facility] % eosinophils 3.7 % 10/23/2020 1:30 PM EDT [facility] % Basophils 1.2 % 10/23/2020 1:30 PM EDT [facility] Neutrophils Absolute (A) 2.7 1.5 - 6.6 X10E9/L 10/23/2020 1:30 PM EDT [facility] Lymphocytes Absolute 1.9 1.0 - 3.5 X10E9/L 10/23/2020 1:30 PM EDT [facility] Monocytes Absolute 0.5 0 - 0.9 X10E9/L 10/23/2020 1:30 PM EDT [facility] Eosinophils Absolute 0.2 0.0 - 0.4 X10E9/L 10/23/2020 1:30 PM EDT [facility] Basophils Absolute 0.1 0.0 - 0.2 X10E9/L 10/23/2020 1:30 PM EDT [facility] Serum / Unknown 10/23/2020 1 0:27 AM EDT 10/23/2020 10:29 AM EDT us Anand iWseman MD LAB BLOOD ORDERABLES Final R esult [facility] [address] [facility] [place] [address] * X-ray chest 2 views (10/23/2020 10:26 AM EDT) Anatomical Region Laterality Modality Chest N/A Computed Radiogr aphy 10/23/2020 11:2 1 AM EDT Narrative 10/23/2020 11:21 AM EDT CHEST 2 VIEWS HISTORY: Preop testing, CHF COMPARISON: 03/03/2019 FINDINGS: Cardiomegaly. No focal airspace disease, pulmonary edema, pleural effusions, or pneumothorax. IMPRESSION: Cardiomegaly with no acute cardiopulmonary disease. Finalized by Lucas Martinez MD on 10/23/2020 11:21 AM Procedure Note Lucas Martinez MD - 10/23/2020 CHEST 2 VIEWS HISTORY: Preop testing, CHF COMPARISON: 03/03/2019 FINDINGS: Cardiomegaly. No focal airspace disease, pulmonary edema,pleural effusions, or pneumothorax. IMPRESSION: Cardiomegaly with no acute cardiopulmonary disease. Finalized by Lucas Martinez MD on 10/23/2020 11:21 AM us Anand Wiseman MD IMG DIAGNOSTIC IMAGING ORDER EVGENY Final Result * ECG 12 lead (10/23/2020 10:05 AM EDT) 10/23/2020 10:0 5 AM EDT Narrative [facility] - 10/23/2020 11:50 AM EDT us Anand Wiseman MD ECG ORDERABLES Final Result [facility] documented in this encounter Visit Diagnoses Diagnosis Other pulmonary embolism without acute cor pulmonale, unspecified chronicity (CMS-HCC)- Primary Paroxysmal A-fib (CMS-HCC) Other pulmonary embolism without acute cor pulmonale, unspecified chronicity (CMS-HCC) Paroxysmal A-fib (CMS-HCC) Other pulmonary embolism without acute cor pulmonale, unspecified chronicity (CMS-HCC) Paroxysmal A-fib (CMS-HCC) documented in this encounter Additional Health Concerns Assessment Noted Time PHQ-9 Depression Total Score: 5 07/30/19 21 11:00 AM EDT A Body Mass Index follow-up plan has been documented for the patient 07/29/2020 11:32 AM EDT documented as of this encounter Care Teams Melt Room Operator Relationship Specialty Start Date End Date Jerome Quick MD [address] [place] [address] PCP - General Internal Medicine 07/16/24 documented as of this encounter
--- OUTSIDE RECORDS SUMMARY | 2024-11-02 10:54 | XMS_ITS | Encounter Summary ---
Author Organization [facility] Address [id number] [address] [place] [address] Care Team Providers Care Snap Attacher Name Role Phone Jerome Quick MD Primary Care Provider [phone] Encounter Details Date Type Department Care Team (Late st Contact Info) Description 10/30/2020 Orders Only [facility] [address] [place] [phone] External, Scanning Provider Social History Tobacco Use [...] 11/07/2024 2:00 PM EDT Follow Up Anticoagulation [facility] - Pharmacy Medication Management [address] [place] [address] 02/14/2025 1:15 PM EST Office Visit [facility] Family Medicine [address] [place] [address] [phone] Jerome Quick MD [address] [place] [address] [phone] 08/13/2025 1:00 PM EDT Office Visit [facility] Medicine [address] [place] [phone] Jerome Quick MD [facility] [place], [place] [phone] documented as of this encounter Goals Goal Patient Goal Type Associated Problems Recent Progress Patient-Stated? Author <enter goal here> General Yes Kristel Mclaughlin LSW Note: Evaluation of progress towards goal: return home independent like prior to admission documented as of this encounter Procedures Procedure Name Priority Date/Time Associated Diagnosis Comments XR ABDOMEN AP 1 VW Routine 09/15/2020 documented in this encounter Results * X-ray abdomen ap 1 view (09/15/2020) Anatomical Region Laterality Modality Body, Abdomen N/A Computed Radiogr aphy 09/15/2020 us Scanning Provider External IMG DIAGNOSTIC IMAGIN G ORDERABLES Final Result documented in this encounter Visit Diagnoses Not on filedocumented in this encounter Additional Health Concerns Assessment Noted Time PHQ-9 Depression Total Score: 1 10/30/19 21 10:00 AM EDT A Body Mass Index follow-up plan has been documented for the patient 07/29/2020 11:32 AM EDT documented as of this encounter Care Teams Snap Attacher Relationship Specialty Start Date End Date Jerome Quick MD [facility] [place] [phone] PCP - General Internal Medicine 07/16/24 documented as of this encounter
--- OUTSIDE RECORDS SUMMARY | 2024-11-02 10:54 | XMS_ITS | Encounter Summary ---
Author Organization [facility] Address [address] [place] [address] Phone Care Team Providers Care Paper Baling Machine Operator Name Role Phone Anand Wiseman MD Primary Care Provider Unavailable Anand Wiseman MD Primary Care Provider Unavailable Encounter Details Date Type Department Care Team (Late st Contact Info) Description 11/11/2023 Patient Risk Score [facility] Care Management [address] [facility] [address] [place] [address] Social History Tobacco Use Types [...] Description 11/20/2024 11:20 AM EDT Office Visit [facility] [address] [facility] [address] [place] [address] Yvonne Smith MD [address] [facility] 2, [address] [place] [address] documented as of this encounter Visit Diagnoses Not on filedocumented in this encounter Additional Health Concerns Assessment Noted Time A fall risk assessment has been complete d for the patient 03/01/2023 12:21 PM EST documented as of this encounter Care Teams Paper Baling Machine Operator Relationship Specialty Start Date End Date Anand Wiseman MD PCP - General 02/07/99 07/24/24 Anand Wiseman MD PCP - General Family Medicine 07/25/24 documented as of this encounter
--- OUTSIDE RECORDS SUMMARY | 2024-11-02 10:54 | XMS_ITS | Encounter Summary ---
Author Organization [facility] Address [address] [place] [address] Phone Care Team Providers Care Political Anthropologist Name Role Phone Anand Wiseman MD Primary Care Provider Unavailable Anand Wiseman MD Primary Care Provider Unavailable Encounter Details Date Type Department Care Team (Late st Contact Info) Description 12/12/2023 Patient Risk Score [facility] Care Management [address] [facility] [address] [place] [address] Social History Tobacco Use Types [...] suspected to have Coronavirus/COVID-19? No / Unsure 12/13/2023 9:47 AM EST documented as of this encounter Functional Status * BP Answer Date of Assessment Author 130/84 12/14/2023 12:21 PM EST Samara Allen RVT * Pulse Answer Date of Assessment Author 87 12/13/2023 9:55 AM EST Radha Sandoval MA * Communicable Disease Screening Question Answer Date of Assessment Author Do you have any of the follo wing new or worsening symptoms? None of these 12/13/2023 9:47 AM EST Oscar Gupta E documented as of this encounter Plan of Treatment Upcoming Encounters Date Type Department Care Team (Late st Contact Info) Description 11/20/2024 11:20 AM EDT Office Visit [facility] [address] [facility] [address] [place] [phone] Yvonne Smith MD [facility] [facility] [place] [address] documented as of this encounter Visit Diagnoses Not on filedocumented in this encounter Additional Health Concerns Assessment Noted Time A fall risk assessment has been complete d for the patient 03/01/2023 12:21 PM EST documented as of this encounter Care Teams Political Anthropologist Relationship Specialty Start Date End Date Anand Wiseman MD PCP - General 02/07/99 07/24/24 Anand Wiseman MD PCP - General Family Medicine 07/25/24 documented as of this encounter
--- OUTSIDE RECORDS SUMMARY | 2024-11-02 10:54 | XMS_ITS | Encounter Summary ---
Author Organization [facility] Address [address] [place] [address] Phone Care Team Providers Care Dedicated Local Truck Driver Name Role Phone Anand Wiseman MD Primary Care Provider Unavailable Anand Wiseman MD Primary Care Provider Unavailable Encounter Details Date Type Department Care Team (Late st Contact Info) Description 06/10/2024 Patient Risk Score [facility] Care Management [address] [facility] [address] [place] [address] Social History Tobacco Use Types [...] 11:20 AM EDT Office Visit [facility] [address] [facility] [address] [place] [address] Yvonne Smith MD [address] [facility] 2, [address] [place] [address] documented as of this encounter Visit Diagnoses Not on filedocumented in this encounter Additional Health Concerns Assessment Noted Time A fall risk assessment has been complete d for the patient 03/01/2023 12:21 PM EST documented as of this encounter Care Teams Dedicated Local Truck Driver Relationship Specialty Start Date End Date Anand Wiseman MD PCP - General 02/07/99 07/24/24 Anand Wiseman MD PCP - General Family Medicine 07/25/24 documented as of this encounter
--- OUTSIDE RECORDS SUMMARY | 2024-11-02 10:54 | XMS_ITS | Encounter Summary ---
Author Organization [facility] Address [address] [place] [address] Phone Care Team Providers Care Division Director Name Role Phone Anand Wiseman MD Primary Care Provider Unavailable Anand Wiseman MD Primary Care Provider Unavailable Encounter Details Date Type Department Care Team (Late st Contact Info) Description 02/20/2024 Scanned Document [facility] [address] [place] [phone] Scanning, Generic Provider Social History Tobacco Use [...] Description 11/20/2024 11:20 AM EDT Office Visit [facility] [address] [facility] [address] [place] [address] Yvonne Smith MD [address] [facility] 2, [address] [place] [address] documented as of this encounter Procedures Procedure Name Priority Date/Time Associated Diagnosis Comments OUTSIDE IMAGING SCAN 02/20/2024 documented in this encounter Results * OUTSIDE IMAGING SCAN (02/20/2024) Anatomical Region Laterality Modality Other Narrative 02/20/2024 Ordered by an unspecified provider. us Generic Provider Scanning OUTSIDE SCAN Final Result documented in this encounter Visit Diagnoses Not on filedocumented in this encounter Additional Health Concerns Assessment Noted Time A fall risk assessment has been complete d for the patient 03/01/2023 12:21 PM EST documented as of this encounter Care Teams Division Director Relationship Specialty Start Date End Date Anand Wiseman MD PCP - General 02/07/99 07/24/24 Anand Wiseman MD PCP - General Family Medicine 07/25/24 documented as of this encounter
--- OUTSIDE RECORDS SUMMARY | 2024-11-02 10:54 | XMS_ITS | Clinical Summary ---
Author Organization [facility] Address [address] [place] [address] Phone Care Team Providers Care Hotel Or Motel Receptionist Name Role Phone Anand Wiseman MD Primary Care Provider Unavailable Allergies Active Allergy Reactions Criticality Noted Date Comments Cat Dander Runny nose Low 11/26/2022 Dog Dander Runny nose Low 11/26/2022 House Dust Runny nose Low 11/26/2022 Oxycodone-Acetaminophen Hallucinations Medium 11/27/19 23 Medications FLUoxetine (PROzac) 20 mg capsule Take 1 tablet by mouth once daily. Active pantoprazole (ProtoNix) 40 mg EC tablet Take 1 tablet (40 mg) by mouth once daily. Active potassium chloride CR 10 mEq ER tablet Take 1 tablet (10 mEq) by mouth once daily. Do not crush, chew, or split. Active warfarin (Coumadin) 2.5 mg tablet Take 1 tablet (2.5 mg) by mouth. 4 Active dapagliflozin propanediol (Farxiga) 10 mgIndications:Other cardiomyopathy Take 1 tablet (10 mg) by mouth once daily. 90 tablet 3 4 12/29/19 25 Active ferrous sulfate 324 mg (65 mg elemental iron) EC tablet (delayed release) Take 1 tablet (65 mg) by mouth. Active MULTIVITAMIN ORAL Take by mouth. Active metoprolol tartrate (Lopressor) 25 mg tabletIndications:E ssential hypertension, benign,Paroxysmal atrial fibrillation (Multi) Take 0.5 tablets (12.5 mg) by mouth 2 times a day. 90 tablet 3 5 07/26/19 26 Active amiodarone (Pacerone) 200 mg tabletIndications:P aroxysmal atrial fibrillation (Multi) Take 1 tablet (200 mg) by mouth once daily. 90 tablet 1 5 Active losartan (Cozaar) 100 mg tabletIndications:E ssential hypertension, benign,Cardiomyopat hy, unspecified type (Multi) Take 1 tablet (100 mg) by mouth once daily. 90 tablet 3 5 07/26/19 26 Active spironolactone (Aldactone) 25 mg tabletIndications:E ssential hypertension, benign Take 1 tablet (25 mg) by mouth once daily. 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 1 03/20/2022 Assessment & Plan (03/01/2023 12:57 PM EST): CHAMANDA VASc 5 low-dose Eliquis Unable to tolerate full dose Eliquis due to persistent vaginal bleeding Assessment & Plan (02/22/2023 10:38 AM EST): DALILA VASc 5 low-dose Eliquis Unable to tolerate full dose Eliquis due to persistent vaginal bleeding Assessment & Plan (01/17/2023 3:25 PM EST): DALILA VASc 5 low-dose Eliquis Unable to tolerate full dose Eliquis due to persistent vaginal bleeding BMI 32.0-32.9,adult 01/17/2023 Assessment & Plan (03/01/2023 12:57 PM EST): Reviewed the merits of healthy lifestyle choices on overall cardiovascular health. Assessment & Plan (02/22/2023 10:38 AM EST): Reviewed the merits of healthy lifestyle choices on overall cardiovascular health. Assessment & Plan (01/17/2023 3:25 PM EST): Reviewed the merits of healthy lifestyle choices on overall cardiovascular health. Cardiomyopathy (Multi) 11/26/2022 Assessment & Plan (03/01/2023 12:54 PM EST): HFrEF 30-35% Jan 2023 TTE ( September 2021 MPI EF 48%: August 2021 TTE 30 to 35%, 2013 cath EF 45%) Functional class III stage C Fatigue and dyspnea on exertion GDMT: High-dose Toprol - needs stopped due to profound bradycardia Losartan Aldactone Entersto: no insurance coverage, unable to afford Jardiance: Jan 2023 QRS 104 Assessment & Plan (02/22/2023 10:35 AM EST): HFrEF 30-35% Jan 2023 TTE ( September 2021 MPI EF 48%: August 2021 TTE 30 to 35%, 2014 cath EF 45%) Functional class II-3 stage C GDMT: High-dose Toprol - needs stopped due to profound bradycardia Losartan Aldactone Entersto: no insurance coverage, unable to afford Jardiance: Jan 2023 QRS 104 Assessment & Plan (01/17/2023 3:24 PM EST): Heart failure improved EF 48% September 2021 MPI (August 2021 TTE 30 to 35%, 2013 cath EF 45%) Functional class II-3 stage C GDMT: High-dose Toprol Losartan Aldactone No prior Jardiance, last creatinine 1.55 Will repeat echocardiogram to reassess EF. Return to clinic to transition to Entresto and initiate Jardiance if warranted. Essential hypertension, benign 11/26/2022 Assessment & Plan (03/01/2023 12:53 PM EST): optimal off high-dose Toprol Assessment & Plan (02/22/2023 10:35 AM EST): Optimal in office Assessment & Plan (01/17/2023 3:24 PM EST): Optimal in office Mild CAD 11/26/2022 Assessment & Plan (03/01/2023 12:54 PM EST): 2013 cardiac cath trivial coronary artery disease September 2021 MPI no ischemia FC III fatigue and shortness of breath Daily activity less than 4 METS due to symptoms Assessment & Plan (02/22/2023 10:35 AM EST): 2013 cardiac cath trivial coronary artery disease September 2021 MPI no ischemia Assessment & Plan (01/17/2023 3:24 PM EST): 2013 cardiac cath trivial coronary artery disease September 2021 MPI no ischemia Paroxysmal atrial fibrillation (Multi) Assessment & Plan (03/01/2023 12:54 PM EST): EKG in office bigeminy, underlying sinus rhythm January 2023 Holter no recurrent PAF Assessment & Plan (02/22/2023 10:36 AM EST): EKG in office sinus bradycardia January 2023 Holter no recurrent PAF Shortness of breath 11/26/2022 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 use 11/26/2022 Assessment & Plan (03/01/2023 12:52 PM EST): Amiodarone start date September 07, 2021 EKG in office bigeminy, QTc 474 Surveillance testing has been scheduled towards the end of the month Assessment & Plan (02/22/2023 10:32 AM EST): Amiodarone start date September 07, 2021 EKG in office sinus bradycardia, QTc 383 Surveillance testing has been scheduled towards the end of the month Assessment & Plan (01/17/2023 3:22 PM EST): Amiodarone start date September 07, 2021 EKG in office maintaining sinus bradycardia with PVCs, QTc 451 Surveillance testing completed July 2022 Resolved Problems Problem Noted Date Diagnosed Date Resolved Date 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 Encounters Date Type Department Care Team Description 10/12/2024 Results Follow-Up [address] [place] [address] Cherie Reynolds LPN Transthoracic Echo Limited 10/05/[address] [address] Cherie Reynolds LPN Medical Advice/Question 10/02/2024 1:21 PM EDT - 10/02/2024 11:59 PM EDT Hospital Encounter [address] [facility] [address] [place] [address] Cardiomyopathy, unspecified type (Multi); Chronic diastolic congestive heart failure (Multi); Abdominal aortic aneurysm, ruptured, unspecified (Multi) Discharge Disposition: Home 10/02/2024 Travel 09/20/[address] [place] [address] Loraine Pabon RN Clearance/Med Hold 09/13/2024 Scanned Document [facility] [address] [place] [phone] Scanning, Generic Provider 08/10/2024 Patient Risk Score ACO Care Management [address] [place] [address] from Last 3 Months Immunizations Immunization Administration Dates Next Due Flu vaccine, trivalent, pres ervative free, HIGH-DOSE, age 65y+ (Fluzone) 11/10/2021,10/23/2021,12/10/2020 Pfizer Purple Cap SARS-CoV-2 12/19/2020,04/23/19 21,04/01/2020 Pneumococcal conjugate vacci ne, 13-valent (PREVNAR 13) 11/16/2016 Pneumococcal polysaccharide vaccine, 23-valent, age 2 years and older (PNEUMOVAX 23) 11/24/2017 Family History Medical History Relation Name Comments Hypertension Brother Diabetes Father Heart attack Father Hypertension Father Colon cancer Mother Congenital heart disease Mother Coronary artery disease Mother Hypertension Mother Transient ischemic attack Mother Depression Sister Hypertension Sister Uterine cancer Sister Relation Name Status Comments Brother Father Mother Sister Social History Tobacco Use Types Packs/Day Years Used Date Smoking Tobacco: Never Smokeless Tobacco: Never Tobacco Cessation:Counseling Given: Not Answered Alcohol Use Standard Drinks/Week Comments Never 0 (1 standard drink = 0.6 oz pur e alcohol) Comments Unknown Sex and Gender Information Value Date Recorded Sex Assigned at Not on file Legal Sex Female 10:22 PM EST Gender Identity Not on file Sexual Orientation Not on file Last Filed Vital Signs Vital Sign Reading Time Taken Comments Blood Pressure 136/82 10/02/2024 1:28 PM EDT Pulse 75 08/01/2024 11:06 AM EDT Temperature - - Respiratory Rate - - Oxygen Saturation - - Inhaled Oxygen Concentration - - Weight 90.7 kg (200 lb) 10/02/2024 1:28 PM EDT Height 167.6 cm (5' 6 ) 10/02/2024 1:28 PM EDT Body Mass Index 32.28 10/02/2024 1:28 PM EDT Plan of Treatment Upcoming Encounters Date Type Department Care Team (Joe st Contact Info) Description 11/20/2024 11:20 AM EDT Office Visit [facility] [address] [facility] [address] [place] [address] Nan Smith MD [address] [facility] [address] [place] [address] Health Maintenance Due Date Last Done Comments Creatinine Level 1945 Lipid Panel 1945 Potassium Level 1945 Diabetes Screening 09/05/1963 Hepatitis C Screening 09/05/1963 DTaP/Tdap/Td Vaccines (1 - Tdap) 09/05/1967 RSV High Risk: (Elderly (60+) or Population) (1 - 1-dose 75+ series) 2020 Bone Density Scan 10/08/2022 10/08/2020, 10/08/2020 Medicare Annual Wellness Visit (AWV) 08/04/2024 08/04/2023, 08/02/2022, 07/30/2021, Additional history exists COVID-19 Vaccine ( season) 2024 11/27/2023, 12/14/2022, 10/23/2021, Additional history exists Influenza Vaccine (#1) 2024 , 12/14/2022, 11/10/2021, Additional history exists TSH Level 09/13/2025 09/13/2024, 12/16/2023 Echocardiogram 10/02/2025 10/02/2024, 11/0 07/2023, 01/21/2023, Additional history exists Pneumococcal Vaccine Completed 11/24/2017, 11/16/2016, 07/26/2012 Zoster Vaccines Completed 08/20/2022, 04/01/2022 HIB Vaccines Aged Out No longer eligi ble based on patient's age to complete this topic HPV Vaccines Aged Out No longer eligi ble based on patient's age to complete this topic Hepatitis A Vaccines Aged Out No long er eligible based on patient's age to complete this topic Hepatitis B Vaccines Aged Out No long er eligible based on patient's age to complete this topic IPV Vaccines Aged Out No longer eligi ble based on patient's age to complete this topic Meningococcal Vaccine Aged Out No gregorio rodolfo eligible based on patient's age to complete this topic Rotavirus Vaccines Aged Out No longer eligible based on patient's age to complete this topic Procedures Procedure Name Priority Date/Time Associated Diagnosis Comments TRANSTHORACIC ECHO (TTE) LIMITED Routine 10/02/2024 1:57 PM EDT Cardiomyopathy, unspecified type (Multi) Chronic diastolic congestive heart failure (Multi) Abdominal aortic aneurysm, ruptured, unspecified (Multi) OUTSIDE LAB SCAN 09/13/2024 OUTSIDE LAB SCAN 09/13/2024 from Last 3 Months Results * TRANSTHORACIC ECHO (TTE) LIMITED (10/02/2024 1:57 PM EDT) LVOT diam 2.30 cm SYNGO LA vol index A/L 46.2 ml/m2 SYNGO LV EF 43 % SYNGO LVIDd 4.09 cm SYNGO LV A4C EF 33.2 SYNGO 10/02/2024 1:28 PM EDT Impressions SYNGO - 10/10/2024 4:22 PM EDT CONCLUSIONS: 1. Left ventricular ejection fraction is mildly decreased by visual estimate at 40-45%. 2. Mild concentric left ventricular hypertrophy. 3. There is normal right ventricular global systolic function. 4. When compared to study from December 2023, the left ventricle ejection fraction is slightly improved. Narrative SYNGO - 10/10/2024 4:22 PM EDT [address], [address] [place] [address] TRANSTHORACIC ECHOCARDIOGRAM REPORT Patient Name: [place] Giselle Physician: [id number] Nan Smith MD, FACC Study Date: 10/02/2024 Ordering Provider: [id number] NAN SMITH MRN/PID: [id number] Fellow: Nurse: Date of /Age: 7 1945 [employer] Teacher: Taty shoemaker RDCS, RVT Gender Assigned at F Additional Staff: : Height: 167.64 cm Admit Date: Weight: 90.72 kg Admission Status: Outpatient BSA / BMI: 2.00 m2 / 32.28 Department Location: [facility] kg/m2 [place] Blood Pressure: 136 /82 mmHg Study Type: TRANSTHORACIC ECHO (TTE) LIMITED Diagnosis/ICD: Cardiomyopathy, unspecified-I42.9; Abdominal aortic aneurysm, ruptured, unspecified-I71.30; Chronic diastolic (congestive) heart failure (CHF)-I50.32 Indication: Paroxsmal Atrial Fibrillation, Sick Sinus Syndrome, PVC's, HTN, Obesity CPT Codes: Echo Limited-28000 Study Detail: The following Echo studies were performed: 2D and M-Mode. PHYSICIAN INTERPRETATION: Left Ventricle: Left ventricular ejection fraction is mildly decreased by visual estimate at 40-45%. There is concentric left ventricular hypertrophy. The left ventricular cavity size is normal. There is mild increased septal and mildly increased posterior left ventricular wall thickness. Left ventricular diastolic filling was not assessed. Mild concentric left ventricular hypertrophy. Left Atrium: The left atrial size is mildly dilated. Right Ventricle: The right ventricle is normal in size. There is normal right ventricular global systolic function. Right Atrium: The right atrial size is normal. Aortic Valve: The aortic valve is trileaflet. Aortic valve regurgitation was not assessed. Mitral Valve: The mitral valve is mildly thickened. Mitral valve regurgitation was not assessed. Tricuspid Valve: The tricuspid valve is structurally normal. Tricuspid regurgitation was not assessed. Pulmonic Valve: The pulmonic valve is structurally normal. The pulmonic valve regurgitation was not assessed. Pericardium: No pericardial effusion noted. Aorta: The aortic root is normal. Systemic Veins: The inferior vena cava was not assessed, IVC inspiratory collapse was not assessed. In comparison to the previous echocardiogram(s): When compared to study from December 2023, the left ventricle ejection fraction is slightly improved. CONCLUSIONS: 1. Left ventricular ejection fraction is mildly decreased by visual estimate at 40-45%. 2. Mild concentric left ventricular hypertrophy. 3. There is normal right ventricular global systolic function. 4. When compared to study from December 2023, the left ventricle ejection fraction is slightly improved. QUANTITATIVE DATA SUMMARY: 2D MEASUREMENTS: Normal Ranges: Ao Root d: 3.50 cm (2.0-3.7cm) LAs: 4.23 cm (2.7-4.0cm) RVIDd: 3.30 cm (0.9-3.6cm) IVSd: 1.47 cm (0.6-1.1cm) LVPWd: 1.34 cm (0.6-1.1cm) LVIDd: 4.09 cm (3.9-5.9cm) LVIDs: 3.84 cm LV Mass Index: 108.7 g/m2 LV % FS 6.0 % LEFT ATRIUM: Normal Ranges: LA Vol A4C: 67.4 ml (22+/-6mL/m2) LA Vol A2C: 102.9 ml LA Vol BP: 92.4 ml LA Vol Index A4C: 33.7ml/m2 LA Vol Index A2C: 51.4 ml/m2 LA Vol Index BP: 46.2 ml/m2 LA Vol A4C: 62.1 ml LA Vol A2C: 96.8 ml LA Vol Index BSA: 39.7 ml/m2 LV SYSTOLIC FUNCTION: Normal Ranges: EF-A4C View: 33 % (>=55%) EF-Visual: 43 % LV EF Reported: 43 % AORTIC VALVE: Normal Ranges: LVOT Diameter: 2.30 cm (1.8-2.4cm) [id number] Nan Smith MD, FACC Electronically signed on 10/10/2024 at 4:22:13 PM Final Procedure Note Nan Smith MD - 10/10/[address], [place] [address] TRANSTHORACIC ECHOCARDIOGRAM REPORT Patient Name: TRI Desai Physician: [id number] Smith MD,FAC Study Date: 10/02/2024 Ordering Provider: [id number] IRMA SMITH MRN/PID: [id number] Fellow: Nurse: Date of /Age: 7 1945 [employer] Teacher: Lois shoemaker RDCS, RVT Gender Assigned at F Additional Staff: : Height: 167.64 cm Admit Date: Weight: 90.72 kg Admission Status: Outpatient BSA / BMI: 2.00 m2 / 32.28 [facility] [place] Blood Pressure: 136 /82 mmHg Study Type: TRANSTHORACIC ECHO (TTE) LIMITED Diagnosis/ICD: Cardiomyopathy, unspecified-I42.9; Abdominal aorticaneurysm, ruptured, unspecified-I71.30; Chronic diastolic(congestive) heart failure (CHF)-I50.32 Indication: Paroxsmal Atrial Fibrillation, Sick Sinus Syndrome, PVC's,HTN, Obesity CPT Codes: Echo Limited-14426 Study Detail: The following Echo studies were performed: 2D and M-Mode. PHYSICIAN INTERPRETATION: Left Ventricle: Left ventricular ejection fraction is mildly decreased byvisual estimate at 40-45%. There is concentric left ventricularhypertrophy. The left ventricular cavity size is normal. There is mildincreased septal and mildly increased posterior left ventricular wallthickness. Left ventricular diastolic filling was not assessed. Mildconcentric left ventricular hypertrophy. Left Atrium: The left atrial size is mildly dilated. Right Ventricle: The right ventricle is normal in size. There is normalright ventricular global systolic function. Right Atrium: The right atrial size is normal. Aortic Valve: The aortic valve is trileaflet. Aortic valve regurgitationwas not assessed. Mitral Valve: The mitral valve is mildly thickened. Mitral valveregurgitation was not assessed. Tricuspid Valve: The tricuspid valve is structurally normal. Tricuspidregurgitation was not assessed. Pulmonic Valve: The pulmonic valve is structurally normal. The pulmonicvalve regurgitation was not assessed. Pericardium: No pericardial effusion noted. Aorta: The aortic root is normal. Systemic Veins: The inferior vena cava was not assessed, IVC inspiratorycollapse was not assessed. In comparison to the previous echocardiogram(s): When compared to studyfrom December 2023, the left ventricle ejection fraction is slightlyimproved. CONCLUSIONS: 1. Left ventricular ejection fraction is mildly decreased by visualestimate at 40-45%. 2. Mild concentric left ventricular hypertrophy. 3. There is normal right ventricular global systolic function. 4. When compared to study from December 2023, the left ventricle ejectionfraction is slightly improved. QUANTITATIVE DATA SUMMARY: 2D MEASUREMENTS: Normal Ranges: Ao Root d: 3.50 cm (2.0-3.7cm) LAs: 4.23 cm (2.7-4.0cm) RVIDd: 3.30 cm (0.9-3.6cm) IVSd: 1.47 cm (0.6-1.1cm) LVPWd: 1.34 cm (0.6-1.1cm) LVIDd: 4.09 cm (3.9-5.9cm) LVIDs: 3.84 cm LV Mass Index: 108.7 g/m2 LV % FS 6.0 % LEFT ATRIUM: Normal Ranges: LA Vol A4C: 67.4 ml (22+/-6mL/m2) LA Vol A2C: 102.9 ml LA Vol BP: 92.4 ml LA Vol Index A4C: 33.7ml/m2 LA Vol Index A2C: 51.4 ml/m2 LA Vol Index BP: 46.2 ml/m2 LA Vol A4C: 62.1 ml LA Vol A2C: 96.8 ml LA Vol Index BSA: 39.7 ml/m2 LV SYSTOLIC FUNCTION: Normal Ranges: EF-A4C View: 33 % (>=55%) EF-Visual: 43 % LV EF Reported: 43 % AORTIC VALVE: Normal Ranges: LVOT Diameter: 2.30 cm (1.8-2.4cm) [id number] Nan Smith MD, FACC Electronically signed on 10/10/2024 at 4:22:13 PM Final IMPRESSION: CONCLUSIONS: 1. Left ventricular ejection fraction is mildly decreased by visualestimate at 40-45%. 2. Mild concentric left ventricular hypertrophy. 3. There is normal right ventricular global systolic function. 4. When compared to study from December 2023, the left ventricle ejectionfraction is slightly improved. us Nan Smith MD CV ECHO PROCEDURES Final Res ult SYNGO * OUTSIDE LAB SCAN (09/13/2024) Only the most recent of2 resultswithin the time period is included. Narrative 09/13/2024 Ordered by an unspecified provider. us Generic Provider Scanning OUTSIDE SCAN Final Result from Last 3 Months Insurance MEDICARE PART A AND B [employer] SENIOR SUPPLEMENT Care Teams Hotel Or Motel Receptionist Relationship Specialty Start Date End Date Anand Wiseman MD PCP - General Family Medicine 07/25/24
--- OUTSIDE RECORDS SUMMARY | 2024-11-02 10:55 | XMS_ITS | Encounter Summary ---
Author Organization [facility] tem Address [id number] [address] [place] [address] Care Team Providers Care Upsetter Name Role Phone Jerome Quick MD Primary Care Provider Encounter Details Date Type Department Care Team (Late st Contact Info) Description 09/25/2024 Orders Only [facility] [address] [place] [phone] External, Scanning Provider Social History Tobacco Use [...] 11/07/2024 2:00 PM EDT Follow Up Anticoagulation [facility] - Pharmacy Medication Management [address] [place] [address] 02/14/2025 1:15 PM EST Office Visit [facility] [address] [place] [phone] Jerome Quick MD [address] [place] [address] [phone] 08/13/2025 1:00 PM EDT Office Visit [facility] [address] [place] [phone] Jerome Quick MD [address] [place] [address] [phone] documented as of this encounter Goals Goal Patient Goal Type Associated Problems Recent Progress Patient-Stated? Author <enter goal here> General Yes Kristel Mclaughlin LSW Note: Evaluation of progress towards goal: return home independent like prior to admission documented as of this encounter Procedures Procedure Name Priority Date/Time Associated Diagnosis Comments XR CHEST 2 VWS Routine 09/25/2024 12:17 PM EDT documented in this encounter Results * X-ray chest 2 views (09/25/2024 12:17 [...] documented as of this encounter Care Teams Upsetter Relationship Specialty Start Date End Date Jerome Quick MD [address] [place] [address] PCP - General Internal Medicine 07/16/24 documented as of this encounter
--- OUTSIDE RECORDS SUMMARY | 2024-11-02 10:55 | XMS_ITS | Encounter Summary ---
Author Organization [facility] tem Address [id number] [address] [place] [address] Care Team Providers Care Developmental Education Instructor Name Role Phone Jerome Quick MD Primary Care Provider [phone] Encounter Details Date Type Department Care Team (Latest Contact Info) Description 09/14/2024 [facility] [address] [place] [phone] Jerome Quick MD [address] [place], [place] [phone] Lipid profile, Comprehensive metabolic panel, TSH, CBC auto differential Social History Tobacco Use Types Packs/Day Years [...] Description 11/07/2024 2:00 PM EDT Follow Up [facility] - Pharmacy Medication Management [address] [place] [address] 02/14/2025 1:15 PM EST Office Visit [facility] Family [facility] [address] [place] [phone] Jerome Quick MD [address] [place] [address] [phone] 08/13/2025 1:00 PM EDT Office Visit [facility] [address] [place] [phone] Jerome Quick MD [address] [place] [address] [phone] documented as of this encounter Goals Goal Patient Goal Type Associated Problems Recent Progress Patient-Stated? Author <enter goal here> General Yes Kristel Mclaughlin LSW Note: Evaluation of progress towards goal: return home independent like prior to admission documented as of this encounter Visit Diagnoses Not on filedocumented in this encounter Additional Health Concerns Assessment Noted Time PHQ-9 Depression Total Score: 5 08/09/19 1:00 PM EDT A Body Mass Index follow-up plan has been documented for the patient 07/29/2020 11:32 AM EDT documented as of this encounter Care Teams Developmental Education Instructor Relationship Specialty Start Date End Date Jerome Quick MD [address] [place] [phone] PCP - General Internal Medicine 07/16/24 documented as of this encounter
--- OUTSIDE RECORDS SUMMARY | 2024-11-02 10:55 | XMS_ITS | Encounter Summary ---
Author Organization [facility] Address [id number] [address] [place] [address] Care Team Providers Care [employer] Finishing [employer] Operator Name Role Phone Jerome Quick MD Primary Care Provider [phone] Encounter Details Date Type Department Care Team (Late st Contact Info) Description 10/04/2024 Orders Only [facility] [address] [place] [phone] External, Scanning Provider Social History Tobacco Use [...] 11/07/2024 2:00 PM EDT Follow Up Anticoagulation [facility] Medication Management [address] [place] [address] 02/14/2025 1:15 PM EST Office Visit [facility] [address] [place] [phone] Jerome Quick MD [address] [place] [address] [phone] 08/13/2025 1:00 PM EDT Office Visit [facility] [address] [place] [phone] Jerome Quick MD [address] [place] [address] [phone] documented as of this encounter Goals Goal Patient Goal Type Associated Problems Recent Progress Patient-Stated? Author <enter goal here> General Yes Kristel Mclaughlin LSW Note: Evaluation of progress towards goal: return home independent like prior to admission documented as of this encounter Procedures Procedure Name Priority Date/Time Associated Diagnosis Comments XR ABDOMEN AP 1 VW Routine 10/04/2024 12:49 PM EDT documented in this encounter Results * X-ray abdomen ap 1 view (10/04/2024 12:49 PM EDT) Anatomical Region Laterality Modality Body, [...] documented as of this encounter Care Teams Pl[employer] Finishing [employer] Operator Relationship Specialty Start Date End Date Jerome Quick MD [address] [place] [address] PCP - General Internal Medicine 07/16/24 documented as of this encounter
--- OUTSIDE RECORDS SUMMARY | 2024-11-02 10:56 | XMS_ITS | CCD ---
Author Organization [facility] CliniSysd Care Team Providers Care Noodle Catalyst Maker Name Role Phone IVONE, DR FORBES Primary [...] Provider MD Jose Martin Jones Attending Provider Ivone, Andrei Bangura Primary Care Unavailab le McGuinn [...] MD Andrei Wiseman Primary Care Provider [phone] TRUNG Nassar Attending Provider TRUNG Turner Attending Provider MD Jose Martin Jones Attending Provider MD Andrei Wiseman Primary Care Provider [phone] DO Tami Cardoza Emergency Provider [phone] Andrei Wiseman MD Primary Care Provider Johnny NINO-Delilah BARBOUR Unavailable Andrei Wiseman MD Primary Care Provider [phone] Andrei Wiseman Primary Care Unavailable Yvonne Haas Admitting Unavailable Yvonne Haas Attending Unavailable Defrance, Andrei Primary Care Unavailable Delilah Turner Admitting Unavailable Johnny, Delilah Finley Attending Unavailable Jose Martin Jones Attending Unavail able Defrance, Andrei Primary Care Unavailable Jose Martin Jones Admitting Unavail able Tami Cardoza Admitting Unavailable Tami Cardoza Attending Unavailable Defrance, Andrei Primary Care Unavailable Defrance , Andrei Walker Primary Care Provider Ivone DE LA ROSA, Andrei Walker Primary Care Provider Jerome Quick MD Primary Care Provider [phone] Ivone DE LA ROSA, Andrei Bangura Primary Care Provider IVONE, ANDREI Walker Attending Unavailable DEFRANCE, ANDREI T Referring Unavailable DEFRANCE, ANDREI Walker Primary Care Unavailable NGOC, JEROME Attending Unavailable NGOC, JEROME Referring Unavailable NGOC, JEROME Primary Care Unavailable NGOC, JEROME Attending Unavailable DEFRANCE, ANDREI Walker Referring Unavailable NGOC, JEROME Primary Care Unavailable Allyson SALEEM Attending Unavailable HARPER, Allyson Montenegro Attending Unavailable Allyson SALEEM Attending Unavailable Allyson SALEEM Admitting Unavailable Defrance Andrei DE LA ROSA Primary Care Provider Unavailable SERVICE, JOBST Referring Unavailable DEFRANCE, ANDREI [...] Unavailable DEFRANCE, ANDREI T Primary Care Unavailable DEFRANCE, ANDREI T Primary Care Unavailable ROJELIO DYE Attending Unavailable MEDICATION MANAGEMENT, [facility] Referr ing Unavailable DEFRANCE, ANDREI T Primary Care Unavailable MEDICATION MANAGEMENT, [facility] Referr ing Unavailable NGOC, JEROME Primary Care Unavailable SERVICE, JOBST Referring Unavailable DEFRANCE, ANDREI T Primary Care Unavailable MEDICATION MANAGEMENT, [facility] Referr ing Unavailable DEFRANCE, [facility] Primary Care Unavailable MEDICATION MANAGEMENT, [facility] Referr ing Unavailable NGOC, JEROME Primary Care Unavailable ALLYSON SALEEM Referring Unavailable NGOC, JEROME Primary Care Unavailable NGOC, JEROME Referring Unavailable NGOC, JEROME Primary Care Unavailable MEDICATION MANAGEMENT, [facility] Referr ing Unavailable NGOC, JEROME Primary Care Unavailable MEDICATION MANAGEMENT, [facility] Referr ing Unavailable NGOC, [facility] Primary Care Unavailable MEDICATION MANAGEMENT, [facility] Referr ing Unavailable DEFRANCE, [facility] Primary Care Unavailable MEDICATION MANAGEMENT, [facility] Referr ing Unavailable DEFRANCE, [facility] Primary Care Unavailable MEDICATION MANAGEMENT, [facility] Referr ing Unavailable DEFRANCE, [facility] Primary Care Unavailable MEDICATION MANAGEMENT, [facility] Referr ing Unavailable DEFRANCE, [facility] Primary Care Unavailable MARISOLMATTHEW Admitting Unavailable MARISOL, MATTHEW Sena Attending Unavailable MARISOLMATTHEW Referring Unavailable DEFRANCE, [facility] Primary Care Unavailable MEDICATION MANAGEMENT, [facility] Referr ing Unavailable DEFRANCE, [facility] Primary Care Unavailable MEDICATION MANAGEMENT, [facility] Referr ing Unavailable DEFRANCE, [facility] Primary Care Unavailable MEDICATION MANAGEMENT, [facility] Referr ing Unavailable DEFRANCE, [facility] Primary Care Unavailable MEDICATION MANAGEMENT, [facility] Referr ing Unavailable DEFRANCE, [facility] Primary Care Unavailable YVONNE HAAS Referring Unavailable DEFRANCE, [facility] Primary Care Unavailable YVONNE HAAS Referring Unavailable DEFRANCE, [facility] Primary Care Unavailable MEDICATION MANAGEMENT, [facility] Referr ing Unavailable DEFRANCE, [facility] Primary Care Unavailable YVONNE HAAS Referring Unavailable DEFRANCE, [facility] Unavailab le HAASYVONNE MAGALLON Referring Unavailable DEFRANCE, [facility] Primary [facility] Unavailab Allyson Wall Attending Unavailable YVONNE HAAS Attending Unavailable DEFRANCE, [facility] Unavailab JOSE MARTIN Smith Referring Unavailable HAASYVONNE Referring Unavailable DEFRANCE, ANDREI [facility] Unavailab le YVONNE HAAS Attending Unavailable YVONNE HAAS Referring Unavailable DEFRANCE, [facility] Primary [facility] Unavailab le HAASYVONNE RIDDLE Referring Unavailable DEFRANCE, [facility] Primary Care Unavailab le Allergies Allergy Classification Reported Allergen(s) Allergy Type Date of Onset Reaction(s) Facility (1 source) Acetaminophen / HYDROcodone Drug Allergy [facility] (1 source) Misc-Drug Drug allergy (disorder) [facility] (20 sources) Acetaminophen / oxyCODONE; Translations: [Percocet TABS] Drug Allergy 07-31-19 22 Hallucinations [facility] DO Work Phone: (17 sources) house dust Allergy to substance (finding) [facility] 250 DO Work Phone: (17 sources) Animal dander - Cats Allergy to substance (finding) [facility] 250 DO Work Phone: (17 sources) Animal dander - Dogs Allergy to substance (finding) [facility] 250 DO Work Phone: (7 sources) narcotic analgesics; Translations: [narcotic analgesics] Drug allergy Moderate (severity modifier) (qualifier value) [facility] (20 sources) house dust allergenic extract; Translations: [HOUSE DUST] Drug Allergy 07-31-19 22 Unknown, Runny nose [facility] Work Phone: (20 sources) Cat Dander; Translations: [CAT DANDER] Allergy to substance 11-27-19 Unknown, Runny nose, Other (See Comments) [facility] (20 sources) Dog Dander; Translations: [DOG DANDER] Allergy to substance 11-27-19 Unknown, Runny nose, Other (See Comments) [facility] Work Phone: (20 sources) Aspirin; Translations: [ASPIRIN] Drug Allergy 10-08-19 [facility] (20 sources) Codeine; Translations: [CODEINE] Drug Allergy 08-26-19 12 [facility] (20 sources) Ibuprofen; Translations: [IBUPROFEN] Drug Allergy 10-08-19 [facility] (20 sources) Morphine; Translations: [MORPHINE] Drug Allergy 08-26-19 12 [facility] (20 sources) Nitrofurantoin; Translations: [NITROFURANTOIN] Drug Allergy 07-31-19 [facility] Work Phone: (20 sources) Animal Dander; Translations: [ANIMAL DANDER] Propensity to adverse reactions to drug 07-31-19 [facility] (4 sources) Acetaminophen / oxyCODONE; Translations: [OXYCODONE-ACETA MINOPHEN] Drug Allergy 07-31-19 [facility] Repository Medications Current Medications Medication Drug Class(es) Dates Sig (Normalized) Sig (Original) amiodarone hydrochloride 200 mg oral tablet (20 sources) Antiarrhythmic Start: 09-07-2021 End: 07-25-2024 take 1 tablet by mouth in the morning amiodarone (PACERONE) 200 mg tablet Take 1 tablet (200 mg total) by mouth in the morning. 09/07/2021 Active amoxicillin 875 mg / clavulanate 125 [...] procedure, # 2 cap(s), Refills(s) 0, Pharmacy: [facility] [id number], 169, cm, 09/17/24 10:36:00 EDT, Height/Length Dosing, [...] capsule (20 sources) Serotonin Reuptake Inhibitor Start: 12-01-2023 take 20 mg by mouth once daily Fluoxetine Active 20 MG PO Daily December 01, 2023 12:00am Start: 02-01-2023 take 1 capsule by mo [facility] in the morning FLUoxetine (PROzac) 20 mg [...] tab(s), Oral, BID, 180 tab(s), Refill(s) 3, [facility] [id number], 169, cm, 09/17/24 10:36:00 EDT, Height/Length Dosing, [...] tab(s), Oral, BID, 180 tab(s), Refill(s) 3, [facility] [id number], 169, cm, 09/16/23 10:22:00 EDT, Height/Length Dosing, [...] for 30 day(s), 60 tab(s), Refill(s) 11, [facility] [id number], 169, cm, 09/13/22 10:29:00 EDT, Height/Length Dosing, [...] 1 tablet by mouth in the morning spironolactone (ALDACTONE) 25 mg tablet Take 1 tablet (25 mg total) by mouth in the morning. 90 tablet 3 01/25/2024 Active warfarin sodium 1 mg oral tablet (20 sources) Vitamin K Antagonist Start: 11-02-2024 take 2-3 tablets by mouth in the evening warfarin (COUMADIN) 1 mg tablet Indications: Atrial fibrillation, unspecified type (CMS-HCC) Take 2-3 tablets (2-3 mg total) by mouth in the evening. As directed by [facility]. 270 tablet 1 11/02/2024 Active Start: 04-30-2024 End: 11-02-2024 take 1.5-2.5 tablets by mouth in the evening warfarin (COUMADIN) 1 mg tablet Indications: Atrial fibrillation, unspecified type (CMS-HCC) Take 1.5-2.5 tablets (1.5-2.5 mg total) by mouth in the evening. 225 tablet 1 04/30/2024 11/02/2024 Discontinued Start: 12-01-2023 Warfarin Activ e 5 MG [...] mouth in the evening. [facility] Management (MTM). 30 tablet 10/25/2023 [...] Anxiety; Translations: [Anxiety disorder, unspecified] 12-01-2023 Chronic Cardiac dysrhythmias (20 sources) Unspecified atrial fibrillation; Translations: [Paroxysmal atrial fibrillation] Onset: 02-01-2019 01-17-2023 Chronic Congestive heart failure; nonhypertensive (20 sources) Chronic diastolic heart failure; Translations: [Chronic diastolic (congestive) heart failure] Onset: 03-09-2019 02-21-2023 Chronic Coronary atherosclerosis and other heart disease (20 sources) Coronary atherosclerosis; Translations: [Coronary atherosclerosis of unspecified type of vessel, [place] or graft] Onset: 09-21-2021 01-17-2023 Chronic E [...] anticoagulants] Episodic Other and unspecified benign neoplasm (20 [...] 01-25-2024 Unclassified (1 source) ill Onset: 04-09-2024 Unclassified (1 source) Abdominal aortic aneurysm, ruptured, unspecified (Multi); Translations: [Abdominal aortic aneurysm, ruptured, unspecified (Multi)] Onset: 10-02-2024 Urinary tract infections (7 sources) Urinary tract infectious disease; Translations: [Urinary tract infection, site not specified] Onset: 09-13-2022 Episodic Past or Other Problems Problem Classification Problem Date Documented Da te Episodic/Chronic Calculus of urinary tract (20 sources) Calculus of kidney; Translations: [History of calculus of kidney] Onset: 07-21-2017 Episodic Fracture of upper limb (2 sources) Unspecified fracture of the lower end of right radius, initial encounter for closed fracture; Translations: [Nondisplaced fracture of right ulna styloid process, initial encounter for closed fracture] Onset: 04-09-2024 Episodic Mood disorders (20 sources) Mood disorders Onset: 01-25-2024 Resolved: 08-08-2024 01-25-2024 Other aftercare (3 sources) assisted (current) use of anticoagulants; Translations: [VEHICLE FUEL SYSTEMS CONVERTER CURRNT USE ANTICOAGULANTS] Onset: 12-08-2020 Episodic Other aftercare (4 sources) Other nursing home (current) drug therapy; Translations: [OTH ALF CURRENT DRUG THERAPY] Onset: 12-08-2020 Episodic Other aftercare (20 sources) Long-term current use of anticoagulant; Translations: [assisted (current) use of anticoagulants] Onset: 09-13-2022 Episodic Other aftercare (20 sources) Taking high risk medication; Translations: [Other rodent 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 (current) drug therapy] Onset: 11-26-2022 01-17-2023 Episodic Other gastrointestinal disorders (20 sources) History of bypass of stomach; 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] Onset: 07-21-2017 07-21-2017 Episodic Other lower respiratory disease (20 sources) Dyspnea; Translations: [Shortness of breath] Onset: 02-16-2019 11-26-2022 Episodic Other nutritional; endocrine; and metabolic disorders (20 sources) Body mass index 40+ - severely obese; Translations: [Body mass index (BMI) 40.0-44.9, adult] Onset: 03-09-2019 Resolved: 08-02-2022 09-29-2020 Chronic Pulmonary heart disease (20 sources) Pulmonary embolism; [...] (20 sources) Onset: 07-29-2020 Resolved: 01-17-2023 01-17-2023 Unclassified (1 source) Abdominal aortic aneurysm, ruptured, unspecified (Multi); Translations: [Abdominal aortic aneurysm, ruptured, unspecified (Multi)] Onset: 10-02-2024 Results Test Name Value Interpretation Reference Range Facility POCT Protime / INRon 025 INR Coag (PPP) [Relative time] 1.8 {INR} Abnormal 0.8 - 1.2 [facility] Interpretation and review of laboratory results Abnormal [facility] TRANSTHORACIC ECHO (TTE) BARRERA ITEDon 10-02-2024 TRANSTHORACIC ECHO (TTE) LIMITED [address], [address] [place] [address] TRANSTHORACIC ECHOCARDIOGRAM REPORT Patient Name: [place] Giselle Physician: [id number] Yvonne Haas MD, [facility] Study Date: 10/02/2024 Ordering Provider: [id number] YVONNE HAAS MRN/PID: [id number] Fellow: Nurse: Date of /Age: 7 1945 International Recruiter: Taty shoemaker RDCS, RVT Gender Assigned at F Additional Staff: : Height: 167.64 cm Admit Date: Weight: 90.72 kg Admission Status: Outpatient BSA / BMI: 2.00 m2 / 32.28 Department Location: [facility] kg/[address] Blood Pressure: 136 /82 mmHg Study Type: TRANSTHORACIC ECHO (TTE) LIMITED Diagnosis/ICD: Cardiomyopathy, unspecified-I42.9; Abdominal aortic aneurysm, ruptured, unspecified-I71.30; Chronic diastolic (congestive) heart failure (CHF)-I50.32 Indication: Paroxsmal Atrial Fibrillation, Sick Sinus Syndrome, PVC's, HTN, Obesity CPT Codes: Echo Limited-10987 Study Detail: The following Echo studies were [...] Normal Ranges: LVOT Diameter: 2.30 cm (1.8-2.4cm) [id number] Yvonne Haas MD, FACC Electronically signed on 10/10/2024 at 4:22:13 PM Final CONCLUSIONS: 1. Left ventricular ejection fraction is mildly decreased by visual estimate at 40-45%. 2. Mild concentric left ventricular hypertrophy. 3. There is normal right ventricular global systolic function. 4. When compared to study from December 2023, the left ventricle ejection fraction is slightly improved. [facility] C Urineon 09-19-2024 Bacteria identified Cx Nom [...] Locations R1: This test was performed at: [facility], [address] [place] [address], [facility] , , [facility] Comment on above: Performed By: #### 2 [id number] #### [facility] [address] [place] [address] Ambulatory Visit Summaryon 0 09-17-2024 Ambulatory Visit [...] When: Comments: sched cysto/UD Where: [address] [place] [address] Medications What How Much When Instructions Unchanged [...] including vitamins, herbs, eye drops, creams, and woza-mks-pefeocg medicines. ??? Any problems you or family members have had with anesthetic medicines. ??? Any blood disorders you have. ??? Any surgeries you have had. ??? Any medical conditions you have. ??? Whether you are or may be . What are the risks? Generally, this is a safe procedure. However, problems may occur, including: ??? Infection (more content not included)... Normal [facility] Urology Office/Clinic Noteon 09-17-2024 Urology [...] Local anesthesia. 4. 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 Elevated risk for periop complications. [2] Follow-up With When Contact Information HARPER DE LA ROSA, Allyson Montenegro, URL [address] [place] [address] [place] [address] Additional Instructions: sched cysto/UD Patient Education Cystoscopy [...] refills spironola (more content not included)... Normal [facility] Comment on above: Result Comment: [...] Adhikari MD on 09/17/2024 10:25 AM Normal [facility] CBC WITH AUTO DIFFERENTIALon 09-13-2024 Band form neutrophils/100 WBC (Bld) 1 % Normal [facility] Comment on above: Result Comment: This is an appended report. These results have been appended to a previously preliminary verified report. Performed By: #### C BCA #### [facility] ([facility]) [address] [place] [address] VIR CELLAVISION BASOPHILS ABSOLUTE COUNT (10*3/UL) BY MANUAL COUNT 0.2 10*3/uL Normal 0.0-0.2 [facility] Comment on above: Result Comment: This is an appended report. These results have been appended to a previously preliminary verified report. Performed By: #### C BCA #### [facility] ([facility]) [address] [place] [address] VIR CELLAVISION BASOPHILS RELATIVE PERCENT BY MANUAL COUNT 3 % Normal [facility] Comment on above: Result Comment: This is an appended report. These results have been appended to a previously preliminary verified report. Performed By: #### C BCA #### [facility] ([facility]) [address] [place] [address] VIR CELLAVISION DIFFERENTIAL TYPE MANUAL DIFFERENTIAL Normal [facility] Comment on above: Result Comment: This is an appended report. These results have been appended to a previously preliminary verified report. Performed By: #### C BCA #### [facility] ([facility]) [address] [place] [address] VIR CELLAVISION EOSINOPHILS ABSOLUTE COUNT (10*3/UL) BY MANUAL COUNT 0.3 10*3/uL Normal 0.0-0.4 [facility] Comment on above: Result Comment: This is an appended report. These results have been appended to a previously preliminary verified report. Performed By: #### C BCA #### [facility] ([facility]) [address] [place] [address] VIR CELLAVISION EOSINOPHILS PERCENT BY MANUAL COUNT 5 % Normal [facility] Comment on above: Result Comment: This is an appended report. These results have been appended to a previously preliminary verified report. Performed By: #### C BCA #### [facility] ([facility]) [address] [place] [address] VIR CELLAVISION LYMPHOCYTES ABSOLUTE COUNT (10*3/UL) BY MANUAL COUNT 2.5 10*3/uL Normal 1.0-3.5 [facility] Comment on above: Result Comment: This is an appended report. These results have been appended to a previously preliminary verified report. Performed By: #### C BCA #### [facility] ([facility]) [address] [place] [address] VIR CELLAVISION LYMPHOCYTES RELATIVE PERCENT BY MANUAL COUNT 36 % Normal [facility] Comment on above: Result Comment: This is an appended report. These results have been appended to a previously preliminary verified report. Performed By: #### C BCA #### [facility] ([facility]) [address] [place] [address] VIR CELLAVISION MONOCYTES ABSOLUTE COUNT (10*3/UL) IN BLOOD BY MANUAL COUNT 0.6 10*3/uL Normal 0.0-0.9 [facility] Comment on above: Result Comment: This is an appended report. These results have been appended to a previously preliminary verified report. Performed By: #### C BCA #### [facility] ([facility]) [address] [place] [address] VIR CELLAVISION MONOCYTES RELATIVE PERCENT BY MANUAL COUNT 9 % Normal [facility] Comment on above: Result Comment: This is an appended report. These results have been appended to a previously preliminary verified report. Performed By: #### C BCA #### [facility] ([facility]) [address] [place] [address] VIR CELLAVISION NEUTROPHILS ABSOLUTE COUNT BY MANUAL COUNT 3.3 10*3/uL Normal 1.5-6.6 [facility] Comment on above: Result Comment: This is an appended report. These results have been appended to a previously preliminary verified report. Performed By: #### C BCA #### [facility] ([facility]) [address] [place] [address] VIR CELLAVISION NEUTROPHILS RELATIVE PERCENT BY MANUAL COUNT 48 % Normal [facility] Comment on above: Result Comment: This is an appended report. These results have been appended to a previously preliminary verified report. Performed By: #### C BCA #### [facility] ([facility]) [address] [place] [address] VIR CELLAVISION RBC MORPHOLOGY Normal Normal [facility] Comment on above: Result Comment: This is an appended report. These results have been appended to a previously preliminary verified report. Performed By: #### C BCA #### [facility] ([facility]) [address] [place] [address] VIR Erythrocyte distribution width (RBC) [Ratio] 13.9 % Normal 11.5-15 [facility] Comment on above: Performed By: #### C BCA #### [facility] ([facility]) [address] [place] [address] VIR Hematocrit (Bld) [Volume fraction] 44.7 % Normal 35-47 [facility] Comment on above: Performed By: #### C BCA #### [facility] ([facility]) [address] [place] [address] VIR Hemoglobin (Bld) [Mass/Vol] 14.8 g/dL Normal 11.7-15.5 [facility] Comment on above: Performed By: #### C BCA #### [facility] ([facility]) [address] [place] [address] VIR MCH (RBC) [Entitic mass] 29.2 pg Normal 27-34 [facility] Comment on above: Performed By: #### C BCA #### [facility] ([facility]) [address] [place] [address] VIR MCHC (RBC) [Mass/Vol] 33.2 g/dL Normal 32-36 [facility] Comment on above: Performed By: #### C BCA #### [facility] ([facility]) [address] [place] [address] VIR MCV (RBC) [Entitic vol] 88 fL Normal 80-100 [facility] Comment on above: Performed By: #### C BCA #### [facility] ([facility]) [address] [place] [address] VIR Platelet mean volume (Bld) [Entitic vol] 8.8 fL Normal 7-12 [facility] Comment on above: Performed By: #### C BCA #### [facility] ([facility]) [address] [place] [address] VIR Platelets (Bld) [#/Vol] 198 10*3/uL Normal 150-450 [facility] Comment on above: Performed By: #### C BCA #### [facility] ([facility]) [address] [place] [address] VIR RBC COUNT 5.07 X10E12/L Normal 3.8-5.2 [facility] Comment on above: Performed By: #### C BCA #### [facility] ([facility]) [address] [place] [address] VIR WBC (Bld) [#/Vol] 7.0 10*3/uL Normal 4-11 [facility] Comment on above: Performed By: #### C BCA #### [facility] ([facility]) [address] [place] [address] VIR COMPREHENSIVE METABOLIC PANE Dionicio 09-13-2024 Albumin [Mass/Vol] 3.9 g/dL Normal 3.2-5.3 [facility] [place] Comment on above: Performed By: #### C MP ####[facility] ([facility])[address], [place] [address] VIR ALP [Catalytic activity/Vol] 77 U/L Normal 39-130 [facility] Comment on above: Performed By: #### C MP ####[facility] ([facility])[address], [place] [address] VIR ALT [Catalytic activity/Vol] 22 U/L Normal <=31 [facility] Comment on above: Performed By: #### C MP ####[facility] ([facility])[address], [place] [address] VIR Anion gap [Moles/Vol] 9 mmol/L Normal 5-15 [facility] Comment on above: Performed By: #### C MP ####[facility] ([facility])[address], [place] [address] VIR AST [Catalytic activity/Vol] 28 U/L Normal <=41 [facility] Comment on above: Performed By: #### C MP ####[facility] ([facility])[address], [place] [address] VIR Bilirubin [Mass/Vol] 0.6 mg/dL Normal 0.3-1.2 [facility] Comment on above: Performed By: #### C MP ####[facility] ([facility])[address], [place] [address] VIR Calcium [Mass/Vol] 8.7 mg/dL Normal 8.5-10.5 [facility] [place] Comment on above: Performed By: #### C MP ####[facility] ([facility])[address], [place] [address] VIR Chloride [Moles/Vol] 107 mmol/L Normal 98-109 [facility] Comment on above: Performed By: #### C MP ####[facility] ([facility])[address], [place] [address] VIR CO2 [Moles/Vol] 24 mmol/L Normal 22-32 [facility] Comment on above: Performed By: #### C MP ####[facility] ([facility])[address], [place] [address] VIR Creatinine [Mass/Vol] 1.38 mg/dL High 0.40-1.00 [facility] Comment on above: Result Comment: METH OD TRACEABLE TO IDMS STANDARD Performed By: #### C MP ####[facility] ([facility])[address], [place] [address] VIR GFR/1.73 sq M.predicted among non-blacks MDRD (S/P/Bld) [Vol rate/Area] 39 mL/min/{1.73_m2} Low >=60 [facility] Comment on above: Result Comment: Repo rted eGFR is based on the CKD-EPI 2020 equation that does not use a race coefficient. Performed By: #### C MP ####[facility] ([facility])[address], [place] [address] VIR Glucose [Mass/Vol] 87 mg/dL Normal 65-99 [facility] [place] Comment on above: Performed By: #### C MP ####[facility] ([facility])[address], [place] [address] VIR Potassium [Moles/Vol] 4.8 mmol/L Normal 3.5-5.0 [facility] Comment on above: Performed By: #### C MP ####[facility] ([facility])[address], [place] [address] VIR Protein [Mass/Vol] 6.8 g/dL Normal 6.0-8.0 [facility] Comment on above: Performed By: #### C MP ####[facility] ([facility])[address], [place] [address] VIR Sodium [Moles/Vol] 140 mmol/L Normal 134-146 [facility] Comment on above: Performed By: #### C MP ####[facility] ([facility])[address], [place] [address] VIR Urea nitrogen [Mass/Vol] 23 mg/dL Normal 5-27 [facility] Comment on above: Performed By: #### C MP ####[facility] ([facility])[address], [place] [address] VIR LIPID PROFILEon 09-13-2024 Cholesterol [Mass/Vol] 204 mg/dL High 150-200 [facility] Comment on above: Performed By: #### L IPR ####[facility] ([facility])[address], [place] [address] VIR Cholesterol in HDL [Mass/Vol] 55 mg/dL Normal >39 [facility] Comment on above: Result Comment: HDL <40 mg/dL - High Risk HDL > or = 40mg/dL- Desirable HDL >60 mg/dL - Negative Risk Performed By: #### L IPR ####[facility] ([facility])[address], [place] [address] VIR Cholesterol in LDL [Mass/Vol] 120 mg/dL Normal <130 [facility] Comment on above: Result Comment: LDL <100 mg/dL - Desirable LDL >160 mg/dL - High Risk Performed By: #### L IPR ####[facility] ([facility])[address], [place] [address] VIR CHOLESTEROL:HDL 3.7 Normal 1.0-5.0 [facility] Comment on above: Performed By: #### L IPR ####[facility] ([facility])[address], [place] [address] VIR Triglyceride [Mass/Vol] 147 mg/dL Normal 27-150 [facility] Comment on above: Performed By: #### L IPR ####[facility] ([facility])[address], [place] [address] VIR VERY LOW LIPOPROTEIN 29 mg/dL Normal 0-30 [facility] Comment on above: Performed By: #### L IPR ####[facility] ([facility])[address], [place] [address] VIR TSHon 09-13-2024 TSH 1.59 uIU/mL Normal 0.49-4.67 [facility] Comment on above: Performed By: #### T #### [facility] ([facility]) [address] [place] [address] VIR POCT Protime / INRon --2 025 INR Coag (PPP) [Relative time] 1.9 {INR} Abnormal 0.8 - 1.2 [facility] Interpretation and review of laboratory results Abnormal [facility] POCT Protime / INRon --2 025 INR Coag (PPP) [Relative time] 3.1 {INR} Abnormal 0.8 - 1.2 [facility] Interpretation and review of laboratory results Abnormal [facility] ECG 12 Leadon 07-25-2024 ECG revealed normal sinus rhythm, right axis deviation, low voltage QRS complex, abnormal ECG. [facility] Work Phone: POCT Protime / INRon 07-18-2 025 INR Coag (PPP) [Relative time] 2 {INR} Abnormal 0.8 - 1.2 [facility] Interpretation and review of laboratory results Abnormal [facility] POCT Protime / INRon 06-19-2 025 INR Coag (PPP) [Relative time] 1.4 {INR} Abnormal 0.8 - 1.2 [facility] Interpretation and review of laboratory results Abnormal [facility] POCT Protime / INRon 06-07-2 025 INR Coag (PPP) [Relative time] 1.4 {INR} Abnormal 0.8 - 1.2 [facility] Interpretation and review of laboratory results Abnormal [facility] POCT Protime / INRon 05-18-2 025 INR Coag (PPP) [Relative time] 1.9 {INR} Abnormal 0.8 - 1.2 [facility] Interpretation and review of laboratory results Abnormal [facility] POCT Protime / INRon 05-09-2 025 INR Coag (PPP) [Relative time] 2.5 {INR} Abnormal 0.8 - 1.2 [facility] Interpretation and review of laboratory results Abnormal [facility] POCT Protime / INRon 04-30-2 025 INR Coag (PPP) [Relative time] 4.1 {INR} Abnormal 0.8 - 1.2 [facility] Interpretation and review of laboratory results Abnormal [facility] POCT Protime / INRon 04-16- 025 INR Coag (PPP) [Relative time] 3.8 {INR} Abnormal 0.8 - 1.2 [facility] Interpretation and review of laboratory results Abnormal [facility] CT BRAIN WO CONTon 5 CT BRAIN [...] Lizarraga MD on 04/09/2024 1:18 AM Normal [facility] XR KNEE RT 3 VWSon 5 XR KNEE RT 3 VWS XR KNEE [...] degenerative changes with small effusion. Finalized by Lnonie Lizarraga MD on 04/09/2024 1:22 AM Normal [facility] XR SHOULDER RT MIN 2 VWSon 0 [...] Lizarraga MD on 04/09/2024 1:19 AM Normal [facility] XR WRIST RT MIN 3 VWSon 03-0 [...] Lizarraga MD on 04/09/2024 1:20 AM Normal [facility] POCT Protime / INRon 03-26-2 025 INR Coag (PPP) [Relative time] 2.7 {INR} Abnormal 0.8 - 1.2 [facility] Interpretation and review of laboratory results Abnormal [facility] POCT Protime / INRon 03-05-2 025 INR Coag (PPP) [Relative time] 3.4 {INR} Abnormal 0.8 - 1.2 [facility] Interpretation and review of laboratory results Abnormal [facility] Zoë 02-20-2024 AST [Catalytic activity/Vol] 25 U/L Normal 0-41 [facility] Comment on above: Performed By: #### B MICHEAL, 1919-09 #### [facility] ([id number]) [address] [place] [address] BASIC METABOLIC PANLon 02-19 Anion gap [Moles/Vol] 9 mmol/L Normal 5-15 [facility] Comment on above: Performed By: #### Velvte BURTON, 1919-09 #### [facility] ([id number]) [address], [address] [place] [address] Calcium [Mass/Vol] 9.2 mg/dL Normal 8.5-10.5 [facility] Comment on above: Performed By: #### Velvet BURTON, 1919-09 #### [facility] ([id number]) [address], [address] [place] [address] Chloride [Moles/Vol] 108 mmol/L Normal 98-109 [facility] Comment on above: Performed By: #### Velvet BURTON, 1919-09 #### [facility] ([id number]) [address], [address] [place] [address] CO2 [Moles/Vol] 23 mmol/L Normal 22-32 [facility] Comment on above: Performed By: #### Velvet BURTON, 1919-09 #### [facility] ([id number]) [address], [address] [place] [address] Creatinine [Mass/Vol] 1.35 mg/dL High 0.40-1.00 [facility] Comment on above: Result Comment: METH OD TRACEABLE TO IDMS STANDARD Performed By: #### Velvet BURTON, 1919-09 #### [facility] ([id number]) [address] [place] [address] GFR/1.73 sq M.predicted among non-blacks MDRD (S/P/Bld) [Vol rate/Area] 40 mL/min/{1.73_m2} Low >59 [facility] Comment on above: Result Comment: Reported eGFR is based on the CKD-EPI 2020 equation that does not use a race coefficient. Performed By: #### Velvet BURTON, 1919-09 #### [facility] ([id number]) [address], [address] [place] [address] Glucose [Mass/Vol] 84 mg/dL Normal 65-99 [facility] Comment on above: Performed By: #### Velvet BURTON, 1919-09 #### [facility] ([id number]) [address], [address] [place] [address] Potassium [Moles/Vol] 4.6 mmol/L Normal 3.5-5.0 [facility] Comment on above: Performed By: #### Velvet BURTON, 1919-09 #### [facility] ([id number]) [address], [address] [place] [address] Sodium [Moles/Vol] 140 mmol/L Normal 134-146 [facility] Comment on above: Performed By: #### Velvet BURTON, 1919-09 #### [facility] ([id number]) [address], [address] [place] [address] Urea nitrogen [Mass/Vol] 30 mg/dL High 5-27 [facility] Comment on above: Performed By: #### Velvet BURTON, 1919-09 #### [facility] ([id number]) [address], [address] [place] [address] POCT Protime / INRon 025 INR Coag (PPP) [Relative time] 4.8 {INR} Abnormal 0.8 - 1.2 [facility] Interpretation and review of laboratory results Abnormal [facility] POCT Protime / INRon 024 INR Coag (PPP) [Relative time] 3.6 {INR} Abnormal 0.8 - 1.2 [facility] Interpretation and review of laboratory results Abnormal [facility] POCT Protime / INRon 024 INR Coag (PPP) [Relative time] 3.7 {INR} Abnormal 0.8 - 1.2 [facility] Interpretation and review of laboratory results Abnormal [facility] POCT Protime / INRon 024 INR Coag (PPP) [Relative time] 2.5 {INR} Abnormal 0.8 - 1.2 [facility] Interpretation and review of laboratory results Abnormal [facility] POCT Protime / INRon 024 INR Coag (PPP) [Relative time] 2.4 {INR} Abnormal 0.8 - 1.2 [facility] Interpretation and review of laboratory results Abnormal [facility] POCT Protime / INRon 024 INR Coag (PPP) [Relative time] 1.6 {INR} Abnormal 0.8 - 1.2 [facility] Interpretation and review of laboratory results Abnormal [facility] TSH Qnon 12-16-2023 TSH 1.44 uIU/mL Normal 0.49-4.67 [facility] Comment on above: Performed By: #### 3 016-3 #### [facility] ([id number]) [address] [place] [address], [address] [place] [address] TRANSTHORACIC ECHO (TTE) COM PLETEon 12-14-2023 TRANSTHORACIC ECHO (TTE) COMPLETE [address], [address] [address] TRANSTHORACIC ECHOCARDIOGRAM REPORT Patient Name: EDUARDO HOWARD Reading Physician: [id number] Yvonne Haas MD, [facility] Study Date: 12/14/2023 Ordering Provider: [id number] YVONNE HAAS MRN/PID: [id number] Fellow: Nurse: Date of /Age: 7 1945 / 78 years International Recruiter: Taty Allen RDCS, RVT Gender Assigned at F Additional Staff: : Height: 167.64 cm Admit Date: Weight: 94.80 kg Admission Status: BSA / BMI: 2.04 m2 / 33.73 Department Location: [facility] [address] Blood Pressure: 130 /84 mmHg Study Type: TRANSTHORACIC ECHO (TTE) COMPLETE Diagnosis/ICD: Dilated cardiomyopathy-I42.0 Indication: Paroxysmal Atrial Fibrillation, PVC's, Sick Sinus Syndrome, Mild CAD, HTN, Obesity CPT Codes: Echo Complete w Full Doppler-17747 Study Detail: The following Echo studies were [...] PV Ma (more content not included)... Normal [facility] US Heart Transthoracicon Aortic Valve Area by Continuity of Peak Velocity 1.85 cm2 [facility] Work Phone: [phone] Aortic Valve Area by Continuity of VTI 1.74 cm2 [facility] Work Phone: [phone] AV mn grad 7 mmHg [facility] Work Phone: [phone] AV pk grad 13 mmHg [facility] Work Phone: [phone] AV pk kristie 1.77 m/s [facility] Work Phone: [phone] LV A4C EF 60.3 [facility] Work Phone: [phone] LV EF 35 % [facility] Work Phone: [phone] LVIDd 4.48 cm [facility] Work Phone: LVOT diam 2.3 cm [facility] Work Phone: MV avg E/e' ratio 10.[address] [facility] Work Phone: MV E/A ratio 0.86 [facility] Work Phone: [address], Suite [facility], [place] [address] TRANSTHORACIC ECHOCARDIOGRAM REPORT Patient Name: EDUARDO Desai Physician: [id number] Yvonne Haas MD, [facility] Study Date: 12/14/2023 Ordering Provider: [id number] YVONNE HAAS MRN/PID: [id number] Fellow: Nurse: Date of /Age: 7 1945 / 78 years International Recruiter: Taty Allen RDCS, RVT Gender Assigned at F Additional Staff: : Height: 167.64 cm Admit Date: Weight: 94.80 kg Admission Status: BSA / BMI: 2.04 m2 / 33.73 Department Location: [facility] kg/m2 Heart [place] Blood Pressure: 130 /84 mmHg Study Type: TRANSTHORACIC ECHO (TTE) COMPLETE Diagnosis/ICD: Dilated cardiomyopathy-I42.0 Indication: Paroxysmal Atrial Fibrillation, PVC's, Sick Sinus Syndrome, Mild CAD, HTN, Obesity CPT Codes: Echo Complete w Full Doppler-46100 Study Detail: The following Echo studies were [...] included)... Yvonne Mak M D - 12/14/[address], Suite [facility], [place] [address] TRANSTHORACIC ECHOCARDIOGRAM REPORT Patient Name: [facility] Reading Physician: [id number] Yvonne Haas MD, [facility] Study Date: 12/14/2023 Ordering Provider: [id number] YVONNE HAAS MRN/PID: [id number] Fellow: Nurse: Date of /Age: 7 1945 / 78 years International Recruiter: Taty Allen RDCS, RVT Gender Assigned at F Additional Staff: : Height: 167.64 cm Admit Date: Weight: 94.80 kg Admission Status: BSA / BMI: 2.04 m2 / 33.73 Department Location: [facility] kg/m2 Heart [place] Blood Pressure: 130 /84 mmHg Study Type: TRANSTHORACIC ECHO (TTE) COMPLETE Diagnosis/ICD: Dilated cardiomyopathy-I42.0 Indication: Paroxysmal Atrial Fibrillation, PVC's, Sick Sinus Syndrome, Mild CAD, HTN, Obesity CPT Codes: Echo Complete w Full Doppler-27945 Study Detail: The following Echo studies were [...] AI Half-time: 538 (more content not included)... [facility] Work Phone: [facility] Work Phone: ECG 12 Leadon 12-13-2023 ECG revealed normal sinus rhythm with first-degree AV block, low voltage QRS complex, abnormal ECG [facility] Work Phone: POCT Protime / INRon 024 INR Coag (PPP) [Relative time] 1.3 {INR} Abnormal 0.8 - 1.2 [facility] Interpretation and review of laboratory results Abnormal [facility] Automated basophil %Ordered By: Tatiana Galvez on 12-01-2023 Basophils/100 WBC (Bld) 1.4 % Normal . [facility] Comment on above: Performed By: #### C BC, BNP, HS TROP, PT, BMP #### [facility] [address] Automated basophil countOrde red By: Tatiana Galvez on 12-01-2023 Basophils (Bld) [#/Vol] 0.1 10*3/uL Normal 0.0-0.2 [facility] Comment on above: Result Comment: PERF ORMED BY: [place] [address] PATHOLOGIST DEHAIRING MACHINE TENDER ROWENA LIPSCOMB M.D. Performed By: #### C BC, BNP, HS TROP, PT, BMP #### [address] Automated blood monocyte cou ntOrdered By: Tatiana Galvez on 12-01-2023 Monocytes (Bld) [#/Vol] 0.5 10*3/uL Normal 0.0-0.8 [facility] Comment on above: Performed By: #### C BC, BNP, HS TROP, PT, BMP #### [address] Automated eosinophil %Ordere d By: Tatiana Lukasmagnoe on 12-01-2023 Eosinophils/100 WBC (Bld) 3.5 % Normal . [facility] Comment on above: Performed By: #### C BC, BNP, HS TROP, PT, BMP #### [address] Automated eosinophil countOr dered By: Tatiana Lukashardik on 12-01-2023 Eosinophils (Bld) [#/Vol] 0.3 10*3/uL Normal 0.0-0.45 [facility] Comment on above: Performed By: #### C BC, BNP, HS TROP, PT, BMP #### [address] Automated monocyte %Ordered By: Tatiana Lukashardik on 12-01-2023 Monocytes/100 WBC (Bld) 6.3 % Normal . [facility] Comment on above: Performed By: #### C BC, BNP, HS TROP, PT, BMP #### [address] Automated neutrophil %Ordere d By: Tatiana Lukasfle on 12-01-2023 Neutrophils/100 WBC (Bld) 60.3 % Normal . [facility] Comment on above: Performed By: #### C BC, BNP, HS TROP, PT, BMP #### [address] [place] [address] [place] BNP ser/plasOrdered By: Zachary montanomartin Galvez on 12-01-2023 Natriuretic peptide B (Bld) [Mass/Vol] 216.0 pg/mL High 5-100 [facility] Comment on above: Result Comment: PERF ORMED BY: [place] [address] PATHOLOGIST DEHAIRING MACHINE TENDER ROWENA LIPSCOMB M.D. Performed By: #### C BC, BNP, HS TROP, PT, BMP #### [address] Basic Metabolic Panelon 11-08 Creatinine Clr Calc Pharmacy 37.72 Normal [facility] Comment on above: Result Comment: PERF ORMED BY: [place] [address] PATHOLOGIST DEHAIRING MACHINE TENDER ROWENA LIPSCOMB M.D. Performed By: #### C BC, BNP, HS TROP, PT, BMP #### [address] GFR/1.73 sq M.predicted MDRD (S/P/Bld) [Vol rate/Area] 37.858 mL/min/{1.73_m2} Normal [facility] Comment on above: Performed By: #### C BC, BNP, HS TROP, PT, BMP #### [address] angio chest PE protocolon 12-01-2023 CT angio chest PE protocol [place] [address] CT Scan Report Signed Patient: Eduardo Howard MR#: [id number] : 1945 Acct:[id number] Age/Sex: 78 / F ADM Date: 12/01/23 Loc: ER Room: Type: [facility] ER Attending Dr: Copies to: DO Sergio Key DO, RES Ordering Provider: Sergio Root DO, RES Date [...] Stephani Merchant M.D.12/01/2023 5:21 PM Dictation Location: [place] [address] Transcribed By: JONNIE 12/01/23 172 Dictated By: Stephani Merchant MD 12/01/231713 Signed By: 12/01/23 172 Normal [facility] Calcium [Mass/volume] in Ser um or PlasmaOrdered By: Tatiana Galvez on 12-01-2023 Calcium [Mass/Vol] 8.9 mg/dL Normal 8.6-10.3 [facility] Comment on above: Performed By: #### C BC, BNP, HS TROP, PT, BMP #### [facility] [address] [place] [address] Carbon dioxide, total [Moles /volume] in Serum or PlasmaOrdered By: Tatiana Galvez on 12-01-2023 CO2 [Moles/Vol] 22.3 mmol/L Normal 21.0-31.[address] [facility] Comment on above: Performed By: #### C BC, BNP, HS TROP, PT, BMP #### [address] Chloride [Moles/volume] in S josesito or PlasmaOrdered By: Tatiana Galvez on 12-01-2023 Chloride [Moles/Vol] 107 mmol/L Normal 98-107 [facility] Comment on above: Performed By: #### C BC, BNP, HS TROP, PT, BMP #### [address] Complete Blood Count Auto Di ffon 12-01-2023 Mean Corpuscular HGB Conc 34.1 g/dL Normal 32.0-35.0 [facility] Comment on above: Performed By: #### C BC, BNP, HS TROP, PT, BMP #### [address] Monocytes/100 WBC (Bld) 22.41 % High 0.00-20.00 [facility] Comment on above: Result Comment: For adults in ED, MDW > 20.0 may be associated with a higher risk of sepsis during the first 12 hrs of hospital admission Performed By: #### C BC, BNP, HS TROP, PT, BMP #### [address] NRBC% 0.1 /100{WBC} Normal 0-0.5 [facility] Comment on above: Performed By: #### C BC, BNP, HS TROP, PT, BMP #### [address] Creatinine [Mass/volume] in Serum or PlasmaOrdered By: Tatiana Galvez on 12-01-2023 Creatinine [Mass/Vol] 1.42 mg/dL High 0.60-1.20 [facility] Comment on above: Performed By: #### C BC, BNP, HS TROP, PT, BMP #### [address] ECG 12 lead ECGon 12-01-2023 ECG 12 lead ECG [facility] Main [address] [address] Electrocardiograph Report Signed Patient: Eduardo Howard MR#: [id number] : 1945 Acct:[id number] Age/Sex: 78 / F ADM Date: 12/01/23 Loc: ER Room: Type: [facility] ER Attending Dr: Ordering Provider: Tami Cardoza [...] was found Confirmed by TAMI CARDOZA DO ([id number]) on 12/02/2023 12:57:39 AM Referred By: Electronically Signed By: TAMI CARDOZA DO Transcribed By: MUS Signed By Tami Cardoza DO 12/01 0057 Normal [facility] ECG 12 lead ECG [address] [address] Electrocardiograph Report Signed Patient: Eduardo Howard MR#: [id number] : 1945 Acct:[id number] Age/Sex: 78 / F ADM Date: 12/01/23 Loc: ER Room: Type: [facility] ER Attending Dr: Ordering Provider: Tatiana Galvez [...] now present Confirmed by TAMI CARDOZA DO ([id number]) on 12/02/2023 12:57:39 AM Referred By: Electronically Signed By: TAMI CARDOZA DO Transcribed By: MUS Signed By Tami Cardoza DO 12/01 0057 Normal [facility] Erythrocyte distribution wid th [Ratio] by Automated countOrdered By: Tatiana Galvez on 12-01-2023 Erythrocyte distribution width (RBC) [Ratio] 13.8 % Normal 11.9-15.3 [facility] Comment on above: Performed By: #### C BC, BNP, HS TROP, PT, BMP #### [facility] [address] Erythrocytes [#/volume] in B lood by Automated countOrdered By: Tatiana Galvez on 12-01-2023 RBC (Bld) [#/Vol] 4.90 10*6/uL Normal 3.60-5.[address] [facility] Comment on above: Performed By: #### C BC, BNP, HS TROP, PT, BMP #### [facility] [address] [place] [address] [place] Glucose [Mass/volume] in Ser um or PlasmaOrdered By: Tatiana Galvez on 12-01-2023 Glucose [Mass/Vol] 89 mg/dL Normal 70-100 [facility] Comment on above: ADA recommended refe rence rangeRandom Glucose Reference Range is dependent on time and content of last meal. Glucose of more than 200 mg/dL in a nonstressed, ambulatory subject supports the diagnosis of Diabetes Mellitus. Result Comment: [place] om Glucose Reference Range is dependent on time and content of last meal. Glucose of more than 200 mg/dL in a nonstressed, ambulatory subject supports the diagnosis of Diabetes Mellitus. ADA recommended reference range Performed By: #### C BC, BNP, HS TROP, PT, BMP #### [facility] [address] [place] [id number] [place] Hematocrit [Volume Fraction] of Blood by Automated countOrdered By: Tatiana Galvez on 12-01-2023 Hematocrit (Bld) [Volume fraction] 42.8 % Normal 34.0-46.4 [facility] Comment on above: Performed By: #### C BC, BNP, HS TROP, PT, BMP #### [address] Hemoglobin [Mass/volume] in BloodOrdered By: Tatiana Galvez on 12-01-2023 Hemoglobin (Bld) [Mass/Vol] 14.6 g/dL Normal 11.8-15.4 [facility] Comment on above: Performed By: #### C BC, BNP, HS TROP, PT, BMP #### [address] INR in Platelet poor plasma by Coagulation assayOrdered By: Tatiana Galvez on 12-01-2023 INR Coag (PPP) [Relative time] 1.6 {INR} Normal [facility] Comment on above: INR Therapeutic [...] heart valves: 3 - 4.5 PERFORMED BY: [place] [address] PATHOLOGIST DEHAIRING MACHINE TENDER ROWENA LIPSCOMB M.D. Performed By: #### C BC, BNP, HS TROP, PT, BMP #### [address] Leukocytes [#/volume] correc henry for nucleated erythrocytes in Blood by Automated counOrdered By: Tatiana Galvez on 12-01-2023 WBC corrected for nucl RBC Auto (Bld) [#/Vol] 7.5 10*3/uL 3.8-11.6 [facility] Leukocytes [#/volume] in Blo od by Automated countOrdered By: Tatiana Galvez on 12-01-2023 WBC (Bld) [#/Vol] 7.5 10*3/uL Normal 3.8-11.6 [facility] Comment on above: Performed By: #### C BC, BNP, HS TROP, PT, BMP #### [facility] [address] [place] [address] [place] Lymphocytes [#/volume] in Bl ood by Automated countOrdered By: Tatiana Galvez on 12-01-2023 Lymphocytes (Bld) [#/Vol] 2.1 10*3/uL Normal 1.00-4.8 [facility] Comment on above: Performed By: #### C BC, BNP, HS TROP, PT, BMP #### [place] [address] [place] Lymphocytes/100 leukocytes i n Blood by Automated countOrdered By: Tatiana Galvez on 12-01-2023 Lymphocytes/100 WBC (Bld) 28.5 % Normal . [facility] Comment on above: Performed By: #### C BC, BNP, HS TROP, PT, BMP #### [address] MCH [Entitic mass] by Automa henry countOrdered By: Tatiana Galvez on 12-01-2023 MCH (RBC) [Entitic mass] 29.7 pg Normal 24.7-34.3 [facility] Comment on above: Performed By: #### C BC, BNP, HS TROP, PT, BMP #### [facility] [address] [place] [address] MCHC Auto (RBC) [Mass/Vol]Or dered By: Tatiana Galvez on 12-01-2023 MCHC (RBC) [Mass/Vol] 34.1 g/dL 32.0-35.0 [facility] MCV [Entitic volume] by Auto mated countOrdered By: Tatiana Galvez on 12-01-2023 MCV (RBC) [Entitic vol] 87.2 fL Normal 80-100 [facility] Comment on above: Performed By: #### C BC, BNP, HS TROP, PT, BMP #### [facility] [address] [place] [address] Monocyte distribution width [Entitic volume] in Blood by AutomatedOrdered By: Tatiana Galvez on 12-01-2023 Monocyte distribution width Auto (Bld) [Entitic vol] 22.41 % High 0.00-20.00 [facility] Comment on above: For adults in ED, MD W > 20.0 may be associated with a higher risk of sepsis during the first 12 hrs of hospital admission Neutrophils [#/volume] in Bl ood by Automated countOrdered By: Tatiana Galvez on 12-01-2023 Neutrophils (Bld) [#/Vol] 4.5 10*3/uL Normal 1.8-7.7 [facility] Comment on above: Performed By: #### C BC, BNP, HS TROP, PT, BMP #### [facility] [address] [place] [address] No Panel InformationOrdered By: Tatiana Galvez on 12-01-2023 Estimated GFR (CKD-EPI) 37.858 mL/Min [facility] Creatinine Clearance (Chem 37.72 [facility] Nucleated erythrocytes [Pres ence] in Blood by Automated countOrdered By: Tatiana Galvez on 12-01-2023 Nucleated RBC Auto Ql (Bld) 0.1 /100{WBC} 0-0.5 [facility] Platelet mean volume [Entiti c volume] in Blood by Automated countOrdered By: Tatiana Galvez on 12-01-2023 Platelet mean volume (Bld) [Entitic vol] 8.5 fL Normal 6.3-10.7 [facility] Comment on above: Performed By: #### C BC, BNP, HS TROP, PT, BMP #### [facility] [address] [place] [address] Platelets [#/volume] in Bloo d by Automated countOrdered By: Tatiana Galvez on 12-01-2023 Platelets (Bld) [#/Vol] 185 10*3/uL Normal 150-450 [facility] Comment on above: Performed By: #### C BC, BNP, HS TROP, PT, BMP #### [address] Potassium [Moles/volume] in Serum or PlasmaOrdered By: Tatiana Galvez on 12-01-2023 Potassium [Moles/Vol] 4.8 mmol/L Normal 3.5-5.1 [facility] Comment on above: Performed By: #### C BC, BNP, HS TROP, PT, BMP #### [address] Prothrombin time (PT)Ordered By: Tatiana Galvez on 12-01-2023 PT Coag (PPP) [Time] 18.3 s High 9.0-12.9 [facility] Comment on above: A hematocrit value g reater than 55% may lead to inaccurate results in coagulation testing. Patients having hematocrit values >55% require a special collection tube for coagulation studies. Please contact the laboratory at [phone] for redraw instructions. Result Comment: A he matocrit value greater than 55% may lead to inaccurate results in coagulation testing. Patients having hematocrit values >55% require a special collection tube for coagulation studies. Please contact the laboratory at [phone] for redraw instructions. Performed By: #### C BC, BNP, HS TROP, PT, BMP #### [address] Serum or plasma anion gap de terminationOrdered By: Tatiana Galvez on 12-01-2023 Anion gap [Moles/Vol] 13.5 mmol/L Normal 6.0-15.0 [facility] Comment on above: Performed By: #### C BC, BNP, HS TROP, PT, BMP #### [address] Sodium [Moles/volume] in Ser um or PlasmaOrdered By: Tatiana Galvez on 12-01-2023 Sodium [Moles/Vol] 138 mmol/L Normal 136-145 [facility] Comment on above: Performed By: #### C BC, BNP, HS TROP, PT, BMP #### [address] Troponin I High Sensitivityo n 12-01-2023 Troponin I High Sensitivity 7.2 pg/mL Normal 0.0-15.0 [facility] Comment on above: Result Comment: PERF ORMED BY: [place] [address] PATHOLOGIST DEHAIRING MACHINE TENDER ROWENA LIPSCOMB M.D. Performed By: #### H S TROP ####[address] Troponin I High Sensitivity 7.7 pg/mL Normal 0.0-15.0 [facility] Comment on above: Result Comment: PERF ORMED BY: [place] [address] PATHOLOGIST DEHAIRING MACHINE TENDER ROWENA LIPSCOMB M.D. Performed By: #### C BC, BNP, HS TROP, PT, BMP #### [address] Troponin I.cardiac [Mass/vol ume] in Serum or Plasma by Detection limit <= 0.01 ng/Ordered By: Melia Reynaga on 12-01-2023 Troponin I.cardiac DL <= 0.01 ng/mL [Mass/Vol] 7.2 pg/mL 0.0-15.0 [facility] Urea nitrogen [Mass/volume] in Serum or PlasmaOrdered By: Tatiana Galvez on 12-01-2023 Urea nitrogen [Mass/Vol] 26 mg/dL High 08-31 [facility] Comment on above: Performed By: #### C BC, BNP, HS TROP, PT, BMP #### [place] [id number] [place] XR chest 2V*on 12-01-2023 XR chest 2V* [facility] Main [place] [address] [place] [address] XRay Report Signed Patient: Eduardo Howard MR#: [id number] : 1945 Acct:[id number] Age/Sex: 78 / F ADM Date: 12/01/23 [...] Andre Álvarez M.D.12/01/2023 2:08 PM Dictation Location: [place] [address] Transcribed By: [facility] 12/01/23 1408 Dictated By: Andre Álvarez DO 12/01/23 1407 Signed By: 12/01/23 1408 Normal [facility] POCT Protime / INRon 024 INR Coag (PPP) [Relative time] 1.4 {INR} Abnormal 0.8 - 1.2 [facility] Interpretation and review of laboratory results Abnormal [facility] POCT Protime / INRon 024 INR Coag (PPP) [Relative time] 1.6 {INR} Abnormal 0.8 - 1.2 [facility] Interpretation and review of laboratory results Abnormal [facility] POCT Protime / INRon 024 INR Coag (PPP) [Relative time] 2.3 {INR} Abnormal 0.8 - 1.2 [facility] Interpretation and review of laboratory results Abnormal [facility] POCT Protime / INRon 024 INR Coag (PPP) [Relative time] 3.1 {INR} Abnormal 0.8 - 1.2 [facility] Interpretation and review of laboratory results Abnormal [facility] POCT Protime / INRon 024 INR Coag (PPP) [Relative time] 4.7 {INR} Abnormal 0.8 - 1.2 [facility] Interpretation and review of laboratory results Abnormal [facility] POCT Protime / INRon 024 INR Coag (PPP) [Relative time] 4.1 {INR} Abnormal 0.8 - 1.2 [facility] Interpretation and review of laboratory results Abnormal [facility] POCT Protime / INRon 024 INR Coag (PPP) [Relative time] 1.4 {INR} Abnormal 0.8 - 1.2 [facility] Interpretation and review of laboratory results Abnormal [facility] Aspartate aminotransferase [ Enzymatic activity/volume] in Serum or PlasmaOrdered By: Jose Martin Jones on 03-25-2023 AST [Catalytic activity/Vol] 21 U/L Normal 13-39 [facility] Comment on above: Performed By: #### T SH3, AST, BMP ####[place] [address] [address] Basic Metabolic Panelon 03-10 GFR/1.73 sq M.predicted MDRD (S/P/Bld) [Vol rate/Area] 38.094 mL/min/{1.73_m2} Normal [facility] Comment on above: Performed By: #### T SH3, AST, BMP ####[place] [address] [place] [id number] [facility] Calcium [Mass/volume] in Ser um or PlasmaOrdered By: Jose Martin Jones on 03-25-2023 Calcium [Mass/Vol] 9.2 mg/dL Normal 8.6-10.3 [facility] Comment on above: Performed By: #### T SH3, AST, BMP ####[place] [address] [place] [address] [facility] Carbon dioxide, total [Moles /volume] in Serum or PlasmaOrdered By: Jose Martin Jones on 03-25-2023 CO2 [Moles/Vol] 27.7 mmol/L Normal 21.0-31.[address] [facility] Comment on above: Performed By: #### T SH3, AST, BMP ####[facility] [place] [address] [facility] Chloride [Moles/volume] in S josesito or PlasmaOrdered By: Jose Martin Jones on 03-25-2023 Chloride [Moles/Vol] 108 mmol/L High 98-107 [facility] Comment on above: Performed By: #### T SH3, AST, BMP ####[facility] [place] [address] [facility] Creatinine [Mass/volume] in Serum or PlasmaOrdered By: Jose Martin Jones on 03-25-2023 Creatinine [Mass/Vol] 1.42 mg/dL High 0.60-1.20 [facility] Comment on above: Performed By: #### T SH3, AST, BMP ####[place] [address] [place] [address] [facility] Glucose [Mass/volume] in Ser um or PlasmaOrdered By: Jose Martin Jones on 03-25-2023 Glucose [Mass/Vol] 96 mg/dL Normal 70-100 [facility] Comment on above: ADA recommended refe rence rangeRandom Glucose Reference Range is dependent on time and content of last meal. Glucose of more than 200 mg/dL in a nonstressed, ambulatory subject supports the diagnosis of Diabetes Mellitus. Result Comment: [place] om Glucose Reference Range is dependent on time and content of last meal. Glucose of more than 200 mg/dL in a nonstressed, ambulatory subject supports the diagnosis of Diabetes Mellitus. ADA recommended reference range Performed By: #### T SH3, AST, BMP ####[place] [address] [place] [address] [facility] No Panel InformationOrdered By: Jose Martin Jones on 03-25-2023 Estimated GFR (CKD-EPI) 38.094 mL/Min [facility] Creatinine Clearance (Chem N/A [facility] Potassium [Moles/volume] in Serum or PlasmaOrdered By: Jose Martin Jones on 03-25-2023 Potassium [Moles/Vol] 4.1 mmol/L Normal 3.5-5.1 [facility] Comment on above: Performed By: #### T SH3, AST, BMP ####[place] [address] [place] [address] [facility] Serum or plasma anion gap de terminationOrdered By: Jose Martin Jones on 03-25-2023 Anion gap [Moles/Vol] 10.4 mmol/L Normal 6.0-15.0 [facility] Comment on above: Performed By: #### T SH3, AST, BMP ####[place] [id number] [facility] Sodium [Moles/volume] in Ser um or PlasmaOrdered By: Jose Martin Jones on 03-25-2023 Sodium [Moles/Vol] 142 mmol/L Normal 136-145 [facility] Comment on above: Performed By: #### T SH3, AST, BMP ####[place] [id number] [facility] Thyrotropin [Units/volume] i n Serum or PlasmaOrdered By: Jose Martin Jones on 03-25-2023 TSH Qn 0.86 m[IU]/L Normal 0.45-5.33 [facility] Comment on above: Result Comment: PERF ORMED BY: [place] [address] PATHOLOGIST DEHAIRING MACHINE TENDER ROWENA LIPSCOMB M.D. Performed By: #### T SH3, AST, BMP ####[place] [id number] [facility] Urea nitrogen [Mass/volume] in Serum or PlasmaOrdered By: Jose Martin Jones on 03-25-2023 Urea nitrogen [Mass/Vol] 29 mg/dL High 7-25 [facility] Comment on above: Performed By: #### T SH3, AST, BMP ####[place] [id number] [facility] XR chest 2V*on 03-25-2023 XR chest 2V* [facility] Main [place] [address] [place] [address] XRay Report Signed Patient: Eduardo Howard MR#: [id number] : 1945 Acct:[id number] Age/Sex: 77 / F ADM Date: 03/25/23 Loc: RT Room: Type: [facility] Attending Dr: Jose Martin Jones MD [...] ABNORMALITY. Impression dictated by: Betito Hollins Jr., D.OMarin03/25/2023 3:20 PM Dictation Location: [place] [address] Transcribed By: [facility] 03/25/23 1520 Dictated By: Betito Hollins Jr, DO 03/25/23 1520 Signed By: 03/25/23 1520 Normal [facility] NM Heart Perfusion W stress [...] Yvonne Haas 03/14/2023 3:46 PM Dictation workstation: [id number] [facility] Interpreted By: Yvonne Dow, and Keith Fleming STUDY: MYOCARDIAL PERFUSION STRESS TEST WITH LEXISCAN Performing facility: [facility], [address] [place] [address], [address], [place] [address] [facility] Provider: Delilah Turner RN, BAND SAW MARKER PCP: Dr. Shelia Wiseman Supervising provider: Nathaly Velez MD INDICATION: Cardiomyopathy A-fib HTN Abnormal EKG; HISTORY: Gender: F; Age: 77 y/o ; Height: HT 167.6 cm cm; Weight: WT 94.802 kg kg. Abnormal EKG; HTN; Arrhythmias; Denies smoking. COMPARISON: Previous nuclear testing completed at [facility]. ACCESSION NUMBER(S): [id number] ORDERING CLINICIAN: DELILAH TURNER TECHNIQUE: ONE DAY [...] There was no evidence of attenuation artifact. [facility] Yvonne Haas M D - 03/14/2023 Interpreted By: Yvonne Haas and Giannuzzi Michael STUDY: MYOCARDIAL PERFUSION STRESS TEST WITH LEXISCAN Performing facility: [facility], [address] [place] [address], [address], [address] Provider: Delilah Turner RN, BAND SAW MARKER PCP: Dr. Shelia Wiseman Supervising provider: Nathaly Velez MD INDICATION: Cardiomyopathy A-fib HTN Abnormal EKG; HISTORY: Gender: F; Age: 77 y/o ; Height: HT 167.6 cm cm; Weight: WT 94.802 kg kg. Abnormal EKG; HTN; Arrhythmias; Denies smoking. COMPARISON: Previous nuclear testing completed at [facility]. ACCESSION NUMBER(S): [id number] ORDERING CLINICIAN: DELILAH TURNER TECHNIQUE: ONE DAY [...] Yvonne Haas 03/14/2023 3:46 PM Dictation workstation: [id number] [facility] Work Phone: Radiology Study observation (narrative) [facility] Work Phone: NM Heart Perfusion W stress and W radionuclide IVOrdered By: Yvonne Haas on 03-14-2023 [facility] Work Phone: Basic Metabolic Panelon 02-07 GFR/1.73 sq M.predicted MDRD (S/P/Bld) [Vol rate/Area] 34.560 mL/min/{1.73_m2} Normal [facility] Comment on above: Performed By: #### T SH3, BMP ####[place] [address] [place] [id number] [facility] Calcium [Mass/volume] in Ser um or PlasmaOrdered By: Delilah Turner on 02-21-2023 Calcium [Mass/Vol] 9.6 mg/dL Normal 8.6-10.3 [facility] Comment on above: Performed By: #### T SH3, BMP ####[address] [address] [facility] Carbon dioxide, total [Moles /volume] in Serum or PlasmaOrdered By: Delilah Turner on 02-21-2023 CO2 [Moles/Vol] 29.9 mmol/L Normal 21.0-31.[address] [facility] Comment on above: Performed By: #### T SH3, BMP ####[place] [id number] [facility] Chloride [Moles/volume] in S josesito or PlasmaOrdered By: Delilah Turner on 02-21-2023 Chloride [Moles/Vol] 106 mmol/L Normal 98-107 [facility] Comment on above: Performed By: #### T SH3, BMP ####[address] [address] [facility] Creatinine [Mass/volume] in Serum or PlasmaOrdered By: Delilah Turner on 02-21-2023 Creatinine [Mass/Vol] 1.54 mg/dL High 0.60-1.20 [facility] Comment on above: Performed By: #### T SH3, BMP ####[place] [id number] [place] Glucose [Mass/volume] in Ser um or PlasmaOrdered By: Delilah Turner on 02-21-2023 Glucose [Mass/Vol] 79 mg/dL Normal 70-100 [facility] Comment on above: ADA recommended refe rence rangeRandom Glucose Reference Range is dependent on time and content of last meal. Glucose of more than 200 mg/dL in a nonstressed, ambulatory subject supports the diagnosis of Diabetes Mellitus. Result Comment: [place] Glucose Reference Range is dependent on time and content of last meal. Glucose of more than 200 mg/dL in a nonstressed, ambulatory subject supports the diagnosis of Diabetes Mellitus. ADA recommended reference range Performed By: #### T SH3, BMP ####[facility] [place] [address] [facility] No Panel InformationOrdered By: Delilah Turner on 02-21-2023 Estimated GFR (CKD-EPI) 34.560 mL/Min [facility] Creatinine Clearance (Chem N/A [facility] Potassium [Moles/volume] in Serum or PlasmaOrdered By: Delilah Turner on 02-21-2023 Potassium [Moles/Vol] 4.9 mmol/L Normal 3.5-5.1 [facility] Comment on above: Performed By: #### T SH3, BMP ####[place] [address] [place] [id number] [facility] Serum or plasma anion gap de terminationOrdered By: Delilah Turner on 02-21-2023 Anion gap [Moles/Vol] 10.0 mmol/L Normal 6.0-15.0 [facility] Comment on above: Performed By: #### T SH3, BMP ####[place] [address] [place] [address] [facility] Sodium [Moles/volume] in Ser um or PlasmaOrdered By: Delilah Turner on 02-21-2023 Sodium [Moles/Vol] 141 mmol/L Normal 136-145 [facility] Comment on above: Performed By: #### T SH3, BMP ####[facility] [place] [address] [facility] Thyrotropin [Units/volume] i n Serum or PlasmaOrdered By: Delilah Turner on 02-21-2023 TSH Qn 1.23 m[IU]/L Normal 0.45-5.33 [facility] Comment on above: Result Comment: PERF ORMED BY: [facility] [address] [place] [id number] PATHOLOGIST DEHAIRING MACHINE TENDER ROWENA LIPSCOMB M.D. Performed By: #### T SH3, BMP ####[facility] [address] [place] [address] [facility] Urea nitrogen [Mass/volume] in Serum or PlasmaOrdered By: Delilah Turner on 02-21-2023 Urea nitrogen [Mass/Vol] 33 mg/dL High 7-25 [facility] Comment on above: Performed By: #### T SH3, BMP ####[facility] [id number] [place] [address] [facility] Heart TransthoracicOrdere d By: Jose Martin Jones on 01-22-2023 Aortic Valve Area by Continuity of Peak Velocity 2.34 [facility] Work Phone: Aortic Valve Area by Continuity of VTI 2.40 [facility] Work Phone: AV mn grad 4.0 [facility] Work Phone: AV pk grad 8.2 [facility] Work Phone: AV pk kristie 1.43 [facility] Work Phone: LV A4C EF 31.2 [facility] Work Phone: [phone] LVIDd 5.60 [facility] Work Phone: LVOT diam 2.30 [facility] Work Phone: MV avg E/e' ratio 7.[address] [facility] Work Phone: MV E/A ratio 1.77 [facility] Work Phone: [phone] RVSP 29.8 [facility] Work Phone: [phone] [facility] Work Phone: Heart Transthoracicon [address], [address], [place] [address] TRANSTHORACIC ECHOCARDIOGRAM REPORT Patient Name: EDUARDO Desai Physician: [id number] Jose Martin Jones MD Study Date: 01/21/2023 Ordering Provider: [id number] DELILAH TURNER MRN/PID: [id number] Fellow: Nurse: Date of /Age: 7 1945 / 77 years International Recruiter: KEENAN Gender: F Additional Staff: Height: 167.64 cm Admit Date: Weight: 97.07 kg Admission Status: BSA: 2.06 m2 Department Location: [facility] Blood Pressure: 140 /84 mmHg Study Type: TRANSTHORACIC ECHO (TTE) COMPLETE Diagnosis/ICD: Cardiomyopathy, unspecified-I42.9; Abnormal electrocardiogram [ECG] [EKG]-R94.31 Indication: Paroxysmal Atrial Fibrillation, Mild CAD, HTN, Shortness of Breath CPT Codes: Echo Complete w Full Doppler-[id number] Study Detail: The following Echo studies were [...] Peak TR Kristie (more content not included)... Jose Martin Grant MD - 01/22/[address], [address] [place] [address] TRANSTHORACIC ECHOCARDIOGRAM REPORT Patient Name: EDUARDO HOWARD Reading Physician: [id number] Jones MD Study Date: 01/21/2023 Ordering Provider: [id number] DELILAH TURNER MRN/PID: [id number] Fellow: Nurse: Date of /Age: 7 1945 / 77 years International Recruiter: KEENAN Gender: F Additional Staff: Height: 167.64 cm Admit Date: Weight: 97.07 kg Admission Status: BSA: 2.06 m2 Department Location: [facility] Blood Pressure: 140 /84 mmHg Study Type: TRANSTHORACIC ECHO (TTE) COMPLETE Diagnosis/ICD: Cardiomyopathy, unspecified-I42.9; Abnormal electrocardiogram [ECG] [EKG]-R94.31 Indication: Paroxysmal Atrial Fibrillation, Mild CAD, HTN, Shortness of Breath CPT Codes: Echo Complete w Full Doppler-[id number] Study Detail: The following Echo studies were [...] mmHg PIEDV: 1.92 m/s PADP: 17.7 mmHg [id number] Jose Martin Jones MD Electronically signed on 01/22/2023 at 4:07:35 PM Final [facility] Work Phone: Alanine aminotransferase [En zymatic activity/volume] in Serum or PlasmaOrdered By: Andrei Wiseman on 08-05-2022 ALT [Catalytic activity/Vol] 28 U/L 7-52 [facility] Albumin [Mass/volume] in Ser um or Plasma by Bromocresol green (BCG) dye binding methoOrdered By: Andrei Wiseman on 08-05-2022 Albumin BCG dye [Mass/Vol] 4.0 g/dL 3.5-5.7 [facility] Alkaline phosphatase [Enzyma tic activity/volume] in Serum or PlasmaOrdered By: Andrei Wiseman on 08-05-2022 ALP [Catalytic activity/Vol] 70 U/L 34-104 [facility] Aspartate aminotransferase [ Enzymatic activity/volume] in Serum or PlasmaOrdered By: Andrei Wiseman on 08-05-2022 AST [Catalytic activity/Vol] 29 U/L 13-39 [facility] Basophils Auto (Bld) [#/Vol] Ordered By: Andrei Wiseman on 08-05-2022 Basophils (Bld) [#/Vol] 0.1 10*3/uL 0.0-0.2 [facility] Basophils/100 WBC Auto (Bld) Ordered By: Andrei Wiseman on 08-05-2022 Basophils/100 WBC (Bld) 1.1 % . [facility] Bilirubin.total [Mass/volume ] in Serum or PlasmaOrdered By: Andrei Wiseman on 08-05-2022 Bilirubin [Mass/Vol] 0.8 mg/dL 0.3-1.0 [facility] Calcium [Mass/volume] in Ser um or PlasmaOrdered By: Andrei Wiseman on 08-05-2022 Calcium [Mass/Vol] 8.7 mg/dL 8.6-10.3 [facility] Carbon dioxide, total [Moles /volume] in Serum or PlasmaOrdered By: Andrei Wiseman on 08-05-2022 CO2 [Moles/Vol] 26.5 mmol/L 21.0-31.[address] [facility] Chloride [Moles/volume] in S josesito or PlasmaOrdered By: Andrei Wiseman on 08-05-2022 Chloride [Moles/Vol] 109 mmol/L 98-107 [facility] Cholesterol [Mass/volume] in Serum or PlasmaOrdered By: Andrei Wiseman on 08-05-2022 Cholesterol [Mass/Vol] 159 mg/dL 140-200 [facility] Comment on above: Chol less than 200 m g/dl low riskChol 201-239 mg/dl borderline riskChol 240 mg/dl and greater high risk Cholesterol in LDL Calc [Mas s/Vol]Ordered By: Andrei Wiseman on 08-05-2022 Cholesterol in LDL [Mass/Vol] 87 mg/dL 0-100 [facility] Comment on above: LDL ATP III CLASSIFI CATIONLDL less than 100 mg/dL OptimalLDL 100-129 mg/dL Near or above optimalLDL 130-159 mg/dL Borderline highLDL 160-189 mg/dL HighLDL greater than 189 mg/dL Very high Cholesterol in VLDL Calc [Ma ss/Vol]Ordered By: Andrei Wiseman on 08-05-2022 Cholesterol in VLDL [Mass/Vol] 22 mg/dL [facility] Creatinine [Mass/volume] in Serum or PlasmaOrdered By: Andrei Wiseman on 08-05-2022 Creatinine [Mass/Vol] 1.55 mg/dL 0.60-1.20 [facility] Eosinophils Auto (Bld) [#/Vo l]Ordered By: Andrei Wiseman on 08-05-2022 Eosinophils (Bld) [#/Vol] 0.4 10*3/uL 0.0-0.45 [facility] Eosinophils/100 WBC Auto (Bl d)Ordered By: Andrei Wiseman on 08-05-2022 Eosinophils/100 WBC (Bld) 6.1 % . [facility] Erythrocyte distribution wid th Auto (RBC) [Ratio]Ordered By: Andrei Wiseman on 08-05-2022 Erythrocyte distribution width (RBC) [Ratio] 14.1 % 11.9-15.3 [facility] Globulin Calc (S) [Mass/Vol] Ordered By: Andrei Wiseman on 08-05-2022 Globulin (S) [Mass/Vol] 2.4 g/dL [facility] Glucose [Mass/volume] in Ser um or PlasmaOrdered By: Andrei Wiseman on 08-05-2022 Glucose [Mass/Vol] 79 mg/dL 70-100 [facility] Comment on above: ADA recommended refe rence rangeRandom Glucose Reference Range is dependent on time and content of last meal. Glucose of more than 200 mg/dL in a nonstressed, ambulatory subject supports the diagnosis of Diabetes Mellitus. Hematocrit Auto (Bld) [Volum e fraction]Ordered By: Andrei Wiseman on 08-05-2022 Hematocrit (Bld) [Volume fraction] 42.1 % 34.0-46.4 [facility] Hemoglobin [Mass/volume] in BloodOrdered By: Andrei Wiseman on 08-05-2022 Hemoglobin (Bld) [Mass/Vol] 13.9 g/dL 11.8-15.4 [facility] Leukocytes [#/volume] correc henry for nucleated erythrocytes in Blood by Automated counOrdered By: Andrei Wiseman on 08-05-2022 WBC corrected for nucl RBC Auto (Bld) [#/Vol] 5.9 10*3/uL 3.8-11.6 [facility] Lymphocytes Auto (Bld) [#/Vo l]Ordered By: Andrei Wiseman on 08-05-2022 Lymphocytes (Bld) [#/Vol] 1.7 10*3/uL 1.00-4.8 [facility] Lymphocytes/100 WBC Auto (Bl d)Ordered By: Andrei Wiseman on 08-05-2022 Lymphocytes/100 WBC (Bld) 28.9 % . [facility] MCH Auto (RBC) [Entitic mass ]Ordered By: Andrei Wiseman on 08-05-2022 MCH (RBC) [Entitic mass] 29.1 pg 24.7-34.3 [facility] MCHC Auto (RBC) [Mass/Vol]Or dered By: Andrei Wiseman on 08-05-2022 MCHC (RBC) [Mass/Vol] 33.1 g/dL 32.0-35.0 [facility] MCV Auto (RBC) [Entitic vol] Ordered By: Andrei Wiseman on 08-05-2022 MCV (RBC) [Entitic vol] 87.8 fL 80-100 [facility] Monocytes Auto (Bld) [#/Vol] Ordered By: Andrei Wiseman on 08-05-2022 Monocytes (Bld) [#/Vol] 0.6 10*3/uL 0.0-0.8 [facility] Monocytes/100 WBC Auto (Bld) Ordered By: Andrei Wiseman on 08-05-2022 Monocytes/100 WBC (Bld) 9.8 % . [facility] Neutrophils Auto (Bld) [#/Vo l]Ordered By: Andrei Wiseman on 08-05-2022 Neutrophils (Bld) [#/Vol] 3.2 10*3/uL 1.8-7.7 [facility] Neutrophils/100 WBC Auto (Bl d)Ordered By: Andrei Wiseman on 08-05-2022 Neutrophils/100 WBC (Bld) 54.1 % . [facility] No Panel InformationOrdered By: Andrei Wiseman on 08-05-2022 Estimated GFR (CKD-EPI) 34.508 mL/Min [facility] Pharmacy Creatinine Clearance (Chem N/A [facility] Nucleated erythrocytes [Pres ence] in Blood by Automated countOrdered By: Andrei Wiseman on 08-05-2022 Nucleated RBC Auto Ql (Bld) 0.1 /100{WBC} 0-0.5 [facility] Platelet mean volume Auto (B ld) [Entitic vol]Ordered By: Andrei Wiseman on 08-05-2022 Platelet mean volume (Bld) [Entitic vol] 8.5 fL 6.3-10.7 [facility] Platelets Auto (Bld) [#/Vol] Ordered By: Andrei Wiseman on 08-05-2022 Platelets (Bld) [#/Vol] 154 10*3/uL 150-450 [facility] Potassium [Moles/volume] in Serum or PlasmaOrdered By: Andrei Wiseman on 08-05-2022 Potassium [Moles/Vol] 4.5 mmol/L 3.5-5.1 [facility] Protein [Mass/volume] in Ser um or PlasmaOrdered By: Andrei Wiseman on 08-05-2022 Protein [Mass/Vol] 6.4 g/dL 6.4-8.9 [facility] RBC Auto (Bld) [#/Vol]Ordere d By: Andrei Wiseman on 08-05-2022 RBC (Bld) [#/Vol] 4.80 10*6/uL 3.60-5.[address] [facility] Radiologyon 08-05-2022 XR Chest 2 Views Normal -[facility] [address] DO Work Phone: Serum or plasma albumin/glob ulin mass ratioOrdered By: Andrei Wiseman on 08-05-2022 Albumin/Globulin [Mass ratio] 1.7 {ratio} [facility] Serum or plasma anion gap de terminationOrdered By: Andrei Wiseman on 08-05-2022 Anion gap [Moles/Vol] 11.0 mmol/L 6.0-15.0 [facility] Serum or plasma high density lipoprotein (HDL) cholesterol measurementOrdered By: Andrei Wiseman on 08-05-2022 Cholesterol in HDL [Mass/Vol] 49 mg/dL 23-92 [facility] Comment on above: HDL CHOL ATP-III CLA SSIFICATION Cardiovascular RiskHDL > or equal to 60 mg/dL LOWHDL < 40 mg/dL HIGH Serum or plasma total choles terol/high density lipoprotein (HDL) cholesterol mass ratOrdered By: Andrei Wiseman on 08-05-2022 Cholesterol.total/Chol esterol in HDL [Mass ratio] 3.2 {ratio} <5.0 [facility] Sodium [Moles/volume] in Ser um or PlasmaOrdered By: Andrei Wiseman on 08-05-2022 Sodium [Moles/Vol] 142 mmol/L 136-145 [facility] Thyrotropin [Units/volume] i n Serum or PlasmaOrdered By: Andrei Wiseman on 08-05-2022 TSH Qn 1.66 m[IU]/L 0.45-5.33 [facility] Thyroxine (T4) free [Mass/vo lume] in Serum or PlasmaOrdered By: Andrei Wiseman on 08-05-2022 Free T4 [Mass/Vol] 1.92 ng/dL 0.61-1.12 [facility] Triglyceride [Mass/volume] i n Serum or PlasmaOrdered By: Andrei Wiseman on 08-05-2022 Triglyceride [Mass/Vol] 113 mg/dL 0-149 [facility] Comment on above: TRIG ATP III CLASSIF ICATIONTRIG less than 150 mg/dL NormalTRIG 150-199 mg/dL Borderline highTRIG 200-500 mg/dL High TRIG greater than 500 mg/dL Very highStandard traceable to the Center for Disease Conrtrol and Prevention (CDC) test method. Urea nitrogen [Mass/volume] in Serum or PlasmaOrdered By: Andrei Wiseman on 08-05-2022 Urea nitrogen [Mass/Vol] 26 mg/dL 7-25 [facility] WBC Auto (Bld) [#/Vol]Ordere d By: Andrei Wiseman on 08-05-2022 WBC (Bld) [#/Vol] 5.9 10*3/uL 3.8-11.6 [facility] Tobacco Screening.on 023 Adult depression screening assessment No [facility] [employer] [address] 250 DO Work Phone: Fall risk assessment a) No falls within the last year [facility] Tonny cevallos 250 DO Work Phone: Tobacco use status CPHS b) No [facility] Tonny cevallos 250 DO Work Phone: Aspartate aminotransferase [ Enzymatic activity/volume] in Serum or PlasmaOrdered By: Jose Martin Jones on 04-27-2022 AST [Catalytic activity/Vol] 30 U/L 13-39 [facility] Calcium [Mass/volume] in Ser um or PlasmaOrdered By: Jose Martin Jones on 04-27-2022 Calcium [Mass/Vol] 9.5 mg/dL 8.6-10.3 [facility] Carbon dioxide, total [Moles /volume] in Serum or PlasmaOrdered By: Jose Martin Jones on 04-27-2022 CO2 [Moles/Vol] 26.1 mmol/L 21.0-31.[address] [facility] Chloride [Moles/volume] in S josesito or PlasmaOrdered By: Jose Martin Jones on 04-27-2022 Chloride [Moles/Vol] 105 mmol/L 98-107 [facility] Creatinine [Mass/volume] in Serum or PlasmaOrdered By: JoseM artin Jones on 04-27-2022 Creatinine [Mass/Vol] 1.68 mg/dL 0.60-1.20 [facility] Glucose [Mass/volume] in Ser um or PlasmaOrdered By: Jose Martin Jones on 04-27-2022 Glucose [Mass/Vol] 93 mg/dL 74-109 [facility] Comment on above: ADA recommended refe rence rangeRandom Glucose Reference Range is dependent on time and content of last meal. Glucose of more than 200 mg/dL in a nonstressed, ambulatory subject supports the diagnosis of Diabetes Mellitus. Laboratory - Chemistry and C hemistry - challengeOrdered By: Jose Martin Jones on 04-27-2022 GFR/1.73 sq M.predicted MDRD (S/P/Bld) [Vol rate/Area] 31.328 mL/min/{1.73_m2} [facility] No Panel InformationOrdered By: Jose Martin Jones on 04-27-2022 Pharmacy Creatinine Clearance (Chem N/A [facility] No Panel Informationon 04-27 30\S\30 Normal 13-39 -[facility] [address] DO Work Phone: 31.328\S\31.328 Normal [facility] 250 DO Work Phone: 15.4\S\15.4 above high threshold 6.0-15.0 -[facility] 250 DO Work Phone: 9.5\S\9.5 Normal 8.6-10.3 [facility] [address] DO Work Phone: 26.1\S\26.1 Normal 21.0-31.0 [facility] [address] DO Work Phone: [phone] 105\S\105 Normal 98-107 -[facility] 250 DO Work Phone: 4.5\S\4.5 Normal 3.5-5.1 [facility] [address] DO Work Phone: [phone] 142\S\142 Normal 136-145 [facility] 250 DO Work Phone: 1.68\S\1.68 above high threshold 0.60-1.20 [facility] [address] DO Work Phone: 32\S\32 above high threshold 7-25 -[facility] 250 DO Work Phone: 93\S\93 Normal 74-109 [facility] [address] DO Work Phone: Comment on above: Random Glucose Refer ence Range is dependent on time and content of last meal. Glucose of more than 200 mg/dL in a nonstressed, ambulatory subject supports the diagnosis of Diabetes Mellitus. ADA recommended reference range 1.23\S\1.23 Normal 0.45-5.33 [facility] [address] 250 DO Work Phone: Comment on above: PERFORMED BY:[facility] [place], [place] [id number] MEDICAL DIRECTORROWENA LIPSCOMB M.D. Potassium [Moles/volume] in Serum or PlasmaOrdered By: Jose Martin Jones on 04-27-2022 Potassium [Moles/Vol] 4.5 mmol/L 3.5-5.1 [facility] Radiologyon 04-27-2022 XR Chest 2 Views Normal [facility] 250 DO Work Phone: Serum or plasma anion gap de terminationOrdered By: Jose Martin Jones on 04-27-2022 Anion gap [Moles/Vol] 15.4 mmol/L 6.0-15.0 [facility] Sodium [Moles/volume] in Ser um or PlasmaOrdered By: Jose Martin Jones on 04-27-2022 Sodium [Moles/Vol] 142 mmol/L 136-145 [facility] Thyrotropin [Units/volume] i n Serum or PlasmaOrdered By: Jose Martin Jones on 04-27-2022 TSH Qn 1.23 m[IU]/L 0.45-5.33 [facility] Urea nitrogen [Mass/volume] in Serum or PlasmaOrdered By: Jose Martin Jones on 04-27-2022 Urea nitrogen [Mass/Vol] 32 mg/dL 7-25 [facility] Creatinine and Glomerular fi ltration rate.predicted panel (S/P/Bld)Ordered By: Jose Martin Jones on 01-21-2022 Creatinine [Mass/Vol] 1.34 mg/dL 0.44-1.03 [facility] Estimated glomerular filtrat ion rate (GFR) non- AmericanOrdered By: Jose Martin Jones on 01-21-2022 GFR/1.73 sq M.predicted among non-blacks MDRD (S/P/Bld) [Vol rate/Area] 38 mL/Min [facility] No Panel InformationOrdered By: Jose Martin Jones on 01-21-2022 Estimated GFR () 47 mL/Min [facility] Comment on above: GFR estimated refere nce range: According to KDOQI guidelines, <60 ml/min/1.73m2 is sufficient to diagnose a patient with chronic kidney disease. Pharmacy Creatinine Clearance (Chem N/A [facility] No Panel Informationon 01-21 1.19\S\1.19 Normal 0.45-5.33 [facility] 250 DO Work Phone: Comment on above: PERFORMED BY:[place] [address] [place], [place] [phone] MEDICAL DIRECTORROWENA LIPSCOMB M.D. 22\S\22 Normal 10-42 [facility] [address] 250 DO Work Phone: 10.7\S\10.7 Normal 6.0-15.0 [facility] 250 DO Work Phone: [phone] 8.7\S\8.7 Normal 8.2-10.2 [facility] 250 DO Work Phone: 25.5\S\25.5 Normal 22.0-30.0 [facility] [place] 250 DO Work Phone: 108\S\108 Normal 95-114 [facility] [place] [facility] 250 DO Work Phone: [phone] 4.2\S\4.2 Normal 3.5-5.1 [facility] 250 DO Work Phone: 140\S\140 Normal 136-146 [facility] 250 DO Work Phone: 47\S\47 Normal [facility] 250 DO Work Phone: Comment on above: GFR estimated refere nce range: According to KDOQI guidelines, <60 ml/min/1.73m2 is sufficient to diagnose a patient with chronic kidney disease. 38\S\38 Normal [facility] 250 DO Work Phone: 1.34\S\1.34 above high threshold 0.44-1.03 [facility] DO Work Phone: 16\S\16 Normal 9-23 [facility] DO Work Phone: 67\S\67 below low threshold 70-100 [facility] DO Work Phone: Comment on above: [...] Weight Tips; Status:Complete - Retrospective Authorization; Done: [id number] Some eating tips that can help you lose weight.; Status:Complete - Retrospective Authorization; Done: [id number] Paroxysmal atrial fibrillation IO EKG Electrocardiogram- 12 Lead; Status:Complete; Done: [id number] SocHx: Never a smoker Tobacco Use Screening; Status:Complete; Done: [id number] Unlinked Stop: Metoprolol Tartrate 100 MG Oral [...] negative for complaint. Vitals Vital Signs Recorded: [id number] 02:17PM Heart Rate47, Apical Zctffchi900, RUE, Sitting Kdhoftcgd42, (more content not included)... Normal [facility] Radiologyon 01-21-2022 XR Chest 2 Views Normal -[facility] 250 DO Work Phone: Serum or plasma anion gap de terminationOrdered By: Jose Martin Jones on 01-21-2022 Anion gap [Moles/Vol] 10.7 mmol/L 6.0-15.0 [facility] Serum or plasma aspartate am inotransferase measurement (enzymatic activity/volume)Ordered By: Jose Martin Jones on 01-21-2022 AST [Catalytic activity/Vol] 22 U/L 10- [facility] Serum or plasma calcium michael urement (mass/volume)Ordered By: Jose Martin Jones on 01-21-2022 Calcium [Mass/Vol] 8.7 mg/dL 8.2-10.2 [facility] Serum or plasma chloride diane surement (moles/volume)Ordered By: Jose Martin Jones on 01-21-2022 Chloride [Moles/Vol] 108 mmol/L 95-114 [facility] Serum or plasma glucose michael urement (mass/volume)Ordered By: Jose Martin Jones on 01-21-2022 Glucose [Mass/Vol] 67 mg/dL 70-100 [facility] Comment on above: ADA recommended refe rence rangeRandom Glucose Reference Range is dependent on time and content of last meal. Glucose of more than 200 mg/dL in a nonstressed, ambulatory subject supports the diagnosis of Diabetes Mellitus. Serum or plasma potassium me asurement (moles/volume)Ordered By: Jose Martin Jones on 01-21-2022 Potassium [Moles/Vol] 4.2 mmol/L 3.5-5.1 [facility] Serum or plasma sodium measu rement (moles/volume)Ordered By: Jose Martin Jones on 01-21-2022 Sodium [Moles/Vol] 140 mmol/L 136-146 [facility] Serum or plasma total carbon dioxide measurement (moles/volume)Ordered By: Jose Martin Jones on 01-21-2022 CO2 [Moles/Vol] 25.5 mmol/L 22.0-30.[address] [facility] Serum or plasma urea nitroge n measurement (mass/volume)Ordered By: Jose Martin Jones on 01-21-2022 Urea nitrogen [Mass/Vol] 16 mg/dL 9-23 [facility] TSH DL <= 0.005 mIU/L QnOrde red By: Jose Martin Jones on 01-21-2022 TSH Qn 1.19 m[IU]/L 0.45-5.33 [facility] Tobacco Screening.on 022 Fall risk assessment a) No falls within the last year -[facility] [employer] [address] 250 DO Work Phone: Tobacco use status CPHS b) No -[facility] [facility] 250 DO Work Phone: Cardiovasc Arrhythmia Result son 11-10-2021 Cardiovasc Arrhythmia Results Reason For Visit Reason for Visit: Holter Monitor: EDUARDO is here for the application of a 24 hour Holter monitor. Ordering Physician: Delilah Flores NP Diagnosis: PAF, SOB [facility] equipment agreement signed. EDUARDO understands monitor is to be returned on: 11/11/21 Monitor number [id number] applied. Procedure Holter monitor returned with diary [...] Nov 13 2021 5:17PM EST (Author) Normal [employer] Office Visit (Cardiology)on 11-03-2021 Follow-up visit Diagnoses/Problems [...] in adult Healthy Weight Tips; Status:Complete; Done: [id number] Paroxysmal atrial fibrillation IO Holter Monitor up to 48 Hrs; Status:Complete; Done: [id number] Patient Instructions Please bring all medicines, vitamins, [...] is much easier'. She ambulated in from without complaints. Prior SANCHEZ with significant improvement [...] (Z86.79) History (more content not included)... Normal [employer] Tobacco Screening.on 022 Fall risk assessment a) No falls within the last year [facility] 250 DO Work Phone: Tobacco use status [facility] b) No [facility] 250 DO Work Phone: [facility] CARDIAC STRESS/REST INJE CTIONon 09-21-2021 [facility] CARDIAC STRESS/REST INJECTION Patient Name: EDUARDO HOWARD STUDY: MYOCARDIAL PERFUSION STRESS TEST WITH LEXISCAN Performing facility: [facility], [address] [place] [address], [address], [place] [address] [facility] Provider: Delilah Turner RN, BAND SAW MARKER PCP: Dr. Shelia Wiseman Supervising provider: Delilah Turner RN, BAND SAW MARKER INDICATION: A-fib Cardiomyopathy HISTORY: Gender: F; Age: 76 y/o ; Height: 0 cm; Weight: 0 kg. CAD; Family HX CAD; HTN; Arrhythmias; Denies smoking. COMPARISON: No comparison. ACCESSION NUMBER(S): [id number]; [id number]; [id number] ORDERING CLINICIAN: DELILAH TURNER TECHNIQUE: TWO DAY [...] Electronically signed by: YVONNE HAAS MD Normal [facility] No Panel Informationon 09-21 Normal [facility] 250 DO Work Phone: Office Visit (Cardiology)on 09-07-2021 Follow-up visit Diagnoses/Problems Assessed Cardiomyopathy (425.4) (I42.9) HFrEF 30-35% August 2021 Echo (2013 45% - cath trivial disease) FC IIb Stage C GDMT: cozaabby lopressor add spironolactone today Paroxysmal atrial fibrillation [...] in adult Healthy Weight Tips; Status:Complete; Done: [id number] Unlinked Stop: Potassium Chloride [facility] 20 [...] contact the office if new symptoms arise. 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 Normal [employer] Tobacco Screening.on 022 Adult depression screening assessment No [facility] [employer]cierge DO Work Phone: Fall risk assessment b) One or more fall s in the last year [facility] [place] 250 DO Work Phone: Tobacco use status [facility] b) No [facility] [employer] 250 DO Work Phone: Echocardiogramon 08-31-[address], [address] [place] [address] TRANSTHORACIC ECHOCARDIOGRAM REPORT Patient Name: EDUARDO Desai Physician: [id number] Jose Martin HOWARD MD Study Date: 08/31/2021 Referring Robel JONES Physician: MRN/PID: [id number] PCP: Andrei Wiseman Accession/Order#: [id number] [facility] Location: [place] Date of : 1945 Fellow: Gender: F Nurse: Misti Lopez RN Admit Date: International Recruiter: Taty Allen RDCS, RVT Height: 170.18 cm CC Report to: Weight: 112.95 kg Study Type: Echocardiogram BSA: 2.22 m2 Blood Pressure: 144 /88 mmHg Diagnosis/ICD: I42.9-Cardiomyopathy, unspecified; X51-Cmabnamhv (primary) hypertension; I48.0-Paroxysmal atrial fibrillation Indication: Family History of CAD, Obesity Procedure/CPT: Echo Complete w Full Doppler-06035 Study Detail: The following Echo studies were [...] 0.5 m/s (0.6-0.9m/s) PV Max P.2 mmHg [id number] Jose Martin Jones MD Electronically signed on 08/31/2021 at 6:01:31 PM Final Normal [facility] Falls Screening (Age 18+)on 08-31-2021 Fall risk assessment a) No falls within the last year [facility] [address] [place] Work [...] she has been getting her care in [facility] from the [place] [facility] Recently, her computer drafter became ill and she has not had any continuity of care ever since. She had been plagued by paroxysmal atrial fibrillation and it appears that the attending computer drafter placed her on flecainide. This would lead [...] MG TABSTAKE (more content not included)... Normal [employer] Tobacco Screening.on 022 Adult depression screening assessment No [facility] Symphony Concierge DO Work Phone: Fall risk assessment a) No falls within the last year [facility] Symphony Concierge DO Work Phone: Tobacco use status [facility] b) No [facility] Guomai 250 DO Work Phone: Adult depression screening assessment No [facility] Guomai 250 DO Work Phone: Fall risk assessment a) No falls within the last year [facility] Guomai 250 DO Work Phone: Tobacco use status [facility] b) No [facility] Guomai 250 DO Work Phone: PROTIMEon 12-04-2020 INR Coag (PPP) [Relative time] 0.98 {INR} Normal [facility] Comment on above: Performed By: #### P TT, PT #### [facility] [address] [address] [address] Soniya Qureshi INR GUIDELINES SEE BELOW Normal [facility] Comment on above: Result Comment: JAVED RED INR: 2.0 - 3.0 CONDITIONS NOT LISTED BELOW 2.5 - 3.5 FOR PROSTHETIC HEART VALVE REPLACEMENT 2.5 - 3.5 RECURRENT THROMBOSIS Performed By: #### P TT, PT #### [facility] [address] [address] [address] Soniya Qureshi PT Coag (PPP) [Time] 10.6 s Normal 9.0-11.6 [facility] Comment on above: Performed By: #### P TT, PT #### [facility] [address] [address] [address] Soniya Qureshi PTTon 12-04-2020 aPTT Coag (Bld) [Time] 25.4 s Normal 22.3-36.[address] [facility] Comment on above: Performed By: #### P TT, PT #### [facility] [address] [address] [address] Soniya Qureshi XR KUB 1 VIEWon [...] MARGARET ROMAN Date: 2020-12-04 07:13 Normal [facility] Covid-19 PCR (CVDTBH)on 11-08 SARS-CoV-2 (COVID-19) RNA HÉCTOR+probe Ql (Unsp spec) Not detected Normal NOT DETECTED [facility] Comment on above: Result Comment: This test is not yet approved or cleared by the [place] FDA. When there are no FDA-approved or cleared tests available, and other criteria are met, FDA can make tests available under an emergency access mechanism called an Emergency Use Authorization (EUA). The EUA for this test is supported by the [place] of Health and Human Service's (HHS's) declaration [...] consistent with SARS-CoV-2. Performed By: #### [facility] #### [facility] [address] [place] [address] Dr. Soniya Qureshi XR KUB 1 VIEWon [...] ANDREI MERCADO Date: 2020-11-13 07:52 Normal [facility]19 [facility]on SARS-CoV-2 (COVID-19) RNA HÉCTOR+probe Ql (Unsp spec) Not detected Normal NOT DETECTED [facility] Comment on above: Result Comment: This test is not yet approved or cleared by the [place] FDA. When there are no FDA-approved or cleared tests available, and other criteria are met, FDA can make tests available under an emergency access mechanism called an Emergency Use Authorization (EUA). The EUA for this test is supported by the [place] of Health and Human Service's (HHS's) declaration [...] SARS-CoV-2. Performed By: #### C VDTBH #### [facility] [address] [place] [address] Dr. Soniya Qureshi PROTIMEon 11-06-2020 INR Coag (PPP) [Relative time] 1.07 {INR} Normal [facility] Comment on above: Performed By: #### P T, PTT #### [facility] [address] [place] [address] Dr. Soniya Qureshi INR GUIDELINES SEE BELOW Normal [facility] Comment on above: Result Comment: JAVED RED INR: 2.0 - 3.0 CONDITIONS NOT LISTED BELOW 2.5 - 3.5 FOR PROSTHETIC HEART VALVE REPLACEMENT 2.5 - 3.5 RECURRENT THROMBOSIS Performed By: #### P T, PTT #### [facility] [address] [place] [address] Dr. Soniya Qureshi PT Coag (PPP) [Time] 11.5 s Normal 9.0-11.6 [facility] Comment on above: Performed By: #### P T, PTT #### [facility] [address] [place] [address] Dr. Soniya Qureshi PTTon 11-06-2020 aPTT Coag (Bld) [Time] 27.4 s Normal 22.3-36.2 [facility] Comment on above: Performed By: #### P T, PTT #### [facility] [address] [place] [address] Dr. Soniya Qureshi CNPPalak 11-04-2020 CNPN Telephone ([facility]) -- HERNANDO HOWARD ([id number]) 1945 F Date Time Provider Department 11/04/20 [...] Reason for Visit: Request Outside Medical Records [3579] Prescriptions as of 11/04/2020 - metoprolol tartrate, [...] Encounter Status:Closed by RAINA DIAZ on 11/04/20 [facility] CNOVSPon 10-07-2020 CNOVSP Visit (SP) Office ([facility]) -- HERNANDO HOWARD ([id number]) 1945 F Date Time Provider Department 10/07/20 11:15 AM PHIL BROOKS During your visit today, we recorded the following information about you: Temperature Pulse Respiration Blood pressure 96.7 degrees 75/minute 16/minute 160/87 Weight Height 115.6 kg 1.689 m Phil Brooks MD 10/07/2020 10:56 PM Signed PATIENT NAME: Hernando Howard CLINIC NO.: [id number] ATTENDING PHYSICIAN: Phil Brooks MD DATE OF [...] General a (more content not included)... Normal [facility] XR KUB 1 VIEWon 09-15-2020 XR [...] ROMAN Date: 2020-09-15 14:42 Normal [facility] Vital Signs Date Time Vital Sign Value Performing Clinician Facility 10-02-2024 13:040 Body height 167.[address] 10-02-2024 [id number] Body mass index (BMI) [Ratio] 32.28 kg/m2 [address] 10-02-2024 13:040 Body weight 90.[address] 10-02-2024 13:28-040 Diastolic blood pressure 82 mm[Hg] [address] 10-02-2024 13:040 Systolic blood pressure 136 mm[Hg] [address] 08-08-2024 13:040 Body height 163.8 cm Jerome Quick MD Work Phone: [facility] 08-08-2024 13:07-0400 Body mass index (BMI) [Ratio] 33.63 kg/m2 Jerome Quick MD Work Phone: [facility] 08-08-2024 13:07-0400 Body weight 90.27 kg Jerome Quick MD Work Phone: [facility] 08-08-2024 13:07-0400 Diastolic blood pressure 80 mm[Hg] Jerome Quick MD Work Phone: [facility] 08-08-2024 13:07-0400 Heart rate 72 /min Jerome Quick MD Work Phone: [facility] 08-08-2024 13:07-0400 Respiratory rate 18 /min Jerome Quick MD Work Phone: [facility] 08-08-2024 13:07-0400 SaO2% (BldA) [Mass fraction] 98 % Jerome Quick MD Work Phone: [facility] 08-08-2024 13:07-0400 Systolic blood pressure 108 mm[Hg] Jerome Quick MD Work Phone: [facility] 08-01-2024 11:06-0400 Body height 167.6 cm [facility] 08-01-2024 11:06-0400 Body mass index (BMI) [Ratio] 32.35 kg/m2 [facility] 08-01-2024 11:06-0400 Body weight 90.9 kg [facility] 08-01-2024 11:06-0400 Diastolic blood pressure 86 mm[Hg] [facility] 08-01-2024 11:06-0400 Heart rate 75 /min [facility] 08-01-2024 11:06-0400 Systolic blood pressure 142 mm[Hg] Raymundo Santa [facility] 07-26-2024 15:47-0400 Body mass index (BMI) [Ratio] 32.6 kg/m2 Jerome Quick MD Work Phone: [facility] 07-26-2024 15:47-0400 Body temperature 97.9 [degF] Jerome Quick MD Work Phone: [facility] 07-26-2024 15:47-0400 Body weight 91.63 kg Jerome Quick MD Work Phone: [facility] 07-26-2024 15:47-0400 Diastolic blood pressure 60 mm[Hg] Jerome Quick MD Work Phone: [facility] 07-26-2024 15:47-0400 Heart rate 70 /min Jerome Quick MD Work Phone: [facility] 07-26-2024 15:47-0400 Respiratory rate 20 /min Jerome Quick MD Work Phone: [facility] 07-26-2024 15:47-0400 SaO2% (BldA) [Mass fraction] 95 % Jerome Quick MD Work Phone: [facility] 07-26-2024 15:47-0400 Systolic blood pressure 110 mm[Hg] Jerome Quick MD Work Phone: [facility] 07-25-2024 10:24-0400 Body height 167.6 cm Yvonne Haas MD Work Phone: [facility] 07-25-2024 10:24-0400 Body mass index (BMI) [Ratio] 32.73 kg/m2 Yvonne Haas MD Work Phone: [facility] 07-25-2024 10:24-0400 Body weight 91.99 kg Yvonne Haas MD Work Phone: [facility] 07-25-2024 10:24-0400 Diastolic blood pressure 76 mm[Hg] Yvonne Haas MD Work Phone: [facility] 07-25-2024 10:24-0400 Heart rate 76 /min Yvonne Haas MD Work Phone: [facility] 07-25-2024 10:24-0400 Systolic blood pressure 122 mm[Hg] Yvonne Haas MD Work Phone: [facility] 12-14-2023 12:21-0500 Body height 167.[address] 12-14-2023 12:21-0500 Body mass index (BMI) [Ratio] 33.73 kg/m2 [address] 12-14-2023 12:21-0500 Body weight 94.[address] 12-14-2023 12:21-0500 Diastolic blood pressure 84 mm[Hg] [address] 12-14-2023 12:21-0500 Systolic blood pressure 130 mm[Hg] [address] 12-13-2023 10:37-0500 Diastolic blood pressure 75 mm[Hg] Yvonne Haas MD Work Phone: [facility] 12-13-2023 10:37-0500 Systolic blood pressure 130 mm[Hg] Yvonne Haas MD Work Phone: [facility] 12-13-2023 09:55-0500 Body height 167.6 cm Yvonne Haas MD Work Phone: [facility] 12-13-2023 09:55-0500 Body mass index (BMI) [Ratio] 33.73 kg/m2 Yvonne Haas MD Work Phone: [facility] 12-13-2023 09:55-0500 Body weight 94.8 kg Yvonne Haas MD Work Phone: [facility] 12-13-2023 09:55-0500 Heart rate 87 /min Yvonne Haas MD Work Phone: [facility] 12-01-2023 16:49-0400 Diastolic blood pressure 64 mm[Hg] MD Andrei Wiseman Work Phone: [facility] 12-01-2023 16:49-0400 Heart rate 62 /min MD Andrei Wiseman Work Phone: [facility] 12-01-2023 16:49-0400 Respiratory rate 22 /min MD Andrei Wiseman Work Phone: [facility] 12-01-2023 16:49-0400 SaO2% (BldA) [Mass fraction] 95 % MD Andrei Wiseman Work Phone: [facility] 12-01-2023 16:49-0400 Systolic blood pressure 139 mm[Hg] MD Andrei Wiseman Work Phone: [facility] 12-01-2023 13:02-0400 Body height 167.64 cm MD Andrei Wiseman Work Phone: [facility] 12-01-2023 13:02-0400 Body temperature 97.9 [degF] MD Andrei Wiseman Work Phone: [facility] 12-01-2023 13:02-0400 Body weight 94 kg MD Andrei Wiseman Work Phone: [facility] 09-16-2023 10:18-0400 Blood Pressure Location Allyson SALEEM [facility] 09-16-2023 10:18-0400 Diastolic blood pressure 78 mm[Hg] Allyson SALEEM [facility] 09-16-2023 10:18-0400 Heart rate 80 /min Allyson SALEEM [facility] 09-16-2023 10:18-0400 Respiratory rate 16 /min Allyson SALEEM [facility] 09-16-2023 10:18-0400 Systolic blood pressure 136 mm[Hg] Allyson SALEEM [facility] 08-04-2023 09:31-0400 Body height 167.6 cm Andrei Wiseman MD Work Phone: [facility] 08-04-2023 09:31-0400 Body mass index (BMI) [Ratio] 33.25 kg/m2 Andrei Wiseman MD Work Phone: [facility] 08-04-2023 09:31-0400 Body temperature 97.59 [degF] Andrei Wiseman MD Work Phone: [facility] 08-04-2023 09:31-0400 Body weight 93.44 kg Andrei Wiseman MD Work Phone: [facility] 08-04-2023 09:31-0400 Diastolic blood pressure 80 mm[Hg] Andrei Wiseman MD Work Phone: [facility] 08-04-2023 09:31-0400 Heart rate 68 /min Andrei Wiseman MD Work Phone: [facility] 08-04-2023 09:31-0400 Respiratory rate 16 /min Andrei Wiseman MD Work Phone: [facility] 08-04-2023 09:31-0400 Systolic blood pressure 128 mm[Hg] Andrei Wiseman MD Work Phone: [facility] 03-01-2023 12:13-0500 Body height 167.6 cm Delilah Turner [employer]ILD[employer] Work Phone: [facility] 03-01-2023 12:13-0500 Body mass index (BMI) [Ratio] 33.73 kg/m2 Delilah Turner BUILDING INSPECTOR[employer] Work Phone: [facility] 03-01-2023 12:13-0500 Body weight 94.8 kg Delilah Turner BUILDING INSPECTOR[employer] Work Phone: [facility] 03-01-2023 12:13-0500 Diastolic blood pressure 70 mm[Hg] Delilah Turner BUILDING INSPECTOR[employer] Work Phone: [facility] 03-01-2023 12:13-0500 Heart rate 64 /min Delilah Turner BUILDING INSPECTOR[employer] Work Phone: [facility] 03-01-2023 12:13-0500 Systolic blood pressure 108 mm[Hg] Delilah Turner BUILDING INSPECTOR[employer] Work Phone: [facility] 02-21-2023 10:19-0500 Body height 167.6 cm Delilah Turner BUILDING INSPECTOR[employer] Work Phone: [facility] 02-21-2023 10:19-0500 Body mass index (BMI) [Ratio] 33.89 kg/m2 Delilah Turner BUILDING INSPECTOR[employer] Work Phone: [facility] 02-21-2023 10:19-0500 Body weight 95.25 kg Delilah Turner BUILDING INSPECTOR[employer] Work Phone: [facility] 02-21-2023 10:19-0500 Diastolic blood pressure 84 mm[Hg] Delilah Turner BUILDING INSPECTOR[employer] Work Phone: [facility] 02-21-2023 10:19-0500 Heart rate 31 /min Delilah Turner BUILDING INSPECTOR[employer] Work Phone: [facility] 02-21-2023 10:19-0500 Systolic blood pressure 128 mm[Hg] Delilah Turner BUILDING INSPECTOR[employer]ER Work Phone: [facility] 02-01-2023 09:40-0500 Body height 167.6 cm Andrei Wiseman MD Work Phone: [facility] 02-01-2023 09:40-0500 Body mass index (BMI) [Ratio] 34.3 kg/m2 Andrei Wiseman MD Work Phone: [facility] 02-01-2023 09:40-0500 Body weight 96.39 kg Andrei Wiseman MD Work Phone: [facility] 02-01-2023 09:40-0500 Diastolic blood pressure 84 mm[Hg] Andrei Wiseman MD Work Phone: [facility] 02-01-2023 09:40-0500 Heart rate 60 /min Andrei Wiseman MD Work Phone: [facility] 02-01-2023 09:40-0500 Respiratory rate 16 /min Andrei Wiseman MD Work Phone: [facility] 02-01-2023 09:40-0500 Systolic blood pressure 122 mm[Hg] Andrei Wiseman MD Work Phone: [facility] 01-21-2023 10:43-0500 Body height 167.[address] 01-21-2023 10:43-0500 Body mass index (BMI) [Ratio] 34.54 kg/m2 [address] 01-21-2023 10:43-0500 Body weight 97.[address] 01-21-2023 10:43-0500 Diastolic blood pressure 84 mm[Hg] [address] 01-21-2023 10:43-0500 Systolic blood pressure 140 mm[Hg] [address] 01-17-2023 09:27-0500 Body height 167.6 cm Delilah Turner BUILDING INSPECTOR[employer] Work Phone: [facility] 01-17-2023 09:27-0500 Body mass index (BMI) [Ratio] 34.54 kg/m2 Delilah Turner BUILDING INSPECTOR[employer] Work Phone: [facility] 01-17-2023 09:27-0500 Body weight 97.07 kg Delilah Turner BUILDING INSPECTOR[employer] Work Phone: [facility] 01-17-2023 09:27-0500 Diastolic blood pressure 80 mm[Hg] Delilah Turner BUILDING INSPECTOR[employer] Work Phone: [facility] 01-17-2023 09:27-0500 Heart rate 46 /min Delilah Turner BUILDING INSPECTOR[employer] Work Phone: [facility] 01-17-2023 09:27-0500 Systolic blood pressure 142 mm[Hg] eDlilah Turner BUILDING INSPECTOR[employer] Work Phone: [facility] 09-13-2022 10:27-0400 Blood Pressure Location Allyson SALEEM [facility] 09-13-2022 10:27-0400 Diastolic blood pressure 80 mm[Hg] Alylson SALEEM [facility] 09-13-2022 10:27-0400 Heart rate 78 /min Allyson SALEEM [facility] 09-13-2022 10:27-0400 Respiratory rate 16 /min Allyson SALEEM [facility] 09-13-2022 10:27-0400 Systolic blood pressure 130 mm[Hg] Allyson SALEEM [facility] 07-19-2022 09:10-0400 Body height 167.64 cm Andrei Wiseman Work Phone: [facility] 250 DO Work Phone: 07-19-2022 09:10-0400 Body mass index (BMI) [Ratio] 34.86 kg/m2 Andrei Formanrance Work Phone: [facility] DO Work Phone: 07-19-2022 09:10-0400 Body surface area Derived from formula 2.07 m2 Andrei Wiseman Work Phone: [facility] 250 DO Work Phone: 07-19-2022 09:10-0400 Body weight 97.98 kg Andrei Wiseman Work Phone: [facility] 250 DO Work Phone: 07-19-2022 09:10-0400 Diastolic blood pressure 70 mm[Hg] Andrei T Defrance Work Phone: [facility] 250 DO Work Phone: 07-19-2022 09:10-0400 Heart rate 45 /min Andrei T Defrance Work Phone: [facility] 250 DO Work Phone: 07-19-2022 09:10-0400 Systolic blood pressure 128 mm[Hg] Andrei T Defrance Work Phone: [facility] 250 DO Work Phone: 01-21-2022 14:17-0500 Body height 167.64 cm Andrei T Defrance Work Phone: [facility] 250 DO Work Phone: 01-21-2022 14:17-0500 Body mass index (BMI) [Ratio] 38.41 kg/m2 Andrei T Defrance Work Phone: [facility] 250 DO Work Phone: 01-21-2022 14:17-0500 Body surface area Derived from formula 2.15 m2 Andrei T Defrance Work Phone: [facility] 250 DO Work Phone: 01-21-2022 14:17-0500 Body weight 107.96 kg Andrei T Defrance Work Phone: [facility] 250 DO Work Phone: 01-21-2022 14:17-0500 Diastolic blood pressure 72 mm[Hg] Andrei T Defrance Work Phone: [facility] DO Work Phone: 01-21-2022 14:17-0500 Heart rate 47 /min Andrei T Defrance Work Phone: [facility] 250 DO Work Phone: 01-21-2022 14:17-0500 Systolic blood pressure 132 mm[Hg] Andrei Brooklynn Defrance Work Phone: [facility] 250 DO Work Phone: 11-03-2021 10:36-0400 Heart rate 48 /min Andrei Brooklynn Defrance Work Phone: [facility] [facility] DO Work Phone: 11-03-2021 10:32-0400 Body height 167.64 cm Andrei Walker Defrance Work Phone: [facility] 250 DO Work Phone: 11-03-2021 10:32-0400 Body mass index (BMI) [Ratio] 39.38 kg/m2 Andrei Walker Defrance Work Phone: [facility] 250 DO Work Phone: 11-03-2021 10:32-0400 Body surface area Derived from formula 2.18 m2 Andrei Brooklynn Defrance Work Phone: [facility] DO Work Phone: 11-03-2021 10:32-0400 Body weight 110.68 kg Andrei Walker Defrance Work Phone: [facility] DO Work Phone: 11-03-2021 10:32-0400 Diastolic blood pressure 86 mm[Hg] Andrei Walker Defrance Work Phone: [facility] DO Work Phone: 11-03-2021 10:32-0400 Systolic blood pressure 138 mm[Hg] Andrei Walker Defrance Work Phone: [facility] 250 DO Work Phone: 09-21-2021 12:00-0400 48 1 Andrei T Defrance Work Phone: [facility] [facility] [place] Work Phone: Comment on above: [id number] 09-14-2021 15:01-0400 Body height 167.64 cm Andrei Walker Defrance Work Phone: [facility] DO Work Phone: 09-14-2021 15:01-0400 Body mass index (BMI) [Ratio] 39.87 kg/m2 Andrei Walker Defrance Work Phone: [facility] DO Work Phone: 09-14-2021 15:01-0400 Body surface area Derived from formula 2.19 m2 Andrei Walker Defrance Work Phone: [facility] 250 DO Work Phone: 09-14-2021 15:01-0400 Body weight 112.04 kg Andrei Walker Defrance Work Phone: [facility] 250 DO Work Phone: 09-14-2021 15:01-0400 Diastolic blood pressure 86 mm[Hg] Andrei Walker Defrance Work Phone: [facility] [facility] DO Work Phone: 09-14-2021 15:01-0400 Heart rate 77 /min Andrei Walker Defrance Work Phone: [facility] 250 DO Work Phone: 09-14-2021 15:01-0400 Systolic blood pressure 128 mm[Hg] Andrei Walker Defrance Work Phone: [facility] DO Work Phone: 09-07-2021 11:37-0400 Body height 167.64 cm Andrei Brooklynn Defrance Work Phone: [facility] DO Work Phone: 09-07-2021 11:37-0400 Body mass index (BMI) [Ratio] 39.54 kg/m2 Andrei Walker Defrance Work Phone: [facility] DO Work Phone: 09-07-2021 11:37-0400 Body surface area Derived from formula 2.18 m2 Andrei Walker Defrance Work Phone: [facility] [facility] DO Work Phone: 09-07-2021 11:37-0400 Body weight 111.13 kg Andrei Walker Defrance Work Phone: [facility] [facility] DO Work Phone: 09-07-2021 11:37-0400 Diastolic blood pressure 74 mm[Hg] Andrei Walker Defrance Work Phone: [facility] DO Work Phone: 09-07-2021 11:37-0400 Heart rate 70 /min Andrei Walker Defrance Work Phone: [facility] [facility] DO Work Phone: 09-07-2021 11:37-0400 Systolic blood pressure 122 mm[Hg] Andrei Walker Defrance Work Phone: [facility] DO Work Phone: 08-31-2021 10:45-0400 35 1 Andrei Walker Defrance Work Phone: [facility] [facility] [place] Work Phone: Comment on above: [id number] 07-22-2021 17:22-0400 Body height 170.18 cm Andrei Walker Defrance Work Phone: [facility] DO Work Phone: 07-22-2021 17:22-0400 Body mass index (BMI) [Ratio] 39 kg/m2 Andrei Walker Defrance Work Phone: [facility] [facility] DO Work Phone: 07-22-2021 17:22-0400 Body surface area Derived from formula 2.22 m2 Andrei T Defrance Work Phone: [facility] [facility] DO Work Phone: 07-22-2021 17:22-0400 Body weight 112.95 kg Andrei T Defrance Work Phone: [facility] [facility] DO Work Phone: 07-22-2021 17:22-0400 Diastolic blood pressure 88 mm[Hg] Andrei T Defrance Work Phone: [facility] DO Work Phone: 07-22-2021 17:22-0400 Heart rate 74 /min Andrei T Defrance Work Phone: [facility] [facility] DO Work Phone: 07-22-2021 17:22-0400 Systolic blood pressure 138 mm[Hg] Andrei T Defrance Work Phone: [facility] [facility] DO Work Phone: 07-22-2021 12:50-0400 Body height 170.18 cm Andrei T Defrance Work Phone: [facility] DO Work Phone: 07-22-2021 12:50-0400 Body mass index (BMI) [Ratio] 39 kg/m2 Andrei T Defrance Work Phone: [facility] [facility] DO Work Phone: 07-22-2021 12:50-0400 Body surface area Derived from formula 2.22 m2 Andrei T Defrance Work Phone: [facility] [facility] 250 DO Work Phone: 07-22-2021 12:50-0400 Body weight 112.95 kg Andrei T Defrance Work Phone: [facility] 250 DO Work Phone: 07-22-2021 12:50-0400 Diastolic blood pressure 90 mm[Hg] Andrei Walker Defrance Work Phone: [facility] 250 DO Work Phone: 07-22-2021 12:50-0400 Heart rate 74 /min Andrei Walker Defrance Work Phone: [facility] 250 DO Work Phone: 07-22-2021 12:50-0400 Systolic blood pressure 142 mm[Hg] Andrei Walker Defrance Work Phone: [facility] 250 DO Work Phone: 07-22-2021 12:49-0400 Body height 170.18 cm Andrei Walker Defrance Work Phone: [facility] 250 DO Work Phone: 07-22-2021 12:49-0400 Body mass index (BMI) [Ratio] 39 kg/m2 Andrei Walker Defrance Work Phone: [facility] 250 DO Work Phone: 07-22-2021 12:49-0400 Body surface area Derived from formula 2.22 m2 Andrei Walker Defrance Work Phone: [facility] 250 DO Work Phone: 07-22-2021 12:49-0400 Body weight 112.95 kg Andrei Walker Defrance Work Phone: [facility] 250 DO Work Phone: 07-22-2021 12:49-0400 Diastolic blood pressure 98 mm[Hg] Andrei Walker Defrance Work Phone: [facility] 250 DO Work Phone: 07-22-2021 12:49-0400 Heart rate 74 /min Andrei Walker Defrance Work Phone: [facility] 250 DO Work Phone: 07-22-2021 12:49-0400 Systolic blood pressure 144 mm[Hg] Andrei Walker Defrance Work Phone: [facility] 250 DO Work Phone: Encounters Encounter Date Encounter Type Care Provider Facility Start: 11-08-2024 ambulatory Allyson Easley ty:[id number] Start: 11-02-2024 End: 11-02-2024 Refill Olinda Elena [facility] Work Phone: [facility] - Pharmacy Medication Management Comment on above: Atrial fibrillation, unspecified type (CMS-HCC) Start: 10-23-2024 ambulatory Allyson Easley ty:MELBA Steen Start: 10-10-2024 End: 10-10-2024 ambulatory [facility]ICATION [facility]NAG[facility] Start: 10-10-2024 End: 10-10-2024 Follow-up encounter [facility] 1 [facility] Medication Management Comment on above: Paroxysmal A-fib (CM S-HCC) (Primary Dx) Start: 10-02-2024 End: 10-02-2024 Subsequent hospital visit by physician Adenike Steen Echo/Vasc Room 2 [facility] Comment on above: Cardiomyopathy, unsp ecified type (Multi); Chronic diastolic congestive heart failure Start: 10-02-2024 End: 10-02-2024 ambulatory [facility] Start: 09-17-2024 End: 09-17-2024 ambulatory Allyson SALEEM Facility:[facility] Start: 09-17-2024 End: 09-17-2024 ambulatory Allyson SALEEM Facility:[facility] Start: 09-17-2024 End: 09-17-2024 Patient encounter procedure Allyson SALEEM [facility] Start: 09-14-2024 End: 09-14-2024 ambulatory ALLYSON SALEEM [facility] Start: 09-13-2024 [facility] Start: 09-12-2024 End: 09-12-2024 Follow-up encounter [facility] 1 [facility] Medication Management Comment on above: Paroxysmal A-fib (CM S-HCC) (Primary Dx) Start: 09-12-2024 End: 09-12-2024 ambulatory [facility] MEDICATION MANAGEMENT [facility] Start: 08-16-2024 End: 08-17-2024 Refill Andrei Wiseman MD Work Phone: [facility] Comment on above: PUD (peptic ulcer di sease) Start: 08-15-2024 End: 08-15-2024 Follow-up encounter [facility] 1 [facility] Medication Management Comment on above: Paroxysmal A-fib (CM S-HCC) (Primary Dx) Start: 08-15-2024 End: 08-15-2024 ambulatory [facility] MEDICATION MANAGEMENT [facility] Start: 08-08-2024 End: 08-08-2024 ambulatory [facility] Start: 08-08-2024 Encounter for genera l adult medical examination without abnormal findings [facility] Start: 08-08-2024 End: 08-08-2024 Patient encounter procedure Jerome Quick MD Work Phone: [facility] Comment on above: Encounter for Medica re annual wellness exam (Primary Dx); Paroxysmal A-fib (CMS-HCC); Single subsegmental pulmonary embolism without acute cor pulmonale (CMS-HCC); Chronic diastolic congestive heart failure (CMS-HCC); Essential hypertension; Acoustic neuroma (CMS-HCC); Yeast infection; PUD (peptic ulcer disease); Hypothyroidism (acquired) Start: 08-03-2024 End: 08-03-2024 Telephone encounter Ashley Keene [facility] Comment on above: Vaginitis Start: 08-01-2024 End: 08-01-2024 Professional / ancillary services management Raymundo Santa MA [facility] Comment on above: 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 use; Paroxysmal atrial fibrillation (Multi) Start: 08-01-2024 End: 08-01-2024 ambulatory [facility] Start: 07-26-2024 End: 07-26-2024 Office outpatient visit 25 minutes Jerome Quick MD Work Phone: [facility] Comment on above: Rhinopharyngitis (Pr imary Dx); Paroxysmal A-fib (CMS-HCC); Single subsegmental pulmonary embolism without acute cor pulmonale (CMS-HCC) Start: 07-26-2024 End: 07-26-2024 ambulatory [facility] Start: 07-26-2024 End: 07-26-2024 Documentation procedure Heriberto Parra [facility] Work Phone: [facility] Medication Management Start: 07-25-2024 End: 07-25-2024 Office outpatient visit 25 minutes Yvonne Haas MD Work Phone: [facility] Comment on above: Chronic systolic hea rt failure (Primary Dx); Essential hypertension, benign; Cardiomyopathy, unspecified type (Multi); 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 use; Paroxysmal atrial fibrillation (Multi); Chronic diastolic congestive heart failure; assisted current use of anticoagulant therapy; PVC (premature ventricular contraction); BMI 32.0-32.9,adult; Never smoked cigarettes; Obesity, Class I, BMI 30-34.9 Start: 07-25-2024 End: 07-25-2024 ambulatory [facility] Start: 07-18-2024 End: 07-18-2024 Follow-up encounter [facility] Medication Management Comment on above: Paroxysmal A-fib (CM S-HCC) (Primary Dx) Start: 07-18-2024 End: 07-18-2024 ambulatory [facility] MEDICATION MANAGEMENT [facility] Start: 06-29-2024 End: 06-29-2024 ambulatory [facility] MEDICATION MANAGEMENT [facility] Start: 06-19-2024 End: 06-19-2024 Follow-up encounter [facility] 1 [facility] Medication Management Comment on above: Paroxysmal A-fib (CM S-HCC) (Primary Dx); Single subsegmental pulmonary embolism without acute cor pulmonale (CMS-HCC) Start: 06-19-2024 End: 06-19-2024 ambulatory [facility] Start: 06-07-2024 End: 06-07-2024 Follow-up encounter [facility] 1 [facility] Medication Management Comment on above: Atrial fibrillation, unspecified type (CMS-HCC) (Primary Dx) Start: 06-07-2024 End: 06-07-2024 ambulatory [facility] Start: 05-18-2024 End: 05-18-2024 ambulatory [facility]NAG[facility] Start: 05-18-2024 End: 05-18-2024 Follow-up encounter [facility] 2 [facility] Medication Management Comment on above: Atrial fibrillation, unspecified type (CMS-HCC) (Primary Dx) Start: 05-16-2024 End: 05-16-2024 Evaluation and management of inpatient MATTHEW Sena [facility] Start: 05-09-2024 End: 05-09-2024 Follow-up encounter [facility] 1 [facility] Medication Management Comment on above: Atrial fibrillation, unspecified type (CMS-HCC) (Primary Dx) Start: 05-09-2024 End: 05-09-2024 ambulatory [facility] Start: 04-30-2024 End: 04-30-2024 ambulatory [facility]ICATION MANAGEMENT [facility] Start: 04-30-2024 End: 04-30-2024 Follow-up encounter [facility] 1 [facility] Medication Management Comment on above: Atrial fibrillation, unspecified type (CMS-HCC) (Primary Dx) Start: 04-16-2024 End: 04-16-2024 ambulatory [facility] Start: 04-16-2024 End: 04-16-2024 Follow-up encounter [facility] 1 [facility] Medication Management Comment on above: Paroxysmal A-fib (CM S-HCC) (Primary Dx) Start: 04-09-2024 End: 04-09-2024 Emergency department patient visit ANDREI WISEAMN [facility] Start: 03-26-2024 End: 03-26-2024 ambulatory [facility] Start: 03-26-2024 End: 03-26-2024 Follow-up encounter [facility] 1 [facility] Medication Management Comment on above: Paroxysmal A-fib (CM S-HCC) (Primary Dx) Start: 03-05-2024 End: 03-05-2024 ambulatory [facility] Start: 03-05-2024 End: 03-05-2024 Follow-up encounter [facility] 1 [facility] Medication Therapy Management Comment on above: Paroxysmal A-fib (CM S-HCC) (Primary Dx) Start: 02-20-2024 End: 02-20-2024 ambulatory YVONNE HAAS [facility] Start: 02-20-2024 End: 02-20-2024 Follow-up encounter [facility] 1 [facility] Medication Therapy Management Comment on above: Paroxysmal A-fib (CM S-HCC) (Primary Dx) Start: 02-02-2024 End: 02-02-2024 Follow-up encounter [facility] 1 [facility] Medication Therapy Management Comment on above: Paroxysmal A-fib (CM S-HCC) (Primary Dx) Start: 02-02-2024 End: 02-02-2024 ambulatory [facility] Start: 01-27-2024 End: 01-27-2024 ambulatory Andrei Formanrance Facility:[facility] Start: 01-25-2024 End: 01-25-2024 [facility] Start: 01-24-2024 End: 01-24-2024 [facility] Start: 01-13-2024 End: 01-13-2024 [facility] Start: 01-13-2024 End: 01-13-2024 Follow-up encounter [facility] 2 [facility] Medication Therapy Management Comment on above: Atrial fibrillation, unspecified type (CMS-HCC) (Primary Dx) Start: 01-04-2024 End: 01-04-2024 Refill Andrei Wiseman MD Work Phone: [facility] Start: 12-30-2023 End: 12-30-2023 Follow-up encounter [facility] 1 [facility] Medication Therapy Management Comment on above: Paroxysmal A-fib (CM S-HCC) (Primary Dx) Start: 12-30-2023 End: 12-30-2023 ambulatory [facility] Start: 12-23-2023 End: 12-23-2023 Follow-up encounter [facility] 1 [facility] Medication Therapy Management Comment on above: Paroxysmal A-fib (CM S-HCC) (Primary Dx) Start: 12-23-2023 End: 12-23-2023 [facility] Start: 12-19-2023 End: 12-19-2023 ambulatory [facility] Start: 12-16-2023 End: 12-16-2023 Follow-up encounter [facility] 1 [facility] Medication Therapy Management Comment on above: Paroxysmal A-fib (CM S-HCC) (Primary Dx) Start: 12-16-2023 End: 12-16-2023 ambulatory [facility] Start: 12-14-2023 End: 12-14-2023 Subsequent hospital visit by physician Adenike Steen Echo/Vasc Room 2 [facility] Comment on above: Dilated cardiomyopat hy (Multi) Start: 12-14-2023 End: 12-14-2023 ambulatory [facility] Start: 12-13-2023 End: 12-13-2023 Office outpatient visit 25 minutes Yvonne Haas MD Work Phone: [facility] Comment on above: Paroxysmal atrial fi brillation (Multi) (Primary Dx); PVC (premature ventricular contraction); Mild CAD; Essential hypertension, benign; Dilated cardiomyopathy (Multi); Sick sinus syndrome (Multi); 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; 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 use; Never smoked cigarettes; BMI 33.0-33.9,adult; Obesity, Class I, BMI 30-34.9 Start: 12-13-2023 End: 12-13-2023 ambulatory [facility] Start: 12-09-2023 End: 12-09-2023 ambulatory [facility] Start: 12-09-2023 End: 12-09-2023 Follow-up encounter [facility] 2 [facility] Medication Therapy Management Comment on above: Atrial fibrillation, unspecified type (CMS-HCC) (Primary Dx) Start: 12-01-2023 End: 12-01-2023 Emergency department patient visit MD Andrei Wiseman Work Phone: [facility] Work Phone: Start: 11-30-2023 End: 11-30-2023 ambulatory [facility] Start: 11-30-2023 End: 11-30-2023 Follow-up encounter [facility] 2 [facility] Medication Therapy Management Comment on above: Atrial fibrillation, unspecified type (CMS-HCC) (Primary Dx) Start: 11-18-2023 End: 11-18-2023 Follow-up encounter [facility] 2 [facility] Medication Therapy Management Comment on above: Atrial fibrillation, unspecified type (CMS-HCC) (Primary Dx) Start: 11-18-2023 End: 11-18-2023 [facility] Start: 11-11-2023 End: 11-11-2023 Follow-up encounter [facility] 2 [facility] Medication Therapy Management Comment on above: Atrial fibrillation, unspecified type (CMS-HCC) (Primary Dx) Start: 11-11-2023 End: 11-11-2023 [facility] Start: 11-08-2023 End: 11-08-2023 Follow-up encounter [facility] 1 [facility] Medication Therapy Management Comment on above: Paroxysmal A-fib (CM S-HCC) (Primary Dx) Start: 11-08-2023 End: 11-08-2023 [facility] Start: 11-04-2023 End: 11-04-2023 [facility] Start: 11-04-2023 End: 11-04-2023 Follow-up encounter [facility] 2 [facility] Medication Therapy Management Comment on above: Atrial fibrillation, unspecified type (CMS-HCC) (Primary Dx) Start: 10-31-2023 End: 10-31-2023 [facility] Start: 10-31-2023 End: 10-31-2023 Follow-up encounter [facility] 1 [facility] Medication Therapy Management Comment on above: Atrial fibrillation, unspecified type (CMS-HCC) (Primary Dx) Start: 10-28-2023 End: 10-28-2023 [facility] Start: 10-28-2023 End: 10-28-2023 Anticoagulant drug monitoring [facility] 2 [facility] Medication Therapy Management Comment on above: Atrial fibrillation, unspecified type (CMS-HCC) (Primary Dx) Start: 10-24-2023 End: 10-25-2023 Anticoagulant drug monitoring Alisa Hamilton [facility] Work Phone: [place] [facility] Medication Therapy Management Comment on above: Atrial fibrillation, unspecified type (CMS-HCC) (Primary Dx) Start: 09-16-2023 End: 09-16-2023 Patient encounter procedure Allyson Montenegro HARPER [facility] Start: 08-04-2023 End: 08-04-2023 Patient encounter procedure Andrei Wiseman MD Work Phone: [facility] Comment on above: Routine general medi edwin examination at a health care facility (Primary Dx); Essential hypertension; Paroxysmal A-fib ([facility]-HCC); Chronic diastolic congestive heart failure ([facility]-HCC); H/O gastric bypass; Encounter for screening mammogram for malignant neoplasm of breast; Acoustic neuroma ([facility]-HCC); Single subsegmental pulmonary embolism without acute cor pulmonale ([facility]-HCC) Start: 08-04-2023 End: 08-04-2023 Patient encounter status Andrei Wiseman MD Work Phone: [facility] Work Phone: Start: 05-11-2023 Refill Andrei martell MD Work Phone: [facility] Start: 03-25-2023 Non-patient / Non-visit MD Lui Wiseman Work Phone: [facility] Work Phone: Start: 03-25-2023 End: 03-25-2023 Patient encounter procedure MD Andrei Wiseman Work Phone: [facility] Work Phone: Start: 03-25-2023 End: 03-25-2023 ambulatory MD Andrei Wiseman Work Phone: [facility] Work Phone: Start: 03-14-2023 End: 03-14-2023 Subsequent hospital visit by physician Adenike Lockwood [place] Admin Room 1 [facility] Start: 03-01-2023 End: 03-01-2023 Office outpatient visit 25 minutes Delilah Turner BUILDING INSPECTOR-[employer] Work Phone: [facility] Comment on above: Other cardiomyopathy (CMS/HCC) (Primary Dx); Sick sinus syndrome (CMS/HCC); Paroxysmal atrial fibrillation (CMS/HCC); 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 use; 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; Mild CAD; Essential hypertension, benign; BMI 34.0-34.9,adult; Abnormal electrocardiogram (ECG) (EKG) Start: 02-21-2023 End: 02-21-2023 Patient encounter procedure MD Andrei Wiseman Work Phone: [facility] [place] Work Phone: Start: 02-21-2023 End: 02-21-2023 ambulatory MD Andrei Wiseman Work Phone: [facility] Work Phone: Start: 02-21-2023 End: 02-21-2023 Office outpatient visit 25 minutes Delilah Turner BUILDING INSPECTOR-[place] Work Phone: [facility] Comment on above: Cardiomyopathy, unsp ecified type (CMS/HCC) (Primary Dx); Paroxysmal atrial fibrillation (CMS/HCC); 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 use; Mild CAD; Essential hypertension, benign; 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; BMI 34.0-34.9,adult; Sick sinus syndrome (CMS/HCC) Start: 02-13-2023 Refill Andrei martell MD Work Phone: [facility] Start: 02-01-2023 End: 02-01-2023 Office outpatient visit 25 minutes Andrei Wiseman MD Work Phone: [facility] Comment on above: Essential hypertensi on (Primary Dx); Paroxysmal A-fib (CMS-HCC); Chronic diastolic congestive heart failure (CMS-HCC); H/O gastric bypass; Nephrolithiasis Start: 01-21-2023 End: 01-21-2023 Subsequent hospital visit by physician Adenike Steen Echo/Vasc Room 2 [facility] Comment on above: Cardiomyopathy, unsp ecified type (CMS/HCC); Abnormal electrocardiogram (ECG) (EKG) Start: 01-17-2023 End: 01-17-2023 Office outpatient visit 25 minutes Delilah Turner BUILDING INSPECTOR-[employer] MARKER Work Phone: [facility] Comment on above: Paroxysmal atrial fi brillation (CMS/HCC) (Primary Dx); 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 use; 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; Cardiomyopathy, unspecified type (CMS/HCC); Mild CAD; Essential hypertension, benign; BMI 34.0-34.9,adult; Abnormal electrocardiogram (ECG) (EKG) Start: 09-22-2022 End: 09-22-2022 Lab Drop off Allyson SALEEM [facility] Start: 09-22-2022 End: 09-22-2022 Patient encounter procedure Allyson SALEEM [facility] Start: 09-13-2022 End: 09-13-2022 Patient encounter procedure Allyson SALEEM [facility] Start: 08-05-2022 Chart Update Andrei martell Work Phone: [facility] 250 DO Work Phone: Start: 08-05-2022 End: 08-05-2022 ambulatory MD Andrei Wiseman Work Phone: [facility] Work Phone: Start: 08-05-2022 End: 08-05-2022 Patient encounter procedure MD Andrei Wiseman Work Phone: [facility] Work Phone: Start: 05-01-2022 Chart Update Andrei martell Work Phone: [facility] 250 DO Work Phone: Start: 04-28-2022 Chart Update Andrei martell Work Phone: [facility] 250 DO Work Phone: Start: 04-27-2022 End: 04-27-2022 ambulatory MD Andrei Wiseman Work Phone: [facility] Work Phone: Start: 04-27-2022 End: 04-27-2022 Patient encounter procedure MD Andrei Wiseman Work Phone: [facility] Work Phone: Start: 04-08-2022 Patient encounter procedure Da vid T Defrance Work Phone: [facility] 600 DO Work Phone: Start: 01-21-2022 FUV, Provider: Jose Martin Jones, Status: Pen, Time: 2:10 PM Andrei T Defrance Work Phone: [facility] 250 DO Work Phone: Start: 01-21-2022 Office outpatient vi sit 25 minutes Andrei T Defrance Work Phone: [facility] 250 DO Work Phone: Start: 01-21-2022 ambulatory Jose Martin Jones II Facility: Start: 01-21-2022 End: 01-21-2022 ambulatory MD Andrei Wiseman Work Phone: [facility] Work Phone: Start: 01-21-2022 End: 01-21-2022 Patient encounter procedure MD Andrei Wiseman Work Phone: [facility] Start: 01-12-2022 Patient encounter procedure Da vid T Defrance Work Phone: [facility] 250 DO Work Phone: Start: 11-13-2021 ambulatory Jose Martin Jones II Facility: Start: 11-10-2021 ambulatory KM Sotelo y: Start: 11-03-2021 Office outpatient vi sit 15 minutes Andrei T Defrance Work Phone: [facility] 250 DO Work Phone: Start: 11-03-2021 Patient encounter procedure Da vid T Defrance Work Phone: [facility] 250 DO Work Phone: Start: 11-03-2021 ambulatory KM Turner Facilit y: Start: 09-23-2021 Chart Update Andrei Brooklynn Formanran ce Work Phone: [facility] 250 DO Work Phone: Start: 09-22-[address] Andrei Bowser as Defrance Facility:[id number] Start: 09-21-2021 Patient encounter procedure Da vid T Defrance Work Phone: [facility] [address] [place] Work Phone: Start: 09-21-2021 ambulatory Ms. Delilah Turner Facilit y:[id number] Start: 09-14-2021 Patient encounter procedure Da vid T Defrance Work Phone: [facility] 250 DO Work Phone: Start: 09-14-2021 ambulatory Andrei Formanrance Facility: Start: 09-07-2021 Office outpatient vi sit 25 minutes Andrei Walker [place] Work Phone: [facility] 250 DO Work Phone: Start: 09-07-2021 ambulatory Jose Martin Jones II Facility: Start: 08-31-2021 Patient encounter procedure Da vid T Defrance Work Phone: [facility] [address] [place] Work Phone: Start: 08-31-[address] Andrei Bowser as [place] Facility:[id number] Start: 07-22-2021 Office consultation new/estab patient 80 min Andrei Walker [place]rance Work Phone: [facility] 250 DO Work Phone: Start: 07-22-2021 Office outpatient ne w 60 minutes Andrei Wiseman Work Phone: [facility] 250 DO Work Phone: Start: 07-22-2021 ambulatory Andrei Wiseman Facility: Start: 12-05-2020 Encounter for prepro cedural laboratory examination DR ALLYSON SALEEM [facility] Start: 12-04-2020 End: 12-04-[address] ALLYSON SALEEM Facility:H1 Start: 12-01-2020 End: 12-02-[address] ALLYSON SALEEM Facility:[facility]1 Start: 12-01-2020 End: 12-02-2020 Encounter for preprocedural laboratory examination DR ALLYSON SALEEM Facility:[facility]1 Start: 11-13-2020 End: 11-13-[address] ANDREI WISEMAN Facility:[facility]1 Start: 11-11-2020 Preoperative state Andrei brooks MD Work Phone: [facility] Start: 11-10-2020 End: 11-11-[address] ANDREI WISEMAN Facility:[facility]1 Start: 11-06-2020 End: 11-07-[address] ANDREI WISEMAN Facility:[facility]1 Start: 09-15-2020 End: 09-16-[address] ANDREI WISEMAN Facility:[facility]1 Procedures Date Procedure Procedure Detail Performing Clinician Start: 10-10-2024 Prothrombin time [facility] Work Phone: Start: 09-13-2024 Thyrotropin [Units/v olume] in Serum [...] rx cont ecg trcg only Delilah Turner [employer]ILD[employer] Work Phone: Start: 03-01-2023 Ecg routine ecg w/le ast 12 lds w/i&r Delilah Turner BUILDING INSPECTOR[employer] Work Phone: Start: 02-21-2023 Ecg routine ecg w/le ast 12 lds w/i&r Delilah Turner BUILDING INSPECTOR[employer] Work Phone: Start: 02-01-2023 Adult depression scr eening assessment Andrei Wiseman MD Work Phone: Start: 01-21-2023 Echo tthrc r-t 2d w/ wom-mode compl spec&colr d Delilah Turner BUILDING INSPECTOR[employer] Work Phone: Start: 01-17-2023 Ecg routine ecg w/le ast 12 lds w/i&r Delilah Tushar Johnny BUILDING INSPECTOR[employer] Work Phone: Start: 08-05-2022 Plain chest X-ray MD [place] Work Phone: Start: 04-27-2022 Plain chest X-ray MD Varghese Defrance Work Phone: Start: 01-21-2022 Plain chest X-ray MD Varghese Defrance Work Phone: Start: 08-31-2021 Echocardiography Andrei Wiseman Work Phone: Start: 12-04-2020 Extracorporeal shock wave lithotripsy of calculus of kidney Allyson SALEEM Start: 11-13-2020 Extracorporeal shock wave lithotripsy of calculus of kidney Allyson SALEEM Start: 02-07-2018 Cholecystectomy Allyson SALEEM Start: 02-08-2016 Cataract surgery Baldomero SALEEM Start: 02-07-2007 Colonoscopy Allyson WA TERS Start: 01-27-2007 Colonoscopy Andrei adkins MD Work Phone: Start: 01-07-2005 Panniculectomy Allyson SALEEM Start: 02-07-2002 Biopsy of uterine ligament Allyson SALEEM Start: 02-07-2002 Colonoscopy Allyson WA TERS Start: 02-07-2002 Arianne-en-Y gastrojejunostomy Allyson SALEEM Start: 02-07-1977 Ligation of fallopian tube Allyson SALEEM Start: 02-08-1948 Tonsillectomy Allyson CESPEDES Biopsy Andrei T Defranc e Work Phone: Cardioversion Andrei Brooklynn Dicksonran ce Work Phone: Cataract surgery Andrei Walker Def sejal Work Phone: Cholecystectomy Andrei Walker Defr ance Work Phone: Colonoscopy Andrei Walker Defranc e Work Phone: Esophagogastrostomy, antesternal or antethoracic Andrei Walker [place] Work Phone: Comment on above: History of Gastric S urgery For Morbid Obesity Gastric Bypass; Ligation of fallopian tube D avid T Defrance Work Phone: Lithotripsy Andrei Walker Defranc e Work Phone: Operation on mouth Andrei Wahl efrance Work Phone: Panniculectomy Andrei Walker Dicksonra nce Work Phone: Tonsillectomy Andrei Peguero ce Work Phone: Plan of Treatment Date Care Activity Detail Author Start: 09-13-2025 Thyroid stimulating hormone measurement TSH Level [facility] Start: 08-13-2025 End: 08-13-2025 Patient encounter procedure 08/13/2025 1:00 PM EDT Office Visit [facility] [address] [place] [phone] Jerome Quick MD [address] [place] [address] [facility] Start: 08-08-2025 Depression Screening Depression Screening [facility] Start: 08-08-2025 Fall Risk Screening Fall Risk Screening [facility] Start: 08-08-2025 Medicare Annual Wellness Visit Medicare Annual Wellness Visit [facility] Start: 08-08-2025 Tobacco Screening Tobacco Screening [facility] Start: 07-26-2025 Depression Screening Depression Screening [facility] Start: 07-26-2025 Tobacco Screening Tobacco Screening [facility] Start: 05-16-2025 Tobacco Screening Tobacco Screening [facility] Start: 04-09-2025 Tobacco Screening Tobacco Screening [facility] Start: 02-24-2025 End: 07-25-2025 Aspartate aminotransferase [Enzymatic activity/volume] in Serum or Plasma by With P-5'-P Aspartate Aminotransferase Lab Routine 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 use Paroxysmal atrial fibrillation (Multi) Expected: 02/24/2025, Expires: 07/25/2025 [facility] Work Phone: Comment on above: Expected: 02/24/2025, Expires: Start: 02-24-2025 End: 07-25-2025 Basic metabolic 2000 panel - Serum or Plasma Basic Metabolic Panel Lab Routine 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 use Paroxysmal atrial fibrillation (Multi) Expected: 02/24/2025, Expires: 07/25/2025 [facility] Work Phone: Comment on above: Expected: 02/24/2025, Expires: Start: 02-24-2025 End: 07-25-2025 Thyrotropin [Units/volume] in Serum or Plasma Thyroid Stimulating Hormone Lab Routine 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 use Paroxysmal atrial fibrillation (Multi) Expected: 02/24/2025, Expires: 07/25/2025 [facility] Work Phone: Comment on above: Expected: 02/24/2025, Expires: Start: 02-14-2025 End: 02-14-2025 Patient encounter procedure 02/14/2025 1:15 PM EST Office Visit [facility] [address] [place] [phone] Jerome Quick MD [address] [place] [address] [facility] Start: 01-24-2025 Depression Screening Depression Screening [facility] Start: 01-24-2025 Fall Risk Screening Fall Risk Screening [facility] Start: 01-24-2025 Tobacco Screening Tobacco Screening [facility] Start: 01-24-2025 End: 07-25-2025 XR Chest 2 Views XR chest 2 views Imaging Routine 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 use Paroxysmal atrial fibrillation (Multi) Expected: 01/24/2025, Expires: 07/25/2025 [facility] Work Phone: Comment on above: Expected: 01/24/2025, Expires: Start: 12-15-2024 Thyroid stimulating hormone measurement TSH Level [facility] Start: 12-13-2024 Echocardiography Echocardiogram [facility] Start: 11-29-2024 End: 11-29-2024 Patient encounter procedure 11/29/2024 10:50 AM EDT Office Visit [facility] [address] [place] [address] Yvonne Haas MD [address] [place] [address] [facility] Start: 11-07-2024 End: 11-07-2024 Follow-up encounter 11/07/2024 2:00 PM EDT Follow Up Anticoagulation [facility] Medication Management [address] [facility] [place] [place] [address] [facility] Start: 10-10-2024 End: 10-10-2024 Follow-up encounter 10/10/2024 2:00 PM EDT Follow Up Anticoagulation [facility] Medication Management [address] [facility] [place] [place] [address] [facility] Start: 10-08-2024 COVID-19 Vaccine ( season) COVID-19 Vaccine ( season) [facility] Start: 10-08-2024 Influenza vaccination [facility] Start: 10-02-2024 End: 10-02-2024 Patient encounter procedure 10/02/2024 1:30 PM EDT Appointment [facility] [address] [place] [phone] [facility] Start: 09-24-2024 End: 07-25-2026 US Heart Transthoracic Transthoracic Echo Limited Echocardiography Routine Cardiomyopathy, unspecified type (Multi) Chronic diastolic congestive heart failure Expected: 09/24/2024 (Approximate), Expires: 07/25/2026 [facility] Work Phone: Comment on above: Expected: 09/24/2024 (Approximate), Expi res: 07/25/2026 Start: 09-12-2024 End: 09-12-2024 Follow-up encounter 09/12/2024 2:00 PM EDT Follow Up Anticoagulation [facility] Medication Management [address] [place] [address] [facility] Start: 09-08-2024 End: 08-08-2025 CBC W Auto Differential panel - Blood CBC auto differential Lab Routine Essential hypertension Expected: 09/08/2024 (Approximate), Expires: 08/08/2025 [employer] Comment on above: Expected: 09/08/2024 (Approximate), Expi res: 08/08/2025 Start: 09-08-2024 End: 08-08-2025 Comprehensive metabolic 2000 panel - Serum or Plasma Comprehensive metabolic panel Lab Routine Essential hypertension Expected: 09/08/2024 (Approximate), Expires: 08/08/2025 [employer] Comment on above: Expected: 09/08/2024 (Approximate), Expi res: 08/08/2025 Start: 09-08-2024 End: 08-08-2025 Lipid 1996 panel - Serum or Plasma Lipid profile Lab Routine Chronic diastolic congestive heart failure (CMS-HCC) Hypothyroidism (acquired) Expected: 09/08/2024 (Approximate), Expires: 08/08/2025 [employer] Work Phone: Comment on above: Expected: 09/08/2024 (Approximate), Expi res: 08/08/2025 Start: 09-08-2024 End: 08-08-2025 Thyrotropin [Units/volume] in Serum or Plasma TSH Lab Routine Essential hypertension Expected: 09/08/2024 (Approximate), Expires: 08/08/2025 [employer] Comment on above: Expected: 09/08/2024 (Approximate), Expi res: 08/08/2025 Start: 08-15-2024 End: 08-15-2024 Follow-up encounter 08/15/2024 1:45 PM EDT Follow Up Anticoagulation [facility] Medication Management [address] [place] [address] [facility] Start: 08-14-2024 Adult BMI Screening Adult BMI Screening [facility] Start: 08-08-2024 End: 08-08-2024 Patient encounter procedure 08/08/2024 1:00 PM EDT Office Visit [facility] [address] [place], [place] [address] [phone] Jerome Quick MD [address] [place] [id number] [facility] Start: 08-04-2024 Medicare Annual Wellness Visit Medicare Annual Wellness Visit (AWV) [facility] Start: 08-03-2024 Adult BMI Screening Adult BMI Screening [facility] Start: 08-03-2024 Depression Screening Depression Screening [facility] Start: 08-03-2024 Fall Risk Screening Fall Risk Screening [facility] Start: 08-03-2024 Medicare Annual Wellness Visit Medicare Annual Wellness Visit [facility] Start: 08-03-2024 Tobacco Screening Tobacco Screening [facility] Start: 08-01-2024 End: 07-25-2025 ECG 12 Lead [facility] Work Phone: Comment on above: Expected: 08/01/2024 (Approximate), Expi res: 07/25/2025 Start: 08-01-2024 End: 08-01-2024 Professional / ancillary services management 08/01/2024 11:00 AM EDT Ancillary Procedure [facility] [address] [address] [place] [phone] [facility] Start: 07-25-2024 End: 07-25-2025 Complete Pulmonary Function Test (Spirometry/DLCO/Lung Volumes) Complete Pulmonary Function Test (Spirometry/DLCO/Lung Volumes) PFT Routine 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 use Paroxysmal atrial fibrillation (Multi) Expected: 07/25/2024 (Approximate), Expires: 07/25/2025 [facility] Service Area Work Phone: Comment on above: Expected: 07/25/2024 (Approximate), Expi res: 07/25/2025 Start: 07-25-2024 End: 07-25-2024 Patient encounter procedure 07/25/2024 10:30 AM EDT Office Visit [facility] [address] [facility] [address] [place] [phone] Yvonne Haas MD [address] [facility] [address] [place] [address] [facility] Start: 06-29-2024 End: 06-29-2024 Follow-up encounter 06/29/2024 3:15 PM EDT Follow Up Anticoagulation [facility] Medication Management [address] [facility] [place] [address] [facility]ication Management Start: 06-18-2024 End: 06-18-2024 Follow-up encounter 06/18/2024 1:00 PM EDT Follow Up Anticoagulation [facility] Medication Management [address] [place] [address] [facility] Medication Management Start: 06-01-2024 End: 06-01-2024 Follow-up encounter 06/01/2024 1:30 PM EDT Follow Up Anticoagulation [facility] Medication Management [address] [place] [address] [facility]ication Management Start: 05-27-2024 COVID-19 Vaccine ( season) COVID-19 Vaccine ( season) [facility] Start: 05-27-2024 COVID-19 Vaccine ( season) COVID-19 Vaccine ( season) [facility] Start: 05-16-2024 End: 05-16-2024 Follow-up encounter 05/16/2024 3:15 PM EDT Follow Up Anticoagulation [facility] Medication Management [address] [place] [address] [facility] Medication Management Start: 05-09-2024 End: 05-09-2024 Follow-up encounter 05/09/2024 1:45 PM EDT Follow Up Anticoagulation [facility] Medication Management [address] [place] [address] [facility] Medication Management Start: 04-30-2024 End: 04-30-2024 Follow-up encounter 04/30/2024 11:45 AM EDT Follow Up Anticoagulation [facility] Medication Management [address] [place] [address] [facility] Medication Management Start: 04-16-2024 End: 04-16-2024 Follow-up encounter 04/16/2024 11:30 AM EDT Follow Up Anticoagulation [facility] Medication Management [address] [place] [address] [facility] Medication Management Start: 03-22-2024 End: 03-22-2024 Follow-up encounter 03/22/2024 11:45 AM EST Follow [facility] Med[facility] Therapy Management [address] [place] [address] [facility] Medication Therapy Management Start: 03-14-2024 End: 03-14-2024 Patient encounter procedure 03/14/2024 11:30 AM EST Appointment [facility] - Pulmonary Function [address] [place] [address] [facility] Pulmonary Function Start: 03-05-2024 End: 03-05-2024 Follow-up encounter 03/05/2024 11:45 AM EST Follow Up Anticoagulation [facility] Medication Therapy Management [address] [place] [address] [facility] Medication Therapy Management Start: 02-10-2024 End: 02-10-2024 Follow-up encounter 02/10/2024 10:45 AM EST Follow Up Anticoagulation [facility] Medication Therapy Management [address] [place] [address] [facility] Medication Therapy Management Start: 02-02-2024 Adult BMI Screening Adult BMI Screening [facility] Start: 02-02-2024 Depression Screening Depression Screening [facility] Start: 02-02-2024 Fall Risk Screening Fall Risk Screening [facility] Start: 02-02-2024 Tobacco Screening Tobacco Screening [facility] Start: 01-25-2024 End: 01-25-2024 Patient encounter procedure 01/25/2024 9:15 AM EST Office Visit [facility] [address] [place] [phone] Andrei Wiseman MD [address] [place] [address] [facility] Start: 01-24-2024 End: 01-24-2024 Follow-up encounter 01/24/2024 11:45 AM EST Follow Up Anticoagulation [facility] Medication Therapy Management [address] [place] [address] [facility] Medication Therapy Management Start: 01-22-2024 Echocardiography Echocardiogram [facility] Start: 01-13-2024 End: 01-13-2024 Follow-up encounter 01/13/2024 11:45 AM EST Follow Up Anticoagulation [facility] Medication Therapy Management [address] [place] [address] [facility] Medication Therapy Management Start: 12-30-2023 End: 12-30-2023 Follow-up encounter 12/30/2023 11:30 AM EST Follow Up Anticoagulation [facility] Medication Therapy Management [address] [place] [address] [facility] Medication Therapy Management Start: 12-23-2023 End: 12-23-2023 Follow-up encounter 12/23/2023 11:30 AM EST Follow Up Anticoagulation [facility] Medication Therapy Management [address] [place] [address] [facility] Medication Therapy Management Start: 12-19-2023 End: 12-19-2023 Professional / ancillary services management 12/19/2023 10:00 AM EST Ancillary Procedure [address] [address] [facility] Start: 12-16-2023 End: 12-16-2023 Follow-up encounter 12/16/2023 3:15 PM EST Follow Up Anticoagulation [facility] Medication Therapy Management [address] [place] [address] [facility] Medication Therapy Management Start: 12-16-2023 Subsequent hospital visit by physician 12/16/2023 2:24 PM EST Hospital Encounter [facility] [address] [place] [address] Paroxysmal atrial fibrillation (CMS-HCC) (Primary Dx) [facility] Comment on above: Paroxysmal atrial fibrillation (CMS-HCC) (Primary Dx) Start: 12-14-2023 End: 12-14-2023 Professional / ancillary services management 12/14/2023 2:00 PM EST Ancillary Procedure [address] [phone] [facility] Start: 12-14-2023 End: 12-14-2023 Patient encounter procedure 12/14/2023 12:30 PM EST [facility] [address] [place] [phone] [facility] Start: 12-13-2023 End: 12-12-2024 Complete Pulmonary Function Test (Spirometry/DLCO/Lung Volumes) Complete Pulmonary Function Test (Spirometry/DLCO/Lung Volumes) PFT Routine Paroxysmal atrial fibrillation (Multi) 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 use Expected: 12/13/2023 (Approximate), Expires: 12/12/2024 [facility] Work Phone: Comment on above: Expected: 12/13/2023 (Approximate), Expi res: 12/12/2024 Start: 12-13-2023 End: 12-12-2024 Holter monitor study Holter Or Event [employer] Cardiac Services Routine PVC (premature ventricular contraction) Expected: 12/13/2023 (Approximate), Expires: 12/12/2024 [facility] Work Phone: Comment on above: Expected: 12/13/2023 (Approximate), Expi res: 12/12/2024 Start: 12-13-2023 End: 12-12-2024 Thyrotropin [Units/volume] in Serum or Plasma Thyroid Stimulating Hormone Lab Routine Paroxysmal atrial fibrillation (Multi) 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 use Expected: 12/13/2023 (Approximate), Expires: 12/12/2024 [facility] Work Phone: Comment on above: Expected: 12/13/2023 (Approximate), Expi res: 12/12/2024 Start: 12-13-2023 End: 12-12-2025 US Heart Transthoracic Transthoracic Echo Complete Echocardiography Routine Dilated cardiomyopathy (Multi) Expected: 12/13/2023 (Approximate), Expires: 12/12/2025 [facility] Service Area Work Phone: Comment on above: Expected: 12/13/2023 (Approximate), Expi res: 12/12/2025 Start: 12-09-2023 End: 12-09-2023 Follow-up encounter 12/09/2023 11:00 AM EDT Follow Up Anticoagulation [facility] Medication Therapy Management [address] [place] [address] [facility] Medication Therapy Management Start: 11-30-2023 End: 11-30-2023 Follow-up encounter 11/30/2023 11:45 AM EDT Follow Up Anticoagulation [facility] Medication Therapy Management [address] [place] [address] [facility] Medication Therapy Management Start: 11-18-2023 End: 11-18-2023 Follow-up encounter 11/18/2023 11:30 AM EDT Follow Up Anticoagulation [facility] Medication Therapy Management [address] [place] [address] [facility] Medication Therapy Management Start: 11-11-2023 End: 11-11-2023 Follow-up encounter 11/11/2023 10:45 AM EDT Follow Up Anticoagulation [facility] Medication Therapy Management [address] [place] [address] [facility] Medication Therapy Management Start: 11-08-2023 End: 11-08-2023 Follow-up encounter 11/08/2023 9:00 AM EDT Follow Up Anticoagulation [facility] Medication Therapy Management [address] [place] [address] [facility] Medication Therapy Management Start: 11-04-2023 End: 11-04-2023 Follow-up encounter 11/04/2023 1:00 PM EDT Follow Up Anticoagulation [facility] Medication Therapy Management [address] [place] [address] [facility] Medication Therapy Management Start: 10-31-2023 End: 10-31-2023 Clinical Support 10/31/2023 3:30 PM EDT Clinical Support [facility] Medication Therapy Management [address] [place] [address] [facility] Medication Therapy Management Start: 10-28-2023 End: 10-28-2023 Anticoagulant drug monitoring 10/28/2023 1:00 PM EDT New Anticoagulation [facility] Medication Therapy Management [address] [place] [address] [facility] Medication Therapy Management Start: 10-09-2023 COVID-19 Vaccine ( season) COVID-19 Vaccine () [facility] Start: 10-09-2023 Influenza vaccination Influenza Vaccine [facility] Start: 08-04-2023 End: 08-03-2024 CBC W Auto Differential panel - Blood CBC auto differential Lab Routine Essential hypertension Paroxysmal A-fib ([facility]) Expected: 08/04/2023, Expires: 08/03/2024 [facility] Comment on above: Expected: 08/04/2023, Expires: Start: 08-04-2023 End: 08-03-2024 Comprehensive metabolic 2000 panel - Serum or Plasma Comprehensive metabolic panel Lab Routine Essential hypertension Paroxysmal A-fib ([facility]-HCC) Expected: 08/04/2023, Expires: 08/03/2024 [facility] Comment on above: Expected: 08/04/2023, Expires: Start: 08-04-2023 End: 08-03-2024 Lipid 1996 panel - Serum or Plasma Lipid profile Lab Routine Essential hypertension Paroxysmal A-fib ([facility]-HCC) Expected: 08/04/2023, Expires: 08/03/2024 [facility] Comment on above: Expected: 08/04/2023, Expires: Start: 08-04-2023 End: 08-03-2024 Thyroid profile includes TSH FT4 Thyroid profile includes TSH FT4 Lab Routine Essential hypertension Paroxysmal A-fib ([facility]) Expected: 08/04/2023, Expires: 08/03/2024 [facility] Comment on above: Expected: 08/04/2023, Expires: Start: 08-04-2023 End: 08-04-2023 Patient encounter procedure 08/04/2023 9:30 AM EDT Office Visit [facility] [address] [place] [address] Andrei Wiseman MD [address] [place] [address] [facility] Start: 08-03-2023 Medicare Annual Wellness Visit Medicare Annual Wellness Visit [facility] Start: 05-24-2023 End: 05-24-2023 Patient encounter procedure 05/24/2023 9:10 AM EDT Office Visit [address] [place] [id number] Jose Martin Jones MD [address] [facility] [address] [place], [place] [id number] [facility] Start: 04-14-2023 COVID-19 Vaccine ( season) COVID-19 Vaccine ( season) [facility] Start: 03-14-2023 End: 03-14-2023 Professional / ancillary services management 03/14/2023 3:00 PM EST Ancillary Procedure [facility] [address] [facility] [address] [place] [address] [facility] Start: 03-14-2023 End: 03-14-2023 Patient encounter procedure 03/14/2023 2:15 PM EST Appointment [facility] [address] [facility] [address] [place] [address] [facility] Start: 03-14-2023 End: 03-14-2023 Patient encounter procedure [facility] Start: 03-01-2023 End: 03-01-2024 Holter monitor study Holter Or Event Accounting Systems Analyst Cardiac Services Routine Sick sinus syndrome (CMS/HCC) Paroxysmal atrial fibrillation (CMS/HCC) Expected: 03/01/2023 (Approximate), Expires: 03/01/2024 [facility] Service Area Work Phone: Comment on above: Expected: 03/01/2023 (Approximate), Expi res: 03/01/2024 Start: 03-01-2023 End: 03-01-2025 NM Heart Perfusion W stress and W radionuclide IV Nuclear Stress Test Cardiac Nuclear Medicine Routine Other cardiomyopathy (CMS/HCC) Paroxysmal atrial fibrillation (CMS/HCC) Essential hypertension, benign Abnormal electrocardiogram (ECG) (EKG) Expected: 03/01/2023 (Approximate), Expires: 03/01/2025 [facility] Work Phone: Comment on above: Expected: 03/01/2023 (Approximate), Expi res: 03/01/2025 Start: 03-01-2023 End: 03-01-2023 Patient encounter procedure 03/01/2023 12:30 PM EST Office Visit [facility] [address] [facility] [address] [place] [address] Delilah Turner, BUILDING INSPECTOR-BAND SAW MARKER [address] [facility] [address] [place] [address] [facility] Start: 02-21-2023 End: 02-22-2024 Basic metabolic 2000 panel - Serum or Plasma Basic Metabolic Panel Lab Routine Cardiomyopathy, unspecified type (CMS/HCC) 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 use Sick sinus syndrome (CMS/HCC) Expected: 02/21/2023 (Approximate), Expires: 02/22/2024 [facility] Area Work Phone: Comment on above: Expected: 02/21/2023 (Approximate), Expi res: 02/22/2024 Start: 02-21-2023 End: 02-22-2024 Thyrotropin [Units/volume] in Serum or Plasma Thyroid Stimulating Hormone Lab Routine Cardiomyopathy, unspecified type (CMS/HCC) 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 use Sick sinus syndrome (CMS/HCC) Expected: 02/21/2023 (Approximate), Expires: 02/22/2024 [facility] Work Phone: Comment on above: Expected: 02/21/2023 (Approximate), Expi res: 02/22/2024 Start: 02-21-2023 End: 02-21-2023 Patient encounter procedure 02/21/2023 10:30 AM EST Office Visit [facility] [address] [facility] [address] [place] [address] Delilah Turner, BUILDING INSPECTOR-BAND SAW MARKER [address] [facility] [address] [place] [address] [facility] Start: 02-08-2023 COVID-19 Vaccine (4 - Pfizer series) COVID-19 Vaccine (4 - Pfizer series) [facility] Start: 01-21-2023 End: 01-21-2023 Patient encounter procedure 01/21/2023 10:45 AM EST Appointment [facility] [address] [facility] [address] [place] [address] [facility] Start: 01-17-2023 End: 01-18-2024 Basic metabolic 2000 panel - Serum or Plasma Basic Metabolic Panel Lab Routine Cardiomyopathy, unspecified type (CMS/HCC) Expected: 01/17/2023 (Approximate), Expires: 01/18/2024 [facility] Work Phone: Comment on above: Expected: 01/17/2023 (Approximate), Expi res: 01/18/2024 Start: 01-17-2023 End: 01-18-2024 Holter monitor study Holter Or Event Accounting Systems Analyst Cardiac Services Routine Paroxysmal atrial fibrillation (CMS/HCC) Expected: 01/17/2023 (Approximate), Expires: 01/18/2024 [facility] Work Phone: Comment on above: Expected: 01/17/2023 (Approximate), Expi res: 01/18/2024 Start: 01-17-2023 End: 01-18-2024 Natriuretic peptide B [Mass/volume] in Blood B-Type Natriuretic Peptide Lab Routine Cardiomyopathy, unspecified type (CMS/HCC) Expected: 01/17/2023 (Approximate), Expires: 01/18/2024 [facility] Work Phone: Comment on above: Expected: 01/17/2023 (Approximate), Expi res: 01/18/2024 Start: 01-17-2023 End: 01-17-2025 Heart Transthoracic Transthoracic Echo (TTE) Complete Echocardiography Routine Cardiomyopathy, unspecified type (CMS/HCC) Abnormal electrocardiogram (ECG) (EKG) Expected: 01/17/2023 (Approximate), Expires: 01/17/2025 [facility] Service Area Work Phone: Comment on above: Expected: 01/17/2023 (Approximate), Expi res: 01/17/2025 Start: 01-17-2023 FUV, Provider: Delilah Nassar, Status: Pen, Time: 9:30 AM FUV, Provider: Delilah Nassar, Status: Pen, Time: 9:30 AM [facility] [address] DO Work Phone: Start: 10-08-2022 Influenza vaccination Influenza Vaccine [facility] Start: 10-08-2022 Screening for osteoporosis Bone Density Scan [facility] Start: 08-31-2022 Echocardiography Echocardiogram [facility] Start: 08-06-2022 FUV, Provider: Jose Martin Jones, Status: Pen, Time: 2:00 PM FUV, Provider: Jose Martin Jones, Status: Pen, Time: 2:00 PM [facility] [address] DO Work Phone: Start: 11-10-2021 HOLTER MON, Provider: PARKER DUGAN SMOCKING MACHINE OPERATOR 1,[id number], Status: Pen, Time: 10:00 AM HOLTER MON, Provider: PARKER DUGAN SMOCKING MACHINE OPERATOR 1,[id number], Status: Pen, Time: 10:00 AM [facility] [address] DO Work Phone: Start: 10-21-2021 FUV, Provider: Delilah Nassar, Status: Pen, Time: 9:00 AM FUV, Provider: Delilah Nassar, Status: Pen, Time: 9:00 AM -[facility] [address] DO Work Phone: Start: 10-08-2021 Screening for osteoporosis Bone Density Scan [facility] Start: 09-21-2021 STRESS NUC, Provider: TANISHA HHVI NUCLEAR 01,[id number], Status: Pen, Time: 12:00 PM STRESS NUC, Provider: TANISHA HHVI NUCLEAR 01,[id number], Status: Pen, Time: 12:00 PM -[facility] [address] DO Work Phone: Start: 09-14-2021 EKG, Provider: PARKER DUGAN SMOCKING MACHINE OPERATOR 1,[id number], Status: Pen, Time: 11:00 AM EKG, Provider: PARKER DUGAN SMOCKING MACHINE OPERATOR 1,[id number], Status: Pen, Time: 11:00 AM -[facility] [address] DO Work Phone: Start: 09-07-2021 FUV, Provider: Delilah Nassar, Status: Pen, Time: 11:30 AM FUV, Provider: Delilah Nassar, Status: Pen, Time: 11:30 AM -[facility] [address] DO Work Phone: Start: 08-31-2021 ECHO, Provider: TANISHA HHVI ULTRASOUND 01,[id number], Status: Pen, Time: 10:45 AM ECHO, Provider: TANISHA HHVI ULTRASOUND 01,[id number], Status: Pen, Time: 10:45 AM -[facility] [address] DO Work Phone: Start: 2020 RSV High Risk: (Elderly (60+) or Population) (1 - 1-dose 75+ series) RSV High Risk: (Elderly (60+) or Population) (1 - 1-dose 75+ series) [facility] Start: 01-28-2012 Screening for malignant neoplasm of colon Colonoscopy [facility] Start: 09-05-1967 DTaP/Tdap/Td Vaccines (1 - Tdap) DTaP/Tdap/Td Vaccines (1 - Tdap) [facility] Start: 1964 DTaP,Tdap and Td Vaccines (1 - Tdap) DTaP,Tdap and Td Vaccines (1 - Tdap) [facility] Start: 09-05-1963 Adult BMI Follow Up Plan Adult BMI Follow Up Plan [facility] Start: 09-05-1963 Diabetes mellitus screening Diabetes Screening [facility] Start: 09-05-1963 Hepatitis C screening Hepatitis C Screening [facility] Start: 1945 Creatinine measurement Creatinine Level [facility] Start: 1945 Lipid panel Lipid Panel [facility] Start: 1945 Medicare Annual Wellness Visit Medicare Annual Wellness Visit (AWV) [facility] Start: 1945 Potassium measurement Potassium Level [facility] Start: 1945 Skin Cancer Screening Skin Cancer Screening [facility] Start: 1945 Thyroid stimulating hormone measurement TSH Level [facility] End: 08-03-2024 DBT Breast - bilateral screening Mammography screening bilateral with CAD Imaging Routine Encounter for screening mammogram for malignant neoplasm of breast 1 Occurrences starting 08/04/2023 until 08/03/2024 [facility] Work Phone: Comment on above: 1 Occurrences starting 08/04/2023 until 08/03/2024 ECG 12 Lead ECG 12 Lead ECG Routine Paroxysmal atrial fibrillation (CMS/HCC) 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 use 01/17/2023 10:04 AM [facility] Work Phone: ECG 12 Lead ECG 12 Lead ECG Routine Sick sinus syndrome (CMS/HCC) 02/21/2023 10:30 AM [facility] Work Phone: ECG 12 Lead ECG 12 Lead ECG Routine 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 use 03/01/2023 12:30 PM [facility] Work Phone: Patient Education Shortness of b reath International Normalized Ratio Anxiety, Adult ED [facility] Work Phone: Patient [facility] Work Phone: End: 01-21-2023 Heart Transthoracic [facility] Service Area Work Phone: Comment on above: Once for 1 Occurrences starting 01/22/20 until 01/21/2023 End: 10-02-2024 Heart Transthoracic [facility] Service Area Work Phone: Comment on above: Once for 1 Occurrences starting 10/03/19 until 10/02/2024 Immunizations Immunization Date Immunization Notes Care Provider maximus 11-27-2023 influenza, high dose seasonal, preservative-free Pm 1 [facility] 11-27-2023 influenza virus vacc ine, unspecified formulation Pmh 1 [facility] 12-14-2022 Influenza, High-dose , Quadrivalent Pm 1 [facility] 08-20-2022 zoster vaccine recombinant Andrei Wiseman MD Work Phone: [facility] 04-01-2022 zoster vaccine recombinant Andrei Wiseman Work Phone: [facility] 250 DO Work Phone: 11-10-2021 influenza, high dose seasonal, preservative-free Delilah Turner BUILDING INSPECTOR-BAND SAW MARKER Work Phone: [facility] Work Phone: 11-10-2021 influenza, seasonal, injectable Andrei Wiseman Work Phone: [facility] 250 DO Work Phone: Comment on above: Series: 11-10-2021 influenza virus vacc ine, unspecified formulation Andrei Wiseman MD Work Phone: [facility] 10-23-2021 Fluzone High-Dose Quadrivalent 0.7 ML Intramuscular Suspension Prefilled Syringe Andrei Wiseman Work Phone: [facility] 250 DO Work Phone: 10-23-2021 influenza, high dose seasonal, preservative-free Delilah Turner BUILDING INSPECTOR-BAND SAW MARKER Work Phone: [facility] Work Phone: 10-23-2021 Moderna COVID-19 Biv al Booster 50 MCG/0.5ML Intramuscular Suspension Andrei Wiseman Work Phone: [facility] 250 DO Work Phone: 12-19-2020 Pfizer-BioNTech COVI D-19 Vacc 30 MCG/0.3ML Intramuscular Suspension Andrei Wiseman Work Phone: [facility] 12-10-2020 Fluzone High-Dose Quadrivalent 0.7 ML Intramuscular Suspension Prefilled Syringe Andrei Wiseman Work Phone: [facility] 250 DO Work Phone: 12-10-2020 influenza, high dose seasonal, preservative-free Delilah Turner APRN-BAND SAW MARKER Work Phone: [facility] 04-22-2020 Pfizer-BioNTech COVI D-19 Vacc 30 MCG/0.3ML Intramuscular Suspension Andrei Wiseman Work Phone: [facility] 04-07-2020 SARS-CoV-2 (COVID-19 ) mRNA BNT-162b2 vax Allyson SALEEM [facility] 04-01-2020 Pfizer-BioNTech COVI D-19 Vacc 30 MCG/0.3ML Intramuscular Suspension Andrei Wiseman Work Phone: [facility] 03-10-2020 SARS-CoV-2 (COVID-19 ) mRNA BNT-162b2 cindyx Allyson SALEEM [facility] 11-11-2019 AS03 adjuvant Andrei Wiseman MD Work Phone: [facility] 11-11-2019 Fluad Quadrivalent 0 .5 ML Intramuscular Prefilled Syringe Andrei Wiseman Work Phone: [facility] 11-11-2019 Seasonal trivalent influenza vaccine, adjuvanted, preservative free Andrei Wiseman MD Work Phone: [facility] 12-11-2018 Influenza, injectabl e, Madin [place] Canine Kidney, quadrivalent with preservative Andrei Walker Defrance Work Phone: [facility] 12-11-2018 Influenza, injectabl e, Madin [place] Canine Kidney, preservative free, quadrivalent Andrei Wiseman MD Work Phone: [facility] 11-24-2017 AS03 adjuvant Andrei Wiseman MD Work Phone: [facility] 11-24-2017 influenza virus vacc ine, unspecified formulation Andrei Wiseman MD Work Phone: [facility] 11-24-2017 pneumococcal polysaccharide vaccine, 23 valent Andrei Formanrance Work Phone: [facility] 11-24-2017 Seasonal trivalent influenza vaccine, adjuvanted, preservative free Andrei Walker Defrance Work Phone: [facility] 11-16-2016 influenza virus vacc ine, unspecified formulation Andrei Wiseman MD Work Phone: [facility] 11-16-2016 influenza, high dose seasonal, preservative-free Andrei Formanrance Work Phone: [facility] 11-16-2016 pneumococcal conjuga te vaccine, 13 valent Andrei Walker Defrance Work Phone: [facility] 11-20-2014 influenza, injectabl e, quadrivalent, preservative free Andrei Walker Defrance Work Phone: [facility] 11-11-2014 influenza virus vacc ine, unspecified formulation Andrei Wiseman MD Work Phone: [facility] 11-11-2014 influenza, high dose seasonal, preservative-free Andrei Walker Defrance Work Phone: [facility] [address] DO Work Phone: 01-10-2014 influenza virus vacc ine, unspecified formulation Andrei Wiseman MD Work Phone: [facility] 01-10-2014 influenza, high dose seasonal, preservative-free Andrei Walker Defrance Work Phone: [facility] 250 DO Work Phone: 07-26-2012 pneumococcal polysaccharide vaccine, 23 valent Andrei Walker Defrance Work Phone: [facility] 250 DO Work Phone: Payers Date Payer Category Payer Self-pay [id number] 2018 Commercial Managed C are - POS [employer] [id number] 2018 Medicare supplementa l policy (as second payer) [employer] SENIOR SUPPLEMENT [id number] 2018 Private Health Insurance [id number] .[id number] 2010 Medicare [id number]. 1.13.647 .[id number] 1959 Medicare [id number] 1959 Private Health Insurance [facility] [id number] 1945 Unknown [id number] 2.16.840.1.159320.3.579 .2.593 1945 Unknown [id number] 2.16.840.1.903386.3.579 .2.593 1945 Unknown [id number] 2.16.840.1.289857.3.579 .2.593 1945 Unknown [id number] 2.16.840.1.422725.3.579 .2.593 1945 Unknown [id number] 2.16.840.1.273872.3.579 .2.593 1945 Unknown [id number] 2.840.1.698035.3.579 .2.593 1945 Unknown [id number] 2.16.840.1.267839.3.579 .2.1068 1945 Unknown [id number] 2.840.1.328316.3.579 .2.1068 1945 Unknown [id number] 2.16.840.1.941443.3.579 .2.1068 1945 Unknown [id number] 2.840.1.004074.3.579 .2.356 1945 Unknown [id number] 2.16840.1.074412.3.579 .2.356 1945 Unknown [id number] 2.16840.1.757422.3.579 .2.356 1945 Unknown [id number] 2.16840.1.817239.3.579 .2.356 1945 Unknown [id number] 2.16840.1.494656.3.579 .2.356 1945 Unknown [id number] 2.16.840.1.336485.3.579 .2.356 1945 Unknown [id number] 2.16.840.1.595767.3.579 .2.356 1945 Unknown [id number] 2.16.840.1.758490.3.579 .2.128 1945 Unknown [id number] 2.16.840.1.615610.3.579 .2.128 1945 Unknown [id number] 2.16.840.1.828809.3.579 .2.1285 1945 Unknown [id number] 2.16.840.1.899134.3.579 .2.727 1945 Unknown [id number] 2.16840.1.595700.3.579 .2.72 1945 Unknown [id number] 2.16.840.1.937440.3.579 .2.727 1945 Unknown [id number] 2.16.840.1.618324.3.579 .2.1285 1945 Unknown [id number] 2.16.840.1.915043.3.579 .2.128 1945 Unknown [id number] 2.16840.1.903024.3.579 .2.128 1945 Unknown [id number] 2.16.840.1.019450.3.579 .2.128 1945 Unknown [id number] 2.16.840.1.149286.3.579 .2.1285 1945 Unknown [id number] 2.16.840.1.178909.3.579 .2.1285 1945 Unknown [id number] 2.16.840.1.045526.3.579 .2.1285 1945 Unknown [id number] 2.16.840.1.111469.3.579 .2.1285 1945 Unknown [id number] 2.840.1.261771.3.579 .2.1285 1945 Unknown [id number] 2.840.1.878175.3.579 .2.1285 1945 Unknown [id number] 2.840.1.981288.3.579 .2.1285 1945 Unknown [id number] 2.840.1.613147.3.579 .2.1285 1945 Unknown [id number] 2.0.1.314618.3.579 .2.1285 1945 Unknown [id number] 2.0.1.097199.3.579 .2.1285 1945 Unknown [id number] 2.840.1.405844.3.579 .2.1285 1945 Unknown [id number] 2.0.1.251617.3.579 .2.1285 1945 Unknown [id number] 2.840.1.020745.3.579 .2.1285 1945 Unknown [id number] 2.840.1.397622.3.579 .2.1285 1945 Unknown [id number] 2.840.1.037084.3.579 .2.1285 1945 Unknown [id number] .840.1.382115.3.579 .2.1285 1945 Unknown [id number] 2.840.1.675760.3.579 .2.1285 1945 Unknown [id number] 2.840.1.712261.3.579 .2.1285 1945 Unknown [id number] 2.16.840.1.956222.3.579 .2.1285 1945 Unknown [id number] 2.16.840.1.422361.3.579 .2.1285 1945 Unknown [id number] 2.16.840.1.748224.3.579 .2.1285 1945 Unknown [id number] 2.16.840.1.051432.3.579 .2.1285 1945 Unknown [id number] 2.16.840.1.341509.3.579 .2.1285 1945 Unknown [id number] 2.16840.1.092732.3.579 .2.1285 1945 Unknown [id number] 2.840.1.717328.3.579 .2.1285 1945 Unknown [id number] 2.840.1.072420.3.579 .2.1285 1945 Unknown [id number] 2.840.1.274533.3.579 .2.1285 1945 Unknown [id number] 2.840.1.801597.3.579 .2.1285 1945 Unknown [id number] 2.840.1.094892.3.579 .2.1285 1945 Unknown [id number] 2.840.1.274337.3.579 .2.1285 1945 Unknown [id number] 2.16840.1.802902.3.579 .2.1285 1945 Unknown [id number] 2.16840.1.550133.3.579 .2.1245 1945 Unknown [id number] 2.16840.1.958474.3.579 .2.1245 1945 Unknown [id number] 2.16840.1.957987.3.579 .2.727 1945 Unknown [id number] 2.16.840.1.773238.3.579 .2.1244 1945 Unknown [id number] 2.16.840.1.446148.3.579 .2.1244 1945 Unknown [id number] 2.16.840.1.334304.3.579 .2.1244 1945 Unknown [id number] 2.16.840.1.365701.3.579 .2.1244 Medicare [id number] Unknown Unknown HCAP/HFA/FAP Active [id number] Unknown [id number] 2.16.840.1.707233.3.579 .2.531 Unknown [id number] 2.16.840.1.022580.3.579 .2.531 Unknown [id number] 2.16.840.1.436253.3.579 .2.531 Unknown [id number] 2.16.840.1.167208.3.579 .2.531 Social History Date Type Detail Facility Start: 02-21-2020 End: 01-17-2023 Occasional alcohol use Occasional alcohol use [facility] 250 DO Work Phone: Comment on above: Occasional soda 3 A WEEK OCCASIONAL TEA; Start: 1945 Sex Assigned At Female [facility] Start: 01-19-2022 End: 09-13-2022 Tobacco smoking status Never smoked tobacco (finding) [facility] Start: 01-01-2022 Tobacco smoking status Never [facility] Start: 02-21-2020 End: 01-17-2023 Sex Assigned At Female [facility] Start: 01-19-2022 End: 01-14-2023 Tobacco use and exposure Smokeless tobacco non-user [facility] Work Phone: Start: 01-17-2023 Alcohol intake Current drinke r of alcohol (finding) [facility] Work Phone: Start: 01-17-2023 Alcohol Comment almost none [facility] Work Phone: Start: 1945 Sex Assigned At Not on file [facility] Work Phone: Start: 01-07-2023 End: 12-13-2023 Exposure to SARS-CoV-2 (event) Not sure [facility] Start: 02-21-2023 End: 08-01-2024 Alcohol intake Lifetime non-drinker (finding) [facility] Work Phone: Start: 01-25-2024 End: 08-08-2024 Alcoholic beverage intake Current non-drinker of alcohol (finding) [employer] Start: 09-12-2014 End: 11-13-2018 Sex Female (finding) [employer] Sexual Orientation [facility] Goals Date Patient Goal Desired Activity /State Personal health goal Comment on above: Formatting of this n ote might be different from the original. Evaluation of progress towards goal: return home independent like prior to admission Functional Status Date Assessment Result Facility 09-16-2023 Functional Status N/A [facility] 09-13-2022 Functional Status N/A [facility] Clinical Notes 10-08-2020 to 11-02-2024 Telephone Encounter - Olinda Elena [facility] - 11/02/2024 6:24 AM EDTTelephone Encounter - Olinda Elena [facility] - 11/02/2024 6:24 AM Payton Elena [facility] - 10/10/2024 2:00 PM EDTPatient Instructions Note Date & Type Note Facility 11-02-2024 Miscellaneous Notes Electronic refill request received. Updated script sent to [facility] per request. Warfarin 1 mg tabs take 2-3 tabs PO daily as directed by [id number] RF: 1 per CPA with Yvonne Haas MD. Olinda Elena PharmD, [facility] November 02, 2024 8:24 AM [facility] 11-02-2024 Telephone encounter Note Electronic refill request received. Updated script sent to [facility] per request. Warfarin 1 mg tabs take 2-3 tabs PO daily as directed by [id number] RF: 1 per CPA with Yvonne Haas MD. Olinda Elena PharmD, [facility] November 02, 2024 8:24 AM [facility] 10-10-2024 History of Present illness Narrative 15 minute donf-of-miqh follow-up anticoagulation appointment. INR performed in office per protocol. INR 1.8 (goal range: 2.0-3.0). Patient reports: Taking warfarin dosing as documented. Missed or extra doses of warfarin: YES Held x4 days for procedure that was cancelled Changes to medications: YES Completed doxycyline 2 weeks ago + 2 doses of fluconazole--> Explains INR being 2.2 despite holding Changes to lifestyle (diet / alcohol / smoking / activity): No Recent emergency department visit / hospitalization / health changes / new contraindication to current anticoagulant: YES INR was 2.2 on [place] [facility] [place] multiple days-- likely due to infection and DDI that we were not aware of. Reminded patient to call with any medication changes or procedures planned Had UTI week prior to cancelled procedure Signs/symptoms of bruising/bleeding or clotting or any intolerable adverse events: No Upcoming procedures: YES 11/15/24- urology will need warfarin held x5 days. Cardiology cleared 09/20/24. Will still be valid for November date Anticoagulant prescription needed: No Seen referring provider in the last year Duration of therapy reviewed Assessment: INR is slightly low due to held dosing. We will boost x1, then resume previous stable dose Plan: Patient instructed to increase to warfarin 3 mg 10/10, then resume 2 mg daily. Check INR in 4 week(s). Patient verbalizes understanding of anticoagulant dosing instructions and information discussed. Dosing regimen, counseling, and follow-up appointment were provided to the patient. Patient reminded to call with questions or any medication changes. Patient instructed to seek medical attention if any major bleeding/bleeding that persists or worsens. Patient could benefit from [facility] pill packaging and patient is agreeable for referral to be sent: No Olinda Elena RPH 10/10/24 1441 documented in this encounter [facility] Hospital Discharge instructions Patient Education 09/17/2024 [...] including vitamins, herbs, eye drops, creams, and crci-duk-fjfvyza medicines. Any problems you or family members [...] provider tells you to take them. Taking vjkj-ytc-jstedyz medicines, vitamins, herbs, and supplements. Tests You [...] Follow these instructions at home: Medicines Take vipt-fdx-ouuonyr and prescription medicines only as told by [...] provider. Document Revised: 10/07/2021 Document Reviewed: 09/05/2020 [employer] Patient Education 2023 [employer] 09/17/2024 11:06:38 Urethral Dilation Urethral Dilation Urethral [...] including vitamins, herbs, eye drops, creams, and muzo-lei-rerkvet medicines. Any problems you or family members [...] unless your provider tells you to. Taking mqfo-wol-ujgpamj medicines, vitamins, herbs, and supplements. General instructions [...] Follow these instructions at home: Medicines Take lasm-hvi-xlavyrs and prescription medicines only as told by [...] actions to prevent or treat constipation: ?Take guwj-all-dybcyni or prescription medicines. ?Eat foods that are [...] provider. Document Revised: 11/18/2022 Document Reviewed: 11/18/2022 [employer] Patient Education 2023 [employer]. 09/17/2024 11:02:54 Dietary Guidelines to Help Prevent [...] include: ?8 oz (237 mL) of milk, kcgmsxb-yvpqgmfmfxzr-ivwjr milk, and calcium-fortifiedfruit juice. Calcium-fortified means that [...] ?Spinach (cooked), rhubarb, beets, sweet potatoes, and Montenegrin chard. ?Peanuts. ?Potato chips, kazakh fries, and baked potatoes with skin on. ?Nuts and nut products. ?Chocolate. If you regularly take a diuretic medicine, make sure to eat at least 1 or 2 servings of fruits or vegetables that are high in potassium each day. These include: ?Avocado. ?Banana. ?[place], prune, carrot, or tomato juice. ?Baked potato. [...] magnesium, fish oil, or vitamin B6. Take rrub-ayw-eysmkfh and prescription medicines only as told by [...] Casseroles. Pizza. Lasagna. Frozen meals. Potato chips. Chinese fries. The items listed above may not [...] provider. Document Revised: 05/06/2022 Document Reviewed: 05/06/2022 [employer] Patient Education 2023 [employer]. Follow Up Care 09/16/2023 11:13:59 With:HARPER DE LA ROSA, Allyson Montenegro, URL Address: [address] [place] [id number] When: Unknown Comments:sched cysto/UD [facility] 09-17-2024 Note Patient Education Nephrology Dietary [...] ? 8 oz (237 mL) of milk, mqenovm-zcrgopxvijnz-mfole milk, and calcium-fortifiedfruit juice. Calcium-fortified means that [...] Spinach (cooked), rhubarb, beets, sweet potatoes, and Montenegrin chard. ? Peanuts. ? Potato chips, kazakh fries, and baked potatoes with skin on. ? Nuts and nut products. ? Chocolate. ??? If you regularly take a diuretic medicine, make sure to eat at least 1 or 2 servings of fruits or vegetables that are high in potassium each day. These include: ? Avocado. ? Banana. ? [place], prune, carrot, or tomato juice. ? Baked [...] fish oil, or vitamin B6. ??? Take hzsl-vbb-ealaydx and prescription medicines only as told by your health (more content not included)... [facility] 09-12-2024 History of Present illness Narrative 15 minute hyiu-hd-wnfx follow-up anticoagulation appointment. INR performed in office [...] RPH 09/12/24 1404 documented [email or web address] History of Present illness Narrative 15 minute wsiz-wj-xanj follow-up anticoagulation appointment. INR performed in office [...] RPH 08/15/24 1343 documented in this encounter [facility] 08-08-2024 History of Present illness Narrative Subjective [...] Do you have a durable power of patent prosecution attorney?: (!) No Cognitive Screening Do you [...] for Medicare annual wellness exam Paroxysmal A-fib ([facility]) Rhythm controlled. 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 Yeast infection - clotrimazole-betamethasone (LOTRISONE) cream; [...] after 6 mo documented in this encounter [facility] 08-03-2024 Miscellaneous Notes Patient was on an antibiotic last week. She now believes she has a yeast infection. Patient asking if medication can be sent to [facility]. 1 dose of diflucan ordered. documented in this encounter [facility] 08-03-2024 Telephone encounter Note Patient was on an antibiotic last week. She now believes she has a yeast infection. Patient asking if medication can be sent to [facility]. [facility] 08-03-2024 Telephone encounter Note 1 dose of diflucan ordered. [facility] 08-01-2024 History of Present illness Narrative Patient [...] in office today documented in this encounter [facility] Work Phone: 07-26-2024 History of Present illness Narrative Received BPA for DDI between warfarin and Medrol Dosepack. Dose and duration not expected to significantly impact INR, no warfarin dose adjustments at this time. Also prescribed Augmentin which does not interact with warfarin. Heriberto Parra RPH 07/26/24 1614 documented in this encounter [facility] 07-26-2024 History of Present illness Narrative [id number] [facility] [id number] Patient: Eduardo Howard Date of : 1945 [...] List Items Addressed This Visit Paroxysmal A-fib ([facility]) (Chronic) Relevant Medications metoprolol tartrate (LOPRESSOR) 25 mg tablet Pulmonary emboli (CMS-HCC) (Chronic) Other Visit Diagnoses Rhinopharyngitis - Primary [...] Diagnosis Date Arthritis Atrial fibrillation Bowel obstruction ([facility]) Chronic diastolic congestive heart failure ([facility]) 03/09/2019 Chronic kidney disease H/O gastric bypass HL (hearing loss) left hearing aid Hypertension Pulmonary embolism ([facility]) Shortness of breath Visual impairment glasses Past Surgical History: Procedure Laterality Date BREAST BIOPSY Right 2006 STEREOTACTIC BX BENIGN CARDIAC CATHETERIZATION CATARACT EXTRACTION COLONOSCOPY EGD N/A 03/05/2019 Performed by Lonnie Fields DO at [facility] EGD N/A 02/08/2019 Performed by Lonnie Fields DO at [facility] GASTRIC BYPASS INJECTION STEROID INTERMEDIATE JOINT UPPER Right 05/16/2024 Performed by Matthew Rapp MD at [facility] LAPAROSCOPIC CHOLECYSTECTOMY N/A 02/02/2019 Performed by Lonnie Fields DO at [facility] LITHOTRIPSY PANNICULECTOMY TONSILLECTOMY TOOTH EXTRACTION TUBAL LIGATION [...] JEROME QUICK MD documented in this encounter [facility] 07-25-2024 History of Present illness Narrative HPI [...] Limited 7. Sick sinus syndrome (Multi) 8. assisted current use of anticoagulant therapy 9. PVC [...] discussion and plan. documented in this encounter [facility] Work Phone: 07-25-2024 Instructions Diane Hwang [...] be sent through Care Everywhere.Heart Healthy Diet (Scottish)documented in this encounter [facility] Work Phone: 07-18-2024 History of Present illness Narrative 15 minute vurz-cw-ibhx follow-up anticoagulation appointment. INR performed in office [...] RPH 07/18/24 1345 documented in this encounter [facility] 06-19-2024 History of Present illness Narrative 15 minute wvkt-kz-mvtc follow-up anticoagulation appointment. INR performed in office [...] RPH 06/19/24 0913 documented in this encounter [facility] 06-07-2024 History of Present illness Narrative 15 minute cmhz-os-jfnr follow-up anticoagulation appointment. INR performed in office [...] that persists or worsens. Olinda Elena RPH 06/07/24 1428 documented in this encounter [facility] 05-18-2024 History of Present illness Narrative 15 minute qlgw-ib-dfkx follow-up anticoagulation appointment. INR performed in office [...] RPH 05/18/24 1430 documented in this encounter [facility] 05-09-2024 History of Present illness Narrative 15 minute rkvu-jt-zrsa follow-up anticoagulation appointment. INR performed in office [...] bleeding/bleeding that persists or worsens. Olinda Elena [facility] 05/09/24 1343 documented in this encounter [facility] 04-30-2024 History of Present illness Narrative 15 minute clbr-cl-zrwr follow-up anticoagulation appointment. INR performed in office [...] RPH 04/30/24 1309 documented in this encounter [facility] 04-16-2024 History of Present illness Narrative 15 minute sgfy-im-bnyw follow-up anticoagulation appointment. INR performed in office [...] RPH 04/16/24 1140 documented in this encounter [facility] 03-26-2024 History of Present illness Narrative 15 minute aeaa-yh-sqtv follow-up anticoagulation appointment. INR performed in office [...] RPH 03/26/24 1338 documented in this encounter [facility] 03-05-2024 History of Present illness Narrative 15 minute dnrz-hf-galu follow-up anticoagulation appointment. INR performed in office [...] mg 03/05, then decrease to 1.25 mg Tue/Th/Sat and 2.5 mg AOD. Check INR in 2.5 week(s). Patient verbalizes understanding of anticoagulant dosing instructions and information discussed. Dosing regimen, counseling, and follow-up appointment were provided to the patient. Patient reminded to call with questions or any medication changes. Patient instructed to seek medical attention if any major bleeding/bleeding that persists or worsens. Olinda Elena RPH 03/05/24 1152 documented in this encounter [facility] 02-20-2024 Note XR CHEST 2 VWS PROCEDURE: CHEST, TWO VIEWS (PA and Lateral), 02/20/2024 12:27 PM CLINICAL INDICATION: 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 use; Paroxysmal atrial fibrillation ([facility]) COMPARISON: Chest 2 views 10/23/2020 IMPRESSION: 1. No acute cardiopulmonary disease. 2. Cardiac silhouette is mildly enlarged, stable. No pulmonary vascular congestion. Finalized by Osbaldo Oconnor MD on 02/20/2024 1:42 PM [facility] 02-20-2024 History of Present illness Narrative 15 minute owfw-as-rdum follow-up anticoagulation appointment. INR performed in office [...] RPH 02/20/24 1215 documented in this encounter [facility] 02-02-2024 History of Present illness Narrative 15 minute ytxw-yh-ekry follow-up anticoagulation appointment. INR performed in office [...] RPH 02/02/24 1121 documented in this encounter [facility] 01-13-2024 History of Present illness Narrative 15 minute yslo-ag-xhtq follow-up anticoagulation appointment. INR performed in office [...] RPH 01/13/24 1159 documented in this encounter [facility] 12-30-2023 History of Present illness Narrative 15 minute pqmd-da-outj follow-up anticoagulation appointment. INR performed in office [...] RPH 12/30/23 1132 documented in this encounter [facility] 12-23-2023 History of Present illness Narrative 15 minute gdhu-ai-zfmn follow-up anticoagulation appointment. INR performed in office [...] RPH 12/23/23 1123 [facility] 12-13-2023 History of Present illness Narrative Subjective [...] currently under control on losartan and spironolactone 4-qsla-njgbdnz intolerance leading to significant bradycardia. Will avoid [...] benign 6. 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 use 9. Never smoked cigarettes 10. BMI 33.0-33.9,adult Scribe Attestation By signing my name below, Silvia Esparza LPN, Scribe attest that this documentation has [...] discussion and plan. documented in this encounter [facility] Work Phone: 12-13-2023 Instructions Silvia Fowler [...] up per routine documented in this encounter [facility] Work Phone: 12-09-2023 History of Present illness Narrative 15 minute hrre-cg-oezo follow-up anticoagulation appointment. INR performed in office [...] RPH 12/09/23 1125 documented in this encounter [facility] 12-01-2023 Hospital Discharge instructions Additional Instructions Please follow-up at the Coumadin clinic and discussed that your INR here was subtherapeutic at 1.6. [facility] Work Phone: 11-30-2023 History of Present illness Narrative 15 minute gydw-gp-yvrk follow-up anticoagulation appointment. INR performed in office [...] RPH 11/30/23 1552 documented in this encounter [facility] 11-18-2023 History of Present illness Narrative 15 minute lrqe-bu-gugz follow-up anticoagulation appointment. INR performed in office [...] RPH 11/18/23 1138 documented in this encounter [facility] 11-11-2023 History of Present illness Narrative 15 minute rmzv-po-zkxs follow-up anticoagulation appointment. INR performed in office [...] RPH 11/11/23 1059 documented in this encounter [facility] 11-08-2023 History of Present illness Narrative 15 minute ezcy-sr-nnky follow-up anticoagulation appointment. INR performed in office [...] RPH 11/08/23 0934 documented in this encounter [facility] 11-04-2023 History of Present illness Narrative 15 minute tbyn-cn-mzkt follow-up anticoagulation appointment. INR performed in office [...] major bleeding/bleeding that persists or worsens. Adi aWtters RPH 11/04/23 1322 documented in this encounter [facility] 10-31-2023 History of Present illness Narrative 15 minute sxwg-cr-qect follow-up anticoagulation appointment. INR performed in office [...] RPH 10/31/23 1619 [facility] History of Present illness Narrative 30 minute lcxd-sa-duon new anticoagulation appointment. INR performed in office [...] list up-to-date Communication [x] Notifying [facility] of any major changes with health, diet, medications, recent hospitalizations or upcoming procedures and having patient notify other providers that they are on warfarin Warfarin and diet concerns [x] Vitamin K effects Lifestyle [x] Alcohol consumption affect on INR [x] Tobacco use affect on INR Adi Watters RPH 10/28/23 1428 documented in this encounter [facility] 10-24-2023 History of Present illness Narrative [facility] Medication Therapy Management received a new referral from Dr. Jacquelin Haas on 10/24/2023 at 1:33 pm. The information below is outlined from the referral: Demographics Eduardo Howard 1945 female [facility] clinic location / home health agency: [facility] Anticoagulation Details Indication: Paroxysmal Atrial Fibrillation Severe [...] be discussed in depth during the initial mptj-ca-zucw visit with a [facility] clinical pharmacist and/or during the initial phone call during home health. Pertinent information: Patient is a 78 yof with PMH atrial fibrillation (on Eliquis), CKD, chronic diastolic CHF, h/o gastric bypass, hearing loss, HTN, and PE. Per CareEverywhere, on 10/10 it was noted that patient sent in the wrong paperwork for [employer] patient assistance and would run out before she gets approved. She was provided samples at that time. Later that same day note states that she was not approved from [employer]. Note on 10/16 states that patient is ok with switching to warfarin and would like to use [facility]. No dosing nor tablet strength is provided on fax. Her predicted CHADS-VASc score is 7 (age-2, sex-1, CHF-1, HTN-1, hx VTE-2) so bridging would be recommended for any procedures. Called Dr. Haas's office (P: [phone]) at [facility]. Left VM on nurse's line requesting a call back to confirm that warfarin has not yet been prescribed and if patient can get more Eliquis samples for bridging to warfarin. Noted that technical proposal writer calculated a high CHADS-VASc score and that bridging would likely be preferred. Called patient at [phone] (home) 10/25/23 11:50 AM and she reports [...] 5 mg daily tonight. Script sent to [facility] in [place] with request for it to be filled today. Patient scheduled for initial INR appt at [facility] on Tue10/28/23. Alisa Hamilton RPH 10/25/23 1208 Mamta from [facility] (P: [phone], option 4). She is returning a call [...] Dr. Haas know plan. Informed her that technical proposal writer will return a call to patient and advise her that bridging with Eliquis is not needed. Called patient 1:26 PM and advised her to stop Eliquis when she starts taking warfarin. She v/u. Alisa Hamilton RPH 10/25/23 1327 documented in this encounter [facility] 09-16-2023 Hospital Discharge instructions Patient Education 09/16/2023 [...] include: ?8 oz (237 mL) of milk, bymmoko-cmdjuvdxmwby-zwhqr milk, and calcium-fortifiedfruit juice. Calcium-fortified means that [...] ?Spinach (cooked), rhubarb, beets, sweet potatoes, and Montenegrin chard. ?Peanuts. ?Potato chips, kazakh fries, and baked potatoes with skin on. ?Nuts and nut products. ?Chocolate. If you regularly take a diuretic medicine, make sure to eat at least 1 or 2 servings of fruits or vegetables that are high in potassium each day. These include: ?Avocado. ?Banana. ?[place], prune, carrot, or tomato juice. ?Baked potato. [...] magnesium, fish oil, or vitamin B6. Take xidl-hsq-rajvuym and prescription medicines only as told by [...] Casseroles. Pizza. Lasagna. Frozen meals. Potato chips. Chinese fries. The items listed above may not [...] provider. Document Revised: 05/06/2022 Document Reviewed: 05/06/2022 [employer] Patient Education 2022 [employer]. Follow Up Care 09/13/2022 11:22:10 With:HARPER DE LA ROSA, Allyson Montenegro, URL Address: [address] [place] [address] [place] [address]- When: Unknown [facility] 08-04-2023 History of Present illness Narrative Images from the original note were not included. [id number] [facility] [id number] Subjective: Eduardo Howard is a 77 y.o. female who presents for a Medicare Annual Wellness exam. The following portions of the patient's history were reviewed and updated as appropriate: Health Risk Assessment, allergies, past medical history, past surgical history, social history, family history, and immunization history Accompanied by: self History Provided By: self Language and Other Communication Barriers: Primary Language Spoken: Scottish Highest Level of Education Completed: high school [...] Do you have a durable power of patent prosecution attorney?: (!) No Fall Risk Fall Risk [...] Problem List Diagnosis Date Noted Acoustic neuroma ([facility]) 08/04/2023 Preoperative clearance 11/11/2020 Essential hypertension 03/03/2020 Chronic diastolic congestive heart failure ([facility]) 03/09/2019 Pulmonary emboli ([facility]) 03/03/2019 Shortness of breath 02/16/2019 PUD (peptic ulcer disease) 02/08/2019 Paroxysmal A-fib ([facility]) 02/01/2019 Nephrolithiasis 07/21/2017 H/O gastric bypass 07/21/2017 Past Medical History: Diagnosis Date Arthritis Atrial fibrillation Bowel obstruction ([facility]) Chronic diastolic congestive heart failure ([facility]) 03/09/2019 Chronic kidney disease H/O gastric bypass HL (hearing loss) left hearing aid Hypertension Pulmonary embolism ([facility]) Shortness of breath Visual impairment glasses Past Surgical History: Procedure Laterality Date BREAST BIOPSY Right 2006 STEREOTACTIC BX BENIGN CARDIAC CATHETERIZATION CATARACT EXTRACTION COLONOSCOPY EGD N/A 03/05/2019 Performed by Lonnie Fields DO at [facility] EGD N/A 02/08/2019 Performed by Lonnie Fields DO at [facility] GASTRIC BYPASS LAPAROSCOPIC CHOLECYSTECTOMY N/A 02/02/2019 Performed by Lonnie Fields DO at [facility] LITHOTRIPSY PANNICULECTOMY TONSILLECTOMY TOOTH EXTRACTION TUBAL LIGATION [...] trying lose weight documented [facility] this encounter [email or web address] Instructions Andrei Wiseman MD - 08/04/2023 [...] services: Not applicable documented in this encounter [facility] 05-11-2023 Miscellaneous Notes [facility] requesting refill of Pantoprazole documented in this encounter [facility] 05-11-2023 Telephone encounter Note [facility] requesting refill of Pantoprazole [facility] 03-01-2023 Evaluation + Plan note Associated Problem(s): BMI 34.0-34.9,adult Reviewed the merits of healthy lifestyle choices on overall cardiovascular health. 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 CHADS VASc [...] of the month documented in this encounter [facility] Work Phone: 03-01-2023 Evaluation + Plan [...] Maintained on magnesium, Most recent potassium 4.9 [facility] Work Phone: 03-01-2023 Evaluation + Plan note Associated Problem(s): Paroxysmal atrial fibrillation (CMS/HCC) EKG in office [facility]em[facility], underlying sinus rhythm January 2023 Holter no recurrent PAF [facility] Work Phone: 03-01-2023 Evaluation + Plan note Associated Problem(s): Mild CAD 2014 cardiac cath trivial coronary artery disease September 2021 MPI no ischemia FC III fatigue and shortness of breath Daily activity less than 4 METS due to symptoms [facility] Work Phone: 03-01-2023 Evaluation + Plan note Associated Problem(s): Essential hypertension, benign optimal off high-dose Toprol [facility] Work Phone: 03-01-2023 Evaluation [...] afford Jardiance: Jan 2023 QRS 104 [facility] Work Phone: 03-01-2023 Evaluation + Plan note Associated Problem(s): 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 use Amiodarone start date September 07, 2021 EKG in office [employer], QTc 474 Surveillance testing has been scheduled towards the end of the month [facility] Work Phone: 03-01-2023 History [...] no prior syncopal episodes. She denies any huho-xjz-kksdili medications, no energy drinks, no diet pills. [...] date September 07, 2021 EKG in office [employer], QTc 474 Surveillance testing has been scheduled [...] Maintained on magnesium, Most recent potassium 4.9 assisted current use of anticoagulant therapy CHADS VASc [...] Dr. Jones after testing Delilah Turner MSN, LUCI, PMHNP-[facility] Please excuse any errors in grammar or translation related to this dictation. Voice recognition software was utilized to prepare this document. documented in this encounter [facility] Work Phone: 03-01-2023 Instructions LUCI Guido [...] Jones after testing documented in this encounter [facility] Work Phone: 02-22-2023 Evaluation + Plan note Associated Problem(s): BMI 34.0-34.9,adult Reviewed the merits of healthy lifestyle choices on overall cardiovascular health. [facility] Work Phone: 02-22-2023 Evaluation + Plan note Associated Problem(s): assisted current use of anticoagulant therapy CHADS VASc 5 low-dose Eliquis Unable to tolerate full dose Eliquis due to persistent vaginal bleeding [facility] Work Phone: 02-22-2023 Miscellaneous Notes Associated Problem(s): BMI 34.0-34.9,adult Reviewed the merits of healthy lifestyle choices on overall cardiovascular health. Associated Problem(s): assisted current use of anticoagulant therapy CHADS VASc [...] of the month documented in this encounter [facility] Work Phone: 02-22-2023 Evaluation + Plan [...] seen in the office in 1 week. [facility] Work Phone: 02-22-2023 Evaluation + Plan note Associated Problem(s): Paroxysmal atrial fibrillation (CMS/HCC) EKG in office sinus bradycardia January 2023 Holter no recurrent PAF [facility] Work Phone: 02-22-2023 Evaluation + Plan note Associated Problem(s): Mild CAD 2014 cardiac cath trivial coronary artery disease September 2021 MPI no ischemia [facility] Work Phone: 02-22-2023 Evaluation + Plan note Associated Problem(s): Essential hypertension, benign Optimal in office [facility] Work Phone: 02-22-2023 Evaluation + Plan note Associated Problem(s): Cardiomyopathy (CMS/HCC) HFrEF 30-35% Jan 2023 TTE ( September 2021 MPI EF 48%: August 2021 TTE 30 to 35%, 2013 cath EF 45%) Functional class II-3 stage C GDMT: High-dose Toprol - needs stopped due to profound bradycardia Losartan Aldactone Entersto: no insurance coverage, unable to afford Jardiance: Jan 2023 QRS 104 [facility] Work Phone: 02-22-2023 Evaluation + Plan note Associated Problem(s): 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 use Amiodarone start date September 07, 2021 EKG in office sinus bradycardia, QTc 383 Surveillance testing has been scheduled towards the end of the month [facility] Work Phone: 02-21-2023 History [...] towards the end of the month Cardiomyopathy ([facility]) HFrEF 30-35% Jan 2023 TTE ( September [...] 2021 MPI no ischemia Paroxysmal atrial fibrillation ([facility]) EKG in office sinus bradycardia January 2023 Holter no recurrent PAF Sick sinus syndrome ([facility]) January 2023 Holter average heart rate 46 [...] seen in the office in 1 week. assisted current use of anticoagulant therapy CHADS VASc [...] contact the office if new symptoms arise. STORE CUSTODIAN one week 3. Labs (chem6, TSH) Delilah Nathan Turner MSN, TRUNG-KM, PMHNP-[facility] Please excuse any errors in grammar or translation related to this dictation. Voice recognition software was utilized to prepare this document. documented in this encounter [facility] Work Phone: 02-21-2023 Instructions LUCI Guido [...] contact the office if new symptoms arise. STORE CUSTODIAN one week 3. Labs (chem6, TSH) documented in this encounter [facility] Work Phone: 02-13-2023 Miscellaneous Notes [facility] requesting refill of Losartan documented in this encounter [employer] 02-13-2023 Telephone encounter Note [facility] 02-01-2023 History of Present illness Narrative Images from the original note were not included. [address] [place] [id number] SUBJECTIVE: Patient ID: Eduardo Howard is a [...] Try kristina generic documented in this encounter [employer] 01-17-2023 Evaluation + Plan note Associated Problem(s): BMI 34.0-34.9,adult Reviewed the merits of healthy lifestyle choices on overall cardiovascular health. 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 Associated Problem(s): assisted current use of anticoagulant therapy CHADS VASc [...] completed July 2022 documented in this encounter [facility] Work Phone: 01-17-2023 Evaluation + Plan note Associated Problem(s): Mild CAD 2013 cardiac cath trivial coronary artery disease September 2021 MPI no ischemia [facility] Work Phone: 01-17-2023 Evaluation + Plan note Associated Problem(s): Essential hypertension, benign Optimal in office [facility] Work Phone: 01-17-2023 Evaluation + Plan [...] Entresto and initiate Jardiance if warranted. 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 STORE CUSTODIAN one month 5. 24 hour holter Delilah Turner MSN, LUCI, PMHNP-[facility] Please excuse any errors in grammar or translation related to this dictation. Voice recognition software was utilized to prepare this document. documented in this encounter [facility] Work Phone: 01-17-2023 Instructions LUCI Guido [...] contact the office if new symptoms arise. STORE CUSTODIAN one month documented in this encounter [facility] Work Phone: 09-13-2022 Hospital Discharge instructions Patient Education 09/13/2022 11:04:19 Kidney Stones, [id number] Kidney Stones Kidney stones are rock-like masses [...] Follow these instructions at home: Medicines Take reqd-yvg-jywoxor and prescription medicines only as told by [...] provider. Document Revised: 09/28/2021 Document Reviewed: 09/28/2021 [employer] Patient Education 2022 [employer]. Follow Up Care 06/09/2022 09:35:46 With:HARPER DE LA ROSA, Allyson Montenegro, URL Address: [facility] [address] [place] [phone] When: Unknown [facility] 10-08-2020 Note HNO ID: [id number] Author: Phil Brooks MD Service: ? Author Type: Physician Type: Progress Notes Filed: 10/07/2020 10:56 PM Note Text: PATIENT NAME: Hernando Howard CLINIC NO.: [id number] ATTENDING PHYSICIAN: Phil Brooks MD DATE OF [...] Breast: No palpa (more content not included)... [facility] Chief complaint Narrative - Reported SELF REFERRAL RE-ESTABLISH ISSUE WITH MEDS. [facility] [address] DO Work Phone: Chief complaint Narrative - Reported SELF REFERRAL RE-ESTABLISH ISSUE WITH MEDS. [facility] Work Phone: Evaluation + Plan note Future Appointments Appointment Date:09/16/2023 10:15:00 AM Scheduled Provider:Allyson SALEEM MD Location:[facility] Appointment Type:URO Office Visit [facility] Evaluation + Plan note Future Appointments Appointment Date:09/16/2023 10:15:00 AM Scheduled Provider:Allyson SALEEM MD Location:[facility] Appointment Type:URO Office Visit Diagnostic Tests PendingUrine Culture 09/22/22 [facility] Evaluation + Plan note Future Appointments Appointment Date:09/17/2024 10:15:00 AM Scheduled Provider:Allyson SALEEM MD Location:[facility] Appointment Type:URO Office Visit [facility] Evaluation + Plan note Future Appointments Appointment Date:10/23/2024 02:30:00 PM Scheduled Provider:Allyson SALEEM MD Location:[facility] [place] Appointment Type:URO Procedure 15 min [facility] Evaluation note No assessment inform ation available [facility] Work Phone: Evaluation note Diagnosis Paroxysmal atrial fibrillation (CMS/HCC)- Primary Atrial fibrillation 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 Cardiomyopathy, unspecified type (CMS/HCC) Mild CAD Essential hypertension, benign BMI 34.0-34.9,adult Abnormal electrocardiogram (ECG) (EKG) documented in this encounter [facility] Work Phone: Evaluation note* Diagnosis Cardiomyopathy, unspecified type (CMS/HCC) Abnormal electrocardiogram (ECG) (EKG) documented in this encounter [facility] Work Phone: Evaluation note* Diagnosis Cardiomyopathy, unspecified type (CMS/HCC) Abnormal electrocardiogram (ECG) (EKG) documented in this encounter [facility] Work Phone: Evaluation note* Diagnosis Cardiomyopathy, unspecified type (CMS/HCC)- Primary Paroxysmal atrial fibrillation (CMS/HCC) Atrial fibrillation 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 use Mild CAD Essential hypertension, benign assisted current use of anticoagulant therapy BMI 34.0-34.9,adult Sick sinus syndrome (CMS/HCC) Sinoatrial node dysfunction documented in this encounter [facility] Work Phone: Evaluation note* Diagnosis Other cardiomyopathy (CMS/HCC)- Primary Sick sinus syndrome (CMS/HCC) Sinoatrial node dysfunction Paroxysmal atrial fibrillation (CMS/HCC) Atrial fibrillation 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 Mild CAD Essential hypertension, benign BMI 34.0-34.9,adult Abnormal electrocardiogram (ECG) (EKG) documented in this encounter [facility] Work Phone: Evaluation note* Diagnosis Paroxysmal atrial fibrillation (Multi)- Primary Atrial fibrillation 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 Cardiomyopathy, unspecified type (Multi) Mild CAD Essential hypertension, benign BMI 34.0-34.9,adult Abnormal electrocardiogram (ECG) (EKG) Cardiomyopathy, unspecified type (Multi)- Primary Paroxysmal atrial fibrillation (Multi) Atrial fibrillation 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 use Mild CAD Essential hypertension, benign assisted current use of anticoagulant therapy BMI 34.0-34.9,adult Sick sinus syndrome (Multi) Sinoatrial node dysfunction Other cardiomyopathy- Primary Sick sinus syndrome (Multi) Sinoatrial node dysfunction Paroxysmal atrial fibrillation (Multi) Atrial fibrillation 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 use assisted current use of anticoagulant therapy Mild CAD Essential hypertension, benign BMI 34.0-34.9,adult Abnormal electrocardiogram (ECG) (EKG) Paroxysmal atrial fibrillation (Multi)- Primary Atrial fibrillation PVC (premature ventricular contraction) Other premature beats Mild CAD Essential hypertension, benign Dilated cardiomyopathy (Multi) Other primary cardiomyopathies Sick sinus syndrome (Multi) Sinoatrial node dysfunction assisted current use of anticoagulant therapy 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 use Never smoked cigarettes BMI 33.0-33.9,adult Obesity, Class I, BMI 30-34.9 documented in this encounter [facility] Work Phone: Evaluation note* Diagnosis Paroxysmal atrial fibrillation (Multi)- Primary Atrial fibrillation 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 Cardiomyopathy, unspecified type (Multi) Mild CAD Essential hypertension, benign BMI 34.0-34.9,adult Abnormal electrocardiogram (ECG) (EKG) Cardiomyopathy, unspecified type (Multi)- Primary Paroxysmal atrial fibrillation (Multi) Atrial fibrillation 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 use Mild CAD Essential hypertension, benign assisted current use of anticoagulant therapy BMI 34.0-34.9,adult Sick sinus syndrome (Multi) Sinoatrial node dysfunction Other cardiomyopathy- Primary Sick sinus syndrome (Multi) Sinoatrial node dysfunction Paroxysmal atrial fibrillation (Multi) Atrial fibrillation 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 Mild CAD Essential hypertension, benign BMI 34.0-34.9,adult Abnormal electrocardiogram (ECG) (EKG) Dilated cardiomyopathy (Multi) Other primary cardiomyopathies documented in this encounter [facility] Work Phone: Evaluation note* Diagnosis Paroxysmal A-fib (CMS-HCC)- Primary [facility] Diagnosis Paroxysmal A-fib (CMS-HCC)- Primary [facility]* Diagnosis Essential hypertension- Primary Unspecified essential hypertension Paroxysmal A-fib (CMS-HCC) Chronic diastolic congestive heart failure (CMS-HCC) H/O gastric bypass Nephrolithiasis Calculus of kidney [facility]* Diagnosis Routine general medical examination at a health care facility- Primary Essential hypertension Unspecified essential hypertension Paroxysmal A-fib (CMS-HCC) Chronic diastolic congestive heart failure (CMS-HCC) H/O gastric bypass Encounter for screening mammogram for malignant neoplasm of breast 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 Single subsegmental pulmonary embolism without acute cor pulmonale (CMS-HCC) [facility]* Diagnosis Atrial fibrillation, unspecified type (CMS-HCC)- Primary [facility]* Diagnosis Atrial fibrillation, unspecified type (CMS-HCC)- Primary [facility]* Diagnosis Atrial fibrillation, unspecified type (CMS-HCC)- Primary documented [facility]* Diagnosis Atrial fibrillation, unspecified type (CMS-HCC)- Primary documented [facility]* Diagnosis Paroxysmal A-fib (CMS-HCC)- Primary Paroxysmal atrial fibrillation (CMS-HCC)- Primary Atrial fibrillation documented [facility]* Diagnosis Paroxysmal A-fib (CMS-HCC)- Primary [facility]* Diagnosis Atrial fibrillation, unspecified type (CMS-HCC)- Primary documented [facility]* Diagnosis Paroxysmal A-fib (CMS-HCC)- Primary Single subsegmental pulmonary embolism without acute cor pulmonale (CMS-HCC) documented [facility]* Diagnosis Paroxysmal atrial fibrillation (Multi)- Primary Atrial fibrillation 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 use assisted current use of anticoagulant therapy Cardiomyopathy, unspecified type (Multi) Mild CAD Essential hypertension, benign BMI 34.0-34.9,adult Abnormal electrocardiogram (ECG) (EKG) Cardiomyopathy, unspecified type (Multi)- Primary Paroxysmal atrial fibrillation (Multi) Atrial fibrillation 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 use Mild CAD Essential hypertension, benign assisted current use of anticoagulant therapy BMI 34.0-34.9,adult Sick sinus syndrome (Multi) Sinoatrial node dysfunction Other cardiomyopathy- Primary Sick sinus syndrome (Multi) Sinoatrial node dysfunction Paroxysmal atrial fibrillation (Multi) Atrial fibrillation 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 use assisted current use of anticoagulant therapy Mild CAD Essential hypertension, benign BMI 34.0-34.9,adult Abnormal electrocardiogram (ECG) (EKG) Chronic systolic heart failure- Primary Essential hypertension, benign Cardiomyopathy, unspecified type (Multi) 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 use Paroxysmal atrial fibrillation (Multi) Atrial fibrillation Chronic diastolic congestive heart failure assisted current use of anticoagulant therapy PVC (premature ventricular contraction) Other premature beats BMI 32.0-32.9,adult Never smoked cigarettes Obesity, Class I, BMI 30-34.9 documented in this encounter [facility] Work Phone: Evaluation note* Diagnosis Rhinopharyngitis- Primary Acute nasopharyngitis (common cold) Paroxysmal A-fib ([facility]-HCC) Single subsegmental pulmonary embolism without acute cor pulmonale ([facility]-HCC) documented in this encounter [facility]Evaluation note* Diagnosis Paroxysmal atrial fibrillation (Multi)- Primary Atrial fibrillation 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 Cardiomyopathy, unspecified type (Multi) Mild CAD Essential hypertension, benign BMI 34.0-34.9,adult Abnormal electrocardiogram (ECG) (EKG) Cardiomyopathy, unspecified type (Multi)- Primary Paroxysmal atrial fibrillation (Multi) Atrial fibrillation 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 use Mild CAD Essential hypertension, benign 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 BMI 34.0-34.9,adult Sick sinus syndrome (Multi) Sinoatrial node dysfunction Other cardiomyopathy- Primary Sick sinus syndrome (Multi) Sinoatrial node dysfunction Paroxysmal atrial fibrillation (Multi) Atrial fibrillation 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 use assisted current use of anticoagulant therapy Mild CAD Essential hypertension, benign BMI 34.0-34.9,adult Abnormal electrocardiogram (ECG) (EKG) 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 use Paroxysmal atrial fibrillation (Multi) Atrial fibrillation documented in this encounter [facility] Work Phone: Evaluation note* Diagnosis Yeast infection- Primary documented [facility]* Diagnosis Encounter for Medicare annual wellness exam- Primary Paroxysmal A-fib (CMS-HCC) Single subsegmental pulmonary embolism without acute cor pulmonale (CMS-HCC) Chronic diastolic congestive heart failure (CMS-HCC) Essential hypertension Unspecified essential hypertension 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 Yeast infection PUD (peptic ulcer disease) Peptic ulcer, unspecified site, unspecified as acute or chronic, without mention of hemorrhage, perforation, or obstruction Hypothyroidism (acquired) Unspecified hypothyroidism [facility] Diagnosis Paroxysmal A-fib (CMS-HCC)- Primary documented [facility]* Diagnosis PUD (peptic ulcer disease) Peptic ulcer, unspecified site, unspecified as acute or chronic, without mention of hemorrhage, perforation, or obstruction documented in this [facility]* Diagnosis Paroxysmal atrial fibrillation (Multi)- Primary Atrial fibrillation 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 Cardiomyopathy, unspecified type (Multi) Mild CAD Essential hypertension, benign BMI 34.0-34.9,adult Abnormal electrocardiogram (ECG) (EKG) Cardiomyopathy, unspecified type (Multi)- Primary Paroxysmal atrial fibrillation (Multi) Atrial fibrillation 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 use Mild CAD Essential hypertension, benign 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 BMI 34.0-34.9,adult Sick sinus syndrome (Multi) Sinoatrial node dysfunction Other cardiomyopathy- Primary Sick sinus syndrome (Multi) Sinoatrial node dysfunction Paroxysmal atrial fibrillation (Multi) Atrial fibrillation 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 Mild CAD Essential hypertension, benign BMI 34.0-34.9,adult Abnormal electrocardiogram (ECG) (EKG) Cardiomyopathy, unspecified type (Multi) Chronic diastolic congestive heart failure documented in this encounter [facility] Work Phone: Evaluation note* Diagnosis Atrial fibrillation, unspecified type (CMS-HCC) documented [facility] Narrative* Patient is referred for management after long absence. In the past she was found to have trivial coronary atherosclerosis and mild impairment of left ventricular systolic function. Subsequently, though, she was lost to follow-up and she has been getting her care in [facility] from the [place] [facility] * Recently, her computer drafter became ill and she has not had any continuity of care ever since. She had been plagued by paroxysmal atrial fibrillation and it appears that the attending computer drafter placed her on flecainide. This would lead [...] diet and weight loss in the interim. [facility] 250 DO Work Phone: History of Present illness Narrative* Patient is referred for management after long absence. In the past she was found to have trivial coronary atherosclerosis and mild impairment of left ventricular systolic function. Subsequently, though, she was lost to follow-up and she has been getting her care in [facility] from the [place] [facility] * Recently, her computer drafter became ill and she has not had any continuity of care ever since. She had been plagued by paroxysmal atrial fibrillation and it appears that the attending computer drafter placed her on flecainide. This would lead [...] diet and weight loss in the interim. [facility] Work Phone: History of Present illness [...] medication regimen. She denies medication side effects. [place] [address] DO Work Phone: History of Present illness [...] medication regimen. She denies medication side effects. [facility] [employer] DO Work Phone: History of Present illness [...] medication regimen. She denies medication side effects. [facility] [employer] DO Work Phone: History of Present illness [...] merits of diet exercise and weight loss. [facility] [employer] DO Work Phone: History of Present illness Narrative* Olinda Elena, [facility] - 12/16/2023 3:15 PM EST 15 minute [id number] follow-up anticoagulation appointment. INR performed in office [...] her income and she would qualify for [employer] PAP. Application printed and encouraged patient to speak with her computer drafter about changing to [employer]. Plan: Patient instructed [...] Elena RPH 12/16/23 1449 [facility] Narrative No data available for this section [facility] Hospital Discharge instructions No data available for this section [facility] InstructionsNot on filedocumented in this encounter [facility] SystemInstructionsNot on filedocumented in this encounter [facility]* Attachments The following attachments cannot be sent through Care Everywhere. * Heart Failure, Adult ([place]ish) documented in [facility] Plynked SystemInstructionsNot on file documented in this encounterProSpring[facility] Health SystemInstructionsNot on file documented in this encounterPro[facility] SystemInstructionsNot on file documented in this encounterProMedica Health SystemInstructionsNot on file documented in this encounterProMed[facility] Health SystemInstructionsNot on file documented in this encounterProMedica Health SystemInstructionsNot on file documented in this encounterProMedica Health SystemInstructionsNot on file documented in this encounterProMedica Health SystemInstructionsNot on file documented in this encounterProMedica Health SystemInstructionsNot on file documented in this encounterProMedica Health SystemProgress note No data available for this section [facility] reason for referral (narrative)* Consultation (Routine) - Authorized Specialty Diagnoses / Procedures Referred By Jenny walker Referred To Contact Cardiology Diagnoses Sick sinus syndrome (CMS/HCC) Procedures Follow Up In Cardiology Delilah Turner APRN-CNP [facility] [facility] 2, [place] [id number] Referral ID Status Reason Start Date Expiration Date V isits Requested Visits Authorized [id number] Authorized 02/21/2023 02/21/2024 1 1 * Cardiovascular (Routine) - Authorized Specialty Diagnoses / Procedures Referred By Jenny walker Referred To Contact Diagnoses Sick sinus syndrome (CMS/HCC) Procedures ECG 12 Lead Delilah Turner APRN-CNP [facility] [facility] 2, [address] [address] Referral ID Status Reason Start Date Expiration Date V isits Requested Visits Authorized [id number] Authorized 02/21/2023 02/21/2024 1 1 [facility] Work Phone: Reason for visit Narrative* CV Imaging (Routine) - Authorized Specialty Diagnoses / Procedures Referred By Jenny walker Referred To Contact Cardiology Diagnoses Dilated cardiomyopathy (Multi) Procedures Transthoracic Echo Complete CT ECHO TTHRC R-T 2D W/WOM-MODE COMPL SPEC&COLR D Haas, Russell M, MD [facility] [facility] [address], [address] [place] [address] Phone: tel: fax: Referral ID Status Reason Start Date Expiration Date Visits Requested Visits Authorized [id number] Authorized Perform Procedure 12/13/2023 12/12/2024 1 1 [facility] Work Phone: Reason for visit Narrative* CV Imaging (Routine) - Authorized Specialty Diagnoses / Procedures Referred By Contac t Referred To Contact Cardiology Diagnoses Other cardiomyopathy Chronic diastolic congestive heart failure Procedures Transthoracic Echo Limited CT ECHO TRANSTHORC R-T 2D W/WO M-MODE REC F-UP/LMTD CT DOPPLER ECHO COLOR FLOW VELOCITY MAPPING CT DOPPLER ECHO PULSE WAVE W/SPECTRAL F-UP/LMTD STD Yvonne Haas MD [facility] [facility] [address], [address] [place] [address] Phone: tel: fax: Referral ID Status Reason Start Date Expiration Date Visits Requested Visits Authorized [id number] Authorized Perform Procedure 07/25/2024 07/25/2025 1 1 [facility] Work Phone: Summary Purpose Family History Unknown Family Member Name Dates Details Family [...] of colon: Mother(V16.0, Z80.0) Status:Active Advance Directives Advance Directive Response Recorded Date/ Time Advance [...] much easier'. * She ambulated in from without complaints. * Prior SANCHEZ with significant [...] maintenance of NSR. Amiodar[place] [facility] [place] ARIEL - baselinesVIRBRITTANY HOWARD is being seen for a 3 month follow-up of.Amiodarone Order sent [place] [facility] [place] due in April Chief Complaint and Reason for Visit Chief Complaint i48.0 z79.899 Chief Complaint I42.9;Z79.899;I49.5 Chief Complaint I42.9;Z79.899;I49.5 i48.0 z79.899 i48.0 z79.899 Chief Complaint weakness,trouble fabricio athing Reason for Referral Specialty Diagnoses / Procedures Referred By Jenny walker Referred To Contact Diagnoses 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 use Procedures ECG 12 Lead Delilah Turner APRN-BAND SAW MARKER [facility] [facility] [address], [address] [place] [address] Referral ID Status Reason Start Date Expiration Date V isits Requested Visits Authorized [id number] Authorized 03/01/2023 02/29/2024 1 1 Specialty Diagnoses / Procedures Referred By Jenny walker Referred To Contact Radiology Diagnoses Other cardiomyopathy (CMS/HCC) Paroxysmal atrial fibrillation (CMS/HCC) Essential hypertension, benign Abnormal electrocardiogram (ECG) (EKG) Procedures Nuclear Stress Test CHG MYOCARDIAL SPECT MULTIPLE STUDIES CHG MYOCARDIAL SPECT SINGLE STUDY AT REST OR STRESS Delilah Turner BUILDING INSPECTOR-BAND SAW MARKER [facility] [address], [address] [place] [address] Referral ID Status Reason Start Date Expiration Date V isits Requested Visits Authorized [id number] Pending Review 03/01/2023 02/29/2024 5 5 Specialty Diagnoses / Procedures Referred By Contac t Referred To Contact Cardiology Diagnoses Sick sinus syndrome (CMS/HCC) Paroxysmal atrial fibrillation (CMS/HCC) Procedures Holter Or Event Accounting Systems Analyst Delilah Turner, BUILDING INSPECTOR-BAND SAW MARKER [address], [address] [place] [address] Referral ID Status Reason Start Date Expiration Date V isits Requested Visits Authorized [id number] Pending Review 03/01/2023 02/29/2024 1 1 Specialty Diagnoses / Procedures Referred By Contac t Referred To Contact Cardiology Diagnoses Paroxysmal atrial fibrillation (CMS/HCC) Procedures Holter Or Event Accounting Systems Analyst Delilah Turner BUILDING INSPECTOR-BAND SAW MARKER [address], [address] [address] Referral ID Status Reason Start Date Expiration Date V isits Requested Visits Authorized [id number] Pending Review 01/17/2023 01/17/2024 1 1 Specialty Diagnoses / Procedures Referred By Contac t Referred To Contact Cardiology Diagnoses Cardiomyopathy, unspecified type (CMS/HCC) Procedures Follow Up In Cardiology Delilah Turner BUILDING INSPECTORBAND SAW MARKER [address], [address] [address] Referral ID Status Reason Start Date Expiration Date V isits Requested Visits Authorized [id number] Authorized 01/17/2023 01/17/2024 1 1 Specialty Diagnoses / Procedures Referred By Contac t Referred To Contact Diagnoses Paroxysmal atrial fibrillation (CMS/HCC) 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 use Procedures ECG 12 Lead [facility]ilah Turner [facility] [address] [facility] 2, [address] [address] Referral ID Status Reason Start Date Expiration Date V isits Requested Visits Authorized [id number] Pending Review 01/17/2023 01/17/2024 1 1 Specialty Diagnoses / Procedures Referred By Contac t Referred To Contact Cardiology Diagnoses Cardiomyopathy, unspecified type (CMS/HCC) Abnormal electrocardiogram (ECG) (EKG) Procedures Transthoracic Echo (TTE) Complete CT ECHO TRANSTHORC R-T 2D W/WO M-MODE REC F-UP/LMTD CT DOP ECHOCARD COLOR FLOW VELOCITY MAPPING CT DOP ECHOCARD PULSE WAVE W/SPECTRAL F-UP/LMTD STD Delilah Turner, BUILDING INSPECTOR-BAND SAW MARKER [facility] [address], [address] [place] [address] Referral ID Status Reason Start Date Expiration Date Visits Requested Visits Authorized [id number] Pending Review Perform Procedure 3 01/17/2024 1 1 Additional Source Comments INFORMATION SOURCE (unrecogn ized section and content) DATE CREATED AUTHOR 12/08/2020 [facility] DATE CREATED AUTHOR AUTHOR'S ORGANIZ ATION 03/13/2021 [facility] DATE CREATED AUTHOR AUTHOR'S ORGANIZ ATION 10/20/2021 [facility] DATE CREATED AUTHOR AUTHOR'S ORGANIZ ATION 01/28/2022 [facility] DATE CREATED AUTHOR AUTHOR'S ORGANIZ ATION 01/28/2022 [employer] DATE CREATED AUTHOR AUTHOR'S ORGANIZ ATION 02/03/2024 [facility] DATE CREATED AUTHOR AUTHOR'S ORGANIZ ATION 08/10/2024 [facility] DATE CREATED AUTHOR AUTHOR'S ORGANIZ ATION 09/18/2024 [facility] DATE CREATED AUTHOR AUTHOR'S ORGANIZ ATION 10/12/2024 [facility] DATE CREATED AUTHOR AUTHOR'S ORGANIZ ATION 10/12/2024 [facility] DATE CREATED AUTHOR AUTHOR'S ORGANIZ ATION 10/14/2024 [facility] DATE CREATED AUTHOR AUTHOR'S ORGANIZ ATION 10/16/2024 [facility] [employer] Attendant Teams (unrecognized sec tion and content) Team Status: Active Member Role Status Dates Andrei Wiseman MD Primary Care Provider Active Team Status: Inactive Member Role Status Dates Andrei Wiseman MD Primary Care Provider Active Jose Martin Jones MD Attending Provider Active Noodle Catalyst Maker Relationship Specialty Start Date End Date Andrei Wiseman MD [address] [place] [address] PCP - General 02/07/99 Noodle Catalyst Maker Relationship Specialty Start Date End Date Andrei Wiseman MD [address] [place] [address] PCP - General 02/07/99 Noodle Catalyst Maker Relationship Specialty Start Date End Date Andrei Wiseman MD [address] [place] [address] PCP - General 02/07/99 Team Status: Inactive Member Role Status Dates Andrei Wiseman MD Primary Care Provider Active Delilah Turner APRN Attending Provider Active Noodle Catalyst Maker Relationship Specialty Start Date End Date Andrei Wiseman MD [address] [place] [address] PCP - General 02/07/99 Noodle Catalyst Maker Relationship Specialty Start Date End Date Andrei Wiseman MD [address] [place] [address] PCP - General 02/07/99 Noodle Catalyst Maker Relationship Specialty Start Date End Date Andrei Wiseman MD [address] [place] [address] PCP - General 02/07/99 Noodle Catalyst Maker Relationship Specialty Start Date End Date Andrei Wiseman MD [address] [place] [address] PCP - General 02/07/99 Team Status: Inactive [...] December 01, 2023 End: December 01, 2023 Noodle Catalyst Maker Relationship Specialty Start Date End Date Andrei Wiseman MD PCP - General 02/07/99 Delilah Turner APRN-BAND SAW MARKER [address] [place] [address], [address] [address] PCP - MSSP ACO Attributed Provider 02/07/23 Noodle Catalyst Maker Relationship Specialty Start Date End Date Andrei Wiseman MD PCP - General 02/07/99 Delilah Turner APRN-BAND SAW MARKER [address] [place] [address] 2, [address] [address] PCP - MSSP ACO Attributed Provider 02/07/23 Noodle Catalyst Maker Relationship Specialty Start Date End Date Andrei Wiseman MD [address] [place] [address] PCP - General Family Medicine 07/27/16 Noodle Catalyst Maker Relationship Specialty Start Date End Date Andrei Wiseman MD [address] [place] [address] PCP - General Family Medicine 07/27/16 Noodle Catalyst Maker Relationship Specialty Start Date End Date Andrei Wiseman MD [address] [place] [address] PCP - General Family Medicine 07/27/16 Noodle Catalyst Maker Relationship Specialty Start Date End Date Andrei Wiseman MD [address] [place] [address] PCP - General Family Medicine 07/27/16 Noodle Catalyst Maker Relationship Specialty Start Date End Date Andrei Wiseman MD [address] [place] [address] PCP - General Family Medicine 07/27/16 Noodle Catalyst Maker Relationship Specialty Start Date End Date Andrei Wiseman MD [address] [place] [address] PCP - General Family Medicine 07/27/16 Noodle Catalyst Maker Relationship Specialty Start Date End Date Andrei Wiseman MD [address] [place] [address] PCP - General Family Medicine 07/27/16 Noodle Catalyst Maker Relationship Specialty Start Date End Date Andrei Wiseman MD [address] Provider retired 05/08/24 [place] [address] PCP - General Family Medicine 07/27/16 Noodle Catalyst Maker Relationship Specialty Start Date End Date Andrei Wiseman [facility] [address]. Provider retired 05/08/24 [place] [address] PCP - General Family Medicine 07/27/16 Noodle Catalyst Maker Relationship Specialty Start Date End Date Jerome Quick MD [address] [place] [address] PCP - General Internal Medicine 07/16/24 Noodle Catalyst Maker Relationship Specialty Start Date End Date Andrei Wiseman MD [address] [place] [address] PCP - General Family Medicine 07/25/24 Noodle Catalyst Maker Relationship Specialty Start Date End Date Jerome Quick MD [address] [place] [address] PCP - General Internal Medicine 07/16/24 Noodle Catalyst Maker Relationship Specialty Start Date End Date Jerome Quick MD [address] [place] [address] PCP - General Internal Medicine 07/16/24 Noodle Catalyst Maker Relationship Specialty Start Date End Date Andrei Wiseman MD [address] [place] [address] PCP - General Family Medicine 07/25/24 Noodle Catalyst Maker Relationship Specialty Start Date End Date Jerome Quick MD [address] [place] [address] PCP - General Internal Medicine 07/16/24 Noodle Catalyst Maker Relationship Specialty Start Date End Date Jerome Quick MD [address] [place] [address] PCP - General Internal Medicine 07/16/24 Noodle Catalyst Maker Relationship Specialty Start Date End Date eJrome Quick MD [address] [place] [address] PCP - General Internal Medicine 07/16/24 Noodle Catalyst Maker Relationship Specialty Start Date End Date Jerome Quick MD [address] [place] [address] PCP - General Internal Medicine 07/16/24 Noodle Catalyst Maker Relationship Specialty Start Date End Date Andrei Wiseman MD PCP - General Family Medicine 07/25/24 Noodle Catalyst Maker Relationship Specialty Start Date End Date Jerome Quick MD [address] [place] [id number] PCP - General Internal Medicine 07/16/24 Goals [...] use Procedures ECG 12 Lead Delilah Turner, BUILDING INSPECTOR-BAND SAW MARKER [facility] 2, [address] [address] Referral ID Status Reason Start Date Expiration Date V isits Requested Visits Authorized [id number] Pending Review 01/17/2023 01/17/2024 1 1 Specialty Diagnoses / Procedures Referred By Contac t Referred To Contact Cardiology Diagnoses Cardiomyopathy, unspecified type (CMS/HCC) Abnormal electrocardiogram (ECG) (EKG) Procedures Transthoracic Echo (TTE) Complete CT ECHO TRANSTHORC R-T 2D W/WO M-MODE REC F-UP/LMTD CT DOP ECHOCARD COLOR FLOW VELOCITY MAPPING CT DOP ECHOCARD PULSE WAVE W/SPECTRAL F-UP/LMTD STD Delilah Turner [facility] [address] [place] [address] 2, [address] [address] Referral ID Status Reason Start Date Expiration Date Visits Requested Visits Authorized [id number] Pending Review Perform Procedure 01/17/2024 1 1 Reason Comments Results ECHO Specialty Diagnoses / Procedures Referred By Contac t Referred To Contact Cardiology Diagnoses Cardiomyopathy, unspecified type (CMS/HCC) Procedures Follow Up In Cardiology Cuco Turnerfabiola Finley [facility] [address] [place] [address], [place] [phone] Referral ID Status Reason Start Date Expiration Date V isits Requested Visits Authorized [id number] Authorized 01/17/2023 01/17/2024 1 1 Reason Comments Follow-up Week per Mimi Specialty Diagnoses / Procedures Referred By Contac t Referred To Contact Cardiology Diagnoses Sick sinus syndrome (CMS/HCC) Procedures Follow Up In Cardiology Delilah Turner [facility] 2, [address] [address] Referral ID Status Reason Start Date Expiration Date V isits Requested Visits Authorized [id number] Authorized 02/21/2023 02/21/2024 1 1 Specialty Diagnoses / Procedures Referred By Contac t Referred To Contact Radiology Diagnoses Other cardiomyopathy (CMS/HCC) Paroxysmal atrial fibrillation (CMS/HCC) Essential hypertension, benign Abnormal electrocardiogram (ECG) (EKG) Procedures Nuclear Stress Test CHG MYOCARDIAL SPECT MULTIPLE STUDIES CHG MYOCARDIAL SPECT SINGLE STUDY AT REST OR STRESS Delilah Turner [facility] [address] [place] [address] 2, [address] [address] Referral ID Status Reason Start Date Expiration Date V isits Requested Visits Authorized [id number] Pending Review 03/01/2023 02/29/2024 5 5 Reason Comments Follow-up 6m Specialty Diagnoses / Procedures Referred By Contac t Referred To Contact Cardiology Diagnoses Dilated cardiomyopathy (Multi) Procedures Follow Up In Cardiology Jose Martin Jones MD McGuinn, William P, MD Retired From Practice Referral ID Status Reason Start Date Expiration Date V isits Requested Visits Authorized [id number] Authorized 05/24/2023 05/23/2024 1 1 Reason Comments Routine Check up Antidepressants and allergy pills not working anymore Reason Comments Med Refill Reason Comments Annual Exam Medicare Wellness Reason Comments Follow-up 6 month bParoxysmal atrial fibrillation (Multi) Specialty Diagnoses / Procedures Referred By Contac t Referred To Contact Cardiology Diagnoses Essential hypertension, benign Procedures Follow Up In Cardiology Yvonne Haas MD [address] [place] [address] [address], [address] [address] Phone: tel: fax: Yvonne Haas MD [address] [place] [address] [address], [address] [address] Phone: tel: fax: Referral ID Status Reason Start Date Expiration Date V isits Requested Visits Authorized [id number] Authorized 12/13/2023 12/12/2024 1 1 Reason Comments Nasal Congestion Sore Throat Cough Reason Comments EKG visit Specialty Diagnoses / Procedures Referred By Contac t Referred To Contact Diagnoses 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 use Paroxysmal atrial fibrillation (Multi) Procedures ECG 12 Lead Yvonne Haas MD [address] [place] [address] [address], [address] [address] Phone: tel: fax: Referral ID Status Reason Start Date Expiration Date V isits Requested Visits Authorized [id number] Authorized 07/25/2024 07/25/2025 1 1 Reason Onset [...] BE BASED ON THE PRIMARY CLINICAL RECORDS. 404 [employer] [facility]. provides no warranty or guarantee of the accuracy or completeness of information in this document.
--- NOTE | 2024-11-02 11:27 | PM.PRESUREVA ---
History of Present Illness History of Present Illness Chief complaint: Recurrent UTI, Right Kidney Stone Narrative: Patient presents for presurgical testing. The patient has a history of kidney stones and had a 1 year follow-up in September and a new stone was found. She was scheduled for her procedure on October 04, but her PTT was severely elevated, she does take warfarin for atrial fibrillation. The patient denies hematuria, flank pain, dysuria, fever, or any other complaints. Review of Systems ROS Narrative REVIEW OF SYSTEMS: Negative except as stated in HPI, ten or more systems reviewed. Constitutional: No fever, chills, weakness ENT: No sore throat or epistaxis Cardiovascular: No chest pain or palpitations; admits to dyspnea on exertion Respiratory: No cough, or wheezing Musculoskeletal: No joint pain or swelling Gastrointestinal: No abdominal pain, constipation, diarrhea, or vomiting Genitourinary: No dysuria or hematuria Neurological: No numbness, tingling, weakness, or headache Psychiatric: No mood changes [facility] Medical History (Updated 09/24/24 @ 14:45 by Raina Fine NP) Arthritis ?M19.90 - Unspecified osteoarthritis, unspecified site (ICD-10) Anemia ?D64.9 - Anemia, unspecified (ICD-10) Depression ?F32.A - Depression, unspecified (ICD-10) History of cardioversion ?Z92.89 - Personal history of other medical treatment (ICD-10) Pulmonary embolism ?I26.99 - Other pulmonary embolism without acute cor pulmonale (ICD-10) Peptic ulcer ?K27.9 - Peptic ulcer, site unspecified, unspecified as acute or chronic, without hemorrhage or perforation (ICD-10) GERD (gastroesophageal reflux disease) ?K21.9 - Gastro-esophageal reflux disease without esophagitis (ICD-10) Sick sinus syndrome ?I49.5 - Sick sinus syndrome (ICD-10) Chronic diastolic (congestive) heart failure ?I50.32 - Chronic diastolic (congestive) heart failure (ICD-10) CAD (coronary artery disease) ?I25.10 - Atherosclerotic heart disease of [place] coronary artery without angina pectoris (ICD-10) Cardiomyopathy ?I42.9 - Cardiomyopathy, unspecified (ICD-10) PVCs (premature ventricular contractions) ?I49.3 - Ventricular premature depolarization (ICD-10) Dyspnea on exertion ?R06.09 - Other forms of dyspnea (ICD-10) Left ventricular systolic dysfunction ?I51.89 - Other ill-defined heart diseases (ICD-10) Hypertension ?I10 - Essential (primary) hypertension (ICD-10) UTI (urinary tract infection) ?N39.0 - Urinary tract infection, site not specified (ICD-10) Atrial fibrillation ?I48.91 - Unspecified atrial fibrillation (ICD-10) Anticoagulated ?Z79.01 - ferry terminal agent (current) use of anticoagulants (ICD-10) Kidney stones ?N20.0 - Calculus of kidney (ICD-10) Surgical History (Updated 09/24/24 @ 14:41 by Raina Fine NP) H/O breast biopsy ?Z98.890 - Other specified postprocedural states (ICD-10) H/O cataract extraction ?Z98.49 - Cataract extraction status, unspecified eye (ICD-10) Hx of tonsillectomy ?Z90.89 - Acquired absence of other organs (ICD-10) H/O tubal ligation ?Z98.51 - Tubal ligation status (ICD-10) H/O gastric bypass ?Z98.84 - Bariatric surgery status (ICD-10) S/P panniculectomy ?Z98.890 - Other specified postprocedural states (ICD-10) H/O colonoscopy ?Z98.890 - Other specified postprocedural states (ICD-10) History of cholecystectomy ?Z90.49 - Acquired absence of other specified parts of digestive tract (ICD-10) H/O lithotripsy ?Z98.890 - Other specified postprocedural states (ICD-10) Family History (Updated 09/24/24 @ 14:45 by Raina Fine NP) Other Family history of cancer Family history of diabetes mellitus Family history of heart disease Family history of hypertension Family history of myocardial infarction Family history of stroke Social History (Updated 09/24/24 @ 14:39 by Raina Fine NP) Within the past year, how often did you have a drink containing alcohol: never Score interpretation: A score less than 3 is consistent with normal alcohol consumption. Smoking status: Never smoker Non-prescribed substance use: denies use Previous occupational history: Retired Highest level of school completed/degree received: high school graduate Meds Home Medications and Allergies Home Medications ?Medication ?Instructions ?Recorded ?Confirmed ?Type amiodarone 200 mg tablet 200 mg PO Q24H 09/24/24 11/02/24 History dapagliflozin propanediol 10 mg 10 mg PO DAILY 09/24/24 11/02/24 History tablet (Farxiga) fluoxetine 20 mg capsule 20 mg PO DAILY 09/24/24 11/02/24 History losartan 100 mg tablet 100 mg PO DAILY 09/24/24 11/02/24 History magnesium 200 mg tablet 400 mg PO DAILY 09/24/24 11/02/24 History metoprolol tartrate 25 mg tablet 12.5 mg PO Q12H 09/24/24 11/02/24 History multivitamin (Daily Multi-Vitamin 1 tab PO DAILY 09/24/24 11/02/24 History tablet) pantoprazole 40 mg tablet,delayed 40 mg PO DAILY 09/24/24 11/02/24 History release potassium chloride 10 mEq 10 meq PO DAILY 09/24/24 11/02/24 History tablet,extended release(part/cryst) spironolactone 25 mg tablet 25 mg PO DAILY 09/24/24 11/02/24 History warfarin 2 mg tablet 2 mg PO QDAY 09/24/24 11/02/24 History Allergies Allergy/AdvReac Type Severity Reaction Status Date / Time hydrocodone AdvReac Vomiting Verified 11/02/24 11:12 Exam Narrative Exam Narrative: Constitutional: Awake, alert, comfortable, well-appearing, nontoxic, interactive, vital signs as charted Head: Normocephalic, atraumatic Neck: Supple, normal appearance, normal range of motion, no meningeal signs, no lymphadenopathy Respiratory: No respiratory distress, breath sounds clear Cardiovascular: Regular rate and rhythm, strong and regular heart tones Abdomen: Nontender, normal bowel sounds, soft, no CVA tenderness Musculoskeletal: Normal gait, no swelling or edema Skin: No rashes or induration, no lesions, only visible skin inspected Neuro: No neurological deficits, normal sensation Psychiatric: Oriented ?3, normal affect Assessment and Plan Assessment and Plan (1) Kidney stones: Plan Cystoscopy, urethral dilation, right retrograde, right ureteroscopy, thulium laser, possible right stent placement scheduled with Dr. Ding 11/15/2024.
[2024-11-02 11:29] LABS: Hematocrit 43.7 % (36.0-48.0); Hemoglobin 14.2 g/dL (12.0-16.0); Immature Granulocytes Abs Auto 0.01 10^3/uL (0.00-0.03); Immature Granulocytes Pct Auto 0.2 % (0.0-0.5); Lymphocytes Absolute Auto 1.6 10^3/uL (1.2-3.8); Mean Corpuscular HGB Conc 32.5 g/dL (29.9-35.2); Mean Corpuscular Hemoglobin 28.9 pg (26.7-34.0); Mean Corpuscular Volume 89.0 fL (81.0-99.0); Platelet Count 194 10^3/uL (150-450); Red Blood Count 4.91 10^6/uL (4.20-5.40); White Blood Count 5.5 10^3/uL (4.0-11.0)
[2024-11-02 11:47] LABS: INR 1.78; Partial Thromboplastin Time 33.8 sec (22.3-36.2); Prothrombin Time 17.8 sec (9.0-11.6)
[2024-11-02 11:49] LABS: Anion Gap 11.1; Blood Urea Nitrogen 21.0 mg/dL (7.0-18.0); Calcium 8.4 mg/dL (8.5-10.1); Carbon Dioxide 23.8 mmol/L (21.0-32.0); Chloride 107 mmol/L (98-107); Estimated GFR (African America 50 (>=60 mL/min/1.73m^2); Estimated GFR (Non-African Ame 41 (>=60 mL/min/1.73m^2); Glucose 147 mg/dL (74-106); Potassium 3.9 mmol/L (3.5-5.1); Sodium 138 mmol/L (136-145)
== END 2024-11-02 10:51 | disposition home or self-care (01) ==
LOC: PST 10:51
PROVIDERS: PCP Student in an Organized Health Care Education/Training Program; Visit Provider Urology
DX: Z01.812 Encounter for preprocedural laboratory examination (principal); Z01.818 Encounter for other preprocedural examination; N20.0 Calculus of kidney
CPT/HCPCS: 36415; 80048; 85025; 85610; 85730; G0463

== ENCOUNTER 2024-11-15 06:30 | Day surgery (SDC) | payer MEDICARE, SELFPAY ==
[2024-11-02 11:23] VITALS: BP 115/71; PULSE 76; TEMP 36.3; O2SAT 94; BMI 34.2
[2024-11-15] VITALS (14 sets, daily range): BP systolic 149–167; BP diastolic 71–98; PULSE 58–74; TEMP 36.1–36.2; O2SAT 93–99; BMI 34.3
--- OUTSIDE RECORDS SUMMARY | 2024-11-15 06:33 | XMS_ITS | CCD ---
Author Organization [facility] Care Team Providers Care Clinical Rehabilitation Liaison Name Role Phone IVONE, DR FORBES Primary Care Unavailable SALEEM, DR VALADEZ Consulting Unavailable SLAEEM, DR VALADEZ Attending Unavailable SALEEM, DR VALADEZ [...] [phone] DO Tami Cardoza Emergency Provider Andrei Wiseman MD Primary Care Provider Johnny NINO-Delilah BARBOUR Unavailable Andrei Wiseman MD Primary Care Provider Andrei Wiseman Primary Care Unavailable Yvonne Haas Admitting Unavailable Yvonne Haas Attending Unavailable Ivone, Andrei Primary Care Unavailable Deillah Turner Admitting Unavailable Delilah Turner Attending Unavailable Jose Martin Jones Attending Unavail able Ivone, [facility] Unavailable Jose Martin Jones Admitting Unavail able Tami Cardoza Admitting Unavailable Tami Cardoza Attending Unavailable Defrance, Andrei [facility] Care Unavailable Dicksonrance , Andrei Walker Primary Care Provider Ivone DE LA ROSA, Andrei Walker Primary Care Provider Jerome Quick MD Primary Care Provider [phone] Ivone DE LA ROSA, Andrei Bangura Primary Care Provider ANDREI WISEMAN Attending Unavailable DEFRANCE, ANDREI Walker Referring Unavailable DEFRANCE, ANDREI Walker Primary Care Unavailable JEROME QUICK Attending Unavailable NGOC, JEROME Referring Unavailable NGOC, JEROME Primary Care Unavailable JEROME QUICK Attending Unavailable IVONE, ANDREI Walker Referring Unavailable NGOC, JEROME Primary Care Unavailable Allyson SALEEM Attending Unavailable Allyson SALEEM Attending Unavailable Allyson SALEEM Attending Unavailable Allyson SALEEM Admitting Unavailable DefAndrei post MD Primary Care Provider Unavailable YVONNE HAAS Referring Unavailable DEFRANCE, ANDREI HUMBERTO Primary Care Unavailab le YVONNE HAAS Referring Unavailable DEFRANCE, ANDREI BYRNEDALE Primary Care Unavailab Allyson Wall Attending Unavailable HAASYVONNE Attending Unavailable DEFZE, [facility] Care Unavailab le JOSE MARTIN JONES Referring Unavailable HAAS, YVONNE Marroquin Referring Unavailable DEFRANCE, ANDREI HUMBERTO Primary Care Unavailab le YVONNE HAAS Attending Unavailable HAASYVONNE Referring Unavailable DEFRANCE, [facility] Primary Care Unavailab le HAASYVONNE Referring Unavailable DEFRANCE, [facility] Primary Care Unavailab le SERVICE, MANDY Referring Unavailable DEFRANCE, ANDREI Walker Primary Care Unavailable SERVICE, JOBST Referring Unavailable DEFRANCE, ANDREI Walker Primary Care Unavailable SERVICE, JOBST Referring Unavailable DEFRANCE, ANDREI Walker Primary Care Unavailable HAASYVONNE Referring Unavailable DEFRANCE, ANDREI Walker Primary Care Unavailable SERVICE, JOBST Referring Unavailable DEFRANCE, ANDREI Walker Primary Care Unavailable SERVICE, JOBST Referring Unavailable DEFRANCE, ANDREI Walker Primary Care Unavailable SERVICE, JOBST Referring Unavailable DEFRANCE, ANDREI Walker Primary Care Unavailable SERVICE, JOBST Referring Unavailable DEFRANCE, ANDREI Walker Primary Care Unavailable SERVICE, JOBSBrooklynn Referring Unavailable DEFRANCE, [facility] Primary Care Unavailable MEDICATION MANAGEMENT, [facility] Referr ing Unavailable DEFRANCE, [facility] Primary Care Unavailable MEDICATION MANAGEMENT, [facility] Referr ing Unavailable DEFRANCE, ANDREI Brooklynn Primary Care Unavailable HAASYVONNE MAGALLON Referring Unavailable DEFRANCE, ANDREI Walker Primary Care Unavailable HAASYVONNE Referring Unavailable DEFRANCE, ANDREI Walker Primary Care Unavailable MEDICATION MANAGEMENT, [facility] Referr ing Unavailable DEFRANCE, ANDREI Brooklynn Primary Care Unavailable MEDICATION MANAGEMENT, [facility] Referr ing Unavailable DEFRANCE, [facility] Primary Care Unavailable DEFRANCE, ANDREI Brooklynn Primary Care Unavailable ROJELIO DYE Attending Unavailable MEDICATION MANAGEMENT, [facility] Referr ing Unavailable DEFRANCE, ANDREI Brooklynn Primary Care Unavailable MEDICATION MANAGEMENT, [facility] Referr ing Unavailable DEFRANCE, ANDREI Brooklynn Primary Care Unavailable MEDICATION MANAGEMENT, [facility] Referr ing Unavailable DEFRANCE, ANDREI Walker Primary Care Unavailable MARISOLMATTHEW Admitting Unavailable MARISOL, MATTHEW Sena Attending Unavailable MARISOL, MATTHEW Sena Referring Unavailable DEFRANCE, ANDREI Walker Primary Care Unavailable MEDICATION MANAGEMENT, [facility] Referr ing Unavailable DEFRANCE, ANDREI Brooklynn Primary Care Unavailable MEDICATION MANAGEMENT, [facility] Referr ing Unavailable DEFRANCE, ANDREI Brooklynn Primary Care Unavailable MEDICATION MANAGEMENT, [facility] Referr ing Unavailable DEFRANCE, ANDREI Walker Primary Care Unavailable MEDICATION MANAGEMENT, [facility] Referr ing Unavailable DEFRANCE, [facility] Primary Care Unavailable [facility]NAG[facility], [facility] [...] ing Unavailable NGOC, JEROME Primary Care Unavailable Allergies Allergy Classification Reported Allergen(s) Allergy Type Date of Onset Reaction(s) Facility (1 source) Acetaminophen / HYDROcodone Drug Allergy [facility] (1 source) Misc-Drug Drug allergy (disorder) [facility] (20 sources) Acetaminophen / oxyCODONE; Translations: [Percocet TABS] Drug Allergy 07-31-19 22 Hallucinations [facility] DO Work Phone: (17 sources) house dust Allergy to substance (finding) [facility] DO Work Phone: (17 sources) Animal dander - Cats Allergy to substance (finding) [facility] DO Work Phone: (17 sources) Animal dander - Dogs [facility] to substance (finding) [facility] Work Phone: (7 sources) narcotic analgesics; Translations: [narcotic analgesics] Drug allergy Moderate (severity modifier) (qualifier value) [facility] (20 sources) house dust allergenic extract; Translations: [HOUSE DUST] Drug Allergy 07-31-19 22 Unknown, Runny nose [place] Work Phone: (20 sources) Cat Dander; Translations: [CAT DANDER] Allergy to substance 11-27-19 Unknown, Runny nose, Other (See Comments) [place] (20 sources) Dog Dander; Translations: [DOG DANDER] Allergy to substance 11-27-19 Unknown, Runny nose, Other (See Comments) [place] Work Phone: (20 sources) Aspirin; Translations: [ASPIRIN] Drug Allergy 10-08-19 [facility] (20 sources) Codeine; Translations: [CODEINE] Drug Allergy 08-26-19 12 [employer] [facility] (20 sources) Ibuprofen; Translations: [IBUPROFEN] Drug Allergy 10-08-19 [facility] (20 sources) Morphine; Translations: [MORPHINE] Drug Allergy 08-26-19 12 [facility] (20 sources) Nitrofurantoin; Translations: [NITROFURANTOIN] Drug Allergy 07-31-19 [facility] Work Phone: (20 sources) Animal Dander; Translations: [ANIMAL DANDER] Propensity to adverse reactions to drug 07-31-19 [facility] (4 sources) Acetaminophen / oxyCODONE; Translations: [OXYCODONE-ACETA MINOPHEN] Drug Allergy 07-31-19 [facility] Medications Current Medications Medication Drug Class(es) [...] procedure, # 2 cap(s), Refills(s) 0, Pharmacy: [facility] [id number], 169, cm, 09/17/24 10:36:00 EDT, Height/Length Dosing, [...] Start: 02-01-2023 take 1 capsule by mo uth in the morning FLUoxetine (PROzac) 20 mg [...] tab(s), Oral, BID, 180 tab(s), Refill(s) 3, [facility] [id number], 169, cm, 09/17/24 10:36:00 EDT, Height/Length Dosing, [...] tab(s), Oral, BID, 180 tab(s), Refill(s) 3, [facility] [id number], 169, cm, 09/16/23 10:22:00 EDT, Height/Length Dosing, [...] for 30 day(s), 60 tab(s), Refill(s) 11, [facility] [id number], 169, cm, 09/13/22 10:29:00 EDT, Height/Length Dosing, [...] mouth in the evening. As directed by [facility]. 270 tablet 1 11/02/2024 Active Start: [...] mouth in the evening. As directed by [facility] (MT[facility]). 30 tablet 10/25/2023 [...] [Coronary atherosclerosis of unspecified type of vessel, [place] or graft] Onset: 09-21-2021 01-17-2023 Chronic E [...] Check up Onset: 01-25-2024 Unclassified (1 source) Abdominal aortic aneurysm, ruptured, unspecified (Multi); Translations: [Abdominal aortic aneurysm, ruptured, unspecified (Multi)] Onset: 10-02-2024 Unclassified (1 source) ill Onset: 04-09-2024 Urinary [...] Resolved: 08-08-2024 01-25-2024 Other aftercare (3 sources) senior care (current) use of anticoagulants; Translations: [LUMBER STRAIGHTENED CURRNT USE ANTICOAGULANTS] Onset: 12-08-2020 Episodic Other aftercare (4 sources) Other group home (current) drug therapy; Translations: [OTH CUSTODIAL CURRENT DRUG THERAPY] Onset: 12-08-2020 Episodic Other aftercare (20 sources) Long-term current use of anticoagulant; Translations: [senior care (current) use of anticoagulants] Onset: 09-13-2022 Episodic Other aftercare (20 sources) Taking high risk medication; Translations: [Other manager long term care (current) drug therapy] Onset: 11-26-2022 01-17-2023 Episodic [...] Reference Range Facility POCT Protime / INRon 11-07- 025 INR Coag (PPP) [Relative time] 2.2 {INR} Abnormal 0.8 - 1.2 [facility] Interpretation and review of laboratory results Abnormal [facility] POCT Protime / INRon 025 INR Coag (PPP) [Relative time] 1.8 {INR} Abnormal 0.8 - 1.2 [facility] Interpretation and review of laboratory results Abnormal [facility] TRANSTHORACIC ECHO (TTE) [facility] ITED 10-02-2024 TRANSTHORACIC ECHO (TTE) LIMITED [address], [place] [address] TRANSTHORACIC ECHOCARDIOGRAM REPORT Patient Name: [facility] Physician: [id number] Yvonne Haas MD, [facility] Study Date: 10/02/2024 Ordering Provider: [id number] YVONNE HAAS MRN/PID: [id number] Fellow: Nurse: Date of /Age: 7 1945 / Mascara Molder: Taty shoemaker RDCS, RVT Gender Assigned at F Additional Staff: : Height: 167.64 cm Admit Date: Weight: 90.72 kg Admission Status: Outpatient BSA / BMI: 2.00 m2 / 32.28 Department Location: [facility] kg/m2 [place] Blood Pressure: 136 /82 mmHg Study Type: TRANSTHORACIC ECHO (TTE) LIMITED Diagnosis/ICD: Cardiomyopathy, unspecified-I42.9; Abdominal aortic aneurysm, ruptured, unspecified-I71.30; Chronic diastolic (congestive) heart failure (CHF)-I50.32 Indication: Paroxsmal Atrial Fibrillation, Sick Sinus Syndrome, PVC's, HTN, Obesity CPT Codes: Echo Limited-42018 Study Detail: The following Echo studies were [...] Normal Ranges: LVOT Diameter: 2.30 cm (1.8-2.4cm) [id number] Yvonne Haas MD, FACC Electronically signed on 10/10/2024 at 4:22:13 PM Final CONCLUSIONS: 1. Left ventricular ejection fraction is mildly decreased by visual estimate at 40-45%. 2. Mild concentric left ventricular hypertrophy. 3. There is normal right ventricular global systolic function. 4. When compared to study from December 2023, the left ventricle ejection fraction is slightly improved. [facility] Urineon 09-19-2024 Bacteria identified Cx Nom [...] Locations R1: This test was performed at: [facility], [address] [place] [address], [phone] , [place], [facility] Comment on above: Performed By: #### 2 [id number] #### [facility] [address] [place] [address] Ambulatory Visit Summaryon 0 09-17-2024 Ambulatory Visit Summary Ambulatory Visit Summary BONYSTEVENLAZARO EDUARDO Hi :1945 Visit Date:09/17/2024 Ambulatory Visit Instructions Your [...] When: Comments: sched cysto/UD Where: [address] [place] [address] Medications What How Much When Instructions Unchanged [...] including vitamins, herbs, eye drops, creams, and jxmx-brz-rqfmgut medicines. ??? Any problems you or family members have had with anesthetic medicines. ??? Any blood disorders you have. ??? Any surgeries you have had. ??? Any medical conditions you have. ??? Whether you are or may be . What are the risks? Generally, this is a safe procedure. However, problems may occur, including: ??? Infection (more content not included)... Normal [facility] Urology Office/Clinic Noteon 09-17-2024 Urology Office/Clinic [...] Local anesthesia. 4. Anticoagulant long-term use (Z79.01: senior care (current) use of anticoagulants) Eliquis. Elevated risk for periop complications. [2] Follow-up With When Contact Information HARPER DE LA ROSA, Allyson Monten[place], URL [address] [address] Additional Instructions: sched cysto/UD Patient Education Cystoscopy [...] refills spironola (more content not included)... Normal [facility] Comment on above: Result Comment: Elec tronically [...] * Multiple right-sided renal calculi Finalized by Humberto Adhikari MD on 09/17/2024 10:25 AM Normal [facility] CBC WITH AUTO DIFFERENTIALon 09-13-2024 Band form neutrophils/100 WBC (Bld) 1 % Normal [facility] Comment on above: Result Comment: This is an appended report. These results have been appended to a previously preliminary verified report. Performed By: #### C BCA #### [facility] ([facility]) [address] [place] [address] VIR CELLAVISION BASOPHILS ABSOLUTE COUNT (10*3/UL) BY MANUAL COUNT 0.2 10*3/uL Normal 0.0-0.2 [facility] Comment on above: Result Comment: This is an appended report. These results have been appended to a previously preliminary verified report. Performed By: #### C BCA #### [facility] ([facility]) [address] [place] [address] VIR CELLAVISION BASOPHILS RELATIVE PERCENT BY MANUAL COUNT 3 % Normal [facility] Comment on above: Result Comment: This is an appended report. These results have been appended to a previously preliminary verified report. Performed By: #### C BCA #### [facility] ([facility]) [address] [place] [address] VIR CELLAVISION DIFFERENTIAL TYPE MANUAL DIFFERENTIAL Normal [facility] Comment on above: Result Comment: This is an appended report. These results have been appended to a previously preliminary verified report. Performed By: #### C BCA #### [facility] ([facility]) [address] [place] [address] VIR CELLAVISION EOSINOPHILS ABSOLUTE COUNT (10*3/UL) BY MANUAL COUNT 0.3 10*3/uL Normal 0.0-0.4 [facility] Comment on above: Result Comment: This is an appended report. These results have been appended to a previously preliminary verified report. Performed By: #### C BCA #### [facility] ([facility]) [address] [place] [address] VIR CELLAVISION EOSINOPHILS PERCENT BY MANUAL COUNT 5 % Normal [facility] Comment on above: Result Comment: This is an appended report. These results have been appended to a previously preliminary verified report. Performed By: #### C BCA #### [facility] ([facility]) [address] [place] [address] VIR CELLAVISION LYMPHOCYTES ABSOLUTE COUNT (10*3/UL) BY MANUAL COUNT 2.5 10*3/uL Normal 1.0-3.5 [facility] Comment on above: Result Comment: This is an appended report. These results have been appended to a previously preliminary verified report. Performed By: #### C BCA #### [facility] ([facility]) [address] [place] [address] VIR CELLAVISION LYMPHOCYTES RELATIVE PERCENT BY MANUAL COUNT 36 % Normal [facility] Comment on above: Result Comment: This is an appended report. These results have been appended to a previously preliminary verified report. Performed By: #### C BCA #### [facility] ([facility]) [address] [place] [address] VIR CELLAVISION MONOCYTES ABSOLUTE COUNT (10*3/UL) IN BLOOD BY MANUAL COUNT 0.6 10*3/uL Normal 0.0-0.9 [facility] Comment on above: Result Comment: This is an appended report. These results have been appended to a previously preliminary verified report. Performed By: #### C BCA #### [facility] ([facility]) [address] [place] [address] VIR CELLAVISION MONOCYTES RELATIVE PERCENT BY MANUAL COUNT 9 % Normal [facility] Comment on above: Result Comment: This is an appended report. These results have been appended to a previously preliminary verified report. Performed By: #### C BCA #### [facility] ([facility]) [address] [place] [address] VIR CELLAVISION NEUTROPHILS ABSOLUTE COUNT BY MANUAL COUNT 3.3 10*3/uL Normal 1.5-6.6 [facility] Comment on above: Result Comment: This is an appended report. These results have been appended to a previously preliminary verified report. Performed By: #### C BCA #### [facility] ([facility]) [address] [place] [address] VIR CELLAVISION NEUTROPHILS RELATIVE PERCENT BY MANUAL COUNT 48 % Normal [facility] Comment on above: Result Comment: This is an appended report. These results have been appended to a previously preliminary verified report. Performed By: #### C BCA #### [facility] ([facility]) [address] [place] [address] VIR CELLAVISION RBC MORPHOLOGY Normal Normal [facility] Comment on above: Result Comment: This is an appended report. These results have been appended to a previously preliminary verified report. Performed By: #### C BCA #### [facility] ([facility]) [address] [place] [address] VIR Erythrocyte distribution width (RBC) [Ratio] 13.9 % Normal 11.5-15 [facility] Comment on above: Performed By: #### C BCA #### [facility] ([facility]) [address] [place] [address] VIR Hematocrit (Bld) [Volume fraction] 44.7 % Normal 35-47 [facility] Comment on above: Performed By: #### C BCA #### [facility] ([facility]) [address] [place] [address] VIR Hemoglobin (Bld) [Mass/Vol] 14.8 g/dL Normal 11.7-15.5 [facility] Comment on above: Performed By: #### C BCA #### [facility] ([facility]) [address] [place] [address] VIR MCH (RBC) [Entitic mass] 29.2 pg Normal 27-34 [facility] Comment on above: Performed By: #### C BCA #### [facility] ([facility]) [address] [place] [address] VIR MCHC (RBC) [Mass/Vol] 33.2 g/dL Normal 32-36 [facility] Comment on above: Performed By: #### C BCA #### [facility] ([facility]) [address] [place] [address] VIR MCV (RBC) [Entitic vol] 88 fL Normal 80-100 [facility] Comment on above: Performed By: #### C BCA #### [facility] ([facility]) [address] [place] [address] VIR Platelet mean volume (Bld) [Entitic vol] 8.8 fL Normal 7-12 [facility] Comment on above: Performed By: #### C BCA #### [facility] ([facility]) [address] [place] [address] VIR Platelets (Bld) [#/Vol] 198 10*3/uL Normal 150-450 [facility] Comment on above: Performed By: #### C BCA #### [facility] ([facility]) [address] [place] [address] VIR RBC COUNT 5.07 X10E12/L Normal 3.8-5.2 [facility] Comment on above: Performed By: #### C BCA #### [facility] ([facility]) [address] [place] [address] VIR WBC (Bld) [#/Vol] 7.0 10*3/uL Normal 4-11 [facility] Comment on above: Performed By: #### C BCA #### [facility] ([facility]) [address] [place] [address] VIR COMPREHENSIVE METABOLIC PANE Dionicio 09-13-2024 Albumin [Mass/Vol] 3.9 g/dL Normal 3.2-5.3 [facility] Comment on above: Performed By: #### C MP ####[facility] ([facility])[address], [place] [address] VIR ALP [Catalytic activity/Vol] 77 U/L Normal 39-130 [facility] Comment on above: Performed By: #### C MP ####[facility] ([facility])[address], [place] [address] VIR ALT [Catalytic activity/Vol] 22 U/L Normal <=31 [facility] Comment on above: Performed By: #### C MP ####[facility] ([facility])[address], [place] [address] VIR Anion gap [Moles/Vol] 9 mmol/L Normal 5-15 [facility] Comment on above: Performed By: #### C MP ####[facility] ([facility])[address], [place] [address] VIR AST [Catalytic activity/Vol] 28 U/L Normal <=41 [facility] Comment on above: Performed By: #### C MP ####[facility] ([facility])[address], [place] [address] VIR Bilirubin [Mass/Vol] 0.6 mg/dL Normal 0.3-1.2 [facility] Comment on above: Performed By: #### C MP ####[facility] ([facility])[address], [place] [address] VIR Calcium [Mass/Vol] 8.7 mg/dL Normal 8.5-10.5 [facility] Comment on above: Performed By: #### C MP ####[facility] ([facility])[address], [place] [address] VIR Chloride [Moles/Vol] 107 mmol/L Normal 98-109 [facility] Comment on above: Performed By: #### C MP ####[facility] ([facility])[address], [place] [address] VIR CO2 [Moles/Vol] 24 mmol/L Normal 22-32 [facility] Comment on above: Performed By: #### C MP ####[facility] ([facility])[address], [place] [address] VIR Creatinine [Mass/Vol] 1.38 mg/dL High 0.40-1.00 [facility] Comment on above: Result Comment: METH OD TRACEABLE TO IDMS STANDARD Performed By: #### C MP ####[facility] ([facility])[address], [place] [address] VIR GFR/1.73 sq M.predicted among non-blacks MDRD (S/P/Bld) [Vol rate/Area] 39 mL/min/{1.73_m2} Low >=60 [facility] Comment on above: Result Comment: Repo rted eGFR is based on the CKD-EPI 2020 equation that does not use a race coefficient. Performed By: #### C MP ####[facility] [facility] ([facility])[address], [place] [address] VIR Glucose [Mass/Vol] 87 mg/dL Normal 65-99 [facility] Comment on above: Performed By: #### C MP ####[facility] ([facility])[address], [place] [address] VIR Potassium [Moles/Vol] 4.8 mmol/L Normal 3.5-5.0 [facility] Comment on above: Performed By: #### C MP ####[facility] ([facility])[address], [place] [address] VIR Protein [Mass/Vol] 6.8 g/dL Normal 6.0-8.0 [facility] Comment on above: Performed By: #### C MP ####[facility] ([facility])[address], [place] [address] VIR Sodium [Moles/Vol] 140 mmol/L Normal 134-146 [facility] Comment on above: Performed By: #### C MP ####[facility] ([facility])[address], [place] [address] VIR Urea nitrogen [Mass/Vol] 23 mg/dL Normal 5-27 [facility] Comment on above: Performed By: #### C MP ####[facility] ([facility])[address], [place] [address] VIR LIPID PROFILEon 09-13-2024 Cholesterol [Mass/Vol] 204 mg/dL High 150-[address] [facility] Comment on above: Performed By: #### L IPR ####[facility] ([facility])[address], [place] [address] VIR Cholesterol in HDL [Mass/Vol] 55 mg/dL Normal >39 [facility] Comment on above: Result Comment: HDL <40 mg/dL - High Risk HDL > or = 40mg/dL- Desirable HDL >60 mg/dL - Negative Risk Performed By: #### L IPR ####[facility] ([facility])[address], [place] [address] VIR Cholesterol in LDL [Mass/Vol] 120 mg/dL Normal <130 [facility] Comment on above: Result Comment: LDL <100 mg/dL - Desirable LDL >160 mg/dL - High Risk Performed By: #### L IPR ####[facility] ([facility])[address], [place] [address] VIR CHOLESTEROL:HDL 3.7 Normal 1.0-5.0 [facility] Comment on above: Performed By: #### L IPR ####[facility] ([facility])[address], [place] [address] VIR Triglyceride [Mass/Vol] 147 mg/dL Normal 27-150 [facility] Comment on above: Performed By: #### L IPR ####[facility] ([facility])[address], [place] [address] VIR VERY LOW LIPOPROTEIN 29 mg/dL Normal 0-30 [facility] Comment on above: Performed By: #### L IPR ####[facility] ([facility])[address], [place] [address] VIR TSHon 09-13-2024 TSH 1.59 uIU/mL Normal 0.49-4.67 [facility] Comment on above: Performed By: #### T #### [facility] ([facility]) [address] [place] [address] VIR POCT Protime / INRon 09-12-2 025 INR Coag (PPP) [Relative time] 1.9 {INR} Abnormal 0.8 - 1.2 [facility] Interpretation and review of laboratory results Abnormal [facility] POCT Protime / INRon 08-15- 025 INR Coag (PPP) [Relative time] 3.1 {INR} Abnormal 0.8 - 1.2 [facility] Interpretation and review of laboratory results Abnormal [facility] ECG 12 Leadon 07-25-2024 ECG revealed normal sinus rhythm, right axis deviation, low voltage QRS complex, abnormal ECG. [facility] Work Phone: POCT Protime / INRon 07-18- 025 INR Coag (PPP) [Relative time] 2 {INR} Abnormal 0.8 - 1.2 [facility] Interpretation and review of laboratory results Abnormal [facility] POCT Protime / INRon 06-19-2 025 INR Coag (PPP) [Relative time] 1.4 {INR} Abnormal 0.8 - 1.2 [facility] Interpretation and review of laboratory results Abnormal [facility] POCT Protime / INRon 06-07-2 025 INR Coag (PPP) [Relative time] 1.4 {INR} Abnormal 0.8 - 1.2 [facility] Interpretation and review of laboratory results Abnormal [facility] POCT Protime / INRon 05-18- 025 INR Coag (PPP) [Relative time] 1.9 {INR} Abnormal 0.8 - 1.2 [facility] Interpretation and review of laboratory results Abnormal [facility] POCT Protime / INRon 05-09- 025 INR Coag (PPP) [Relative time] 2.5 {INR} Abnormal 0.8 - 1.2 [facility] Interpretation and review of laboratory results Abnormal [facility] POCT Protime / INRon 04-30-2 025 INR Coag (PPP) [Relative time] 4.1 {INR} Abnormal 0.8 - 1.2 [facility] Interpretation and review of laboratory results Abnormal [facility] POCT Protime / INRon 04-16-2 025 INR Coag (PPP) [Relative time] 3.8 {INR} Abnormal 0.8 - 1.2 [facility] Interpretation and review of laboratory results Abnormal [facility] CT BRAIN WO CONTon 5 CT BRAIN [...] Lizarraga MD on 04/09/2024 1:18 AM Normal [facility] XR KNEE RT 3 VWSon 5 XR [...] Lizarraga MD on 04/09/2024 1:22 AM Normal [facility] XR SHOULDER RT MIN 2 VWSon [...] Lizarraga MD on 04/09/2024 1:19 AM Normal [facility] XR WRIST RT MIN 3 VWSon [...] Lizarraga MD on 04/09/2024 1:20 AM Normal [facility] POCT Protime / INRon 03-26-2 025 INR Coag (PPP) [Relative time] 2.7 {INR} Abnormal 0.8 - 1.2 [facility] Interpretation and review of laboratory results Abnormal [facility] POCT Protime / INRon 03-05- 025 INR Coag (PPP) [Relative time] 3.4 {INR} Abnormal 0.8 - 1.2 [facility] Interpretation and review of laboratory results Abnormal [facility] Zoë 02-20-2024 AST [Catalytic activity/Vol] 25 U/L Normal 0-41 [facility] Comment on above: Performed By: #### 1 920-8, BMP #### [facility] ([id number]) [address] [place] [address] BASIC METABOLIC PANLon 02-19 Anion gap [Moles/Vol] 9 mmol/L Normal 5-15 [facility] Comment on above: Performed By: #### 1 920-8, BMP #### [facility] ([id number]) [address] [facility] [address] [place] [address] Calcium [Mass/Vol] 9.2 mg/dL Normal 8.5-10.5 [facility] Comment on above: Performed By: #### 1 920-8, BMP #### [facility] ([id number]) [address] [facility] [address] [place] [address] Chloride [Moles/Vol] 108 mmol/L Normal 98-109 [facility] Comment on above: Performed By: #### 1 920-8, BMP #### [facility] ([id number]) [address], [address] [address] CO2 [Moles/Vol] 23 mmol/L Normal 22-32 [facility] Comment on above: Performed By: #### 1 920-8, BMP #### [facility] ([id number]) [address] [address] Creatinine [Mass/Vol] 1.35 mg/dL High 0.40-1.00 [facility] Comment on above: Result Comment: METH OD TRACEABLE TO IDMS STANDARD Performed By: #### 1 920-8, BMP #### [facility] ([id number]) [address] [address] GFR/1.73 sq M.predicted among non-blacks MDRD (S/P/Bld) [Vol rate/Area] 40 mL/min/{1.73_m2} Low >59 [facility] Comment on above: Result Comment: Reported eGFR is based on the CKD-EPI 2020 equation that does not use a race coefficient. Performed By: #### 1 920-8, BMP #### [facility] ([id number]) [address] [place] [address] Glucose [Mass/Vol] 84 mg/dL Normal 65-99 [facility] Comment on above: Performed By: #### 1 920-8, BMP #### [facility] ([id number]) [address], [address] [place] [address] Potassium [Moles/Vol] 4.6 mmol/L Normal 3.5-5.0 [facility] Comment on above: Performed By: #### 1 920-8, BMP #### [facility] ([id number]) [address], [address] [place] [address] Sodium [Moles/Vol] 140 mmol/L Normal 134-146 [facility] Comment on above: Performed By: #### 1 920-8, BMP #### [facility] ([id number]) [address], [address] [place] [address] Urea nitrogen [Mass/Vol] 30 mg/dL High 5-27 [facility] Comment on above: Performed By: #### 1 920-8, BMP #### [facility] ([id number]) [address], [address] [place] [address] POCT Protime / INRon 025 INR Coag (PPP) [Relative time] 4.8 {INR} Abnormal 0.8 - 1.2 [facility] Interpretation and review of laboratory results Abnormal [facility] POCT Protime / INRon 024 INR Coag (PPP) [Relative time] 3.6 {INR} Abnormal 0.8 - 1.2 [facility] Interpretation and review of laboratory results Abnormal [facility] POCT Protime / INRon 01-12- 024 INR Coag (PPP) [Relative time] 3.7 {INR} Abnormal 0.8 - 1.2 [facility] Interpretation and review of laboratory results Abnormal [facility] POCT Protime / INRon 024 INR Coag (PPP) [Relative time] 2.5 {INR} Abnormal 0.8 - 1.2 [facility] Interpretation and review of laboratory results Abnormal [facility] POCT Protime / INRon 024 INR Coag (PPP) [Relative time] 2.4 {INR} Abnormal 0.8 - 1.2 [facility] Interpretation and review of laboratory results Abnormal [facility] POCT Protime / INRon 024 INR Coag (PPP) [Relative time] 1.6 {INR} Abnormal 0.8 - 1.2 [facility] Interpretation and review of laboratory results Abnormal [facility] TSH Qnon 12-16-2023 TSH 1.44 uIU/mL Normal 0.49-4.67 [facility] Comment on above: Performed By: #### 3 016-3 #### [facility] ([id number]) [address] [place] [address], [address] [place] [address] TRANSTHORACIC ECHO (TTE) COM PLETEon 12-14-2023 TRANSTHORACIC ECHO (TTE) COMPLETE [address], [address] [address] TRANSTHORACIC ECHOCARDIOGRAM REPORT Patient Name: [facility] Reading Physician: [id number] Hasa MD, [facility] Study Date: 12/14/2023 Ordering Provider: [id number] YVONNE HAAS MRN/PID: [id number] Fellow: Nurse: Date of /Age: 7 1945 / 78 years Mascara Molder: Taty Allen RDCS, RVT Gender Assigned at F Additional Staff: : Height: 167.64 cm Admit Date: Weight: 94.80 kg Admission Status: BSA / BMI: 2.04 m2 / 33.73 Department Location: [facility] [address] Blood Pressure: 130 /84 mmHg Study Type: TRANSTHORACIC ECHO (TTE) COMPLETE Diagnosis/ICD: Dilated cardiomyopathy-I42.0 Indication: Paroxysmal Atrial Fibrillation, PVC's, Sick Sinus Syndrome, Mild CAD, HTN, Obesity CPT Codes: Echo Complete w Full Doppler-66504 Study Detail: The following Echo studies were [...] PV Ma (more content not included)... Normal [facility] US Heart Transthoracicon Aortic Valve Area by Continuity of Peak Velocity 1.85 cm2 [facility] Work Phone: [phone] Aortic Valve Area by Continuity of VTI 1.74 cm2 [facility] Work Phone: [phone] AV mn grad 7 mmHg [facility] Work Phone: [phone] AV pk grad 13 mmHg [facility] Work Phone: [phone] AV pk kristie 1.77 m/s [facility] Work Phone: [phone] LV A4C EF 60.3 [facility] Work Phone: [phone] LV EF 35 % [facility] Work Phone: [phone] LVIDd 4.48 cm [facility] Work Phone: [phone] LVOT diam 2.3 cm [facility] Work Phone: [phone] MV avg E/e' ratio 10.5 [facility] Work Phone: [phone] MV E/A ratio 0.86 [facility] Work Phone: [address], Suite [facility], [place] [address] TRANSTHORACIC ECHOCARDIOGRAM REPORT Patient Name: EDUARDO Desai Physician: [id number] Yvonne Haas MD, [facility] Study Date: 12/14/2023 Ordering Provider: [id number] YVONNE HAAS MRN/PID: [id number] Fellow: Nurse: Date of /Age: 7 1945 / 78 years Mascara Molder: Taty Allen RDCS, RVT Gender Assigned at F Additional Staff: : Height: 167.64 cm Admit Date: Weight: 94.80 kg Admission Status: BSA / BMI: 2.04 m2 / 33.73 Department Location: [facility] kg/m2 Heart [place] Blood Pressure: 130 /84 mmHg Study Type: TRANSTHORACIC ECHO (TTE) COMPLETE Diagnosis/ICD: Dilated cardiomyopathy-I42.0 Indication: Paroxysmal Atrial Fibrillation, PVC's, Sick Sinus Syndrome, Mild CAD, HTN, Obesity CPT Codes: Echo Complete w Full Doppler-[id number] Study Detail: The following Echo studies were [...] included)... Yvonne Mak M D - 12/14/[address], [address], [place] [address] TRANSTHORACIC ECHOCARDIOGRAM REPORT Patient Name: [facility] Physician: [id number] Yvonne Haas MD, [facility] Study Date: 12/14/2023 Ordering Provider: [id number] [place] M WALDO MRN/PID: [id number] Fellow: Nurse: Date of /Age: 7 1945 / 78 years Mascara Molder: Taty Allen RDCS, RVT Gender Assigned at F Additional Staff: : Height: 167.64 cm Admit Date: Weight: 94.80 kg Admission Status: BSA / BMI: 2.04 m2 / 33.73 Department Location: [facility] kg/m2 Heart [place] Blood Pressure: 130 /84 mmHg Study Type: TRANSTHORACIC ECHO (TTE) COMPLETE Diagnosis/ICD: Dilated cardiomyopathy-I42.0 Indication: Paroxysmal Atrial Fibrillation, PVC's, Sick Sinus Syndrome, Mild CAD, HTN, Obesity CPT Codes: Echo Complete w Full Doppler-[id number] Study Detail: The following Echo studies were [...] AI Half-time: 538 (more content not included)... [facility] Work Phone: [facility] Work Phone: ECG 12 Leadon 12-13-2023 ECG revealed normal sinus rhythm with first-degree AV block, low voltage QRS complex, abnormal ECG [facility] Work Phone: POCT Protime / INRon 024 INR Coag (PPP) [Relative time] 1.3 {INR} Abnormal 0.8 - 1.2 [employer] [facility] Interpretation and review of laboratory results Abnormal [facility] [facility] [employer] [facility] Automated basophil %Ordered By: Tatiana Galvez on 12-01-2023 Basophils/100 WBC (Bld) 1.4 % Normal . [facility] Comment on above: Performed By: #### C BC, BNP, HS TROP, PT, BMP #### [address] Automated basophil countOrde red By: Tatiana Galvez on 12-01-2023 Basophils (Bld) [#/Vol] 0.1 10*3/uL Normal 0.0-0.2 [facility] Comment on above: Result Comment: PERF ORMED BY: [place] [address] PATHOLOGIST OSTEOPATHIC PHYSICIAN ROWENA LIPSCOMB M.D. Performed By: #### C BC, BNP, HS TROP, PT, BMP #### [address] Automated blood monocyte cou ntOrdered By: Tatiana Galvez on 12-01-2023 Monocytes (Bld) [#/Vol] 0.5 10*3/uL Normal 0.0-0.8 [facility] Comment on above: Performed By: #### C BC, BNP, HS TROP, PT, BMP #### [address] Automated eosinophil %Ordere d By: Tatiana Saffle on 12-01-2023 Eosinophils/100 WBC (Bld) 3.5 % Normal . [facility] Comment on above: Performed By: #### C BC, BNP, HS TROP, PT, BMP #### [address] Automated eosinophil countOr dered By: Tatiana Lukashardik on 12-01-2023 Eosinophils (Bld) [#/Vol] 0.3 10*3/uL Normal 0.0-0.45 [facility] Comment on above: Performed By: #### C BC, BNP, HS TROP, PT, BMP #### [address] Automated monocyte %Ordered By: Tatiana Saffle on 12-01-2023 Monocytes/100 WBC (Bld) 6.3 % Normal . [facility] Comment on above: Performed By: #### C BC, BNP, HS TROP, PT, BMP #### [address] Automated neutrophil %Ordere d By: Tatiana Saffle on 12-01-2023 Neutrophils/100 WBC (Bld) 60.3 % Normal . [facility] Comment on above: Performed By: #### C BC, BNP, HS TROP, PT, BMP #### [address] BNP ser/plasOrdered By: Zachary montanomartin Galvez on 12-01-2023 Natriuretic peptide B (Bld) [Mass/Vol] 216.0 pg/mL High 5-100 [facility] Comment on above: Result Comment: PERF ORMED BY: [place] [address] PATHOLOGIST OSTEOPATHIC PHYSICIAN ROWENA LIPSCOMB M.D. Performed By: #### C BC, BNP, HS TROP, PT, BMP #### [address] Basic Metabolic Panelon 11-08 Creatinine Clr Calc Pharmacy 37.72 Normal [facility] Comment on above: Result Comment: PERF ORMED BY: [place] [address] PATHOLOGIST OSTEOPATHIC PHYSICIAN ROWENA LIPSCOMB M.D. Performed By: #### C BC, BNP, HS TROP, PT, BMP #### [address] GFR/1.73 sq M.predicted MDRD (S/P/Bld) [Vol rate/Area] 37.858 mL/min/{1.73_m2} Normal [facility] Comment on above: Performed By: #### C BC, BNP, HS TROP, PT, BMP #### [address] angio chest PE protocolon 12-01-2023 CT angio chest PE protocol [facility] [place] [address] CT Scan Report Signed Patient: Eduardo Howard MR#: [id number] : 1945 Acct:[id number] Age/Sex: 78 / F ADM Date: 12/01/23 Loc: ER Room: Type: [facility] ER Attending Dr: Copies to: DO [...] Stephani Merchant M.D.12/01/2023 5:21 PM Dictation Location: [place] [address] Transcribed By: [facility] 12/01/23 172 Dictated By: Stephani Merchant MD 12/01/231713 Signed By: 12/01/23 172 Normal [facility] Calcium [Mass/volume] in Ser um or PlasmaOrdered By: Tatiana Galvez on 12-01-2023 Calcium [Mass/Vol] 8.9 mg/dL Normal 8.6-10.3 [facility] Comment on above: Performed By: #### C BC, BNP, HS TROP, PT, BMP #### [facility] [address] [place] [address] Carbon dioxide, total [Moles /volume] in Serum or PlasmaOrdered By: Tatiana Galvez on 10-24-2024 CO2 [Moles/Vol] 22.3 mmol/L Normal 21.0-31.0 [facility] Comment on above: Performed By: #### C BC, BNP, HS TROP, PT, BMP #### [address] Chloride [Moles/volume] in S josesito or PlasmaOrdered By: Tatiana Galvez on 12-01-2023 Chloride [Moles/Vol] 107 mmol/L Normal 98-107 [facility] Comment on above: Performed By: #### C BC, BNP, HS TROP, PT, BMP #### [address] Complete Blood Count Auto Di ffon 12-01-2023 Mean Corpuscular HGB Conc 34.1 g/dL Normal 32.0-35.0 [facility] Comment on above: Performed By: #### C BC, BNP, HS TROP, PT, BMP #### [address] Monocytes/100 WBC (Bld) 22.41 % High 0.00-20.00 [facility] Comment on above: Result Comment: For adults in ED, MDW > 20.0 may be associated with a higher risk of sepsis during the first 12 hrs of hospital admission Performed By: #### C BC, BNP, HS TROP, PT, BMP #### [address] NRBC% 0.1 /100{WBC} Normal 0-0.5 [facility] Comment on above: Performed By: #### C BC, BNP, HS TROP, PT, BMP #### [address] Creatinine [Mass/volume] in Serum or PlasmaOrdered By: Tatiana Galvez on 12-01-2023 Creatinine [Mass/Vol] 1.42 mg/dL High 0.60-1.20 [facility] Comment on above: Performed By: #### C BC, BNP, HS TROP, PT, BMP #### [address] ECG 12 lead ECGon 12-01-2023 ECG 12 lead ECG [facility] Main [address] [address] Electrocardiograph Report Signed Patient: Eduardo Howard MR#: [id number] : 1945 Acct:[id number] Age/Sex: 78 / F ADM Date: 12/01/23 Loc: ER Room: Type: [facility] ER Attending Dr: Ordering Provider: Tami Cardoza [...] was found Confirmed by TAMI CARDOZA DO ([id number]) on 12/02/2023 12:57:39 AM Referred By: Electronically Signed By: TAMI CARDOZA DO Transcribed By: MUS Signed By Tami Cardoaz DO 12/01 0057 Normal [facility] ECG 12 lead ECG [address] [address] Electrocardiograph Report Signed Patient: Eduardo Howard MR#: [id number] : 1945 Acct:[id number] Age/Sex: 78 / F ADM Date: 12/01/23 Loc: ER Room: Type: DEP ER Attending Dr: Ordering Provider: Tatiana Galvez [...] now present Confirmed by TAMI CARDOZA DO ([id number]) on 12/02/2023 12:57:39 AM Referred By: Electronically Signed By: TAMI CARDOZA DO Transcribed By: MUS Signed By Tami Cardoza DO 12/01 0057 Normal [facility] Erythrocyte distribution wid th [Ratio] by Automated countOrdered By: Tatiana Galvez on 12-01-2023 Erythrocyte distribution width (RBC) [Ratio] 13.8 % Normal 11.9-15.3 [facility] Comment on above: Performed By: #### C BC, BNP, HS TROP, PT, BMP #### [facility] [address] [place] [address] [place] Erythrocytes [#/volume] in B lood by Automated countOrdered By: Tatiana Galvez on 12-01-2023 RBC (Bld) [#/Vol] 4.90 10*6/uL Normal 3.60-5.00 [facility] Comment on above: Performed By: #### C BC, BNP, HS TROP, PT, BMP #### [facility] [address] [place] [address] [place] Glucose [Mass/volume] in Ser um or PlasmaOrdered By: Tatiana Galvez on 12-01-2023 Glucose [Mass/Vol] 89 mg/dL Normal 70-100 [facility] Comment on above: ADA recommended refe rence rangeRandom Glucose Reference Range is dependent on time and content of last meal. Glucose of more than 200 mg/dL in a nonstressed, ambulatory subject supports the diagnosis of Diabetes Mellitus. Result Comment: [place] om Glucose Reference Range is dependent on time and content of last meal. Glucose of more than 200 mg/dL in a nonstressed, ambulatory subject supports the diagnosis of Diabetes Mellitus. ADA recommended reference range Performed By: #### C BC, BNP, HS TROP, PT, BMP #### [facility] [address] [place] [id number] [place] Hematocrit [Volume Fraction] of Blood by Automated countOrdered By: Tatiana Galvez on 12-01-2023 Hematocrit (Bld) [Volume fraction] 42.8 % Normal 34.0-46.4 [facility] Comment on above: Performed By: #### C BC, BNP, HS TROP, PT, BMP #### [address] Hemoglobin [Mass/volume] in BloodOrdered By: Tatiana Galvez on 12-01-2023 Hemoglobin (Bld) [Mass/Vol] 14.6 g/dL Normal 11.8-15.4 [facility] Comment on above: Performed By: #### C BC, BNP, HS TROP, PT, BMP #### [address] INR in Platelet poor plasma by Coagulation assayOrdered By: Tatiana Galvez on 12-01-2023 INR Coag (PPP) [Relative time] 1.6 {INR} Normal [facility] Comment on above: INR Therapeutic Rang e [...] heart valves: 3 - 4.5 PERFORMED BY: [place] [address] PATHOLOGIST OSTEOPATHIC PHYSICIAN ROWENA LIPSCOMB M.D. Performed By: #### C BC, BNP, HS TROP, PT, BMP #### [address] Leukocytes [#/volume] correc henry for nucleated erythrocytes in Blood by Automated counOrdered By: Tatiana Galvez on 12-01-2023 WBC corrected for nucl RBC Auto (Bld) [#/Vol] 7.5 10*3/uL 3.8-11.6 [facility] Leukocytes [#/volume] in Blo od by Automated countOrdered By: Tatiana Galvez on 12-01-2023 WBC (Bld) [#/Vol] 7.5 10*3/uL Normal 3.8-11.6 [facility] Comment on above: Performed By: #### C BC, BNP, HS TROP, PT, BMP #### [facility] [address] [place] [address] [place] Lymphocytes [#/volume] in Bl ood by Automated countOrdered By: Tatiana Galvez on 12-01-2023 Lymphocytes (Bld) [#/Vol] 2.1 10*3/uL Normal 1.00-4.8 [facility] Comment on above: Performed By: #### C BC, BNP, HS TROP, PT, BMP #### [place] [address] [place] Lymphocytes/100 leukocytes i n Blood by Automated countOrdered By: Tatiana Galvez on 12-01-2023 Lymphocytes/100 WBC (Bld) 28.5 % Normal . [facility] Comment on above: Performed By: #### C BC, BNP, HS TROP, PT, BMP #### [place] [address] [place] MCH [Entitic mass] by Automa henry countOrdered By: Tatiana Galvez on 12-01-2023 MCH (RBC) [Entitic mass] 29.7 pg Normal 24.7-34.3 [facility] Comment on above: Performed By: #### C BC, BNP, HS TROP, PT, BMP #### [place] [address] [place] MCHC Auto (RBC) [Mass/Vol]Or dered By: Tatiana Galvez on 12-01-2023 MCHC (RBC) [Mass/Vol] 34.1 g/dL 32.0-35.0 [facility] MCV [Entitic volume] by Auto mated countOrdered By: Tatiana Galvez on 12-01-2023 MCV (RBC) [Entitic vol] 87.2 fL Normal 80-100 [facility] Comment on above: Performed By: #### C BC, BNP, HS TROP, PT, BMP #### [facility] [address] Monocyte distribution width [Entitic volume] in Blood by AutomatedOrdered By: Tatiana Galvez on 12-01-2023 Monocyte distribution width Auto (Bld) [Entitic vol] 22.41 % High 0.00-20.00 [facility] Comment on above: For adults in ED, MD W > 20.0 may be associated with a higher risk of sepsis during the first 12 hrs of hospital admission Neutrophils [#/volume] in Bl ood by Automated countOrdered By: Tatiana Galvez on 12-01-2023 Neutrophils (Bld) [#/Vol] 4.5 10*3/uL Normal 1.8-7.7 [facility] Comment on above: Performed By: #### C BC, BNP, HS TROP, PT, BMP #### [facility] [address] [place] [address] No Panel InformationOrdered By: Tatiana Galvez on 12-01-2023 Estimated GFR (CKD-EPI) 37.858 mL/Min [facility] Creatinine Clearance (Chem 37.72 [facility] Nucleated erythrocytes [Pres ence] in Blood by Automated countOrdered By: Tatiana Galvez on 12-01-2023 Nucleated RBC Auto Ql (Bld) 0.1 /100{WBC} 0-0.5 [facility] Platelet mean volume [Entiti c volume] in Blood by Automated countOrdered By: Tatiana Galvez on 12-01-2023 Platelet mean volume (Bld) [Entitic vol] 8.5 fL Normal 6.3-10.7 [facility] Comment on above: Performed By: #### C BC, BNP, HS TROP, PT, BMP #### [facility] [address] [place] [address] Platelets [#/volume] in Bloo d by Automated countOrdered By: Tatiana Galvez on 12-01-2023 Platelets (Bld) [#/Vol] 185 10*3/uL Normal 150-450 [facility] Comment on above: Performed By: #### C BC, BNP, HS TROP, PT, BMP #### [facility] [address] Potassium [Moles/volume] in Serum or PlasmaOrdered By: Tatiana Galvez on 12-01-2023 Potassium [Moles/Vol] 4.8 mmol/L Normal 3.5-5.1 [facility] Comment on above: Performed By: #### C BC, BNP, HS TROP, PT, BMP #### [address] Prothrombin time (PT)Ordered By: Tatiana Galvez on 12-01-2023 PT Coag (PPP) [Time] 18.3 s High 9.0-12.9 [facility] Comment on above: A hematocrit value g reater than 55% may lead to inaccurate results in coagulation testing. Patients having hematocrit values >55% require a special collection tube for coagulation studies. Please contact the laboratory at [phone] for redraw instructions. Result Comment: A he matocrit value greater than 55% may lead to inaccurate results in coagulation testing. Patients having hematocrit values >55% require a special collection tube for coagulation studies. Please contact the laboratory at [phone] for redraw instructions. Performed By: #### C BC, BNP, HS TROP, PT, BMP #### [address] Serum or plasma anion gap de terminationOrdered By: Tatiana Galvez on 12-01-2023 Anion gap [Moles/Vol] 13.5 mmol/L Normal 6.0-15.0 [facility] Comment on above: Performed By: #### C BC, BNP, HS TROP, PT, BMP #### [address] Sodium [Moles/volume] in Ser um or PlasmaOrdered By: Tatiana Galvez on 12-01-2023 Sodium [Moles/Vol] 138 mmol/L Normal 136-145 [facility] Comment on above: Performed By: #### C BC, BNP, HS TROP, PT, BMP #### [address] Troponin I High Sensitivityo n 12-01-2023 Troponin I High Sensitivity 7.2 pg/mL Normal 0.0-15.0 [facility] Comment on above: Result Comment: PERF ORMED BY: [place] [address] PATHOLOGIST OSTEOPATHIC PHYSICIAN ROWENA LIPSCOMB M.D. Performed By: #### H S TROP ####[address] Troponin I High Sensitivity 7.7 pg/mL Normal 0.0-15.0 [facility] Comment on above: Result Comment: PERF ORMED BY: [place] [address] PATHOLOGIST OSTEOPATHIC PHYSICIAN ROWENA LIPSCOMB M.D. Performed By: #### C BC, BNP, HS TROP, PT, BMP #### [address] Troponin I.cardiac [Mass/vol ume] in Serum or Plasma by Detection limit <= 0.01 ng/Ordered By: Melia Reynaga on 12-01-2023 Troponin I.cardiac DL <= 0.01 ng/mL [Mass/Vol] 7.2 pg/mL 0.0-15.0 [facility] Urea nitrogen [Mass/volume] in Serum or PlasmaOrdered By: Tatiana Galvez on 12-01-2023 Urea nitrogen [Mass/Vol] 26 mg/dL High 08-31 [facility] Comment on above: Performed By: #### C BC, BNP, HS TROP, PT, BMP #### [place] [id number] [place] XR chest 2V*on 12-01-2023 XR chest 2V* [facility] [place] [address] [place] [address] XRay Report Signed Patient: Eduardo Howard MR#: [id number] : 1945 Acct:[id number] Age/Sex: 78 / F ADM Date: 12/01/23 Loc: ER Room: Type: PRE ER Attending Dr: Copies to: Tatiana Galvez APRN TEMP, PROVIDER Ordering Provider: Tatiana Galvez APRN Date of Service: 12/01/23 XR/XR chest 2V*: Shortness of Breath/Dyspnea Plain film chest 2 view HISTORY: Shortness of breath. Dyspnea. COMPARISON: 03/25/2023 FINDINGS: SUPPORT DEVICES: None POSTSURGICAL CHANGES: None HEART: Within normal limits PULMONARY LAIREZA: Within normal limits MEDIASTINUM: Unremarkable LUNGS AND PLEURA: No acute lung process, pleural effusion or pneumothorax identified. BONY STRUCTURES: Intact ADDITIONAL FINDINGS None XR/XR chest 2V* IMPRESSION: No acute process. Impression dictated by: Andre Álvarez M.D.12/01/2023 2:08 PM Dictation Location: [place] [address] Transcribed By: [facility] 12/01/23 1408 Dictated By: Andre Álvarez DO 12/01/23 1407 Signed By: 12/01/23 1408 Normal [facility] POCT Protime / INRon 024 INR Coag (PPP) [Relative time] 1.4 {INR} Abnormal 0.8 - 1.2 [facility] Interpretation and review of laboratory results Abnormal [facility] POCT Protime / INRon 11-17- 024 INR Coag (PPP) [Relative time] 1.6 {INR} Abnormal 0.8 - 1.2 [facility] Interpretation and review of laboratory results Abnormal [facility] POCT Protime / INRon 11-10- 024 INR Coag (PPP) [Relative time] 2.3 {INR} Abnormal 0.8 - 1.2 [facility] Interpretation and review of laboratory results Abnormal [facility] POCT Protime / INRon 11-07- 024 INR Coag (PPP) [Relative time] 3.1 {INR} Abnormal 0.8 - 1.2 [facility] Interpretation and review of laboratory results Abnormal [facility] POCT Protime / INRon 024 INR Coag (PPP) [Relative time] 4.7 {INR} Abnormal 0.8 - 1.2 [facility] Interpretation and review of laboratory results Abnormal [facility] POCT Protime / INRon 024 INR Coag (PPP) [Relative time] 4.1 {INR} Abnormal 0.8 - 1.2 [facility] Interpretation and review of laboratory results Abnormal [facility] POCT Protime / INRon 024 INR Coag (PPP) [Relative time] 1.4 {INR} Abnormal 0.8 - 1.2 [facility] Interpretation and review of laboratory results Abnormal [facility] Aspartate aminotransferase [ Enzymatic activity/volume] in Serum or PlasmaOrdered By: Jose Martin Jones on 03-25-2023 AST [Catalytic activity/Vol] 21 U/L Normal 13-39 [facility] Comment on above: Performed By: #### T SH3, AST, BMP ####[place] [address] [address] Basic Metabolic Panelon 03-10 GFR/1.73 sq M.predicted MDRD (S/P/Bld) [Vol rate/Area] 38.094 mL/min/{1.73_m2} Normal [facility] Comment on above: Performed By: #### T SH3, AST, BMP ####[place] [address] [address] Calcium [Mass/volume] in Ser um or PlasmaOrdered By: Jose Martin Jones on 03-25-2023 Calcium [Mass/Vol] 9.2 mg/dL Normal 8.6-10.3 [facility] Comment on above: Performed By: #### T SH3, AST, BMP ####[facility] [place] [id number] [facility] Carbon dioxide, total [Moles /volume] in Serum or PlasmaOrdered By: Jose Martin Jones on 03-25-2023 CO2 [Moles/Vol] 27.7 mmol/L Normal 21.0-31.0 [facility] Comment on above: Performed By: #### T SH3, AST, BMP ####[place] [address] [place] [id number] [facility] Chloride [Moles/volume] in S josesito or PlasmaOrdered By: Jose Martin Jones on 03-25-2023 Chloride [Moles/Vol] 108 mmol/L High 98-107 [facility] Comment on above: Performed By: #### T SH3, AST, BMP ####[place] [address] [place] [id number] [facility] Creatinine [Mass/volume] in Serum or PlasmaOrdered By: Jose Martin Jones on 03-25-2023 Creatinine [Mass/Vol] 1.42 mg/dL High 0.60-1.20 [facility] Comment on above: Performed By: #### T SH3, AST, BMP ####[place] [address] [place] [id number] [facility] Glucose [Mass/volume] in Ser um or PlasmaOrdered By: Jose Martin Jones on 03-25-2023 Glucose [Mass/Vol] 96 mg/dL Normal 70-100 [facility] Comment on above: ADA recommended refe rence rangeRandom Glucose Reference Range is dependent on time and content of last meal. Glucose of more than 200 mg/dL in a nonstressed, ambulatory subject supports the diagnosis of Diabetes Mellitus. Result Comment: [place] [facility] Glucose Reference Range is dependent on time and content of last meal. Glucose of more than 200 mg/dL in a nonstressed, ambulatory subject supports the diagnosis of Diabetes Mellitus. ADA recommended reference range Performed By: #### T SH3, AST, BMP ####[place] [address] [place] [id number] [facility] No Panel InformationOrdered By: Jose Martin Jones on 03-25-2023 Estimated GFR (CKD-EPI) 38.094 mL/Min [facility] Creatinine Clearance (Chem N/A [facility] Potassium [Moles/volume] in Serum or PlasmaOrdered By: Jose Martin Jones on 03-25-2023 Potassium [Moles/Vol] 4.1 mmol/L Normal 3.5-5.1 [facility] Comment on above: Performed By: #### T SH3, AST, BMP ####[place] [id number] [facility] Serum or plasma anion gap de terminationOrdered By: Jose Martin Jones on 03-25-2023 Anion gap [Moles/Vol] 10.4 mmol/L Normal 6.0-15.0 [facility] Comment on above: Performed By: #### T SH3, AST, BMP ####[place] [address] [place] [id number] [facility] Sodium [Moles/volume] in Ser um or PlasmaOrdered By: Jose Martin Jones on 03-25-2023 Sodium [Moles/Vol] 142 mmol/L Normal 136-145 [facility] Comment on above: Performed By: #### T NANI, AST, BMP ####[address] Thyrotropin [Units/volume] i n Serum or PlasmaOrdered By: Jose Martin Jones on 03-25-2023 TSH Qn 0.86 m[IU]/L Normal 0.45-5.33 [facility] Comment on above: Result Comment: PERF ORMED BY: [place] [address] PATHOLOGIST OSTEOPATHIC PHYSICIAN ROWENA LIPSCOMB M.D. Performed By: #### T SH3, AST, BMP ####[place] [id number] [facility] Urea nitrogen [Mass/volume] in Serum or PlasmaOrdered By: Jose Martin Jones on 03-25-2023 Urea nitrogen [Mass/Vol] 29 mg/dL High 7-25 [facility] Comment on above: Performed By: #### T SH3, AST, BMP ####[place] [id number] [facility] XR chest 2V*on 03-25-2023 XR chest 2V* [facility] [address] [place] [address] [place] [address] XRay Report Signed Patient: Col[place]wood,Eduardo A MR#: [id number] : 1945 Acct:[id number] Age/Sex: 77 / F ADM Date: 03/25/23 Loc: RT Room: Type: [facility] Attending Dr: Jose Martin Jones MD [...] Hollins Jr., D.O.03/25/2023 3:20 PM Dictation Location: [place] [address] Transcribed By: [facility] 03/25/23 1520 Dictated By: Betito Hollins Jr, DO 03/25/23 1520 Signed By: 03/25/23 1520 Normal [facility] NM Heart Perfusion W stress [...] Yvonne Haas 03/14/2023 3:46 PM Dictation workstation: [id number] Interpreted By: Yvonne Dow, and Keith Fleming STUDY: MYOCARDIAL PERFUSION STRESS TEST WITH LEXISCAN Performing facility: [facility], [address] [place] [address], [address], [place] [address] [facility] Provider: Delilah Turner RN, PERSONNEL GENERALIST MANAGER PCP: Dr. Shelia Wiseman Supervising provider: Nathaly Velez MD INDICATION: Cardiomyopathy A-fib HTN Abnormal EKG; HISTORY: Gender: F; Age: 77 y/o ; Height: HT 167.6 cm cm; Weight: WT 94.802 kg kg. Abnormal EKG; HTN; Arrhythmias; Denies smoking. COMPARISON: Previous nuclear testing completed at [facility]. ACCESSION NUMBER(S): [id number] ORDERING CLINICIAN: DELILAH TURNER TECHNIQUE: ONE DAY [...] PERFUSION STRESS TEST WITH LEXISCAN Performing facility: [facility], [address] [place] [address], [address], [address] Provider: Delilah Turner RN, PERSONNEL GENERALIST MANAGER PCP: Dr. Shelia Wiseman Supervising provider: Nathaly Velez MD INDICATION: Cardiomyopathy A-fib HTN Abnormal EKG; HISTORY: Gender: F; Age: 77 y/o ; Height: HT 167.6 cm cm; Weight: WT 94.802 kg kg. Abnormal EKG; HTN; Arrhythmias; Denies smoking. COMPARISON: Previous nuclear testing completed at [facility]. ACCESSION NUMBER(S): [id number] ORDERING CLINICIAN: DELILAH TURNER TECHNIQUE: ONE DAY [...] Yvonne Haas 03/14/2023 3:46 PM Dictation workstation: [id number] [place] Work Phone: Radiology Study observation (narrative) [place] Work Phone: [place] Heart Perfusion W stress and W radionuclide IVOrdered By: Yvonne Haas on 03-14-2023 [place] Work Phone: Basic Metabolic Panelon 02-07 GFR/1.73 sq M.predicted MDRD (S/P/Bld) [Vol rate/Area] 34.560 mL/min/{1.73_m2} Normal [facility] Comment on above: Performed By: #### T SH3, BMP ####[place] [address] [place] [address] [place] Calcium [Mass/volume] in Ser um or PlasmaOrdered By: Delilah Turner on 02-21-2023 Calcium [Mass/Vol] 9.6 mg/dL Normal 8.6-10.3 [facility] Comment on above: Performed By: #### T SH3, BMP ####[place] [address] [place] [address] [place] Carbon dioxide, total [Moles /volume] in Serum or PlasmaOrdered By: Delilah Turner on 02-21-2023 CO2 [Moles/Vol] 29.9 mmol/L Normal 21.0-31.0 [facility] Comment on above: Performed By: #### T SH3, BMP ####[address] [address] [place] Chloride [Moles/volume] in S josesito or PlasmaOrdered By: Delilah Turner on 02-21-2023 Chloride [Moles/Vol] 106 mmol/L Normal 98-107 [facility] Comment on above: Performed By: #### T SH3, BMP ####[address] [address] [place] Creatinine [Mass/volume] in Serum or PlasmaOrdered By: Delilah Turner on 02-21-2023 Creatinine [Mass/Vol] 1.54 mg/dL High 0.60-1.20 [facility] Comment on above: Performed By: #### T SH3, BMP ####[place] [address] [place] [address] [place] Glucose [Mass/volume] in Ser um or PlasmaOrdered By: Delilah Turner on 02-21-2023 Glucose [Mass/Vol] 79 mg/dL Normal 70-100 [facility] Comment on above: ADA recommended refe rence rangeRandom Glucose Reference Range is dependent on time and content of last meal. Glucose of more than 200 mg/dL in a nonstressed, ambulatory subject supports the diagnosis of Diabetes Mellitus. Result Comment: [facility] Glucose Reference Range is dependent on time and content of last meal. Glucose of more than 200 mg/dL in a nonstressed, ambulatory subject supports the diagnosis of Diabetes Mellitus. ADA recommended reference range Performed By: #### T SH3, BMP ####[place] [address] [place] [id number] [facility] No Panel InformationOrdered By: Delilah Turner on 02-21-2023 Estimated GFR (CKD-EPI) 34.560 mL/Min [facility] Creatinine Clearance (Chem N/A [facility] Potassium [Moles/volume] in Serum or PlasmaOrdered By: Delilah Turner on 02-21-2023 Potassium [Moles/Vol] 4.9 mmol/L Normal 3.5-5.1 [facility] Comment on above: Performed By: #### T SH3, BMP ####[place] [address] Serum or plasma anion gap de terminationOrdered By: Delilah Turner on 02-21-2023 Anion gap [Moles/Vol] 10.0 mmol/L Normal 6.0-15.0 [facility] Comment on above: Performed By: #### T SH3, BMP ####[place] [address] [place] [id number] [facility] Sodium [Moles/volume] in Ser um or PlasmaOrdered By: Delilah Turner on 02-21-2023 Sodium [Moles/Vol] 141 mmol/L Normal 136-145 [facility] Comment on above: Performed By: #### T SH3, BMP ####[place] [address] [place] [id number] [facility] Thyrotropin [Units/volume] i n Serum or PlasmaOrdered By: Delilah Turner on 02-21-2023 TSH Qn 1.23 m[IU]/L Normal 0.45-5.33 [facility] Comment on above: Result Comment: PERF ORMED BY: [facility] [address] [place] [id number] PATHOLOGIST OSTEOPATHIC PHYSICIAN ROWENA LIPSCOMB M.D. Performed By: #### T SH3, BMP ####[facility] [id number] [place] [address] [facility] Urea nitrogen [Mass/volume] in Serum or PlasmaOrdered By: Delilah Turner on 02-21-2023 Urea nitrogen [Mass/Vol] 33 mg/dL High 7-25 [facility] Comment on above: Performed By: #### T SH3, BMP ####[facility] [id number] [place] [id number] [facility] Heart TransthoracicOrdere d By: Jose Martin Jones on 01-22-2023 Aortic Valve Area by Continuity of Peak Velocity 2.34 [place] Work Phone: Aortic Valve Area by Continuity of VTI 2.40 [place] Work Phone: AV mn grad 4.0 [place] Work Phone: AV pk grad 8.2 [place] Work Phone: [phone] AV pk kristie 1.43 [place] Work Phone: [phone] LV A4C EF 31.2 [place] Work Phone: [phone] LVIDd 5.60 [place] Work Phone: [phone] LVOT diam 2.30 [place] Work Phone: [phone] MV avg E/e' ratio 7.90 [facility] Work Phone: [phone] MV E/A ratio 1.77 [place] Work Phone: RVSP 29.8 [place] Work Phone: [place] Work Phone: [phone] Heart Transthoracicon [address], [address], [place] [address] TRANSTHORACIC ECHOCARDIOGRAM REPORT Patient Name: EDUARDO Desai Physician: [id number] Jose Martin Jones MD Study Date: 01/21/2023 Ordering Provider: [id number] DELILAH TURNER MRN/PID: [id number] Fellow: Nurse: Date of /Age: 7 1945 / years Mascara Molder: KEENAN Gender: F Additional Staff: Height: 167.64 cm Admit Date: Weight: 97.07 kg Admission Status: BSA: 2.06 m2 Department Location: [facility] Blood Pressure: 140 /84 mmHg Study Type: TRANSTHORACIC ECHO (TTE) COMPLETE Diagnosis/ICD: Cardiomyopathy, unspecified-I42.9; Abnormal electrocardiogram [ECG] [EKG]-R94.31 Indication: Paroxysmal Atrial Fibrillation, Mild CAD, HTN, Shortness of Breath CPT Codes: Echo Complete w Full Doppler-44999 Study Detail: The following Echo studies were [...] DEMETRIUSO Jose Martin Jones MD - 01/22/[address], [address], [place] [address] TRANSTHORACIC ECHOCARDIOGRAM REPORT Patient Name: EDUARDO HOWARD Reading Physician: [id number] Jose Martin Jones MD Study Date: 01/21/2023 Ordering Provider: [id number] DELILAH TURNER MRN/PID: [id number] Fellow: Nurse: Date of /Age: 7 1945 / years Mascara Molder: KEENAN Gender: F Additional Staff: Height: 167.64 cm Admit Date: Weight: 97.07 kg Admission Status: BSA: 2.06 m2 Department Location: [facility] Blood Pressure: 140 /84 mmHg Study Type: TRANSTHORACIC ECHO (TTE) COMPLETE Diagnosis/ICD: Cardiomyopathy, unspecified-I42.9; Abnormal electrocardiogram [ECG] [EKG]-R94.31 Indication: Paroxysmal Atrial Fibrillation, Mild CAD, HTN, Shortness of Breath CPT Codes: Echo Complete w Full Doppler-77397 Study Detail: The following Echo studies were [...] mmHg PIEDV: 1.92 m/s PADP: 17.7 mmHg [id number] Jose Martin Jones MD Electronically signed on 01/22/2023 at 4:07:35 PM Final [place] Work Phone: Alanine aminotransferase [En zymatic activity/volume] in Serum or PlasmaOrdered By: Andrei Wiseman on 08-05-2022 ALT [Catalytic activity/Vol] 28 U/L 7-52 [facility] Albumin [Mass/volume] in Ser um or Plasma by Bromocresol green (BCG) dye binding methoOrdered By: Andrei Wiseman on 08-05-2022 Albumin BCG dye [Mass/Vol] 4.0 g/dL 3.5-5.7 [facility] Alkaline phosphatase [Enzyma tic activity/volume] in Serum or PlasmaOrdered By: Andrei Wiseman on 08-05-2022 ALP [Catalytic activity/Vol] 70 U/L 34-104 [facility] Aspartate aminotransferase [ Enzymatic activity/volume] in Serum or PlasmaOrdered By: Andrei Wiseman on 08-05-2022 AST [Catalytic activity/Vol] 29 U/L 13-39 [facility] Basophils Auto (Bld) [#/Vol] Ordered By: Andrei Wiseman on 08-05-2022 Basophils (Bld) [#/Vol] 0.1 10*3/uL 0.0-0.2 [facility] Basophils/100 WBC Auto (Bld) Ordered By: Andrei Wiseman on 08-05-2022 Basophils/100 WBC (Bld) 1.1 % . [facility] Bilirubin.total [Mass/volume ] in Serum or PlasmaOrdered By: Andrei Wiseman on 08-05-2022 Bilirubin [Mass/Vol] 0.8 mg/dL 0.3-1.0 [facility] Calcium [Mass/volume] in Ser um or PlasmaOrdered By: Andrei Wiseman on 08-05-2022 Calcium [Mass/Vol] 8.7 mg/dL 8.6-10.3 [facility] Carbon dioxide, total [Moles /volume] in Serum or PlasmaOrdered By: Andrei Wiseman on 08-05-2022 CO2 [Moles/Vol] 26.5 mmol/L 21.0-31.0 [facility] Chloride [Moles/volume] in S josesito or PlasmaOrdered By: Andrei Wiseman on 08-05-2022 Chloride [Moles/Vol] 109 mmol/L 98-107 [facility] Cholesterol [Mass/volume] in Serum or PlasmaOrdered By: Andrei Wiseman on 08-05-2022 Cholesterol [Mass/Vol] 159 mg/dL 140-200 [facility] Comment on above: Chol less than 200 m g/dl low riskChol 201-239 mg/dl borderline riskChol 240 mg/dl and greater high risk Cholesterol in LDL Calc [Mas s/Vol]Ordered By: Andrei Wiseman on 08-05-2022 Cholesterol in LDL [Mass/Vol] 87 mg/dL 0-100 [facility] Comment on above: LDL ATP III CLASSIFI CATIONLDL less than 100 mg/dL OptimalLDL 100-129 mg/dL Near or above optimalLDL 130-159 mg/dL Borderline highLDL 160-189 mg/dL HighLDL greater than 189 mg/dL Very high Cholesterol in VLDL Calc [Ma ss/Vol]Ordered By: Andrei Wiseman on 08-05-2022 Cholesterol in VLDL [Mass/Vol] 22 mg/dL [facility] Creatinine [Mass/volume] in Serum or PlasmaOrdered By: Andrei Wiseman on 08-05-2022 Creatinine [Mass/Vol] 1.55 mg/dL 0.60-1.20 [facility] Eosinophils Auto (Bld) [#/Vo l]Ordered By: Andrei Wiseman on 08-05-2022 Eosinophils (Bld) [#/Vol] 0.4 10*3/uL 0.0-0.45 [facility] Eosinophils/100 WBC Auto (Bl d)Ordered By: Andrei Wiseman on 08-05-2022 Eosinophils/100 WBC (Bld) 6.1 % . [facility] Erythrocyte distribution wid th Auto (RBC) [Ratio]Ordered By: Andrei Wiseman on 08-05-2022 Erythrocyte distribution width (RBC) [Ratio] 14.1 % 11.9-15.3 [facility] Globulin Calc (S) [Mass/Vol] Ordered By: Andrei Wiseman on 08-05-2022 Globulin (S) [Mass/Vol] 2.4 g/dL [facility] Glucose [Mass/volume] in Ser um or PlasmaOrdered By: Andrei Wiseman on 08-05-2022 Glucose [Mass/Vol] 79 mg/dL 70-100 [facility] Comment on above: ADA recommended refe rence rangeRandom Glucose Reference Range is dependent on time and content of last meal. Glucose of more than 200 mg/dL in a nonstressed, ambulatory subject supports the diagnosis of Diabetes Mellitus. Hematocrit Auto (Bld) [Volum e fraction]Ordered By: Andrei Wiseman on 08-05-2022 Hematocrit (Bld) [Volume fraction] 42.1 % 34.0-46.4 [facility] Hemoglobin [Mass/volume] in BloodOrdered By: Andrei Wiseman on 08-05-2022 Hemoglobin (Bld) [Mass/Vol] 13.9 g/dL 11.8-15.4 [facility] [facility] Leuk[facility] [#/volume] correc henry for nucleated erythrocytes in Blood by Automated counOrdered By: Andrei Wiseman on 08-05-2022 WBC corrected for nucl RBC Auto (Bld) [#/Vol] 5.9 10*3/uL 3.8-11.6 [facility] Lymphocytes Auto (Bld) [#/Vo l]Ordered By: Andrei Wiseman on 08-05-2022 Lymphocytes (Bld) [#/Vol] 1.7 10*3/uL 1.00-4.8 [facility] Lymphocytes/100 WBC Auto (Bl d)Ordered By: Anderi Wiseman on 08-05-2022 Lymphocytes/100 WBC (Bld) 28.9 % . [facility] MCH Auto (RBC) [Entitic mass ]Ordered By: Andrei Wiseman on 08-05-2022 MCH (RBC) [Entitic mass] 29.1 pg 24.7-34.3 [facility] MCHC Auto (RBC) [Mass/Vol]Or dered By: Andrei Wiseman on 08-05-2022 MCHC (RBC) [Mass/Vol] 33.1 g/dL 32.0-35.0 [facility] MCV Auto (RBC) [Entitic vol] Ordered By: Andrei Wiseman on 08-05-2022 MCV (RBC) [Entitic vol] 87.8 fL 80-100 [facility] Monocytes Auto (Bld) [#/Vol] Ordered By: Andrei Wiseman on 08-05-2022 Monocytes (Bld) [#/Vol] 0.6 10*3/uL 0.0-0.8 [facility] Monocytes/100 WBC Auto (Bld) Ordered By: Andrei Wiseman on 08-05-2022 Monocytes/100 WBC (Bld) 9.8 % . [facility] Neutrophils Auto (Bld) [#/Vo l]Ordered By: Andrei Wiseman on 08-05-2022 Neutrophils (Bld) [#/Vol] 3.2 10*3/uL 1.8-7.7 [facility] Neutrophils/100 WBC Auto (Bl d)Ordered By: Andrei Wiseman on 08-05-2022 Neutrophils/100 WBC (Bld) 54.1 % . [facility] No Panel InformationOrdered By: Andrei Wiseman on 08-05-2022 Estimated GFR (CKD-EPI) 34.508 mL/Min [facility] Creatinine Clearance (Chem N/A [facility] Nucleated erythrocytes [Pres ence] in Blood by Automated countOrdered By: Andrei Wiseman on 08-05-2022 Nucleated RBC Auto Ql (Bld) 0.1 /100{WBC} 0-0.5 [facility] Platelet mean volume Auto (B ld) [Entitic vol]Ordered By: Andrei Wiseman on 08-05-2022 Platelet mean volume (Bld) [Entitic vol] 8.5 fL 6.3-10.7 [facility] Platelets Auto (Bld) [#/Vol] Ordered By: Andrei Wiseman on 08-05-2022 Platelets (Bld) [#/Vol] 154 10*3/uL 150-450 [facility] Potassium [Moles/volume] in Serum or PlasmaOrdered By: Andrei Wiseman on 08-05-2022 Potassium [Moles/Vol] 4.5 mmol/L 3.5-5.1 [facility] Protein [Mass/volume] in Ser um or PlasmaOrdered By: Andrei Wiseman on 08-05-2022 Protein [Mass/Vol] 6.4 g/dL 6.4-8.9 [facility] RBC Auto (Bld) [#/Vol]Ordere d By: Andrei Wiseman on 08-05-2022 RBC (Bld) [#/Vol] 4.80 10*6/uL 3.60-5.00 [facility] Radiologyon 08-05-2022 XR Chest 2 Views Normal -[facility] [address] DO Work Phone: Serum or plasma albumin/glob ulin mass ratioOrdered By: Andrei Wiseman on 08-05-2022 Albumin/Globulin [Mass ratio] 1.7 {ratio} [facility] Serum or plasma anion gap de terminationOrdered By: Andrei Wiseman on 08-05-2022 Anion gap [Moles/Vol] 11.0 mmol/L 6.0-15.0 [facility] Serum or plasma high density lipoprotein (HDL) cholesterol measurementOrdered By: Andrei Wiseman on 08-05-2022 Cholesterol in HDL [Mass/Vol] 49 mg/dL 23-92 [facility] Comment on above: HDL CHOL ATP-III CLA SSIFICATION Cardiovascular RiskHDL > or equal to 60 mg/dL LOWHDL < 40 mg/dL HIGH Serum or plasma total choles terol/high density lipoprotein (HDL) cholesterol mass ratOrdered By: Andrei Wiseman on 08-05-2022 Cholesterol.total/Chol esterol in HDL [Mass ratio] 3.2 {ratio} <5.0 [facility] Sodium [Moles/volume] in Ser um or PlasmaOrdered By: Andrei Wiseman on 08-05-2022 Sodium [Moles/Vol] 142 mmol/L 136-145 [facility] Thyrotropin [Units/volume] i n Serum or PlasmaOrdered By: Andrei Wiseman on 08-05-2022 TSH Qn 1.66 m[IU]/L 0.45-5.33 [facility] Thyroxine (T4) free [Mass/vo lume] in Serum or PlasmaOrdered By: Andrei Wiseman on 08-05-2022 Free T4 [Mass/Vol] 1.92 ng/dL 0.61-1.12 [facility] Triglyceride [Mass/volume] i n Serum or PlasmaOrdered By: Andrei Wiseman on 08-05-2022 Triglyceride [Mass/Vol] 113 mg/dL 0-149 [facility] Comment on above: TRIG ATP III CLASSIF ICATIONTRIG less than 150 mg/dL NormalTRIG 150-199 mg/dL Borderline highTRIG 200-500 mg/dL High TRIG greater than 500 mg/dL Very highStandard traceable to the Center for Disease Conrtrol and Prevention (CDC) test method. Urea nitrogen [Mass/volume] in Serum or PlasmaOrdered By: Andrei Wiseman on 08-05-2022 Urea nitrogen [Mass/Vol] 26 mg/dL 7-25 [facility] WBC Auto (Bld) [#/Vol]Ordere d By: Andrei Wiseman on 08-05-2022 WBC (Bld) [#/Vol] 5.9 10*3/uL 3.8-11.6 [facility] Tobacco Screening.on 023 Adult depression screening assessment No [facility] [address] DO Work Phone: Fall risk assessment a) No falls within the last year [facility] [address] DO Work Phone: Tobacco use status CPHS b) No [facility] [address] DO Work Phone: Aspartate aminotransferase [ Enzymatic activity/volume] in Serum or PlasmaOrdered By: Jose Martin Jones on 04-27-2022 AST [Catalytic activity/Vol] 30 U/L 13-39 [facility] Calcium [Mass/volume] in Ser um or PlasmaOrdered By: Jose Martin Jones on 04-27-2022 Calcium [Mass/Vol] 9.5 mg/dL 8.6-10.3 [facility] Carbon dioxide, total [Moles /volume] in Serum or PlasmaOrdered By: Jose Martin Jones on 04-27-2022 CO2 [Moles/Vol] 26.1 mmol/L 21.0-31.0 [facility] Chloride [Moles/volume] in S josesito or PlasmaOrdered By: Jose Martin Jones on 04-27-2022 Chloride [Moles/Vol] 105 mmol/L 98-107 [facility] Creatinine [Mass/volume] in Serum or PlasmaOrdered By: Jose Martin Jones on 04-27-2022 Creatinine [Mass/Vol] 1.68 mg/dL 0.60-1.20 [facility] Glucose [Mass/volume] in Ser um or PlasmaOrdered By: Jose Martin Jones on 04-27-2022 Glucose [Mass/Vol] 93 mg/dL 74-109 [facility] Comment on above: ADA recommended refe rence rangeRandom Glucose Reference Range is dependent on time and content of last meal. Glucose of more than 200 mg/dL in a nonstressed, ambulatory subject supports the diagnosis of Diabetes Mellitus. Laboratory - Chemistry and C hemistry - challengeOrdered By: Jose Martin Jones on 04-27-2022 GFR/1.73 sq M.predicted MDRD (S/P/Bld) [Vol rate/Area] 31.328 mL/min/{1.73_m2} [facility] No Panel InformationOrdered By: Jose Martin Jones on 04-27-2022 Pharmacy Creatinine Clearance (Chem N/A [facility] No Panel Informationon 04-27 30\S\30 Normal 13-39 [facility] [address] DO Work Phone: 31.328\S\31.328 Normal [facility] [address] DO Work Phone: 15.4\S\15.4 above high threshold 6.0-15.0 -[facility] [address] DO Work Phone: 9.5\S\9.5 Normal 8.6-10.3 [facility] [address] DO Work Phone: 26.1\S\26.1 Normal 21.0-31.0 [facility] [address] DO Work Phone: 105\S\105 Normal 98-107 [facility] [address] DO Work Phone: 4.5\S\4.5 Normal 3.5-5.1 [facility] [address] DO Work Phone: 142\S\142 Normal 136-145 [facility] [address] DO Work Phone: 1.68\S\1.68 above high threshold 0.60-1.20 [facility] [address] DO Work Phone: 32\S\32 above high threshold 7-25 -[facility] [address] DO Work Phone: 93\S\93 Normal 74-109 [facility] [address] DO Work Phone: Comment on above: Random Glucose Refer ence Range is dependent on time and content of last meal. Glucose of more than 200 mg/dL in a nonstressed, ambulatory subject supports the diagnosis of Diabetes Mellitus. ADA recommended reference range 1.23\S\1.23 Normal 0.45-5.33 [facility] 250 DO Work Phone: Comment on above: PERFORMED BY:[id number] [place], [place] [id number] MEDICAL DIRECTORROWENA LIPSCOMB M.D. Potassium [Moles/volume] in Serum or PlasmaOrdered By: Jose Martin Jones on 04-27-2022 Potassium [Moles/Vol] 4.5 mmol/L 3.5-5.1 [facility] Radiologyon 04-27-2022 XR Chest 2 Views Normal [facility] 250 DO Work Phone: Serum or plasma anion gap de terminationOrdered By: Jose Martin Jones on 04-27-2022 Anion gap [Moles/Vol] 15.4 mmol/L 6.0-15.0 [facility] Sodium [Moles/volume] in Ser um or PlasmaOrdered By: Jose Martin Jones on 04-27-2022 Sodium [Moles/Vol] 142 mmol/L 136-145 [facility] Thyrotropin [Units/volume] i n Serum or PlasmaOrdered By: Jose Martin Jones on 04-27-2022 TSH Qn 1.23 m[IU]/L 0.45-5.33 [facility] Urea nitrogen [Mass/volume] in Serum or PlasmaOrdered By: Jose Martin Jones on 04-27-2022 Urea nitrogen [Mass/Vol] 32 mg/dL 7-25 [facility] Creatinine and Glomerular fi ltration rate.predicted panel (S/P/Bld)Ordered By: Jose Martin Jones on 01-21-2022 Creatinine [Mass/Vol] 1.34 mg/dL 0.44-1.03 [facility] Estimated glomerular filtrat ion rate (GFR) non- AmericanOrdered By: Jose Martin Jones on 01-21-2022 GFR/1.73 sq M.predicted among non-blacks MDRD (S/P/Bld) [Vol rate/Area] 38 mL/Min [facility] No Panel InformationOrdered By: Jose Martin Jones on 01-21-2022 Estimated GFR () 47 mL/Min [facility] Comment on above: GFR estimated refere nce range: According to KDOQI guidelines, <60 ml/min/1.73m2 is sufficient to diagnose a patient with chronic kidney disease. Pharmacy Creatinine Clearance (Chem N/A [facility] No Panel Informationon 01-21 1.19\S\1.19 Normal 0.45-5.33 [facility] [address] DO Work Phone: Comment on above: PERFORMED BY:[address] [place], [place] [phone] MEDICAL DIRECTORROWENA LIPSCOMB M.D. 22\S\22 Normal 10-42 [facility] [address] DO Work Phone: 10.7\S\10.7 Normal 6.0-15.0 [facility] [address] DO Work Phone: 8.7\S\8.7 Normal 8.2-10.2 [facility] [address] DO Work Phone: 25.5\S\25.5 Normal 22.0-30.0 [facility] [address] DO Work Phone: [phone] 108\S\108 Normal 95-114 [facility] [address] DO Work Phone: 4.2\S\4.2 Normal 3.5-5.1 [facility] [address] DO Work Phone: 140\S\140 Normal 136-146 [facility] [address] DO Work Phone: 47\S\47 Normal [facility] [address] DO Work Phone: Comment on above: GFR estimated refere nce range: According to KDOQI guidelines, <60 ml/min/1.73m2 is sufficient to diagnose a patient with chronic kidney disease. 38\S\38 Normal [employer] [facility] 250 DO Work Phone: 1.34\S\1.34 above high threshold 0.44-1.03 [facility] 250 DO Work Phone: 16\S\16 Normal 9-23 [employer] 250 DO Work Phone: 67\S\67 below low threshold 70-100 [facility] Ku DO Work Phone: Comment on above: Random [...] Weight Tips; Status:Complete - Retrospective Authorization; Done: [id number] Some eating tips that can help you lose weight.; Status:Complete - Retrospective Authorization; Done: [id number] Paroxysmal atrial fibrillation IO EKG Electrocardiogram- 12 Lead; Status:Complete; Done: [id number] SocHx: Never a smoker Tobacco Use Screening; Status:Complete; Done: [id number] Unlinked Stop: Metoprolol Tartrate 100 MG Oral [...] negative for complaint. Vitals Vital Signs Recorded: [id number] 02:17PM Heart Rate47, Apical Rynwexej438, RUE, Sitting Tmkognogf34, (more content not included)... Normal [facility] Radiologyon 01-21-2022 XR Chest 2 Views Normal -[facility] [address] DO Work Phone: Serum or plasma anion gap de terminationOrdered By: Jose Martin Jones on 01-21-2022 Anion gap [Moles/Vol] 10.7 mmol/L 6.0-15.0 [facility] Serum or plasma aspartate am inotransferase measurement (enzymatic activity/volume)Ordered By: Jose Martin Jones on 01-21-2022 AST [Catalytic activity/Vol] 22 U/L 10- [facility] Serum or plasma calcium michael urement (mass/volume)Ordered By: Jose Martin Jones on 01-21-2022 Calcium [Mass/Vol] 8.7 mg/dL 8.2-10.2 [facility] Serum or plasma chloride diane surement (moles/volume)Ordered By: Jose Martin Jones on 01-21-2022 Chloride [Moles/Vol] 108 mmol/L 95-114 [facility] Serum or plasma glucose michael urement (mass/volume)Ordered By: Jose Martin Jones on 01-21-2022 Glucose [Mass/Vol] 67 mg/dL 70-100 [facility] Comment on above: ADA recommended refe rence rangeRandom Glucose Reference Range is dependent on time and content of last meal. Glucose of more than 200 mg/dL in a nonstressed, ambulatory subject supports the diagnosis of Diabetes Mellitus. Serum or plasma potassium me asurement (moles/volume)Ordered By: Jose Martin Jones on 01-21-2022 Potassium [Moles/Vol] 4.2 mmol/L 3.5-5.1 [facility] Serum or plasma sodium measu rement (moles/volume)Ordered By: Jose Martin Jones on 01-21-2022 Sodium [Moles/Vol] 140 mmol/L 136-146 [facility] Serum or plasma total carbon dioxide measurement (moles/volume)Ordered By: Jose Martin Jones on 01-21-2022 CO2 [Moles/Vol] 25.5 mmol/L 22.0-30.0 [facility] Serum or plasma urea nitroge n measurement (mass/volume)Ordered By: Jose Martin Jones on 01-21-2022 Urea nitrogen [Mass/Vol] 16 mg/dL 9-23 [facility] TSH DL <= 0.005 mIU/L QnOrde red By: Jose Martin Jones on 01-21-2022 TSH Qn 1.19 m[IU]/L 0.45-5.33 [facility] Tobacco Screening.on 022 Fall risk assessment a) No falls within the last year [facility] [facility] 250 DO Work Phone: Tobacco use status CP b) No -[facility] [address] DO Work Phone: Cardiovasc Arrhythmia Result son 11-10-2021 Cardiovasc Arrhythmia Results Reason For Visit Reason for Visit: Holter Monitor: EDUARDO is here for the application of a 24 hour Holter monitor. Ordering Physician: Delilah Flores NP Diagnosis: PAF, SOB [facility] equipment agreement signed. EDUARDO understands monitor is to be returned on: 11/11/21 Monitor number [id number] applied. Procedure Holter monitor returned with diary [...] Nov 13 2021 5:17PM EST (Author) Normal [facility] Office Visit (Cardiology)on 11-03-2021 Follow-up visit Diagnoses/Problems [...] prior EF 30-35% August 2021 Echo AND 2014 45% - cath trivial disease) FC II [...] in adult Healthy Weight Tips; Status:Complete; Done: [id number] Paroxysmal atrial fibrillation IO Holter Monitor up to 48 Hrs; Status:Complete; Done: 68Iao6316 Patient Instructions Please bring all medicines, vitamins, [...] (Z86.79) History (more content not included)... Normal [employer] Tobacco Screening.on 022 Fall risk assessment a) No falls within the last year [facility] [employer] [address] 250 DO Work Phone: Tobacco use status CPHS b) No [facility] [address] DO Work Phone: [facility] CARDIAC STRESS/REST INJE CTIONon 09-21-2021 [facility] CARDIAC STRESS/REST INJECTION Patient Name: EDUARDO HOWARD STUDY: MYOCARDIAL PERFUSION STRESS TEST WITH LEXISCAN Performing facility: [facility], [address] [place] [address], [address], [place] [address] [facility] Provider: Delilah Turner RN, PERSONNEL GENERALIST MANAGER PCP: Dr. Shelia Wiseman Supervising provider: Delilah Turner RN, PERSONNEL GENERALIST MANAGER INDICATION: A-fib Cardiomyopathy HISTORY: Gender: F; Age: 76 y/o ; Height: 0 cm; Weight: 0 kg. CAD; Family HX CAD; HTN; Arrhythmias; Denies smoking. COMPARISON: No comparison. ACCESSION NUMBER(S): [id number]; [id number]; [id number] ORDERING CLINICIAN: DELILAH TURNER TECHNIQUE: TWO DAY [...] Electronically signed by: YVONNE HAAS MD Normal [facility] No Panel Informationon 09-21 Normal -[facility] [address] DO Work Phone: Office [...] in adult Healthy Weight Tips; Status:Complete; Done: [id number] Unlinked Stop: Potassium Chloride [facility] 20 [...] contact the office if new symptoms arise. 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 Normal [employer] Tobacco Screening.on 022 Adult depression screening assessment No [facility] Ku DO Work Phone: Fall risk assessment b) One or more fall s in the last year [facility] DO Work Phone: Tobacco use status CPHS b) No [facility] 250 DO Work Phone: Echocardiogramon 08-31-[address], [address] [place] [address] TRANSTHORACIC ECHOCARDIOGRAM REPORT Patient Name: EDUARDO Desai Physician: [id number] Jose Martni HOWARD MD Study Date: 08/31/2021 Referring [id number] JONES Physician: MRN/PID: [id number] PCP: Andrei Wiseman Accession/Order#: [id number] [facility] Location: [place] Date of : 1945 Fellow: Gender: F Nurse: Misti Lopez RN Admit Date: Mascara Molder: Taty Allen RDCS, RVT Height: 170.18 cm CC Report to: Weight: 112.95 kg Study Type: Echocardiogram BSA: 2.22 m2 Blood Pressure: 144 /88 mmHg Diagnosis/ICD: I42.9-Cardiomyopathy, unspecified; X18-Wqfajuczb (primary) hypertension; I48.0-Paroxysmal atrial fibrillation Indication: Family History of CAD, Obesity Procedure/CPT: Echo Complete w Full Doppler-[id number] Study Detail: The following Echo studies were [...] 0.5 m/s (0.6-0.9m/s) PV Max P.2 mmHg [id number] Jose Martin Jones MD Electronically signed on 08/31/2021 at 6:01:31 PM Final Normal [facility] Falls Screening (Age 18+)on 08-31-2021 Fall risk assessment a) No falls within the last year [facility] [employer] [address] [place] Work Phone: Office Visit (Cardiology)on [...] she has been getting her care in [facility] from the [place] cardiology group Recently, her construction skills teacher became ill and she has not had any continuity of care ever since. She had been plagued by paroxysmal atrial fibrillation and it appears that the attending construction skills teacher placed her on flecainide. This would lead [...] MG TABSTAKE (more content not included)... Normal [employer] Tobacco Screening.on 022 Adult depression screening assessment No [facility] Ku DO Work Phone: Fall risk assessment a) No falls within the last year [facility] 250 DO Work Phone: Tobacco use status CP b) No [facility] 250 DO Work Phone: Adult depression screening assessment No [facility] 250 DO Work Phone: Fall risk assessment a) No falls within the last year [facility] 250 DO Work Phone: Tobacco use status CPHS b) No [facility] DO Work Phone: PROTIMEon 12-04-2020 INR Coag (PPP) [Relative time] 0.98 {INR} Normal [facility] Comment on above: Performed By: #### P TT, PT #### [facility] [address] [address] [address] Soniya Qureshi INR GUIDELINES SEE BELOW Normal [facility] Comment on above: Result Comment: JAVED RED INR: 2.0 - 3.0 CONDITIONS NOT LISTED BELOW 2.5 - 3.5 FOR PROSTHETIC HEART VALVE REPLACEMENT 2.5 - 3.5 RECURRENT THROMBOSIS Performed By: #### P TT, PT #### [facility] [address] [address] [address] Soniya Qureshi PT Coag (PPP) [Time] 10.6 s Normal 9.0-11.6 [facility] Comment on above: Performed By: #### P TT, PT #### [facility] [address] [address] [address] Soniya Qureshi PTTon 12-04-2020 aPTT Coag (Bld) [Time] 25.4 s Normal 22.3-36.2 [facility] Comment on above: Performed By: #### P TT, PT #### [facility] [address] [address] [address] Soniya Qureshi XR KUB 1 VIEWon [...] MARGARET ROMAN Date: 2020-12-04 07:13 Normal [facility] Covid-19 PCR (CVDTBH)on 11-08 SARS-CoV-2 (COVID-19) RNA HÉCTOR+probe Ql (Unsp spec) Not detected Normal NOT DETECTED [facility] Comment on above: Result Comment: This test is not yet approved or cleared by the [place] FDA. When there are no FDA-approved or cleared tests available, and other criteria are met, FDA can make tests available under an emergency access mechanism called an Emergency Use Authorization (EUA). The EUA for this test is supported by the [place] of Health and Human Service's (HHS's) declaration [...] consistent with SARS-CoV-2. Performed By: #### C [facility] #### [facility] [address] [place] [address] Dr. Soniya Qureshi XR KUB 1 VIEWon [...] ANDREI MERCADO Date: 2020-11-13 07:52 Normal [facility] Covid-19 PCR ([facility])on SARS-CoV-2 (COVID-19) RNA HÉCTOR+probe Ql (Unsp spec) Not detected Normal NOT DETECTED [facility] Comment on above: Result Comment: This test is not yet approved or cleared by the [place] FDA. When there are no FDA-approved or cleared tests available, and other criteria are met, FDA can make tests available under an emergency access mechanism called an Emergency Use Authorization (EUA). The EUA for this test is supported by the [place] of Health and Human Service's (HHS's) declaration [...] SARS-CoV-2. Performed By: #### C VDTBH #### [facility] [address] [place] [address] Dr. Soniya Qureshi PROTIMEon 11-06-2020 INR Coag (PPP) [Relative time] 1.07 {INR} Normal [facility] Comment on above: Performed By: #### P T, PTT #### [facility] [address] [place] [address] Dr. Soniya Qureshi INR GUIDELINES SEE BELOW Normal [facility] Comment on above: Result Comment: JAVED RED INR: 2.0 - 3.0 CONDITIONS NOT LISTED BELOW 2.5 - 3.5 FOR PROSTHETIC HEART VALVE REPLACEMENT 2.5 - 3.5 RECURRENT THROMBOSIS Performed By: #### P T, PTT #### [facility] [address] [place] [address] Dr. Soniya Qureshi PT Coag (PPP) [Time] 11.5 s Normal 9.0-11.6 [facility] Comment on above: Performed By: #### P T, PTT #### [facility] [address] [place] [address] Dr. Soniya Qureshi PTTon 11-06-2020 aPTT Coag (Bld) [Time] 27.4 s Normal 22.3-36.2 [facility] Comment on above: Performed By: #### P T, PTT #### [facility] [address] [place] [address] Dr. Soniya Qureshi CNPPalak 11-04-2020 CNPN Telephone (Start[employer]) -- HERNANDO HOWARD ([id number]) 1945 F Date Time Provider Department 11/04/20 [...] Reason for Visit: Request Outside Medical Records [[id number]] Prescriptions as of 11/04/2020 - metoprolol tartrate, [...] Encounter Status:Closed by RAINA DIAZ on 11/04/20 [facility] CNOVSPon 10-07-2020 CNOVSP Visit (SP) Office ( [facility]) -- HERNANDO HOWARD ([id number]) 1945 F Date Time Provider Department 10/07/20 11:15 AM PHIL BROOKS During your visit today, we recorded the following information about you: Temperature Pulse Respiration Blood pressure 96.7 degrees 75/minute 16/minute 160/87 Weight Height 115.6 kg 1.689 m Phil Brooks MD 10/07/2020 10:56 PM Signed PATIENT NAME: Hernando Howard CLINIC NO.: [id number] ATTENDING PHYSICIAN: Phil Brooks MD DATE OF [...] General a (more content not included)... Normal [facility] XR KUB 1 VIEWon 09-15-2020 XR [...] by: MARGARET ROMAN Date: 2020-09-15 14:42 Normal [facility] Vital Signs Date Time Vital Sign Value Performing Clinician Facility 10-02-2024 13:28040 Body height 167.[address] 10-02-2024 13:[id number] Body mass index (BMI) [Ratio] 32.28 kg/m2 [address] 10-02-2024 13:28-040 Body weight 90.[address] 10-02-2024 13:28-040 Diastolic blood pressure 82 mm[Hg] [address] 10-02-2024 13:28040 Systolic blood pressure 136 mm[Hg] [address] 08-08-2024 13:070400 Body height 163.8 cm Jerome Quick MD Work Phone: [facility] 08-08-2024 13:07-0400 Body mass index (BMI) [Ratio] 33.63 kg/m2 Jerome Quick MD Work Phone: [facility] 08-08-2024 13:07-0400 Body weight 90.27 kg Jerome Quick MD Work Phone: [facility] 08-08-2024 13:07-0400 Diastolic blood pressure 80 mm[Hg] Jerome Quick MD Work Phone: [facility] 08-08-2024 13:07-0400 Heart rate 72 /min Jerome Quick MD Work Phone: [facility] 08-08-2024 13:07-0400 Respiratory rate 18 /min Jerome Quick MD Work Phone: [facility] 08-08-2024 13:07-0400 SaO2% (BldA) [Mass fraction] 98 % Jerome Quick MD Work Phone: [facility] 08-08-2024 13:07-0400 Systolic blood pressure 108 mm[Hg] Jerome Quick MD Work Phone: [facility] 08-01-2024 11:06-0400 Body height 167.6 cm [facility] 08-01-2024 11:06-0400 Body mass index (BMI) [Ratio] 32.35 kg/m2 [facility] 08-01-2024 11:06-0400 Body weight 90.9 kg [facility] 08-01-2024 11:06-0400 Diastolic blood pressure 86 mm[Hg] [facility] 08-01-2024 11:06-0400 Heart rate 75 /min [facility] 08-01-2024 11:06-0400 Systolic blood pressure 142 mm[Hg] Raymundo Santa [facility] 07-26-2024 15:47-0400 Body mass index (BMI) [Ratio] 32.6 kg/m2 Jerome Quick MD Work Phone: [facility] 07-26-2024 15:47-0400 Body temperature 97.9 [degF] Jerome Quick MD Work Phone: [facility] 07-26-2024 15:47-0400 Body weight 91.63 kg Jerome Quick MD Work Phone: [facility] 07-26-2024 15:47-0400 Diastolic blood pressure 60 mm[Hg] Jerome Quick MD Work Phone: [facility] 07-26-2024 15:47-0400 Heart rate 70 /min Jerome Quick MD Work Phone: [facility] 07-26-2024 15:47-0400 Respiratory rate 20 /min Jerome Quick MD Work Phone: [facility] 07-26-2024 15:47-0400 SaO2% (BldA) [Mass fraction] 95 % Jerome Quick MD Work Phone: [facility] 07-26-2024 15:47-0400 Systolic blood pressure 110 mm[Hg] Jerome Quick MD Work Phone: [facility] 07-25-2024 10:24-0400 Body height 167.6 cm Yvonne Haas MD Work Phone: [place] 07-25-2024 10:24-0400 Body mass index (BMI) [Ratio] 32.73 kg/m2 Yvonne Haas MD Work Phone: [place] 07-25-2024 10:24-0400 Body weight 91.99 kg Yvonne Haas MD Work Phone: [place] 07-25-2024 10:24-0400 Diastolic blood pressure 76 mm[Hg] Yvonne Haas MD Work Phone: [place] 07-25-2024 10:24-0400 Heart rate 76 /min Yvonne Haas MD Work Phone: [place] 07-25-2024 10:24-0400 Systolic blood pressure 122 mm[Hg] Yvonne Haas MD Work Phone: [place] 12-14-2023 12:21-0500 Body height 167.[address] 12-14-2023 12:21-0500 Body mass index (BMI) [Ratio] 33.73 kg/m2 [address] 12-14-2023 12:21-0500 Body weight 94.[address] 12-14-2023 12:21-0500 Diastolic blood pressure 84 mm[Hg] [address] 12-14-2023 12:21-0500 Systolic blood pressure 130 mm[Hg] [address] 12-13-2023 10:37-0500 Diastolic blood pressure 75 mm[Hg] Yvonne Haas MD Work Phone: [place] 12-13-2023 10:37-0500 Systolic blood pressure 130 mm[Hg] Yvonne Haas MD Work Phone: [place] 12-13-2023 09:55-0500 Body height 167.6 cm Yvonne Haas MD Work Phone: [place] 12-13-2023 09:55-0500 Body mass index (BMI) [Ratio] 33.73 kg/m2 Yvonne Haas MD Work Phone: [place] 12-13-2023 09:55-0500 Body weight 94.8 kg Yvonne Haas MD Work Phone: [place] 12-13-2023 09:55-0500 Heart rate 87 /min Yvonne Haas MD Work Phone: [place] 12-01-2023 16:49-0400 Diastolic blood pressure 64 mm[Hg] MD Andrei Wiseman Work Phone: [facility] 12-01-2023 16:49-0400 Heart rate 62 /min MD Andrei Wiseman Work Phone: [facility] 12-01-2023 16:49-0400 Respiratory rate 22 /min MD Andrei Wiseman Work Phone: [facility] 12-01-2023 16:49-0400 SaO2% (BldA) [Mass fraction] 95 % MD Andrei Wiseman Work Phone: [facility] 12-01-2023 16:49-0400 Systolic blood pressure 139 mm[Hg] MD Andrei Wiseman Work Phone: [facility] 12-01-2023 13:02-0400 Body height 167.64 cm MD Andrei Wiseman Work Phone: [facility] 12-01-2023 13:02-0400 Body temperature 97.9 [degF] MD Andrei Wiseman Work Phone: [facility] 12-01-2023 13:02-0400 Body weight 94 kg MD Andrei Wiseman Work Phone: [facility] 09-16-2023 10:18-0400 Blood Pressure Location Allyson SALEEM [facility] 09-16-2023 10:18-0400 Diastolic blood pressure 78 mm[Hg] Allyson SALEEM [facility] 09-16-2023 10:18-0400 Heart rate 80 /min Allyson SALEEM [facility] 09-16-2023 10:18-0400 Respiratory rate 16 /min Allyson SALEEM [facility] 09-16-2023 10:18-0400 Systolic blood pressure 136 mm[Hg] Allyson SALEEM [facility] 08-04-2023 09:31-0400 Body height 167.6 cm Andrei Wiseman MD Work Phone: [facility] 08-04-2023 09:31-0400 Body mass index (BMI) [Ratio] 33.25 kg/m2 Andrei Wiseman MD Work Phone: [facility] 08-04-2023 09:31-0400 Body temperature 97.59 [degF] Andrei Wiseman MD Work Phone: [facility] 08-04-2023 09:31-0400 Body weight 93.44 kg Andrei Wiseman MD Work Phone: [facility] 08-04-2023 09:31-0400 Diastolic blood pressure 80 mm[Hg] Andrei Wiseman MD Work Phone: [facility] 08-04-2023 09:31-0400 Heart rate 68 /min Andrei Wiseman MD Work Phone: [facility] 08-04-2023 09:31-0400 Respiratory rate 16 /min Andrei Wiseman MD Work Phone: [facility] 08-04-2023 09:31-0400 Systolic blood pressure 128 mm[Hg] Andrei Wiseman MD Work Phone: [facility] 03-01-2023 12:13-0500 Body height 167.6 cm Delilah Turner [employer] Work Phone: [place] 03-01-2023 12:13-0500 Body mass index (BMI) [Ratio] 33.73 kg/m2 Delilah Turner [employer] MANAGER Work Phone: [place] 03-01-2023 12:13-0500 Body weight 94.8 kg Delilah Turner [employer] MANAGER Work Phone: [place] 03-01-2023 12:13-0500 Diastolic blood pressure 70 mm[Hg] Delilah Turner [employer] MANAGER Work Phone: [place] 03-01-2023 12:13-0500 Heart rate 64 /min Delilah Turner [employer] MANAGER Work Phone: [place] 03-01-2023 12:13-0500 Systolic blood pressure 108 mm[Hg] Delilah Turner [employer] MANAGER Work Phone: [place] 02-21-2023 10:19-0500 Body height 167.6 cm Delilah Turner [employer] MANAGER Work Phone: [place] 02-21-2023 10:19-0500 Body mass index (BMI) [Ratio] 33.89 kg/m2 Delilah Turner [employer] MANAGER Work Phone: [place] 02-21-2023 10:19-0500 Body weight 95.25 kg Delilah Turner [employer] MANAGER Work Phone: [place] 02-21-2023 10:19-0500 Diastolic blood pressure 84 mm[Hg] Delilah Turner [employer]IST MANAGER Work Phone: [place] 02-21-2023 10:19-0500 Heart rate 31 /min Delilah Turner [employer]IST MANAGER Work Phone: [place] 02-21-2023 10:19-0500 Systolic blood pressure 128 mm[Hg] Delilah Turner [employer] MANAGER Work Phone: [place] 02-01-2023 09:40-0500 Body height 167.6 cm Andrei Wiseman MD Work Phone: [employer] [facility] 02-01-2023 09:40-0500 Body mass index (BMI) [Ratio] 34.3 kg/m2 Andrei Wiseman MD Work Phone: [employer] [facility] 02-01-2023 09:40-0500 Body weight 96.39 kg Andrei Wiseman MD Work Phone: [facility] 02-01-2023 09:40-0500 Diastolic blood pressure 84 mm[Hg] Andrei Wiseman MD Work Phone: [facility] 02-01-2023 09:40-0500 Heart rate 60 /min Andrei Wiseman MD Work Phone: [facility] 02-01-2023 09:40-0500 Respiratory rate 16 /min Andrei Wiseman MD Work Phone: [facility] 02-01-2023 09:40-0500 Systolic blood pressure 122 mm[Hg] Andrei Wiseman MD Work Phone: [facility] 01-21-2023 10:43-0500 Body height 167.[address] 01-21-2023 10:43-0500 Body mass index (BMI) [Ratio] 34.54 kg/m2 [address] 01-21-2023 10:43-0500 Body weight 97.[address] 01-21-2023 10:43-0500 Diastolic blood pressure 84 mm[Hg] [address] 01-21-2023 10:43-0500 Systolic blood pressure 140 mm[Hg] [address] 01-17-2023 09:27-0500 Body height 167.6 cm Delilah Turner [employer] MANAGER Work Phone: [place] 01-17-2023 09:27-0500 Body mass index (BMI) [Ratio] 34.54 kg/m2 Delilah Turner [employer] MANAGER Work Phone: [place] 01-17-2023 09:27-0500 Body weight 97.07 kg Delilah Turner [employer] MANAGER Work Phone: [place] 01-17-2023 09:27-0500 Diastolic blood pressure 80 mm[Hg] Delilah Turner [employer] MANAGER Work Phone: [place] 01-17-2023 09:27-0500 Heart rate 46 /min Delilah Turner [employer] MANAGER Work Phone: [place] 01-17-2023 09:27-0500 Systolic blood pressure 142 mm[Hg] Delilah Turner [employer] MANAGER Work Phone: [place] 09-13-2022 10:27-0400 Blood Pressure Location Allyson SALEEM [facility] 09-13-2022 10:27-0400 Diastolic blood pressure 80 mm[Hg] Allyson SALEEM [facility] 09-13-2022 10:27-0400 Heart rate 78 /min Allyson SALEEM [facility] 09-13-2022 10:27-0400 Respiratory rate 16 /min Allyson SALEEM [facility] 09-13-2022 10:27-0400 Systolic blood pressure 130 mm[Hg] Allyson SALEEM [facility] 07-19-2022 09:10-0400 Body height 167.64 cm Andrei Wiseman Work Phone: [facility] DO Work Phone: 07-19-2022 09:10-0400 Body mass index (BMI) [Ratio] 34.86 kg/m2 Andrei Formanrance Work Phone: [facility] DO Work Phone: 07-19-2022 09:10-0400 Body surface area Derived from formula 2.07 m2 Andrei Wiseman Work Phone: [facility] DO Work Phone: 07-19-2022 09:10-0400 Body weight 97.98 kg Andrei Wiseman Work Phone: [facility] DO Work Phone: 07-19-2022 09:10-0400 Diastolic blood pressure 70 mm[Hg] Andrei T Defrance Work Phone: [facility] DO Work Phone: 07-19-2022 09:10-0400 Heart rate 45 /min Andrei T Defrance Work Phone: [facility] DO Work Phone: 07-19-2022 09:10-0400 Systolic blood pressure 128 mm[Hg] Andrei T Defrance Work Phone: [facility] DO Work Phone: 01-21-2022 14:17-0500 Body height 167.64 cm Andrei T Defrance Work Phone: [facility] DO Work Phone: 01-21-2022 14:17-0500 Body mass index (BMI) [Ratio] 38.41 kg/m2 Andrei T Defrance Work Phone: [facility] DO Work Phone: 01-21-2022 14:17-0500 Body surface area Derived from formula 2.15 m2 Andrei T Defrance Work Phone: [facility] DO Work Phone: 01-21-2022 14:17-0500 Body weight 107.96 kg Andrei T Defrance Work Phone: [facility] DO Work Phone: 01-21-2022 14:17-0500 Diastolic blood pressure 72 mm[Hg] Andrei T Defrance Work Phone: [facility] DO Work Phone: 01-21-2022 14:17-0500 Heart rate 47 /min Andrei T Defrance Work Phone: [facility] DO Work Phone: 01-21-2022 14:17-0500 Systolic blood pressure 132 mm[Hg] Andrei Walker Defrance Work Phone: [facility] DO Work Phone: 11-03-2021 10:36-0400 Heart rate 48 /min Andrei Walker Defrance Work Phone: [facility] DO Work Phone: 11-03-2021 10:32-0400 Body height 167.64 cm Andrei Walker Defrance Work Phone: [facility] DO Work Phone: 11-03-2021 10:32-0400 Body mass index (BMI) [Ratio] 39.38 kg/m2 Andrei Walker Defrance Work Phone: [facility] DO Work Phone: 11-03-2021 10:32-0400 Body surface area Derived from formula 2.18 m2 Andrei Walker Defrance Work Phone: [facility] DO Work Phone: 11-03-2021 10:32-0400 Body weight 110.68 kg Andrei Walker Defrance Work Phone: [facility] DO Work Phone: 11-03-2021 10:32-0400 Diastolic blood pressure 86 mm[Hg] Andrei Walker Defrance Work Phone: [facility] DO Work Phone: 11-03-2021 10:32-0400 Systolic blood pressure 138 mm[Hg] Andrei Walker Defrance Work Phone: [facility] DO Work Phone: 09-21-2021 12:00-0400 48 1 Andrei Walker Defrance Work Phone: [facility] [place] Work Phone: Comment on above: [id number] 09-14-2021 15:01-0400 Body height 167.64 cm Andrei Walker Defrance Work Phone: [facility] DO Work Phone: 09-14-2021 15:01-0400 Body mass index (BMI) [Ratio] 39.87 kg/m2 Andrei Walker Defrance Work Phone: [facility] DO Work Phone: 09-14-2021 15:01-0400 Body surface area Derived from formula 2.19 m2 Andrei Walker Defrance Work Phone: [facility] DO Work Phone: 09-14-2021 15:01-0400 Body weight 112.04 kg Andrei Walker Defrance Work Phone: [facility] DO Work Phone: 09-14-2021 15:01-0400 Diastolic blood pressure 86 mm[Hg] Andrei Walker Defrance Work Phone: [facility] DO Work Phone: 09-14-2021 15:01-0400 Heart rate 77 /min Andrei Walker Defrance Work Phone: [facility] DO Work Phone: 09-14-2021 15:01-0400 Systolic blood pressure 128 mm[Hg] Andrei Walker Defrance Work Phone: [facility] DO Work Phone: 09-07-2021 11:37-0400 Body height 167.64 cm Andrei Walker Defrance Work Phone: [facility] DO Work Phone: 09-07-2021 11:37-0400 Body mass index (BMI) [Ratio] 39.54 kg/m2 Andrei Walker Defrance Work Phone: [facility] DO Work Phone: 09-07-2021 11:37-0400 Body surface area Derived from formula 2.18 m2 Andrei Walker Defrance Work Phone: [facility] DO Work Phone: 09-07-2021 11:37-0400 Body weight 111.13 kg Andrei Walker Defrance Work Phone: [facility] DO Work Phone: 09-07-2021 11:37-0400 Diastolic blood pressure 74 mm[Hg] Andrei Brooklynn Defrance Work Phone: [facility] DO Work Phone: 09-07-2021 11:37-0400 Heart rate 70 /min Andrei Walker Defrance Work Phone: [facility] DO Work Phone: 09-07-2021 11:37-0400 Systolic blood pressure 122 mm[Hg] Andrei Walker Defrance Work Phone: [facility] DO Work Phone: 08-31-2021 10:45-0400 35 1 Andrei Walker Defrance Work Phone: [facility] [place] Work Phone: Comment on above: [id number] 07-22-2021 17:22-0400 Body height 170.18 cm Andrei Walker Defrance Work Phone: [facility] DO Work Phone: 07-22-2021 17:22-0400 Body mass index (BMI) [Ratio] 39 kg/m2 Andrei Walker Defrance Work Phone: [facility] DO Work Phone: 07-22-2021 17:22-0400 Body surface area Derived from formula 2.22 m2 Andrei Walker Defrance Work Phone: [facility] DO Work Phone: 07-22-2021 17:22-0400 Body weight 112.95 kg Andrei Walker Defrance Work Phone: [facility] DO Work Phone: 07-22-2021 17:22-0400 Diastolic blood pressure 88 mm[Hg] Andrei Walker Defrance Work Phone: [facility] DO Work Phone: 07-22-2021 17:22-0400 Heart rate 74 /min Andrei Walker Defrance Work Phone: [facility] DO Work Phone: 07-22-2021 17:22-0400 Systolic blood pressure 138 mm[Hg] Andrei Walker Defrance Work Phone: [facility] DO Work Phone: 07-22-2021 12:50-0400 Body height 170.18 cm Andrei Walker Defrance Work Phone: [facility] DO Work Phone: 07-22-2021 12:50-0400 Body mass index (BMI) [Ratio] 39 kg/m2 Andrei Walker Defrance Work Phone: [facility] DO Work Phone: 07-22-2021 12:50-0400 Body surface area Derived from formula 2.22 m2 Andrei Walker Defrance Work Phone: [facility] DO Work Phone: 07-22-2021 12:50-0400 Body weight 112.95 kg Andrei Walker Defrance Work Phone: [facility] DO Work Phone: 07-22-2021 12:50-0400 Diastolic blood pressure 90 mm[Hg] Andrei Walker Defrance Work Phone: [facility] DO Work Phone: 07-22-2021 12:50-0400 Heart rate 74 /min Andrei Walker Defrance Work Phone: [facility] DO Work Phone: 07-22-2021 12:50-0400 Systolic blood pressure 142 mm[Hg] Andrei Walker Defrance Work Phone: [facility] DO Work Phone: 07-22-2021 12:49-0400 Body height 170.18 cm Andrei Walker Defrance Work Phone: [facility] DO Work Phone: 07-22-2021 12:49-0400 Body mass index (BMI) [Ratio] 39 kg/m2 Andrei Walker Defrance Work Phone: [facility] DO Work Phone: 07-22-2021 12:49-0400 Body surface area Derived from formula 2.22 m2 Andrei Walker Defrance Work Phone: [facility] DO Work Phone: 07-22-2021 12:49-0400 Body weight 112.95 kg Andrei Walker Defrance Work Phone: [facility] DO Work Phone: 07-22-2021 12:49-0400 Diastolic blood pressure 98 mm[Hg] Andrei Walker Defrance Work Phone: [facility] DO Work Phone: 07-22-2021 12:49-0400 Heart rate 74 /min Andrei Walker Defrance Work Phone: [facility] DO Work Phone: 07-22-2021 12:49-0400 Systolic blood pressure 144 mm[Hg] Andrei Walker Defrance Work Phone: [facility] DO Work Phone: Encounters Encounter Date Encounter Type Care Provider Facility Start: 11-07-2024 End: 11-07-2024 [facility] Medication Management Comment on above: Paroxysmal A-fib (CM S-HCC) (Primary Dx) Start: 11-07-2024 End: 11-07-2024 ambulatory Allyson SALEEM Facility:[id number] Start: 11-02-2024 End: 11-02-2024 Refill Olinda Elena [facility] Work Phone: [facility] Medication Management Comment on above: Atrial fibrillation, unspecified type (CMS-HCC) Start: 10-23-2024 ambulatory Allyson Aguilari ty:MELBA Steen Start: 10-10-2024 End: 10-10-2024 ambulatory [facility] Start: 10-10-2024 End: 10-10-2024 Follow-up encounter [facility] Medication Management Comment on above: Paroxysmal A-fib (CM S-HCC) (Primary Dx) Start: 10-02-2024 End: 10-02-2024 Subsequent hospital visit by physician Adenike Steen Echo/Vasc Room 2 [facility] Comment on above: Cardiomyopathy, unsp ecified type (Multi); Chronic diastolic congestive heart failure Start: 10-02-2024 End: 10-02-2024 ambulatory [facility] Start: 09-17-2024 End: 09-17-2024 ambulatory Allyson SALEEM Facility:[facility] Start: 09-17-2024 End: 09-17-2024 ambulatory Allyson SALEEM Facility:[facility] [place] Start: 09-17-2024 End: 09-17-2024 Patient encounter procedure Allyson Moni HARPER [facility] Start: 09-14-2024 End: 09-14-2024 ambulatory ALLYSON SALEEM [facility] Start: 09-13-2024 ambulatory [facility] Start: 09-12-2024 End: 09-12-2024 Follow-up encounter [facility] 1 [facility] Medication Management Comment on above: Paroxysmal A-fib (CM S-HCC) (Primary Dx) Start: 09-12-2024 End: 09-12-2024 ambulatory [facility] MEDICATION [facility]NAGEMENT [facility] Start: 08-16-2024 End: 08-17-2024 Refill Andrei Wiseman MD Work Phone: [facility] Comment on above: PUD (peptic ulcer di sease) Start: 08-15-2024 End: 08-15-2024 Follow-up encounter [facility] 1 [facility] Medication Management Comment on above: Paroxysmal A-fib (CM S-HCC) (Primary Dx) Start: 08-15-2024 End: 08-15-2024 ambulatory [facility] MEDICATION [facility]NAGEMENT [facility] Start: 08-08-2024 End: 08-08-2024 ambulatory [facility] Start: 08-08-2024 Encounter for genera l adult medical examination without abnormal findings [facility] Start: 08-08-2024 End: 08-08-2024 Patient encounter procedure Jerome Quick MD Work Phone: [facility] Comment on above: Encounter for Medica re annual wellness exam (Primary Dx); Paroxysmal A-fib (CMS-HCC); Single subsegmental pulmonary embolism without acute cor pulmonale (CMS-HCC); Chronic diastolic congestive heart failure (CMS-HCC); Essential hypertension; Acoustic neuroma (CMS-HCC); Yeast infection; PUD (peptic ulcer disease); Hypothyroidism (acquired) Start: 08-03-2024 End: 08-03-2024 Telephone encounter Ashley Keene CMA [facility] Comment on above: Vaginitis Start: 08-01-2024 End: 08-01-2024 Professional / ancillary services management Raymundo Santa MA [facility] [facility] Comment on above: 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 use; Paroxysmal atrial fibrillation (Multi) Start: 08-01-2024 End: 08-01-2024 ambulatory [facility] Start: 07-26-2024 End: 07-26-2024 Office outpatient visit 25 minutes Jerome Quick MD Work Phone: [facility] Comment on above: Rhinopharyngitis (Pr imary Dx); Paroxysmal A-fib ([facility]-HCC); Single subsegmental pulmonary embolism without acute cor pulmonale ([facility]-HCC) Start: 07-26-2024 End: 07-26-2024 ambulatory [facility] Start: 07-26-2024 End: 07-26-2024 Documentation procedure Heriberto Parra [facility] Work Phone: [facility] - Pharmacy Medication Management Start: 07-25-2024 End: 07-25-2024 Office outpatient visit 25 minutes Yvonne Haas MD Work Phone: [facility] Comment on above: Chronic systolic hea rt failure (Primary Dx); Essential hypertension, benign; Cardiomyopathy, unspecified type (Multi); 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 use; Paroxysmal atrial fibrillation (Multi); Chronic diastolic congestive heart failure; 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; PVC (premature ventricular contraction); BMI 32.0-32.9,adult; Never smoked cigarettes; Obesity, Class I, BMI 30-34.9 Start: 07-25-2024 End: 07-25-2024 ambulatory [facility] Start: 07-18-2024 End: 07-18-2024 Follow-up encounter [facility] 1 [facility] - Pharmacy Medication Management Comment on above: Paroxysmal A-fib (CM S-HCC) (Primary Dx) Start: 07-18-2024 End: 07-18-2024 ambulatory [facility] Start: 06-29-2024 End: 06-29-2024 ambulatory [facility] Start: 06-19-2024 End: 06-19-2024 Follow-up encounter [facility] 1 [facility] - Pharmacy Medication Management Comment on above: Paroxysmal A-fib (CM S-HCC) (Primary Dx); Single subsegmental pulmonary embolism without acute cor pulmonale (CMS-HCC) Start: 06-19-2024 End: 06-19-2024 ambulatory [facility] Start: 06-07-2024 End: 06-07-2024 Follow-up encounter [facility] 1 [facility] - Pharmacy Medication Management Comment on above: Atrial fibrillation, unspecified type (CMS-HCC) (Primary Dx) Start: 06-07-2024 End: 06-07-2024 ambulatory [facility] Start: 05-18-2024 End: 05-18-[address] Start: 05-18-2024 End: 05-18-2024 Follow-up encounter [facility] 2 [facility] - Pharmacy Medication Management Comment on above: Atrial fibrillation, unspecified type (CMS-HCC) (Primary Dx) Start: 05-16-2024 End: 05-16-2024 Evaluation and management of inpatient MATTHEW [facility] Start: 05-09-2024 End: 05-09-2024 Follow-up encounter [facility] 1 [facility] - Pharmacy Medication Management Comment on above: Atrial fibrillation, unspecified type (CMS-HCC) (Primary Dx) Start: 05-09-2024 End: 05-09-2024 ambulatory [facility] Start: 04-30-2024 End: 04-30-2024 ambulatory [facility] Start: 04-30-2024 End: 04-30-2024 [facility] - Pharmacy Medication Management Comment on above: Atrial fibrillation, unspecified type (CMS-HCC) (Primary Dx) Start: 04-16-2024 End: 04-16-2024 [facility] Start: 04-16-2024 End: 04-16-2024 [facility] - Pharmacy Medication Management Comment on above: Paroxysmal A-fib (CM S-HCC) (Primary Dx) Start: 04-09-2024 End: 04-09-2024 Emergency department patient visit ANDREI WISEMAN [facility] Start: 03-26-2024 End: 03-26-2024 ambulatory [facility]ICATION [facility] Start: 03-26-2024 End: 03-26-2024 Follow-up encounter [facility] 1 [facility] - Pharmacy Medication Management Comment on above: Paroxysmal A-fib (CM S-HCC) (Primary Dx) Start: 03-05-2024 End: 03-05-2024 ambulatory [facility] Start: 03-05-2024 End: 03-05-2024 [facility] Medication Therapy Management Comment on above: Paroxysmal A-fib (CM S-HCC) (Primary Dx) Start: 02-20-2024 End: 02-20-2024 ambulatory YVONNE HAAS [facility] Start: 02-20-2024 End: 02-20-2024 Follow-up encounter [facility] 1 [facility] Medication Therapy Management Comment on above: Paroxysmal A-fib (CM S-HCC) (Primary Dx) Start: 02-02-2024 End: 02-02-2024 Follow-up encounter [facility] 1 [facility] Medication Therapy Management Comment on above: Paroxysmal A-fib (CM S-HCC) (Primary Dx) Start: 02-02-2024 End: 02-02-2024 ambulatory [facility]ICATION [facility] Start: 01-27-2024 End: 01-27-2024 ambulatory Andrei Wiseman Facility:[facility] Start: 01-25-2024 End: 01-25-2024 ambulatory ANDREI WISEMAN [facility] Start: 01-24-2024 End: 01-24-2024 ambulatory [facility] Start: 01-13-2024 End: 01-13-2024 ambulatory [facility] Start: 01-13-2024 End: 01-13-2024 Follow-up encounter [facility] 2 [facility] Medication Therapy Management Comment on above: Atrial fibrillation, unspecified type (CMS-HCC) (Primary Dx) Start: 01-04-2024 End: 01-04-2024 Refill Andrei Wiseman MD Work Phone: [facility] Start: 12-30-2023 End: 12-30-2023 Follow-up encounter [facility] 1 [facility] Medication Therapy Management Comment on above: Paroxysmal A-fib (CM S-HCC) (Primary Dx) Start: 12-30-2023 End: 12-30-[address] [facility] Start: 12-23-2023 End: 12-23-2023 Follow-up encounter [facility] 1 [facility] Medication Therapy Management Comment on above: Paroxysmal A-fib (CM S-HCC) (Primary Dx) Start: 12-23-2023 End: 12-23-2023 ambulatory [facility] Start: 12-19-2023 End: 12-19-2023 ambulatory [facility] Start: 12-16-2023 End: 12-16-2023 Follow-up encounter [facility] 1 [facility] Medication Therapy Management Comment on above: Paroxysmal A-fib (CM S-HCC) (Primary Dx) Start: 12-16-2023 End: 12-16-2023 ambulatory [facility] Start: 12-14-2023 End: 12-14-2023 Subsequent hospital visit by physician Adenike Steen Echo/Vasc Room 2 [facility] Comment on above: Dilated cardiomyopat hy (Multi) Start: 12-14-2023 End: 12-14-2023 ambulatory [facility] Start: 12-13-2023 End: 12-13-2023 Office outpatient visit 25 minutes Yvonne Haas MD Work Phone: [facility] Comment on above: Paroxysmal atrial fi brillation (Multi) (Primary Dx); PVC (premature ventricular contraction); Mild CAD; Essential hypertension, benign; Dilated cardiomyopathy (Multi); Sick sinus syndrome (Multi); senior care current use of anticoagulant therapy; 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 use; Never smoked cigarettes; BMI 33.0-33.9,adult; Obesity, Class I, BMI 30-34.9 Start: 12-13-2023 End: 12-13-2023 [facility] Ambulatory Start: 12-09-2023 End: 12-09-2023 ambulatory [facility] Start: 12-09-2023 End: 12-09-2023 Follow-up encounter [facility] Mandy [facility] 2 [facility] Medication Therapy Management Comment on above: Atrial fibrillation, unspecified type (CMS-HCC) (Primary Dx) Start: 12-01-2023 End: 12-01-2023 Emergency department patient visit MD Andrei Wiseman Work Phone: [facility] Work Phone: Start: 11-30-2023 End: 11-30-2023 ambulatory [facility] Start: 11-30-2023 End: 11-30-2023 Follow-up encounter [facility] 2 [facility] Medication Therapy Management Comment on above: Atrial fibrillation, unspecified type (CMS-HCC) (Primary Dx) Start: 11-18-2023 End: 11-18-2023 Follow-up encounter [facility] 2 [facility] Medication Therapy Management Comment on above: Atrial fibrillation, unspecified type (CMS-HCC) (Primary Dx) Start: 11-18-2023 End: 11-18-2023 ambulatory [facility] Start: 11-11-2023 End: 11-11-2023 Follow-up encounter [facility] 2 [facility] Medication Therapy Management Comment on above: Atrial fibrillation, unspecified type (CMS-HCC) (Primary Dx) Start: 11-08-2023 End: 11-08-2023 Follow-up encounter [facility] 1 [facility] Medication Therapy Management Comment on above: Paroxysmal A-fib (CM S-HCC) (Primary Dx) Start: 11-04-2023 End: 11-04-2023 Follow-up encounter [facility] 2 [facility] Medication Therapy Management Comment on above: Atrial fibrillation, unspecified type (CMS-HCC) (Primary Dx) Start: 10-31-2023 End: 10-31-2023 Follow-up encounter [facility] 1 [facility] Medication Therapy Management Comment on above: Atrial fibrillation, unspecified type (CMS-HCC) (Primary Dx) Start: 10-28-2023 End: 10-28-2023 Anticoagulant drug monitoring [facility] 2 [facility] Medication Therapy Management Comment on above: Atrial fibrillation, unspecified type (CMS-HCC) (Primary Dx) Start: 10-24-2023 End: 10-25-2023 Anticoagulant drug monitoring Alisa Hamilton [facility] Work Phone: [facility] Medication Therapy Management Comment on above: Atrial fibrillation, unspecified type (CMS-HCC) (Primary Dx) Start: 09-16-2023 End: 09-16-2023 Patient encounter procedure Allyson SALEEM [facility] Start: 08-04-2023 End: 08-04-2023 Patient encounter procedure Andrei Wiseman MD Work Phone: [facility] Comment on above: Routine general medi edwin examination at a health care facility (Primary Dx); Essential hypertension; Paroxysmal A-fib (CMS-HCC); Chronic diastolic congestive heart failure (CMS-HCC); H/O gastric bypass; Encounter for screening mammogram for malignant neoplasm of breast; Acoustic neuroma (CMS-HCC); Single subsegmental pulmonary embolism without acute cor pulmonale (CMS-HCC) Start: 08-04-2023 End: 08-04-2023 Patient encounter status Andrei Wiseman MD Work Phone: [facility] Work Phone: Start: 05-11-2023 Refill Andrei martell MD Work Phone: [facility] Start: 03-25-2023 Non-patient / Non-visit MD Lui Wiseman Work Phone: [facility] Work Phone: Start: 03-25-2023 End: 03-25-2023 Patient encounter procedure MD Adnrei Wiseman Work Phone: [facility] Work Phone: Start: 03-25-2023 End: 03-25-2023 ambulatory MD Andrei Wiseman Work Phone: [facility] Work Phone: Start: 03-14-2023 End: 03-14-2023 Subsequent hospital visit by physician Adenike Mera Admin Room 1 [facility] Start: 03-01-2023 End: 03-01-2023 Office outpatient visit 25 minutes Delilah Turner APRN-PERSONNEL GENERALIST MANAGER Work Phone: [facility] Comment on above: Other cardiomyopathy (CMS/HCC) (Primary Dx); Sick sinus syndrome (CMS/HCC); Paroxysmal atrial fibrillation (CMS/HCC); 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 use; senior care current 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 of anticoagulant therapy; Mild CAD; Essential hypertension, benign; BMI 34.0-34.9,adult; Abnormal electrocardiogram (ECG) (EKG) Start: 02-21-2023 End: 02-21-2023 Patient encounter procedure MD Andrei Wiseman Work Phone: [facility] [place] Work Phone: Start: 02-21-2023 End: 02-21-2023 ambulatory MD Andrei Wiseman Work Phone: [facility] Work Phone: Start: 02-21-2023 End: 02-21-2023 Office outpatient visit 25 minutes Delilah Turner CLOTH SHADER-PERSONNEL GENERALIST MANAGER Work Phone: [facility] Comment on above: Cardiomyopathy, unsp ecified type (CMS/HCC) (Primary Dx); Paroxysmal atrial fibrillation (CMS/HCC); 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 use; Mild CAD; Essential hypertension, benign; 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; BMI 34.0-34.9,adult; [...] by physician Adenike Steen Echo/Vasc Room 2 [facility] Comment on above: Cardiomyopathy, unsp ecified type (CMS/HCC); Abnormal electrocardiogram (ECG) (EKG) Start: 01-17-2023 End: 01-17-2023 Office outpatient visit 25 minutes Delilah Turner CLOTH SHADER-PERSONNEL GENERALIST MANAGER Work Phone: [facility] Comment on above: Paroxysmal atrial fi brillation (CMS/HCC) (Primary Dx); 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 use; senior care current use of anticoagulant therapy; Cardiomyopathy, unspecified type (CMS/HCC); Mild CAD; Essential hypertension, benign; BMI 34.0-34.9,adult; Abnormal electrocardiogram (ECG) (EKG) Start: 09-22-2022 End: 09-22-2022 Lab Drop off Allyson SALEEM [facility] Start: 09-22-2022 End: 09-22-2022 Patient encounter procedure Allyson R SALEEM [facility] Start: 09-13-2022 End: 09-13-2022 Patient encounter procedure Allyson R HARPER [facility] Start: 08-05-2022 Chart Update Andrei martell Work Phone: [facility] 250 DO Work Phone: Start: 08-05-2022 End: 08-05-2022 ambulatory MD Andrei Wiseman Work Phone: [facility] Work Phone: Start: 08-05-2022 End: 08-05-2022 Patient encounter procedure MD Andrei Wiseman Work Phone: [facility] Work Phone: Start: 05-01-2022 Chart Update Andrei martell Work Phone: [facility] 250 DO Work Phone: Start: 04-28-2022 Chart Update Andrei martell Work Phone: [facility] 250 DO Work Phone: Start: 04-27-2022 End: 04-27-2022 ambulatory MD Andrei Wiseman Work Phone: [facility] Work Phone: Start: 04-27-2022 End: 04-27-2022 Patient encounter procedure MD Andrei Wiseman Work Phone: [facility] Work Phone: Start: 04-08-2022 Patient encounter procedure Da vid T Defrance Work Phone: [facility] 600 DO Work Phone: Start: 01-21-2022 FUV, Provider: Jose Martin Jones, Status: Pen, Time: 2:10 PM Andrei T [place] Work Phone: [facility] 250 DO Work Phone: Start: 01-21-2022 Office outpatient vi sit 25 minutes Andrei T Def[place] Work Phone: [facility] 250 DO Work Phone: Start: 01-21-2022 ambulatory Jose Martin Jones II Facility: Start: 01-21-2022 End: 01-21-2022 ambulatory MD Andrei Wiseman Work Phone: [facility] Work Phone: Start: 01-21-2022 End: 01-21-2022 Patient encounter procedure MD Andrei Wiseman Work Phone: [facility] Start: 01-12-2022 Patient encounter procedure Da vid T Defrance Work Phone: [facility] 250 DO Work Phone: Start: 11-13-2021 ambulatory Jose Martin Jones II Facility: Start: 11-10-2021 ambulatory KM Sotelo y: Start: 11-03-2021 Office outpatient vi sit 15 minutes Andrei T Def[place] Work Phone: [facility] 250 DO Work Phone: Start: 11-03-2021 Patient encounter procedure Da vid T Def[place] Work Phone: [facility] 250 DO Work Phone: Start: 11-03-2021 ambulatory KM Turner Facilit y: Start: 09-23-2021 Chart Update Andrei Peguero ce Work Phone: [facility] 250 DO Work Phone: Start: 09-22-[address] Andrei Bowser as [place] Facility:[id number] Start: 09-21-2021 Patient encounter procedure Da vid T Defrance Work Phone: [facility] [facility] [place] Work Phone: Start: 09-21-2021 ambulatory Ms. Delilah Turner Facilit y:44 Start: 09-14-2021 Patient encounter procedure Da vid T Def[place] Work Phone: [facility] 250 DO Work Phone: Start: 09-14-2021 ambulatory Andrei Formanrance Facility: Start: 09-07-2021 Office outpatient vi sit 25 minutes Andrei Walker [place] Work Phone: [facility] 250 DO Work Phone: Start: 09-07-2021 ambulatory Jose Martin Jones II Facility: Start: 08-31-2021 Patient encounter procedure Da vid T [place] Work Phone: [facility] [facility] [place] Work Phone: Start: 08-31-[address] Andrei Bowser as [place] Facility:[id number] Start: 07-22-2021 Office consultation new/estab patient 80 min Andrei Walker [place] Work Phone: [facility] 250 DO Work Phone: Start: 07-22-2021 Office outpatient ne w 60 minutes Andrei Walker [place] Work Phone: [facility] 250 DO Work Phone: Start: 07-22-2021 ambulatory Andrei Bangura [place] Facility:[id number] Start: 12-05-2020 Encounter for prepro cedural laboratory examination DR ALLYSON SALEEM [facility] Start: 12-04-2020 End: 12-04-[address] ALLYSON SALEEM Facility:[facility] Start: 12-01-2020 End: 12-02-[address] ALLYSON SALEEM Facility:[facility] Start: 12-01-2020 End: 12-02-2020 Encounter for preprocedural laboratory examination DR ALLYSON SALEEM Facility:[facility] Start: 11-13-2020 End: 11-13-[address] ANDREI WISEMAN Facility:[facility] Start: 11-11-2020 Preoperative state Andrei brooks MD [facility] Start: 11-10-2020 End: 11-11-[address] ANDREI WISEMAN Facility:[facility] Start: 11-06-2020 End: 11-07-[address] ANDREI WISEMAN Facility:[facility] Start: 09-15-2020 End: 09-16-[address] ANDREI WISEMAN Facility:[facility]1 Procedures Date Procedure Procedure Detail Performing Clinician Start: 11-07-2024 Prothrombin time [facility] Work Phone: Start: 10-10-2024 Prothrombin time [facility] [...] rx cont ecg trcg only Delilah Turner CLOTH SHADER-[employer] Work Phone: Start: 03-01-2023 Ecg routine ecg w/le ast 12 lds w/i&r Delilah Turner CLOTH SHADER-PERSONNEL GENERALIST MANAGER Work Phone: Start: 02-21-2023 Ecg routine ecg w/le ast 12 lds w/i&r Delilah Turner CLOTH SHADER-PERSONNEL GENERALIST MANAGER Work Phone: Start: 02-01-2023 Adult depression scr eening assessment Andrei Wiseman MD Work Phone: Start: 01-21-2023 Echo tthrc r-t 2d w/ wom-mode compl spec&colr d Delilah Turner CLOTH SHADER-PERSONNEL GENERALIST MANAGER Work Phone: Start: 01-17-2023 Ecg routine ecg w/le ast 12 lds w/i&r Delilah K Turner CLOTH SHADER-PERSONNEL GENERALIST MANAGER Work Phone: Start: 08-05-2022 Plain chest X-ray MD Varghese Defrance Work Phone: Start: 04-27-2022 Plain chest X-ray MD Varghese Defze Work Phone: Start: 01-21-2022 Plain chest X-ray MD Varghese Defrance Work Phone: Start: 08-31-2021 Echocardiography Andrei Wiseman Work Phone: Start: 12-04-2020 Extracorporeal shock wave lithotripsy of calculus of kidney Allyson SALEEM Start: 11-13-2020 Extracorporeal shock wave lithotripsy of calculus of kidney Allyson SALEEM Start: 02-07-2018 Cholecystectomy Allyson SALEEM Start: 02-08-2016 Cataract surgery Baldomero SALEEM Start: 02-07-2007 Colonoscopy Allyson REZA TERS Start: 01-27-2007 Colonoscopy Andrei adkins MD Work Phone: Start: 01-07-2005 Panniculectomy Allyson SALEEM Start: 02-07-2002 Biopsy of uterine ligament Allyson SALEEM Start: 02-07-2002 Colonoscopy Allyson REZA TERS Start: 02-07-2002 Arianne-en-Y gastrojejunostomy Allyson SALEEM Start: 02-07-1977 Ligation of fallopian tube Allyson SALEEM Start: 02-08-1948 Tonsillectomy Allyson CESPEDES Biopsy Andrei fonseca Work Phone: Cardioversion Andrei martell Work Phone: Cataract surgery Andrei T Def ze Work Phone: Cholecystectomy Andrei Walker Defr ance Work Phone: Colonoscopy Andrei Walker Defranc e Work Phone: Esophagogastrostomy, antesternal or antethoracic Andrei Walker [place] Work Phone: Comment on above: History of Gastric S urgery For Morbid Obesity Gastric Bypass; Ligation of fallopian tube Maryuri avid T [place] Work Phone: Lithotripsy Andrei Walker Defranc e Work Phone: Operation on mouth Andrei Walker D efrance Work Phone: Panniculectomy Andrei Walker Defra nce Work Phone: Tonsillectomy Andrei Formanran ce Work Phone: Plan of Treatment Date Care Activity Detail Author Start: 09-13-2025 Thyroid stimulating hormone measurement TSH Level [place] Start: 08-13-2025 End: 08-13-2025 Patient encounter procedure 08/13/2025 1:00 PM EDT Office Visit [facility] [address] [place] [id number] Jerome Quick MD [address] [place] [id number] [facility] Start: 08-08-2025 Depression Screening Depression Screening [facility] Start: 08-08-2025 Fall Risk Screening Fall Risk Screening [facility] Start: 08-08-2025 Medicare Annual Wellness Visit Medicare Annual Wellness Visit [facility] Start: 08-08-2025 Tobacco Screening Tobacco Screening [facility] Start: 07-26-2025 Depression Screening Depression Screening [facility] Start: 07-26-2025 Tobacco Screening Tobacco Screening [facility] Start: 05-16-2025 Tobacco Screening Tobacco Screening [facility] Start: 04-09-2025 Tobacco Screening Tobacco Screening [facility] Start: 02-24-2025 End: 07-25-2025 Aspartate aminotransferase [Enzymatic activity/volume] in Serum or Plasma by With P-5'-P Aspartate Aminotransferase Lab Routine 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 use Paroxysmal atrial fibrillation (Multi) Expected: 02/24/2025, Expires: 07/25/2025 [place] Work Phone: Comment on above: Expected: 02/24/2025, Expires: Start: 02-24-2025 End: 07-25-2025 Basic metabolic 2000 panel - Serum or Plasma Basic Metabolic Panel Lab Routine 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 use Paroxysmal atrial fibrillation (Multi) Expected: 02/24/2025, Expires: 07/25/2025 [place] Work Phone: Comment on above: Expected: 02/24/2025, Expires: Start: 02-24-2025 End: 07-25-2025 Thyrotropin [Units/volume] in Serum or Plasma Thyroid Stimulating Hormone Lab Routine 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 use Paroxysmal atrial fibrillation (Multi) Expected: 02/24/2025, Expires: 07/25/2025 [place] Work Phone: Comment on above: Expected: 02/24/2025, Expires: Start: 02-14-2025 End: 02-14-2025 Patient encounter procedure 02/14/2025 1:15 PM EST Office Visit [facility] [address] [place] [id number] Jerome Quick MD [address] [place] [address] [facility] Start: 01-24-2025 Depression Screening Depression Screening [facility] Start: 01-24-2025 Fall Risk Screening Fall Risk Screening [facility] Start: 01-24-2025 Tobacco Screening Tobacco Screening [facility] Start: 01-24-2025 End: 07-25-2025 XR Chest 2 Views XR chest 2 views Imaging Routine 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 use Paroxysmal atrial fibrillation (Multi) Expected: 01/24/2025, Expires: 07/25/2025 [place] Work Phone: Comment on above: Expected: 01/24/2025, Expires: Start: 12-15-2024 Thyroid stimulating hormone measurement TSH Level [place] Start: 12-13-2024 Echocardiography Echocardiogram [place] Start: 12-05-2024 End: 12-05-2024 Follow-up encounter 12/05/2024 2:00 PM EDT Follow Up Anticoagulation [facility] Medication Management [address] [place] [address] [facility] Medication Management Start: 11-29-2024 End: 11-29-2024 Patient encounter procedure 11/29/2024 10:50 AM EDT Office Visit [facility] [address] [facility] [address] [place] [phone] Yvonne Haas MD [address] [facility] [address] [place] [address] [facility] Start: 11-07-2024 End: 11-07-2024 Follow-up encounter 11/07/2024 2:00 PM EDT Follow Up Anticoagulation [facility] Pharm[facility] Medication Management [address] [place] [address] [facility] Medication Management Start: 10-10-2024 End: 10-10-2024 Follow-up encounter 10/10/2024 2:00 PM EDT Follow Up Anticoagulation [facility] Medication Management [address] [place] [address] [facility] Medication Management Start: 10-08-2024 COVID-19 Vaccine ( season) COVID-19 Vaccine ( season) [facility] Start: 10-08-2024 Influenza vaccination [facility] Start: 10-02-2024 End: 10-02-2024 Patient encounter procedure 10/02/2024 1:30 PM EDT Appointment [facility] [facility] [address] [place] [phone] [facility] Start: 09-24-2024 End: 07-25-2026 US Heart Transthoracic Transthoracic Echo Limited Echocardiography Routine Cardiomyopathy, unspecified type (Multi) Chronic diastolic congestive heart failure Expected: 09/24/2024 (Approximate), Expires: 07/25/2026 [place] Work Phone: Comment on above: Expected: 09/24/2024 (Approximate), Expi res: 07/25/2026 Start: 09-12-2024 End: 09-12-2024 Follow-up encounter 09/12/2024 2:00 PM EDT Follow Up Anticoagulation [facility] Pharm[facility] Medication Management [address] [place] [address] [facility] Medication Management Start: 09-08-2024 End: 08-08-2025 CBC W Auto Differential panel - Blood CBC auto differential Lab Routine Essential hypertension Expected: 09/08/2024 (Approximate), Expires: 08/08/2025 [employer] Comment on above: Expected: 09/08/2024 (Approximate), Expi res: 08/08/2025 Start: 09-08-2024 End: 08-08-2025 Comprehensive metabolic 2000 panel - Serum or Plasma Comprehensive metabolic panel Lab Routine Essential hypertension Expected: 09/08/2024 (Approximate), Expires: 08/08/[facility] on above: Expected: 09/08/2024 (Approximate), Expi res: 08/08/2025 Start: 09-08-2024 End: 08-08-2025 Lipid 1996 panel - Serum or Plasma Lipid profile Lab Routine Chronic diastolic congestive heart failure (CMS-HCC) Hypothyroidism (acquired) Expected: 09/08/2024 (Approximate), Expires: 08/08/2025 [employer] Work Phone: Comment on above: Expected: 09/08/2024 (Approximate), Expi res: 08/08/2025 Start: 09-08-2024 End: 08-08-2025 Thyrotropin [Units/volume] in Serum or Plasma TSH Lab Routine Essential hypertension Expected: 09/08/2024 (Approximate), Expires: 08/08/2025 [facility] Comment on above: Expected: 09/08/2024 (Approximate), Expi res: 08/08/2025 Start: 08-15-2024 End: 08-15-2024 Follow-up encounter 08/15/2024 1:45 PM EDT Follow Up Anticoagulation [facility] Pharm[facility] Medication Management [address] [place] [address] [facility] Medication Management Start: 08-14-2024 Adult BMI Screening Adult BMI Screening [facility] Start: 08-08-2024 End: 08-08-2024 Patient encounter procedure 08/08/2024 1:00 PM EDT Office Visit [facility] [address] [place] [phone] Jerome Quick MD [address] [place] [phone] [facility] Start: 08-04-2024 Medicare Annual Wellness Visit Medicare Annual Wellness Visit (AWV) [place] Start: 08-03-2024 Adult BMI Screening Adult BMI Screening [facility] Start: 08-03-2024 Depression Screening Depression Screening [facility] Start: 08-03-2024 Fall Risk Screening Fall Risk Screening [facility] Start: 08-03-2024 Medicare Annual Wellness Visit Medicare Annual Wellness Visit [facility] Start: 08-03-2024 Tobacco Screening Tobacco Screening [facility] Start: 08-01-2024 End: 07-25-2025 ECG 12 Lead [place] Work Phone: Comment on above: Expected: 08/01/2024 (Approximate), Expi res: 07/25/2025 Start: 08-01-2024 End: 08-01-2024 Professional / ancillary services management 08/01/2024 11:00 AM EDT Ancillary Procedure [address] [phone] [facility] Start: 07-25-2024 End: 07-25-2025 Complete Pulmonary Function Test (Spirometry/DLCO/Lung Volumes) Complete Pulmonary Function Test (Spirometry/DLCO/Lung Volumes) PFT Routine 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 use Paroxysmal atrial fibrillation (Multi) Expected: 07/25/2024 (Approximate), Expires: 07/25/2025 [facility] Service Area Work Phone: Comment on above: Expected: 07/25/2024 (Approximate), Expi res: 07/25/2025 Start: 07-25-2024 End: 07-25-2024 Patient encounter procedure 07/25/2024 10:30 AM EDT Office Visit [facility] [address] [phone] Yvonne Haas MD 703 [facility] 2, [address] [phone] [facility] Start: 06-29-2024 End: 06-29-2024 Follow-up encounter 06/29/2024 3:15 PM EDT Follow Up Anticoagulation [facility] Pharm[facility] Medication Management [address] [place] [address] [facility] Medication Management Start: 06-18-2024 End: 06-18-2024 Follow-up encounter 06/18/2024 1:00 PM EDT Follow Up Anticoagulation [facility] Medication Management [address] [facility] [place] [address] [facility] Medication Management Start: 06-01-2024 End: 06-01-2024 Follow-up encounter 06/01/2024 1:30 PM EDT Follow Up Anticoagulation [facility] Medication Management [address] [place] [address] [facility] Medication Management Start: 05-27-2024 COVID-19 Vaccine ( season) COVID-19 Vaccine () [place] Start: 05-27-2024 COVID-19 Vaccine ( season) COVID-19 Vaccine () [facility] Start: 05-16-2024 End: 05-16-2024 Follow-up encounter 05/16/2024 3:15 PM EDT Follow Up Anticoagulation [facility] Medication Management [address] [place] [address] [facility] Medication Management Start: 05-09-2024 End: 05-09-2024 Follow-up encounter 05/09/2024 1:45 PM EDT Follow Up Anticoagulation [facility] Medication Management [address] [place] [address] [facility] Medication Management Start: 04-30-2024 End: 04-30-2024 Follow-up encounter 04/30/2024 11:45 AM EDT Follow Up Anticoagulation [facility] Medication Management [address] [place] [address] [facility] Medication Management Start: 04-16-2024 End: 04-16-2024 Follow-up encounter 04/16/2024 11:30 AM EDT Follow Up Anticoagulation [facility] Medication Management [address] [place] [address] [facility] Medication Management Start: 03-22-2024 End: 03-22-2024 Follow-up encounter 03/22/2024 11:45 AM EST Follow Up Anticoagulation [facility] Medication Therapy Management [address] [place] [address] [facility] Medication Therapy Management Start: 03-14-2024 End: 03-14-2024 Patient encounter procedure 03/14/2024 11:30 AM EST Appointment [facility] - Pulmonary Function [address] [place] [address] [facility] Pulmonary Function Start: 03-05-2024 End: 03-05-2024 Follow-up encounter 03/05/2024 11:45 AM EST Follow Up Anticoagulation [facility] Medication Therapy Management [address] [place] [address] [facility] Medication Therapy Management Start: 02-10-2024 End: 02-10-2024 Follow-up encounter 02/10/2024 10:45 AM EST Follow Up Anticoagulation [facility] Medication Therapy Management [address] [place] [address] [facility] Med[facility] Therapy Management Start: 02-02-2024 Adult BMI Screening Adult BMI Screening [facility] Start: 02-02-2024 Depression Screening Depression Screening [facility] Start: 02-02-2024 Fall Risk Screening Fall Risk Screening [facility] Start: 02-02-2024 Tobacco Screening Tobacco Screening [facility] Start: 01-25-2024 End: 01-25-2024 Patient encounter procedure 01/25/2024 9:15 AM EST Office Visit [facility] [address] [place] [phone] Andrei Wiseman MD [address] [place] [address] [facility] Start: 01-24-2024 End: 01-24-2024 Follow-up encounter 01/24/2024 11:45 AM EST Follow Up Anticoagulation [facility] Medication Therapy Management [address] [place] [address] [facility] Medication Therapy Management Start: 01-22-2024 Echocardiography [facility] Start: 01-13-2024 End: 01-13-2024 Follow-up encounter 01/13/2024 11:45 AM EST Follow Up Anticoagulation [facility] Medication Therapy Management [address] [place] [address] [facility] Medication Therapy Management Start: 12-30-2023 End: 12-30-2023 Follow-up encounter 12/30/2023 11:30 AM EST Follow Up Anticoagulation [facility] Medication Therapy Management [address] [place] [address] [facility] Med[facility] Therapy Management Start: 12-23-2023 End: 12-23-2023 Follow-up encounter 12/23/2023 11:30 AM EST Follow Up Anticoagulation [facility] Medication Therapy Management [address] [place] [address] [facility] Medication Therapy Management Start: 12-19-2023 End: 12-19-2023 Professional / ancillary services management 12/19/2023 10:00 AM EST Ancillary Procedure [facility] [address] [phone] [facility] Start: 12-16-2023 End: 12-16-2023 Follow-up encounter 12/16/2023 3:15 PM EST Follow Up Anticoagulation [facility] Medication Therapy Management [address] [place] [address] [facility] Med[facility] Therapy Management Start: 12-16-2023 Subsequent hospital visit by physician 12/16/2023 2:24 PM EST Hospital Encounter [facility] [address] [place] [address] Paroxysmal atrial fibrillation (CMS-HCC) (Primary Dx) [facility] Comment on above: Paroxysmal atrial fibrillation (CMS-HCC) (Primary Dx) Start: 12-14-2023 End: 12-14-2023 Professional / ancillary services management 12/14/2023 2:00 PM EST Ancillary Procedure [facility] [address] [place] [phone] [facility] Start: 12-14-2023 End: 12-14-2023 Patient encounter procedure 12/14/2023 12:30 PM EST [facility] [address] [place] [phone] [facility] Start: 12-13-2023 End: 12-12-2024 Complete Pulmonary Function Test (Spirometry/DLCO/Lung Volumes) Complete Pulmonary Function Test (Spirometry/DLCO/Lung Volumes) PFT Routine Paroxysmal atrial fibrillation (Multi) 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 use Expected: 12/13/2023 (Approximate), Expires: 12/12/2024 [place] Work Phone: Comment on above: Expected: 12/13/2023 (Approximate), Expi res: 12/12/2024 Start: 12-13-2023 End: 12-12-2024 Holter monitor study Holter Or Event Rn [facility] Routine PVC (premature ventricular contraction) Expected: 12/13/2023 (Approximate), Expires: 12/12/2024 [place] Work Phone: Comment on above: Expected: 12/13/2023 (Approximate), Expi res: 12/12/2024 Start: 12-13-2023 End: 12-12-2024 Thyrotropin [Units/volume] in Serum or Plasma Thyroid Stimulating Hormone Lab Routine Paroxysmal atrial fibrillation (Multi) 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 use Expected: 12/13/2023 (Approximate), Expires: 12/12/2024 [place] Work Phone: Comment on above: Expected: 12/13/2023 (Approximate), Expi res: 12/12/2024 Start: 12-13-2023 End: 12-12-2025 Heart Transthoracic Transthoracic Echo Complete Echocardiography Routine Dilated cardiomyopathy (Multi) Expected: 12/13/2023 (Approximate), Expires: 12/12/2025 [facility] Service Area Work Phone: Comment on above: Expected: 12/13/2023 (Approximate), Expi res: 12/12/2025 Start: 12-09-2023 End: 12-09-2023 Follow-up encounter 12/09/2023 11:00 AM EDT Follow Up Anticoagulation [facility] Medication Therapy Management [address] [place] [address] [facility] Therapy Management Start: 11-30-2023 End: 11-30-2023 Follow-up encounter 11/30/2023 11:45 AM EDT Follow Up Anticoagulation [facility] Medication Therapy Management [address] [place] [address] [facility] Med[facility] Therapy Management Start: 11-18-2023 End: 11-18-2023 Follow-up encounter 11/18/2023 11:30 AM EDT Follow Up Anticoagulation [facility] Medication Therapy Management [address] [place] [address] [facility] Med[facility] Therapy Management Start: 11-11-2023 End: 11-11-2023 Follow-up encounter 11/11/2023 10:45 AM EDT Follow Up Anticoagulation [facility] Medication Therapy Management [address] [place] [address] [facility] Med[facility] Therapy Management Start: 11-08-2023 End: 11-08-2023 Follow-up encounter 11/08/2023 9:00 AM EDT Follow Up Anticoagulation [facility] Medication Therapy Management [address] [place] [address] [facility] Med[facility] Therapy Management Start: 11-04-2023 End: 11-04-2023 Follow-up encounter 11/04/2023 1:00 PM EDT Follow Up Anticoagulation [facility] Medication Therapy Management [address] [place] [address] [facility] Med[facility] Therapy Management Start: 10-31-2023 End: 10-31-2023 Clinical Support 10/31/2023 3:30 PM EDT Clinical Support [facility] Medication Therapy Management [address] [place] [address] [facility] Therapy Management Start: 10-28-2023 End: 10-28-2023 Anticoagulant drug monitoring 10/28/2023 1:00 PM EDT New Anticoagulation [facility] Medication Therapy Management [address] [place] [address] [facility] Med[facility] Therapy Management Start: 10-09-2023 COVID-19 Vaccine ( season) COVID-19 Vaccine () [facility] Start: 10-09-2023 Influenza vaccination Influenza Vaccine [facility] Start: 08-04-2023 End: 08-03-2024 CBC W Auto Differential panel - Blood CBC auto differential Lab Routine Essential hypertension Paroxysmal A-fib ([facility]) Expected: 08/04/2023, Expires: 08/03/2024 [facility] Comment on above: Expected: 08/04/2023, Expires: Start: 08-04-2023 End: 08-03-2024 Comprehensive metabolic 2000 panel - Serum or Plasma Comprehensive metabolic panel Lab Routine Essential hypertension Paroxysmal A-fib ([facility]) Expected: 08/04/2023, Expires: 08/03/2024 [facility] Comment on above: Expected: 08/04/2023, Expires: Start: 08-04-2023 End: 08-03-2024 Lipid 1996 panel - Serum or Plasma Lipid profile Lab Routine Essential hypertension Paroxysmal A-fib ([facility]) Expected: 08/04/2023, Expires: 08/03/2024 [facility] Comment on above: Expected: 08/04/2023, Expires: Start: 08-04-2023 End: 08-03-2024 Thyroid profile includes TSH FT4 Thyroid profile includes TSH FT4 Lab Routine Essential hypertension Paroxysmal A-fib ([facility]) Expected: 08/04/2023, Expires: 08/03/2024 [facility] Comment on above: Expected: 08/04/2023, Expires: Start: 08-04-2023 End: 08-04-2023 Patient encounter procedure 08/04/2023 9:30 AM EDT Office Visit [facility] [address] [place] [phone] Andrei Wiseman MD [address] [place], [place] [phone] [facility] Start: 08-03-2023 Medicare Annual Wellness Visit Medicare Annual Wellness Visit [facility] Start: 05-24-2023 End: 05-24-2023 Patient encounter procedure 05/24/2023 9:10 AM EDT Office Visit [address] [place] [address] Jose Martin Jones MD [address] [facility] [address] [place] [address] [facility] Start: 04-14-2023 COVID-19 Vaccine ( season) COVID-19 Vaccine ( season) [facility] Start: 03-14-2023 End: 03-14-2023 Professional / ancillary services management 03/14/2023 3:00 PM EST Ancillary Procedure [place] [id number] [facility] [address] [place] [address] [facility] Start: 03-14-2023 End: 03-14-2023 Patient encounter procedure 03/14/2023 2:15 PM EST Appointment [facility] [address] [facility] [address] [place] [phone] [facility] Start: 03-14-2023 End: 03-14-2023 Patient encounter procedure [facility] Start: 03-01-2023 End: 03-01-2024 Holter monitor study Holter Or Event Rn [facility] Routine Sick sinus syndrome (CMS/HCC) Paroxysmal atrial fibrillation (CMS/HCC) Expected: 03/01/2023 (Approximate), Expires: 03/01/2024 [facility] Service Area Work Phone: Comment on above: Expected: 03/01/2023 (Approximate), Expi res: 03/01/2024 Start: 03-01-2023 End: 03-01-2025 NM Heart Perfusion W stress and W radionuclide IV Nuclear Stress Test Cardiac Nuclear Medicine Routine Other cardiomyopathy (CMS/HCC) Paroxysmal atrial fibrillation (CMS/HCC) Essential hypertension, benign Abnormal electrocardiogram (ECG) (EKG) Expected: 03/01/2023 (Approximate), Expires: 03/01/2025 [place] Work Phone: Comment on above: Expected: 03/01/2023 (Approximate), Expi res: 03/01/2025 Start: 03-01-2023 End: 03-01-2023 Patient encounter procedure 03/01/2023 12:30 PM EST Office Visit [facility] [address] [facility] [address] [place] [phone] Delilah Turner, CLOTH SHADER-PERSONNEL GENERALIST MANAGER [address] [facility] [address] [place], [place] [phone] [facility] Start: 02-21-2023 End: 02-22-2024 Basic metabolic 2000 panel - Serum or Plasma Basic Metabolic Panel Lab Routine Cardiomyopathy, unspecified type (CMS/HCC) 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 use Sick sinus syndrome (CMS/HCC) Expected: 02/21/2023 (Approximate), Expires: 02/22/2024 [facility] Area Work Phone: Comment on above: Expected: 02/21/2023 (Approximate), Expi res: 02/22/2024 Start: 02-21-2023 End: 02-22-2024 Thyrotropin [Units/volume] in Serum or Plasma Thyroid Stimulating Hormone Lab Routine Cardiomyopathy, unspecified type (CMS/HCC) 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 use Sick sinus syndrome (CMS/HCC) Expected: 02/21/2023 (Approximate), Expires: 02/22/2024 [place] Work Phone: Comment on above: Expected: 02/21/2023 (Approximate), Expi res: 02/22/2024 Start: 02-21-2023 End: 02-21-2023 Patient encounter procedure 02/21/2023 10:30 AM EST Office Visit [facility] [address] [place] [phone] Delilah Turner, CLOTH SHADER-PERSONNEL GENERALIST MANAGER [address] [place] [address] [facility] Start: 02-08-2023 COVID-19 Vaccine (4 - Pfizer series) COVID-19 Vaccine (4 - Pfizer series) [place] Start: 01-21-2023 End: 01-21-2023 Patient encounter procedure 01/21/2023 10:45 AM EST Appointment [facility] [address] [place] [phone] [facility] Start: 01-17-2023 End: 01-18-2024 Basic metabolic 2000 panel - Serum or Plasma Basic Metabolic Panel Lab Routine Cardiomyopathy, unspecified type (CMS/HCC) Expected: 01/17/2023 (Approximate), Expires: 01/18/2024 [place] Work Phone: Comment on above: Expected: 01/17/2023 (Approximate), Expi res: 01/18/2024 Start: 01-17-2023 End: 01-18-2024 Holter monitor study Holter Or Event Rn [facility] Routine Paroxysmal atrial fibrillation (CMS/HCC) Expected: 01/17/2023 (Approximate), Expires: 01/18/2024 [place] Work Phone: Comment on above: Expected: 01/17/2023 (Approximate), Expi res: 01/18/2024 Start: 01-17-2023 End: 01-18-2024 Natriuretic peptide B [Mass/volume] in Blood B-Type Natriuretic Peptide Lab Routine Cardiomyopathy, unspecified type (CMS/HCC) Expected: 01/17/2023 (Approximate), Expires: 01/18/2024 [place] Work Phone: Comment on above: Expected: 01/17/2023 (Approximate), Expi res: 01/18/2024 Start: 01-17-2023 End: 01-17-2025 Heart Transthoracic Transthoracic Echo (TTE) Complete Echocardiography Routine Cardiomyopathy, unspecified type (CMS/HCC) Abnormal electrocardiogram (ECG) (EKG) Expected: 01/17/2023 (Approximate), Expires: 01/17/2025 [facility] Service Area Work Phone: Comment on above: Expected: 01/17/2023 (Approximate), Expi res: 01/17/2025 Start: 01-17-2023 [facility], Provider: Delilah Nassar, Status: Pen, Time: 9:30 AM [facility], Provider: Delilah Nassar, Status: Pen, Time: 9:30 AM [facility] [address] DO Work Phone: Start: 10-08-2022 Influenza vaccination Influenza Vaccine [facility] Start: 10-08-2022 Screening for osteoporosis Bone Density Scan [place] Start: 08-31-2022 Echocardiography Echocardiogram [place] Start: 08-06-2022 [facility], Provider: Jose Martin Jones, Status: Pen, Time: 2:00 PM [facility], Provider: Jose Martin Jones, Status: Pen, Time: 2:00 PM [facility] [address] DO Work Phone: Start: 11-10-2021 HOLTER MON, Provider: PARKER DUGAN CHARGE ACCOUNT AUTHORIZER 1,[id number], Status: Pen, Time: 10:00 AM HOLTER MON, Provider: PARKER DUGAN CHARGE ACCOUNT AUTHORIZER 1,[id number], Status: Pen, Time: 10:00 AM -[facility] [address] DO Work Phone: Start: 10-21-2021 [facility], Provider: Delilah Nassar, Status: Pen, Time: 9:00 AM [facility], Provider: Delilah Nassar, Status: Pen, Time: 9:00 AM -[facility] [facility] DO Work Phone: Start: 10-08-2021 Screening for osteoporosis Bone Density Scan [place] Start: 09-21-2021 STRESS NUC, Provider: TANISHA HHVI NUCLEAR 01,[id number], Status: Pen, Time: 12:00 PM STRESS NUC, Provider: TANISHA HHVI NUCLEAR 01,[id number], Status: Pen, Time: 12:00 PM -[facility] [facility] DO Work Phone: Start: 09-14-2021 EKG, Provider: PARKER DUGAN CHARGE ACCOUNT AUTHORIZER 1,[id number], Status: Pen, Time: 11:00 AM EKG, Provider: PARKER DUGAN CHARGE ACCOUNT AUTHORIZER 1,[id number], Status: Pen, Time: 11:00 AM -[facility] [facility] DO Work Phone: Start: 09-07-2021 FUV, Provider: Delilah Nassar, Status: Pen, Time: 11:30 AM FUV, Provider: Delilah Nassar, Status: Pen, Time: 11:30 AM [facility] DO Work Phone: Start: 08-31-2021 ECHO, Provider: TANISHA HHVI ULTRASOUND 01,[id number], Status: Pen, Time: 10:45 AM ECHO, Provider: TANISHA HHVI ULTRASOUND 01,[id number], Status: Pen, Time: 10:45 AM -[facility] DO Work Phone: Start: 2020 RSV High Risk: (Elderly (60+) or Population) (1 - 1-dose 75+ series) RSV High Risk: (Elderly (60+) or Population) (1 - 1-dose 75+ series) [place] Start: 01-28-2012 Screening for malignant neoplasm of colon Colonoscopy [facility] Start: 09-05-1967 DTaP/Tdap/Td Vaccines (1 - Tdap) DTaP/Tdap/Td Vaccines (1 - Tdap) [place] Start: 1964 DTaP,Tdap and Td Vaccines (1 - Tdap) DTaP,Tdap and Td Vaccines (1 - Tdap) [facility] Start: 09-05-1963 Adult BMI Follow Up Plan Adult BMI Follow Up Plan [facility] Start: 09-05-1963 Diabetes mellitus screening Diabetes Screening [place] Start: 09-05-1963 Hepatitis C screening Hepatitis C Screening [place] Start: 1945 Creatinine measurement Creatinine Level [place] Start: 1945 Lipid panel Lipid Panel [place] Start: 1945 Medicare Annual Wellness Visit Medicare Annual Wellness Visit (AWV) [place] Start: 1945 Potassium measurement Potassium Level [place] Start: 1945 Skin Cancer Screening Skin Cancer Screening [place] Start: 1945 Thyroid stimulating hormone measurement TSH Level [place] End: 08-03-2024 DBT Breast - bilateral screening Mammography screening bilateral with CAD Imaging Routine Encounter for screening mammogram for malignant neoplasm of breast 1 Occurrences starting 08/04/2023 until 08/03/2024 [employer] Work Phone: Comment on above: 1 Occurrences starting 08/04/2023 until 08/03/2024 ECG 12 Lead ECG 12 Lead ECG Routine Paroxysmal atrial fibrillation (CMS/HCC) 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 use 01/17/2023 10:04 AM [facility] [place] Work Phone: ECG 12 Lead ECG 12 Lead ECG Routine Sick sinus syndrome (CMS/HCC) 02/21/2023 10:30 AM [facility] [place] Work Phone: ECG 12 Lead ECG 12 Lead ECG Routine 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 use 03/01/2023 12:30 PM [facility] [place] Work Phone: Patient Education Shortness of b reath International Normalized Ratio Anxiety, Adult ED [facility] Work Phone: Patient referral [facility] Work Phone: End: 01-21-2023 [facility] Work Phone: Comment on above: Once for 1 Occurrences starting 01/22/20 until 01/21/2023 End: 10-02-2024 [facility] Work Phone: Comment on above: Once for 1 Occurrences starting 10/03/19 until 10/02/2024 Immunizations Immunization Date Immunization Notes Care Provider [facility] 11-27-2023 influenza, high dose seasonal, preservative-free Pm 1 [facility] 11-27-2023 influenza virus vacc ine, unspecified formulation Pmh 1 [facility] 12-14-2022 Influenza, High-dose , Quadrivalent Pm 1 [facility] 08-20-2022 zoster vaccine recombinant Andrei Wiseman MD Work Phone: [facility] 04-01-2022 zoster vaccine recombinant Andrei Wiseman Work Phone: [facility] 250 DO Work Phone: 11-10-2021 influenza, high dose seasonal, preservative-free Delilah Turner CLOTH SHADER-PERSONNEL GENERALIST MANAGER Work Phone: [place] Work Phone: 11-10-2021 influenza, seasonal, injectable Andrie Wiseman Work Phone: [facility] 250 DO Work Phone: Comment on above: Series: 11-10-2021 influenza virus vacc ine, unspecified formulation Andrei Wiseman MD Work Phone: [facility] 10-23-2021 Fluzone High-Dose Quadrivalent 0.7 ML Intramuscular Suspension Prefilled Syringe Andrei Wiseman Work Phone: [facility] 250 DO Work Phone: 10-23-2021 influenza, high dose seasonal, preservative-free Delilah Turner CLOTH SHADER-PERSONNEL GENERALIST MANAGER Work Phone: [place] Work Phone: 10-23-2021 Moderna COVID-19 Biv al Booster 50 MCG/0.5ML Intramuscular Suspension Andrei Wiseman Work Phone: [facility] 250 DO Work Phone: 12-19-2020 Pfizer-BioNTech COVI D-19 Vacc 30 MCG/0.3ML Intramuscular Suspension Andrei Wiseman Work Phone: [place] 12-10-2020 Fluzone High-Dose Quadrivalent 0.7 ML Intramuscular Suspension Prefilled Syringe Andrei Wiseman Work Phone: [facility] 250 DO Work Phone: 12-10-2020 influenza, high dose seasonal, preservative-free Delilah Turner CLOTH SHADER-PERSONNEL GENERALIST MANAGER Work Phone: [place] 04-22-2020 Pfizer-BioNTech COVI D-19 Vacc 30 MCG/0.3ML Intramuscular Suspension Andrei Wiseman Work Phone: [place] 04-07-2020 SARS-CoV-2 (COVID-19 ) mRNA BNT-162b2 amado SALEEM [facility] 04-01-2020 Pfizer-BioNTech COVI D-19 Vacc 30 MCG/0.3ML Intramuscular Suspension Andrei Wiseman Work Phone: [place] 03-10-2020 SARS-CoV-2 (COVID-19 ) mRNA BNT-162b2 vax Allyson SALEEM [facility] 11-11-2019 AS03 adjuvant Andrei Wiseman MD Work Phone: [facility] 11-11-2019 Fluad Quadrivalent 0 .5 ML Intramuscular Prefilled Syringe Andrei Wiseman Work Phone: [facility] 11-11-2019 Seasonal trivalent influenza vaccine, adjuvanted, preservative free Andrei Wiseman MD Work Phone: [facility] 12-11-2018 Influenza, injectabl e, Madin [place] Canine Kidney, quadrivalent with preservative Andrei Wiseman Work Phone: [facility] 12-11-2018 Influenza, injectabl e, Madin [place] Canine Kidney, preservative free, quadrivalent Andrei Wiseman MD Work Phone: [facility] 11-24-2017 AS03 adjuvant Andrei Wiseman MD Work Phone: [facility] 11-24-2017 influenza virus vacc ine, unspecified formulation Andrei Wiseman MD Work Phone: [facility] 11-24-2017 pneumococcal polysaccharide vaccine, 23 valent Andrei Wiseman Work Phone: [place] 11-24-2017 Seasonal trivalent influenza vaccine, adjuvanted, preservative free Andrei Wiseman Work Phone: [facility] 11-16-2016 influenza virus vacc ine, unspecified formulation Andrei Wiseman MD Work Phone: [facility] 11-16-2016 influenza, high dose seasonal, preservative-free Andrei Wiseman Work Phone: [facility] 11-16-2016 pneumococcal conjuga te vaccine, 13 valent Andrei Wiseman Work Phone: [place] 11-20-2014 influenza, injectabl e, quadrivalent, preservative free Andrei Wiseman Work Phone: [facility] 11-11-2014 influenza virus vacc ine, unspecified formulation Andrei Wiseman MD Work Phone: [facility] 11-11-2014 influenza, high dose seasonal, preservative-free Andrei Wiseman Work Phone: [place] [address] DO Work Phone: 01-10-2014 influenza virus vacc ine, unspecified formulation Andrei Wiseman MD Work Phone: [facility] 01-10-2014 influenza, high dose seasonal, preservative-free Andrei Wiseman Work Phone: [facility] 250 DO Work Phone: 07-26-2012 pneumococcal polysaccharide vaccine, 23 valent Andrei Wiseman Work Phone: [facility] 250 DO Work Phone: Payers Date Payer Category Payer Self-pay [id number] 2018 Commercial Managed [place] [address] [id number] 2018 Medicare supplementa l policy (as second payer) [employer] SENIOR SUPPLEMENT [id number] .[id number] 5 2018 Private Health Insurance [id number] .[id number] .[id number] 2010 Medicare [id number]. 1.13.647 .2.7.3.015659.315 1959 Medicare [id number] 1959 Private Health Insurance [facility] [id number] 1945 Unknown [id number] 2.16.840.1.746078.3.579 .2.593 1945 Unknown [id number] 2.16.840.1.456828.3.579 .2.593 1945 Unknown [id number] 2.16.840.1.980592.3.579 .2.593 1945 Unknown [id number] 2.16.840.1.453748.3.579 .2.593 1945 Unknown [id number] 2.16840.1.310498.3.579 .2.593 1945 Unknown [id number] 2.16.840.1.440996.3.579 .2.593 1945 Unknown [id number] 2.16.840.1.815750.3.579 .2.1068 1945 Unknown [id number] 2.16840.1.784496.3.579 .2.1068 1945 Unknown [id number] 2.16.840.1.707579.3.579 .2.1068 1945 Unknown [id number] 2.16.840.1.856250.3.579 .2.356 1945 Unknown [id number] 2.16.840.1.023468.3.579 .2.356 1945 Unknown [id number] 2.16.840.1.928897.3.579 .2.356 1945 Unknown [id number] 2.16.840.1.397911.3.579 .2.356 1945 Unknown [id number] 2.16.840.1.927054.3.579 .2.356 1945 Unknown [id number] 2.16.840.1.229510.3.579 .2.356 1945 Unknown [id number] 2.16.840.1.730017.3.579 .2.356 1945 Unknown [id number] 2.16.840.1.895536.3.579 .2.1286 1945 Unknown [id number] 2.16.840.1.617099.3.579 .2.1286 1945 Unknown [id number] 2.16.840.1.063606.3.579 .2.1286 1945 Unknown [id number] 2.16.840.1.397689.3.579 .2.727 1945 Unknown [id number] 2.16.840.1.117491.3.579 .2.727 1945 Unknown [id number] 2.16.840.1.614658.3.579 .2.727 1945 Unknown [id number] 2.16.840.1.394191.3.579 .2.1246 1945 Unknown [id number] 2.16.840.1.363374.3.579 .2.1246 1945 Unknown [id number] 2.16.840.1.662761.3.579 .2.727 1945 Unknown [id number] 2.16.840.1.131015.3.579 .2.1244 1945 Unknown [id number] 2.16.840.1.723493.3.579 .2.1244 1945 Unknown [id number] 2.16.840.1.434256.3.579 .2.124 1945 Unknown [id number] 2.16.840.1.451806.3.579 .2.1244 1945 Unknown [id number] 2.16.840.1.928320.3.579 .2.1285 1945 Unknown [id number] 2.16.840.1.592207.3.579 .2.128 1945 Unknown [id number] 2.16840.1.399257.3.579 .2.1285 1945 Unknown [id number] 2.840.1.942027.3.579 .2.1285 1945 Unknown [id number] 2.840.1.448639.3.579 .2.1285 1945 Unknown [id number] 2.0.1.352260.3.579 .2.1285 1945 Unknown [id number] 2.840.1.000596.3.579 .2.1285 1945 Unknown [id number] 2.840.1.705244.3.579 .2.1285 1945 Unknown [id number] 2.840.1.539474.3.579 .2.1285 1945 Unknown [id number] .0.1.672380.3.579 .2.1285 1945 Unknown [id number] 2.840.1.960021.3.579 .2.128 1945 Unknown [id number] 2.16840.1.471235.3.579 .2.1285 1945 Unknown [id number] 2.840.1.943632.3.579 .2.1285 1945 Unknown [id number] 2.840.1.224589.3.579 .2.1285 1945 Unknown [id number] 2.16840.1.948569.3.579 .2.1285 1945 Unknown [id number] 2.16840.1.790198.3.579 .2.1285 1945 Unknown [id number] 2.16840.1.263727.3.579 .2.1285 1945 Unknown [id number] 2.840.1.632241.3.579 .2.1285 1945 Unknown [id number] 2.840.1.147631.3.579 .2.1285 1945 Unknown [id number] 2.840.1.655498.3.579 .2.1285 1945 Unknown [id number] 2.840.1.536376.3.579 .2.1285 1945 Unknown [id number] 2.840.1.298284.3.579 .2.1285 1945 Unknown [id number] 2.840.1.860030.3.579 .2.1285 1945 Unknown [id number] 2.840.1.512592.3.579 .2.1285 1945 Unknown [id number] 2.840.1.183564.3.579 .2.1285 1945 Unknown [id number] 2.840.1.626402.3.579 .2.1285 1945 Unknown [id number] 2.840.1.037734.3.579 .2.1285 1945 Unknown [id number] 2.840.1.399181.3.579 .2.1285 1945 Unknown [id number] 2.840.1.939409.3.579 .2.1285 1945 Unknown [id number] 2.16.840.1.771849.3.579 .2.1286 1945 Unknown [id number] 2.16.840.1.716843.3.579 .2.1286 Medicare [id number] Unknown Unknown HCAP/HFA/FAP Active [id number] Unknown [id number] 2.16.840.1.928882.3.579 .2.531 Unknown [id number] 2.16.840.1.748270.3.579 .2.531 Unknown [id number] 2.16.840.1.824420.3.579 .2.531 Unknown [id number] 2.16.840.1.208970.3.579 .2.531 Social History Date Type Detail Facility Start: 02-21-2020 End: 01-17-2023 Occasional alcohol use Occasional alcohol use [facility] 250 DO Work Phone: Comment on above: Occasional soda 3 A WEEK OCCASIONAL TEA; Start: 1945 Sex Assigned At Female [facility] Start: 01-19-2022 End: 09-13-2022 Tobacco smoking status Never smoked tobacco (finding) [facility] Start: 01-01-2022 Tobacco smoking status Never [facility] Start: 02-21-2020 End: 01-17-2023 Sex Assigned At Female [facility] Start: 01-19-2022 End: 01-14-2023 Tobacco use and exposure Smokeless tobacco non-user [place] Work Phone: Start: 01-17-2023 Alcohol intake Current drinke r of alcohol (finding) [place] Work Phone: Start: 01-17-2023 Alcohol Comment almost none [facility] Work Phone: Start: 1945 Sex Assigned At Not on file [facility] Work Phone: Start: 01-07-2023 End: 12-13-2023 Exposure to SARS-CoV-2 (event) Not sure [place] Start: 02-21-2023 End: 08-01-2024 Alcohol intake Lifetime non-drinker (finding) [place] Work Phone: Start: 01-25-2024 End: 08-08-2024 Alcoholic beverage intake Current non-drinker of alcohol (finding) [facility] Start: 09-12-2014 End: 11-13-2018 Sex Female (finding) [facility] Sexual Orientation [facility] Goals Date Patient Goal Desired Activity /State Personal health goal Comment on above: Formatting of this n ote might be different from the original. Evaluation of progress towards goal: return home independent like prior to admission Functional Status Date Assessment Result Facility 09-16-2023 Functional Status N/A [facility] 09-13-2022 Functional Status N/A [facility] Clinical Notes 10-08-2020 to 11-07-2024 Olinda Elena, [facility] 11/07/2024 2:00 PM EDTTelephone Encounter - Olinda Elena, [facility] 11/02/2024 6:24 AM EDTTelephone Encounter - Olinda Elena, [facility] 11/02/2024 6:24 AM EDTPatient Instructions Note Date & Type Note Facility 11-07-2024 History of Present illness Narrative 15 minute bmga-tx-rznr follow-up anticoagulation appointment. INR performed in office per protocol. INR 2.2 (goal range: 2.0-3.0). Patient reports: Taking warfarin dosing as documented. 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 Olinda Elena RPH 11/07/24 1408 documented in this encounter [facility] 11-02-2024 Miscellaneous Notes Electronic refill request received. Updated script sent to [facility] per request. Warfarin 1 mg tabs take 2-3 tabs PO daily as directed by PPM #[id number] RF: 1 per CPA with Yvonne Haas MD. [facility] November 02, 2024 8:24 AM documented in this encounter [facility] 11-02-2024 Telephone encounter Note Electronic refill request received. Updated script sent to [facility] per request. Warfarin 1 mg tabs take 2-3 tabs PO daily as directed by PPMM #[id number] RF: 1 per CPA with Yvonne Haas MD. [facility] November 02, 2024 8:24 AM [facility] 10-10-2024 History of Present illness Narrative 15 minute meqj-zq-rilt follow-up anticoagulation appointment. INR performed in office [...] anticoagulant: YES INR was 2.2 on at [facility] after holding multiple days-- likely [...] 09/20/24. Will still be valid for November Anticoagulant prescription needed: No Seen referring provider [...] persists or worsens. Patient could benefit from [facility] Adherence Pharmacy pill packaging and patient is agreeable for referral to be sent: No Olinda Elena RPH 10/10/24 1441 documented in this encounter [facility] 09-17-2024 Hospital Discharge instructions Patient Education 09/17/2024 [...] including vitamins, herbs, eye drops, creams, and wbbb-ggw-bxtmjkq medicines. Any problems you or family members [...] provider tells you to take them. Taking mzuc-fss-pscxhwj medicines, vitamins, herbs, and supplements. Tests You [...] Follow these instructions at home: Medicines Take kiet-rjq-clbgcua and prescription medicines only as told by [...] provider. Document Revised: 10/07/2021 Document Reviewed: 09/05/2020 [place] Patient Education 2023 [employer]. 09/17/2024 11:06:38 Urethral Dilation Urethral Dilation Urethral [...] including vitamins, herbs, eye drops, creams, and zxos-wnb-qkxmmxc medicines. Any problems you or family members [...] unless your provider tells you to. Taking yqlb-cwt-winyaus medicines, vitamins, herbs, and supplements. General instructions [...] Follow these instructions at home: Medicines Take pnrq-qoj-yodccdh and prescription medicines only as told by [...] actions to prevent or treat constipation: ?Take bwoi-puv-ccmbsoj or prescription medicines. ?Eat foods that are [...] provider. Document Revised: 11/18/2022 Document Reviewed: 11/18/2022 [place] Patient Education 2023 [employer]. 09/17/2024 11:02:54 Dietary Guidelines to Help Prevent [...] include: ?8 oz (237 mL) of milk, akcjocl-dhgspgonebzg-paewf milk, and calcium-fortifiedfruit juice. Calcium-fortified means that [...] ?Spinach (cooked), rhubarb, beets, sweet potatoes, and Moldovan chard. ?Peanuts. ?Potato chips, greenlandic fries, and baked potatoes with skin on. ?Nuts and nut products. ?Chocolate. If you regularly take a diuretic medicine, make sure to eat at least 1 or 2 servings of fruits or vegetables that are high in potassium each day. These include: ?Avocado. ?Banana. ?Amelia, prune, carrot, or tomato juice. ?Baked potato. [...] magnesium, fish oil, or vitamin B6. Take sxzd-djb-xcyrkgu and prescription medicines only as told by [...] Casseroles. Pizza. Lasagna. Frozen meals. Potato chips. Citizen Of [place] fries. The items listed above may not [...] provider. Document Revised: 05/06/2022 Document Reviewed: 05/06/2022 [employer] Patient Education 2023 [employer]. Follow Up Care 09/16/2023 11:13:59 With:HARPER DE LA ROSA, Allyson Montenegro, URL Address: [address] [place] [address] [place] [address] When: Unknown Comments:sched cysto/UD [facility] Note Patient Education Nephrology Dietary Guidelines [...] ? 8 oz (237 mL) of milk, eavtxxd-szvlxulicruv-kzhdd milk, and calcium-fortifiedfruit juice. Calcium-fortified means that [...] Spinach (cooked), rhubarb, beets, sweet potatoes, and Moldovan chard. ? Peanuts. ? Potato chips, greenlandic fries, and baked potatoes with skin on. ? Nuts and nut products. ? Chocolate. ??? If you regularly take a diuretic medicine, make sure to eat at least 1 or 2 servings of fruits or vegetables that are high in potassium each day. These include: ? Avocado. ? Banana. ? Amelia, prune, carrot, or tomato juice. ? Baked [...] fish oil, or vitamin B6. ??? Take wirw-sqr-vgzwcxu and prescription medicines only as told by your health (more content not included)... [facility] 09-12-2024 History of Present illness Narrative 15 minute sqbc-ai-sbfy follow-up anticoagulation appointment. INR performed in office [...] RPH 09/12/24 1404 documented in this encounter [facility] 08-15-2024 History of Present illness Narrative 15 minute oqhn-un-mzoh follow-up anticoagulation appointment. INR performed in office [...] RPH 08/15/24 1343 documented in this encounter [facility] 08-08-2024 History of Present illness Narrative Subjective [...] Do you have a durable power of family law attorney?: (!) No Cognitive Screening Do you [...] for Medicare annual wellness exam Paroxysmal A-fib ([facility]) Rhythm controlled. 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 Yeast infection - clotrimazole-betamethasone (LOTRISONE) cream; [...] after 6 mo documented in this encounter [facility] 08-03-2024 Miscellaneous Notes Patient was on an antibiotic last week. She now believes she has a yeast infection. Patient asking if medication can be sent to [facility]. 1 dose of diflucan ordered. documented in this encounter [facility] 08-03-2024 Telephone encounter Note Patient was on an antibiotic last week. She now believes she has a yeast infection. Patient [facility] 08-03-2024 Telephone encounter Note 1 dose of diflucan ordered. [facility] 08-01-2024 History of Present illness [...] in office today documented in this encounter [place] Work Phone: 07-26-2024 History of Present illness Narrative Received BPA for DDI between warfarin and Medrol Dosepack. Dose and duration not expected to significantly impact INR, no warfarin dose adjustments at this time. Also prescribed Augmentin which does not interact with warfarin. Heriberto Parra RPH 07/26/24 1611 documented in this encounter [facility] 07-26-2024 History of Present illness Narrative [id number] [facility] [address] Patient: Eduardo Howard Date of : [...] List Items Addressed This Visit Paroxysmal A-fib ([facility]) (Chronic) Relevant Medications metoprolol tartrate (LOPRESSOR) 25 mg tablet Pulmonary emboli ([facility]) (Chronic) Other Visit Diagnoses Rhinopharyngitis - Primary [...] Diagnosis Date Arthritis Atrial fibrillation Bowel obstruction ([facility]) Chronic diastolic congestive heart failure ([facility]) 03/09/2019 Chronic kidney disease H/O gastric bypass HL (hearing loss) left hearing aid Hypertension Pulmonary embolism ([facility]) Shortness of breath Visual impairment glasses Past Surgical History: Procedure Laterality Date BREAST BIOPSY Right 2006 STEREOTACTIC BX BENIGN CARDIAC CATHETERIZATION CATARACT EXTRACTION COLONOSCOPY EGD N/A 03/05/2019 Performed by Lonnie Fields DO at [facility] EGD N/A 02/08/2019 Performed by Lonnie Fields DO at [facility] GASTRIC BYPASS INJECTION STEROID INTERMEDIATE JOINT UPPER Right 05/16/2024 Performed by Matthew Rapp MD at [facility] LAPAROSCOPIC CHOLECYSTECTOMY N/A 02/02/2019 Performed by Lonnie Fields DO at [facility] LITHOTRIPSY PANNICULECTOMY TONSILLECTOMY TOOTH EXTRACTION TUBAL [...] JEROME QUICK MD documented in this encounter [facility] 07-25-2024 History of Present illness Narrative HPI [...] Limited 7. 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 PVC (premature ventricular contraction) 10. BMI 32.0-32.9,adult 11. Never smoked cigarettes Scribe Attestation By signing my name below, Diane Esparza LPN , Scribe attest that this [...] discussion and plan. documented in this encounter [place] Work Phone: 07-25-2024 Instructions Diane Hwang LPN [...] be sent through Care Everywhere.Heart Healthy Diet (Congolese)documented in this encounter [place] Work Phone: 07-18-2024 History of Present illness Narrative 15 minute piem-qz-jved follow-up anticoagulation appointment. INR performed in office [...] bleeding/bleeding that persists or worsens. Olinda Elena [facility] 07/18/24 1345 [facility] History of Present illness Narrative 15 minute rdcs-eo-ogoo follow-up anticoagulation appointment. INR performed in office [...] bleeding/bleeding that persists or worsens. Olinda Elena [facility] 06/19/24 0913 documented in this encounter [facility] [employer] [facility] 06-07-2024 History of Present illness Narrative 15 minute rxhq-vv-vlwr follow-up anticoagulation appointment. INR performed in office [...] RPH 06/07/24 1428 documented in this encounter [facility] [employer] 05-18-2024 History of Present illness Narrative 15 minute ezxz-eu-uvaj follow-up anticoagulation appointment. INR performed in office [...] RPH 05/18/24 1430 documented in this encounter [facility] 05-09-2024 History of Present illness Narrative 15 minute jvpj-cq-eicg follow-up anticoagulation appointment. INR performed in office [...] bleeding/bleeding that persists or worsens. Olinda Elena [facility] 05/09/24 1343 documented in this encounter [facility] 04-30-2024 History of Present illness Narrative 15 minute pguv-rv-iasl follow-up anticoagulation appointment. INR performed in office [...] bleeding/bleeding that persists or worsens. Olinda Elena [facility] 04/30/24 1309 [facility] 04-16-2024 History of Present illness Narrative 15 minute jjtl-ax-qngb follow-up anticoagulation appointment. INR performed in office [...] RPH 04/16/24 1140 documented in this encounter [facility] [employer] [facility] [facility] 03-26-2024 History of Present illness Narrative 15 minute hpxx-oy-njrb follow-up anticoagulation appointment. INR performed in office [...] persists or worsens. Olinda Elena [facility] 03/26/24 0546 documented in this encounter [facility] 03-05-2024 History of Present illness Narrative 15 minute ajml-sn-oqpw follow-up anticoagulation appointment. INR performed in office [...] RPH 03/05/24 1152 documented in this encounter [facility] 02-20-2024 Note XR CHEST 2 VWS PROCEDURE: CHEST, TWO VIEWS (PA and Lateral), 02/20/2024 12:27 PM CLINICAL INDICATION: 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 use; Paroxysmal atrial fibrillation (CMS-HCC) COMPARISON: Chest 2 views 10/23/2020 IMPRESSION: 1. No acute cardiopulmonary disease. 2. Cardiac silhouette is mildly enlarged, stable. No pulmonary vascular congestion. Finalized by Osbaldo Oconnor MD on 02/20/2024 1:42 PM [facility] 02-20-2024 History of Present illness Narrative 15 minute qreg-ms-jixd follow-up anticoagulation appointment. INR performed in office [...] RPH 02/20/24 1215 documented in this encounter [facility] 02-02-2024 History of Present illness Narrative 15 minute zfrn-um-vpwt follow-up anticoagulation appointment. INR performed in office [...] RPH 02/02/24 1121 documented in this encounter [facility] 01-13-2024 History of Present illness Narrative 15 minute efrx-br-iyhf follow-up anticoagulation appointment. INR performed in office [...] RPH 01/13/24 1159 [facility] History of Present illness Narrative 15 minute unii-rc-hvky follow-up anticoagulation appointment. INR performed in office [...] persists or worsens. Olinda Elena RPH 12/30/23 1130 documented in this encounter [facility] 12-23-2023 History of Present illness Narrative 15 minute wkuu-mq-jlic follow-up anticoagulation appointment. INR performed in office [...] RPH 12/23/23 1123 documented in this encounter [facility] 12-13-2023 History of Present illness Narrative Subjective [...] currently under control on losartan and spironolactone 6-ngmh-osceqzi intolerance leading to significant bradycardia. Will avoid [...] benign 6. 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 High [...] discussion and plan. documented in this encounter [place] Work Phone: 12-13-2023 Instructions Silvia Fowler LPN [...] up per routine documented in this encounter [place] Work Phone: 12-09-2023 History of Present illness Narrative 15 minute teil-tf-cgbc follow-up anticoagulation appointment. INR performed in office [...] RPH 12/09/23 1125 documented in this encounter [facility] 12-01-2023 Hospital Discharge instructions Additional Instructions Please follow-up at the Coumadin clinic and discussed that your INR here was subtherapeutic at 1.6. [facility] Work Phone: 11-30-2023 History of Present illness Narrative 15 minute vvrc-ag-sizh follow-up anticoagulation appointment. INR performed in office [...] RPH 11/30/23 1552 documented in this encounter [facility] [facility] 11-18-2023 History of Present illness Narrative 15 minute zvou-vx-juou follow-up anticoagulation appointment. INR performed in office [...] and increase weekly warfarin dose to 2.5mg Mon/Tue/Tue, 1.25 mg AODs. Check INR in 12 day(s). Patient verbalizes understanding of anticoagulant dosing instructions and information discussed. Dosing regimen, counseling, and follow-up appointment were provided to the patient. Patient reminded to call with questions or any medication changes. Patient instructed to seek medical attention if any major bleeding/bleeding that persists or worsens. Adi Watters RPH 11/18/23 1138 documented in this encounter [facility] 11-11-2023 History of Present illness Narrative 15 minute ujxl-qh-dlao follow-up anticoagulation appointment. INR performed in office [...] RPH 11/11/23 1059 documented in this encounter [facility] 11-08-2023 History of Present illness Narrative 15 minute yzva-nh-mvrs follow-up anticoagulation appointment. INR performed in office [...] RPH 11/08/23 0934 documented in this encounter [facility] 11-04-2023 History of Present illness Narrative 15 minute hacr-zn-zoiw follow-up anticoagulation appointment. INR performed in office [...] RPH 11/04/23 1322 documented in this encounter [facility] 10-31-2023 History of Present illness Narrative 15 minute fpun-nf-hpzu follow-up anticoagulation appointment. INR performed in office [...] a few 5 mg doses. (5 mg Sun/Th, 2.5 mg AOD would be 22.5 mg/week). [...] RPH 10/31/23 1619 documented in this encounter [facility] 10-28-2023 History of Present illness Narrative 30 minute jtgp-pe-qlhx new anticoagulation appointment. INR performed in office [...] [x] Medication list up-to-date Communication [x] Notifying [employer] of any major changes with health, diet, medications, recent hospitalizations or upcoming procedures and having patient notify other providers that they are on warfarin Warfarin and diet concerns [x] Vitamin K effects Lifestyle [x] Alcohol consumption affect on INR [x] Tobacco use affect on INR Adi Watters RPH 10/28/23 1428 documented in this encounter [facility] 10-24-2023 History of Present illness Narrative [facility] Medication Therapy Management received a new referral from Dr. Jacquelin Haas on 10/24/2023 at 1:33 pm. The information below is outlined from the referral: Demographics [facility] 1945 female [facility] clinic location / home health agency: [facility] Anticoagulation Details Indication: Paroxysmal Atrial Fibrillation Severe [...] be discussed in depth during the initial deuf-ig-iyxw visit with a [facility] clinical pharmacist and/or during the initial phone [...] states that she was not approved from [facility]. Note on 10/16 states that patient is ok with switching to warfarin and would like to use [facility]. No dosing nor tablet strength is provided on fax. Her predicted CHADS-VASc score is 7 (age-2, sex-1, CHF-1, HTN-1, hx VTE-2) so bridging would be recommended for any procedures. Called Dr. Haas's office (P: [phone]) at [facility]. Left VM on nurse's line requesting a call back to confirm that warfarin has not yet been prescribed and if patient can get more Eliquis samples for bridging to warfarin. Noted that script writer calculated a high CHADS-VASc score and that bridging would likely be preferred. Called patient at [phone] (home) 10/25/23 11:50 AM and she reports [...] 5 mg daily tonight. Script sent to [facility] in [place] with request for it to be filled today. Patient scheduled for initial INR appt at [facility] on Tue10/28/23. Alisa Hamilton RPH 10/25/23 1208 [facility] from [facility] (P: [phone], option 4). She is returning a call to Christina with regards to clarification of orders. Please return her call. Returned call and spoke with nurse Silvia. She reviewed notes in patient chart and advised that Dr. Haas recommended starting at warfarin 4 mg daily and that no bridging is needed. He recommended checking INR in 5-7 days. Noted that warfarin 5 mg tablet was sent in today and that patient was advised to bridge with Eliquis. Nurse advised that she will let Dr. Haas know plan. Informed her that script writer will return a call to patient and advise her that bridging with Eliquis is not needed. Called patient 1:26 PM and advised her to stop Eliquis when she starts taking warfarin. She v/u. Alisa Hamilton [facility] 10/25/23 1327 documented in this encounter [facility] 09-16-2023 Hospital Discharge instructions Patient [...] include: ?8 oz (237 mL) of milk, amrjkiv-nyxlcxgzlrhi-sptgb milk, and calcium-fortifiedfruit juice. Calcium-fortified means that [...] ?Spinach (cooked), rhubarb, beets, sweet potatoes, and Moldovan chard. ?Peanuts. ?Potato chips, greenlandic fries, and baked potatoes with skin on. ?Nuts and nut products. ?Chocolate. If you regularly take a diuretic medicine, make sure to eat at least 1 or 2 servings of fruits or vegetables that are high in potassium each day. These include: ?Avocado. ?Banana. ?Amelia, prune, carrot, or tomato juice. ?Baked potato. [...] magnesium, fish oil, or vitamin B6. Take zsog-pyw-rwswhdz and prescription medicines only as told by [...] Casseroles. Pizza. Lasagna. Frozen meals. Potato chips. Citizen Of The [place] fries. The items listed above may not [...] provider. Document Revised: 05/06/2022 Document Reviewed: 05/06/2022 [employer] Patient Education 2022 [employer] Follow Up Care 09/13/2022 11:22:10 With:HARPER DE LA ROSA, Allyson Montenegro, URL Address: [address] [place] [address] [place] [address]- When: Unknown [facility] 08-04-2023 History of Present illness Narrative Images from the original note were not included. [address] [place] [id number] Subjective: Eduardo Howard is a 77 y.o. female who presents for a Medicare Annual Wellness exam. 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 Preoperative clearance 11/11/2020 Essential hypertension 03/03/2020 Chronic diastolic congestive heart failure ([facility]) 03/09/2019 Pulmonary emboli ([facility]) 03/03/2019 Shortness of breath 02/16/2019 PUD (peptic ulcer disease) 02/08/2019 Paroxysmal A-fib ([facility]) 02/01/2019 Nephrolithiasis 07/21/2017 H/O gastric bypass 07/21/2017 Past Medical History: Diagnosis Date Arthritis Atrial fibrillation Bowel obstruction ([facility]) Chronic diastolic congestive heart failure ([facility]) 03/09/2019 Chronic kidney disease H/O gastric bypass HL (hearing loss) left hearing aid Hypertension Pulmonary embolism ([facility]) Shortness of breath Visual impairment glasses Past Surgical History: Procedure Laterality Date BREAST BIOPSY Right 2007 STEREOTACTIC BX BENIGN CARDIAC CATHETERIZATION CATARACT EXTRACTION COLONOSCOPY EGD N/A 03/05/2019 Performed by Lonnie Fields DO at [facility] EGD N/A 02/08/2019 Performed by oLnnie Fields DO at [facility] GASTRIC BYPASS LAPAROSCOPIC CHOLECYSTECTOMY N/A 02/02/2019 Performed by Lonnie Fields DO at [facility] LITHOTRIPSY PANNICULECTOMY TONSILLECTOMY TOOTH EXTRACTION TUBAL [...] profile includes TSH FT4; Future Paroxysmal A-fib ([facility]) - CBC auto differential; Future - Comprehensive metabolic panel; Future - Lipid profile; Future - Thyroid profile includes TSH FT4; Future Chronic diastolic congestive heart failure ([facility]) H/O gastric bypass Encounter for screening mammogram for malignant neoplasm of breast - Mammography screening bilateral with CAD; Future Acoustic neuroma ([facility]) Single subsegmental pulmonary embolism without acute cor pulmonale ([facility]) Follow Up: Fasting labs and mammogram ordered recheck in 6m Pt is trying lose weight documented in this encounter [facility] 08-04-2023 Instructions Andrei Wiseman MD - 08/04/2023 [...] services: Not applicable documented in this encounter [facility] 05-11-2023 Miscellaneous Notes [employer] requesting refill of Pantoprazole documented in this encounter [facility] 05-11-2023 Telephone encounter Note [employer] requesting refill of Pantoprazole [facility] 03-01-2023 Evaluation + Plan note Associated Problem(s): BMI 34.0-34.9,adult Reviewed the merits of healthy lifestyle choices on overall cardiovascular health. 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 Associated Problem(s): senior care current use of anticoagulant therapy CHADS VASc [...] of the month documented in this encounter [facility] Work Phone: 03-01-2023 Evaluation + Plan note [...] Maintained on magnesium, Most recent potassium 4.9 [facility] Work Phone: 03-01-2023 Evaluation + Plan note Associated Problem(s): Paroxysmal atrial fibrillation (CMS/HCC) EKG in office bigeminy, underlying sinus rhythm January 2023 Holter no recurrent PAF [facility] Work Phone: 03-01-2023 Evaluation + Plan note Associated Problem(s): Mild CAD 2014 cardiac cath trivial coronary artery disease September 2021 MPI no ischemia FC III fatigue and shortness of breath Daily activity less than 4 METS due to symptoms [facility] Work Phone: 03-01-2023 Evaluation + Plan note Associated Problem(s): Essential hypertension, benign optimal off high-dose Toprol [facility] Work Phone: 03-01-2023 Evaluation + Plan [...] to afford Jardiance: Jan 2023 QRS 104 [facility] Work Phone: 03-01-2023 Evaluation + Plan note Associated Problem(s): 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 use Amiodarone start date September 07, 2021 EKG in office bigeminy, QTc 474 Surveillance testing has been scheduled towards the end of the month [facility] Work Phone: 03-01-2023 History of Present illness [...] no prior syncopal episodes. She denies any rzak-ycl-lxfyvyh medications, no energy drinks, no diet pills. [...] date September 07, 2021 EKG in office bigin, QTc 474 Surveillance testing has been scheduled [...] Paroxysmal atrial fibrillation (CMS/HCC) EKG in office bigemin, underlying sinus rhythm January 2023 Holter no [...] OV. Toprol discontinued. Mar 01 2022: E[facility] Denies any dizziness, lightheadedness. No prior syncopal episodes. 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 Jones after testing Delilah Turner MSN, CLOTH SHADER-PERSONNEL GENERALIST MANAGER, PMHNP[facility] Please excuse any errors in grammar or translation related to this dictation. Voice recognition software was utilized to prepare this document. documented in this encounter [facility] Work Phone: 03-01-2023 Instructions LUCI Guido - [...] Jones after testing documented in this encounter [facility] Work Phone: 02-22-2023 Evaluation + Plan note Associated Problem(s): BMI 34.0-34.9,adult Reviewed the merits of healthy lifestyle choices on overall cardiovascular health. [facility] Work Phone: 02-22-2023 Evaluation + Plan note Associated Problem(s): senior care current use of anticoagulant therapy CHADS VASc 5 low-dose Eliquis Unable to tolerate full dose Eliquis due to persistent vaginal bleeding [facility] Work Phone: 02-22-2023 Miscellaneous Notes Associated Problem(s): BMI 34.0-34.9,adult Reviewed the merits of healthy lifestyle choices on overall cardiovascular health. 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 [facility] Work Phone: 02-22-2023 Evaluation + Plan note Associated Problem(s): Paroxysmal atrial fibrillation (CMS/HCC) EKG in office sinus bradycardia January 2023 Holter no recurrent PAF [facility] Work Phone: 02-22-2023 Evaluation + Plan note Associated Problem(s): Mild CAD 2014 cardiac cath trivial coronary artery disease September 2021 MPI no ischemia [facility] Work Phone: 02-22-2023 Evaluation + Plan note Associated Problem(s): Essential hypertension, benign Optimal in office [facility] Work Phone: 02-22-2023 Evaluation + Plan note Associated Problem(s): Cardiomyopathy (CMS/HCC) HFrEF 30-35% Jan 2023 TTE ( September 2021 MPI EF 48%: August 2021 TTE 30 to 35%, 2014 cath EF 45%) Functional class II-3 stage C GDMT: High-dose Toprol - needs stopped due to profound bradycardia Losartan Aldactone Entersto: no insurance coverage, unable to afford Jardiance: Jan 2023 QRS 104 [facility] Work Phone: 02-22-2023 Evaluation + Plan note Associated Problem(s): 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 use Amiodarone start date September 07, 2021 EKG in office sinus bradycardia, QTc 383 Surveillance testing has been scheduled towards the end of the month [facility] Work Phone: 02-21-2023 History of Present [...] seen in the office in 1 week. senior care current use of anticoagulant therapy CHADS VASc [...] contact the office if new symptoms arise. LOG DECKMAN one week 3. Labs (chem6, TSH) Delilah Turner MSN, LUCI, PMHNP-[facility] Please excuse any errors in grammar or translation related to this dictation. Voice recognition software was utilized to prepare this document. documented in this encounter [facility] Work Phone: 02-21-2023 Instructions LUCI Guido - [...] contact the office if new symptoms arise. LOG DECKMAN one week 3. Labs (chem6, TSH) documented in this encounter [facility] Work Phone: 02-13-2023 Miscellaneous Notes [facility] requesting refill of Losartan documented in this encounter [facility] 02-13-2023 Telephone encounter Note [facility] 02-01-2023 History of Present illness Narrative Images from the original note were not included. [id number] [facility] [id number] SUBJECTIVE: Patient ID: Eduardo Howard is a [...] Try kristina generic documented in this encounter [facility] 01-17-2023 Evaluation + Plan note Associated Problem(s): BMI 34.0-34.9,adult Reviewed the merits of healthy lifestyle choices on overall cardiovascular health. [place] Work Phone: 01-17-2023 Evaluation + Plan note Associated Problem(s): senior care current use of anticoagulant therapy CHADS VASc 5 low-dose Eliquis Unable to tolerate full dose Eliquis due to persistent vaginal bleeding [place] Work Phone: 01-17-2023 Miscellaneous Notes Associated Problem(s): BMI 34.0-34.9,adult Reviewed the merits of healthy lifestyle choices on overall cardiovascular health. Associated Problem(s): senior care current use of anticoagulant therapy CHADS VASc [...] completed July 2022 documented in this encounter [place] Work Phone: 01-17-2023 Evaluation + Plan note Associated Problem(s): Mild CAD 2013 cardiac cath trivial coronary artery disease September 2021 MPI no ischemia [facility] Work Phone: 01-17-2023 Evaluation + Plan note Associated Problem(s): Essential hypertension, benign Optimal in office [facility] Work Phone: 01-17-2023 Evaluation + Plan [...] to Entresto and initiate Jardiance if warranted. [facility] Work Phone: 01-17-2023 Evaluation + Plan note Associated Problem(s): 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 use Amiodarone start date September 07, 2021 EKG in office maintaining sinus bradycardia with PVCs, QTc 451 Surveillance testing completed July 2022 [facility] Work Phone: 01-17-2023 History of Present [...] EF. [facility] J[facility]iance if warranted. 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 LOG DECKMAN one month 5. 24 hour holter Delilah Turner MSN, CLOTH SHADER-PERSONNEL GENERALIST MANAGER, PMHNP-[facility] Please excuse any errors in grammar or translation related to this dictation. Voice recognition software was utilized to prepare this document. documented in this encounter [place] Work Phone: 01-17-2023 Instructions LUCI Guido - [...] contact the office if new symptoms arise. LOG DECKMAN one month documented in this encounter [facility] Work Phone: 09-13-2022 Hospital Discharge instructions Patient Education 09/13/2022 11:04:19 Kidney Stones, Hjag-bz-Nhkv Kidney Stones Kidney stones are rock-like masses [...] Follow these instructions at home: Medicines Take mhha-jhc-txruhwx and prescription medicines only as told by [...] provider. Document Revised: 09/28/2021 Document Reviewed: 09/28/2021 [employer] Patient Education 2022 [employer]. Follow Up Care 06/09/2022 09:35:46 With:HARPER DE LA ROSA, Allyson [place], URL Address: [facility] [address], [place] [address]- [phone] When: Unknown [facility] 10-08-2020 Note HNO ID: [id number] Author: Phil Brooks MD Service: ? Author Type: Physician Type: Progress Notes Filed: 10/07/2020 10:56 PM Note Text: PATIENT NAME: Hernando Howard CLINIC NO.: [id number] ATTENDING PHYSICIAN: Phil Brooks MD DATE OF [...] Breast: No palpa (more content not included)... [facility] Chief complaint Narrative - Reported SELF REFERRAL RE-ESTABLISH ISSUE WITH MEDS. [facility] [facility] DO Work Phone: Chief complaint Narrative - Reported SELF REFERRAL RE-ESTABLISH ISSUE WITH MEDS. [facility] Work Phone: Evaluation + Plan note Future Appointments Appointment Date:09/16/2023 10:15:00 AM Scheduled Provider:[facility] Office Visit [facility] Evaluation + Plan note Future Appointments Appointment Date:09/16/2023 10:15:00 AM Scheduled Provider:Allyson SALEEM MD Location:[facility] Appointment Type:URO Office Visit Diagnostic Tests PendingUrine Culture 09/22/22 [facility] Evaluation + Plan note Future Appointments Appointment Date:09/17/2024 10:15:00 AM Scheduled Provider:Allyson SALEEM MD Location:[facility] Appointment Type:URO Office Visit [facility] Evaluation + Plan note Future Appointments Appointment Date:10/23/2024 02:30:00 PM Scheduled Provider:Allyson SALEEM MD Location:[facility] Appointment Type:URO Procedure 15 min [facility] Evaluation note No assessment inform ation available [facility] Work Phone: Evaluation note Diagnosis Paroxysmal atrial fibrillation (CMS/HCC)- Primary Atrial fibrillation 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 Cardiomyopathy, unspecified type (CMS/HCC) Mild CAD Essential hypertension, benign BMI 34.0-34.9,adult Abnormal electrocardiogram (ECG) (EKG) documented in this encounter [place] Work Phone: Evaluation note* Diagnosis Cardiomyopathy, unspecified type (CMS/HCC) Abnormal electrocardiogram (ECG) (EKG) documented in this encounter [place] Work Phone: Evaluation note* Diagnosis Cardiomyopathy, unspecified type (CMS/HCC) Abnormal electrocardiogram (ECG) (EKG) documented in this encounter [place] Work Phone: Evaluation note* Diagnosis Cardiomyopathy, unspecified type (CMS/HCC)- Primary Paroxysmal atrial fibrillation (CMS/HCC) Atrial fibrillation 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 use Mild CAD Essential hypertension, benign 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 BMI 34.0-34.9,adult Sick sinus syndrome (CMS/HCC) Sinoatrial node dysfunction documented in this encounter [place] Work Phone: Evaluation note* Diagnosis Other cardiomyopathy (CMS/HCC)- Primary Sick sinus syndrome (CMS/HCC) Sinoatrial node dysfunction Paroxysmal atrial fibrillation (CMS/HCC) Atrial fibrillation 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 Mild CAD Essential hypertension, benign BMI 34.0-34.9,adult Abnormal electrocardiogram (ECG) (EKG) documented in this encounter [place] Work Phone: Evaluation note* Diagnosis Paroxysmal atrial fibrillation (Multi)- Primary Atrial fibrillation 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 Cardiomyopathy, unspecified type (Multi) Mild CAD Essential hypertension, benign BMI 34.0-34.9,adult Abnormal electrocardiogram (ECG) (EKG) Cardiomyopathy, unspecified type (Multi)- Primary Paroxysmal atrial fibrillation (Multi) Atrial fibrillation 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 use Mild CAD Essential hypertension, benign senior care current use of anticoagulant therapy BMI 34.0-34.9,adult Sick sinus syndrome (Multi) Sinoatrial node dysfunction Other cardiomyopathy- Primary Sick sinus syndrome (Multi) Sinoatrial node dysfunction Paroxysmal atrial fibrillation (Multi) Atrial fibrillation 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 Mild CAD Essential hypertension, benign BMI 34.0-34.9,adult Abnormal electrocardiogram (ECG) (EKG) Paroxysmal atrial fibrillation (Multi)- Primary Atrial fibrillation PVC (premature ventricular contraction) Other premature beats Mild CAD Essential hypertension, benign Dilated cardiomyopathy (Multi) Other primary cardiomyopathies Sick sinus syndrome (Multi) Sinoatrial node dysfunction senior care current use of anticoagulant therapy 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 use Never smoked cigarettes BMI 33.0-33.9,adult Obesity, Class I, BMI 30-34.9 documented in this encounter [place] Work Phone: Evaluation note* Diagnosis Paroxysmal atrial fibrillation (Multi)- Primary Atrial fibrillation 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 Cardiomyopathy, unspecified type (Multi) Mild CAD Essential hypertension, benign BMI 34.0-34.9,adult Abnormal electrocardiogram (ECG) (EKG) Cardiomyopathy, unspecified type (Multi)- Primary Paroxysmal atrial fibrillation (Multi) Atrial fibrillation 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 use Mild CAD Essential hypertension, benign 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 BMI 34.0-34.9,adult Sick sinus syndrome (Multi) Sinoatrial node dysfunction Other cardiomyopathy- Primary Sick sinus syndrome (Multi) Sinoatrial node dysfunction Paroxysmal atrial fibrillation (Multi) Atrial fibrillation 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 use senior care current use of anticoagulant therapy Mild CAD Essential hypertension, benign BMI 34.0-34.9,adult Abnormal electrocardiogram (ECG) (EKG) Dilated cardiomyopathy (Multi) Other primary cardiomyopathies documented in this encounter [place] Work Phone: Evaluation note* Diagnosis Paroxysmal A-fib (CMS-HCC)- Primary [facility] Diagnosis Paroxysmal A-fib (CMS-HCC)- Primary [facility] Diagnosis Essential hypertension- Primary Unspecified essential hypertension Paroxysmal A-fib (CMS-HCC) Chronic diastolic congestive heart failure (CMS-HCC) H/O gastric bypass Nephrolithiasis Calculus of kidney [facility] Diagnosis Routine general medical examination at a health care facility- Primary Essential hypertension Unspecified essential hypertension Paroxysmal A-fib (CMS-HCC) Chronic diastolic congestive heart failure (CMS-HCC) H/O gastric bypass Encounter for screening mammogram for malignant neoplasm of breast 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 Single subsegmental pulmonary embolism without acute cor pulmonale (CMS-HCC) [facility] Diagnosis Atrial fibrillation, unspecified type (CMS-HCC)- Primary [facility]* Diagnosis Atrial fibrillation, unspecified type (CMS-HCC)- Primary [facility]* Diagnosis Atrial fibrillation, unspecified type (CMS-HCC)- Primary [facility]* Diagnosis Atrial fibrillation, unspecified type (CMS-HCC)- Primary [facility]* Diagnosis Paroxysmal A-fib (CMS-HCC)- Primary Paroxysmal atrial fibrillation (CMS-HCC)- Primary Atrial fibrillation [facility]* Diagnosis Paroxysmal A-fib (CMS-HCC)- Primary [facility]* Diagnosis Atrial fibrillation, unspecified type (CMS-HCC)- Primary [facility]* Diagnosis Paroxysmal A-fib (CMS-HCC)- Primary Single subsegmental pulmonary embolism without acute cor pulmonale (CMS-HCC) [facility]* Diagnosis Paroxysmal atrial fibrillation (Multi)- Primary Atrial fibrillation 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 Cardiomyopathy, unspecified type (Multi) Mild CAD Essential hypertension, benign BMI 34.0-34.9,adult Abnormal electrocardiogram (ECG) (EKG) Cardiomyopathy, unspecified type (Multi)- Primary Paroxysmal atrial fibrillation (Multi) Atrial fibrillation 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 use Mild CAD Essential hypertension, benign 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 BMI 34.0-34.9,adult Sick sinus syndrome (Multi) Sinoatrial node dysfunction Other cardiomyopathy- Primary Sick sinus syndrome (Multi) Sinoatrial node dysfunction Paroxysmal atrial fibrillation (Multi) Atrial fibrillation 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 use senior care current use of anticoagulant therapy Mild CAD Essential hypertension, benign BMI 34.0-34.9,adult Abnormal electrocardiogram (ECG) (EKG) Chronic systolic heart failure- Primary Essential hypertension, benign Cardiomyopathy, unspecified type (Multi) 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 use Paroxysmal atrial fibrillation (Multi) Atrial fibrillation Chronic diastolic congestive heart failure 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 PVC (premature ventricular contraction) Other premature beats BMI 32.0-32.9,adult Never smoked cigarettes Obesity, Class I, BMI 30-34.9 documented in this encounter [place] Work Phone: Evaluation note* Diagnosis Rhinopharyngitis- Primary Acute nasopharyngitis (common cold) Paroxysmal A-fib (CMS-HCC) Single subsegmental pulmonary embolism without acute cor pulmonale (CMS-HCC) [facility] Diagnosis Paroxysmal atrial fibrillation (Multi)- Primary Atrial fibrillation 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 use senior care current use of anticoagulant therapy Cardiomyopathy, unspecified type (Multi) Mild CAD Essential hypertension, benign BMI 34.0-34.9,adult Abnormal electrocardiogram (ECG) (EKG) Cardiomyopathy, unspecified type (Multi)- Primary Paroxysmal atrial fibrillation (Multi) Atrial fibrillation 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 use Mild CAD Essential hypertension, benign 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 BMI 34.0-34.9,adult Sick sinus syndrome (Multi) Sinoatrial node dysfunction Other cardiomyopathy- Primary Sick sinus syndrome (Multi) Sinoatrial node dysfunction Paroxysmal atrial fibrillation (Multi) Atrial fibrillation 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 use senior care current use of anticoagulant therapy Mild CAD Essential hypertension, benign BMI 34.0-34.9,adult Abnormal electrocardiogram (ECG) (EKG) 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 use Paroxysmal atrial fibrillation (Multi) Atrial fibrillation documented in this encounter [place] Work Phone: Evaluation note* Diagnosis Yeast infection- Primary [facility] Diagnosis Encounter for Medicare annual wellness exam- Primary Paroxysmal A-fib ([facility]) Single subsegmental pulmonary embolism without acute cor pulmonale ([facility]-HCC) Chronic diastolic congestive heart failure ([facility]-H[facility]) Essential hypertension Unspecified essential hypertension 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 Yeast infection PUD (peptic ulcer disease) Peptic ulcer, unspecified site, unspecified as acute or chronic, without mention of hemorrhage, perforation, or obstruction Hypothyroidism (acquired) Unspecified hypothyroidism documented [facility]* Diagnosis Paroxysmal A-fib (CMS-HCC)- Primary documented [facility] encounter [facility]* Diagnosis PUD (peptic ulcer disease) Peptic ulcer, unspecified site, unspecified as acute or chronic, without mention of hemorrhage, perforation, or obstruction documented [facility]* Diagnosis Paroxysmal atrial fibrillation (Multi)- Primary Atrial fibrillation 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 use senior care current use of anticoagulant therapy Cardiomyopathy, unspecified type (Multi) Mild CAD Essential hypertension, benign BMI 34.0-34.9,adult Abnormal electrocardiogram (ECG) (EKG) Cardiomyopathy, unspecified type (Multi)- Primary Paroxysmal atrial fibrillation (Multi) Atrial fibrillation 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 use Mild CAD Essential hypertension, benign senior care current use of anticoagulant therapy BMI 34.0-34.9,adult Sick sinus syndrome (Multi) Sinoatrial node dysfunction Other cardiomyopathy- Primary Sick sinus syndrome (Multi) Sinoatrial node dysfunction Paroxysmal atrial fibrillation (Multi) Atrial fibrillation 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 In the past she was found to have trivial coronary atherosclerosis and mild impairment of left ventricular systolic function. Subsequently, though, she was lost to follow-up and she has been getting her care in [facility] from the [place] [facility] group * Recently, her construction skills teacher became ill and she has not had any continuity of care ever since. She had been plagued by paroxysmal atrial fibrillation and it appears that the attending construction skills teacher placed her on flecainide. This would lead [...] diet and weight loss in the interim. -[facility] DO Work Phone: History of Present illness Narrative* Patient is referred for management after long absence. In the past she was found to have trivial coronary atherosclerosis and mild impairment of left ventricular systolic function. Subsequently, though, she was lost to follow-up and she has been getting her care in [facility] from the [place] [facility]ology group * Recently, her construction skills teacher became ill and she has not had any continuity of care ever since. She had been plagued by paroxysmal atrial fibrillation and it appears that the attending construction skills teacher placed her on flecainide. This would lead [...] diet and weight loss in the interim. [facility] Work Phone: History of Present illness Narrative* [...] medication regimen. She denies medication side effects. [facility] [employer] Work Phone: History of Present illness Narrative* [...] medication regimen. She denies medication side effects. [facility] [employer] Work Phone: History of Present illness Narrative* [...] medication regimen. She denies medication side effects. [employer] Work Phone: History of Present illness Narrative* [...] merits of diet exercise and weight loss. -[facility] DO Work Phone: History of Present illness Narrative* Olinda Elena, [facility] - 12/16/2023 3:15 PM EST 15 minute [id number] follow-up anticoagulation appointment. INR performed in office [...] her income and she would qualify for [employer] PAP. Application printed and encouraged patient to speak with her construction skills teacher about changing to [employer]. Plan: Patient instructed [...] Elena RPH 12/16/23 1449 documented in this [facility] Narrative No data available for this section [facility] Hospital Discharge instructions No data available for this section [facility] InstructionsNot on filedocumented in this encounter [facility]ructionsNot on filedocumented in this encounter [facility]* Attachments The following attachments cannot be sent through Care Everywhere. * Heart Failure, Adult (Congolese) documented in this encounterPro[facility]ica Health SystemInstructionsNot on file documented in this encounterProMedifl Health SystemInstructionsNot on file documented in this encounterProMedifl Health SystemInstructionsNot on file documented in this encounterProMedica Health SystemInstructionsNot on file documented in this encounterProMediBambisa Health SystemInstructionsNot on file documented in this encounterProMediBambisa Health SystemInstructionsNot on file documented in this encounterProMedifl Health SystemInstructionsNot on file documented in this encounterProUniversity [facility] SystemBambisa Health SystemInstructionsNot on file documented in this encounterProMediBambisa Health SystemInstructionsNot on file documented in this encounterProUniversity Hospitals Health SystemBambisa Health SystemProgress note No data available for this section [facility] reason for referral (narrative)* Consultation (Routine) - Authorized Specialty Diagnoses / Procedures Referred By Jenny walker Referred To Contact Cardiology Diagnoses Sick sinus syndrome (CMS/HCC) Procedures Follow Up In Cardiology Dleilah Turner, CLOTH SHADER-PERSONNEL GENERALIST MANAGER [address] [facility] [address], [facility] [address] [place] [address] Referral ID Status Reason Start Date Expiration Date V isits Requested Visits Authorized [id number] Authorized 02/21/2023 02/21/2024 1 1 * Cardiovascular (Routine) - Authorized Specialty Diagnoses / Procedures Referred By Contac t Referred To Contact Diagnoses Sick sinus syndrome (CMS/HCC) Procedures ECG 12 Lead Delilah Turner APRN-PERSONNEL GENERALIST MANAGER [address] [facility] [address], [place] [address] [place] [id number] Referral ID Status Reason Start Date Expiration Date V isits Requested Visits Authorized [id number] Authorized 02/21/2023 02/21/2024 1 1 [place] Work Phone: reason for visit Narrative* CV Imaging (Routine) - Authorized Specialty Diagnoses / Procedures [facility] Referred To Contact Cardiology Diagnoses Dilated cardiomyopathy (Multi) Procedures Transthoracic Echo Complete UT ECHO TTHRC R-T 2D W/WOM-MODE COMPL SPEC&COLR D Yvonne Haas MD [address] [facility] [address], [address] [address] Phone: tel: fax: Referral ID Status Reason Start Date Expiration Date Visits Requested Visits Authorized [id number] Authorized Perform Procedure 12/13/2023 12/12/2024 1 1 [place] Work Phone: reason for visit Narrative* CV Imaging (Routine) - Authorized Specialty Diagnoses / Procedures [facility] Referred To Contact Cardiology Diagnoses Other cardiomyopathy Chronic diastolic congestive heart failure Procedures Transthoracic Echo Limited UT ECHO TRANSTHORC R-T 2D W/WO M-MODE REC F-UP/LMTD UT DOPPLER ECHO COLOR FLOW VELOCITY MAPPING UT DOPPLER ECHO PULSE WAVE W/SPECTRAL F-UP/LMTD STD Yvonne Haas MD [address] [facility] [address], [place] [address] [place] [address] Phone: tel: fax: Referral ID Status Reason Start Date Expiration Date Visits Requested Visits Authorized [id number] Authorized Perform Procedure 07/25/2024 07/25/2025 1 1 [place] Work Phone: Summary Purpose Family History No [...] maintenance of NSR. Amiodarone Order sent to [facility] for testing due ARIEL - baselinesVIRBRITTANY HOWARD is being seen for a 3 month follow-up of.Amiodarone Order sent to [facility] for testing due in April Chief Complaint and Reason for Visit Chief Complaint i48.0 [id number] Chief Complaint I42.9;Z79.899;I49.5 Chief Complaint I42.9;Z79.899;I49.5 i48.0 z79.899 i48.0 z79.899 Chief Complaint weakness,trouble fabricio athing Reason for Referral Specialty Diagnoses / Procedures Referred By Contac t Referred To Contact Diagnoses 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 use Procedures ECG 12 Lead Delilah Turner [facility] [address] [facility] [address], [address] [address] Referral ID Status Reason Start Date Expiration Date V isits Requested Visits Authorized [id number] Authorized 03/01/2023 02/29/2024 1 1 Specialty Diagnoses / Procedures Referred By Contac t Referred To Contact Radiology Diagnoses Other cardiomyopathy (CMS/HCC) Paroxysmal atrial fibrillation (CMS/HCC) Essential hypertension, benign Abnormal electrocardiogram (ECG) (EKG) Procedures Nuclear Stress Test CHG MYOCARDIAL SPECT MULTIPLE STUDIES CHG MYOCARDIAL SPECT SINGLE STUDY AT REST OR STRESS Delilah Turner [facility] [address] [place] [address] [address], [address] [address] Referral ID Status Reason Start Date Expiration Date V isits Requested Visits Authorized [id number] Pending Review 03/01/2023 02/29/2024 5 5 Specialty Diagnoses / Procedures Referred By Contac t Referred To Contact Cardiology Diagnoses Sick sinus syndrome (CMS/HCC) Paroxysmal atrial fibrillation (CMS/HCC) Procedures Holter Or Event Rn Pediatric Icu Delilah Turner [facility] [address] [facility] [address], [place] [id number] Referral ID Status Reason Start Date Expiration Date V isits Requested Visits Authorized [id number] Pending Review 03/01/2023 02/29/2024 1 1 Specialty Diagnoses / Procedures Referred By Contac t Referred To Contact Cardiology Diagnoses Paroxysmal atrial fibrillation (CMS/HCC) Procedures Holter Or Event Rn Pediatric Icu Delilah Turner [facility] [address] [facility] [address], [address] [address] Referral ID Status Reason Start Date Expiration Date V isits Requested Visits Authorized [id number] Pending Review 01/17/2023 01/17/2024 1 1 Specialty Diagnoses / Procedures Referred By Contac t Referred To Contact Cardiology Diagnoses Cardiomyopathy, unspecified type (CMS/HCC) Procedures Follow Up In Cardiology Delilah Turner, CLOTH SHADER-PERSONNEL GENERALIST MANAGER [address] [facility] [address], [address] [address] Referral ID Status Reason Start Date Expiration Date V isits Requested Visits Authorized [id number] Authorized 01/17/2023 01/17/2024 1 1 Specialty Diagnoses / Procedures Referred By Contac t Referred To Contact Diagnoses Paroxysmal atrial fibrillation (CMS/HCC) 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 use Procedures ECG 12 Lead Delilah Turner, CLOTH SHADER-PERSONNEL GENERALIST MANAGER [address] [facility] [address], [address] [address] Referral ID Status Reason Start Date Expiration Date V isits Requested Visits Authorized [id number] Pending Review 01/17/2023 01/17/2024 1 1 Specialty Diagnoses / Procedures Referred By Contac t Referred To Contact Cardiology Diagnoses Cardiomyopathy, unspecified type (CMS/HCC) Abnormal electrocardiogram (ECG) (EKG) Procedures Transthoracic Echo (TTE) Complete UT ECHO TRANSTHORC R-T 2D W/WO M-MODE REC F-UP/LMTD UT DOP ECHOCARD COLOR FLOW VELOCITY MAPPING UT DOP ECHOCARD PULSE WAVE W/SPECTRAL F-UP/LMTD STD Delilah Turner Tushar, CLOTH SHADER-PERSONNEL GENERALIST MANAGER [address] [facility] [address], [address] [address] Referral ID Status Reason Start Date Expiration Date Visits Requested Visits Authorized [id number] Pending Review Perform Procedure 01/17/2024 1 1 Additional Source Comments INFORMATION SOURCE (unrecogn ized section and content) DATE CREATED AUTHOR 12/08/2020 [facility] DATE CREATED AUTHOR AUTHOR'S ORGANIZ ATION 03/13/2021 [facility] DATE CREATED AUTHOR AUTHOR'S ORGANIZ ATION 10/20/2021 [facility] DATE CREATED AUTHOR AUTHOR'S ORGANIZ ATION 01/28/2022 [facility] DATE CREATED AUTHOR AUTHOR'S ORGANIZ ATION 01/28/2022 [employer] DATE CREATED AUTHOR AUTHOR'S ORGANIZ ATION 02/03/2024 [facility] DATE CREATED AUTHOR AUTHOR'S ORGANIZ ATION 08/10/2024 [facility] DATE CREATED AUTHOR AUTHOR'S ORGANIZ ATION 09/18/2024 [facility] DATE CREATED AUTHOR AUTHOR'S ORGANIZ ATION 10/12/2024 [facility] DATE CREATED AUTHOR AUTHOR'S ORGANIZ ATION 10/14/2024 [facility] DATE CREATED AUTHOR AUTHOR'S ORGANIZ ATION 10/16/2024 [facility] DATE CREATED AUTHOR AUTHOR'S ORGANIZ ATION 11/12/2024 [facility] Care Teams (unrecognized sec tion and content) Team Status: Active Member Role Status Dates Andrei Wiseman MD Primary Care Provider Active Team Status: Inactive Member Role Status Dates Andrei Wiseman MD Primary Care Provider Active Jose Martin Jones MD Attending Provider Active Clinical Rehabilitation Liaison Relationship Specialty Start Date End Date Andrei Wiseman MD [address] [place] [address] PCP - General 02/07/99 Clinical Rehabilitation Liaison Relationship Specialty Start Date End Date Andrei Wiseman MD [address] [place] [address] PCP - General 02/07/99 Clinical Rehabilitation Liaison Relationship Specialty Start Date End Date Andrei Wiseman MD [address] [place] [address] PCP - General 02/07/99 Team Status: Inactive Member Role Status Dates Andrei Wiseman MD Primary Care Provider Active Delilah Turner APRN Attending Provider Active Clinical Rehabilitation Liaison Relationship Specialty Start Date End Date Andrei Wiseman MD [address] [place] [address] PCP - General 02/07/99 Clinical Rehabilitation Liaison Relationship Specialty Start Date End Date Andrei Wiseman MD [address] [place] [address] PCP - General 02/07/99 Clinical Rehabilitation Liaison Relationship Specialty Start Date End Date Andrei Wiseman MD [address] [place] [address] PCP - General 02/07/99 Clinical Rehabilitation Liaison Relationship Specialty Start Date End Date Andrei Wiseman MD [address] [place] [address] PCP General 02/07/99 Team Status: Inactive Member Role [...] December 01, 2023 End: December 01, 2023 Clinical Rehabilitation Liaison Relationship Specialty Start Date End Date Andrei Wiseman MD PCP - General 02/07/99 Delilah Turner, CLOTH SHADER-PERSONNEL GENERALIST MANAGER [address] [facility] [address] [place] [address] PCP - [facility] Attributed Provider 02/07/23 Clinical Rehabilitation Liaison Relationship Specialty Start Date End Date Andrei Wiseman MD PCP - General 02/07/99 Delilah Turner, CLOTH SHADER-PERSONNEL GENERALIST MANAGER [address] [facility] [address] [place] [address] PCP - [facility] Attributed Provider 02/07/23 Clinical Rehabilitation Liaison Relationship Specialty Start Date End Date Andrei Wiseman MD [address] [place] [address] PCP - General Family Medicine 07/27/16 Clinical Rehabilitation Liaison Relationship Specialty Start Date End Date Andrei Wiseman MD [address] [place] [address] PCP - General Family Medicine 07/27/16 Clinical Rehabilitation Liaison Relationship Specialty Start Date End Date Andrei Wiseman MD [address] [place] [address] PCP - General Family Medicine 07/27/16 Clinical Rehabilitation Liaison Relationship Specialty Start Date End Date Andrei Wiseman MD [address] [place] [address] PCP - General Family Medicine 07/27/16 Clinical Rehabilitation Liaison Relationship Specialty Start Date End Date Andrei Wiseman MD [address] [place] [address] PCP - General Family Medicine 07/27/16 Clinical Rehabilitation Liaison Relationship Specialty Start Date End Date Andrei Wiseman MD [address] [place] [address] PCP - General Family Medicine 07/27/16 Clinical Rehabilitation Liaison Relationship Specialty Start Date End Date Andrei Wiseman MD [address] [place] [address] PCP - General Family Medicine 07/27/16 Clinical Rehabilitation Liaison Relationship Specialty Start Date End Date Andrei Wiseman MD [address] Provider retired 05/08/24 [place] [address] PCP - General Family Medicine 07/27/16 Clinical Rehabilitation Liaison Relationship Specialty Start Date End Date Andrei Wiseman MD [address] Provider retired 05/08/24 [place] [address] PCP - General Family Medicine 07/27/16 Clinical Rehabilitation Liaison Relationship Specialty Start Date End Date Jerome Quick MD [address] [place] [address] PCP - General Internal Medicine 07/16/24 Clinical Rehabilitation Liaison Relationship Specialty Start Date End Date Andrei Wiseman MD [address] [place] [address] PCP - General Family Medicine 07/25/24 Clinical Rehabilitation Liaison Relationship Specialty Start Date End Date Jerome Quick MD [facility] [place] [address] PCP - General Internal Medicine 07/16/24 Clinical Rehabilitation Liaison Relationship Specialty Start Date End Date Jerome Quick MD [address] [place] [address] PCP - General Internal Medicine 07/16/24 Clinical Rehabilitation Liaison Relationship Specialty Start Date End Date Andrei Wiseman MD [address] [place] [address] PCP - General Family Medicine 07/25/24 Clinical Rehabilitation Liaison Relationship Specialty Start Date End Date Jerome Quick MD [address] [place] [address] PCP - General Internal Medicine 07/16/24 Clinical Rehabilitation Liaison Relationship Specialty Start Date End Date Jerome Quick MD [address] [place] [address] PCP - General Internal Medicine 07/16/24 Clinical Rehabilitation Liaison Relationship Specialty Start Date End Date Jerome Quick MD [address] [place] [address] PCP - General Internal Medicine 07/16/24 Clinical Rehabilitation Liaison Relationship Specialty Start Date End Date Jerome Quick MD [address] [place] [address] PCP - General Internal Medicine 07/16/24 Clinical Rehabilitation Liaison Relationship Specialty Start Date End Date Andrei Wiseman MD PCP - General Family Medicine 07/25/24 Clinical Rehabilitation Liaison Relationship Specialty Start Date End Date Jerome Quick MD [address] [place] [address] PCP - General Internal Medicine 07/16/24 Goals [...] use Procedures ECG 12 Lead Delilah Turner [facility] [address] [place] [address], [place] [phone] Referral ID Status Reason Start Date Expiration Date V isits Requested Visits Authorized [id number] Pending Review 01/17/2023 01/17/2024 1 1 Specialty Diagnoses / Procedures Referred By Contac t Referred To Contact Cardiology Diagnoses Cardiomyopathy, unspecified type (CMS/HCC) Abnormal electrocardiogram (ECG) (EKG) Procedures Transthoracic Echo (TTE) Complete UT ECHO TRANSTHORC R-T 2D W/WO M-MODE REC F-UP/LMTD UT DOP ECHOCARD COLOR FLOW VELOCITY MAPPING UT DOP ECHOCARD PULSE WAVE W/SPECTRAL F-UP/LMTD STD Delilah Turner, [facility] [address] [facility] [address], [place] [phone] Referral ID Status Reason Start Date Expiration Date Visits Requested Visits Authorized [id number] Pending Review Perform Procedure 01/17/2024 1 1 Reason Comments Results ECHO Specialty Diagnoses / Procedures Referred By Contac t Referred To Contact Cardiology Diagnoses Cardiomyopathy, unspecified type (CMS/HCC) Procedures Follow Up In Cardiology Delilah Turner [facility] [address] [facility] [address], [address] [address] Referral ID Status Reason Start Date Expiration Date V isits Requested Visits Authorized [id number] Authorized 01/17/2023 01/17/2024 1 1 Reason Comments Follow-up Week per Mimi Specialty Diagnoses / Procedures Referred By Contac t Referred To Contact Cardiology Diagnoses Sick sinus syndrome (CMS/HCC) Procedures Follow Up In Cardiology Delilah Turner, [facility] [address] [facility] [address], [address] [address] Referral ID Status Reason Start Date Expiration Date V isits Requested Visits Authorized [id number] Authorized 02/21/2023 02/21/2024 1 1 Specialty Diagnoses / Procedures Referred By Contac t Referred To Contact Radiology Diagnoses Other cardiomyopathy (CMS/HCC) Paroxysmal atrial fibrillation (CMS/HCC) Essential hypertension, benign Abnormal electrocardiogram (ECG) (EKG) Procedures Nuclear Stress Test CHG MYOCARDIAL SPECT MULTIPLE STUDIES CHG MYOCARDIAL SPECT SINGLE STUDY AT REST OR STRESS Delilah Turner, [facility] [address] [facility] [address], [address] [address] Referral ID Status Reason Start Date Expiration Date V isits Requested Visits Authorized [id number] Pending Review 03/01/2023 02/29/2024 5 5 Reason Comments Follow-up 6m Specialty Diagnoses / Procedures Referred By Contac t Referred To Contact Cardiology Diagnoses Dilated cardiomyopathy (Multi) Procedures Follow Up In Cardiology Jose Martin Jones MD McGuinn, William P, MD Retired From Practice Referral ID Status Reason Start Date Expiration Date V isits Requested Visits Authorized [id number] Authorized 05/24/2023 05/23/2024 1 1 Reason Comments Routine Check up Antidepressants and allergy pills not working anymore Reason Comments Med Refill Reason Comments Annual Exam Medicare Wellness Reason Comments Follow-up 6 month bParoxysmal atrial fibrillation (Multi) Specialty Diagnoses / Procedures Referred By Contac t Referred To Contact Cardiology Diagnoses Essential hypertension, benign Procedures Follow Up In Cardiology Yvonne Haas MD [address] [place] [address] [address], [address] [address] Phone: tel: fax: Yvonne Haas MD [address] [place] [address] [address], [address] [address] Phone: tel: fax: Referral ID Status Reason Start Date Expiration Date V isits Requested Visits Authorized [id number] Authorized 12/13/2023 12/12/2024 1 1 Reason Comments Nasal Congestion Sore Throat Cough Reason Comments EKG visit Specialty Diagnoses / Procedures Referred By Contac t Referred To Contact Diagnoses 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 use Paroxysmal atrial fibrillation (Multi) Procedures ECG 12 Lead Yvonne Haas MD [address] [facility] [address], [facility] [address] [place] [address] Phone: tel: fax: Referral ID Status Reason Start Date Expiration Date V isits Requested Visits Authorized [id number] Authorized 07/25/2024 07/25/2025 1 1 Reason Onset [...] BE BASED ON THE PRIMARY CLINICAL RECORDS. [employer] app [facility]. provides no warranty or guarantee of the accuracy or completeness of information in this document.
--- NOTE | 2024-11-15 06:45 | XR_ITS ---
The [address] [address] Patient Name: EDUARDO HOWARD MRN: [id number] date: 1945 Sex: F Assigned Patient Location: [facility] Current Patient Location: [facility] Accession/Order Number: [id number] Exam Date: 11/15/2024 06:40 Report Date: 11/15/2024 08:06 At the request of: ALLYSON SALEEM MD Procedure: XR abdomen 1V SINGLE VIEW ABDOMEN COMPARISON: 10/04/2024 CLINICAL DATA: Preop evaluation. History of kidney stones. Supine view of the abdomen and pelvis was obtained. There is air and stool within the colon. There is air within nondistended small bowel. Both kidneys are partially obscured. There is redemonstration of multiple right renal stones. The larger suspected cluster measures just over a centimeter in size. Calcifications are also seen at the left upper quadrant. Some may be vascular though there are at least a couple that overlie the area of the left kidney may be stones. They are 3 and 5 mm in size. There are pelvic phleboliths. No soft tissue masses are noted. There is slight levoscoliotic curvature and degenerative changes at the spine. There are hemostasis clips from prior cholecystectomy. XR/XR abdomen 1V IMPRESSION: RIGHT AND POSSIBLE LEFT NEPHROLITHIASIS, as described. Impression dictated by: Stephani Merchant M.D. 11/15/2024 8:06 AM Dictation Location: [place] [address] Electronically authenticated by: [id number] Y Date: 11/15/2024 08:06
[2024-11-15 06:55] LABS: INR 1.17; Partial Thromboplastin Time 27.8 sec (22.3-36.2); Prothrombin Time 12.2 sec (9.0-11.6)
[2024-11-15] MEDS: CEFAZOLIN SODIUM 2 GM/50 ML D5W PREMIX IV (08:05)
--- NOTE | 2024-11-15 09:31 | P.URON_ITS ---
Urology Surgery Operative Note Operative Note Procedure Date: 11/15/24 Time Out Performed: yes Pre-op Diagnosis: Right nephrolithiasis Post-op Diagnosis: same as pre-op Procedures performed: 1. Cystoscopy. 2. Right ureteroscopy. 3. Right pyeloscopy. 4. Thulium laser lithotripsy of multiple right renal calculi. 5. Placement of 6 [place]ander variable length right ureteral stent Anesthesia: GUILLERMO Primary Surgeon: Kailash Ding Complications: None Estimated blood loss (mL): 5 Findings: 1. Multiple Álvaro's plaques in upper mid and lower pole calyces. 2. Multiple stones in the lower pole calyx Specimens: None Drains: 6 [place]alander variable length right ureteral stent Indications for Procedures: This lady has recurrent right nephrolithiasis. She now presents for definitive ureteroscopic laser lithotripsy and probable right stent placement. She has signed an informed consent after risks were explained. Detailed description of Procedure: The patient was brought to the operating room and placed on the operating room table in the supine position. SCDs were placed on the lower extremities and turned on and functioning during the entire case. Timeout was done by all parties in the room. We all agreed upon the patient's identification and the planned procedures for this patient. Genn. anesthesia was then administered. The patient was then repositioned into the modified dorsal lithotomy position. All pressure points were satisfactorily padded. Genitalia were sterilely prepped and draped in usual fashion. I started by passing a 22 [place] Ze[place]ander Olympus cystoscope per urethra and into the bladder. Panendoscopy in the bladder revealed no evidence of any tumors or stones or lesions. I then passed a Glidewire through the scope and up the right ureter and into the kidney. Stones could be seen in the lower pole calyx. The scope was removed and I then passed a 10/12 [place]ander ureteral access sheath over the wire up to the L5 position. The stylette and wire were then removed. I then passed a flexible ureteroscope through the sheath and into the ureter. I ascended up the ureter and then went into the kidney. I looked through all of the upper mid and lower pole calyces. There were numerous Álvaro's plaques. There were multiple hipolito stones still embedded within the papilla and or lining of the calyces. In the lower pole I arrived at multiple stones in a calyx. There were many that were the size of a BB and there were 3 that were approximately 8 to 10 mm each. I then passed a 270 Angstrom laser fiber through the scope and used the thulium laser on the dusting mode at 7 W then 10 and then 15. I then switched to the fragment mode and continued fragmentation. I was able to dust all of the stones. There were only submillimeter fragments and/or sand remaining. The scope was then removed. A wire was then passed through the sheath into the kidney and the sheath was r emoved. Cystoscope was backloaded over the wire and into the bladder and a 6 [place]ander variable length stent was passed up to the right kidney. The wire was removed and there were good curls in the kidney and in the bladder. The bladder was drained of its contents and the scope was then removed. The anesthetic was then reversed. She was then transferred to PACU in stable condition.
== END 2024-11-15 12:40 | disposition home or self-care (01) ==
LOC: SURGOUT 06:30
PROVIDERS: PCP Student in an Organized Health Care Education/Training Program; Visit Provider Urology
PROC: (CPT 52356; principal; 2024-11-15 08:00)
DX: N20.0 Calculus of kidney (principal); Z86.718 Personal history of other venous thrombosis and embolism; Z86.711 Personal history of pulmonary embolism; Z79.01 Long term (current) use of anticoagulants; Z87.442 Personal history of urinary calculi; I48.91 Unspecified atrial fibrillation; E11.9 Type 2 diabetes mellitus without complications; K21.9 Gastro-esophageal reflux disease without esophagitis; F32.A Depression, unspecified; Z90.49 Acquired absence of other specified parts of digestive tract; Z98.84 Bariatric surgery status; Z98.51 Tubal ligation status; Z79.84 Long term (current) use of oral hypoglycemic drugs; I43 Cardiomyopathy in diseases classified elsewhere; I25.10 Atherosclerotic heart disease of native coronary artery without angina pectoris; I11.0 Hypertensive heart disease with heart failure; I50.9 Heart failure, unspecified
CPT/HCPCS: 52356; 36415; 74018; 76000; 85610; 85730; J0690; J1100; J2250; J2371; J2405; J2704; J3010